=== PATIENT | male | born 1935 | race Caucasian/White ===

== ENCOUNTER → 2020-07-10 15:07 | Outpatient (BNVA) | payer MEDICARE, SELFPAY | PROVIDERS: Family Provider Family Medicine; PCP Family Medicine; Referring Provider Family Medicine; Visit Provider Specialist | DX: M79.604 Pain in right leg (principal); M79.605 Pain in left leg; G62.89 Other specified polyneuropathies | CPT/HCPCS: 95909 ==

== ENCOUNTER 2022-01-24 10:00 | Emergency (ER) | payer OTHER, SELFPAY ==
[2022-01-24 10:01] VITALS: BP 164/99; PULSE 75; RESP 17; TEMP 35.9; O2SAT 100; BMI 28.1
[2022-01-24 10:07] VITALS: BP 164/99; PULSE 76; RESP 17; O2SAT 98
--- NOTE | 2022-01-24 10:13 | CTR_ITS ---
PROCEDURE INFORMATION: Exam: CTA Head With Contrast, Arteriography Exam date and time: 01/24/2022 11:14 AM Age: 85 years old Clinical indication: Dizziness and giddiness; Additional info: Vertigo TECHNIQUE: Imaging protocol: Computed tomographic angiography of the head with contrast. Exam focused on the arteries. 3D rendering (Not supervised by radiologist): MIP and/or 3D reconstructed images were created by the technologist. Radiation optimization: All CT scans at this facility use at least one of these dose optimization techniques: automated exposure control; mA and/or kV adjustment per patient size (includes targeted exams where dose is matched to clinical indication); or iterative reconstruction. Contrast material: OMNI 350; Contrast volume: 95 ml; Contrast route: INTRAVENOUS (IV); COMPARISON: No relevant prior studies available. RADIATION DOSE METRICS: Total DLP (mGy-cm): 1068.06 FINDINGS: ANTERIOR CIRCULATION: Right internal carotid artery: There is atherosclerotic plaque most prominent in the carotid siphons with luminal irregularity. Intracranial segment is patent with no significant stenosis. No aneurysm. Right middle cerebral artery: No occlusion or significant stenosis. No aneurysm. Right anterior cerebral artery: No occlusion or significant stenosis. No aneurysm. Left internal carotid artery: There is atherosclerotic plaque most prominent in the carotid siphons with luminal irregularity. Intracranial segment is patent with no significant stenosis. No aneurysm. Left middle cerebral artery: No occlusion or significant stenosis. No aneurysm. Left anterior cerebral artery: No occlusion or significant stenosis. No aneurysm. POSTERIOR CIRCULATION: Right vertebral artery: No occlusion or significant stenosis. No aneurysm. Left vertebral artery: No occlusion or significant stenosis. No aneurysm. Basilar artery: No occlusion or significant stenosis. No aneurysm. Right posterior cerebral artery: No occlusion or significant stenosis. No aneurysm. Left posterior cerebral artery: No occlusion or significant stenosis. No aneurysm. Brain: There is diffuse cerebral atrophy present, consistent with this patient's age. Periventricular and subcortical white matter low densities are present which at this age likely represent microvascular ischemic change. Cerebral ventricles: No ventriculomegaly. Paranasal sinuses: There is mucosal thickening in multiple right ethmoid air cells. Mild mucosal thickening of the right maxillary sinus. Bones/joints: Unremarkable. No acute fracture. Soft tissues: Unremarkable. Other findings: No evidence for large acute ischemic infarction. Please note acute ischemia can be occult by head CT. PROCEDURE INFORMATION: Exam: CTA Neck With Contrast Exam date and time: 01/24/2022 11:14 AM Age: 85 years old Clinical indication: Dizziness and giddiness; Additional info: Vertigo TECHNIQUE: Imaging protocol: Computed tomographic angiography of the neck with contrast. 3D rendering (Not supervised by radiologist): MIP and/or 3D reconstructed images were created by the technologist. Radiation optimization: All CT scans at this facility use at least one of these dose optimization techniques: automated exposure control; mA and/or kV adjustment per patient size (includes targeted exams where dose is matched to clinical indication); or iterative reconstruction. Contrast material: OMNI 350; Contrast volume: 95 ml; Contrast route: INTRAVENOUS (IV); COMPARISON: No relevant prior studies available. RADIATION DOSE METRICS: Total DLP (mGy-cm): 1068.06 FINDINGS: Tubes, catheters and devices: Pacemaker with leads partially visualized. Right common carotid artery: Mild atherosclerotic plaque. No stenosis. No dissection or occlusion. Right internal carotid artery: There is atherosclerotic plaque at the origin with mild narrowing. No dissection or occlusion. Right external carotid artery: There is atherosclerotic plaque at the origin without significant stenosis or occlusion. Left common carotid artery: Mild atherosclerotic plaque. No stenosis. No dissection or occlusion. Left internal carotid artery: There is atherosclerotic plaque proximally without significant stenosis. No dissection or occlusion. Left external carotid artery: Mild atherosclerotic plaque at the origin. No occlusion or stenosis of the origin. Right vertebral artery: No stenosis. No dissection or occlusion. Left vertebral artery: No stenosis. No dissection or occlusion. Soft tissues: There are benign-appearing soft tissue calcifications. Bones/joints: There are degenerative changes in the visualized spine. CT/CT angio headneck* [id number] IMPRESSION: 1. There are senescent changes of the brain as described above. No evidence for large acute ischemic infarction or acute intracranial injury. 2. There is atherosclerotic plaque in the intracranial internal carotid arteries most prominent in the carotid siphons with luminal irregularity however no significant focal stenosis. IMPRESSION: There is atherosclerotic plaque at the origin of the right internal carotid artery with mild narrowing. REFERENCES: NASCET CRITERIA. The degree of stenosis in the cervical segment of the internal carotid artery is based on NASCET criteria. Normal is no stenosis. Mild is less than 50% stenosis. Moderate is 50-69% stenosis. Severe is 70% to 99% stenosis. Total occlusion is no detectable patent lumen.
--- NOTE | 2022-01-24 10:22 | ECG_ITS ---
[facility] Test Date: 2022-01-24 Pat Name: Eddy Miner Department: Room: Gender: Male [employer]: : 1936-06-13 Requested By: Pernell Jasso Order Number: [id number] Demarco MD: Jefferson Grover M.D. Measurements Intervals Odon Rate: 61 P: OH: QRS: -82 QRSD: 220 T: 89 QT: 499 QTc: 504 Interpretive Statements ELECTRONIC VENTRICULAR PACEMAKER ABNORMAL RHYTHM ECG No previous ECG available for comparison Electronically Signed On 01-25-2022 8:30:43 CDT by Jefferson Grover M.D. [id number]
[2022-01-24 10:26] LABS: Basophils # 0.1 10^3/uL (0.0-0.1); Basophils % 0.6 %; Eosinophils # 0.4 10^3/uL (0.0-0.8); Eosinophils % 4.9 %; Hematocrit 43.1 % (42.0-52.0); Hemoglobin 14.3 g/dL (11.7-16.6); Lymphocytes # 4.1 10^3/uL (0.8-4.8); Lymphocytes % 45.1 %; Mean Corpuscular HGB Conc 33.2 g/dL (30.0-36.0); Mean Corpuscular Volume 93.5 fl (80-94); Monocytes # 0.7 10^3/uL (0.2-0.9); Monocytes % 8.2 %; Neutrophils # 3.68 10^3/uL (1.8-7.7); Nucleated Red Blood Cells % 0 %; Platelet Count 224 10^3/cmm (130-400); Red Blood Count 4.61 10^6/uL (4.1-5.3); Red Cell Distribution Width 14.3 % (12.1-15.1)
[2022-01-24] MEDS: sodium chloride 0.9% 1,000 ML 999 ML IV (10:29)
[2022-01-24] MEDS: meclizine 25 mg tablet 50 MG PO ×2 (10:29→13:01)
--- NOTE | 2022-01-24 10:45 | PC.NURSE ---
PT PLACED ON CONTINUOUS NIBP, SPO2, AND CM
[2022-01-24 10:54] LABS: Alanine Aminotransferase 22 U/L (0-41); Albumin Level 4.6 g/dL (3.5-5.2); Alkaline Phosphatase 94 U/L (40-130); Anion Gap 14.2 (5-19); Aspartate Amino Transferase 31 U/L (0-40); Blood Urea Nitrogen 14 mg/dL (8-23); Carbon Dioxide 25 mmol/L (22-29); Chloride 101 mmol/L (98-107); Globulin 2.2 g/dL (1.3-4.6); Glucose 126 mg/dL (65-115); Lipase 28 U/L (13-60); Osmolality Calculated 284 mOsm/kg (285-295); Potassium 4.2 mmol/L (3.5-5.1); Sodium 136 mmol/L (136-145); Total Bilirubin 1.3 mg/dL (0.15-1.2); Total Protein 6.8 g/dL (6.6-8.7)
[2022-01-24 10:56] LABS: Troponin(5th) Baseline 27 ng/L (0-15)
--- NOTE | 2022-01-24 10:56 | W.ED.GENADLT ---
HPI - General Adult General: Chief complaint: Dizziness Stated complaint: DIZZY/ VOMITING Time Seen by Provider: 01/24/22 10:04 History of Present Illness: Patient is a 85M w/ hx of HTN, pacemaker dependence presenting to the ED for concerns of intermittent vertigo and light-headedness since 730am. Patient tells me upon awakening, patient has had intermittent vertigo worse with movement. Patient still reports mild 3 out of 10 vertigo. Patient has associated nausea and vomiting. Patient has any chest pain, focal weakness in the arms or legs, dysarthria, difficulty speaking, diplopia or dysphagia. Patient has no other complaints including cough, runny nose, sore throat, fever or chills, abdominal complaints, diarrhea/melena/hematochezia. Onset:730am Duration:ongoing Location:home Severity:moderate Associated symptoms: Deny chest pain, dyspnea, nausea, rash, palpitations or vomiting Review of Systems Const: Denies: fever(s) or chills Eyes: Denies: change in vision ENMT: Denies: mouth pain Card: Denies: chest pain or palpitations Resp: Denies: dyspnea or non-productive cough GI: Denies: abdominal pain, nausea, vomiting or diarrhea : Denies: dysuria Musc: Denies: extremity pain Skin/Breast: Denies: rash or new lesions Neuro: Reports: other (+vertigo/light-headedness); Denies: weakness in extremities Psych: Reports: other (Normal mood) Adarsh/Lymph: Denies: easy bruising PFS ED PFSH: Medical History (Updated 01/24/22 @ 14:14 by Pernell Jasso MD) Hypertension Pacemaker Social History (Updated 01/24/22 @ 10:58 by Pernell Jasso MD) Smoking and tobacco status: never smoked Alcohol intake: never Substance/Drug Use: never Physical Exam Const: COMMON NORMALS: alert HENMT: COMMON NORMALS: atraumatic HEAD & SCALP: atraumatic MOUTH: moist mucous membranes not abnormal Eye: COMMON NORMALS: EOMs intact bilaterally and conjunctivae normal CONJUNCTIVA: Yes conjunctivae normal Neck/C-Spine: COMMON NORMALS: full ROM and supple Resp: COMMON NORMALS: normal respiratory effort and clear to auscultation bilaterally AUSCULTATION: clear to auscultation bilaterally Cardio: COMMON NORMALS: regular rate RATE: regular rate GI: COMMON NORMALS: Soft to palpation and non-tender PALPATION: Yes Soft to palpation Extremity: COMMON NORMALS: full ROM Neuro: SENSORIUM/ORIENTATION: Yes alert MOTOR EXAM: No Abnormal motor strength present and Other motor observations present (no focal motor deficits) OTHER: Mental status? Awake, alert, and oriented to self, year, month, location, and situation.? Following simple axial and appendicular commands.? Has appropriate fund of knowledge, comprehension, and insight.? Able to recall and understands pertinent aspects of medical history and current treatment status.? ? Language? Speech is fluent without word-finding difficulties.? Intact naming, expression, healthcare receptionist, and repetition.? ? Cranial nerves? 2,3,4,6: PERRL, EOMI with no nystagmus. 5: Intact sensation to light touch, symmetric? 7: Smile symmetrical, no facial droop.? 8: Hearing grossly intact.? 9,10: Normal palate movement.? 11: Normal strength in trapezius bilaterally 12: Tongue protrudes midline.? ? Motor examination? Normal bulk & tone. Strength as follows (R/L): Delts (5/5), Biceps (5/5), Triceps (5/5), Wrist ext (5/5), hip flexors (5/5), plantarflexors (5/5), dorsiflexors (5/5). ? Reflexs? Deep tendon examination (R/L): Biceps (2+/2+), Brachialis (2+/2+), Triceps (2+/2+), Knee jerk (2+/2+), Ankle Jerk (1+, 1+), Plantars (down/down) ? Sensation? Light Touch: Grossly intact and equal in upper and lower extremities bilaterally? Distal joint position sense intact ? Coordination? Uvirev-sp-sjqn-finger movements intact without dysmetria or past-pointing.? Rapid fingertaps: preserved amplitude without decriment.? No tremor, myoclonus or truncal ataxia.? ? Gait/stance? Unable to assess gait due to vertigo symptoms Psych: COMMON NORMALS: speech normal SPEECH: Yes normal speech MOOD & AFFECT: Yes euthymic mood Course Vital Signs: Vital signs: Vital Signs Temperature 96.7 F L 01/24/22 10:01 Pulse Rate 75 09/17/22 10:01 Respiratory Rate 17 01/24/22 10:01 Blood Pressure 164/99 01/24/22 10:01 Pulse Oximetry 100 01/24/22 10:01 Oxygen Delivery Me thod 01/24/22 10:01 MDM - General Adult Medical Decision Making Patient is a 85M w/ hx of HTN, pacemaker dependence presenting to the ED for concerns of intermittent vertigo and light-headedness since 730am. Patient is neurologically intact. I was unable to assess gait due to vertigo sensation upon movement and standing. Patient received IV of meclizine with reports vertigo lightheadedness improved. Lab work-up largely unremarkable. CT head negative for any acute pathology. CTA is negative for any posterior fossa pathologies. At the present time, patient has a pacemaker and is not a candidate for MRI. Patient received meclizine and IVF and is now able to ambulate with a walker. I have given patient close follow-up primary care provider next 2 to 3 days for reassessment. As patient's symptoms are positional intermittent with negative CTA evaluation, I suspect this is likely peripheral vertigo. Rx meclizine PRN vertigo Disposition: Discharge. Patient counseled regarding diagnostic impression, treatment plan. Patient given ED strict return precautions to return for continuation, worsening, or development of new symptoms. Instructed to f/u w/ PCP regarding symptoms today. Patient verbalized understanding. Lab Data : 01/24/22 10:14 01/24/22 10:14 Radiology Impressions Head/Neck CTA 01/24/22 10:13 IMPRESSION: 1. There are senescent changes of the brain as described above. No evidence for large acute ischemic infarction or acute intracranial injury. 2. There is atherosclerotic plaque in the intracranial internal carotid arteries most prominent in the carotid siphons with luminal irregularity however no significant focal stenosis. IMPRESSION: There is atherosclerotic plaque at the origin of the right internal carotid artery with mild narrowing. REFERENCES: NASCET CRITERIA. The degree of stenosis in the cervical segment of the internal carotid artery is based on NASCET criteria. Normal is no stenosis. Mild is less than 50% stenosis. Moderate is 50-69% stenosis. Severe is 70% to 99% stenosis. Total occlusion is no detectable patent lumen. Laboratory Results WBC 9.0 10^3/uL (4.0-10.0) 01/24/22 10:14 RBC 4.61 10^6/uL (4.1-5.3) 01/24/22 10:14 Hgb 14.3 g/dL (11.7-16.6) 01/24/22 10:14 Hct 43.1 % (42.0-52.0) 01/24/22 10:14 MCV 93.5 fl (80-94) 01/24/22 10:14 MCH 31.0 pg (28.0-34.0) 01/24/22 10:14 MCHC 33.2 g/dL (30.0-36.0) 01/24/22 10:14 RDW 14.3 % (12.1-15.1) 01/24/22 10:14 Plt Count 224 10^3/cmm (130-400) 01/24/22 10:14 MPV 9.0 fL (7.4-10.4) 01/24/22 10:14 Neut % (Auto) 41.0 % 01/24/22 10:14 Lymph % (Auto) 45.1 % 01/24/22 10:14 [place] % (Auto) 8.2 % 01/24/22 10:14 Eos % (Auto) 4.9 % 01/24/22 10:14 Baso % (Auto) 0.6 % 01/24/22 10:14 Neut # (Auto) 3.68 10^3/uL (1.8-7.7) 01/24/22 10:14 Lymph # (Auto) 4.1 10^3/uL (0.8-4.8) 01/24/22 10:14 [place] # (Auto) 0.7 10^3/uL (0.2-0.9) 01/24/22 10:14 Eos # (Auto) 0.4 10^3/uL (0.0-0.8) 01/24/22 10:14 Baso # (Auto) 0.1 10^3/uL (0.0-0.1) 01/24/22 10:14 Nucleated RBC % (auto) 0 % 01/24/22 10:14 Nucleated RBCs # 0.0 /100WBC 01/24/22 10:14 Sodium 136 mmol/L (136-145) 01/24/22 10:14 Potassium 4.2 mmol/L (3.5-5.1) 01/24/22 10:14 Chloride 101 mmol/L (98-107) 01/24/22 10:14 Carbon Dioxide 25 mmol/L (22-29) 01/24/22 10:14 Anion Gap 14.2 (5-19) 01/24/22 10:14 BUN 14 mg/dL (8-23) 01/24/22 10:14 Creatinine 1.1 mg/dL (0.7-1.2) 01/24/22 10:14 GFR Calculation Not Reportable 01/24/22 10:14 Glucose 126 mg/dL (65-115) H 01/24/22 10:14 Calculated Osmolality 284 mOsm/kg (285-295) L 01/24/22 10:14 Calcium 10.0 mg/dL (8.5-10.5) 01/24/22 10:14 Total Bilirubin 1.3 mg/dL (0.15-1.2) H 01/24/22 10:14 AST 31 U/L (0-40) 01/24/22 10:14 ALT 22 U/L (0-41) 01/24/22 10:14 Alkaline Phosphatase 94 U/L (40-130) 01/24/22 10:14 Troponin T Baseline 27 ng/L (0-15) H 01/24/22 10:14 Troponin T 120 Minute 21.43 ng/L (0-15) H 01/24/22 13:10 Delta Troponin T -5.57 ABS# (0-10) L 01/24/22 13:10 Total Protein 6.8 g/dL (6.6-8.7) 01/24/22 10:14 Albumin 4.6 g/dL (3.5-5.2) 01/24/22 10:14 Globulin 2.2 g/dL (1.3-4.6) 01/24/22 10:14 Lipase 28 U/L (13-60) 01/24/22 10:14 Urine Color Yellow (Yellow) 01/24/22 10:15 Urine Appearance Clear (CLEAR) 01/24/22 10:15 Urine pH 8 (5-7) H 01/24/22 10:15 Ur Specific [place] 1.005 (1.005-1.030) 01/24/22 10:15 Urine Protein Neg (Negative) 01/24/22 10:15 Urine Glucose (UA) Norm (Normal) 01/24/22 10:15 Urine Ketones Negative (Negative) 01/24/22 10:15 Urine Blood Neg (Negative) 01/24/22 10:15 Urine Nitrate Negative (Negative) 01/24/22 10:15 Urine Bilirubin Neg (Negative) 01/24/22 10:15 Prot Sulfosalicylic Acd Negative (Negative) 01/24/22 10:15 Urine Urobilinogen Norm mg/dL (Negative) 01/24/22 10:15 Ur Leukocyte Esterase Negative (Negative) 01/24/22 10:15 Imaging Data Other Imaging: Radiologist's impression: [place] [address] CT Scan Report Signed Patient: Eddy Miner Unit #: [id number] : 06/13/1936 Age/Sex: 85 / M ADM Date: 01/24/22 Loc: ER Room/Bed: Attending Dr: Ordering Provider/Ordering MD: Pernell Jasso MD Date of Service: 01/24/22 Procedure(s): CT angio [facility] [place]* [id number] Accession Number(s): [id number] Report Number: [id number] PROCEDURE INFORMATION: Exam: CTA Head With Contrast, Arteriography Exam date and time: 01/24/2022 11:14 AM Age: 85 years old Clinical indication: Dizziness and giddiness; Additional info: Vertigo TECHNIQUE: Imaging protocol: Computed tomographic angiography of the head with contrast. Exam focused on the arteries. 3D rendering (Not supervised by radiologist): MIP and/or 3D reconstructed images were created by the technologist. Radiation optimization: All CT scans at this facility use at least one of these dose optimization techniques: automated exposure control; mA and/or kV adjustment per patient size (includes targeted exams where dose is matched to clinical indication); or iterative reconstruction. Contrast material: OMNI 350; Contrast volume: 95 ml; Contrast route: INTRAVENOUS (IV);? COMPARISON: No relevant prior studies available. RADIATION DOSE METRICS: Total DLP (mGy-cm): 1068.06 FINDINGS: ANTERIOR CIRCULATION: Right internal carotid artery: There is atherosclerotic plaque most prominent in the carotid siphons with luminal irregularity. Intracranial segment is patent with no significant stenosis. No aneurysm. Right middle cerebral artery: No occlusion or significant stenosis. No aneurysm.? Right anterior cerebral artery: No occlusion or significant stenosis. No aneurysm.? Left internal carotid artery: There is atherosclerotic plaque most prominent in the carotid siphons with luminal irregularity. Intracranial segment is patent with no significant stenosis. No aneurysm. Left middle cerebral artery: No occlusion or significant stenosis. No aneurysm.? Left anterior cerebral artery: No occlusion or significant stenosis. No aneurysm.? POSTERIOR CIRCULATION: Right vertebral artery: No occlusion or significant stenosis. No aneurysm.? Left vertebral artery: No occlusion or significant stenosis. No aneurysm.? Basilar artery: No occlusion or significant stenosis. No aneurysm. Right posterior cerebral artery: No occlusion or significant stenosis. No aneurysm.? Left posterior cerebral artery: No occlusion or significant stenosis. No aneurysm.? Brain: There is diffuse cerebral atrophy present, consistent with this patient's age. Periventricular and subcortical white matter low densities are present which at this age likely represent microvascular ischemic change. Cerebral ventricles: No ventriculomegaly. Paranasal sinuses: There is mucosal thickening in multiple right ethmoid air cells. Mild mucosal thickening of the right maxillary sinus. Bones/joints: Unremarkable. No acute fracture. Soft tissues: Unremarkable. Other findings: No evidence for large acute ischemic infarction. Please note acute ischemia can be occult by head CT. PROCEDURE INFORMATION: Exam: CTA Neck With Contrast Exam date and time: 01/24/2022 11:14 AM Age: 85 years old Clinical indication: Dizziness and giddiness; Additional info: Vertigo TECHNIQUE: Imaging protocol: Computed tomographic angiography of the neck with contrast. 3D rendering (Not supervised by radiologist): MIP and/or 3D reconstructed images were created by the technologist. Radiation optimization: All CT scans at this facility use at least one of these dose optimization techniques: automated exposure control; mA and/or kV adjustment per patient size (includes targeted exams where dose is matched to clinical indication); or iterative reconstruction. Contrast material: OMNI 350; Contrast volume: 95 ml; Contrast route: INTRAVENOUS (IV);? COMPARISON: No relevant prior studies available. RADIATION DOSE METRICS: Total DLP (mGy-cm): 1068.06 FINDINGS: Tubes, catheters and devices: Pacemaker with leads partially visualized. Right common carotid artery: Mild atherosclerotic plaque. No stenosis. No dissection or occlusion. Right internal carotid artery: There is atherosclerotic plaque at the origin with mild narrowing. No dissection or occlusion. Right external carotid artery: There is atherosclerotic plaque at the origin without significant stenosis or occlusion. Left common carotid artery: Mild atherosclerotic plaque. No stenosis. No dissection or occlusion. Left internal carotid artery: There is atherosclerotic plaque proximally without significant stenosis. No dissection or occlusion. Left external carotid artery: Mild atherosclerotic plaque at the origin. No occlusion or stenosis of the origin. Right vertebral artery: No stenosis. No dissection or occlusion. Left vertebral artery: No stenosis. No dissection or occlusion. Soft tissues: There are benign-appearing soft tissue calcifications. Bones/joints: There are degenerative changes in the visualized spine. CT/CT angio headneck* [id number] IMPRESSION: 1. There are senescent changes of the brain as described above. No evidence for large acute ischemic infarction or acute intracranial injury. 2. There is atherosclerotic plaque in the intracranial internal carotid arteries most prominent in the carotid siphons with luminal irregularity however no significant focal stenosis. ? ? IMPRESSION: There is atherosclerotic plaque at the origin of the right internal carotid artery with mild narrowing. ? REFERENCES: NASCET CRITERIA. The degree of stenosis in the cervical segment of the internal carotid artery is based on NASCET criteria. Normal is no stenosis. Mild is less than 50% stenosis. Moderate is 50-69% stenosis. Severe is 70% to 99% stenosis. Total occlusion is no detectable patent lumen. ? Dictated By: Donna Rivera MD Signed By: Donna Rivera MD Signed Date/Time: 01/24/22 1222 DD/ 1114 Discharge Plan Discharge Patient Disposition: Home Clinical Impression: Vertigo Prescriptions: New meclizine 50 mg tablet 50 mg PO BID PRN (Reason: vertigo) 10 Days Qty: 20 0RF No Action diltiazem HCl 120 mg capsule,extended release 24 hr 120 mg PO DAILY dutasteride 0.5 mg capsule 0.5 mg PO DAILY fluticasone propionate 50 mcg/actuation spray,suspension 1 spray intranasal Q12H Rx Instructions: administer into each nostril gabapentin 100 mg capsule 300 mg PO BID montelukast 10 mg tablet 10 mg PO DAILY omeprazole 20 mg tablet,delayed release (DR/EC) 20 mg PO DAILY trazodone 50 mg tablet 50 mg PO BEDTIME warfarin 3 mg tablet See Rx Instructions .ROUTE .COMPLEX Rx Instructions: 3 mg orally daily Wed-Wed and 5mg on Sundays multivitamin Tablet 1 tab PO DAILY vitamin A 2,400 mcg Capsule 2,400 mcg PO DAILY cetirizine 10 mg Tablet 10 mg PO BID potassium 99 mg Tablet 99 mg PO BEDTIME saw palmetto 160 mg Capsule 160 mg PO TID Rx Instructions: give with meal/snack Super B Complex Capsule 1 cap PO DAILY Vitamin D3 25 mcg (1,000 unit) Capsule 25 mcg PO DAILY coenzyme Q10 100 mg Capsule 100 mg PO DAILY Osteo Bi-Flex 250-200 mg Tablet 1 tab PO BID Rx Instructions: give after food/meal Acetyl L-Carnitine 250 mg Capsule 250 mg PO DAILY Romie Mag Zinc Plus D3 333 mg-133 unit -133 mg-5 mg Tablet 1 tab PO DAILY melatonin 10 mg Tablet 10 mg PO BEDTIME Combivent Respimat 20-100 mcg/actuation Mist 1 puff INHALATION BID Rx Instructions: space evenly during waking hours turmeric 400 mg Capsule 400 mg PO BID ashwagandha root extract 300 mg Capsule 300 mg PO DAILY Discharge Orders: Discharge ED (Routine); Ordered 01/24/22 Ordered By: Pernell Jasso Referrals: Shayla Mesa MD [Primary Care Provider] - Discharge Diet: Advance as tolerated Discharge Activity: Increase activity as tolerated Patient Instructions: Dizziness (ED) Activity Restrictions/Additional Instructions: Please follow-up with your primary care provider in the next 48 to 72 hours for an echo evaluation of your carotid to ensure that you will have a stroke. We cannot do an MRI today because of your pacemaker. Come back if you have any new or concerning complaints including focal weakness in the arms or legs, facial droop, double vision, drooling, slurring of speech, or any new or concerning complaints. Coding Level of Care Code ED Cafeteria Aide for [facility]an Fwd Exam Comprehensive
[2022-01-24] MEDS: iohexol 350 mg/mL 100 mL Btl IV (11:30)
[2022-01-24 12:07] VITALS: BP 156/86; PULSE 60; RESP 20; O2SAT 95
--- NOTE | 2022-01-24 12:09 | ECG_ITS ---
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 Measurements Intervals [place] Rate: 60 P: OR: QRS: -80 QRSD: 211 T: 89 QT: 511 QTc: 511 Interpretive Statements ELECTRONIC VENTRICULAR PACEMAKER ABNORMAL RHYTHM ECG Compared to ECG 01/24/2022 10:22:14 No significant changes Electronically Signed On 01-25-2022 8:37:27 CDT by Jefferson Grover M.D. [id number]
[2022-01-24 12:25] LABS: Add Urine Microscopic? NO; Charge for UA Resulting for Rev
[2022-01-24 12:31] LABS: Specific Gravity, Urine 1.005 (1.005-1.030); Urine Appearance Clear (CLEAR); Urine Color Yellow (Yellow); pH Urine 8 (5-7)
[2022-01-24 12:32] LABS: Bilirubin Urine Neg (Negative); Blood Urine Neg (Negative); Glucose Urine UA Norm (Normal); Ketones Urine Negative (Negative); Leukocyte Esterase Urine Negative (Negative); Nitrate Urine Negative (Negative); Protein Urine Neg (Negative); Sulfosalicylic Acid Urine Negative (Negative); Urobilinogen Urine Norm (Negative)
[2022-01-24 13:07] VITALS: BP 175/75; PULSE 66; RESP 19; O2SAT 98
[2022-01-24 13:50] LABS: Troponin 5 2HR 21.43 ng/L (0-15)
[2022-01-24 13:53] LABS: Troponin 5 2HR Delta -5.57 ABS# (0-10)
[2022-01-24 14:07] VITALS: BP 165/91; PULSE 67; O2SAT 97
[2022-01-24 14:52] VITALS: BP 148/77; PULSE 61; RESP 18; O2SAT 96
== END 2022-01-24 14:45 | disposition home or self-care (01) ==
PROVIDERS: Emergency Provider Emergency Medicine; PCP Family Medicine
DX: R42 Dizziness and giddiness (principal); I10 Essential (primary) hypertension; Z95.0 Presence of cardiac pacemaker
CPT/HCPCS: 70496; 70498; 80053; 81003; 83690; 84484; 85025; 93005; 96360; 99285; J7030; J8597; Q9967

== ENCOUNTER → 2022-02-25 09:58 | Outpatient (BNVA) | payer OTHER, SELFPAY | PROVIDERS: PCP Family Medicine; Visit Provider Internal Medicine Cardiovascular Disease | DX: R42 Dizziness and giddiness (principal); I10 Essential (primary) hypertension; Z95.0 Presence of cardiac pacemaker; Z87.891 Personal history of nicotine dependence | CPT/HCPCS: 99204 ==

== ENCOUNTER 2022-03-24 18:10 | Emergency (ER) | payer OTHER, SELFPAY ==
[2022-03-24 18:12] VITALS: BP 103/65; PULSE 90; RESP 18; TEMP 36.8; O2SAT 93; BMI 28.7
--- NOTE | 2022-03-24 18:28 | ED_ITS ---
HPI - Skin/Abscess/Foreign Bdy General: Chief complaint: Skin/Abscess/Foreign Body Stated complaint: ALLERGIC REACTION Time Seen by Provider: 03/24/22 18:12 Source: patient and EMS Mode of arrival: EMS Limitations: no limitations History of Present Illness: 85-year-old male who is started taking amoxicillin today for possible sinusitis he states that after taking it he started having urticaria and rash along with stream pruritus he had some slight difficulty breathing that is since resolved he did receive 25 mg of Benadryl in route and states he feels improved he still does have a rash to his trunk and extremities no difficulty breathing or talking. Associated symptoms: Deny chills, fever(s), nausea or vomiting Review of Systems Const: Denies: fever(s), chills, body aches or change in appetite Eyes: Denies: blurry vision or eye discomfort ENMT: Denies: throat pain or dental pain Card: Denies: chest pain Resp: Denies: dyspnea GI: Denies: abdominal pain, nausea, vomiting or diarrhea : Denies: dysuria Musc: Denies: neck pain or back pain Skin/Breast: Reports: rash and pruritus Neuro: Denies: headache(s) Psych: Denies: depression Adarsh/Lymph: Denies: easy bruising All/Imm: Reports: urticaria PFSH ED PFSH: Medical History Hypertension Pacemaker Surgical History S/P cardiac pacemaker procedure S/P knee surgery S/P vasectomy Family History Mother Myocardial infarction Social History Smoking and tobacco status: former smoker Alcohol intake: never Physical Exam Const: COMMON NORMALS: no acute distress, patient oriented x3 and healthy appearing HENMT: COMMON NORMALS: normocephalic and atraumatic HEAD & SCALP: normocephalic and atraumatic Eye: COMMON NORMALS: conjunctivae normal CONJUNCTIVA: Yes conjunctivae normal Neck/C-Spine: COMMON NORMALS: full ROM and supple Chest: COMMONS NORMALS: normal inspection of the chest and normal palpation of entire chest wall Resp: COMMON NORMALS: normal respiratory effort, No retractions, No use of accessory muscles and clear to auscultation bilaterally AUSCULTATION: clear to auscultation bilaterally Cardio: COMMON NORMALS: regular rate, regular rhythm and No murmurs present (Cardio) RATE: regular rate RHYTHM: regular rhythm GI: COMMON NORMALS: Normal to inspection, nondistended, normoactive bowel sounds present, Soft to palpation, non-tender and no masses PALPATION: Yes Soft to palpation Extremity: COMMON NORMALS: normal to inspection and full ROM Neuro: COMMON NORMALS: patient oriented x3, moves all extremities and no focal motor deficits Psych: COMMON NORMALS: mental status grossly normal, Normal thought process present and cooperative THOUGHT PROCESS: Normal thought process present Skin: COMMON NORMALS: no wounds NARRATIVE SKIN EXAM: Maculopapular rash to extremities and trunk Course Vital Signs: Vital signs: Vital Signs Temperature 98.2 F 03/24/22 18:12 Pulse Rate 63 03/24/22 19:29 Respiratory Rate 17 03/24/22 19:29 Blood Pressure 121/70 03/24/22 19:29 Pulse Oximetry 98 03/24/22 19:29 Oxygen Delivery Me thod 03/24/22 19:29 MDM - Skin/Abscess/Foreign Bdy Medicial Decision Making Patient presents with allergic reaction likely amoxicillin his rash here has resolved we will place on 5 days of steroids and have him stop Amoxil and placed on Keflex. Discharge Plan Discharge Patient Disposition: Home Clinical Impression: Allergic reaction to drug Condition: Stable Prescriptions: New cephalexin 500 mg capsule 500 mg PO TID 7 Days Qty: 21 0RF prednisone 50 mg tablet 50 mg PO DAILY Qty: 5 0RF No Action diltiazem HCl 120 mg capsule,extended release 24 hr 120 mg PO DAILY dutasteride 0.5 mg capsule 0.5 mg PO DAILY fluticasone propionate 50 mcg/actuation spray,suspension 1 spray intranasal Q12H Rx Instructions: administer into each nostril gabapentin 100 mg capsule 300 mg PO BID montelukast 10 mg tablet 10 mg PO DAILY omeprazole 20 mg tablet,delayed release (DR/EC) 20 mg PO DAILY trazodone 50 mg tablet 50 mg PO BEDTIME warfarin 3 mg tablet See Rx Instructions .ROUTE .COMPLEX Rx Instructions: 3 mg orally daily Wed-Wed and 5mg on Sundays aspirin [Adult Low Dose Aspirin] 81 mg tablet,delayed release (DR/EC) 81 mg PO DAILY multivitamin Tablet 1 tab PO DAILY vitamin A 2,400 mcg Capsule 2,400 mcg PO DAILY cetirizine 10 mg Tablet 10 mg PO BID potassium 99 mg Tablet 99 mg PO BEDTIME saw palmetto 160 mg Capsule 160 mg PO TID Rx Instructions: give with meal/snack Super B Complex Capsule 1 cap PO DAILY Vitamin D3 25 mcg (1,000 unit) Capsule 25 mcg PO DAILY coenzyme Q10 100 mg Capsule 100 mg PO DAILY Osteo Bi-Flex 250-200 mg Tablet 1 tab PO BID Rx Instructions: give after food/meal Acetyl L-Carnitine 250 mg Capsule 250 mg PO DAILY Romie Mag Zinc Plus D3 333 mg-133 unit -133 mg-5 mg Tablet 1 tab PO DAILY melatonin 10 mg Tablet 10 mg PO BEDTIME Combivent Respimat 20-100 mcg/actuation Mist 1 puff INHALATION BID Rx Instructions: space evenly during waking hours turmeric 400 mg Capsule 400 mg PO BID ashwagandha root extract 300 mg Capsule 300 mg PO DAILY Discharge Orders: Discharge ED (Routine); Ordered 03/24/22 Ordered By: Bin Fajardo Referrals: Shayla Mesa MD [Primary Care Provider] - Discharge Diet: Advance as tolerated Discharge Activity: Resume usual activity Patient Instructions: General Allergic Reaction (ED) Activity Restrictions/Additional Instructions: stop amoxil Coding Level of Care Code ED 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
[2022-03-24] MEDS: famotidine 20 mg/2 mL INJ 40 MG IVP (18:51)
[2022-03-24 19:29] VITALS: BP 121/70; PULSE 63; RESP 17; O2SAT 98
== END 2022-03-24 19:39 | disposition home or self-care (01) ==
PROVIDERS: Emergency Provider Emergency Medicine; PCP Family Medicine
DX: L27.0 Generalized skin eruption due to drugs and medicaments taken internally (principal); T36.0X5A Adverse effect of penicillins, initial encounter; Z79.82 Long term (current) use of aspirin; Z79.01 Long term (current) use of anticoagulants; I10 Essential (primary) hypertension; Z95.0 Presence of cardiac pacemaker; Z87.891 Personal history of nicotine dependence
CPT/HCPCS: 96374; 96375; 99284; J2930; J3490

== ENCOUNTER 2022-05-04 08:47 | Emergency (ER) | payer OTHER, SELFPAY ==
[2022-05-04] VITALS (48 sets, daily range): BP systolic 114–164; BP diastolic 64–93; PULSE 65–79; RESP 14–16; TEMP 36.4; O2SAT 91–98; BMI 29.9
--- NOTE | 2022-05-04 10:12 | USCV_ITS ---
KristoferEddy avila Age: 85 Gender: M : 06/13/1936 Exam Date: 05/04/2022 10:32 Ordering Phys: Georgie Lawson Technologist: Dameon Dimas [place] [facility] [place]: Rt leg pain and swelling PROCEDURES: Venous duplex imaging was performed in only the right lower extremity. The following venous structures were evaluated: common femoral vein, profunda vein, proximal portion of the greater saphenous vein, superficial femoral vein, and the popliteal vein. In addition, the posterior tibial and peroneal trunk were evaluated. On the right side, the common femoral, superficial femoral, profunda femoral, popliteal, posterior tibial, greater saphenous veins and the peroneal trunk were identified and interrogated in the standard fashion. These veins were found to be easily compressible with spontaneous blood flow. No evidence of insufficiency or thrombus noted. FINDINGS: Normal 2-D Doppler and augmentation and compressibility throughout the lower extremity venous structures. Additional imaging through the proximal calf veins also reveals no thrombus. Limited evaluation of the greater saphenous vein is patent with no thrombus.. CONCLUSIONS No evidence of right lower extremity DVT. Kenneth Brunner MD (Electronically Signed) Final Date: 04 May 2022 10:56 S
[2022-05-04 12:33] LABS: Basophils % 0.3 %; Eosinophils # 0.3 10^3/uL (0.0-0.8); Hematocrit 39.1 % (42.0-52.0); Hemoglobin 12.6 g/dL (11.7-16.6); Lymphocytes # 3.1 10^3/uL (0.8-4.8); Lymphocytes % 33.8 %; Mean Corpuscular HGB Conc 32.2 g/dL (30.0-36.0); Mean Corpuscular Hemoglobin 30.1 pg (28.0-34.0); Mean Corpuscular Volume 93.5 fl (80-94); Mean Platelet Volume 9.1 fL (7.4-10.4); Monocytes # 1.3 10^3/uL (0.2-0.9); Monocytes % 13.6 %; Neutrophils # 4.54 10^3/uL (1.8-7.7); Neutrophils % 49.1 %; Nucleated Red Blood Cells % 0 %; Platelet Count 203 10^3/cmm (130-400); Red Blood Count 4.18 10^6/uL (4.1-5.3); Red Cell Distribution Width 14.7 % (12.1-15.1); White Blood Count 9.3 10^3/uL (4.0-10.0)
[2022-05-04] MEDS: cefTRIAXone 2,000 MG in sodium chloride 0.9% (plus) 50 ML 100 MG IV (12:42)
[2022-05-04 12:45] LABS: Alanine Aminotransferase 24 U/L (0-41); Albumin Level 3.9 g/dL (3.5-5.2); Alkaline Phosphatase 102 U/L (40-130); Aspartate Amino Transferase 28 U/L (0-40); Blood Urea Nitrogen 14 mg/dL (8-23); Calcium 9.4 mg/dL (8.5-10.5); Carbon Dioxide 24 mmol/L (22-29); Chloride 100 mmol/L (98-107); Globulin 2.8 g/dL (1.3-4.6); Glucose 94 mg/dL (65-115); Osmolality Calculated 278 mOsm/kg (285-295); Sodium 134 mmol/L (136-145); Total Bilirubin 1.1 mg/dL (0.15-1.2); Total Protein 6.7 g/dL (6.6-8.7)
--- NOTE | 2022-05-04 13:11 | W.ED.EXTPRO ---
HPI - Extremity Problem General: Chief complaint: Extremity Injury, Lower Stated complaint: right leg swelling with pain Time Seen by Provider: 05/04/22 08:49 History of Present Illness: Mr. Miner is an 85-year-old man that presents to the emergency department with 4-day history of right lower extremity swelling, redness, tenderness. Patient has a long history of probably peripheral neuropathy. Patient reports last night he had a sudden increase in pain and burning in the right lower extremity. He noted a wound to the very aspect of the extremity and development of a new wound on the anterior aspect of the right lower extremity. There is mild increase in temperature when comparing to the contralateral side. Patient denies any fevers chills chest pain or shortness of breath. Medical history includes atrial fibrillation, hypertension, borderline diabetic, asthma, and GERD. Associated symptoms: Deny chest pain, fever(s) or rash Review of Systems General: Reports: 10 or more systems reviewed and unremarkable except in HPI and below Const: Denies: fever(s), chills, change in appetite, change in weight, fatigue or malaise Eyes: Denies: change in vision, eye discomfort, eye discharge or eye redness ENMT: Denies: throat pain, enlarged tonsils, odynophagia, hoarseness, ear or mastoid pain, ear discharge, change in hearing, tinnitus, nasal discharge, nasal congestion, post nasal drip or sinus pain Card: Denies: chest pain, palpitations, irregular heart rhythm, edema, dyspnea on exertion, orthopnea or leg pain with exertion Resp: Denies: dyspnea, productive cough, non-productive cough, wheezing, stridor or chest congestion GI: Denies: abdominal pain, nausea, vomiting, dysphagia, diarrhea, constipation, bloating, GI cramping or hematochezia : Denies: flank pain, dysuria, urinary frequency, urinary urgency, urinary hesitancy, oliguria or hematuria Musc: Reports: extremity pain and extremity swelling; Denies: neck pain, back pain, joint pain, joint swelling, joint redness, joint warmth or muscle weakness Skin/Breast: Denies: rash, pruritus, erythema, photosensitivity or new lesions Neuro: Denies: headache(s), numbness in extremities, weakness in extremities, sensory changes, lack of coordination, difficulty walking, frequent falls, dizziness, confusion, Slurred speech present, difficulty communicating thoughts, seizure-like activity or involuntary movements Endo: Denies: polyuria, polydipsia or tired all the time Adarsh/Lymph: Denies: easy bruising or easy bleeding PFSH ED PFSH: Medical History Hypertension Pacemaker Surgical History S/P cardiac pacemaker procedure S/P knee surgery S/P vasectomy Family History Mother Myocardial infarction Social History Smoking and tobacco status: former smoker Alcohol intake: never Physical Exam Const: COMMON NORMALS: no acute distress, average body habitus, patient oriented x3, no limitations, healthy appearing, alert and well nourished GENERAL APPEARANCE: cooperative, comfortable and well developed; not in distress and not anxious ORIENTATION/CONSCIOUSNESS: Yes awake, Yes oriented to person, Yes oriented to place and Yes oriented to time HENMT: COMMON NORMALS: normocephalic, atraumatic, hearing grossly normal bilaterally, external ears normal, EAC's normal, TM's normal bilaterally, Normal external nose present and Normal nasal mucous membranes and turbinates present HEAD & SCALP: normal to inspection, normocephalic and atraumatic FACE & SINUS: normal facial exam and face symmetric NOSE: Normal external nose present, Normal nares present and Normal nasal mucous membranes and turbinates present GENERAL EAR: hearing not grossly impaired EXTERNAL EAR: Yes external ears normal and Yes no periauricular adenopathy EXTERNAL AUDITORY CANAL: EAC's normal TYMPANIC MEMBRANE: TM's normal bilaterally MOUTH: Normal oral and palatal mucosa present, lip normal, tongue normal and Normal salivary glands and ducts present THROAT: posterior oropharynx normal, tonsils normal and uvula midline Eye: COMMON NORMALS: Equal, round and reactive pupils present, EOMs intact bilaterally, conjunctivae normal, no scleral icterus and no papilledema GENERAL EYE: appearance normal, both eyes and all related structures ALIGNMENT: Yes alignment normal PERIORBITAL: periorbital findings normal EYELID: eyelids normal CONJUNCTIVA: Yes conjunctivae normal PUPIL: Yes Equal, round and reactive pupils present DIRECT OPHTHALMOSCOPY: Yes no papilledema Neck/C-Spine: COMMON NORMALS: full ROM, supple, no meningeal signs and no JVD GENERAL: Yes normal visual inspection CERVICAL SPINE: Yes cervical ROM normal Lymph: LYMPHATIC: no lymphadenopathy noted Chest: COMMONS NORMALS: normal inspection of the chest Breast/axilla inspection: Yes no chest deformity, asymmetry, normal contours, no nodules, masses, tenderness Resp: COMMON NORMALS: normal respiratory effort, No retractions, No use of accessory muscles and clear to auscultation bilaterally EFFORT & INSPECTION: Yes able to speak in complete sentences, Yes symmetric chest movement, No abnormal respiratory pattern, No tachypneic and No respiratory distress AUSCULTATION: clear to auscultation bilaterally Cardio: COMMON NORMALS: no JVD, regular rate, regular rhythm and Peripheral pulses 2+ throughout RATE: regular rate RHYTHM: regular rhythm PERIPHERAL PULSES: Peripheral pulses 2+ throughout GI: COMMON NORMALS: Normal to inspection, nondistended, normoactive bowel sounds present, Soft to palpation and non-tender INSPECTION: Yes normal to inspection PALPATION: Yes Soft to palpation : COMMON NORMALS: Yes no CVA tenderness BLADDER/KIDNEY EXAM: Yes no CVA tenderness and Yes CVA tenderness Back/Pelvis: COMMON NORMALS: no CVA tenderness, thoracic and lumbar spine normal to inspection, no thoracic nor lumbar tenderness, thoraco-lumbar ROM normal and straight leg raise negative bilaterally GENERAL BACK: Yes CVA tenderness and No ecchymosis THORACIC SPINE/UPPER BACK: Yes normal to inspection LUMBAR SPINE/LOWER BACK: Yes normal to inspection and Yes straight leg raise negative bilaterally Extremity: COMMON NORMALS: normal to inspection, full ROM and capillary refill normal GENERAL: Yes normal exam except as noted Neuro: COMMON NORMALS: patient oriented x3 SENSORIUM/ORIENTATION: Yes alert, Yes oriented to person, Yes oriented to place and Yes oriented to time MENINGEAL SIGNS: Yes no meningeal signs Psych: COMMON NORMALS: mental status grossly normal, Normal thought process present, cooperative, normal affect, speech normal and activity/motor behavior normal SPEECH: Yes normal speech THOUGHT PROCESS: Normal thought process present Skin: COMMON NORMALS: turgor normal, no jaundice, no petechiae and no mottling NARRATIVE SKIN EXAM: Right lower extremity: Scab to posterior aspect of the right lower extremity. Approximately 1 cm in size. Extremity is erythematous along with warmth and edema but has a increase in erythema in the anterior aspect of the right lower extremity mid tibia. Patient has full range of motion of knee and ankle. Patient is able to dorsiflex plantarflex the foot Patient is able to dorsiflex great toe Sensation intact to light touch at medial, lateral, dorsal, plantar surface of the foot with first webspace SKIN IMAGES (MALE): 1. Scab-necrotic, approximately 1 cm in diameter 2. Area of increased erythema and warmth GENERAL SKIN EXAM: turgor normal and other Course Vital Signs: Vital signs: Vital Signs Temperature 97.6 F 05/04/22 09:21 Pulse Rate 79 05/04/22 09:21 Respiratory Rate 14 05/04/22 09:21 Blood Pressure 123/79 05/04/22 12:35 Pulse Oximetry 97 05/04/22 12:35 Oxygen Delivery Me thod 05/04/22 09:21 MDM - Extremity (Nontraumatic) Medical Decision Making Patient was evaluated in room 1. Arrived with 24 to 48-hour history of increased erythema warmth and edema to the right lower extremity. Patient did undergo ultrasound of the right lower extremity which reveals no evidence DVT. Patient reports he has had a number of rashes and has follow-up with dermatology. Patient is also being closely followed by primary care doctor, Dr. Vasquez. Was evaluated here in the emergency department for DVT as well as infection. He does not have evidence of systemic infection. No elevated white blood cell count. Electrolyte abnormalities, organ dysfunction, evidence of leukocytosis. I am going to treat him for cellulitis/abscess. He has no area of identifiable abscess as there is no fluctuance or induration. Given ceftriaxone and will be discharged home on cephalexin. Patient I have discussed him following up with primary care. He should call their office tomorrow. Medical Records I reviewed the patient's medical records. Lab Data I reviewed the patient's lab results. 05/04/22 11:56 05/04/22 11:56 Laboratory Results WBC 9.3 10^3/uL (4.0-10.0) 05/04/22 11:56 RBC 4.18 10^6/uL (4.1-5.3) 05/04/22 11:56 Hgb 12.6 g/dL (11.7-16.6) 05/04/22 11:56 Hct 39.1 % (42.0-52.0) L 05/04/22 11:56 MCV 93.5 fl (80-94) 05/04/22 11:56 MCH 30.1 pg (28.0-34.0) 05/04/22 11:56 MCHC 32.2 g/dL (30.0-36.0) 05/04/22 11:56 RDW 14.7 % (12.1-15.1) 05/04/22 11:56 Plt Count 203 10^3/cmm (130-400) 05/04/22 11:56 MPV 9.1 fL (7.4-10.4) 05/04/22 11:56 Neut % (Auto) 49.1 % 05/04/22 11:56 Lymph % (Auto) 33.8 % 05/04/22 11:56 [place] % (Auto) 13.6 % 05/04/22 11:56 Eos % (Auto) 3.0 % 05/04/22 11:56 Baso % (Auto) 0.3 % 05/04/22 11:56 Neut # (Auto) 4.54 10^3/uL (1.8-7.7) 05/04/22 11:56 Lymph # (Auto) 3.1 10^3/uL (0.8-4.8) 05/04/22 11:56 [place] # (Auto) 1.3 10^3/uL (0.2-0.9) H 05/04/22 11:56 Eos # (Auto) 0.3 10^3/uL (0.0-0.8) 05/04/22 11:56 Baso # (Auto) 0.0 10^3/uL (0.0-0.1) 05/04/22 11:56 Nucleated RBC % (auto) 0 % 05/04/22 11:56 Nucleated RBCs # 0.0 /100WBC 05/04/22 11:56 Sodium 134 mmol/L (136-145) L 05/04/22 11:56 Potassium 4.0 mmol/L (3.5-5.1) 05/04/22 11:56 Chloride 100 mmol/L (98-107) 05/04/22 11:56 Carbon Dioxide 24 mmol/L (22-29) 05/04/22 11:56 Anion Gap 14.0 (5-19) 05/04/22 11:56 BUN 14 mg/dL (8-23) 05/04/22 11:56 Creatinine 0.9 mg/dL (0.7-1.2) 05/04/22 11:56 GFR Calculation Not Reportable 05/04/22 11:56 Glucose 94 mg/dL (65-115) 05/04/22 11:56 Calculated Osmolality 278 mOsm/kg (285-295) L 05/04/22 11:56 Calcium 9.4 mg/dL (8.5-10.5) 05/04/22 11:56 Total Bilirubin 1.1 mg/dL (0.15-1.2) 05/04/22 11:56 AST 28 U/L (0-40) 05/04/22 11:56 ALT 24 U/L (0-41) 05/04/22 11:56 Alkaline Phosphatase 102 U/L (40-130) 05/04/22 11:56 Total Protein 6.7 g/dL (6.6-8.7) 05/04/22 11:56 Albumin 3.9 g/dL (3.5-5.2) 05/04/22 11:56 Globulin 2.8 g/dL (1.3-4.6) 05/04/22 11:56 Other Data I personally reviewed and interpreted the following: Ultrasound complete FINDINGS: ?Normal 2-D Doppler and augmentation and compressibility ?throughout the lower extremity venous structures.? Additional ?imaging through the proximal calf veins also reveals no ?thrombus.? Limited evaluation of the greater saphenous vein is ?patent with no thrombus.. ?CONCLUSIONS ?No evidence of right lower extremity DVT. Discharge Plan Discharge Patient Disposition: Home Clinical Impression: Cellulitis, Peripheral neuropathy Condition: Stable Prescriptions: New cephalexin 500 mg capsule 500 mg PO Q6H 7 Days Qty: 28 0RF No Action diltiazem HCl 120 mg capsule,extended release 24 hr 120 mg PO DAILY dutasteride 0.5 mg capsule 0.5 mg PO DAILY fluticasone propionate 50 mcg/actuation spray,suspension 1 spray intranasal Q12H Rx Instructions: administer into each nostril gabapentin 100 mg capsule 300 mg PO BID montelukast 10 mg tablet 10 mg PO DAILY omeprazole 20 mg tablet,delayed release (DR/EC) 20 mg PO DAILY trazodone 50 mg tablet 50 mg PO BEDTIME warfarin 3 mg tablet See Rx Instructions .ROUTE .COMPLEX Rx Instructions: 3 mg orally daily Wed-Wed and 5mg on Sundays aspirin [Adult Low Dose Aspirin] 81 mg tablet,delayed release (DR/EC) 81 mg PO DAILY prednisone 50 mg tablet 50 mg PO DAILY Qty: 5 0RF multivitamin Tablet 1 tab PO DAILY vitamin A 2,400 mcg Capsule 2,400 mcg PO DAILY cetirizine 10 mg Tablet 10 mg PO BID potassium 99 mg Tablet 99 mg PO BEDTIME saw palmetto 160 mg Capsule 160 mg PO TID Rx Instructions: give with meal/snack Super B Complex Capsule 1 cap PO DAILY Vitamin D3 25 mcg (1,000 unit) Capsule 25 mcg PO DAILY coenzyme Q10 100 mg Capsule 100 mg PO DAILY Osteo Bi-Flex 250-200 mg Tablet 1 tab PO BID Rx Instructions: give after food/meal Acetyl L-Carnitine 250 mg Capsule 250 mg PO DAILY Romie Mag Zinc Plus D3 333 mg-133 unit -133 mg-5 mg Tablet 1 tab PO DAILY melatonin 10 mg Tablet 10 mg PO BEDTIME Combivent Respimat 20-100 mcg/actuation Mist 1 puff INHALATION BID Rx Instructions: space evenly during waking hours turmeric 400 mg Capsule 400 mg PO BID ashwagandha root extract 300 mg Capsule 300 mg PO DAILY Discharge Orders: Discharge ED (Routine); Ordered 05/04/22 Ordered By: Georgie Lawson Referrals: Shayla Mesa MD [Primary Care Provider] - Discharge Diet: Advance as tolerated Discharge Activity: Resume usual activity Patient Instructions: Opioid Safety, Pain Management Activity Restrictions/Additional Instructions: Ice and elevate when at rest. Take your antibiotics as prescribed Follow-up with your primary care doctor tomorrow. Call for an appointment Return to the emergency department for new, concerning, worsening symptoms Coding Level of Care Code ED Code Machine Operator for Ishan Kendall Exam Comprehensive
--- NOTE | 2022-05-04 16:05 | ED_ITS ---
HPI - Extremity Problem General: Chief complaint: Extremity Injury, Lower Stated complaint: right leg swelling with pain Time Seen by Provider: 05/04/22 08:49 [facility]LY [facility], [facility] ED PFSH: Medical History Hypertension Pacemaker Surgical History S/P cardiac pacemaker procedure S/P knee surgery S/P vasectomy Family History Mother Myocardial infarction Social History Smoking and tobacco status: former smoker Alcohol intake: never Course Vital Signs: Vital signs: Vital Signs Temperature 97.6 F 05/04/22 09:21 Pulse Rate 65 05/04/22 14:39 Respiratory Rate 16 05/04/22 14:39 Blood Pressure 133/78 05/04/22 14:39 Pulse Oximetry 93 05/04/22 14:39 Oxygen Delivery Me thod 05/04/22 09:21 MDM - Extremity (Nontraumatic) Lab Data 05/04/22 11:56 05/04/22 11:56 Laboratory Results WBC 9.3 10^3/uL (4.0-10.0) 05/04/22 11:56 RBC 4.18 10^6/uL (4.1-5.3) 05/04/22 11:56 Hgb 12.6 g/dL (11.7-16.6) 05/04/22 11:56 Hct 39.1 % (42.0-52.0) L 05/04/22 11:56 MCV 93.5 fl (80-94) 05/04/22 11:56 MCH 30.1 pg (28.0-34.0) 05/04/22 11:56 MCHC 32.2 g/dL (30.0-36.0) 05/04/22 11:56 RDW 14.7 % (12.1-15.1) 05/04/22 11:56 Plt Count 203 10^3/cmm (130-400) 05/04/22 11:56 MPV 9.1 fL (7.4-10.4) 05/04/22 11:56 Neut % (Auto) 49.1 % 05/04/22 11:56 Lymph % (Auto) 33.8 % 05/04/22 11:56 [place] % (Auto) 13.6 % 05/04/22 11:56 Eos % (Auto) 3.0 % 05/04/22 11:56 Baso % (Auto) 0.3 % 05/04/22 11:56 Neut # (Auto) 4.54 10^3/uL (1.8-7.7) 05/04/22 11:56 Lymph # (Auto) 3.1 10^3/uL (0.8-4.8) 05/04/22 11:56 [place] # (Auto) 1.3 10^3/uL (0.2-0.9) H 05/04/22 11:56 Eos # (Auto) 0.3 10^3/uL (0.0-0.8) 05/04/22 11:56 Baso # (Auto) 0.0 10^3/uL (0.0-0.1) 05/04/22 11:56 Nucleated RBC % (auto) 0 % 05/04/22 11:56 Nucleated RBCs # 0.0 /100WBC 05/04/22 11:56 Sodium 134 mmol/L (136-145) L 05/04/22 11:56 Potassium 4.0 mmol/L (3.5-5.1) 05/04/22 11:56 Chloride 100 mmol/L (98-107) 05/04/22 11:56 Carbon Dioxide 24 mmol/L (22-29) 05/04/22 11:56 Anion Gap 14.0 (5-19) 05/04/22 11:56 BUN 14 mg/dL (8-23) 05/04/22 11:56 Creatinine 0.9 mg/dL (0.7-1.2) 05/04/22 11:56 GFR Calculation Not Reportable 05/04/22 11:56 Glucose 94 mg/dL (65-115) 05/04/22 11:56 Calculated Osmolality 278 mOsm/kg (285-295) L 05/04/22 11:56 Calcium 9.4 mg/dL (8.5-10.5) 05/04/22 11:56 Total Bilirubin 1.1 mg/dL (0.15-1.2) 05/04/22 11:56 AST 28 U/L (0-40) 05/04/22 11:56 ALT 24 U/L (0-41) 05/04/22 11:56 Alkaline Phosphatase 102 U/L (40-130) 05/04/22 11:56 Total Protein 6.7 g/dL (6.6-8.7) 05/04/22 11:56 Albumin 3.9 g/dL (3.5-5.2) 05/04/22 11:56 Globulin 2.8 g/dL (1.3-4.6) 05/04/22 11:56 Discharge Plan Discharge Patient Disposition: Home Clinical Impression: Cellulitis, Peripheral neuropathy Condition: Stable Prescriptions: New cephalexin 500 mg capsule 500 mg PO Q6H 7 Days Qty: 28 0RF No Action diltiazem HCl 120 mg capsule,extended release 24 hr 120 mg PO DAILY dutasteride 0.5 mg capsule 0.5 mg PO DAILY fluticasone propionate 50 mcg/actuation spray,suspension 1 spray intranasal Q12H Rx Instructions: administer into each nostril gabapentin 100 mg capsule 300 mg PO BID montelukast 10 mg tablet 10 mg PO DAILY omeprazole 20 mg tablet,delayed release (DR/EC) 20 mg PO DAILY trazodone 50 mg tablet 50 mg PO BEDTIME warfarin 3 mg tablet See Rx Instructions .ROUTE .COMPLEX Rx Instructions: 3 mg orally daily Wed-Wed and 5mg on Sundays aspirin [Adult Low Dose Aspirin] 81 mg tablet,delayed release (DR/EC) 81 mg PO DAILY prednisone 50 mg tablet 50 mg PO DAILY Qty: 5 0RF multivitamin Tablet 1 tab PO DAILY vitamin A 2,400 mcg Capsule 2,400 mcg PO DAILY cetirizine 10 mg Tablet 10 mg PO BID potassium 99 mg Tablet 99 mg PO BEDTIME saw palmetto 160 mg Capsule 160 mg PO TID Rx Instructions: give with meal/snack Super B Complex Capsule 1 cap PO DAILY Vitamin D3 25 mcg (1,000 unit) Capsule 25 mcg PO DAILY coenzyme Q10 100 mg Capsule 100 mg PO DAILY Osteo Bi-Flex 250-200 mg Tablet 1 tab PO BID Rx Instructions: give after food/meal Acetyl L-Carnitine 250 mg Capsule 250 mg PO DAILY Romie Mag Zinc Plus D3 333 mg-133 unit -133 mg-5 mg Tablet 1 tab PO DAILY melatonin 10 mg Tablet 10 mg PO BEDTIME Combivent Respimat 20-100 mcg/actuation Mist 1 puff INHALATION BID Rx Instructions: space evenly during waking hours turmeric 400 mg Capsule 400 mg PO BID ashwagandha root extract 300 mg Capsule 300 mg PO DAILY Discharge Orders: Discharge ED (Routine); Ordered 05/04/22 Ordered By: Georgie Lawson Referrals: Shayla Mesa MD [Primary Care Provider] - Discharge Diet: Advance as tolerated Discharge Activity: Resume usual activity Patient Instructions: Opioid Safety, Pain Management Activity Restrictions/Additional Instructions: Ice and elevate when at rest. Take your antibiotics as prescribed Follow-up with your primary care doctor tomorrow. 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
== END 2022-05-04 14:40 | disposition home or self-care (01) ==
PROVIDERS: Emergency Provider Nurse Practitioner; PCP Family Medicine
DX: L03.115 Cellulitis of right lower limb (principal); G62.9 Polyneuropathy, unspecified; I10 Essential (primary) hypertension; Z95.0 Presence of cardiac pacemaker; Z87.891 Personal history of nicotine dependence; Z79.01 Long term (current) use of anticoagulants; Z79.82 Long term (current) use of aspirin
CPT/HCPCS: 80053; 85025; 93971; 96365; 99285; J0696

== ENCOUNTER 2022-06-01 06:45 | Emergency (ER) | payer OTHER, SELFPAY ==
--- NOTE | 2022-06-01 06:54 | W.ED.SKABFB ---
HPI - Skin/Abscess/Foreign Bdy General: Chief complaint: Skin/Abscess/Foreign Body Stated complaint: cellulitis Time Seen by Provider: 06/01/22 06:54 Source: patient Mode of arrival: ambulatory History of Present Illness: 85-year-old male presents emergency room with a rash to his lower extremities bilaterally more so on the right than the left. He states he has been through 2 courses of antibiotics that he previous note from May 04. He was here and had been given a dose of ceftriaxone and discharged home on cephalexin. The rashes persisted since then. He has not had any fever sweats or chills he has had another spot on his left scapula he states it itches a lot but he does not have any rash or open wounds there. MD complaint: rash Onset (ago): week(s) Location: LLE and RLE Severity: moderate Quality: pruritic Relieving factors: none Exacerbating factors: none Associated symptoms: Deny arthralgias, chills, cough, fever(s), itching, myalgias, nausea, rigidity, short of breath or vomiting Treatments prior to arrival: none Review of Systems Const: Denies: fever(s) or chills ENMT: Denies: throat pain, ear or mastoid pain, nasal discharge or nasal congestion Card: Denies: chest pain, edema, dyspnea on exertion or orthopnea Resp: Denies: dyspnea, productive cough or non-productive cough GI: Denies: nausea or vomiting : Denies: flank pain, dysuria, urinary frequency or urinary urgency Skin/Breast: Denies: rash or pruritus PFS ED PFSH: Medical History Hypertension Pacemaker Surgical History S/P cardiac pacemaker procedure S/P knee surgery S/P vasectomy Family History Mother Myocardial infarction Social History Smoking and tobacco status: former smoker Alcohol intake: never Physical Exam Const: COMMON NORMALS: no acute distress GENERAL APPEARANCE: cooperative and comfortable ORIENTATION/CONSCIOUSNESS: Yes awake, Yes oriented to person, Yes oriented to place and Yes oriented to time HENMT: COMMON NORMALS: normocephalic, atraumatic and hearing grossly normal bilaterally HEAD & SCALP: normocephalic and atraumatic Resp: COMMON NORMALS: normal respiratory effort, No retractions, No use of accessory muscles and clear to auscultation bilaterally AUSCULTATION: clear to auscultation bilaterally Cardio: COMMON NORMALS: regular rate, regular rhythm and No murmurs present (Cardio) RATE: regular rate RHYTHM: regular rhythm GI: COMMON NORMALS: Soft to palpation and No hepatosplenomegaly present AUSCULTATION: Yes normoactive bowel sounds PALPATION: Yes Soft to palpation, No Tenderness to palpation present (GI), No Guarding due to palpation present (GI) and Yes No hepatosplenomegaly present Extremity: COMMON NORMALS: normal to inspection, capillary refill normal, no clubbing, cyanosis or edema, no calf tenderness and no pedal edema Neuro: SENSORIUM/ORIENTATION: Yes oriented to person, Yes oriented to place and Yes oriented to time Skin: OTHER: Scaled raised areas on the lower extremities bilaterally with the right much greater than the left. There is circumferential nature. They do not involve the soles of the feet. There are no vesicles no active drainage no excoriation no localized erythema or redness. No induration of the skin. Course Vital Signs: Vital signs: Vital Signs Pulse Rate 89 06/01/22 07:18 Respiratory Rate 17 06/01/22 07:18 Blood Pressure 145/101 06/01/22 07:18 Pulse Oximetry 97 06/01/22 07:18 Oxygen Delivery Me thod 06/01/22 07:18 MDM - Skin/Abscess/Foreign Bdy Medicial Decision Making Patient has been through 2 rounds of antibiotics has been using topical betamethasone or triamcinolone various times and his symptoms still persist. There is nothing any history suggesting topical irritant at this time. He has no other rash consistent with dermatitis from clothing such as a soap or fabric softener product. It is limited to just the lower extremities. We will discharge patient home he can use topical Benadryl betamethasone twice daily that he prescribed previously follow-up with dermatology as previously scheduled. His white count CRP and sed rate are all normal. Medical Records I reviewed the patient's medical records. Lab Data I reviewed the patient's lab results. 06/01/22 07:44 06/01/22 07:44 Laboratory Results WBC 7.3 10^3/uL (4.0-10.0) 06/01/22 07:44 RBC 3.95 10^6/uL (4.1-5.3) L 06/01/22 07:44 Hgb 12.0 g/dL (11.7-16.6) 06/01/22 07:44 Hct 39.2 % (42.0-52.0) L 06/01/22 07:44 MCV 99.2 fl (80-94) H 06/01/22 07:44 MCH 30.4 pg (28.0-34.0) 06/01/22 07:44 MCHC 30.6 g/dL (30.0-36.0) 06/01/22 07:44 RDW 14.2 % (12.1-15.1) 06/01/22 07:44 Plt Count 180 10^3/cmm (130-400) 06/01/22 07:44 MPV 9.2 fL (7.4-10.4) 06/01/22 07:44 Neut % (Auto) 34.1 % 06/01/22 07:44 Lymph % (Auto) 43.9 % 06/01/22 07:44 [place] % (Auto) 10.6 % 06/01/22 07:44 Eos % (Auto) 10.4 % 06/01/22 07:44 Baso % (Auto) 0.7 % 06/01/22 07:44 Neut # (Auto) 2.50 10^3/uL (1.8-7.7) 06/01/22 07:44 Lymph # (Auto) 3.2 10^3/uL (0.8-4.8) 06/01/22 07:44 [place] # (Auto) 0.8 10^3/uL (0.2-0.9) 06/01/22 07:44 Eos # (Auto) 0.8 10^3/uL (0.0-0.8) 06/01/22 07:44 Baso # (Auto) 0.1 10^3/uL (0.0-0.1) 06/01/22 07:44 Nucleated RBC % (auto) 0 % 06/01/22 07:44 Nucleated RBCs # 0.0 /100WBC 06/01/22 07:44 ESR 3 mm/hr (0-10) 06/01/22 07:44 Sodium 133 mmol/L (136-145) L 06/01/22 07:44 Potassium 3.9 mmol/L (3.5-5.1) 06/01/22 07:44 Chloride 99 mmol/L (98-107) 06/01/22 07:44 Carbon Dioxide 24 mmol/L (22-29) 06/01/22 07:44 Anion Gap 13.9 (5-19) 06/01/22 07:44 BUN 16 mg/dL (8-23) 06/01/22 07:44 Creatinine 0.9 mg/dL (0.7-1.2) 06/01/22 07:44 GFR Calculation Not Reportable 06/01/22 07:44 Glucose 101 mg/dL (65-115) 06/01/22 07:44 Calculated Osmolality 277 mOsm/kg (285-295) L 06/01/22 07:44 Calcium 9.1 mg/dL (8.5-10.5) 06/01/22 07:44 Total Bilirubin 0.5 mg/dL (0.15-1.2) 06/01/22 07:44 AST 27 U/L (0-40) 06/01/22 07:44 ALT 20 U/L (0-41) 06/01/22 07:44 Alkaline Phosphatase 94 U/L (40-130) 06/01/22 07:44 C-Reactive Protein 3.0 mg/L (0.0-4.9) 06/01/22 07:44 Total Protein 6.3 g/dL (6.6-8.7) L 06/01/22 07:44 Albumin 4.0 g/dL (3.5-5.2) 06/01/22 07:44 Globulin 2.3 g/dL (1.3-4.6) 06/01/22 07:44 Discharge Plan Discharge Patient Disposition: Home Clinical Impression: Dermatitis Condition: Stable Prescriptions: No Action diltiazem HCl 120 mg capsule,extended release 24 hr 120 mg PO DAILY dutasteride 0.5 mg capsule 0.5 mg PO DAILY fluticasone propionate 50 mcg/actuation spray,suspension 1 spray intranasal Q12H Rx Instructions: administer into each nostril gabapentin 100 mg capsule 300 mg PO BID montelukast 10 mg tablet 10 mg PO DAILY omeprazole 20 mg tablet,delayed release (DR/EC) 20 mg PO DAILY trazodone 50 mg tablet 50 mg PO BEDTIME warfarin 3 mg tablet See Rx Instructions .ROUTE .COMPLEX Rx Instructions: 3 mg orally daily Wed-Wed and 5mg on Sundays aspirin [Adult Low Dose Aspirin] 81 mg tablet,delayed release (DR/EC) 81 mg PO DAILY prednisone 50 mg tablet 50 mg PO DAILY Qty: 5 0RF multivitamin Tablet 1 tab PO DAILY vitamin A 2,400 mcg Capsule 2,400 mcg PO DAILY cetirizine 10 mg Tablet 10 mg PO BID potassium 99 mg Tablet 99 mg PO BEDTIME saw palmetto 160 mg Capsule 160 mg PO TID Rx Instructions: give with meal/snack Super B Complex Capsule 1 cap PO DAILY Vitamin D3 25 mcg (1,000 unit) Capsule 25 mcg PO DAILY coenzyme Q10 100 mg Capsule 100 mg PO DAILY Osteo Bi-Flex 250-200 mg Tablet 1 tab PO BID Rx Instructions: give after food/meal Acetyl L-Carnitine 250 mg Capsule 250 mg PO DAILY Romie Mag Zinc Plus D3 333 mg-133 unit -133 mg-5 mg Tablet 1 tab PO DAILY melatonin 10 mg Tablet 10 mg PO BEDTIME Combivent Respimat 20-100 mcg/actuation Mist 1 puff INHALATION BID Rx Instructions: space evenly during waking hours turmeric 400 mg Capsule 400 mg PO BID ashwagandha root extract 300 mg Capsule 300 mg PO DAILY Discharge Orders: Discharge ED (Routine); Ordered 06/01/22 Ordered By: Kurt Shay Referrals: Shayla Mesa MD [Primary Care Provider] - Patient Instructions: Opioid Safety, Pain Management Activity Restrictions/Additional Instructions: Continue the betamethasone topically twice a day. You may also add topical Benadryl. 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
[2022-06-01 07:18] VITALS: BP 145/101; PULSE 89; RESP 17; O2SAT 97
[2022-06-01 08:31] LABS: Alanine Aminotransferase 20 U/L (0-41); Alkaline Phosphatase 94 U/L (40-130); Anion Gap 13.9 (5-19); Aspartate Amino Transferase 27 U/L (0-40); Blood Urea Nitrogen 16 mg/dL (8-23); Calcium 9.1 mg/dL (8.5-10.5); Carbon Dioxide 24 mmol/L (22-29); Chloride 99 mmol/L (98-107); Globulin 2.3 g/dL (1.3-4.6); Glucose 101 mg/dL (65-115); Osmolality Calculated 277 mOsm/kg (285-295); Potassium 3.9 mmol/L (3.5-5.1); Sodium 133 mmol/L (136-145); Total Bilirubin 0.5 mg/dL (0.15-1.2); Total Protein 6.3 g/dL (6.6-8.7)
[2022-06-01 08:32] LABS: Basophils # 0.1 10^3/uL (0.0-0.1); Basophils % 0.7 %; Eosinophils # 0.8 10^3/uL (0.0-0.8); Eosinophils % 10.4 %; Erythrocyte Sedimentation Rate 3 mm/hr (0-10); Hematocrit 39.2 % (42.0-52.0); Lymphocytes # 3.2 10^3/uL (0.8-4.8); Lymphocytes % 43.9 %; Mean Corpuscular HGB Conc 30.6 g/dL (30.0-36.0); Mean Corpuscular Hemoglobin 30.4 pg (28.0-34.0); Mean Corpuscular Volume 99.2 fl (80-94); Mean Platelet Volume 9.2 fL (7.4-10.4); Monocytes # 0.8 10^3/uL (0.2-0.9); Monocytes % 10.6 %; Neutrophils % 34.1 %; Nucleated Red Blood Cells % 0 %; Platelet Count 180 10^3/cmm (130-400); Red Blood Count 3.95 10^6/uL (4.1-5.3); Red Cell Distribution Width 14.2 % (12.1-15.1); White Blood Count 7.3 10^3/uL (4.0-10.0)
[2022-06-01 09:29] VITALS: BP 128/93; PULSE 68; RESP 16; O2SAT 97
== END 2022-06-01 09:30 | disposition home or self-care (01) ==
PROVIDERS: Emergency Provider Family Medicine; PCP Family Medicine
DX: L30.9 Dermatitis, unspecified (principal); Z79.01 Long term (current) use of anticoagulants; Z79.82 Long term (current) use of aspirin; I10 Essential (primary) hypertension; Z95.0 Presence of cardiac pacemaker; Z87.891 Personal history of nicotine dependence
CPT/HCPCS: 80053; 85025; 85651; 86140; 99283

== ENCOUNTER 2022-06-18 12:00 | Outpatient (CLI) | payer OTHER, SELFPAY ==
--- NOTE | 2022-06-18 12:00 | USCV_ITS ---
Eddy Miner Age: 86 Gender: M : 06/13/1936 Exam Date: 06/18/2022 12:32 Ordering Phys: Yani Angel DO Technologist: Joe Keating Exam Location: [facility]_ Indication: erythema, swelling, pain rt le PROCEDURES: Venous duplex imaging was performed in only the right lower extremity. The following venous structures were evaluated: common femoral vein, profunda vein, proximal portion of the greater saphenous vein, superficial femoral vein, and the popliteal vein. In addition, the posterior tibial and peroneal trunk were evaluated. Serial compression, augmentation maneuvers, and spectral Doppler flow evaluation were performed. FINDINGS: Normal 2-D Doppler and augmentation and compressibility throughout the lower extremity venous structures. Additional imaging through the proximal calf veins also reveals no thrombus. Limited evaluation of the greater saphenous vein is patent with no thrombus.. There appears to be a lymon node in the right groin. CONCLUSIONS No evidence of right lower extremity DVT. Prominent lymph node Right groin measuring 2.1 x 1.1 cm with normal fatty hilum likely reactive Kenneth Brunner MD (Electronically Signed) Final Date: 18 June 2022 18:06 S
== END 2022-06-18 12:01 | disposition home or self-care (01) ==
LOC: RAD 12:04
PROVIDERS: PCP Family Medicine; Visit Provider Dermatology
DX: M79.661 Pain in right lower leg (principal); R60.0 Localized edema; L53.9 Erythematous condition, unspecified; R59.0 Localized enlarged lymph nodes
CPT/HCPCS: 93971

== ENCOUNTER 2022-07-13 15:22 | Outpatient (CLI) | payer OTHER, SELFPAY ==
[2022-07-13] MEDS: iohexol 350 mg/mL 500 mL Btl (per mL) PO (16:21)
--- NOTE | 2022-07-13 17:00 | CT_ITS ---
WS: [id number] CT ABDOMEN AND PELVIS WITH AND WITHOUT CONTRAST HISTORY: right inguinal lymphadenopathy with LE edema TECHNIQUE: Unenhanced 5 mm axial imaging first performed through the abdomen. Post contrast imaging t hrough the abdomen and pelvis. Oral contrast has been provided. Sagittal and coronal reformats are s ubmitted. All CT scans at [facility] use at least one of these dose optimization techniques: automated exposure control; mA and/or kV adjustment per patient size (includes targeted exams where d ose is matched to clinical indication); or iterative reconstruction. CONTRAST: Omnipaque 350; 95 mL IV. DLP: 1757.42 mGy.cm COMPARISON: None available. Lung bases are clear. Mild cardiomegaly. Single lead wire in the RIGHT heart from the cardiac pacer. Small hiatal hernia. Normal liver. Normal portal vein. Normal gallbladder. Normal spleen. There is a small splenule adjace nt to the spleen. Fatty replacement of the pancreas. No pancreatic duct dilatation. No common bile du ct dilatation. Normal adrenal glands. Moderate atherosclerosis aorta with no aneurysm. Normal enhancement of the mesenteric arteries. Kidne ys are mildly atrophied. Cortical scarring bilaterally within each kidney. Calcification in the RIGHT kidney is vascular in etiology. Exophytic 1.0 cm cyst from the mid RIGHT kidney. Parapelvic cyst LEF T kidney. No ureteral obstruction. Normal distention of the stomach. No small bowel obstruction. Colon is markedly tortuous with overlap ping loops and moderate constipation. There is mild wall thickening involving the cecum. This is very nonspecific and very minimal. Early underlying neoplasm is not excluded. If colonoscopy has not been performed this should be obtained. There are no adjacent lymph nodes. No obstructive pattern. The ap pendix is normal. No significant diverticular disease. No mesenteric or retroperitoneal adenopathy is identified. There are a few scattered benign lymph nod es which maintain their fatty hilum. No iliac chain or inguinal lymph nodes of any significance. The largest lymph node is 16 mm along the RIGHT obturator region. Inguinal canals are patent bilaterally containing fat only. Prostate gland is heterogeneous and enlarged measuring 5.8 x 4.6 cm and extending over a length of 6. 7 cm encroaching into the bladder. No destructive bone lesions. CT/CT abdomen pelvis wo/w [id number] IMPRESSION: 1. No significant lymphadenopathy within the abdomen or pelvis. There are a fe w small benign-appearing lymph nodes. 2. Prostate gland enlargement with encroachment into the urinary bladder. [place] elate with biochemical evaluation. 3. Very minimal wall thickening involving the cecum. No adjacent adenopathy. C onsider follow-up colonoscopy to exclude early neoplasm. 4. Bilateral renal atrophy with cortical scarring. No renal obstruction. 5. Moderate atherosclerosis aorta. 6. Normal appendix.
[2022-07-13] MEDS: iohexol 350 mg/mL 500 mL Btl (per mL) IV (17:08)
== END 2022-07-13 15:23 | disposition home or self-care (01) ==
PROVIDERS: PCP Family Medicine; Visit Provider Dermatology
DX: R59.0 Localized enlarged lymph nodes (principal); R60.0 Localized edema; N26.1 Atrophy of kidney (terminal); N40.0 Benign prostatic hyperplasia without lower urinary tract symptoms
CPT/HCPCS: 74178; Q9967

== ENCOUNTER → 2022-08-26 10:07 | Outpatient (BNVA) | payer OTHER, SELFPAY | PROVIDERS: PCP Family Medicine; Visit Provider Dermatology | DX: L57.0 Actinic keratosis (principal); Z48.02 Encounter for removal of sutures | CPT/HCPCS: 17000; 17003; 99024; 99213 ==

== ENCOUNTER 2022-08-28 15:38 | Outpatient (CLI) | payer OTHER, SELFPAY ==
--- NOTE | 2022-08-28 15:55 | CT_ITS ---
WS: [id number] CT HEAD TECHNIQUE: Noncontrast and contrast-enhanced CT of the head. CLINICAL INFORMATION: DIZZINESS COMPARISON: None. DLP: 2234.[address] scans at [facility] use at least one of these dose optimization techniques: automated e xposure control; mA and/or kV adjustment per patient size (includes targeted exams where dose is matc hed to clinical indication); or iterative reconstruction. FINDINGS: No evidence of intracranial hemorrhage or mass effect. Ventricular system and basal cisterns are collazo nt. Moderate to advanced small vessel changes with moderate parenchymal volume loss. No extra-axial f luid collections. No evidence of mass or mass effect. No abnormal intracranial enhancement. Intracran ial vascular calcification. Tiny chronic lacunar infarct ventral thalamus. Small vessel changes in th e deng Mastoid air cells well aerated. LEFT maxillary sinusitis with air-fluid level. Mild mucosal thickenin g ethmoid air cells. Normal visualized dural venous sinuses. CT/CT head wo/w con [id number] IMPRESSION: 1. No evidence of intracranial hemorrhage or mass effect. 2. Moderate to advanced small vessel changes with moderate parenchymal volume loss. 3. No abnormal intracranial enhancement. 4. LEFT maxillary sinusitis.
[2022-08-28] MEDS: iohexol 350 mg/mL 500 mL Btl (per mL) IV (16:11)
== END 2022-08-28 15:39 | disposition home or self-care (01) ==
LOC: RAD 15:42
PROVIDERS: PCP Family Medicine; Visit Provider Family Medicine
DX: R42 Dizziness and giddiness (principal); J32.0 Chronic maxillary sinusitis
CPT/HCPCS: 70470; Q9967

== ENCOUNTER 2022-08-28 22:31 | Emergency (ER) | payer OTHER, SELFPAY ==
[2022-08-28 22:40] VITALS: BP 167/98; PULSE 80; RESP 16; TEMP 36.6; O2SAT 97
[2022-08-29] MEDS: famotidine 20 mg Tablet 40 MG PO (03:07)
[2022-08-29] MEDS: loratadine 10 mg Tablet PO (03:07)
[2022-08-29] MEDS: dexamethasone 10 mg/mL INJ IM (03:07)
[2022-08-29 03:17] VITALS: BP 128/72; PULSE 62; RESP 16; O2SAT 96
[2022-08-29 03:20] VITALS: BP 128/72; PULSE 62; RESP 16; TEMP 36.6; O2SAT 96
--- NOTE | 2022-08-29 03:38 | ED_ITS ---
HPI - Allergic Reaction General: Chief complaint: Allergic Reaction Stated complaint: amoxicllin allergy, rash Time Seen by Provider: 08/29/22 01:29 Source: patient Mode of arrival: ambulatory Limitations: no limitations History of Present Illness: HPI narrative: Patient presents emergency department today for evaluation treatment of concerns for allergic reaction to amoxicillin. Patient states he was seen by a walk-in clinic earlier today for concerns of sinus infection. He indicated he does not keep track of his allergies-he reports his keeps track of these things, so when they asked if he was allergic to anything he indicated he was not. Patient states he received amoxicillin and took a first dose this evening. He states after couple of hours he developed itching and bright red urticaria affecting the underside of his arms and his axillary region extending down on the lateral sides of his ribs. His hands also became red and itchy. He got some redness on his face with a couple of spots that developed. He had no lips, tongue, or throat swelling or any concerns with breathing but, indicated his throat does feel little scratchy. He mentioned the medication to his who reminded him he was allergic to amoxicillin. Review of Systems General: Reports: 10 or more systems reviewed and unremarkable except in HPI and below PFSH ED PFSH: Medical History History of nonmelanoma skin cancer Hypertension Lower extremity edema Pacemaker Pain in right lower leg Surgical History S/P cardiac pacemaker procedure S/P knee surgery S/P vasectomy Family History Mother Myocardial infarction Social History Smoking and tobacco status: former smoker Alcohol intake: never Substance/Drug Use: never Physical Exam Const: COMMON NORMALS: no acute distress, average body habitus and patient oriented x3 HENMT: COMMON NORMALS: normocephalic, atraumatic, hearing grossly normal bilaterally, Normal external nose present and moist oral mucous membranes HEAD & SCALP: normocephalic and atraumatic NOSE: Normal external nose present Eye: COMMON NORMALS: Equal, round and reactive pupils present, EOMs intact bilaterally and conjunctivae normal CONJUNCTIVA: Yes conjunctivae normal PUPIL: Yes Equal, round and reactive pupils present Neck/C-Spine: COMMON NORMALS: no JVD Lymph: LYMPHATIC: no lymphadenopathy noted Resp: COMMON NORMALS: normal respiratory effort, No retractions and No use of accessory muscles Cardio: COMMON NORMALS: no JVD, regular rate and regular rhythm RATE: regular rate RHYTHM: regular rhythm GI: COMMON NORMALS: Normal to inspection, nondistended, normoactive bowel sounds present : COMMON NORMALS: Yes no CVA tenderness BLADDER/KIDNEY EXAM: Yes no CVA tenderness Back/Pelvis: COMMON NORMALS: no CVA tenderness and thoraco-lumbar ROM normal Extremity: COMMON NORMALS: normal to inspection, full ROM and capillary refill normal Neuro: COMMON NORMALS: patient oriented x3 Psych: COMMON NORMALS: mental status grossly normal, Normal thought process present, cooperative, normal affect and activity/motor behavior normal THOUGHT PROCESS: Normal thought process present Skin: NARRATIVE SKIN EXAM: Patient does have some mild erythema noted to the dorsum of the hands bilaterally. No signs of angioedema. No signs of facial swelling or urticaria on the face. Course Vital Signs: Vital signs: Vital Signs Temperature 97.9 F 08/29/22 03:20 Pulse Rate 62 08/29/22 03:20 Respiratory Rate 16 08/29/22 03:20 Blood Pressure 128/72 08/29/22 03:20 Pulse Oximetry 96 08/29/22 03:20 Oxygen Delivery Me thod Room Air 08/29/22 03:17 MDM - Allergic Reaction Medical Decision Making Patient presents to the emergency department today after taking amoxicillin with known amoxicillin allergy. Patient shows no signs of angioedema but, is complaining of scratchy throat. Patient was treated here in the emergency department with steroid, antihistamine, and H2 raquel. Continue treatment prescribed to him on his behalf for the next couple of days as we discussed the potential for rebound reaction. Since patient is being treated for sinus infection and has only taken 1 dose of his antibiotic, I did switch him over to doxycycline and instructed him to stop taking the amoxicillin. He was given strict return precautions for signs of angioedema. Patient verbalized understanding and agreement to treatment plan. Differential Diagnosis Likely anaphylaxis, allergic reaction, angioedema, contact dermatitis, adverse reaction to drug, viral enanthem and urticaria Discharge Plan Discharge Patient Disposition: Home Clinical Impression: Allergic reaction, Adverse reaction to drug Condition: Stable Prescriptions: New loratadine 10 mg tablet 10 mg PO DAILY 5 Days Qty: 5 0RF prednisone 20 mg tablet 20 mg PO BID 3 Days Qty: 6 0RF Pepcid 20 mg tablet 20 mg PO BID 3 Days Qty: 6 0RF doxycycline hyclate 100 mg tablet 100 mg PO BID 10 Days Qty: 20 0RF No Action diltiazem HCl 120 mg capsule,extended release 24 hr 120 mg PO DAILY dutasteride 0.5 mg capsule 0.5 mg PO DAILY fluticasone propionate 50 mcg/actuation spray,suspension 1 spray intranasal Q12H Rx Instructions: administer into each nostril gabapentin 100 mg capsule 300 mg PO BID montelukast 10 mg tablet 10 mg PO DAILY omeprazole 20 mg tablet,delayed release (DR/EC) 20 mg PO DAILY trazodone 50 mg tablet 50 mg PO BEDTIME warfarin 3 mg tablet See Rx Instructions .ROUTE .COMPLEX Rx Instructions: 3 mg orally daily Wed-Wed and 5mg on Sundays mupirocin 2 % ointment 1 applic topical BID Qty: 22 2RF Rx Instructions: Apply to affected area(s) until healed. All Day Allergy (cetirizine) 10 mg capsule 10 mg PO DAILY PRN clobetasol 0.05 % ointment 1 applic topical BID 14 Days Qty: 60 2RF Rx Instructions: Apply to affected areas no more then two weeks/mo prn alternating with triamcinolone aspirin [Adult Low Dose Aspirin] 81 mg tablet,delayed release (DR/EC) 81 mg PO DAILY clobetasol 0.05 % ointment 1 applic topical BID 14 Days Qty: 45 1RF Rx Instructions: Apply to affected area no more than two weeks per month. Not for face or skin folds. multivitamin Tablet 1 tab PO DAILY vitamin A 2,400 mcg Capsule 2,400 mcg PO DAILY cetirizine 10 mg Tablet 10 mg PO BID potassium 99 mg Tablet 99 mg PO BEDTIME saw palmetto 160 mg Capsule 160 mg PO TID Rx Instructions: give with meal/snack Super B Complex Capsule 1 cap PO DAILY Vitamin D3 25 mcg (1,000 unit) Capsule 25 mcg PO DAILY coenzyme Q10 100 mg Capsule 100 mg PO DAILY Osteo Bi-Flex 250-200 mg Tablet 1 tab PO BID Rx Instructions: give after food/meal Acetyl L-Carnitine 250 mg Capsule 250 mg PO DAILY Romie Mag Zinc Plus D3 333 mg-133 unit -133 mg-5 mg Tablet 1 tab PO DAILY melatonin 10 mg Tablet 10 mg PO BEDTIME Combivent Respimat 20-100 mcg/actuation Mist 1 puff INHALATION BID Rx Instructions: space evenly during waking hours turmeric 400 mg Capsule 400 mg PO BID ashwagandha root extract 300 mg Capsule 300 mg PO DAILY Discharge Orders: Discharge ED (Routine); Ordered 08/29/22 Ordered By: Alida Ortega Referrals: Shayla Mesa MD [Primary Care Provider] - Discharge Diet: Usual diet Discharge Activity: Increase activity as tolerated Patient Instructions: Antibiotic Medication Allergy (ED) Activity Restrictions/Additional Instructions: We are treating you for an allergic reaction to amoxicillin. Unfortunately, the medication can linger in your system for a couple of days. Do not take any more amoxicillin. I have switched your antibiotic over to doxycycline which will help treat sinus infection. I have given you some medication for the next few days to help combat allergic reactions and, you can still take Benadryl at home. Be sure you are increasing your clear fluids and watch for any swelling of your mouth, lip, tongue, throat, or any difficulty breathing. If these occur or, you have recurrence of body rash you should be seen and reevaluated again. Coding Level of Care Code ED Public Records Researcher for Ishan Kendall
== END 2022-08-29 03:21 | disposition home or self-care (01) ==
PROVIDERS: Emergency Provider Physician Assistant; PCP Family Medicine
DX: T88.7XXA Unspecified adverse effect of drug or medicament, initial encounter (principal); T36.0X5A Adverse effect of penicillins, initial encounter; Z79.01 Long term (current) use of anticoagulants; Z79.82 Long term (current) use of aspirin; I10 Essential (primary) hypertension; Z95.0 Presence of cardiac pacemaker; Z87.891 Personal history of nicotine dependence; X58.XXXA Exposure to other specified factors, initial encounter
CPT/HCPCS: 96372; 99284; J1100

== ENCOUNTER → 2022-09-01 09:47 | Outpatient (BNVA) | payer OTHER, SELFPAY | PROVIDERS: PCP Family Medicine; Visit Provider Specialist | DX: I48.91 Unspecified atrial fibrillation (principal); Z95.0 Presence of cardiac pacemaker; I10 Essential (primary) hypertension; Z79.01 Long term (current) use of anticoagulants; Z87.891 Personal history of nicotine dependence; Z79.82 Long term (current) use of aspirin | CPT/HCPCS: 99214 ==

== ENCOUNTER → 2022-10-16 09:49 | Outpatient (BNVA) | payer OTHER, SELFPAY | PROVIDERS: PCP Family Medicine; Visit Provider Nurse Practitioner Family | DX: L72.0 Epidermal cyst (principal); L81.4 Other melanin hyperpigmentation; Z09 Encounter for follow-up examination after completed treatment for conditions other than malignant neoplasm; Z85.828 Personal history of other malignant neoplasm of skin; Z87.891 Personal history of nicotine dependence | CPT/HCPCS: 99213 ==

== ENCOUNTER → 2022-11-17 13:35 | Outpatient (BNVA) | payer OTHER, SELFPAY | PROVIDERS: PCP Family Medicine; Visit Provider Dermatology | DX: L57.0 Actinic keratosis (principal); L40.4 Guttate psoriasis; L72.0 Epidermal cyst; L81.4 Other melanin hyperpigmentation; D69.2 Other nonthrombocytopenic purpura; Z85.828 Personal history of other malignant neoplasm of skin; Z87.891 Personal history of nicotine dependence; L81.0 Postinflammatory hyperpigmentation | CPT/HCPCS: 17000; 17003; 99214 ==

== ENCOUNTER → 2022-11-23 10:22 | Outpatient (BNVA) | payer OTHER, SELFPAY | PROVIDERS: PCP Family Medicine; Visit Provider Podiatrist Foot & Ankle Surgery | DX: M21.611 Bunion of right foot (principal) | CPT/HCPCS: 73630; 99204 ==

== ENCOUNTER → 2022-12-28 15:28 | Outpatient (BNVA) | payer OTHER, SELFPAY | PROVIDERS: PCP Family Medicine; Visit Provider Internal Medicine Cardiovascular Disease | DX: R07.9 Chest pain, unspecified (principal); Z95.0 Presence of cardiac pacemaker | CPT/HCPCS: 93005; 99214 ==

== ENCOUNTER 2023-01-03 14:42 | Emergency (ER) | payer OTHER, SELFPAY ==
[2023-01-03 14:44] VITALS: BP 134/81; PULSE 77; RESP 18; TEMP 36.3; O2SAT 96; BMI 29.2
--- NOTE | 2023-01-03 15:52 | XRR_ITS ---
PROCEDURE INFORMATION: Exam: XR Soft Tissue Neck Exam date and time: 01/03/2023 4:19 PM Age: 86 years old Clinical indication: Dysphagia / difficulty swallowing TECHNIQUE: Imaging protocol: Radiologic exam of the soft tissues of the neck. COMPARISON: CT angio headneck* [id number] 01/24/2022 11:14 AM FINDINGS: Tubes, catheters and devices: Left chest pacemaker. Airway: Normal. No abnormal narrowing. Soft tissues: Normal. Normal epiglottis. Bones/joints: Degenerative disc disease of the cervical spine. No acute osseous injury visible. XR/XR soft tissue neck [id number] IMPRESSION: No acute findings.
--- NOTE | 2023-01-03 15:52 | XRR_ITS ---
PROCEDURE INFORMATION: Exam: XR Chest Exam date and time: 01/03/2023 4:06 PM Age: 86 years old Clinical indication: Cough and dyspnea; Additional info: Dyspnea/cough TECHNIQUE: Imaging protocol: Radiologic exam of the chest. Views: 1 view. COMPARISON: CR XR chest 2V* [id number] 11/05/2017 10:25 AM FINDINGS: Tubes, catheters and devices: Left chest pacemaker is unchanged. Lungs: Unremarkable. No consolidation. Pleural spaces: Unremarkable. No pleural effusion. No pneumothorax. Heart/Mediastinum: Stable heart size. Bones/joints: Stable bones. XR/XR chest 1V portable [id number] IMPRESSION: No acute findings.
--- NOTE | 2023-01-03 16:27 | ED_ITS ---
HPI - General Adult General: Chief complaint: Upper Respiratory Infection Stated complaint: cough, congestion Time Seen by Provider: 01/03/23 15:47 Source: patient Mode of arrival: ambulatory History of Present Illness: 86-year-old male who presents emergency room with complaints of difficulty swallowing. Yesterday he tried to swallow a vitamin tablet of some sort and felt like he got stuck in his throat he was eventually able to cough it up the fragment that he did cough up it seemed to be partially dissolved and there was a missing portion of the pill. He states since then he has been a little raspy and has a slight cough no hemoptysis no fever sweats or chills he is able to drink and eat without difficulty. Onset (ago): hour(s) Relieving factors: none Exacerbating factors: none Associated symptoms: Reports cough; Deny chest pain, confusion, diaphoresis, decreased appetite, dyspnea, fevers/chi lls, headache(s), malaise, nausea, rash, palpitations, seizures, short of breath, syncope, vomiting or weakness Treatments prior to arrival: none Review of Systems Const: Denies: malaise or diaphoresis ENMT: Denies: throat pain, ear or mastoid pain, nasal discharge or nasal congestion Card: Denies: chest pain, palpitations or syncope Resp: Denies: dyspnea GI: Denies: nausea or vomiting : Denies: flank pain, dysuria, urinary frequency or urinary urgency Skin/Breast: Denies: rash Neuro: Denies: headache(s) or confusion PFSH ED PFSH: Medical History History of nonmelanoma skin cancer Hypertension Lower extremity edema Pacemaker Pain in right lower leg Surgical History S/P cardiac pacemaker procedure S/P knee surgery S/P vasectomy Family History Mother Myocardial infarction Social History Smoking and tobacco status: former smoker Alcohol intake: never Substance/Drug Use: never Physical Exam Const: GENERAL APPEARANCE: cooperative and comfortable ORIENTATION/CONSCIOUSNESS: Yes awake, Yes oriented to person, Yes oriented to place and Yes oriented to time HENMT: COMMON NORMALS: normocephalic, atraumatic and hearing grossly normal bilaterally HEAD & SCALP: normocephalic and atraumatic Resp: COMMON NORMALS: normal respiratory effort, No retractions, No use of accessory muscles and clear to auscultation bilaterally AUSCULTATION: clear to auscultation bilaterally Cardio: COMMON NORMALS: regular rate, regular rhythm and No murmurs present (Cardio) RATE: regular rate RHYTHM: regular rhythm GI: COMMON NORMALS: Soft to palpation and No hepatosplenomegaly present AUSCULTATION: Yes normoactive bowel sounds PALPATION: Yes Soft to palpation, No Tenderness to palpation present (GI), No Guarding due to palpation present (GI) and Yes No hepatosplenomegaly present Extremity: COMMON NORMALS: normal to inspection, capillary refill normal, no clubbing, cyanosis or edema, no calf tenderness and no pedal edema Neuro: SENSORIUM/ORIENTATION: Yes oriented to person, Yes oriented to place and Yes oriented to time Skin: COMMON NORMALS: no rashes or lesions noted GENERAL SKIN EXAM: no rashes or lesions noted Course Vital Signs: Vital signs: Vital Signs Temperature 97.4 F L 01/03/23 14:44 Pulse Rate 77 01/03/23 14:44 Respiratory Rate 18 01/03/23 14:44 Blood Pressure 134/81 01/03/23 14:44 Pulse Oximetry 96 01/03/23 14:44 Oxygen Delivery Me thod Room Air 01/03/23 14:44 MDM - General Adult Medical Decision Making X-rays are unremarkable exam unremarkable. There is no stridor he has no cough at this time he is able to demonstrate swallowing without any difficulty at the bedside. Offered him referral to ENT or if it is felt appropriate they can do nasopharyngoscopy he prefers not to do anything at this point. He stated he will follow-up with his primary care doctor if he has any further problems or does not improve. Advised patient to return at any time be reevaluated emergency room if he has further difficulty. Medical Records I reviewed the patient's medical records. Lab Data Radiology Impressions Chest X-Ray 01/03/23 15:52 IMPRESSION: No acute findings. Soft Tissue Neck X-Ray 01/03/23 15:52 IMPRESSION: No acute findings. Discharge Plan Discharge Patient Disposition: Home Clinical Impression: Globus sensation Condition: Stable Prescriptions: No Action dutasteride 0.5 mg capsule 0.5 mg PO DAILY gabapentin 100 mg capsule 300 mg PO BID montelukast 10 mg tablet 10 mg PO DAILY omeprazole 20 mg tablet,delayed release (DR/EC) 20 mg PO DAILY trazodone 50 mg tablet 50 mg PO BEDTIME warfarin 3 mg tablet See Rx Instructions .ROUTE .COMPLEX Rx Instructions: 3 mg orally daily and 5mg on Sundays fluticasone propionate 50 mcg/actuation spray,suspension 1 spray intranasal Q12H PRN Rx Instructions: administer into each nostril mupirocin 2 % ointment 1 applic topical BID Qty: 22 2RF Rx Instructions: Apply to affected area(s) until healed. loratadine 10 mg tablet 10 mg PO DAILY PRN albuterol sulfate [ProAir HFA] 90 mcg/actuation HFA aerosol inhaler 2 puff inhalation Q6H PRN metoprolol tartrate 25 mg tablet 25 mg PO BID Qty: 180 3RF aspirin [Adult Low Dose Aspirin] 81 mg tablet,delayed release (DR/EC) 81 mg PO DAILY (DME) Custom Molded Copolymer Orthotics and Orthopedic Shoes See Rx Instructions .Route .MEDSUPPLY Qty: 1 0RF Rx Instructions: As directed The [employer] multivitamin Tablet 1 tab PO DAILY vitamin A 2,400 mcg Capsule 2,400 mcg PO DAILY potassium 99 mg Tablet 99 mg PO BEDTIME saw palmetto 160 mg Capsule 160 mg PO TID Rx Instructions: give with meal/snack Super B Complex Capsule 1 cap PO DAILY Vitamin D3 25 mcg (1,000 unit) Capsule 25 mcg PO DAILY coenzyme Q10 100 mg Capsule 100 mg PO DAILY Osteo Bi-Flex 250-200 mg Tablet 1 tab PO BID Rx Instructions: give after food/meal Acetyl L-Carnitine 250 mg Capsule 250 mg PO DAILY Romie Mag Zinc Plus D3 333 mg-133 unit -133 mg-5 mg Tablet 1 tab PO DAILY turmeric 400 mg Capsule 400 mg PO BID ashwagandha root extract 300 mg Capsule 300 mg PO DAILY Discharge Orders: Discharge ED (Routine); Ordered 01/03/23 Ordered By: Kurt Shay Referrals: Shayla Mesa MD [Primary Care Provider] - Discharge Diet: Usual diet Discharge Activity: Resume usual activity Patient Instructions: Opioid Safety, Pain Management Activity Restrictions/Additional Instructions: Case management make arrangements for follow-up with ENT Coding Level of Care Code ED Hot Metal Charger for Ishan Kendall
== END 2023-01-03 16:46 | disposition home or self-care (01) ==
PROVIDERS: Emergency Provider Family Medicine; PCP Family Medicine
DX: F45.8 Other somatoform disorders (principal); Z79.82 Long term (current) use of aspirin; Z79.01 Long term (current) use of anticoagulants; I10 Essential (primary) hypertension; Z95.0 Presence of cardiac pacemaker; Z87.891 Personal history of nicotine dependence
CPT/HCPCS: 70360; 71045; 99283

== ENCOUNTER → 2023-01-05 15:21 | Outpatient (BNVA) | payer OTHER, MEDICARE, SELFPAY | PROVIDERS: PCP Family Medicine; Visit Provider Internal Medicine Cardiovascular Disease | DX: Z45.010 Encounter for checking and testing of cardiac pacemaker pulse generator [battery] (principal) | CPT/HCPCS: 93296 ==

== ENCOUNTER 2023-01-14 08:41 | Outpatient (CLI) | payer OTHER, MEDICARE, SELFPAY ==
[2023-01-14 09:27] VITALS: BMI 28.0
--- NOTE | 2023-01-14 09:33 | ECG_ITS ---
[facility] Test Date: 2023-01-14 Pat Name: Eddy Miner Department: Room: Gender: Male Director Of Social Media Marketing: : 1936-06-13 Requested By: Qian Bundy Order Number: [id number] Demarco MD: Qian Bundy M.D. Interpretive Statements NAME OF STUDY: LEXISCAN SESTAMIBI STRESS TEST INDICATION: Chest Pain; Shortness of Breath PROCEDURE: At the baseline, the blood pressure was 149/85 mmHg, oxygen saturation 96% with a heart rate of 61 beats per min. The electrocardiogram showed a sensed V paced rhythm. The Lexiscan was infused over a period of 20 seconds. A total of 0.4 milligrams of Lexiscan was infused. The stress phase was continued for a total of 5 minutes. Heart rate at the end of the stress phase was 61 bpm, oxygen saturation 97% with a blood pressure 111/64 mm. The EKG at the peak infusion revealed no significant ST-T wave change. Sestamibi was injected 20 seconds after the Lexiscan infusion. Blood pressure at the end of the recovery phase was 119/71 mmHg, oxygen saturation 96% with a heart rate of 61 beats per minute. CONCLUSION: 1. Non Diagnostic EKG changes with the LexiScan infusion to baseline V paced rhythm. 2. No LexiScan induced chest pain or cardiac arrhythmia. 3. Normal blood pressure and heart rate response. 4. Sestamibi/sestamibi perfusion scan pending; see separate report. Electronically Signed On 01-19-2023 12:43:28 CDT by Qian Bundy M.D. [email or web address]
--- NOTE | 2023-01-14 09:34 | NMCV_ITS ---
NM james perf SPECT r/s* [id number] Eddy Miner Age: 86 Gender: M : 06/13/1936 Exam Date: 01/14/2023 09:34 Ordering Phys: Qian Bundy MD ([email or web address]) Technologist: LILIA Knight Exam Location: [facility] Indications: CHEST PAIN STRESS TEST Please see separate stress test report in [facility] for full findings IMAGE PROTOCOL Rest/Stress 1 Lexiscan Day Radiopharmaceutical Dose (mCi) Administration Site Administered by Rest: Tc-99m 10.5 IV LILIA Johnson Sestamibi Stress:Tc-99m 32.6 IV LILIA Johnson Sestamibi Rest: 14-Jan-2023 60 Discovery 630 Stress: 14-Jan-2023 30 Discovery 630 0.4mg Lexiscan. Images obtained in supine and prone position. SPECT RESULTS Technical Quality: Excellent Raw Data Analysis: Normal Image Corrections: No attenuation or motion correction applied Summed Stress Score: 0 Summed Rest Score: 0 Summed Difference Score: 0 PERFUSION FINDINGS SPECT images demonstrate homogeneous tracer distribution throughout the myocardium. FUNCTIONAL RESULTS (calculated via Gated SPECT) Stress Image LV EF (%): 79 Stress EDV (mL):92 TID: 1.16 Stress ESV (mL):19 FUNCTIONAL FINDINGS: The left ventricle is normal in size. Transient Ischemia Dilatation of 1.16. The left ventricular ejection fraction is normal with a value of 79%. There is normal left ventricular wall thickening. Normal end diastolic and end systolic volumes. IMPRESSIONS 1. Myocardial perfusion imaging is normal. 2. Overall left ventricular systolic function is normal without regional wall motion abnormalities, LVEF=79%. 3. EKG portion of the study will be reported separately. 4. Scan indicates low risk for cardiac events. Qian Bundy MD (Electronically Signed) Final Date: 19 January 2023 09:03 S
[2023-01-14] MEDS: regadenoson 0.4 Mg/5 ml Syringe IVP (10:24)
[2023-01-14 10:43] VITALS: BP 119/71; PULSE 61
== END 2023-01-14 08:42 | disposition home or self-care (01) ==
LOC: CDL 08:42
PROVIDERS: PCP Family Medicine; Visit Provider Internal Medicine Cardiovascular Disease
DX: R07.9 Chest pain, unspecified (principal); R06.02 Shortness of breath
CPT/HCPCS: 36415; 78452; 93017; 96374; A9500; J2785

== ENCOUNTER 2023-02-28 08:08 | Emergency (ER) | payer OTHER, SELFPAY ==
[2023-02-28 08:13] VITALS: BP 159/94; PULSE 65; RESP 18; TEMP 36.8; O2SAT 99; BMI 28.0
--- NOTE | 2023-02-28 08:19 | ED_ITS ---
HPI - Skin/Abscess/Foreign Bdy General: Chief complaint: Skin/Abscess/Foreign Body Stated complaint: rash on right foot Time Seen by Provider: 02/28/23 08:11 Source: patient Mode of arrival: ambulatory History of Present Illness: 86-year-old male presents emergency room complaining of a rash that he noticed this morning on his right foot. It is pruritic mildly erythematous. He has a history of shingles he is concerned there is a recurrence of his shingles. No fever sweats or chills. MD complaint: rash Onset (ago): hour(s) Location: R foot Severity: mild Quality: pruritic Relieving factors: none Exacerbating factors: none Associated symptoms: Deny arthralgias, chills, cough, fever(s), itching, myalgias, rigidity or short of breath Treatments prior to arrival: none Review of Systems Const: Denies: fever(s) or chills Skin/Breast: Reports: rash and pruritus PFS ED PFSH: Medical History History of nonmelanoma skin cancer Hypertension Lower extremity edema Pacemaker Pain in right lower leg Surgical History S/P cardiac pacemaker procedure S/P knee surgery S/P vasectomy Family History Mother Myocardial infarction Social History Smoking and tobacco/nicotine status: former use of tobacco/nicotine Alcohol intake: never Substance/Drug Use: never Physical Exam Const: COMMON NORMALS: no acute distress GENERAL APPEARANCE: cooperative and comfortable ORIENTATION/CONSCIOUSNESS: Yes awake, Yes oriented to person, Yes oriented to place and Yes oriented to time HENMT: COMMON NORMALS: normocephalic, atraumatic and hearing grossly normal bilaterally HEAD & SCALP: normocephalic and atraumatic Resp: COMMON NORMALS: normal respiratory effort, No retractions and No use of accessory muscles Extremity: COMMON NORMALS: normal to inspection, capillary refill normal, no clubbing, cyanosis or edema, no calf tenderness and no pedal edema Neuro: SENSORIUM/ORIENTATION: Yes oriented to person, Yes oriented to place and Yes oriented to time Skin: COMMON NORMALS: no rashes or lesions noted NARRATIVE SKIN EXAM: Very mildly reddened area with no induration or thickening of the skin on the dorsum of the right foot is irregular pattern extending over the 1st-4th metatarsals and somewhat up to the ankle there is no lymphangitic spread. Small reddened area at the apex of the medial arch but does not seem to be the Nexis of the rash. There is no skin breakdown or ulceration no significant excoriation or abrasion no sign of infection. No vesicles. Slight scaling. GENERAL SKIN EXAM: no rashes or lesions noted Course 2 Vital Signs: Vital signs: Vital Signs Temperature 98.3 F 02/28/23 08:13 Pulse Rate 65 02/28/23 08:13 Respiratory Rate 18 02/28/23 08:13 Blood Pressure 159/94 02/28/23 08:13 Pulse Oximetry 99 02/28/23 08:13 MDM - Skin/Abscess/Foreign Bdy Medicial Decision Making Topical triamcinolone twice daily follow-up with primary care if has any worsening change symptoms. Medical Records I reviewed the patient's medical records. All radiology interpretation(s) finalized by discharge Discharge Plan Discharge Patient Disposition: Home Clinical Impression: Dermatitis, Peripheral neuropathy Condition: Stable Prescriptions: New triamcinolone acetonide 0.5 % cream 1 applic topical BID Qty: 15 0RF No Action dutasteride 0.5 mg capsule 0.5 mg PO DAILY gabapentin 100 mg capsule 300 mg PO BID montelukast 10 mg tablet 10 mg PO DAILY omeprazole 20 mg tablet,delayed release (DR/EC) 20 mg PO DAILY trazodone 50 mg tablet 50 mg PO BEDTIME warfarin 3 mg tablet See Rx Instructions .ROUTE .COMPLEX Rx Instructions: 3 mg orally daily Wed-Wed and 5mg on Sundays fluticasone propionate 50 mcg/actuation spray,suspension 1 spray intranasal Q12H PRN Rx Instructions: administer into each nostril mupirocin 2 % ointment 1 applic topical BID Qty: 22 2RF Rx Instructions: Apply to affected area(s) until healed. loratadine 10 mg tablet 10 mg PO DAILY PRN albuterol sulfate [ProAir HFA] 90 mcg/actuation HFA aerosol inhaler 2 puff inhalation Q6H PRN metoprolol tartrate 25 mg tablet 25 mg PO BID Qty: 180 3RF aspirin [Adult Low Dose Aspirin] 81 mg tablet,delayed release (DR/EC) 81 mg PO DAILY (DME) Custom Molded Copolymer Orthotics and Orthopedic Shoes See Rx Instructions .Route .MEDSUPPLY Qty: 1 0RF Rx Instructions: As directed The Justino Mckeon multivitamin Tablet 1 tab PO DAILY vitamin A 2,400 mcg Capsule 2,400 mcg PO DAILY potassium 99 mg Tablet 99 mg PO BEDTIME saw palmetto 160 mg Capsule 160 mg PO TID Rx Instructions: give with meal/snack Super B Complex Capsule 1 cap PO DAILY Vitamin D3 25 mcg (1,000 unit) Capsule 25 mcg PO DAILY coenzyme Q10 100 mg Capsule 100 mg PO DAILY Osteo Bi-Flex 250-200 mg Tablet 1 tab PO BID Rx Instructions: give after food/meal Acetyl L-Carnitine 250 mg Capsule 250 mg PO DAILY Romie Mag Zinc Plus D3 333 mg-133 unit -133 mg-5 mg Tablet 1 tab PO DAILY turmeric 400 mg Capsule 400 mg PO BID ashwagandha root extract 300 mg Capsule 300 mg PO DAILY Discharge Orders: Discharge ED (Routine); Ordered 02/28/23 Ordered By: Kurt Shay Referrals: Shayla Mesa MD [Primary Care Provider] - Discharge Diet: Usual diet Discharge Activity: Resume usual activity Patient Instructions: Dermatitis (ED), Opioid Safety, Pain Management Activity Restrictions/Additional Instructions: If rash does not improve or worsens follow-up with your primary care doctor for further evaluation. Coding Level of Care Code ED Content Administrator for Ishan Kendall
== END 2023-02-28 08:25 | disposition home or self-care (01) ==
PROVIDERS: Emergency Provider Family Medicine; PCP Family Medicine
DX: L30.9 Dermatitis, unspecified (principal); G62.9 Polyneuropathy, unspecified; Z79.01 Long term (current) use of anticoagulants; Z79.82 Long term (current) use of aspirin; I10 Essential (primary) hypertension; Z95.0 Presence of cardiac pacemaker; Z87.891 Personal history of nicotine dependence
CPT/HCPCS: 99283

== ENCOUNTER → 2023-03-01 13:03 | Outpatient (BNVA) | payer OTHER, SELFPAY | PROVIDERS: PCP Family Medicine; Visit Provider Dermatology | DX: L23.89 Allergic contact dermatitis due to other agents (principal); L72.0 Epidermal cyst; L72.11 Pilar cyst; L81.7 Pigmented purpuric dermatosis | CPT/HCPCS: 99214 ==

== ENCOUNTER → 2023-03-02 10:44 | Outpatient (BNVA) | payer OTHER, SELFPAY | PROVIDERS: PCP Family Medicine; Visit Provider Internal Medicine Cardiovascular Disease | DX: R42 Dizziness and giddiness (principal); I10 Essential (primary) hypertension; Z95.0 Presence of cardiac pacemaker; G62.9 Polyneuropathy, unspecified; Z87.891 Personal history of nicotine dependence | CPT/HCPCS: 99214 ==

== ENCOUNTER → 2023-03-15 13:06 | Outpatient (BNVA) | payer OTHER, SELFPAY | PROVIDERS: PCP Family Medicine; Visit Provider Nurse Practitioner Family | DX: L82.0 Inflamed seborrheic keratosis (principal); L85.3 Xerosis cutis; L57.0 Actinic keratosis; L82.1 Other seborrheic keratosis | CPT/HCPCS: 17000; 17110; 99213 ==

== ENCOUNTER 2023-03-30 13:45 | Outpatient (CLI) | payer OTHER, SELFPAY | END 2023-03-30 13:46 | disposition home or self-care (01) | PROVIDERS: PCP Family Medicine; Visit Provider Family Medicine | DX: R06.00 Dyspnea, unspecified (principal) | CPT/HCPCS: 94010; 94726; 94729 ==

== ENCOUNTER → 2023-04-14 16:28 | Outpatient (BNVA) | payer OTHER, SELFPAY | PROVIDERS: PCP Family Medicine; Visit Provider Internal Medicine Cardiovascular Disease | DX: Z45.010 Encounter for checking and testing of cardiac pacemaker pulse generator [battery] (principal) | CPT/HCPCS: 93296 ==

== ENCOUNTER → 2023-05-24 08:03 | Outpatient (BNVA) | payer OTHER, SELFPAY | PROVIDERS: PCP Family Medicine; Visit Provider Podiatrist Foot & Ankle Surgery | DX: M21.611 Bunion of right foot (principal); M65.871 Other synovitis and tenosynovitis, right ankle and foot | CPT/HCPCS: 99213 ==

== ENCOUNTER → 2023-06-10 13:46 | Outpatient (BNVA) | payer OTHER, SELFPAY | PROVIDERS: PCP Family Medicine; Visit Provider Nurse Practitioner Family | DX: L82.0 Inflamed seborrheic keratosis (principal); L85.3 Xerosis cutis; L57.0 Actinic keratosis; L82.1 Other seborrheic keratosis | CPT/HCPCS: 17000; 99214 ==

== ENCOUNTER 2023-06-22 16:05 | Inpatient (IN) | payer OTHER, SELFPAY ==
[2023-06-22] VITALS (10 sets, daily range): BP systolic 103–152; BP diastolic 54–87; PULSE 60–69; RESP 14–19; TEMP 36.7–37.8; O2SAT 91–97; BMI 27.8
--- NOTE | 2023-06-22 17:03 | W.ED.ABDPA2 ---
Documented by User: Kurt Shay DO 06/28/23 07:16 HPI - Abdominal Pain General: Chief Complaint: Abdominal Pain Stated Complaint: abd pain, fever, Time Seen by Provider: 06/22/23 17:01 Source: patient Mode of arrival: ambulatory History of Present Illness: 87-year-old male presents emergency room complaining of lightheadedness dizziness mild abdominal discomfort suprapubic over into the left lower quadrant. No fever sweats chills nausea vomiting or diarrhea. Denies dysuria urgency or frequency no hematochezia or melena. No chest discomfort. MD elicited complaint: abdominal pain Pertinent past history: none Onset (ago): minute(s) Quality: cramping Exacerbating factors: nothing Associated Symptoms: Denies chills, diarrhea, dysuria, fever(s), nausea and vomiting Review of Systems Const: Denies: fever(s) or chills Card: Denies: chest pain Resp: Denies: dyspnea GI: Reports: abdominal pain; Denies: nausea, vomiting or diarrhea : Denies: flank pain, dysuria, urinary frequency or urinary urgency Musc: Denies: neck pain or back pain Skin/Breast: Denies: rash PFSH ED PFSH: Medical History History of nonmelanoma skin cancer Pain in right lower leg Lower extremity edema Pacemaker Hypertension Surgical History S/P cardiac pacemaker procedure S/P knee surgery S/P vasectomy Family History Mother Myocardial infarction Social History Smoking and tobacco/nicotine status: former use of tobacco/nicotine Alcohol intake: never Substance/Drug Use: never Physical Exam Const: GENERAL APPEARANCE: cooperative and comfortable ORIENTATION/CONSCIOUSNESS: Yes awake, Yes oriented to person, Yes oriented to place and Yes oriented to time HENMT: COMMON NORMALS: normocephalic, atraumatic and hearing grossly normal bilaterally HEAD & SCALP: normocephalic and atraumatic Resp: COMMON NORMALS: normal respiratory effort, No retractions, No use of accessory muscles and clear to auscultation bilaterally AUSCULTATION: clear to auscultation bilaterally Cardio: COMMON NORMALS: regular rate, regular rhythm and No murmurs present (Cardio) RATE: regular rate RHYTHM: regular rhythm GI: COMMON NORMALS: No hepatosplenomegaly present AUSCULTATION: Yes normoactive bowel sounds PALPATION: Yes Tenderness to palpation present (GI) (Suprapubic left lower quadrant), No Guarding due to palpation present (GI) and Yes No hepatosplenomegaly present Extremity: COMMON NORMALS: normal to inspection, capillary refill normal, no clubbing, cyanosis or edema, no calf tenderness and no pedal edema Neuro: SENSORIUM/ORIENTATION: Yes oriented to person, Yes oriented to place and Yes oriented to time Skin: COMMON NORMALS: no rashes or lesions noted GENERAL SKIN EXAM: no rashes or lesions noted Course Vital Signs: Vital signs: Vital Signs Temperature 97.4 F L 06/26/23 07:46 Pulse Rate 59 L 06/26/23 15:43 Respiratory Rate 16 06/26/23 15:43 Blood Pressure 102/57 06/26/23 15:43 Pulse Oximetry 93 06/26/23 15:43 Oxygen Delivery Me thod Room Air 06/26/23 12:00 Oxygen Flow Rate 2 06/25/23 08:00 MDM - Abdominal Pain Medical Decision Making Care signed out to Dr. Rojas at change of shift. See final notes for diagnosis and disposition. I have discussed the patient's case with the off going physician <Dr. Shay> and I have assumed care of the patient. We have discussed the current lab/radiographic results that have been resulted and the pending tests. Lab Data 06/26/23 03:30 06/26/23 03:30 Labs/Radiology: Radiology Impressions Abdomen/Pelvis CT 06/22/23 17:30 IMPRESSION: 1. Appendix dilated to 12.5 mm with surrounding edema consistent with acute appendicitis with an apparent appendicolith at the base. 2. Prostate gland enlarged indenting the base of the urinary bladder, please correlate clinically. 3. Moderate bilateral fat containing inguinal hernias without bowel or inflammation. 4. Emphysematous changes. 5. Right kidney cyst, negative for follow up. 6. Right renal hilum vascular calcification. ADDENDUM: 06/22/231916 THIS REPORT CONTAINS FINDINGS THAT MAY BE CRITICAL TO PATIENT CARE. The findings were verbally communicated via telephone conference with Dr. Fajardo at 7:15 PM ELECTRICAL TESTS SUPERVISOR on 06/22/2023. The findings were acknowledged and understood. Laboratory Results WBC 14.55 10^3/uL (3.29-11.43) H 06/22/23 17:43 RBC 3.92 10^6/uL (3.85-5.65) 06/22/23 17:43 Hgb 13.40 g/dL (11.27-16.99) 06/22/23 17:43 Hct 40.1 % (37-53) 06/22/23 17:43 MCV 102.3 fl (82-101) H 06/22/23 17:43 MCH 34.2 pg (27-33) H 06/22/23 17:43 MCHC 33.4 g/dL (30-55) 06/22/23 17:43 RDW 13.1 % (12.1-15.1) 06/22/23 17:43 Plt Count 144 10^3/cmm (157-399) L 06/22/23 17:43 MPV 8.7 fL (7.4-10.4) 06/22/23 17:43 Neut % (Auto) 71.1 % 06/22/23 17:43 Lymph % (Auto) 21.6 % 06/22/23 17:43 Caldwell % (Auto) 6.5 % 06/22/23 17:43 Eos % (Auto) 0.3 % 06/22/23 17:43 Baso % (Auto) 0.2 % 06/22/23 17:43 Neut # (Auto) 10.33 10^3/uL (1.8-7.7) H 06/22/23 17:43 Lymph # (Auto) 3.2 10^3/uL (0.8-4.8) 06/22/23 17:43 Caldwell # (Auto) 1.0 10^3/uL (0.2-0.9) H 06/22/23 17:43 Eos # (Auto) 0.0 10^3/uL (0.0-0.8) 06/22/23 17:43 Baso # (Auto) 0.0 10^3/uL (0.0-0.1) 06/22/23 17:43 Nucleated RBC % (auto) 0 % 06/22/23 17:43 Nucleated RBCs # 0.0 /100WBC 06/22/23 17:43 PT 30.50 SECONDS (12.1-14.9) H D 06/22/23 21:08 INR 2.79 (0.8-1.2) H 06/22/23 21:08 Sodium 133 mmol/L (136-145) L 06/22/23 17:43 Potassium 4.2 mmol/L (3.5-5.1) 06/22/23 17:43 Chloride 98 mmol/L (98-107) 06/22/23 17:43 Carbon Dioxide 26 mmol/L (22-29) 06/22/23 17:43 Anion Gap 13.2 (5-19) 06/22/23 17:43 BUN 13 mg/dL (8-23) 06/22/23 17:43 Creatinine 1.0 mg/dL (0.7-1.2) 06/22/23 17:43 GFR Calculation Not Reportable 06/22/23 17:43 Glucose 140 mg/dL (65-115) H 06/22/23 17:43 Calculated Osmolality 278 mOsm/kg (285-295) L 06/22/23 17:43 Calcium 9.3 mg/dL (8.5-10.5) 06/22/23 17:43 Total Bilirubin 1.8 mg/dL (0.15-1.2) H 06/22/23 17:43 AST 28 U/L (0-40) 06/22/23 17:43 ALT 28 U/L (0-41) 06/22/23 17:43 Alkaline Phosphatase 99 U/L (40-130) 06/22/23 17:43 Troponin T 5th Gen ng/L 30 ng/L (0-15) H 06/22/23 21:08 NT-Pro-B Natriuret Pep 1156 pg/mL (0-450) H 06/22/23 21:08 Total Protein 6.3 g/dL (6.6-8.7) L 06/22/23 17:43 Albumin 4.0 g/dL (3.5-5.2) 06/22/23 17:43 Globulin 2.3 g/dL (1.3-4.6) 06/22/23 17:43 Lipase 17 U/L (13-60) 06/22/23 17:43 Blood Type O Positive 06/22/23 21:24 Rho(D) Type Rh positive 06/22/23 21:24 Antibody Screen Negative 06/22/23 21:24 Discharge Plan Discharge Patient Disposition: Admitted As Inpatient Admit Provider: Vish Bautista Clinical Impression: Acute appendicitis, Abdominal pain Condition: Stable Discharge Diet: Cardiac Discharge Activity: Resume usual activity Coding Level of Care Code ED Privacy Compliance Manager for Chg [employer]wd Documented by User: Margarito Rojas MD 06/28/23 19:55 HPI - Abdominal Pain General: Chief Complaint: Abdominal Pain Stated Complaint: abd pain, fever, Time Seen by Provider: 06/22/23 17:01 [facility] ED PFSH: Medical History History of nonmelanoma skin cancer Pain in right lower leg Lower extremity edema Pacemaker Hypertension Surgical History S/P cardiac pacemaker procedure S/P knee surgery S/P vasectomy Family History Mother Myocardial infarction Social History Smoking and tobacco/nicotine status: former use of tobacco/nicotine Alcohol intake: never Substance/Drug Use: never Course Vital Signs: Vital signs: Vital Signs Temperature 97.4 F L 06/26/23 07:46 Pulse Rate 59 L 06/26/23 15:43 Respiratory Rate 16 06/26/23 15:43 Blood Pressure 102/57 06/26/23 15:43 Pulse Oximetry 93 06/26/23 15:43 Oxygen Delivery Me thod Room Air 06/26/23 12:00 Oxygen Flow Rate 2 06/25/23 08:00 MDM - Abdominal Pain Medical Decision Making I have discussed the patient's case with the off going physician <Dr. Shay> and I have assumed care of the patient. We have discussed the current lab/radiographic results that have been resulted and the pending tests. Medical Records I reviewed the patient's medical records. Lab Data I reviewed the patient's lab results. 06/26/23 03:30 06/26/23 03:30 Labs/Radiology: Radiology Impressions Abdomen/Pelvis CT 06/22/23 17:30 IMPRESSION: 1. Appendix dilated to 12.5 mm with surrounding edema consistent with acute appendicitis with an apparent appendicolith at the base. 2. Prostate gland enlarged indenting the base of the urinary bladder, please correlate clinically. 3. Moderate bilateral fat containing inguinal hernias without bowel or inflammation. 4. Emphysematous changes. 5. Right kidney cyst, negative for follow up. 6. Right renal hilum vascular calcification. ADDENDUM: 06/22/231916 THIS REPORT CONTAINS FINDINGS THAT MAY BE CRITICAL TO PATIENT CARE. The findings were verbally communicated via telephone conference with Dr. Fajardo at 7:15 PM ELECTRICAL TESTS SUPERVISOR on 06/22/2023. The findings were acknowledged and understood. Laboratory Results WBC 14.55 10^3/uL (3.29-11.43) H 06/22/23 17:43 RBC 3.92 10^6/uL (3.85-5.65) 06/22/23 17:43 Hgb 13.40 g/dL (11.27-16.99) 06/22/23 17:43 Hct 40.1 % (37-53) 06/22/23 17:43 MCV 102.3 fl (82-101) H 06/22/23 17:43 MCH 34.2 pg (27-33) H 06/22/23 17:43 MCHC 33.4 g/dL (30-55) 06/22/23 17:43 RDW 13.1 % (12.1-15.1) 06/22/23 17:43 Plt Count 144 10^3/cmm (157-399) L 06/22/23 17:43 MPV 8.7 fL (7.4-10.4) 06/22/23 17:43 Neut % (Auto) 71.1 % 06/22/23 17:43 Lymph % (Auto) 21.6 % 06/22/23 17:43 Caldwell % (Auto) 6.5 % 06/22/23 17:43 Eos % (Auto) 0.3 % 06/22/23 17:43 Baso % (Auto) 0.2 % 06/22/23 17:43 Neut # (Auto) 10.33 10^3/uL (1.8-7.7) H 06/22/23 17:43 Lymph # (Auto) 3.2 10^3/uL (0.8-4.8) 06/22/23 17:43 Caldwell # (Auto) 1.0 10^3/uL (0.2-0.9) H 06/22/23 17:43 Eos # (Auto) 0.0 10^3/uL (0.0-0.8) 06/22/23 17:43 Baso # (Auto) 0.0 10^3/uL (0.0-0.1) 06/22/23 17:43 Nucleated RBC % (auto) 0 % 06/22/23 17:43 Nucleated RBCs # 0.0 /100WBC 06/22/23 17:43 PT 30.50 SECONDS (12.1-14.9) H D 06/22/23 21:08 INR 2.79 (0.8-1.2) H 06/22/23 21:08 Sodium 133 mmol/L (136-145) L 06/22/23 17:43 Potassium 4.2 mmol/L (3.5-5.1) 06/22/23 17:43 Chloride 98 mmol/L (98-107) 06/22/23 17:43 Carbon Dioxide 26 mmol/L (22-29) 06/22/23 17:43 Anion Gap 13.2 (5-19) 06/22/23 17:43 BUN 13 mg/dL (8-23) 06/22/23 17:43 Creatinine 1.0 mg/dL (0.7-1.2) 06/22/23 17:43 GFR Calculation Not Reportable 06/22/23 17:43 Glucose 140 mg/dL (65-115) H 06/22/23 17:43 Calculated Osmolality 278 mOsm/kg (285-295) L 06/22/23 17:43 Calcium 9.3 mg/dL (8.5-10.5) 06/22/23 17:43 Total Bilirubin 1.8 mg/dL (0.15-1.2) H 06/22/23 17:43 AST 28 U/L (0-40) 06/22/23 17:43 ALT 28 U/L (0-41) 06/22/23 17:43 Alkaline Phosphatase 99 U/L (40-130) 06/22/23 17:43 Troponin T 5th Gen ng/L 30 ng/L (0-15) H 06/22/23 21:08 NT-Pro-B Natriuret Pep 1156 pg/mL (0-450) H 06/22/23 21:08 Total Protein 6.3 g/dL (6.6-8.7) L 06/22/23 17:43 Albumin 4.0 g/dL (3.5-5.2) 06/22/23 17:43 Globulin 2.3 g/dL (1.3-4.6) 06/22/23 17:43 Lipase 17 U/L (13-60) 06/22/23 17:43 Blood Type O Positive 06/22/23 21:24 Rho(D) Type Rh positive 06/22/23 21:24 Antibody Screen Negative 06/22/23 21:24 All radiology interpretation(s) finalized by discharge Discharge Plan Discharge Patient Disposition: Admitted As Inpatient Admit Provider: Vish Bautista Clinical Impression: Acute appendicitis, Abdominal pain Condition: Stable Discharge Diet: Cardiac Discharge Activity: Resume usual activity Coding Level of Care Code ED Privacy Compliance Manager for Ishan Kendall
--- NOTE | 2023-06-22 17:30 | CTR_ITS ---
PROCEDURE INFORMATION: Exam: CT Abdomen And Pelvis Without Contrast Exam date and time: 06/22/2023 6:46 PM Age: 87 years old Clinical indication: Abdominal pain; Generalized TECHNIQUE: Imaging protocol: Computed tomography of the abdomen and pelvis without contrast. Radiation optimization: All CT scans at this facility use at least one of these dose optimization techniques: automated exposure control; mA and/or kV adjustment per patient size (includes targeted exams where dose is matched to clinical indication); or iterative reconstruction. COMPARISON: CT abdomen pelvis wo/w [id number] 07/13/2022 4:51 PM RADIATION DOSE METRICS: Total DLP (mGy-cm): 765 FINDINGS: Lungs: Emphysematous changes. Liver: Normal. No mass. Gallbladder and bile ducts: Normal. No calcified stones. No ductal dilation. Pancreas: Normal. No ductal dilation. Spleen: Normal. No splenomegaly. Adrenal glands: Normal. No mass. Kidneys and ureters: Right kidney cyst, negative for follow up. Right renal hilum vascular calcification. Stomach and bowel: Unremarkable. No obstruction. No mucosal thickening. Appendix: Appendix dilated to 12.5 mm with surrounding edema consistent with acute appendicitis with an apparent appendicolith at the base. Intraperitoneal space: Unremarkable. No free air. No significant fluid collection. Vasculature: Unremarkable. No abdominal aortic aneurysm. Lymph nodes: Unremarkable. No enlarged lymph nodes. Urinary bladder: Unremarkable as visualized. Reproductive: Prostate gland enlarged indenting the base of the urinary bladder, please correlate clinically. Bones/joints: Unremarkable. No acute fracture. Soft tissues: Moderate bilateral fat containing inguinal hernias without bowel or inflammation. CT/CT abdomen pelvis wo con [id number] IMPRESSION: 1. Appendix dilated to 12.5 mm with surrounding edema consistent with acute appendicitis with an apparent appendicolith at the base. 2. Prostate gland enlarged indenting the base of the urinary bladder, please correlate clinically. 3. Moderate bilateral fat containing inguinal hernias without bowel or inflammation. 4. Emphysematous changes. 5. Right kidney cyst, negative for follow up. 6. Right renal hilum vascular calcification.
[2023-06-22 17:53] LABS: Basophils % 0.2 %; Eosinophils % 0.3 %; Hematocrit 40.1 % (37-53); Lymphocytes # 3.2 10^3/uL (0.8-4.8); Lymphocytes % 21.6 %; Mean Corpuscular HGB Conc 33.4 g/dL (30-55); Mean Corpuscular Hemoglobin 34.2 pg (27-33); Mean Corpuscular Volume 102.3 fl (82-101); Mean Platelet Volume 8.7 fL (7.4-10.4); Monocytes % 6.5 %; Neutrophils # 10.33 10^3/uL (1.8-7.7); Neutrophils % 71.1 %; Nucleated Red Blood Cells % 0 %; Platelet Count 144 10^3/cmm (157-399); Red Blood Count 3.92 10^6/uL (3.85-5.65); Red Cell Distribution Width 13.1 % (12.1-15.1); White Blood Count 14.55 10^3/uL (3.29-11.43)
[2023-06-22 18:19] LABS: Alanine Aminotransferase 28 U/L (0-41); Alkaline Phosphatase 99 U/L (40-130); Anion Gap 13.2 (5-19); Aspartate Amino Transferase 28 U/L (0-40); Blood Urea Nitrogen 13 mg/dL (8-23); Calcium 9.3 mg/dL (8.5-10.5); Carbon Dioxide 26 mmol/L (22-29); Chloride 98 mmol/L (98-107); Creatinine Clr Calc Pharmacy 59.9689; Globulin 2.3 g/dL (1.3-4.6); Glucose 140 mg/dL (65-115); Lipase 17 U/L (13-60); Osmolality Calculated 278 mOsm/kg (285-295); Potassium 4.2 mmol/L (3.5-5.1); Sodium 133 mmol/L (136-145); Total Bilirubin 1.8 mg/dL (0.15-1.2); Total Protein 6.3 g/dL (6.6-8.7)
[2023-06-22] MEDS: ketorolac 30 mg/mL INJ IVP (19:20)
[2023-06-22] MEDS: ondansetron 2 mg/ML SDV 2 mL 4 MG IVP (19:20)
[2023-06-22] MEDS: cefTRIAXone 1,000 MG in sodium chloride 0.9% (plus) 50 ML 100 MG IV (19:32)
[2023-06-22] MEDS: metroNIDAZOLE IV 500 MG/100 ML PREMIX 100 MG IV (19:34)
[2023-06-22] MEDS: morphine 4 mg/mL SDV 1 mL IVP (20:39)
--- NOTE | 2023-06-22 21:07 | P.CONIM_ITS ---
Providers/Reason For Consult 2 Consulting Physician/Specialty*: Dr. Vish Bautista DO/General surgery Reason for Consult*: Appendicitis Attending Physician: Vish Bautista DO Primary Care Provider: Shayla Mesa MD History of Present Illness History of Present Illness Eddy Miner is a 87 year old male who presented to the hospital with a 3- day history of right lower quadrant abdominal pain. Pain is sharp and constant. Palpation makes pain worse. Nothing makes pain better. The pain does not radiate. He denies any nausea, emesis, diarrhea, constipation, hematochezia and/or melena. He does take Coumadin for A-fib and last took it last night. He last ate at 1 PM and had flavored water at [address] abdomen pelvis shows a dilated appendix with surrounding inflammation and an appendicolith. Review of Systems 2 General: Reports: 10 or more systems reviewed and unremarkable except in HPI and below Medications/Allergies Home Medications Medication Instructions Recorded Confirmed Last Taken Type dutasteride 0.5 mg capsule 0.5 mg PO DAILY 07/10/20 05/24/23 01/23/22 History montelukast 10 mg tablet 10 mg PO DAILY 07/10/20 05/24/23 01/23/22 History omeprazole 20 mg tablet,delayed 20 mg PO DAILY 07/10/20 05/24/23 01/23/22 History release trazodone 50 mg tablet 50 mg PO BEDTIME 07/10/20 05/24/23 01/23/22 History warfarin 3 mg tablet See Rx Instructions .Route .COMPLEX 07/10/20 05/24/23 01/23/22 History acetylcarnitine HCl 250 mg capsule 250 mg PO DAILY 01/24/22 05/24/23 01/23/22 History ashwagandha root extract 300 mg 300 mg PO DAILY 01/24/22 05/24/23 01/23/22 History capsule calcium carb 333 mg-vit D3 133 1 tab PO DAILY 01/24/22 05/24/23 01/23/22 History unit-mag ox 133 mg-zinc oxide 5 mg tab (Romie Mag Zinc Plus D3) cholecalciferol (vitamin D3) 25 25 mcg PO DAILY 01/24/22 05/24/23 01/23/22 History mcg (1,000 unit) capsule (Vitamin D3) coenzyme Q10 100 mg capsule 100 mg PO DAILY 01/24/22 05/24/23 01/23/22 History glucosamine-chondroitin 250 mg-200 1 tab PO BID 01/24/22 05/24/23 01/23/22 History mg tablet (Osteo Bi-Flex) multivitamin 1 tab PO DAILY 01/24/22 05/24/23 01/23/22 History potassium 99 mg tablet 99 mg PO BEDTIME 01/24/22 05/24/23 01/23/22 History saw palmetto 160 mg capsule 160 mg PO TID 01/24/22 05/24/23 01/23/22 History turmeric 400 mg capsule 400 mg PO BID 01/24/22 05/24/23 01/23/22 History vitamin A 2,400 mcg capsule 2,400 mcg PO DAILY 01/24/22 05/24/23 01/23/22 History vitamin B complex 1 cap PO DAILY 01/24/22 05/24/23 01/23/22 History aspirin 81 mg tablet,delayed 81 mg PO DAILY 02/25/22 05/24/23 Unknown History release (Adult Low Dose Aspirin) fluticasone propionate 50 1 spray intranasal Q12H PRN 09/01/22 05/24/23 Unknown History mcg/actuation nasal spray,suspension loratadine 10 mg tablet 10 mg PO DAILY PRN 09/01/22 05/24/23 Unknown History Custom Molded Copolymer Orthotics #1 ea 12/28/22 05/24/23 Unknown Rx and Orthopedic Shoes metoprolol tartrate 25 mg tablet 25 mg PO BID #180 tabs 12/28/22 05/24/23 Unknown Rx triamcinolone acetonide 0.5 % 1 applic topical BID #15 grams 02/28/23 05/24/23 Unknown Rx topical cream albuterol sulfate 90 mcg/actuation 2 puff inhalation BID 03/02/23 05/24/23 Unknown History aerosol inhaler (ProAir HFA) gabapentin 100 mg capsule 300 mg PO BID 03/02/23 05/24/23 Unknown History mupirocin 2 % topical ointment 1 applic topical BID PRN 03/02/23 05/24/23 Unknown History Allergies Allergy/AdvReac Type Severity Reaction Status Date / Time Sulfa (Sulfonamide Allergy Unknown unknown Verified 06/22/23 16:31 Antibiotics) amoxicillin Allergy ALGY-Rash Verified 06/22/23 16:31 PFSH Acute 2 PFSH: Medical History History of nonmelanoma skin cancer Pain in right lower leg Lower extremity edema Pacemaker Hypertension Surgical History S/P cardiac pacemaker procedure S/P knee surgery S/P vasectomy Family History Mother Myocardial infarction Social History Smoking and tobacco/nicotine status: former use of tobacco/nicotine Alcohol intake: never Substance/Drug Use: never Vitals/I&O/Wt Last Vital Signs Temp 98.0 F 06/22/23 16:32 Pulse 67 06/22/23 18:31 Resp 17 06/22/23 20:39 BP 146/76 06/22/23 18:31 Pulse Ox 94 06/22/23 20:39 O2 Del Method Room Air 06/22/23 18:31 Weight last 48 hrs Weight 200 lb Physical Exam 2 Narrative: General : Patient is well developed , no acute distress, oriented x3 Head : Normal cephalic, a-traumatic. Ears : Pinnae and external canal are normal. Hearing is normal. Eyes : PERRLA, Sclera and injection are normal. No conjunctival discharge. Nose : Mucous membranes are without erythema. Throat : buccal mucosa is normal, gums are without significant recession or hypertrophy. Lungs : Equal chest rise bilaterally, no use of accessory muscles, trachea is midline. Cor : Rate and rhythm are normal. Abdomen : Soft, ND, tender to palpation right lower quadrant, negative Rovsing's, no g/r/m Extremities : No edema, no cyanosis or clubbing, dorsalis pedis pulses are present bilaterally, non-tender to palpation of calves. Upper extremities are normal bilaterally. Back : non-tender to palpation, no CVA tenderness. Neuro : CN II - XII intact, Upper and lower extremities have equal and full strength Data 06/22/23 17:43 06/22/23 17:43 A&P Assessment and plan (1) Acute appendicitis: (2) Afib: Plan Stat coags Transfuse 4 units FFP Laparoscopic Appendectomy The risks and benefits of the procedure, including but not limited to, bleeding, infection, scar, numbness, pain, damage to surrounding structures, conversion to an open procedure, were explained to the patient. He is understanding of the risks and wishes to proceed. Coding Level of Care Code 80699 Diagnoses Acute appendicitis K35.80 Afib I48.91
--- NOTE | 2023-06-22 21:19 | P.HP_ITS ---
Providers/Chief Complaint 2 Primary Care Provider: Shayla Mesa MD Chief Complaint: abd pain, fever, History of Present Illness Pleasant 87-year-old gentleman with history of chronic/recurrent lower extremity pitting/nonpitting edema, pacemaker, hypertension, he states he recently had a stress test, he has not been having any chest pain, he states he has been quite active, normally goes on frequent walks. Walks are sometimes limited by pain in his feet due to bunions and other problems. Stress test looks like was done back in January 2023 and was normal. He presented to ER with right lower quadrant abdominal pain, nausea. In ER with leukocytosis 14.55, no other SIRS/sepsis signs. Noted some hyperbilirubinemia 1.8, normal alk phos, normal transaminases, normal lipase. CT abdomen pelvis showed normal gallbladder, no ductal dilation no calcified stones. He is noted to have dilated appendix 12.55 mm surrounding edema consistent with acute appendicitis with apparent appendicolith at the base. Incidentally noted prostate gland enlargement indenting the base of the urinary bladder. Incidentally seen emphysematous changes in the lungs. Inguinal hernias. Surgery was contacted in ER. Hospitalist called for admission request. Review of Systems 2 Const: Denies: fever(s), chills, body aches or malaise ENMT: Denies: throat pain Card: Denies: chest pain, edema, pre-syncope or dyspnea on exertion Resp: Denies: dyspnea, productive cough, change in phlegm color or hemoptysis GI: Reports: abdominal pain and nausea; Denies: vomiting, diarrhea, constipation, hematochezia or melena : Denies: flank pain, difficulty urinating, urinary frequency or hematuria Musc: Denies: back pain, joint swelling or joint redness Skin/Breast: Denies: rash or new lesions Neuro: Denies: headache(s) Medications/Allergies Home Medications Medication Instructions Recorded Confirmed Last Taken Type dutasteride 0.5 mg capsule 0.5 mg PO DAILY 07/10/20 05/24/23 01/23/22 History montelukast 10 mg tablet 10 mg PO DAILY 07/10/20 05/24/23 01/23/22 History omeprazole 20 mg tablet,delayed 20 mg PO DAILY 07/10/20 05/24/23 01/23/22 History release trazodone 50 mg tablet 50 mg PO BEDTIME 07/10/20 05/24/23 01/23/22 History warfarin 3 mg tablet See Rx Instructions .Route .COMPLEX 07/10/20 05/24/23 01/23/22 History acetylcarnitine HCl 250 mg capsule 250 mg PO DAILY 01/24/22 05/24/23 01/23/22 History ashwagandha root extract 300 mg 300 mg PO DAILY 01/24/22 05/24/23 01/23/22 History capsule calcium carb 333 mg-vit D3 133 1 tab PO DAILY 01/24/22 05/24/23 01/23/22 History unit-mag ox 133 mg-zinc oxide 5 mg tab (Romie Mag Zinc Plus D3) cholecalciferol (vitamin D3) 25 25 mcg PO DAILY 01/24/22 05/24/23 01/23/22 History mcg (1,000 unit) capsule (Vitamin D3) coenzyme Q10 100 mg capsule 100 mg PO DAILY 01/24/22 05/24/23 01/23/22 History glucosamine-chondroitin 250 mg-200 1 tab PO BID 01/24/22 05/24/23 01/23/22 History mg tablet (Osteo Bi-Flex) multivitamin 1 tab PO DAILY 01/24/22 05/24/23 01/23/22 History potassium 99 mg tablet 99 mg PO BEDTIME 01/24/22 05/24/23 01/23/22 History saw palmetto 160 mg capsule 160 mg PO TID 01/24/22 05/24/23 01/23/22 History turmeric 400 mg capsule 400 mg PO BID 01/24/22 05/24/23 01/23/22 History vitamin A 2,400 mcg capsule 2,400 mcg PO DAILY 01/24/22 05/24/23 01/23/22 History vitamin B complex 1 cap PO DAILY 01/24/22 05/24/23 01/23/22 History aspirin 81 mg tablet,delayed 81 mg PO DAILY 02/25/22 05/24/23 Unknown History release (Adult Low Dose Aspirin) fluticasone propionate 50 1 spray intranasal Q12H PRN 09/01/22 05/24/23 Unknown History mcg/actuation nasal spray,suspension loratadine 10 mg tablet 10 mg PO DAILY PRN 09/01/22 05/24/23 Unknown History Custom Molded Copolymer Orthotics #1 ea 12/28/22 05/24/23 Unknown Rx and Orthopedic Shoes metoprolol tartrate 25 mg tablet 25 mg PO BID #180 tabs 12/28/22 05/24/23 Unknown Rx triamcinolone acetonide 0.5 % 1 applic topical BID #15 grams 02/28/23 05/24/23 Unknown Rx topical cream albuterol sulfate 90 mcg/actuation 2 puff inhalation BID 03/02/23 05/24/23 Unknown History aerosol inhaler (ProAir HFA) gabapentin 100 mg capsule 300 mg PO BID 03/02/23 05/24/23 Unknown History mupirocin 2 % topical ointment 1 applic topical BID PRN 03/02/23 05/24/23 Unknown History Allergies Allergy/AdvReac Type Severity Reaction Status Date / Time Sulfa (Sulfonamide Allergy Unknown unknown Verified 06/22/23 16:31 Antibiotics) amoxicillin Allergy ALGY-Rash Verified 06/22/23 16:31 PFSH Acute 2 PFSH: Medical History History of nonmelanoma skin cancer Pain in right lower leg Lower extremity edema Pacemaker Hypertension Surgical History S/P cardiac pacemaker procedure S/P knee surgery S/P vasectomy Family History Mother Myocardial infarction Social History Smoking and tobacco/nicotine status: former use of tobacco/nicotine Alcohol intake: never Substance/Drug Use: never Vitals/I&O/Wt Last Vital Signs Temp 100.1 F H 06/22/23 21:10 Pulse 67 06/22/23 18:31 Resp 17 06/22/23 20:39 BP 146/76 06/22/23 18:31 Pulse Ox 94 06/22/23 20:39 O2 Del Method Room Air 06/22/23 18:31 Weight last 48 hrs Weight 90.718 kg Physical Exam 2 Narrative: Accompanied by his Const: COMMON NORMALS: patient oriented x3 and alert GENERAL APPEARANCE: c ooperative ORIENTATION/CONSCIOUSNESS: Yes awake HENMT: COMMON NORMALS: oropharynx normal Neck/C-Spine: COMMON NORMALS: no JVD Resp: COMMON NORMALS: normal respiratory effort and clear to auscultation bilaterally AUSCULTATION: clear to auscultation bilaterally Cardio: COMMON NORMALS: no JVD, regular rhythm, S1 normal heart sound present, S2 normal heart sound present and No murmurs present (Cardio) RHYTHM: regular rhythm HEART SOUNDS: S1 normal heart sound present and S2 normal heart sound present GI: COMMON NORMALS: Normal to inspection, nondistended, normoactive bowel sounds present, Soft to palpation and non-tender PALPATION: Yes Soft to palpation OTHER: RLQ tenderness Extremity: COMMON NORMALS: no joint enlargement GENERAL: Yes edema (1+ BL LE) Neuro: COMMON NORMALS: patient oriented x3 and moves all extremities S ENSORIUM/ORIENTATION: Yes alert Skin: COMMON NORMALS: no rashes or lesions noted GENERAL SKIN EXAM: no rashes or lesions noted Data 06/22/23 17:43 06/22/23 17:43 A&P Assessment and plan (1) Acute appendicitis: With SIRS, without sepsis, WBC 14.55, temp 100.1. Not tachycardic, tachypneic or other symptoms of sepsis. Risk of complicated appendicitis with noted appendicolith. Risk of rupture. Risk of progression to sepsis. Reviewed vitals, WBC, CMP, CT abdomen pelvis, ER physician note, discussed with ER physician. Pending surgery assessment for acute appendicitis. Also noted hyperbilirubinemia, without alk phos elevation, no CBD dilation, no stones or gallbladder abnormality on CT, lower quadrant pain. Pain in right lower quadrant. Recheck liver parameters. In the meantime continue to biotics ceftriaxone, Flagyl. He would be agreeable for surgical intervention. He states he is usually very active, walks quite often, although is limited somewhat by problems with his feet. Risk factors would include his age, COPD, chronic cardiac problems with atrial fibrillation, additional underlying comorbidities, but otherwise does not appear to require additional optimization before intervention. Had a normal stress test back in January. Obtain baseline troponin and EKG. NT-proBNP. NPO. DVT prophylaxis with heparin. Analgesic IV morphine. Antiemetic. Check INR (2) Hyperbilirubinemia: Recheck liver parameters. Reviewed CT abdomen pelvis. Reviewed transaminases, alk phos. Lipase. Plan Chronic lower extremity edema Chronic A-fib: Check INR. Continue metoprolol. Pacemaker Hypertension GERD: PPI HLD Insomnia OA Chronic atrial fibrillation COPD: Not in exacerbation. Breathing treatments scheduled and as needed. Requesting to confirm home medications. Please review and reconcile once available. Attestations 2 Medical Necessity Statement*: Admission of over 2 midnights anticipated for assessment of management of acute appendicitis, SIRS, risk of progression of sepsis in an elderly gentleman with additional comorbidities including atrial fibrillation, COPD. Diagnoses Acute appendicitis K35.80 Hyperbilirubinemia E80.6
--- NOTE | 2023-06-22 21:25 | P.ANESASSM_ITS ---
Pre-Anesthetic Assessment Height/Weight: Height 1.8 m Weight 90.718 kg Temp Pulse Resp BP Pulse Ox O2 Del Method 100.1 F H 67 17 146/76 94 Room Air 06/22/23 21:10 06/22/23 18:31 06/22/23 20:39 06/22/23 18:31 06/22/23 20:39 06/22/23 18:31 Operation Date: 06/22/23 21:00 Proposed Procedures p Laparoscopic Appendectomy(Not Applicable) - Vish Bautista DO Familial anesthetic complications: none Was Beta Abel taken within 24 hours: Yes Was Clonidine taken within 24 hours: N/A Social No alcohol and No tobacco Exam alert, oriented x 3, clear to auscultation bilaterally and regular rate & rhythm Airway Submandibular: within normal limits Cervical ROM: within normal limits Mallampati: Class II Dentition: false (upper) and partials (lower) CV/HEM Atrial Fibrillation and Hypertension Pacemaker GI Gastroesophageal Reflux Disease Neuropsych Neuropathy Anesthetic Plan ASA status: 3 Anesthesia: General (RSI) Medications/Allergies Home Medications Medication Instructions Recorded Confirmed Last Taken Type dutasteride 0.5 mg capsule 0.5 mg PO DAILY 07/10/20 05/24/23 01/23/22 History montelukast 10 mg tablet 10 mg PO DAILY 07/10/20 05/24/23 01/23/22 History omeprazole 20 mg tablet,delayed 20 mg PO DAILY 07/10/20 05/24/23 01/23/22 History release trazodone 50 mg tablet 50 mg PO BEDTIME 07/10/20 05/24/23 01/23/22 History warfarin 3 mg tablet See Rx Instructions .Route .COMPLEX 07/10/20 05/24/23 01/23/22 History acetylcarnitine HCl 250 mg capsule 250 mg PO DAILY 01/24/22 05/24/23 01/23/22 History ashwagandha root extract 300 mg 300 mg PO DAILY 01/24/22 05/24/23 01/23/22 History capsule calcium carb 333 mg-vit D3 133 1 tab PO DAILY 01/24/22 05/24/23 01/23/22 History unit-mag ox 133 mg-zinc oxide 5 mg tab (Romie Mag Zinc Plus D3) cholecalciferol (vitamin D3) 25 25 mcg PO DAILY 01/24/22 05/24/23 01/23/22 History mcg (1,000 unit) capsule (Vitamin D3) coenzyme Q10 100 mg capsule 100 mg PO DAILY 01/24/22 05/24/23 01/23/22 History glucosamine-chondroitin 250 mg-200 1 tab PO BID 01/24/22 05/24/23 01/23/22 History mg tablet (Osteo Bi-Flex) multivitamin 1 tab PO DAILY 01/24/22 05/24/23 01/23/22 History potassium 99 mg tablet 99 mg PO BEDTIME 01/24/22 05/24/23 01/23/22 History saw palmetto 160 mg capsule 160 mg PO TID 01/24/22 05/24/23 01/23/22 History turmeric 400 mg capsule 400 mg PO BID 01/24/22 05/24/23 01/23/22 History vitamin A 2,400 mcg capsule 2,400 mcg PO DAILY 01/24/22 05/24/23 01/23/22 History vitamin B complex 1 cap PO DAILY 01/24/22 05/24/23 01/23/22 History aspirin 81 mg tablet,delayed 81 mg PO DAILY 02/25/22 05/24/23 Unknown History release (Adult Low Dose Aspirin) fluticasone propionate 50 1 spray intranasal Q12H PRN 09/01/22 05/24/23 Unknown History mcg/actuation nasal spray,suspension loratadine 10 mg tablet 10 mg PO DAILY PRN 09/01/22 05/24/23 Unknown History Custom Molded Copolymer Orthotics #1 ea 12/28/22 05/24/23 Unknown Rx and Orthopedic Shoes metoprolol tartrate 25 mg tablet 25 mg PO BID #180 tabs 12/28/22 05/24/23 Unknown Rx triamcinolone acetonide 0.5 % 1 applic topical BID #15 grams 02/28/23 05/24/23 Unknown Rx topical cream albuterol sulfate 90 mcg/actuation 2 puff inhalation BID 03/02/23 05/24/23 Unknown History aerosol inhaler (ProAir HFA) gabapentin 100 mg capsule 300 mg PO BID 03/02/23 05/24/23 Unknown History mupirocin 2 % topical ointment 1 applic topical BID PRN 03/02/23 05/24/23 Unknown History Allergies Allergy/AdvReac Type Severity Reaction Status Date / Time Sulfa (Sulfonamide Allergy Unknown unknown Verified 06/22/23 16:31 Antibiotics) amoxicillin Allergy ALGY-Rash Verified 06/22/23 16:31 [facility] Anesthesia Medical History History of nonmelanoma skin cancer Pain in right lower leg Lower extremity edema Pacemaker Hypertension Surgical History S/P cardiac pacemaker procedure S/P knee surgery S/P vasectomy Family History Mother Myocardial infarction Social History Smoking and tobacco/nicotine status: former use of tobacco/nicotine Alcohol intake: never Substance/Drug Use: never Data Anesthesia 06/22/23 17:43 06/22/23 17:43 Short CBC 06/22/23 Range/Units 17:43 WBC 14.55 H (3.29-11.43) 10^3/uL Hgb 13.40 (11.27-16.99) g/dL Hct 40.1 (37-53) % MCV 102.3 H (82-101) fl Plt Count 144 L (157-399) 10^3/cmm Neut % (Auto) 71.1 % Neut # (Auto) 10.33 H (1.8-7.7) 10^3/uL BMP 06/22/23 17:43 Sodium 133 L Potassium 4.2 Chloride 98 Carbon Dioxide 26 BUN 13 Creatinine 1.0 Glucose 140 H Calcium 9.3 Liver Function 06/22/23 Range/Units 17:43 Total Bilirubin 1.8 H (0.15-1.2) mg/dL AST 28 (0-40) U/L ALT 28 (0-41) U/L Alkaline Phosphatase 99 (40-130) U/L Albumin 4.0 (3.5-5.2) g/dL Cardiac Studies: 2 Sestamibi Stress Test (Cardiology) 01/14
[2023-06-22 22:06] LABS: INR 2.79 (0.8-1.2)
[2023-06-22 22:08] LABS: Troponin T (5th) Once 30 ng/L (0-15)
[2023-06-22 22:18] LABS: NT Pro B Type Natriuretic Pept 1156 pg/mL (0-450)
[2023-06-22] MEDS: lidocaine-epi 2% PF 1:200,000 20 mL SDV 6 ML XX (23:07)
[2023-06-22 23:12] LABS: Add Urine Microscopic? YES; Bilirubin Urine Neg (Negative); Blood Urine Neg (Negative); Glucose Urine UA Norm (Normal); Ketones Urine Negative (Negative); Leukocyte Esterase Urine Negative (Negative); Nitrate Urine Negative (Negative); Protein Urine Trace (Negative); Urine Appearance Clear (CLEAR); Urine Color Yellow (Yellow); Urobilinogen Urine Neg (Negative); pH Urine 7 (5-7)
[2023-06-22 23:13] LABS: Add Urine Culture? No; Mucus Urine TRACE /hpf
--- NOTE | 2023-06-22 23:17 | P.OP_ITS ---
Operative Report Date of procedure: June 22, 2023 Pre-op diagnosis: Acute appendicitis Post-op diagnosis: Acute suppurative and gangrenous appendicitis Procedure done: Laparoscopic appendectomy Implants: 19 Syrian Star drain Specimens removed/disposition: Appendix Surgeon: Vish Bautista DO Anesthesia: General and Local Estimated blood loss (mL): 5 Complications: None apparent Brief History: This is a very pleasant 87-year-old gentleman who presented to the hospital with abdominal pain. He was diagnosed with acute appendicitis. Laparoscopic appendectomy was indicated. The risk and benefits were explained and documented. Procedure: Patient was wheeled into the operative room and placed on the OR table in a supine position. Abdomen was inspected prepped and draped in usual sterile fashion. Time-out was performed and all present were in agreement. A 15 blade scalp was used to make a stab incision in the left upper quadrant and intra- abdominal insufflation was achieved using a Veress needle. After localizing the tissue incisions were made and a 12 millimeter trocar was placed into the umbilicus as well as a 5mm in the right lower quadrant and a 5 mm in the left lower quadrant . The appendix was identified and was very suppurative, with surrounding purulence and an area of gangrenous necrosis near the base.. I used the ligature to ligate the mesoappendix at the base. I then used 2 PDS endo- loops to snare the base of the appendix. I then used the LigaSure to ligate the appendix distally. The appendix was removed from the abdomen using an Endo- Catch bag through the umbilical incision. All purulence was suctioned from the abdomen. I examined the abdomen and no further pathology was identified. Hemostasis was noted. A 19 Syrian Star drain was placed through the right lower quadrant and into the pelvis and right paracolic gutter. I then closed the umbilical site with a Khai-Farrukh and 0 Vicryl suture in a figure of 8 fashion. All ports removed. Skin was washed and dried. Incisions were closed with 3-0 nylon in a simple fashion. Sterile bandage was applied. Patient tolerated the procedure well. Due to the severity of his disease, I will keep him in the hospital for at least 2 days of IV antibiotics and drainage
--- NOTE | 2023-06-22 23:41 | ANE.PACU2 ---
Inpatient post-anesthesia follow up: Airway intact: Yes Vital signs: Temperature 100.1 F Pulse Rate 62 Respiratory Rate 19 Blood Pressure 140/84 Pulse Oximetry 95 Oxygen Delivery Me thod Room Air Oxygen Flow Rate Fraction of Inspir ed Oxygen Hydration adequate: Yes Nausea and vomiting: No Pain level: 3 Mental status: Baseline
[2023-06-23] VITALS (15 sets, daily range): BP systolic 103–129; BP diastolic 60–78; PULSE 59–81; RESP 15–18; TEMP 36.6–36.8; O2SAT 91–98
--- NOTE | 2023-06-23 00:10 | ANE.PACU2 ---
Inpatient post-anesthesia follow up: Airway intact: Yes Vital signs: Temperature 99.6 F Pulse Rate 60 Respiratory Rate 17 Blood Pressure 115/54 Pulse Oximetry 97 Oxygen Delivery Me thod Room Air Oxygen Flow Rate 6 Fraction of Inspir ed Oxygen Hydration adequate: Yes Nausea and vomiting: No Pain level: 2 Mental status: Baseline
[2023-06-23 00:29] LABS: INR 1.61 (0.8-1.2)
--- NOTE | 2023-06-23 00:34 | ECG_ITS ---
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 Measurements Intervals [place] Rate: 60 P: 0 [place]: 0 QRS: -80 QRSD: 202 T: 90 QT: 500 QTc: 500 Interpretive Statements ELECTRONIC VENTRICULAR PACEMAKER Compared to ECG 12/28/2022 15:34:28 No significant changes Electronically Signed On 06-23-2023 15:47:49 [employer] BLOWER by Jose Haile M.D. [id number]
--- NOTE | 2023-06-23 00:39 | PC.NURSE ---
Pt arrived on floor at 0035 transported by PACU nurse. Patient settled in bed and assessment completed; red, hive-like rash covering the patient's inner arms, back of thighs, groin, and lower sides.
[2023-06-23] MEDS: metroNIDAZOLE IV 500 MG/100 ML PREMIX 100 MG IV ×4 (01:11→18:28)
[2023-06-23] MEDS: heparin 5,000 unit/mL INJ 1 mL 5000 UNIT SUBCUT (05:36)
[2023-06-23 06:05] LABS: Basophils % 0.1 %; Hematocrit 36.5 % (37-53); Lymphocytes # 2.8 10^3/uL (0.8-4.8); Lymphocytes % 17.5 %; Mean Corpuscular HGB Conc 34.2 g/dL (30-55); Mean Corpuscular Hemoglobin 34.7 pg (27-33); Mean Corpuscular Volume 101.4 fl (82-101); Mean Platelet Volume 9.1 fL (7.4-10.4); Monocytes # 0.5 10^3/uL (0.2-0.9); Monocytes % 3.4 %; Neutrophils # 12.46 10^3/uL (1.8-7.7); Neutrophils % 78.6 %; Nucleated Red Blood Cells % 0 %; Platelet Count 129 10^3/cmm (157-399); Red Cell Distribution Width 13.2 % (12.1-15.1); White Blood Count 15.85 10^3/uL (3.29-11.43)
[2023-06-23 06:31] LABS: Alanine Aminotransferase 22 U/L (0-41); Albumin Level 3.8 g/dL (3.5-5.2); Alkaline Phosphatase 88 U/L (40-130); Anion Gap 15.7 (5-19); Aspartate Amino Transferase 23 U/L (0-40); Blood Urea Nitrogen 17 mg/dL (8-23); Calcium 8.7 mg/dL (8.5-10.5); Carbon Dioxide 23 mmol/L (22-29); Chloride 100 mmol/L (98-107); Globulin 2.6 g/dL (1.3-4.6); Glucose 162 mg/dL (65-115); Osmolality Calculated 283 mOsm/kg (285-295); Potassium 4.7 mmol/L (3.5-5.1); Sodium 134 mmol/L (136-145); Total Bilirubin 2.1 mg/dL (0.15-1.2); Total Protein 6.4 g/dL (6.6-8.7)
[2023-06-23] MEDS: ipratropium-albuterol 3 mL Neb INHALATION ×3 (07:40→20:42)
--- NOTE | 2023-06-23 08:42 | PC.PHAR ---
PT IS [facility] FOR MED LIST 8:30AM 06/23/23
[2023-06-23] MEDS: HYDROcodone-acetaminophen 7.5-325 mg Tablet 1 TAB PO ×2 (08:52→22:30)
[2023-06-23] MEDS: pantoprazole DR 40 mg Tablet PO (08:53)
[2023-06-23] MEDS: metoprolol tartrate 25 mg Tablet PO ×2 (08:53→22:21)
[2023-06-23] MEDS: cefTRIAXone 1,000 MG in sodium chloride 0.9% (plus) 50 ML 100 MG IV ×2 (08:54→20:12)
--- NOTE | 2023-06-23 09:02 | P.PN_ITS ---
Subjective 2 Subjective: Pain controlled. Drain somewhat purulent Vitals/I&O/Wt Last Vital Signs Temp 97.5 F L 06/25/23 07:29 Pulse 62 06/25/23 07:29 Resp 20 H 06/25/23 07:29 BP 136/75 06/25/23 07:29 Pulse Ox 95 06/25/23 07:29 O2 Del Method Room Air 06/25/23 07:29 O2 Flow Rate 2 06/23/23 00:35 06/24/23 06/25/23 06/25/23 22:59 06:59 14:59 Intake Total 370 / 1000 100 / 1100 480 / 480 Output Total 1160 / 1260 1445 / 2705 Balance -790 / -260 -1345 / -1605 480 / 480 Weight last 48 hrs Weight 215 lb 3.2 oz Weight 210 lb 14.4 oz Weight 210 lb 14.4 oz Physical Exam 2 Narrative: Abdomen: Soft, mildly distended, appropriately tender, no guarding rebound or masses Drain:somewhat purulent Urinary Catheter Management: Vickers: Cath Placed During This Visit: yes Reason for Continuing Indwelling Catheter: Acute Urinary Retention or Obstruction Urinary Catheter Date of Insertion: 06/24/23 Urinary Catheter Time of Insertion: 22:06 Data 06/25/23 05:03 06/25/23 05:03 A&P Assessment and plan (1) Acute gangrenous appendicitis: Plan Keep 1 more day in the hospital for IV antibiotics and drainage Attestations 2 Medical Necessity Statement*: Per primary Coding Level of Care Code Acute Code for [facility] Diagnoses Acute gangrenous appendicitis K35.891
--- NOTE | 2023-06-23 14:07 | USCV_ITS ---
Eddy Miner Age: 87 Gender: M : 06/13/1936 Exam Date: 06/23/2023 18:08 Ordering Phys: Macario Cohn MD Technologist: HERNANDEZ Exam Location: [facility] – [place] Indication: short of breath s/p appendectomy today. Hx pacer 2009. Chronic Lower Extremity pitting edema. BP: 107 / 61 HR: 70 Rhythm: Atrial fibrillation Technical Quality: Adequate MEASUREMENTS (Male / Female) Normal Values 2D ECHO LV Diastolic Diameter PLAX 4.2 cm 4.2 - 5.9 / 3.9 - 5.3 cm LV Systolic Diameter PLAX 2.6 cm IVS Diastolic Thickness 1.5 cm 0.6 - 1.0 / 0.6 - 0.9 cm IVS Systolic Thickness 1.8 cm LVPW Diastolic Thickness 1.5 cm 0.6 - 1.0 / 0.6 - 0.9 cm LVPW Systolic Thickness 1.9 cm LV Ejection Fraction 2D Teich 68.2 % LV Ejection Fraction MOD 2C 55.5 % IVC Diameter 2.1 cm M-MODE IVS Diastolic Thickness MM 0.8 cm 0.6 - 1.0 / 0.6 - 0.9 cm LA Ao Ratio MM 1.5 AV Cusp Separation MM 0.9 cm DOPPLER AV Area Cont Eq vti 0.7 cm squared AV Area Cont Eq pk 0.8 cm squared TV Peak Velocity 304.3 cm/s TR Peak Velocity 320.0 cm/s TR Peak Gradient 41.0 mmHg Right Atrial Pressure 10.0 mmHg Pulmonary Artery Systolic Pressu 51.0 mmHg FINDINGS Left Ventricle Left ventricle is normal in size. LV systolic function is normal with EF 55 to 60%. No regional wall motion abnormalities are seen. Right Ventricle Normal in size and function Right Atrium Normal in size. Pacemaker lead is seen. Left Atrium Dilated Mitral Valve Structurally normal mitral valve. Mild mitral regurgitation Aortic Valve Aortic valve is thickened. Severe aortic stenosis with aortic valve area 0.73 cm squared with mean gradient of 22 mmHg. Tricuspid Valve Mild to moderate tricuspid regurgitation. RVSP is 50-55mmHg. This is consistent with moderate pulmonary hypertension Pulmonic Valve Moderate pulmonic regurgitation. Pericardium Small sized pericardial effusion Aorta Normal in size IVC Dilated. CONCLUSIONS LV systolic function is normal with EF 55 to 60%. Pacemaker lead is seen. Left atrial dilation. Mild mitral regurgitation. Severe aortic stenosis with aortic valve area of 0.73 cm squared with mean gradient of 22 mmHg. Mild to moderate tricuspid regurgitation. Moderate pulmonary hypertension Moderate pulmonic regurgitation Small sized pericardial effusion. IVC is dilated. No comparison studies are available Jose Haile MD (Electronically Signed) Final Date: 24 June 2023 09:52 S
[2023-06-23 14:55] LABS: INR 2.08 (0.8-1.2)
--- NOTE | 2023-06-23 15:22 | P.PN_ITS ---
Subjective 2 Subjective: Patient tells me that recently he has been feeling increasingly short of breath, denies any chest pain, no palpitations, his abdominal pain is under control, has a GIA drain in place, has not passed any gas from below, has not had any bowel movement Vitals/I&O/Wt Last Vital Signs Temp 98.3 F 06/23/23 07:56 Pulse 67 06/23/23 13:31 Resp 16 06/23/23 13:25 BP 117/69 06/23/23 11:39 Pulse Ox 95 06/23/23 13:25 O2 Del Method Room Air 06/23/23 13:25 O2 Flow Rate 2 06/23/23 00:35 06/23/23 06/23/23 06/23/23 06:59 14:59 22:59 Intake Total 300 / 450 510 / 510 Output Total 55 / 55 Balance 245 / 395 510 / 510 Weight last 48 hrs Weight 97.607 kg Weight 90.718 kg Weight 90.718 kg Physical Exam 2 Const: COMMON NORMALS: no acute distress and patient oriented x3 Resp: COMMON NORMALS: normal respiratory effort, No retractions, No use of accessory muscles and clear to auscultation bilaterally AUSCULTATION: clear to auscultation bilaterally Cardio: COMMON NORMALS: regular rate, regular rhythm, S1 normal heart sound present and S2 normal heart sound present RATE: regular rate RHYTHM: r egular rhythm HEART SOUNDS: S1 normal heart sound present and S2 normal heart sound present GI: OTHER: Abdomen soft, distended, diminished bowel sounds in all 4 quadrants, no guarding, no rebound, rigidity, does have a GIA drain in place, surgical site with packing on top of bed Extremity: COMMON NORMALS: no pedal edema Neuro: COMMON NORMALS: patient oriented x3 Psych: COMMON NORMALS: mental status grossly normal Data 06/23/23 05:43 06/23/23 05:43 A&P Assessment and plan (1) Acute appendicitis: Status post laparoscopic appendectomy Findings of acute suppurative and gangrenous appendicitis ? Plan, ? Currently on a regular diet ? Serial abdominal exams ? Continue Rocephin and Flagyl next?GIA drain in place ? INR is 2.0, spoke to general surgery resume 3 mg of Coumadin tonight recheck INR in the morning (2) Hyperbilirubinemia: Plan Chronic lower extremity edema Chronic A-fib: Check INR. Continue metoprolol. Pacemaker Hypertension GERD: PPI HLD Insomnia OA Chronic atrial fibrillation COPD: Not in exacerbation. Breathing treatments scheduled and as needed. Shortness of breath, with history of A-fib, will do cardiac echo Requesting to confirm home medications. Please review and reconcile once available. Attestations 2 Medical Necessity Statement*: Patient requires hospitalization for acute appendicitis, requiring inpatient admission for IV antibiotics as patient is acute suppurative and gangrenous appendicitis Diagnoses Acute appendicitis K35.80 Hyperbilirubinemia E80.6
[2023-06-23] MEDS: warfarin 3 mg Tablet PO (17:12)
[2023-06-23] MEDS: gabapentin 100 mg Capsule PO (17:12)
[2023-06-23 22:03] LABS: Platelet Count 142 10^3/cmm (157-399)
[2023-06-23] MEDS: trazodone 50 mg Tablet PO (22:22)
[2023-06-23] MEDS: gabapentin 100 mg Capsule 200 MG PO (22:22)
[2023-06-23 22:25] LABS: INR 2.04 (0.8-1.2)
[2023-06-23 22:26] LABS: Fibrinogen 481 mg/dL (174-498); Partial Thromboplastin Time 42.9 SECONDS (23.9-36.7)
[2023-06-24] VITALS (8 sets, daily range): BP systolic 100–143; BP diastolic 56–84; PULSE 60–70; RESP 16–18; TEMP 36.4–37.2; O2SAT 92–96
[2023-06-24] MEDS: metroNIDAZOLE IV 500 MG/100 ML PREMIX 100 MG IV ×4 (02:15→21:10)
[2023-06-24] MEDS: HYDROmorphone 1 mg/mL INJ 1 mL 0.5 MG IVP (02:22)
[2023-06-24 04:58] LABS: Basophils % 0.1 %; Hematocrit 34.6 % (37-53); Lymphocytes # 2.3 10^3/uL (0.8-4.8); Lymphocytes % 17.2 %; Mean Corpuscular HGB Conc 33.8 g/dL (30-55); Mean Corpuscular Hemoglobin 34.7 pg (27-33); Mean Corpuscular Volume 102.7 fl (82-101); Mean Platelet Volume 9.7 fL (7.4-10.4); Monocytes # 0.9 10^3/uL (0.2-0.9); Monocytes % 6.7 %; Neutrophils % 75.4 %; Nucleated Red Blood Cells % 0 %; Platelet Count 128 10^3/cmm (157-399); Red Blood Count 3.37 10^6/uL (3.85-5.65); Red Cell Distribution Width 13.6 % (12.1-15.1); White Blood Count 13.52 10^3/uL (3.29-11.43)
[2023-06-24 05:13] LABS: INR 2.26 (0.8-1.2)
[2023-06-24 05:27] LABS: Alanine Aminotransferase 20 U/L (0-41); Albumin Level 3.6 g/dL (3.5-5.2); Alkaline Phosphatase 80 U/L (40-130); Anion Gap 15.1 (5-19); Aspartate Amino Transferase 26 U/L (0-40); Blood Urea Nitrogen 33 mg/dL (8-23); Calcium 8.7 mg/dL (8.5-10.5); Carbon Dioxide 24 mmol/L (22-29); Chloride 96 mmol/L (98-107); Globulin 2.6 g/dL (1.3-4.6); Glucose 118 mg/dL (65-115); Osmolality Calculated 278 mOsm/kg (285-295); Potassium 5.1 mmol/L (3.5-5.1); Sodium 130 mmol/L (136-145); Total Bilirubin 1.4 mg/dL (0.15-1.2); Total Protein 6.2 g/dL (6.6-8.7)
[2023-06-24] MEDS: dilTIAZem ER (24HR) 120 mg Capsule PO (06:52)
[2023-06-24] MEDS: ipratropium-albuterol 3 mL Neb INHALATION (08:03)
[2023-06-24] MEDS: pantoprazole DR 40 mg Tablet PO (08:48)
[2023-06-24] MEDS: cefTRIAXone 1,000 MG in sodium chloride 0.9% (plus) 50 ML 100 MG IV ×2 (08:48→20:18)
[2023-06-24] MEDS: gabapentin 100 mg Capsule PO (08:48)
[2023-06-24] MEDS: aspirin 81 mg EC Tablet PO (08:49)
[2023-06-24] MEDS: dutasteride 0.5 mg Capsule PO (08:49)
[2023-06-24] MEDS: metoprolol tartrate 25 mg Tablet PO ×2 (09:01→20:17)
[2023-06-24] MEDS: tamsulosin 0.4 mg Capsule PO (09:01)
--- NOTE | 2023-06-24 09:13 | PM.PN ---
Subjective Subjective: Patient seen and examined. Pain controlled. Tolerated diet Vitals/I&O/Wt Last Vital Signs Temp 97.5 F L 06/25/23 07:29 Pulse 62 06/25/23 07:29 Resp 20 H 06/25/23 07:29 BP 136/75 06/25/23 07:29 Pulse Ox 95 06/25/23 07:29 O2 Del Method Room Air 06/25/23 07:29 O2 Flow Rate 2 06/23/23 00:35 06/24/23 06/25/23 06/25/23 22:59 06:59 14:59 Intake Total 370 / 1000 100 / 1100 480 / 480 Output Total 1160 / 1260 1445 / 2705 Balance -790 / -260 -1345 / -1605 480 / 480 Weight last 48 hrs Weight 215 lb 3.2 oz Weight 210 lb 14.4 oz Weight 210 lb 14.4 oz Physical Exam Narrative: Abdomen: Soft, mildly distended, appropriately tender Drain: Serosanguineous, greater than 200 cc output Urinary Catheter Management: Vickers: Cath Placed During This Visit: yes Reason for Continuing Indwelling Catheter: Acute Urinary Retention or Obstruction Urinary Catheter Date of Insertion: 06/24/23 Urinary Catheter Time of Insertion: 22:06 Data 06/25/23 05:03 06/25/23 05:03 A&P Assessment and plan (1) Acute gangrenous appendicitis: Plan Keep 1 more day in the hospital for IV antibiotics and drainage Attestations Medical Necessity Statement*: Per primary Coding Level of Care Code Acute Code for [facility] Diagnoses Acute gangrenous appendicitis K35.891
[2023-06-24] MEDS: HYDROcodone-acetaminophen 7.5-325 mg Tablet 1 TAB PO ×2 (10:52→17:31)
[2023-06-24] MEDS: warfarin 3 mg Tablet PO (13:20)
[2023-06-24] MEDS: polyethylene glycol 3350 Pkt 17 gm PO (13:20)
--- NOTE | 2023-06-24 13:24 | P.PN_ITS ---
Subjective 2 Subjective: Patient was seen this morning, he reports no fevers, no chills, no cough, no abdominal pain he did have urinary retention requiring the placement of Vickers catheter has been started on Flomax Vitals/I&O/Wt Last Vital Signs Temp 97.6 F 06/24/23 11:02 Pulse 60 06/24/23 11:02 Resp 16 06/24/23 11:02 BP 143/84 06/24/23 11:02 Pulse Ox 96 06/24/23 11:02 O2 Del Method Room Air 06/24/23 11:02 O2 Flow Rate 2 06/23/23 00:35 06/23/23 06/24/23 06/24/23 22:59 06:59 14:59 Intake Total 370 / 880 100 / 980 630 / 630 Output Total 1200 / 1200 275 / 1475 100 / 100 Balance -830 / -320 -175 / -495 530 / 530 Weight last 48 hrs Weight 95.663 kg Weight 95.663 kg Weight 97.607 kg Weight 90.718 kg Weight 90.718 kg Physical Exam 2 Const: COMMON NORMALS: no acute distress and patient oriented x3 Resp: COMMON NORMALS: normal respiratory effort, No retractions, No use of accessory muscles and clear to auscultation bilaterally AUSCULTATION: clear to auscultation bilaterally Cardio: COMMON NORMALS: regular rate, regular rhythm, S1 normal heart sound present and S2 normal heart sound present RATE: regular rate RHYTHM: r egular rhythm HEART SOUNDS: S1 normal heart sound present and S2 normal heart sound present GI: COMMON NORMALS: Normal to inspection, nondistended, normoactive bowel sounds present and non-tender Extremity: COMMON NORMALS: no pedal edema Neuro: COMMON NORMALS: patient oriented x3 Psych: COMMON NORMALS: mental status grossly normal Data 06/24/23 04:15 06/24/23 04:15 A&P Assessment and plan (1) Acute appendicitis: Status post laparoscopic appendectomy Findings of acute suppurative and gangrenous appendicitis ? Plan, ? Currently on a regular diet ? Serial abdominal exams ? Continue Rocephin and Flagyl next?GIA drain in place ? INR is 2.26 -Serum sodium 130, encourage p.o. intake of fluids -Creatinine 1.3, monitor (2) Hyperbilirubinemia: Plan Chronic lower extremity edema Chronic A-fib: Check INR. Continue metoprolol. Pacemaker Hypertension GERD: PPI HLD Insomnia OA Chronic atrial fibrillation COPD: Not in exacerbation. Breathing treatments scheduled and as needed. Shortness of breath, with history of A-fib, will do cardiac echo Echocardiogram, shows severe aortic stenosis, needs to follow-up with cardiology as outpatient Requesting to confirm home medications. Please review and reconcile once available. Attestations 2 Medical Necessity Statement*: Patient requires hospitalization for acute appendicitis requiring IV antibiotics Diagnoses Acute appendicitis K35.80 Hyperbilirubinemia E80.6
[2023-06-24] MEDS: gabapentin 100 mg Capsule 200 MG PO (20:17)
[2023-06-24] MEDS: trazodone 50 mg Tablet PO (20:18)
[2023-06-25] VITALS (9 sets, daily range): BP systolic 104–136; BP diastolic 64–79; PULSE 60–68; RESP 14–20; TEMP 36.4–36.8; O2SAT 91–98; BMI 29.9
[2023-06-25] MEDS: metroNIDAZOLE IV 500 MG/100 ML PREMIX 100 MG IV ×4 (02:13→22:57)
[2023-06-25 05:35] LABS: Basophils % 0.1 %; Eosinophils % 0.4 %; Hematocrit 34.2 % (37-53); Lymphocytes # 3.6 10^3/uL (0.8-4.8); Lymphocytes % 32.9 %; Mean Corpuscular HGB Conc 33.9 g/dL (30-55); Mean Corpuscular Hemoglobin 34.8 pg (27-33); Mean Corpuscular Volume 102.7 fl (82-101); Mean Platelet Volume 9.4 fL (7.4-10.4); Monocytes # 0.7 10^3/uL (0.2-0.9); Monocytes % 6.4 %; Neutrophils # 6.53 10^3/uL (1.8-7.7); Neutrophils % 59.8 %; Nucleated Red Blood Cells % 0 %; Platelet Count 146 10^3/cmm (157-399); Red Blood Count 3.33 10^6/uL (3.85-5.65); Red Cell Distribution Width 13.3 % (12.1-15.1); White Blood Count 10.91 10^3/uL (3.29-11.43)
[2023-06-25 05:50] LABS: INR 2.51 (0.8-1.2)
[2023-06-25 06:02] LABS: Alanine Aminotransferase 22 U/L (0-41); Albumin Level 3.4 g/dL (3.5-5.2); Alkaline Phosphatase 73 U/L (40-130); Anion Gap 13.7 (5-19); Aspartate Amino Transferase 27 U/L (0-40); Blood Urea Nitrogen 30 mg/dL (8-23); Calcium 8.6 mg/dL (8.5-10.5); Carbon Dioxide 25 mmol/L (22-29); Chloride 95 mmol/L (98-107); Globulin 2.3 g/dL (1.3-4.6); Glucose 106 mg/dL (65-115); Osmolality Calculated 275 mOsm/kg (285-295); Potassium 4.7 mmol/L (3.5-5.1); Sodium 129 mmol/L (136-145); Total Protein 5.7 g/dL (6.6-8.7)
[2023-06-25] MEDS: dilTIAZem ER (24HR) 120 mg Capsule PO (06:17)
[2023-06-25 08:57] LABS: NT Pro B Type Natriuretic Pept 1779 pg/mL (0-450)
[2023-06-25] MEDS: pantoprazole DR 40 mg Tablet PO (10:38)
[2023-06-25] MEDS: gabapentin 100 mg Capsule PO (10:38)
[2023-06-25] MEDS: dutasteride 0.5 mg Capsule PO (10:38)
[2023-06-25] MEDS: metoprolol tartrate 25 mg Tablet PO ×2 (10:38→20:48)
[2023-06-25] MEDS: tamsulosin 0.4 mg Capsule PO (10:38)
[2023-06-25] MEDS: aspirin 81 mg EC Tablet PO (10:39)
[2023-06-25] MEDS: polyethylene glycol 3350 Pkt 17 gm PO (10:39)
[2023-06-25] MEDS: cefTRIAXone 1,000 MG in sodium chloride 0.9% (plus) 50 ML 100 MG IV ×2 (10:40→22:20)
[2023-06-25] MEDS: HYDROcodone-acetaminophen 7.5-325 mg Tablet 1 TAB PO ×2 (10:42→22:57)
--- NOTE | 2023-06-25 11:25 | PC.SOCIAL ---
IMM Update pg 2 of IMM updated and reviewed w/ patient. Copy provided and copy dated, initialed and placed in chart.
[2023-06-25] MEDS: warfarin 3 mg Tablet PO (13:08)
[2023-06-25 13:49] LABS: Sodium 128 mmol/L (136-145)
--- NOTE | 2023-06-25 14:26 | P.PN_ITS ---
Subjective 2 Subjective: Patient seen and examined. Pain controlled. Passing flatus and tolerating diet. Vitals/I&O/Wt Last Vital Signs Temp 97.8 F 06/25/23 11:30 Pulse 62 06/25/23 11:30 Resp 19 H 06/25/23 11:30 BP 134/79 06/25/23 11:30 Pulse Ox 96 06/25/23 11:30 O2 Del Method Room Air 06/25/23 11:30 O2 Flow Rate 2 06/25/23 08:00 06/24/23 06/25/23 06/25/23 22:59 06:59 14:59 Intake Total 370 / 1000 100 / 1100 1110 / 1110 Output Total 1160 / 1260 1445 / 2705 Balance -790 / -260 -1345 / -1605 1110 / 1110 Weight last 48 hrs Weight 215 lb 3.2 oz Weight 210 lb 14.4 oz Weight 210 lb 14.4 oz Physical Exam 2 Narrative: Abdomen: Soft, mildly distended, appropriately tender Drain serous Urinary Catheter Management: Vickers: Cath Placed During This Visit: yes Reason for Continuing Indwelling Catheter: Acute Urinary Retention or Obstruction Urinary Catheter Date of Insertion: 06/24/23 Urinary Catheter Time of Insertion: 22:06 Data 06/25/23 05:03 06/25/23 13:22 A&P Assessment and plan (1) Acute gangrenous appendicitis: Plan DC GIA drain Surgically stable for discharge Antibiotics and opioids given Follow-up my office in 2 weeks Do not soak incisions underwater for 2 weeks. Shower daily. Attestations 2 Medical Necessity Statement*: Per primary Coding Level of Care Code Acute Code for [facility] Diagnoses Acute gangrenous appendicitis K35.891
--- NOTE | 2023-06-25 16:37 | P.PN_ITS ---
Subjective 2 Subjective: Patient was seen this morning, is at bedside he is alert oriented x 3, following all commands he does have intermittent episodes of confusion which his notices and I noticed during our conversation frequently requires repeating questions, he repeats a lot of his sentences, no facial no slurring of his words, we discussed his hyponatremia serum sodium 129, encourage p.o. intake recheck serum sodium, he feels his residual voiding trial yesterday evening, will keep the Vickers catheter discussed his echocardiogram findings, with his finding of aortic stenosis, he will likely need to follow-up with cardiology as outpatient this could potentially be a reason why he is short of breath and why he has been having episodes of vertigo and dizziness Vitals/I&O/Wt Last Vital Signs Temp 97.6 F 06/25/23 15:28 Pulse 68 06/25/23 15:28 Resp 14 06/25/23 15:28 BP 117/72 06/25/23 15:28 Pulse Ox 91 06/25/23 15:28 O2 Del Method Room Air 06/25/23 15:28 O2 Flow Rate 2 06/25/23 08:00 06/25/23 06/25/23 06/25/23 06:59 14:59 22:59 Intake Total 100 / 1100 1110 / 1110 Output Total 1445 / 2705 30 / 30 Balance -1345 / -1605 1080 / 1080 Weight last 48 hrs Weight 97.613 kg Weight 95.663 kg Weight 95.663 kg Physical Exam 2 Const: COMMON NORMALS: no acute distress and patient oriented x3 Resp: COMMON NORMALS: normal respiratory effort, No retractions, No use of accessory muscles and clear to auscultation bilaterally AUSCULTATION: clear to auscultation bilaterally Cardio: COMMON NORMALS: regular rate, regular rhythm, S1 normal heart sound present and S2 normal heart sound present RATE: regular rate RHYTHM: r egular rhythm HEART SOUNDS: S1 normal heart sound present and S2 normal heart sound present GI: COMMON NORMALS: Normal to inspection, nondistended, normoactive bowel sounds present and non-tender OTHER: Surgical site looks clean and dry Extremity: COMMON NORMALS: no pedal edema Neuro: COMMON NORMALS: patient oriented x3 Psych: COMMON NORMALS: mental status grossly normal Urinary Catheter Management: Vickers: Cath Placed During This Visit: yes Reason for Continuing Indwelling Catheter: Acute Urinary Retention or Obstruction Urinary Catheter Date of Insertion: 06/24/23 Urinary Catheter Time of Insertion: 22:06 Data 06/25/23 05:03 06/25/23 13:22 A&P Assessment and plan (1) Acute appendicitis: Status post laparoscopic appendectomy Findings of acute suppurative and gangrenous appendicitis ? Plan, ? Currently on a regular diet ? Serial abdominal exams ? Continue Rocephin and Flagyl ? INR monitoring -Acute encephalopathy, likely secondary to hyponatremia, will avoid fluid as IVC is dilated on echocardiogram, will encourage p.o. intake, monitor serum sodium, potentially hyponatremia is related to heart failure will consider Lasix after liberal fluid intake for 24 hours -Severe aortic stenosis, will need to follow-up with cardiology as outpatient (2) Hyperbilirubinemia: (3) Acute hyponatremia: (4) Acute encephalopathy: (5) Severe aortic stenosis: Plan Chronic lower extremity edema Chronic A-fib: Check INR. Continue metoprolol. Pacemaker Hypertension GERD: PPI HLD Insomnia OA Chronic atrial fibrillation COPD: Not in exacerbation. Breathing treatments scheduled and as needed. Shortness of breath, with history of A-fib, will do cardiac echo Echocardiogram, shows severe aortic stenosis, needs to follow-up with cardiology as outpatient Requesting to confirm home medications. Please review and reconcile once available. Attestations 2 Medical Necessity Statement*: Patient requires hospitalization for hyponatremia, acute encephalopathy, Diagnoses Acute appendicitis K35.80 Hyperbilirubinemia E80.6 Acute hyponatremia E87.1 Acute encephalopathy G93.40 Severe aortic stenosis I35.0
[2023-06-25] MEDS: trazodone 50 mg Tablet PO (20:48)
[2023-06-25] MEDS: gabapentin 100 mg Capsule 200 MG PO (20:48)
[2023-06-25] MEDS: ipratropium-albuterol 3 mL Neb INHALATION (22:45)
[2023-06-26] VITALS (7 sets, daily range): BP systolic 102–122; BP diastolic 57–70; PULSE 58–71; RESP 16–18; TEMP 36.3–36.6; O2SAT 93–96
[2023-06-26 04:17] LABS: Basophils % 0.2 %; Eosinophils # 0.2 10^3/uL (0.0-0.8); Eosinophils % 1.7 %; Hematocrit 34.8 % (37-53); Lymphocytes # 3.3 10^3/uL (0.8-4.8); Lymphocytes % 38.2 %; Mean Corpuscular HGB Conc 33.6 g/dL (30-55); Mean Corpuscular Hemoglobin 34.4 pg (27-33); Mean Corpuscular Volume 102.4 fl (82-101); Mean Platelet Volume 9.3 fL (7.4-10.4); Monocytes # 0.7 10^3/uL (0.2-0.9); Monocytes % 8.5 %; Neutrophils # 4.45 10^3/uL (1.8-7.7); Neutrophils % 51.1 %; Nucleated Red Blood Cells % 0 %; Platelet Count 170 10^3/cmm (157-399); Red Cell Distribution Width 13.2 % (12.1-15.1); White Blood Count 8.72 10^3/uL (3.29-11.43)
[2023-06-26 04:35] LABS: Alanine Aminotransferase 21 U/L (0-41); Albumin Level 3.3 g/dL (3.5-5.2); Alkaline Phosphatase 79 U/L (40-130); Anion Gap 12.4 (5-19); Aspartate Amino Transferase 23 U/L (0-40); Blood Urea Nitrogen 23 mg/dL (8-23); C Reactive Protein 93.4 mg/L (0.0-4.9); Calcium 8.8 mg/dL (8.5-10.5); Carbon Dioxide 26 mmol/L (22-29); Chloride 95 mmol/L (98-107); Globulin 2.4 g/dL (1.3-4.6); Glucose 101 mg/dL (65-115); Magnesium 2.1 mg/dL (1.7-2.3); Osmolality Calculated 272 mOsm/kg (285-295); Potassium 4.4 mmol/L (3.5-5.1); Sodium 129 mmol/L (136-145); Total Bilirubin 1.2 mg/dL (0.15-1.2); Total Protein 5.7 g/dL (6.6-8.7)
[2023-06-26] MEDS: metroNIDAZOLE IV 500 MG/100 ML PREMIX 100 MG IV (04:42)
[2023-06-26 04:43] LABS: NT Pro B Type Natriuretic Pept 1654 pg/mL (0-450); Procalcitonin 0.23 ng/mL (0-0.5)
[2023-06-26] MEDS: dilTIAZem ER (24HR) 120 mg Capsule PO (06:29)
[2023-06-26] MEDS: polyethylene glycol 3350 Pkt 17 gm PO (08:22)
[2023-06-26] MEDS: metoprolol tartrate 25 mg Tablet PO (08:23)
[2023-06-26] MEDS: dutasteride 0.5 mg Capsule PO (08:23)
[2023-06-26] MEDS: aspirin 81 mg EC Tablet PO (08:26)
[2023-06-26] MEDS: tamsulosin 0.4 mg Capsule PO (08:26)
[2023-06-26] MEDS: pantoprazole DR 40 mg Tablet PO (08:26)
[2023-06-26] MEDS: gabapentin 100 mg Capsule PO (08:26)
--- NOTE | 2023-06-26 12:48 | P.DS_ITS ---
Discharge Providers Date of Admission: 06/22/23 21:55 Date of Discharge: June 26, 2023 Attending Provider at Admission: Vish Bautista DO Attending Provider at Discharge: Macario Cohn MD Primary Care Provider: Shayla Mesa MD Diagnoses at Discharge Discharge Diagnosis (1) Acute appendicitis: Status: Acute (2) Hyperbilirubinemia: Status: Acute (3) Acute hyponatremia: Status: Acute (4) Acute encephalopathy: Status: Acute (5) Severe aortic stenosis: Status: Acute Reason for Visit Reason for Visit: abd pain, fever, Hospital Course Hospital Course Pleasant 87-year-old gentleman with history of chronic/recurrent lower extremity pitting/nonpitting edema, pacemaker, hypertension, he states he recently had a stress test, he has not been having any chest pain, he states he has been quite active, normally goes on frequent walks. Walks are sometimes limited by pain in his feet due to bunions and other problems. Stress test looks like was done back in January 2023 and was normal. He presented to ER with right lower quadrant abdominal pain, nausea. In ER with leukocytosis 14.55, no other SIRS/sepsis signs. Noted some hyperbilirubinemia 1.8, normal alk phos, normal transaminases, normal lipase. CT abdomen pelvis showed normal gallbladder, no ductal dilation no calcified stones. He is noted to have dilated appendix 12.55 mm surrounding edema consistent with acute appendicitis with apparent appendicolith at the base. Incidentally noted prostate gland enlargement indenting the base of the urinary bladder. Incidentally seen emphysematous changes in the lungs. Inguinal hernias. Surgery was contacted in ER. Hospitalist called for admission request. Patient was admitted to [facility] for acute appendicitis, received antibiotics, status post laparoscopic appendectomy, findings of acute suppurative and gangrenous appendicitis, received IV antibiotics, overall clinically improved, discharged on antibiotics and pain control as per surgery for patient's atrial fibrillation, INR on discharge is 3, discharged on Coumadin 3 mg once daily would recheck INR on Wednesday Patient had hyponatremia during his hospitalization likely secondary to poor oral intake dehydration, serum sodium on discharge was 129, mentation is back to baseline alert oriented x 3, following all commands recheck serum sodium on Wednesday through primary care For patient's complaints of dizziness, shortness of breath he was found to have severe aortic stenosis, follow-up with cardiology as outpatient, follow-up with [facility] as outpatient, For his urinary retention discharged on Flomax,, Ritchie catheter placed due to urinary retention follow-up with urology in 2 weeks for removal of Ritchie catheter Physical Exam Const: COMMON NORMALS: no acute distress and patient oriented x3 Resp: COMMON NORMALS: normal respiratory effort, No retractions, No use of accessory muscles and clear to auscultation bilaterally AUSCULTATION: clear to auscultation bilaterally Cardio: COMMON NORMALS: regular rate, regular rhythm, S1 normal heart sound present and S2 normal heart sound present RATE: regular rate RHYTHM: regular rhythm HEART SOUNDS: S1 normal heart sound present and S2 normal heart sound present GI: COMMON NORMALS: Normal to inspection, nondistended, normoactive bowel sounds present and non-tender OTHER: surgical site looks clean and dry, GIA drain removed Extremity: COMMON NORMALS: no calf tenderness and no pedal edema Neuro: COMMON NORMALS: patient oriented x3 Psych: COMMON NORMALS: mental status grossly normal Urinary Catheter Management: Ritchie: Cath Placed During This Visit: yes Reason for Continuing Indwelling Catheter: Acute Urinary Retention or Obstruction Urinary Catheter Date of Insertion: 06/24/23 Urinary Catheter Time of Insertion: 22:06 Discharge Data Studies Completed and Pending Completed Studies During Hospitalization Category Date Time Status CT abdomen pelvis wo con [id number] Stat Cat Scan 06/22/23 17:30 Completed CV. echo complete* [id number] Routine Ultrasound 06/23/23 14:07 Completed Pending at discharge Category Date Time Status C Reactive Protein AM LABS Lab 06/27/23 04:00 Ordered C Reactive Protein AM LABS Lab 06/28/23 04:00 Ordered Complete Blood Count w/Auto AM LABS Lab 06/27/23 04:00 Ordered Complete Blood Count w/Auto AM LABS Lab 06/28/23 04:00 Ordered Comprehensive Metabolic Panel AM LABS Lab 06/27/23 04:00 Ordered Comprehensive Metabolic Panel AM LABS Lab 06/28/23 04:00 Ordered Magnesium AM LABS Lab 06/27/23 04:00 Ordered Magnesium AM LABS Lab 06/28/23 04:00 Ordered NT Pro B Type Natriuretic Pept QAM Lab 06/27/23 06:00 Ordered NT Pro B Type Natriuretic Pept QAM Lab 06/28/23 06:00 Ordered Procalcitonin AM LABS Lab 06/27/23 04:00 Ordered Procalcitonin AM LABS Lab 06/28/23 04:00 Ordered Pathology: Surgical [PTH] Routine Pth 06/22/23 23:54 Received Radiology Impressions Abdomen/Pelvis CT 06/22/23 17:30 IMPRESSION: 1. Appendix dilated to 12.5 mm with surrounding edema consistent with acute appendicitis with an apparent appendicolith at the base. 2. Prostate gland enlarged indenting the base of the urinary bladder, please correlate clinically. 3. Moderate bilateral fat containing inguinal hernias without bowel or inflammation. 4. Emphysematous changes. 5. Right kidney cyst, negative for follow up. 6. Right renal hilum vascular calcification. ADDENDUM: 06/22/231916 THIS REPORT CONTAINS FINDINGS THAT MAY BE CRITICAL TO PATIENT CARE. The findings were verbally communicated via telephone conference with Dr. Fajardo at 7:15 PM FLIGHT CONTROL SPECIALIST on 06/22/2023. The findings were acknowledged and understood. Laboratory Results WBC 8.72 10^3/uL (3.29-11.43) 06/26/23 03:30 RBC 3.40 10^6/uL (3.85-5.65) L 06/26/23 03:30 Hgb 11.70 g/dL (11.27-16.99) 06/26/23 03:30 Hct 34.8 % (37-53) L 06/26/23 03:30 MCV 102.4 fl (82-101) H 06/26/23 03:30 MCH 34.4 pg (27-33) H 06/26/23 03:30 MCHC 33.6 g/dL (30-55) 06/26/23 03:30 RDW 13.2 % (12.1-15.1) 06/26/23 03:30 Plt Count 170 10^3/cmm (157-399) 06/26/23 03:30 MPV 9.3 fL (7.4-10.4) 06/26/23 03:30 Neut % (Auto) 51.1 % 06/26/23 03:30 Lymph % (Auto) 38.2 % 06/26/23 03:30 [place] % (Auto) 8.5 % 06/26/23 03:30 Eos % (Auto) 1.7 % 06/26/23 03:30 Baso % (Auto) 0.2 % 06/26/23 03:30 Neut # (Auto) 4.45 10^3/uL (1.8-7.7) 06/26/23 03:30 Lymph # (Auto) 3.3 10^3/uL (0.8-4.8) 06/26/23 03:30 [place] # (Auto) 0.7 10^3/uL (0.2-0.9) 06/26/23 03:30 Eos # (Auto) 0.2 10^3/uL (0.0-0.8) 06/26/23 03:30 Baso # (Auto) 0.0 10^3/uL (0.0-0.1) 06/26/23 03:30 Nucleated RBC % (auto) 0 % 06/26/23 03:30 Nucleated RBCs # 0.0 /100WBC 06/26/23 03:30 PT 32.30 SECONDS (12.1-14.9) H 06/26/23 03:30 INR 3.00 (0.8-1.2) H 06/26/23 03:30 APTT 42.9 SECONDS (23.9-36.7) H 06/23/23 21:44 Fibrinogen 481 mg/dL (174-498) 06/23/23 21:44 Sodium 129 mmol/L (136-145) L 06/26/23 03:30 Potassium 4.4 mmol/L (3.5-5.1) 06/26/23 03:30 Chloride 95 mmol/L (98-107) L 06/26/23 03:30 Carbon Dioxide 26 mmol/L (22-29) 06/26/23 03:30 Anion Gap 12.4 (5-19) 06/26/23 03:30 BUN 23 mg/dL (8-23) 06/26/23 03:30 Creatinine 1.1 mg/dL (0.7-1.2) 06/26/23 03:30 GFR Calculation Not Reportable 06/26/23 03:30 Glucose 101 mg/dL (65-115) 06/26/23 03:30 Calculated Osmolality 272 mOsm/kg (285-295) L 06/26/23 03:30 Calcium 8.8 mg/dL (8.5-10.5) 06/26/23 03:30 Magnesium 2.1 mg/dL (1.7-2.3) 06/26/23 03:30 Total Bilirubin 1.2 mg/dL (0.15-1.2) 06/26/23 03:30 AST 23 U/L (0-40) 06/26/23 03:30 ALT 21 U/L (0-41) 06/26/23 03:30 Alkaline Phosphatase 79 U/L (40-130) 06/26/23 03:30 Troponin T 5th Gen ng/L 30 ng/L (0-15) H 06/22/23 21:08 C-Reactive Protein 93.4 mg/L (0.0-4.9) H 06/26/23 03:30 NT-Pro-B Natriuret Pep 1654 pg/mL (0-450) H 06/26/23 03:30 Total Protein 5.7 g/dL (6.6-8.7) L 06/26/23 03:30 Albumin 3.3 g/dL (3.5-5.2) L 06/26/23 03:30 Globulin 2.4 g/dL (1.3-4.6) 06/26/23 03:30 Lipase 17 U/L (13-60) 06/22/23 17:43 Procalcitonin 0.23 ng/mL (0-0.5) 06/26/23 03:30 Urine Color Yellow (Yellow) 06/22/23 22:10 Urine Appearance Clear (CLEAR) 06/22/23 22:10 Urine pH 7 (5-7) 06/22/23 22:10 Ur Specific [place] 1.010 (1.005-1.030) 06/22/23 22:10 Urine Protein Trace (Negative) 06/22/23 22:10 Urine Glucose (UA) Norm (Normal) 06/22/23 22:10 Urine Ketones Negative (Negative) 06/22/23 22:10 Urine Blood Neg (Negative) 06/22/23 22:10 Urine Nitrate Negative (Negative) 06/22/23 22:10 Urine Bilirubin Neg (Negative) 06/22/23 22:10 Urine Urobilinogen Neg mg/dL (Negative) 06/22/23 22:10 Ur Leukocyte Esterase Negative (Negative) 06/22/23 22:10 Urine RBC None /hpf (0-2) 06/22/23 22:10 Urine WBC None /hpf (0-5) 06/22/23 22:10 Ur Squamous Epith Cells None /hpf (0-5) 06/22/23 22:10 Amorphous Sediment Not Reportable 06/22/23 22:10 Urine Bacteria None /hpf (NONE) 06/22/23 22:10 Urine Mucus Trace /hpf 06/22/23 22:10 Blood Type O Positive 06/22/23 21:24 Rho(D) Type Rh positive 06/22/23 21:24 Antibody Screen Negative 06/22/23 21:24 Vitals Last Vital Signs Temp 97.4 F L 06/26/23 07:46 Pulse 59 L 06/26/23 12:00 Resp 16 06/26/23 12:00 BP 102/57 06/26/23 12:00 Pulse Ox 93 06/26/23 12:00 O2 Del Method Room Air 06/26/23 12:00 O2 Flow Rate 2 06/25/23 08:00 Discharge Plan Discharge Patient Disposition: Home Condition: Stable Prescriptions: New clindamycin HCl 150 mg capsule 150 mg PO QID 7 Days Qty: 28 0RF hydrocodone-acetaminophen 7.5-325 mg tablet 1 tab PO Q6H PRN (Reason: pain) Qty: 20 0RF Colace 100 mg capsule 100 mg PO BID Qty: 14 0RF tamsulosin [Flomax] 0.4 mg capsule 0.4 mg PO DAILY 30 Days Qty: 30 0RF Continued dutasteride 0.5 mg capsule 0.5 mg PO DAILY montelukast 10 mg tablet 10 mg PO QPM omeprazole 20 mg tablet,delayed release (DR/EC) 20 mg PO DAILY trazodone 50 mg tablet 50 mg PO BEDTIME fluticasone propionate 50 mcg/actuation spray,suspension 2 spray intranasal DAILY PRN (Reason: allergies) Rx Instructions: administer into each nostril gabapentin 100 mg capsule See Rx Instructions .ROUTE .COMPLEX Rx Instructions: TAKE 1 CAPSULE BY MOUTH ONCE DAILY AND 2 CAPSULES IN THE EVENING FOR NERVE PAIN. loratadine 10 mg tablet 10 mg PO DAILY PRN (Reason: allergies) mupirocin 2 % ointment 1 applic topical BID PRN (Reason: Rash) Rx Instructions: Apply to affected area(s) until healed. apply to face metoprolol tartrate 25 mg tablet 25 mg PO BID Qty: 180 3RF albuterol sulfate [ProAir HFA] 90 mcg/actuation HFA aerosol inhaler 2 puff inhalation BID aspirin [Adult Low Dose Aspirin] 81 mg tablet,delayed release (DR/EC) 81 mg PO DAILY (DME) Custom Molded Copolymer Orthotics and Orthopedic Shoes See Rx Instructions .Route .MEDSUPPLY Qty: 1 0RF Rx Instructions: As directed [employer] [facility] triamcinolone acetonide 0.5 % cream 1 applic topical BID Qty: 15 0RF Rx Instructions: apply to face ferrous sulfate [Iron (ferrous sulfate)] 325 mg (65 mg iron) Tablet 325 mg PO DAILY diltiazem HCl 120 mg capsule,extended release 24hr 120 mg PO QAM alpha lipoic acid 250 mg Capsule 250 mg PO DAILY cyclobenzaprine 10 mg Tablet 10 mg PO TID PRN (Reason: Muscle Spasm) clobetasol 0.05 % Cream See Rx Instructions .ROUTE .COMPLEX Rx Instructions: APPLY SPARINGLY TO AFFECTED AREA(S) TOPICALLY TWICE DAILY TO RASH ON HANDS UNTIL RESOLVED. DO NOT APPLY TO FACE, GROIN OR SKIN FOLDS. melatonin 3 mg Tablet 6 mg PO BEDTIME PRN (Reason: Sleep) warfarin 1 mg Tablet 3.2 mg PO DAILY olodaterol 2.5 mcg/actuation Mist 1 inh INHALATION DAILY mometasone 200 mcg/actuation Hfa Aerosol Inhaler 1 puff INHALATION BID multivitamin Tablet 1 tab PO DAILY vitamin A 2,400 mcg Capsule 2,400 mcg PO DAILY potassium 99 mg Tablet 99 mg PO BEDTIME saw palmetto 160 mg Capsule 160 mg PO TID Rx Instructions: give with meal/snack vitamin B complex Capsule 1 cap PO DAILY cholecalciferol (vitamin D3) [Vitamin D3] 25 mcg (1,000 unit) Capsule 25 mcg PO DAILY coenzyme Q10 100 mg Capsule 200 mg PO DAILY glucosamine-chondroitin [Osteo Bi-Flex] 250-200 mg Tablet 1 tab PO BID Rx Instructions: give after food/meal morning and evening acetylcarnitine HCl 250 mg Capsule 250 mg PO DAILY Romie Mag Zinc Plus D3 333 mg-133 unit -133 mg-5 mg Tablet 1 tab PO BID Rx Instructions: mornings and evenings turmeric 400 mg Capsule 400 mg PO BID ashwagandha root extract 300 mg Capsule 300 mg PO DAILY Changed warfarin 3 mg tablet See Rx Instructions .ROUTE .COMPLEX Qty: 30 0RF Rx Instructions: 3 mg orally daily Discharge Orders: Discharge Order (Routine); Ordered 06/26/23 Ordered By: Macario Cohn Referrals: Quinton Parra MD [Referring] - 1 week (ritchie in place, removal of ritchie) Antonio Serrano [Referring] - 7-10 days (We have notified your physician's clinic of the need for a follow-up appointment to be scheduled. If you have not heard from them within the next 2 business days, please call them directly. ) Vish Bautista DO [Physician] - 2 weeks (We have notified your physician's clinic of the need for a follow-up appointment to be scheduled. If you have not heard from them within the next 2 business days, please call them directly. ) Shayla Mesa MD [Primary Care Provider] - 4-7 days (We have notified your physician's clinic of the need for a follow-up appointment to be scheduled. If you have not heard from them within the next 2 business days, please call them directly. ) Jose Haile M.D [Physician] - 1 week (We have notified your physician's clinic of the need for a follow-up appointment to be scheduled. If you have not heard from them within the next 2 business days, please call them directly. ) Quinton Corrales MD [Referring] - 1 month (aortic stenosis We have notified your physician's clinic of the need for a follow-up appointment to be scheduled. If you have not heard from them within the next 2 business days, please call them directly. ) Discharge Diet: Cardiac Discharge Activity: Resume usual activity Patient Instructions: Clindamycin (By mouth), Hydrocodone/Acetaminophen (By mouth), Laxative, Stool Softeners (By mouth), Urinary Retention in Men (GEN), Ritchie Catheter Placement and Care (GEN), Laparoscopic Appendectomy (GEN), Opioid Safety Activity Restrictions/Additional Instructions: - Please see your primary care provider on Wednesday for recheck hemoglobin -Please see your primary care provider on Wednesday for recheck serum sodium, serum sodium on discharge was 129, please hydrate well drink electrolyte balanced fluids -For Coumadin continue 3 mg once daily, recheck your INR through primary care on Wednesday -Appointment has been made with urology in [place] - Discharge Attestations Time Spent in Discharge Care*: greater than 30 min Quality Metrics Clinical Quality Measures [ No reported AMI, CVA or VTE this stay] Coding Level of Care Code 90893 Total time (in minutes) for Discharge: 45 Diagnoses Acute appendicitis K35.80 Hyperbilirubinemia E80.6 Acute hyponatremia E87.1 Acute encephalopathy G93.40 Severe aortic stenosis I35.0
--- NOTE | 2023-06-26 12:49 | PC.NURSE ---
Dr. Cohn gave verbal order for patient to take Clindamycin at home.
--- NOTE | 2023-06-26 15:40 | PC.NURSE ---
Discussed discharge orders including follow up appointments, new medications, discontinued and continued medications with patient. Keep dressing clean and dry. Spouse picked medication up at pharmacy 06/25/2023. Verbalized understanding from both parties.
== END 2023-06-26 15:44 | disposition home or self-care (01) | DRG 397 ==
LOC: ER 19:58 → OR 20:51 → MEDSURG 21:56
PROVIDERS: Emergency Medicine; Internal Medicine; Admitting Provider Surgery; Emergency Provider Internal Medicine; PCP Family Medicine; Visit Provider Family Medicine
PROC: 0DTJ4ZZ Resection of Appendix, Percutaneous Endoscopic Approach (ICD-10-PCS; CPT 44970; principal; 2023-06-22 21:00)
DX: K35.891 Other acute appendicitis without perforation, with gangrene (principal); G93.41 Metabolic encephalopathy; I48.20 Chronic atrial fibrillation, unspecified; E87.1 Hypo-osmolality and hyponatremia; I10 Essential (primary) hypertension; N40.0 Benign prostatic hyperplasia without lower urinary tract symptoms; E80.6 Other disorders of bilirubin metabolism; E78.5 Hyperlipidemia, unspecified; G47.00 Insomnia, unspecified; M19.90 Unspecified osteoarthritis, unspecified site; J43.9 Emphysema, unspecified; I35.0 Nonrheumatic aortic (valve) stenosis; R33.9 Retention of urine, unspecified; Z79.01 Long term (current) use of anticoagulants; Z79.82 Long term (current) use of aspirin; Z85.828 Personal history of other malignant neoplasm of skin; Z95.0 Presence of cardiac pacemaker; Z87.891 Personal history of nicotine dependence
CPT/HCPCS: 36415; 51702; 74176; 80053; 81001; 83690; 83735; 83880; 84145; 84295; 84484; 85025; 85049; 85384; 85610; 85730; 86140; 86850; 86900; 86927; 88304; 93005; 93306; 94640; 96365; 96367; 96372; 96375; 99285; J0330; J0696; J1100; J1170; J1200; J1644; J1885; J2270; J2371; J2405; J2704; J2710; J3010; J3490; P9017; P9045

== ENCOUNTER 2023-06-30 13:19 | Emergency (ER) | payer OTHER, SELFPAY ==
[2023-06-30] VITALS (27 sets, daily range): BP systolic 127–162; BP diastolic 65–85; PULSE 60–79; RESP 3–23; TEMP 36.7; O2SAT 89–99; BMI 28.5
--- NOTE | 2023-06-30 13:20 | ECG_ITS ---
[facility] Test Date: 2023-06-30 Pat Name: Eddy Miner Department: Room: Gender: Male Vending Technician: : [id number] Requested By: Kurt Montero Order Number: [id number] Demarco MD: Tanna Guerin M.D. Measurements Intervals [place] Rate: 71 P: -88 CA: 212 QRS: -82 QRSD: 210 T: 93 QT: 478 QTc: 520 Interpretive Statements ELECTRONIC VENTRICULAR PACEMAKER ABNORMAL RHYTHM ECG Compared to ECG 06/23/2023 01:22:15 No significant changes Electronically Signed On 07-01-2023 10:49:20 MEDICAL ARTIST by Tanna Guerin M.D. [id number]
--- NOTE | 2023-06-30 13:20 | XR_ITS ---
WS: [id number] Examination: XR chest 1V portable [id number] Reason for Exam: dyspnea/cough Date: June 30, 2023 Comparison: January 03, 2023 Findings: The heart is mildly prominent in size. The mediastinum is not widened. Pacer leads are in place The lungs are hyperinflated. There is no pulmonary edema. There is no large effusion. Minimal scarring or infiltrate is suspected in the bases, particularly the left. Impression: The heart is prominent size. There is no pulmonary edema. Chronic changes are present with increased markings in the lung bases. Atelectasis, scarring, or mini mal infiltrate could have this appearance.
--- NOTE | 2023-06-30 13:21 | ED_ITS ---
HPI - Chest Pain 2 General: Chief Complaint: Chest Pain Stated Complaint: Chest pain Time Seen by Provider: 06/30/23 13:20 Source: patient Mode of arrival: ambulatory Limitations: no limitations History of Present Illness: 87-year-old male presents emergency room complaining of chest discomfort and some shortness of breath he is 1 week postop from an appendectomy he denies any fever sweats chills chest pain was transient last 3 few seconds and then resolved does not have any chest pain at this time. MD complaint: chest pain Associated symptoms: Deny abdominal pain, dyspnea or fever(s) Review of Systems 2 Const: Denies: fever(s) or chills Card: Denies: chest pain Resp: Denies: dyspnea GI: Denies: abdominal pain : Denies: dysuria, urinary frequency or urinary urgency Musc: Denies: neck pain or back pain Skin/Breast: Denies: rash PFSH ED 2 PFSH: Medical History History of nonmelanoma skin cancer Pain in right lower leg Lower extremity edema Pacemaker Hypertension Surgical History S/P cardiac pacemaker procedure S/P knee surgery S/P vasectomy Family History Mother Myocardial infarction Social History Smoking and tobacco/nicotine status: former use of tobacco/nicotine Alcohol intake: never Substance/Drug Use: never Physical Exam 2 Const: COMMON NORMALS: no acute distress GENERAL APPEARANCE: cooperative and comfortable ORIENTATION/CONSCIOUSNESS: Yes awake, Yes oriented to person, Yes oriented to place and Yes oriented to time HENMT: COMMON NORMALS: normocephalic, atraumatic and hearing grossly normal bilaterally HEAD & SCALP: normocephalic and atraumatic Resp: COMMON NORMALS: normal respiratory effort, No retractions, No use of accessory muscles and clear to auscultation bilaterally AUSCULTATION: clear to auscultation bilaterally Cardio: COMMON NORMALS: regular rate, regular rhythm and No murmurs present (Cardio) RATE: regular rate RHYTHM: regular rhythm GI: COMMON NORMALS: Soft to palpation and No hepatosplenomegaly present A USCULTATION: Yes normoactive bowel sounds PALPATION: Yes Soft to palpation, No Tenderness to palpation present (GI), No Guarding due to palpation present (GI) and Yes No hepatosplenomegaly present Extremity: COMMON NORMALS: normal to inspection, capillary refill normal, no clubbing, cyanosis or edema, no calf tenderness and no pedal edema Neuro: SENSORIUM/ORIENTATION: Yes oriented to person, Yes oriented to place and Yes oriented to time Skin: COMMON NORMALS: no rashes or lesions noted GENERAL SKIN EXAM: no rashes or lesions noted Course 2 Vital Signs: Vital signs: Vital Signs Temperature 98.1 F 06/30/23 13:20 Pulse Rate 61 06/30/23 15:20 Respiratory Rate 12 06/30/23 15:20 Blood Pressure 153/78 06/30/23 16:00 Pulse Oximetry 94 06/30/23 16:00 Oxygen Delivery Me thod Room Air 06/30/23 14:55 MDM - Chest Pain Medical Decision Making EKG and cardiac enzymes negative. Patient has been able to void without difficulty. Reviewed findings and patient discharged home follow-up with primary care doctor return if has further problems. There is no tachycardia no hypoxia no persistent chest pain no evidence of PE at this time Medical Records I reviewed the patient's medical records. Lab Data I reviewed the patient's lab results. 06/30/23 13:08 06/30/23 13:08 Laboratory Results WBC 9.47 10^3/uL (3.29-11.43) 06/30/23 13:08 RBC 3.68 10^6/uL (3.85-5.65) L 06/30/23 13:08 Hgb 12.70 g/dL (11.27-16.99) 06/30/23 13:08 Hct 36.9 % (37-53) L 06/30/23 13:08 MCV 100.3 fl (82-101) 06/30/23 13:08 MCH 34.5 pg (27-33) H 06/30/23 13:08 MCHC 34.4 g/dL (30-55) 06/30/23 13:08 RDW 13.4 % (12.1-15.1) 06/30/23 13:08 Plt Count 237 10^3/cmm (157-399) 06/30/23 13:08 MPV 8.9 fL (7.4-10.4) 06/30/23 13:08 Neut % (Auto) 38.8 % 06/30/23 13:08 Lymph % (Auto) 45.3 % 06/30/23 13:08 [place] % (Auto) 5.5 % 06/30/23 13:08 Eos % (Auto) 8.8 % 06/30/23 13:08 Baso % (Auto) 0.5 % 06/30/23 13:08 Neut # (Auto) 3.68 10^3/uL (1.8-7.7) 06/30/23 13:08 Lymph # (Auto) 4.3 10^3/uL (0.8-4.8) 06/30/23 13:08 [place] # (Auto) 0.5 10^3/uL (0.2-0.9) 06/30/23 13:08 Eos # (Auto) 0.8 10^3/uL (0.0-0.8) 06/30/23 13:08 Baso # (Auto) 0.1 10^3/uL (0.0-0.1) 06/30/23 13:08 Nucleated RBC % (auto) 0 % 06/30/23 13:08 Nucleated RBCs # 0.0 /100WBC 06/30/23 13:08 Sodium 135 mmol/L (136-145) L 06/30/23 13:08 Potassium 4.3 mmol/L (3.5-5.1) 06/30/23 13:08 Chloride 100 mmol/L (98-107) 06/30/23 13:08 Carbon Dioxide 24 mmol/L (22-29) 06/30/23 13:08 Anion Gap 15.3 (5-19) 06/30/23 13:08 BUN 14 mg/dL (8-23) 06/30/23 13:08 Creatinine 1.0 mg/dL (0.7-1.2) 06/30/23 13:08 GFR Calculation Not Reportable 06/30/23 13:08 Glucose 119 mg/dL (65-115) H 06/30/23 13:08 Calculated Osmolality 282 mOsm/kg (285-295) L 06/30/23 13:08 Calcium 9.1 mg/dL (8.5-10.5) 06/30/23 13:08 Total Bilirubin 1.0 mg/dL (0.15-1.2) 06/30/23 13:08 AST 28 U/L (0-40) 06/30/23 13:08 ALT 21 U/L (0-41) 06/30/23 13:08 Alkaline Phosphatase 137 U/L (40-130) H 06/30/23 13:08 Troponin T Baseline 34 ng/L (0-15) H 06/30/23 13:08 Troponin T 120 Minute 34.70 ng/L (0-15) H 06/30/23 15:04 Delta Troponin T 0.70 ABS# (0-10) 06/30/23 15:04 Total Protein 5.8 g/dL (6.6-8.7) L 06/30/23 13:08 Albumin 3.8 g/dL (3.5-5.2) 06/30/23 13:08 Globulin 2.0 g/dL (1.3-4.6) 06/30/23 13:08 All radiology interpretation(s) finalized by discharge Discharge Plan Discharge Patient Disposition: Home Clinical Impression: Atypical chest pain, Benign prostatic hyperplasia Condition: Stable Prescriptions: No Action dutasteride 0.5 mg capsule 0.5 mg PO DAILY montelukast 10 mg tablet 10 mg PO QPM omeprazole 20 mg tablet,delayed release (DR/EC) 20 mg PO DAILY trazodone 50 mg tablet 50 mg PO BEDTIME fluticasone propionate 50 mcg/actuation spray,suspension 2 spray intranasal DAILY PRN (Reason: allergies) Rx Instructions: administer into each nostril gabapentin 100 mg capsule See Rx Instructions .ROUTE .COMPLEX Rx Instructions: TAKE 1 CAPSULE BY MOUTH ONCE DAILY AND 2 CAPSULES IN THE EVENING FOR NERVE PAIN. loratadine 10 mg tablet 10 mg PO DAILY PRN (Reason: allergies) mupirocin 2 % ointment 1 applic topical BID PRN (Reason: Rash) Rx Instructions: Apply to affected area(s) until healed. apply to face metoprolol tartrate 25 mg tablet 25 mg PO BID Qty: 180 3RF albuterol sulfate [ProAir HFA] 90 mcg/actuation HFA aerosol inhaler 2 puff inhalation BID aspirin [Adult Low Dose Aspirin] 81 mg tablet,delayed release (DR/EC) 81 mg PO DAILY (DME) Custom Molded Copolymer Orthotics and Orthopedic Shoes See Rx Instructions .Route .MEDSUPPLY Qty: 1 0RF Rx Instructions: As directed [employer] triamcinolone acetonide 0.5 % cream 1 applic topical BID Qty: 15 0RF Rx Instructions: apply to face ferrous sulfate [Iron (ferrous sulfate)] 325 mg (65 mg iron) Tablet 325 mg PO DAILY diltiazem HCl 120 mg capsule,extended release 24hr 120 mg PO QAM alpha lipoic acid 250 mg Capsule 250 mg PO DAILY cyclobenzaprine 10 mg Tablet 10 mg PO TID PRN (Reason: Muscle Spasm) clobetasol 0.05 % Cream See Rx Instructions .ROUTE .COMPLEX Rx Instructions: APPLY SPARINGLY TO AFFECTED AREA(S) TOPICALLY TWICE DAILY TO RASH ON HANDS UNTIL RESOLVED. DO NOT APPLY TO FACE, GROIN OR SKIN FOLDS. melatonin 3 mg Tablet 6 mg PO BEDTIME PRN (Reason: Sleep) warfarin 1 mg Tablet 3.2 mg PO DAILY olodaterol 2.5 mcg/actuation Mist 1 inh INHALATION DAILY mometasone 200 mcg/actuation Hfa Aerosol Inhaler 1 puff INHALATION BID clindamycin HCl 150 mg capsule 150 mg PO QID 7 Days Qty: 28 0RF hydrocodone-acetaminophen 7.5-325 mg tablet 1 tab PO Q6H PRN (Reason: pain) Qty: 20 0RF Colace 100 mg capsule 100 mg PO BID Qty: 14 0RF warfarin 3 mg tablet See Rx Instructions .ROUTE .COMPLEX Qty: 30 0RF Rx Instructions: 3 mg orally daily Mon-sun Flomax 0.4 mg capsule 0.4 mg PO DAILY 30 Days Qty: 30 0RF multivitamin Tablet 1 tab PO DAILY vitamin A 2,400 mcg Capsule 2,400 mcg PO DAILY potassium 99 mg Tablet 99 mg PO BEDTIME saw palmetto 160 mg Capsule 160 mg PO TID Rx Instructions: give with meal/snack vitamin B complex Capsule 1 cap PO DAILY cholecalciferol (vitamin D3) [Vitamin D3] 25 mcg (1,000 unit) Capsule 25 mcg PO DAILY coenzyme Q10 100 mg Capsule 200 mg PO DAILY glucosamine-chondroitin [Osteo Bi-Flex] 250-200 mg Tablet 1 tab PO BID Rx Instructions: give after food/meal morning and evening acetylcarnitine HCl 250 mg Capsule 250 mg PO DAILY Romie Mag Zinc Plus D3 333 mg-133 unit -133 mg-5 mg Tablet 1 tab PO BID Rx Instructions: mornings and evenings turmeric 400 mg Capsule 400 mg PO BID ashwagandha root extract 300 mg Capsule 300 mg PO DAILY Discharge Orders: Discharge ED (Routine); Ordered 06/30/23 Ordered By: Kurt Shay Referrals: Shayla Mesa MD [Primary Care Provider] - Patient Instructions: Opioid Safety, Pain Management Activity Restrictions/Additional Instructions: Thank you for choosing [facility] for your healthcare needs today. Please realize this is an emergency room and that we are providing you with a medical screening exam and this may not be complete and all inclusive of all the testing and or work up that you may need to determine your ailment or severity of your illness. It is very important that you follow up as instructed or that you return to the Emergency Department should you have concerns or if your condition changes or worsens in any way. You are seen today for complaints chest pain shortness of breath your cardiac workup was negative there is no sign of acute coronary syndrome. You should follow-up with your primary care doctor. Return if you have further problems. Coding Level of Care Code ED Branch Associate Teller for Ishan Kendall
[2023-06-30 13:30] LABS: Basophils # 0.1 10^3/uL (0.0-0.1); Basophils % 0.5 %; Eosinophils # 0.8 10^3/uL (0.0-0.8); Eosinophils % 8.8 %; Hematocrit 36.9 % (37-53); Lymphocytes # 4.3 10^3/uL (0.8-4.8); Lymphocytes % 45.3 %; Mean Corpuscular HGB Conc 34.4 g/dL (30-55); Mean Corpuscular Hemoglobin 34.5 pg (27-33); Mean Corpuscular Volume 100.3 fl (82-101); Mean Platelet Volume 8.9 fL (7.4-10.4); Monocytes # 0.5 10^3/uL (0.2-0.9); Monocytes % 5.5 %; Neutrophils # 3.68 10^3/uL (1.8-7.7); Neutrophils % 38.8 %; Nucleated Red Blood Cells % 0 %; Platelet Count 237 10^3/cmm (157-399); Red Blood Count 3.68 10^6/uL (3.85-5.65); Red Cell Distribution Width 13.4 % (12.1-15.1); White Blood Count 9.47 10^3/uL (3.29-11.43)
[2023-06-30 13:57] LABS: Alanine Aminotransferase 21 U/L (0-41); Albumin Level 3.8 g/dL (3.5-5.2); Alkaline Phosphatase 137 U/L (40-130); Anion Gap 15.3 (5-19); Aspartate Amino Transferase 28 U/L (0-40); Blood Urea Nitrogen 14 mg/dL (8-23); Calcium 9.1 mg/dL (8.5-10.5); Carbon Dioxide 24 mmol/L (22-29); Chloride 100 mmol/L (98-107); Glucose 119 mg/dL (65-115); Osmolality Calculated 282 mOsm/kg (285-295); Potassium 4.3 mmol/L (3.5-5.1); Sodium 135 mmol/L (136-145); Total Protein 5.8 g/dL (6.6-8.7)
[2023-06-30 14:00] LABS: Troponin(5th) Baseline 34 ng/L (0-15)
--- NOTE | 2023-06-30 15:20 | ECG_ITS ---
[facility] Test Date: 2023-06-30 Pat Name: Eddy Miner Department: Room: Gender: Male Redye Hand: : 1936-06-13 Requested By: Kurt Montero Order Number: [id number] Demarco MD: Tanna Guerin M.D. Measurements Intervals [place] Rate: 61 P: 0 MN: 0 QRS: -78 QRSD: 211 T: 90 QT: 511 QTc: 516 Interpretive Statements ELECTRONIC VENTRICULAR PACEMAKER ABNORMAL RHYTHM ECG Compared to ECG 06/30/2023 13:25:05 No significant changes Electronically Signed On 07-01-2023 20:11:00 CLIENT SERVICE PROFESSIONAL by Tanna Guerin M.D. [id number]
--- NOTE | 2023-06-30 15:47 | PC.PHAR ---
PT IS [facility]- FAXED FOR MED LIST 3:30PM 06/30/23
== END 2023-06-30 16:28 | disposition home or self-care (01) ==
PROVIDERS: Emergency Provider Family Medicine; PCP Family Medicine
DX: R07.89 Other chest pain (principal); N40.0 Benign prostatic hyperplasia without lower urinary tract symptoms; Z79.82 Long term (current) use of aspirin; Z79.01 Long term (current) use of anticoagulants; Z95.0 Presence of cardiac pacemaker; I10 Essential (primary) hypertension; Z87.891 Personal history of nicotine dependence
CPT/HCPCS: 36415; 71045; 80053; 84484; 85025; 93005; 99285

== ENCOUNTER 2023-07-03 19:39 | Emergency (ER) | payer OTHER, SELFPAY ==
[2023-07-03] VITALS (15 sets, daily range): BP systolic 159–187; BP diastolic 77–100; PULSE 60–71; RESP 12–24; TEMP 36.6; O2SAT 86–100; BMI 27.6
--- NOTE | 2023-07-03 20:01 | XRR_ITS ---
PROCEDURE INFORMATION: Exam: XR Chest Exam date and time: 07/03/2023 8:57 PM Age: 87 years old Clinical indication: Chest pressure; Prior surgery; Surgery date: 6+ months; Surgery type: Pacemaker; Patient HX: C/O chest pain TECHNIQUE: Imaging protocol: Radiologic exam of the chest. Views: 1 view. COMPARISON: CR XR chest 1V portable [id number] 06/30/2023 1:23 PM FINDINGS: Tubes, catheters and devices: Left-sided pacemaker and 2 wire leads similar to 06/30/2023. Lungs: Shallow inspiration with low lung volumes. Slight infiltrate, atelectasis, and/or scarring left lung base appearing increased compared to 06/30/2023, though possibly accentuated by shallow inspiration with lower lung volumes currently compared to prior study. Perhaps slight atelectasis and/or crowding, mild interstitial prominence over portions of lungs. Pulmonary vasculature appears within normal. Pleural spaces: No large or obvious pneumothorax nor pleural effusion seen. Heart/Mediastinum: Stable heart size. Vasculature: Atherosclerotic disease aorta. Bones/joints: Degenerative changes spine. XR/XR chest 1V portable [id number] IMPRESSION: Shallow inspiration with low lung volumes. Slight infiltrate, atelectasis, and/or scarring left lung base appearing increased compared to 06/30/2023, though possibly accentuated by shallow inspiration with lower lung volumes currently compared to prior study. Pneumonia or other process not excluded. Perhaps slight atelectasis and/or crowding, mild interstitial prominence over portions of lungs. Follow-up standard upright PA and lateral views of the chest with deep inspiration recommended when possible.
[2023-07-03 20:33] LABS: Basophils # 0.1 10^3/uL (0.0-0.1); Basophils % 0.5 %; Eosinophils # 0.6 10^3/uL (0.0-0.8); Eosinophils % 5.5 %; Hematocrit 38.4 % (37-53); Lymphocytes # 6.4 10^3/uL (0.8-4.8); Lymphocytes % 58.4 %; Mean Corpuscular HGB Conc 33.9 g/dL (30-55); Mean Corpuscular Hemoglobin 34.3 pg (27-33); Mean Corpuscular Volume 101.3 fl (82-101); Mean Platelet Volume 8.6 fL (7.4-10.4); Monocytes # 0.5 10^3/uL (0.2-0.9); Monocytes % 4.6 %; Neutrophils # 3.35 10^3/uL (1.8-7.7); Neutrophils % 30.5 %; Nucleated Red Blood Cells % 0 %; Platelet Count 292 10^3/cmm (157-399); Red Blood Count 3.79 10^6/uL (3.85-5.65); Red Cell Distribution Width 13.3 % (12.1-15.1); White Blood Count 10.95 10^3/uL (3.29-11.43)
[2023-07-03 20:45] LABS: INR 2.76 (0.8-1.2)
[2023-07-03 20:52] LABS: Troponin(5th) Baseline 29 ng/L (0-15)
[2023-07-03 21:02] LABS: Alanine Aminotransferase 30 U/L (0-41); Albumin Level 3.8 g/dL (3.5-5.2); Alkaline Phosphatase 139 U/L (40-130); Anion Gap 16.2 (5-19); Aspartate Amino Transferase 37 U/L (0-40); Blood Urea Nitrogen 15 mg/dL (8-23); Calcium 9.6 mg/dL (8.5-10.5); Carbon Dioxide 22 mmol/L (22-29); Chloride 104 mmol/L (98-107); Globulin 2.4 g/dL (1.3-4.6); Glucose 107 mg/dL (65-115); Osmolality Calculated 287 mOsm/kg (285-295); Potassium 4.2 mmol/L (3.5-5.1); Sodium 138 mmol/L (136-145); Total Bilirubin 0.7 mg/dL (0.15-1.2); Total Protein 6.2 g/dL (6.6-8.7)
--- NOTE | 2023-07-03 21:13 | ED_ITS ---
Documented by User: Azael Phelps DO 07/03/23 21:16 HPI - Chest Pain 2 General: Chief Complaint: Chest Pain Stated Complaint: cp, chest tightness Time Seen by Provider: 07/03/23 21:07 History of Present Illness: Patient presents to the ER with chest tightness that started this afternoon. Patient was here last week for the same sensation. Patient does not describe it as a pain only at tightness. I comes and goes on its own there is nothing that the patient due to makes it better or makes it worse. It is midsternal and does not radiate. 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 Patient denies having any shortness of breath, nausea vomiting, diaphoresis, Review of Systems 2 General: Reports: 10 or more systems reviewed and unremarkable except in HPI and below PFSH ED 2 PFSH: Medical History History of nonmelanoma skin cancer Pain in right lower leg Lower extremity edema Pacemaker Hypertension Surgical History S/P cardiac pacemaker procedure S/P knee surgery S/P vasectomy Family History Mother Myocardial infarction Social History Smoking and tobacco/nicotine status: former use of tobacco/nicotine Alcohol intake: never Substance/Drug Use: never Physical Exam 2 Const: COMMON NORMALS: no acute distress, average body habitus, patient oriented x3, no limitations, healthy appearing, alert and well nourished HENMT: COMMON NORMALS: normocephalic, atraumatic, hearing grossly normal bilaterally, external ears normal, Normal external nose present, moist oral mucous membranes and oropharynx normal HEAD & SCALP: normocephalic and atraumatic NOSE: Normal external nose present EXTERNAL EAR: Yes external ears normal Neck/C-Spine: COMMON NORMALS: no JVD Chest: COMMONS NORMALS: normal inspection of the chest and normal palpation of entire chest wall Resp: COMMON NORMALS: normal respiratory effort, No retractions, No use of accessory muscles and clear to auscultation bilaterally AUSCULTATION: clear to auscultation bilaterally Cardio: COMMON NORMALS: no JVD, regular rate, regular rhythm, S1 normal heart sound present, S2 normal heart sound present, No gallops present (Cardio), No clicks present (Cardio) and No rub (Cardio) RATE: regular rate RHYTHM: r egular rhythm HEART SOUNDS: S1 normal heart sound present and S2 normal heart sound present GI: COMMON NORMALS: Normal to inspection, nondistended, normoactive bowel sounds present, Soft to palpation, non-tender, No hepatosplenomegaly present and no masses PALPATION: Yes Soft to palpation and Yes No hepatosplenomegaly present Neuro: COMMON NORMALS: patient oriented x3 SENSORIUM/ORIENTATION: Yes alert Course 2 Vital Signs: Vital signs: Vital Signs Temperature 98 F 07/03/23 19:47 Pulse Rate 60 07/03/23 22:45 Respiratory Rate 17 07/03/23 22:45 Blood Pressure 184/88 07/03/23 22:45 Pulse Oximetry 91 07/03/23 22:45 Oxygen Delivery Me thod Room Air 07/03/23 21:08 MDM - Chest Pain Differential Diagnosis Unlikely acute massive pulmonary embolism, acute respiratory failure, acute myocardial infarction, cardiac arrest or sudden cardiac Medical Records I reviewed the patient's medical records. Lab Data I reviewed the patient's lab results. 07/03/23 20:22 07/03/23 20:22 Radiology Impressions Chest X-Ray 07/03/23 20:01 IMPRESSION: Shallow inspiration with low lung volumes. Slight infiltrate, atelectasis, and/or scarring left lung base appearing increased compared to 06/30/2023, though possibly accentuated by shallow inspiration with lower lung volumes currently compared to prior study. Pneumonia or other process not excluded. Perhaps slight atelectasis and/or crowding, mild interstitial prominence over portions of lungs. Follow-up standard upright PA and lateral views of the chest with deep inspiration recommended when possible. Laboratory Results WBC 10.95 10^3/uL (3.29-11.43) 07/03/23 20:22 RBC 3.79 10^6/uL (3.85-5.65) L 07/03/23 20:22 Hgb 13.00 g/dL (11.27-16.99) 07/03/23 20: Hct 38.4 % (37-53) 07/03/23 20:22 MCV 101.3 fl (82-101) H 07/03/23 20:22 MCH 34.3 pg (27-33) H 07/03/23 20: MCHC 33.9 g/dL (30-55) 07/03/23 20:22 RDW 13.3 % (12.1-15.1) 07/03/23 20: Plt Count 292 10^3/cmm (157-399) 07/03/23 20:22 MPV 8.6 fL (7.4-10.4) 07/03/23 20:22 Neut % (Auto) 30.5 % 07/03/23 20: Lymph % (Auto) 58.4 % 07/03/23 20: [place] % (Auto) 4.6 % 07/03/23 20: Eos % (Auto) 5.5 % 07/03/23: Baso % (Auto) 0.5 % 07/03/23: Neut # (Auto) 3.35 10^3/uL (1.8-7.7) 07/03/23 20: Lymph # (Auto) 6.4 10^3/uL (0.8-4.8) H 07/03/23 20: [place] # (Auto) 0.5 10^3/uL (0.2-0.9) 07/03/23 20: Eos # (Auto) 0.6 10^3/uL (0.0-0.8) 07/03/23: Baso # (Auto) 0.1 10^3/uL (0.0-0.1) 07/03/23 20: Nucleated RBC % (auto) 0 % 07/03/23: Nucleated RBCs # 0.0 /100WBC 07/03/23 20: PT 30.20 SECONDS (12.1-14.9) H 07/03/23 20: INR 2.76 (0.8-1.2) H 07/03/23 20:22 Sodium 138 mmol/L (136-145) 07/03/23 20:22 Potassium 4.2 mmol/L (3.5-5.1) 07/03/23 20: Chloride 104 mmol/L (98-107) 07/03/23 20:22 Carbon Dioxide 22 mmol/L (22-29) 07/03/23 20:22 Anion Gap 16.2 (5-19) 07/03/23 20:22 BUN 15 mg/dL (8-23) 07/03/23 20:22 Creatinine 1.1 mg/dL (0.7-1.2) 07/03/23 20:22 GFR Calculation Not Reportable 07/03/23 20:22 Glucose 107 mg/dL (65-115) 07/03/23 20:22 Calculated Osmolality 287 mOsm/kg (285-295) 07/03/23 20:22 Calcium 9.6 mg/dL (8.5-10.5) 07/03/23 20:22 Total Bilirubin 0.7 mg/dL (0.15-1.2) 07/03/23 20:22 AST 37 U/L (0-40) 07/03/23 20:22 ALT 30 U/L (0-41) 07/03/23 20:22 Alkaline Phosphatase 139 U/L (40-130) H 07/03/23 20:22 Troponin T Baseline 29 ng/L (0-15) H 07/03/23 20:22 Troponin T 120 Minute 31.45 ng/L (0-15) H 07/03/23 22:11 Delta Troponin T 2.45 ABS# (0-10) 07/03/23 22:11 Total Protein 6.2 g/dL (6.6-8.7) L 07/03/23 20:22 Albumin 3.8 g/dL (3.5-5.2) 07/03/23 20:22 Globulin 2.4 g/dL (1.3-4.6) 07/03/23 20:22 All radiology interpretation(s) finalized by discharge Discharge Plan Discharge Patient Disposition: Home Clinical Impression: Chest pain, Severe aortic stenosis Condition: Stable Prescriptions: No Action dutasteride 0.5 mg capsule 0.5 mg PO DAILY montelukast 10 mg tablet 10 mg PO QPM omeprazole 20 mg tablet,delayed release (DR/EC) 20 mg PO DAILY trazodone 50 mg tablet 50 mg PO BEDTIME fluticasone propionate 50 mcg/actuation spray,suspension 2 spray intranasal DAILY PRN (Reason: allergies) Rx Instructions: administer into each nostril gabapentin 100 mg capsule See Rx Instructions .ROUTE .COMPLEX Rx Instructions: TAKE 1 CAPSULE BY MOUTH ONCE DAILY AND 2 CAPSULES IN THE EVENING FOR NERVE PAIN. loratadine 10 mg tablet 10 mg PO DAILY PRN (Reason: allergies) mupirocin 2 % ointment 1 applic topical BID PRN (Reason: Rash) Rx Instructions: Apply to affected area(s) until healed. apply to face metoprolol tartrate 25 mg tablet 25 mg PO BID Qty: 180 3RF albuterol sulfate [ProAir HFA] 90 mcg/actuation HFA aerosol inhaler 2 puff inhalation BID aspirin [Adult Low Dose Aspirin] 81 mg tablet,delayed release (DR/EC) 81 mg PO DAILY (DME) Custom Molded Copolymer Orthotics and Orthopedic Shoes See Rx Instructions .Route .MEDSUPPLY Qty: 1 0RF Rx Instructions: As directed [employer] triamcinolone acetonide 0.5 % cream 1 applic topical BID Qty: 15 0RF Rx Instructions: apply to face ferrous sulfate [Iron (ferrous sulfate)] 325 mg (65 mg iron) Tablet 325 mg PO DAILY diltiazem HCl 120 mg capsule,extended release 24hr 120 mg PO QAM alpha lipoic acid 250 mg Capsule 250 mg PO DAILY cyclobenzaprine 10 mg Tablet 10 mg PO TID PRN (Reason: Muscle Spasm) clobetasol 0.05 % Cream See Rx Instructions .ROUTE .COMPLEX Rx Instructions: APPLY SPARINGLY TO AFFECTED AREA(S) TOPICALLY TWICE DAILY TO RASH ON HANDS UNTIL RESOLVED. DO NOT APPLY TO FACE, GROIN OR SKIN FOLDS. melatonin 3 mg Tablet 6 mg PO BEDTIME PRN (Reason: Sleep) warfarin 1 mg Tablet 3.2 mg PO DAILY olodaterol 2.5 mcg/actuation Mist 1 inh INHALATION DAILY mometasone 200 mcg/actuation Hfa Aerosol Inhaler 1 puff INHALATION BID hydrocodone-acetaminophen 7.5-325 mg tablet 1 tab PO Q6H PRN (Reason: pain) Qty: 20 0RF Colace 100 mg capsule 100 mg PO BID Qty: 14 0RF warfarin 3 mg tablet See Rx Instructions .ROUTE .COMPLEX Qty: 30 0RF Rx Instructions: 3 mg orally daily Mon-sun Flomax 0.4 mg capsule 0.4 mg PO DAILY 30 Days Qty: 30 0RF multivitamin Tablet 1 tab PO DAILY vitamin A 2,400 mcg Capsule 2,400 mcg PO DAILY potassium 99 mg Tablet 99 mg PO BEDTIME saw palmetto 160 mg Capsule 160 mg PO TID Rx Instructions: give with meal/snack vitamin B complex Capsule 1 cap PO DAILY cholecalciferol (vitamin D3) [Vitamin D3] 25 mcg (1,000 unit) Capsule 25 mcg PO DAILY coenzyme Q10 100 mg Capsule 200 mg PO DAILY glucosamine-chondroitin [Osteo Bi-Flex] 250-200 mg Tablet 1 tab PO BID Rx Instructions: give after food/meal morning and evening acetylcarnitine HCl 250 mg Capsule 250 mg PO DAILY Romie Mag Zinc Plus D3 333 mg-133 unit -133 mg-5 mg Tablet 1 tab PO BID Rx Instructions: mornings and evenings turmeric 400 mg Capsule 400 mg PO BID ashwagandha root extract 300 mg Capsule 300 mg PO DAILY Discharge Orders: Discharge ED (Routine); Ordered 07/04/23 Ordered By: Parth Sevilla Referrals: Shayla Mesa MD [Primary Care Provider] - 4-7 days Patient Instructions: Chest Pain (ED), Aortic Stenosis (ED), Opioid Safety, Pain Management Activity Restrictions/Additional Instructions: Return to the ER for any problems or concerns. Coding Level of Care Code ED Social Worker Psychiatric for Chg Fwd Documented by User: Parth Sevilla DO 07/04/23 00:52 HPI - Chest Pain 2 General: Chief Complaint: Chest Pain Stated Complaint: cp, chest tightness Time Seen by Provider: 07/03/23 21:07 [facility] ED 2 PFSH: Medical History History of nonmelanoma skin cancer Pain in right lower leg Lower extremity edema Pacemaker Hypertension Surgical History S/P cardiac pacemaker procedure S/P knee surgery S/P vasectomy Family History Mother Myocardial infarction Social History Smoking and tobacco/nicotine status: former use of tobacco/nicotine Alcohol intake: never Substance/Drug Use: never Course 2 Vital Signs: Vital signs: Vital Signs Temperature 98 F 07/03/23 19:47 Pulse Rate 60 07/03/23 22:45 Respiratory Rate 17 07/03/23 22:45 Blood Pressure 184/88 07/03/23 22:45 Pulse Oximetry 91 07/03/23 22:45 Oxygen Delivery Me thod Room Air 07/03/23 21:08 MDM - Chest Pain Medical Decision Making 87-year-old male checked out at shift change by Dr. Phelps. This patient is now chest pain-free. He is not experiencing the pressure he was. He states that he feels improved, and would like to go home. His CBC is normal. BMP is normal. His delta troponin is 2.5. Both his baseline troponin and 2-hour troponin are near his previous troponins drawn in the past. Creatinine is 1.1. The patient has a history of severe aortic stenosis, which could cause some pressure in the chest. He will be allowed discharge. He is to follow-up as scheduled for ongoing investigation of possible intervention for the . Return for return of pain in the meantime. Lab Data 07/03/23 20:22 07/03/23 20:22 Radiology Impressions Chest X-Ray 07/03/23 20:01 IMPRESSION: Shallow inspiration with low lung volumes. Slight infiltrate, atelectasis, and/or scarring left lung base appearing increased compared to 06/30/2023, though possibly accentuated by shallow inspiration with lower lung volumes currently compared to prior study. Pneumonia or other process not excluded. Perhaps slight atelectasis and/or crowding, mild interstitial prominence over portions of lungs. Follow-up standard upright PA and lateral views of the chest with deep inspiration recommended when possible. Laboratory Results WBC 10.95 10^3/uL (3.29-11.43) 07/03/23 20:22 RBC 3.79 10^6/uL (3.85-5.65) L 07/03/23 20:22 Hgb 13.00 g/dL (11.27-16.99) 07/03/23 20:22 Hct 38.4 % (37-53) 07/03/23 20:22 MCV 101.3 fl (82-101) H 07/03/23 20:22 MCH 34.3 pg (27-33) H 07/03/23 20:22 MCHC 33.9 g/dL (30-55) 07/03/23 20:22 RDW 13.3 % (12.1-15.1) 07/03/23 20:22 Plt Count 292 10^3/cmm (157-399) 07/03/23 20:22 MPV 8.6 fL (7.4-10.4) 07/03/23 20:22 Neut % (Auto) 30.5 % 07/03/23 20: Lymph % (Auto) 58.4 % 07/03/23 20: [place] % (Auto) 4.6 % 07/03/23 20: Eos % (Auto) 5.5 % 07/03/23 20: Baso % (Auto) 0.5 % 07/03/23 20: Neut # (Auto) 3.35 10^3/uL (1.8-7.7) 07/03/23 20:22 Lymph # (Auto) 6.4 10^3/uL (0.8-4.8) H 07/03/23 20:22 [place] # (Auto) 0.5 10^3/uL (0.2-0.9) 07/03/23 20: Eos # (Auto) 0.6 10^3/uL (0.0-0.8) 07/03/23 20: Baso # (Auto) 0.1 10^3/uL (0.0-0.1) 07/03/23 20: Nucleated RBC % (auto) 0 % 07/03/23 20: Nucleated RBCs # 0.0 /100WBC 07/03/23 20:22 PT 30.20 SECONDS (12.1-14.9) H 07/03/23 20:22 INR 2.76 (0.8-1.2) H 07/03/23 20:22 Sodium 138 mmol/L (136-145) 07/03/23 20:22 Potassium 4.2 mmol/L (3.5-5.1) 07/03/23 20:22 Chloride 104 mmol/L (98-107) 07/03/23 20:22 Carbon Dioxide 22 mmol/L (22-29) 07/03/23 20:22 Anion Gap 16.2 (5-19) 07/03/23 20:22 BUN 15 mg/dL (8-23) 07/03/23 20:22 Creatinine 1.1 mg/dL (0.7-1.2) 07/03/23 20:22 GFR Calculation Not Reportable 07/03/23 20:22 Glucose 107 mg/dL (65-115) 07/03/23 20:22 Calculated Osmolality 287 mOsm/kg (285-295) 07/03/23 20:22 Calcium 9.6 mg/dL (8.5-10.5) 07/03/23 20:22 Total Bilirubin 0.7 mg/dL (0.15-1.2) 07/03/23 20:22 AST 37 U/L (0-40) 07/03/23 20:22 ALT 30 U/L (0-41) 07/03/23 20:22 Alkaline Phosphatase 139 U/L (40-130) H 07/03/23 20:22 Troponin T Baseline 29 ng/L (0-15) H 07/03/23 20:22 Troponin T 120 Minute 31.45 ng/L (0-15) H 07/03/23 22:11 Delta Troponin T 2.45 ABS# (0-10) 07/03/23 22:11 Total Protein 6.2 g/dL (6.6-8.7) L 07/03/23 20:22 Albumin 3.8 g/dL (3.5-5.2) 07/03/23 20:22 Globulin 2.4 g/dL (1.3-4.6) 07/03/23 20:22 Discharge Plan Discharge Patient Disposition: Home Clinical Impression: Chest pain, Severe aortic stenosis Condition: Stable Prescriptions: No Action dutasteride 0.5 mg capsule 0.5 mg PO DAILY montelukast 10 mg tablet 10 mg PO QPM omeprazole 20 mg tablet,delayed release (DR/EC) 20 mg PO DAILY trazodone 50 mg tablet 50 mg PO BEDTIME fluticasone propionate 50 mcg/actuation spray,suspension 2 spray intranasal DAILY PRN (Reason: allergies) Rx Instructions: administer into each nostril gabapentin 100 mg capsule See Rx Instructions .ROUTE .COMPLEX Rx Instructions: TAKE 1 CAPSULE BY MOUTH ONCE DAILY AND 2 CAPSULES IN THE EVENING FOR NERVE PAIN. loratadine 10 mg tablet 10 mg PO DAILY PRN (Reason: allergies) mupirocin 2 % ointment 1 applic topical BID PRN (Reason: Rash) Rx Instructions: Apply to affected area(s) until healed. apply to face metoprolol tartrate 25 mg tablet 25 mg PO BID Qty: 180 3RF albuterol sulfate [ProAir HFA] 90 mcg/actuation HFA aerosol inhaler 2 puff inhalation BID aspirin [Adult Low Dose Aspirin] 81 mg tablet,delayed release (DR/EC) 81 mg PO DAILY (DME) Custom Molded Copolymer Orthotics and Orthopedic Shoes See Rx Instructions .Route .MEDSUPPLY Qty: 1 0RF Rx Instructions: As directed [employer] triamcinolone acetonide 0.5 % cream 1 applic topical BID Qty: 15 0RF Rx Instructions: apply to face ferrous sulfate [Iron (ferrous sulfate)] 325 mg (65 mg iron) Tablet 325 mg PO DAILY diltiazem HCl 120 mg capsule,extended release 24hr 120 mg PO QAM alpha lipoic acid 250 mg Capsule 250 mg PO DAILY cyclobenzaprine 10 mg Tablet 10 mg PO TID PRN (Reason: Muscle Spasm) clobetasol 0.05 % Cream See Rx Instructions .ROUTE .COMPLEX Rx Instructions: APPLY SPARINGLY TO AFFECTED AREA(S) TOPICALLY TWICE DAILY TO RASH ON HANDS UNTIL RESOLVED. DO NOT APPLY TO FACE, GROIN OR SKIN FOLDS. melatonin 3 mg Tablet 6 mg PO BEDTIME PRN (Reason: Sleep) warfarin 1 mg Tablet 3.2 mg PO DAILY olodaterol 2.5 mcg/actuation Mist 1 inh INHALATION DAILY mometasone 200 mcg/actuation Hfa Aerosol Inhaler 1 puff INHALATION BID hydrocodone-acetaminophen 7.5-325 mg tablet 1 tab PO Q6H PRN (Reason: pain) Qty: 20 0RF Colace 100 mg capsule 100 mg PO BID Qty: 14 0RF warfarin 3 mg tablet See Rx Instructions .ROUTE .COMPLEX Qty: 30 0RF Rx Instructions: 3 mg orally daily Mon-sun Flomax 0.4 mg capsule 0.4 mg PO DAILY 30 Days Qty: 30 0RF multivitamin Tablet 1 tab PO DAILY vitamin A 2,400 mcg Capsule 2,400 mcg PO DAILY potassium 99 mg Tablet 99 mg PO BEDTIME saw palmetto 160 mg Capsule 160 mg PO TID Rx Instructions: give with meal/snack vitamin B complex Capsule 1 cap PO DAILY cholecalciferol (vitamin D3) [Vitamin D3] 25 mcg (1,000 unit) Capsule 25 mcg PO DAILY coenzyme Q10 100 mg Capsule 200 mg PO DAILY glucosamine-chondroitin [Osteo Bi-Flex] 250-200 mg Tablet 1 tab PO BID Rx Instructions: give after food/meal morning and evening acetylcarnitine HCl 250 mg Capsule 250 mg PO DAILY Romie Mag Zinc Plus D3 333 mg-133 unit -133 mg-5 mg Tablet 1 tab PO BID Rx Instructions: mornings and evenings turmeric 400 mg Capsule 400 mg PO BID ashwagandha root extract 300 mg Capsule 300 mg PO DAILY Discharge Orders: Discharge ED (Routine); Ordered 07/04/23 Ordered By: Parth Sevilla Referrals: Shayla Mesa MD [Primary Care Provider] - 4-7 days Patient Instructions: Chest Pain (ED), Aortic Stenosis (ED), Opioid Safety, Pain Management Activity Restrictions/Additional Instructions: Return to the ER for any problems or concerns. Coding Level of Care Code ED Social Worker Psychiatric for Ishan Kendall
[2023-07-03 22:40] LABS: Troponin 5 2HR 31.45 ng/L (0-15); Troponin 5 2HR Delta 2.45 ABS# (0-10)
--- NOTE | 2023-07-03 22:57 | ECG_ITS ---
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 Measurements Intervals [place] Rate: 61 P: 0 TX: 0 QRS: -79 QRSD: 201 T: 88 QT: 506 QTc: 510 Interpretive Statements ELECTRONIC VENTRICULAR PACEMAKER ABNORMAL RHYTHM ECG Compared to ECG 06/30/2023 15:11:36 No significant changes Electronically Signed On 07-04-2023 21:01:15 [employer] FSCM DEVELOPER by Tanna Guerin M.D. [id number]
[2023-07-04] VITALS: PULSE 71; RESP 18
[2023-07-04 00:15] VITALS: PULSE 60; RESP 17
[2023-07-04 00:30] VITALS: PULSE 61; RESP 19
[2023-07-04 00:54] VITALS: BP 154/76; PULSE 76; RESP 16; O2SAT 98
== END 2023-07-04 00:40 | disposition home or self-care (01) ==
PROVIDERS: Emergency Medicine; Emergency Provider Emergency Medicine; PCP Family Medicine
DX: R07.9 Chest pain, unspecified (principal); I35.0 Nonrheumatic aortic (valve) stenosis; Z79.82 Long term (current) use of aspirin; Z79.01 Long term (current) use of anticoagulants; Z95.0 Presence of cardiac pacemaker; I10 Essential (primary) hypertension; Z87.891 Personal history of nicotine dependence
CPT/HCPCS: 36415; 71045; 80053; 84484; 85025; 85610; 93005; 99285

== ENCOUNTER → 2023-07-12 10:13 | Outpatient (BNVA) | payer MEDICARE, SELFPAY | PROVIDERS: PCP Family Medicine; Visit Provider Surgery | DX: Z90.49 Acquired absence of other specified parts of digestive tract (principal); Z98.890 Other specified postprocedural states | CPT/HCPCS: 99024 ==

== ENCOUNTER 2023-08-19 10:25 | Emergency (ER) | payer OTHER, SELFPAY ==
[2023-08-19] VITALS (7 sets, daily range): BP systolic 120–151; BP diastolic 62–91; PULSE 60–88; RESP 14–22; TEMP 36.8; O2SAT 93–98; BMI 26.4
--- NOTE | 2023-08-19 10:33 | XRR_ITS ---
PROCEDURE INFORMATION: Exam: XR Chest Exam date and time: 08/19/2023 10:53 AM Age: 87 years old Clinical indication: Pain; Other: Cp; Prior surgery; Surgery date: 6+ months; Surgery type: Pacemaker TECHNIQUE: Imaging protocol: Radiologic exam of the chest. Views: 1 view. COMPARISON: CR XR chest 1V portable [id number] 07/03/2023 8:57 PM FINDINGS: Tubes, catheters and devices: Cardiac device left anterior chest in good position. Lungs: Unremarkable. No consolidation. Pleural spaces: Unremarkable. No pleural effusion. No pneumothorax. Heart/Mediastinum: The there is metallic cardiac valve prosthesis present. No cardiomegaly. Bones/joints: Unremarkable. XR/XR chest 1V portable [id number] IMPRESSION: 1. No acute findings. 2. Cardiac valve prosthesis is in place. 3. Cardiac device left anterior chest
--- NOTE | 2023-08-19 10:33 | ECG_ITS ---
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 Measurements Intervals [place] Rate: 78 P: 0 [place]: 0 QRS: -80 QRSD: 198 T: 88 QT: 437 QTc: 501 Interpretive Statements ELECTRONIC VENTRICULAR PACEMAKER Compared to ECG 07/03/2023 22:57:15 No significant changes Electronically Signed On 08-20-2023 17:03:36 CDT by Jose Haile M.D. [id number]
--- NOTE | 2023-08-19 10:41 | ED_ITS ---
HPI - Chest Pain 2 General: Chief Complaint: Chest Pain Stated Complaint: tight chest, sob Time Seen by Provider: 08/19/23 10:41 Source: patient Mode of arrival: ambulatory History of Present Illness: 87-year-[facility] of right chest discomfort and weakness. No nausea vomiting or diaphoresis no radiation of discomfort to the neck back or arms. He does have a little bit of a headache. 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 This morning he got up and had a little bit of abdominal discomfort he refers some of to the areas where the sheets for the TAVR or placed are somewhat uncomfortable. Additionally he has some discomfort where the trocar sites for the appendix were placed. He denies any dysuria urgency or frequency nausea or vomiting. Denies dysuria urgency or frequency nausea vomiting or diarrhea. States he actually feels somewhat better now. He also had some tightness in the right side of his chest when he had this episode this morning. Patient had a myocardial perfusion scan done in June 2022 that was normal and the lead to having the TAVR valve replacement. Previous echo showed severe aortic stenosis this was obviously done prior to the TAVR valve placement. He is not on any anticoagulants at this time. MD complaint: chest pain Onset (ago): minute(s) Onset: during rest Relieving factors: nothing Exacerbating factors: nothing Associated symptoms: Deny abdominal pain, diaphoresis, dyspnea, fever(s), leg edema, nausea, palpitations, sense of impending doom, syncope or vomiting Treatment prior to arrival: none Review of Systems 2 Const: Denies: fever(s), chills or diaphoresis Card: Denies: chest pain, palpitations or syncope Resp: Denies: dyspnea GI: Denies: abdominal pain, nausea or vomiting : Denies: dysuria, urinary frequency or urinary urgency Musc: Denies: neck pain or back pain Skin/Breast: Denies: rash PFSH ED 2 PFSH: Medical History History of nonmelanoma skin cancer Pain in right lower leg Lower extremity edema Pacemaker Hypertension Surgical History Status post laparoscopic appendectomy S/P cardiac pacemaker procedure S/P knee surgery S/P vasectomy Family History Mother Myocardial infarction Social History Smoking and tobacco/nicotine status: former use of tobacco/nicotine Alcohol intake: never Substance/Drug Use: never Physical Exam 2 Const: COMMON NORMALS: no acute distress GENERAL APPEARANCE: cooperative and comfortable ORIENTATION/CONSCIOUSNESS: Yes awake, Yes oriented to person, Yes oriented to place and Yes oriented to time HENMT: COMMON NORMALS: normocephalic, atraumatic and hearing grossly normal bilaterally HEAD & SCALP: normocephalic and atraumatic Resp: COMMON NORMALS: normal respiratory effort, No retractions, No use of accessory muscles and clear to auscultation bilaterally AUSCULTATION: clear to auscultation bilaterally Cardio: COMMON NORMALS: regular rate, regular rhythm and No murmurs present (Cardio) RATE: regular rate RHYTHM: regular rhythm GI: COMMON NORMALS: Soft to palpation and No hepatosplenomegaly present A USCULTATION: Yes normoactive bowel sounds PALPATION: Yes Soft to palpation, No Tenderness to palpation present (GI), No Guarding due to palpation present (GI) and Yes No hepatosplenomegaly present Extremity: COMMON NORMALS: normal to inspection, capillary refill normal, no clubbing, cyanosis or edema, no calf tenderness and no pedal edema Neuro: SENSORIUM/ORIENTATION: Yes oriented to person, Yes oriented to place and Yes oriented to time Skin: COMMON NORMALS: no rashes or lesions noted GENERAL SKIN EXAM: no rashes or lesions noted Course 2 Vital Signs: Vital signs: Vital Signs Temperature 98.3 F 08/19/23 10:32 Pulse Rate 88 08/19/23 14:22 Respiratory Rate 22 H 08/19/23 11:37 Blood Pressure 130/64 08/19/23 14:22 Pulse Oximetry 95 08/19/23 14:22 Oxygen Delivery Me thod Room Air 08/19/23 10:52 MDM - Chest Pain Medical Decision Making Cardiac enzymes are negative white count is 13 9 patient denies any fever sweats chills his T. bili is slightly elevated he has no right upper quadrant abdominal pain reexamined his patient no negative Santa sign.. Will discharge patient home have him follow-up with his primary care doctor within the next week and repeat his lab work. Return if he has further problems. Medical Records I reviewed the patient's medical records. Lab Data I reviewed the patient's lab results. 08/19/23 10:50 08/19/23 10:50 Radiology Impressions Chest X-Ray 08/19/23 10:33 IMPRESSION: 1. No acute findings. 2. Cardiac valve prosthesis is in place. 3. Cardiac device left anterior chest Laboratory Results WBC 13.90 10^3/uL (3.29-11.43) H 08/19/23 10:50 RBC 4.06 10^6/uL (3.85-5.65) 08/19/23 10:50 Hgb 13.90 g/dL (11.27-16.99) 08/19/23 10:50 Hct 41.0 % (37-53) 08/19/23 10:50 MCV 101.0 fl (82-101) 08/19/23 10:50 MCH 34.2 pg (27-33) H 08/19/23 10:50 MCHC 33.9 g/dL (30-55) 08/19/23 10:50 RDW 13.2 % (12.1-15.1) 08/19/23 10:50 Plt Count 111 10^3/cmm (157-399) L 08/19/23 10:50 MPV 9.1 fL (7.4-10.4) 08/19/23 10:50 Neut % (Auto) 62.3 % 08/19/23 10:50 Lymph % (Auto) 32.0 % 08/19/23 10:50 Lawrence % (Auto) 4.5 % 08/19/23 10:50 Eos % (Auto) 0.5 % 08/19/23 10:50 Baso % (Auto) 0.2 % 08/19/23 10:50 Neut # (Auto) 8.65 10^3/uL (1.8-7.7) H 08/19/23 10:50 Lymph # (Auto) 4.5 10^3/uL (0.8-4.8) 08/19/23 10:50 Lawrence # (Auto) 0.6 10^3/uL (0.2-0.9) 08/19/23 10:50 Eos # (Auto) 0.1 10^3/uL (0.0-0.8) 08/19/23 10:50 Baso # (Auto) 0.0 10^3/uL (0.0-0.1) 08/19/23 10:50 Nucleated RBC % (auto) 0 % 08/19/23 10:50 Nucleated RBCs # 0.0 /100WBC 08/19/23 10:50 PT 16.90 SECONDS (12.1-14.9) H 08/19/23 10:50 INR 1.33 (0.8-1.2) H 08/19/23 10:50 Sodium 134 mmol/L (136-145) L 08/19/23 10:50 Potassium 4.5 mmol/L (3.5-5.1) 08/19/23 10:50 Chloride 98 mmol/L (98-107) 08/19/23 10:50 Carbon Dioxide 24 mmol/L (22-29) 08/19/23 10:50 Anion Gap 16.5 (5-19) 08/19/23 10:50 BUN 13 mg/dL (8-23) 08/19/23 10:50 Creatinine 0.9 mg/dL (0.7-1.2) 08/19/23 10:50 GFR Calculation Not Reportable 08/19/23 10:50 Glucose 115 mg/dL (65-115) 08/19/23 10:50 Calculated Osmolality 279 mOsm/kg (285-295) L 08/19/23 10:50 Calcium 9.2 mg/dL (8.5-10.5) 08/19/23 10:50 Total Bilirubin 1.9 mg/dL (0.15-1.2) H 08/19/23 10:50 AST 28 U/L (0-40) 08/19/23 10:50 ALT 28 U/L (0-41) 08/19/23 10:50 Alkaline Phosphatase 136 U/L (40-130) H 08/19/23 10:50 Troponin T Baseline 67 ng/L (0-15) H 08/19/23 10:50 Troponin T 120 Minute 66.85 ng/L (0-15) H 08/19/23 13:00 Delta Troponin T -0.15 ABS# (0-10) L 08/19/23 13:00 NT-Pro-B Natriuret Pep 1602 pg/mL (0-450) H 08/19/23 10:50 Total Protein 6.0 g/dL (6.6-8.7) L 08/19/23 10:50 Albumin 4.0 g/dL (3.5-5.2) 08/19/23 10:50 Globulin 2.0 g/dL (1.3-4.6) 08/19/23 10:50 Lipase 23 U/L (13-60) 08/19/23 10:50 All radiology interpretation(s) finalized by discharge Discharge Plan Discharge Patient Disposition: Home Clinical Impression: Atypical chest pain Condition: Stable Prescriptions: No Action dutasteride 0.5 mg capsule 0.5 mg PO BEDTIME fluticasone propionate 50 mcg/actuation spray,suspension 2 spray intranasal DAILY PRN (Reason: allergies) Rx Instructions: administer into each nostril gabapentin 100 mg capsule See Rx Instructions .ROUTE .COMPLEX Rx Instructions: TAKE 1 CAPSULE BY MOUTH IN THE MORNING AND 2 CAPSULES IN THE EVENING FOR NERVE PAIN. loratadine 10 mg tablet 10 mg PO DAILY PRN (Reason: allergies) albuterol sulfate [ProAir HFA] 90 mcg/actuation HFA aerosol inhaler 2 puff inhalation BID aspirin [Adult Low Dose Aspirin] 81 mg tablet,delayed release (DR/EC) 81 mg PO DAILY (DME) Custom Molded Copolymer Orthotics and Orthopedic Shoes See Rx Instructions .Route .MEDSUPPLY Qty: 1 0RF Rx Instructions: As directed The [facility] ferrous sulfate [Iron (ferrous sulfate)] 325 mg (65 mg iron) Tablet 325 mg PO DAILY diltiazem HCl 120 mg capsule,extended release 24hr 120 mg PO QAM cyclobenzaprine 10 mg Tablet 10 mg PO TID PRN (Reason: Muscle Spasm) clobetasol 0.05 % Cream See Rx Instructions .ROUTE .COMPLEX Rx Instructions: APPLY SPARINGLY TO AFFECTED AREA(S) TOPICALLY TWICE DAILY TO RASH ON HANDS UNTIL RESOLVED. DO NOT APPLY TO FACE, GROIN OR SKIN FOLDS. melatonin 3 mg Tablet 6 mg PO BEDTIME PRN (Reason: Sleep) olodaterol 2.5 mcg/actuation Mist 2 inh INHALATION DAILY mometasone 200 mcg/actuation Hfa Aerosol Inhaler 1 puff INHALATION BID docusate sodium [Colace] 100 mg capsule 100 mg PO BID Qty: 14 0RF multivitamin Tablet 1 tab PO DAILY vitamin A 2,400 mcg Capsule 2,400 mcg PO DAILY saw palmetto 160 mg Capsule 160 mg PO TID Rx Instructions: give with meal/snack vitamin B complex Capsule 1 cap PO DAILY glucosamine-chondroitin [Osteo Bi-Flex] 250-200 mg Tablet 1 tab PO BID Rx Instructions: give after food/meal morning and evening turmeric 400 mg Capsule 400 mg PO BID Eliquis 5 mg tablet 5 mg PO BID potassium gluconate 595 mg (99 mg) Tablet 595 mg PO DAILY Discharge Orders: Discharge ED (Routine); Ordered 08/19/23 Ordered By: Kurt Shay Referrals: Shayla Mesa MD [Primary Care Provider] - Discharge Diet: Usual diet Discharge Activity: Increase activity as tolerated Patient Instructions: Opioid Safety, Pain Management Activity Restrictions/Additional Instructions: Thank you for choosing [facility] for your healthcare needs today. Please realize this is an emergency room and that we are providing you with a medical screening exam and this may not be complete and all inclusive of all the testing and or work up that you may need to determine your ailment or severity of your illness. It is very important that you follow up as instructed or that you return to the Emergency Department should you have concerns or if your condition changes or worsens in any way. Your cardiac enzymes were normal your bilirubin was slightly elevated recommend that you follow-up with your primary care doctor to have it rechecked sometime within the next 2 weeks. Coding Level of Care Code ED Strip [employer] Supervisor for Ishan Kendall
--- NOTE | 2023-08-19 10:51 | PC.PHAR ---
PT IS [facility] REQUEST FOR MED LIST 10:50AM 08/19/23
[2023-08-19 11:08] LABS: Basophils % 0.2 %; Eosinophils # 0.1 10^3/uL (0.0-0.8); Eosinophils % 0.5 %; Lymphocytes # 4.5 10^3/uL (0.8-4.8); Mean Corpuscular HGB Conc 33.9 g/dL (30-55); Mean Corpuscular Hemoglobin 34.2 pg (27-33); Mean Platelet Volume 9.1 fL (7.4-10.4); Monocytes # 0.6 10^3/uL (0.2-0.9); Monocytes % 4.5 %; Neutrophils # 8.65 10^3/uL (1.8-7.7); Neutrophils % 62.3 %; Nucleated Red Blood Cells % 0 %; Platelet Count 111 10^3/cmm (157-399); Red Blood Count 4.06 10^6/uL (3.85-5.65); Red Cell Distribution Width 13.2 % (12.1-15.1)
[2023-08-19 11:13] LABS: INR 1.33 (0.8-1.2)
[2023-08-19 11:23] LABS: Troponin(5th) Baseline 67 ng/L (0-15)
[2023-08-19 11:29] LABS: Alanine Aminotransferase 28 U/L (0-41); Alkaline Phosphatase 136 U/L (40-130); Blood Urea Nitrogen 13 mg/dL (8-23); Calcium 9.2 mg/dL (8.5-10.5); Carbon Dioxide 24 mmol/L (22-29); Chloride 98 mmol/L (98-107); Creatinine Clr Calc Pharmacy 65.1485; Glucose 115 mg/dL (65-115); Lipase 23 U/L (13-60); NT Pro B Type Natriuretic Pept 1602 pg/mL (0-450); Osmolality Calculated 279 mOsm/kg (285-295); Sodium 134 mmol/L (136-145); Total Bilirubin 1.9 mg/dL (0.15-1.2)
[2023-08-19 11:32] LABS: Anion Gap 16.5 (5-19); Aspartate Amino Transferase 28 U/L (0-40); Potassium 4.5 mmol/L (3.5-5.1)
--- NOTE | 2023-08-19 12:28 | ECG_ITS ---
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 Measurements Intervals [place] Rate: 68 P: 0 MT: 0 QRS: -83 QRSD: 210 T: 90 QT: 460 QTc: 490 Interpretive Statements ELECTRONIC VENTRICULAR PACEMAKER Compared to ECG 08/19/2023 10:27:34 No significant changes Electronically Signed On 08-20-2023 17:08:54 CDT by Jose Haile M.D. [email or web address]
[2023-08-19 13:37] LABS: Troponin 5 2HR 66.85 ng/L (0-15)
[2023-08-19 13:46] LABS: Troponin 5 2HR Delta -0.15 ABS# (0-10)
== END 2023-08-19 14:23 | disposition home or self-care (01) ==
PROVIDERS: Emergency Medicine; Emergency Provider Family Medicine; PCP Family Medicine
DX: R07.89 Other chest pain (principal); Z79.82 Long term (current) use of aspirin; Z79.01 Long term (current) use of anticoagulants; Z95.0 Presence of cardiac pacemaker; I10 Essential (primary) hypertension; Z87.891 Personal history of nicotine dependence
CPT/HCPCS: 36415; 71045; 80053; 83690; 83880; 84484; 85025; 85610; 93005; 99285

== ENCOUNTER → 2023-08-23 10:14 | Outpatient (BNVA) | payer OTHER, SELFPAY | PROVIDERS: PCP Family Medicine; Visit Provider Podiatrist Foot & Ankle Surgery | DX: M21.611 Bunion of right foot; M65.871 Other synovitis and tenosynovitis, right ankle and foot | CPT/HCPCS: 99213 ==

== ENCOUNTER 2023-08-31 16:01 | Emergency (ER) | payer OTHER, SELFPAY ==
[2023-08-31 16:05] VITALS: BP 191/96; PULSE 75; RESP 18; TEMP 36.9; O2SAT 97
--- NOTE | 2023-08-31 16:38 | ED_ITS ---
Documented by User: Kurt Shay DO 08/31/23 17:10 HPI - Headache 2 General: Chief Complaint: Headache Stated Complaint: dr see, headache, high bp Time Seen by Provider: 08/31/23 16:13 Source: patient Mode of arrival: ambulatory History of Present Illness: 87-year-old male presents emergency room from one of the walk-in clinics. He was seen there his blood pressure was 160/100 and he was complaining of some visual disturbances as well as a right sided bandlike temporal headache. Had some dizziness as well and has been in the emergency room several times recently. He does have a pacemaker he has a history of atrial fibrillation as well he is on diltiazem Eliquis and aspirin. Eliquis and aspirin. he has a history of atrial fibrillation as well he is on diltiazem. He does have a pacemaker and has been in the emergency room several times recently. Denies chest pain. Began around 3 this afternoon after he woke up from a nap. He reports some black and red dots that are flashing in the lower menjivar of vision. This is predominantly on the right but somewhat he says on the left. No pain in the eye no trauma no drainage. MD elicited complaint: headache Onset (ago): hour(s) Onset description: suddenly Location: right, frontal and temporal Quality & Timing: throbbing and pulsatile Exacerbating factors: none Relieving factors: nothing Associated symptoms: Deny chest pain, confusion, cough, diaphoresis, eye pain, eye redness, fever(s), lightheadedness, loss of vision, malaise, nausea, neck stiffness, numbness, paresthesias, photophobia, pre-syncope, rash, seizures, short of breath, sound sensitivity, syncope, vomiting or weakness Treatments prior to arrival: none Review of Systems 2 Const: Denies: fever(s), chills, malaise or diaphoresis ENMT: Denies: throat pain, ear or mastoid pain, nasal discharge or nasal congestion Card: Denies: chest pain, lightheadedness, syncope or pre-syncope Resp: Denies: dyspnea GI: Denies: abdominal pain, nausea or vomiting : Denies: dysuria, urinary frequency or urinary urgency Musc: Denies: neck pain or back pain Skin/Breast: Denies: rash Neuro: Denies: confusion PFSH ED 2 PFSH: Medical History History of nonmelanoma skin cancer Pain in right lower leg Lower extremity edema Pacemaker Hypertension Surgical History Status post laparoscopic appendectomy S/P cardiac pacemaker procedure S/P knee surgery S/P vasectomy Family History Mother Myocardial infarction Social History Smoking and tobacco/nicotine status: former use of tobacco/nicotine Alcohol intake: never Substance/Drug Use: never Physical Exam 2 Const: GENERAL APPEARANCE: cooperative and comfortable O RIENTATION/CONSCIOUSNESS: Yes awake, Yes oriented to person, Yes oriented to place and Yes oriented to time HENMT: COMMON NORMALS: normocephalic, atraumatic, hearing grossly normal bilaterally, external ears normal, EAC's normal, TM's normal bilaterally and Normal nasal mucous membranes and turbinates present HEAD & SCALP: n ormocephalic and atraumatic NOSE: Normal nasal mucous membranes and turbinates present EXTERNAL EAR: Yes external ears normal EXTERNAL AUDITORY CANAL: EAC's normal TYMPANIC MEMBRANE: TM's normal bilaterally Eye: COMMON NORMALS: Equal, round and reactive pupils present, EOMs intact bilaterally, conjunctivae normal and no scleral icterus CONJUNCTIVA: Yes conjunctivae normal PUPIL: Yes Equal, round and reactive pupils present D IRECT OPHTHALMOSCOPY: No photophobia Neck/C-Spine: COMMON NORMALS: full ROM, no lymphadenopathy, supple and no JVD Lymph: LYMPHATIC: no lymphadenopathy noted and no lymphedema noted Resp: COMMON NORMALS: normal respiratory effort, No retractions, No use of accessory muscles and clear to auscultation bilaterally AUSCULTATION: clear to auscultation bilaterally Cardio: COMMON NORMALS: no JVD, regular rate, regular rhythm and No murmurs present (Cardio) RATE: regular rate RHYTHM: regular rhythm GI: COMMON NORMALS: Soft to palpation and No hepatosplenomegaly present A USCULTATION: Yes normoactive bowel sounds PALPATION: Yes Soft to palpation, No Tenderness to palpation present (GI), No Guarding due to palpation present (GI) and Yes No hepatosplenomegaly present Extremity: COMMON NORMALS: normal to inspection, capillary refill normal, no clubbing, cyanosis or edema, no calf tenderness and no pedal edema Neuro: SENSORIUM/ORIENTATION: Yes oriented to person, Yes oriented to place and Yes oriented to time OTHER: Pupils equal reactive light extraocular moods. No visual field defects. With covering of the left of the right eye patient reports initially no visual disturbances in the left eye when the right eye is covered when the left eye is covered he reports seeing spots in the lower menjivar of vision in the right eye when I asked him if it was only in his right eye he admits that he still could see some in the left eye but it was less than in the right. No focal neurologic deficits no facial asymmetry normal strength and sensation in all extremities. Psych: COMMON NORMALS: mental status grossly normal Skin: COMMON NORMALS: no rashes or lesions noted GENERAL SKIN EXAM: no rashes or lesions noted Course 2 Vital Signs: Vital signs: Vital Signs Temperature 98.4 F 08/31/23 16:05 Pulse Rate 64 08/31/23 18:24 Respiratory Rate 22 H 08/31/23 18:24 Blood Pressure 130/70 08/31/23 18:24 Pulse Oximetry 92 08/31/23 18:24 Oxygen Delivery Me thod Room Air 08/31/23 18:24 MDM - Headache Medical Decision Making EKG shows paced rhythm Care signed out to Dr. Phelps at change of shift. See final notes for diagnosis and disposition. Medical Records I reviewed the patient's medical records. Lab Data I reviewed the patient's lab results. 08/31/23 16:55 08/31/23 16:[address] 08/31/23 16:52 IMPRESSION: No acute intracranial abnormality. Laboratory Results WBC 18.19 10^3/uL (3.29-11.43) H 08/31/23 16:55 RBC 3.73 10^6/uL (3.85-5.65) L 08/31/23 16:55 Hgb 12.60 g/dL (11.27-16.99) 08/31/23 16:55 Hct 37.5 % (37-53) 08/31/23 16:55 MCV 100.5 fl (82-101) 08/31/23 16:55 MCH 33.8 pg (27-33) H 08/31/23 16:55 MCHC 33.6 g/dL (30-55) 08/31/23 16:55 RDW 13.9 % (12.1-15.1) 08/31/23 16:55 Plt Count 243 10^3/cmm (157-399) 08/31/23 16:55 MPV 9.5 fL (7.4-10.4) 08/31/23 16:55 Neut % (Auto) 66.9 % 08/31/23 16:55 Lymph % (Auto) 29.0 % 08/31/23 16:55 [place] % (Auto) 3.1 % 08/31/23 16:55 Eos % (Auto) 0.0 % 08/31/23 16:55 Baso % (Auto) 0.2 % 08/31/23 16:55 Neut # (Auto) 12.17 10^3/uL (1.8-7.7) H 08/31/23 16:55 Lymph # (Auto) 5.3 10^3/uL (0.8-4.8) H 08/31/23 16:55 [place] # (Auto) 0.6 10^3/uL (0.2-0.9) 08/31/23 16:55 Eos # (Auto) 0.0 10^3/uL (0.0-0.8) 08/31/23 16:55 Baso # (Auto) 0.0 10^3/uL (0.0-0.1) 08/31/23 16:55 Nucleated RBC % (auto) 0 % 08/31/23 16:55 Nucleated RBCs # 0.0 /100WBC 08/31/23 16:55 Sodium 129 mmol/L (136-145) L 08/31/23 16:55 Potassium 4.6 mmol/L (3.5-5.1) 08/31/23 16:55 Chloride 94 mmol/L (98-107) L 08/31/23 16:55 Carbon Dioxide 25 mmol/L (22-29) 08/31/23 16:55 Anion Gap 14.6 (5-19) 08/31/23 16:55 BUN 19 mg/dL (8-23) 08/31/23 16:55 Creatinine 0.9 mg/dL (0.7-1.2) 08/31/23 16:55 GFR Calculation Not Reportable 08/31/23 16:55 Glucose 153 mg/dL (65-115) H 08/31/23 16:55 Calculated Osmolality 273 mOsm/kg (285-295) L 08/31/23 16:55 Calcium 9.2 mg/dL (8.5-10.5) 08/31/23 16:55 Total Bilirubin 1.0 mg/dL (0.15-1.2) 08/31/23 16:55 AST 39 U/L (0-40) 08/31/23 16:55 ALT 48 U/L (0-41) H 08/31/23 16:55 Alkaline Phosphatase 246 U/L (40-130) H 08/31/23 16:55 Total Protein 6.5 g/dL (6.6-8.7) L 08/31/23 16:55 Albumin 3.8 g/dL (3.5-5.2) 08/31/23 16:55 Globulin 2.7 g/dL (1.3-4.6) 08/31/23 16:55 No radiology studies performed this visit Discharge Plan Discharge Patient Disposition: Home Clinical Impression: Alteration in vision Hypertension Qualifiers: Hypertension type: unspecified Qualified Code(s): I10 - Essential (primary) hypertension Headache Qualifiers: Headache type: unspecified Headache chronicity pattern: acute headache I ntractability: not intractable Qualified Code(s): R51.9 - Headache, unspecified Condition: Stable Prescriptions: No Action dutasteride 0.5 mg capsule 0.5 mg PO BEDTIME fluticasone propionate 50 mcg/actuation spray,suspension 2 spray intranasal DAILY PRN (Reason: allergies) Rx Instructions: administer into each nostril gabapentin 100 mg capsule See Rx Instructions .ROUTE .COMPLEX Rx Instructions: TAKE 1 CAPSULE BY MOUTH IN THE MORNING AND 2 CAPSULES IN THE EVENING FOR NERVE PAIN. loratadine 10 mg tablet 10 mg PO DAILY PRN (Reason: allergies) albuterol sulfate [ProAir HFA] 90 mcg/actuation HFA aerosol inhaler 2 puff inhalation BID aspirin [Adult Low Dose Aspirin] 81 mg tablet,delayed release (DR/EC) 81 mg PO DAILY (DME) Custom Molded Copolymer Orthotics and Orthopedic Shoes See Rx Instructions .Route .MEDSUPPLY Qty: 1 0RF Rx Instructions: As directed The [employer] ferrous sulfate [Iron (ferrous sulfate)] 325 mg (65 mg iron) Tablet 325 mg PO DAILY diltiazem HCl 120 mg capsule,extended release 24hr 120 mg PO QAM cyclobenzaprine 10 mg Tablet 10 mg PO TID PRN (Reason: Muscle Spasm) clobetasol 0.05 % Cream See Rx Instructions .ROUTE .COMPLEX Rx Instructions: APPLY SPARINGLY TO AFFECTED AREA(S) TOPICALLY TWICE DAILY TO RASH ON HANDS UNTIL RESOLVED. DO NOT APPLY TO FACE, GROIN OR SKIN FOLDS. melatonin 3 mg Tablet 6 mg PO BEDTIME PRN (Reason: Sleep) olodaterol 2.5 mcg/actuation Mist 2 inh INHALATION DAILY mometasone 200 mcg/actuation Hfa Aerosol Inhaler 1 puff INHALATION BID docusate sodium [Colace] 100 mg capsule 100 mg PO BID Qty: 14 0RF multivitamin Tablet 1 tab PO DAILY vitamin A 2,400 mcg Capsule 2,400 mcg PO DAILY saw palmetto 160 mg Capsule 160 mg PO TID Rx Instructions: give with meal/snack vitamin B complex Capsule 1 cap PO DAILY glucosamine-chondroitin [Osteo Bi-Flex] 250-200 mg Tablet 1 tab PO BID Rx Instructions: give after food/meal morning and evening turmeric 400 mg Capsule 400 mg PO BID Eliquis 5 mg tablet 5 mg PO BID potassium gluconate 595 mg (99 mg) Tablet 595 mg PO DAILY Discharge Orders: Discharge ED (Routine); Ordered 08/31/23 Ordered By: Azael Phelps Referrals: Shayla Mesa MD [Primary Care Provider] - Patient Instructions: Vision Problems, Headache, Hypertension in the Older Adult (ED) Activity Restrictions/Additional Instructions: You have been referred to case management to make a referral to ophthalmology for further eye exam and workup. Please follow-up with your family practice physician in the next 7 to 10 days for further evaluation and treatment also. If your symptoms worsen please feel free to return to the ER. Thank you for choosing [facility] for your healthcare needs today. Please realize that you were seen in the emergency department and that we are providing you with an emergency medical screening exam and this may not be a complete and all exclusive of all testing and/or medical workup we may need to determine your element or severity of your illness. It is very important that you follow-up as instructed with your primary care provider or specialist for the additional evaluation and to discuss your medical treatment plan. You may return to the emergency department should you have concerns or if your condition changes or worsens in any way. Sign Out Sign Out Data: Patient Sign Out occurred on 08/31/23 at 17:03. Patient's care was discussed, and care was transferred from Kurt Shay DO to LARA Storey. Coding Level of Care Code ED Life Enrichment Assistant for Chg Fwd Documented by User: Azael Phelps DO 08/31/23 19:50 HPI - Headache 2 General: Chief Complaint: Headache Stated Complaint: dr see, headache, high bp Time Seen by Provider: 08/31/23 16:13 PFSH ED 2 PFSH: Medical History History of nonmelanoma skin cancer Pain in right lower leg Lower extremity edema Pacemaker Hypertension Surgical History Status post laparoscopic appendectomy S/P cardiac pacemaker procedure S/P knee surgery S/P vasectomy Family History Mother Myocardial infarction Social History Smoking and tobacco/nicotine status: former use of tobacco/nicotine Alcohol intake: never Substance/Drug Use: never Course 2 Vital Signs: Vital signs: Vital Signs Temperature 98.4 F 08/31/23 16:05 Pulse Rate 64 08/31/23 18:24 Respiratory Rate 22 H 08/31/23 18:24 Blood Pressure 130/70 08/31/23 18:24 Pulse Oximetry 92 08/31/23 18:24 Oxygen Delivery Me thod Room Air 08/31/23 18:24 MDM - Headache Medical Decision Making EKG shows paced rhythm Care signed out to Dr. Phelps at change of shift. See final notes for diagnosis and disposition. Lab work was reviewed, patient elevated white count of 18,000 for no known reason. Otherwise lab work was essentially unremarkable for any acute causes. Head CT was read off as negative. Patient was given a shot of Toradol and his headache went away. Patient has been seeing Dr. Ligia Jha ophthalmology but would like to see someone else. Patient will be referred to ophthalmology per case management. Patient be discharged from the ER. Lab Data 08/31/23 16:55 08/31/23 16:[address] 08/31/23 16:52 IMPRESSION: No acute intracranial abnormality. Laboratory Results WBC 18.19 10^3/uL (3.29-11.43) H 08/31/23 16:55 RBC 3.73 10^6/uL (3.85-5.65) L 08/31/23 16:55 Hgb 12.60 g/dL (11.27-16.99) 08/31/23 16:55 Hct 37.5 % (37-53) 08/31/23 16:55 MCV 100.5 fl (82-101) 08/31/23 16:55 MCH 33.8 pg (27-33) H 08/31/23 16:55 MCHC 33.6 g/dL (30-55) 08/31/23 16:55 RDW 13.9 % (12.1-15.1) 08/31/23 16:55 Plt Count 243 10^3/cmm (157-399) 08/31/23 16:55 MPV 9.5 fL (7.4-10.4) 08/31/23 16:55 Neut % (Auto) 66.9 % 08/31/23 16:55 Lymph % (Auto) 29.0 % 08/31/23 16:55 [place] % (Auto) 3.1 % 08/31/23 16:55 Eos % (Auto) 0.0 % 08/31/23 16:55 Baso % (Auto) 0.2 % 08/31/23 16:55 Neut # (Auto) 12.17 10^3/uL (1.8-7.7) H 08/31/23 16:55 Lymph # (Auto) 5.3 10^3/uL (0.8-4.8) H 08/31/23 16:55 [place] # (Auto) 0.6 10^3/uL (0.2-0.9) 08/31/23 16:55 Eos # (Auto) 0.0 10^3/uL (0.0-0.8) 08/31/23 16:55 Baso # (Auto) 0.0 10^3/uL (0.0-0.1) 08/31/23 16:55 Nucleated RBC % (auto) 0 % 08/31/23 16:55 Nucleated RBCs # 0.0 /100WBC 08/31/23 16:55 Sodium 129 mmol/L (136-145) L 08/31/23 16:55 Potassium 4.6 mmol/L (3.5-5.1) 08/31/23 16:55 Chloride 94 mmol/L (98-107) L 08/31/23 16:55 Carbon Dioxide 25 mmol/L (22-29) 08/31/23 16:55 Anion Gap 14.6 (5-19) 08/31/23 16:55 BUN 19 mg/dL (8-23) 08/31/23 16:55 Creatinine 0.9 mg/dL (0.7-1.2) 08/31/23 16:55 GFR Calculation Not Reportable 08/31/23 16:55 Glucose 153 mg/dL (65-115) H 08/31/23 16:55 Calculated Osmolality 273 mOsm/kg (285-295) L 08/31/23 16:55 Calcium 9.2 mg/dL (8.5-10.5) 08/31/23 16:55 Total Bilirubin 1.0 mg/dL (0.15-1.2) 08/31/23 16:55 AST 39 U/L (0-40) 08/31/23 16:55 ALT 48 U/L (0-41) H 08/31/23 16:55 Alkaline Phosphatase 246 U/L (40-130) H 08/31/23 16:55 Total Protein 6.5 g/dL (6.6-8.7) L 08/31/23 16:55 Albumin 3.8 g/dL (3.5-5.2) 08/31/23 16:55 Globulin 2.7 g/dL (1.3-4.6) 08/31/23 16:55 Discharge Plan Discharge Patient Disposition: Home Clinical Impression: Alteration in vision Hypertension Qualifiers: Hypertension type: unspecified Qualified Code(s): I10 - Essential (primary) hypertension Headache Qualifiers: Headache type: unspecified Headache chronicity pattern: acute headache I ntractability: not intractable Qualified Code(s): R51.9 - Headache, unspecified Condition: Stable Prescriptions: No Action dutasteride 0.5 mg capsule 0.5 mg PO BEDTIME fluticasone propionate 50 mcg/actuation spray,suspension 2 spray intranasal DAILY PRN (Reason: allergies) Rx Instructions: administer into each nostril gabapentin 100 mg capsule See Rx Instructions .ROUTE .COMPLEX Rx Instructions: TAKE 1 CAPSULE BY MOUTH IN THE MORNING AND 2 CAPSULES IN THE EVENING FOR NERVE PAIN. loratadine 10 mg tablet 10 mg PO DAILY PRN (Reason: allergies) albuterol sulfate [ProAir HFA] 90 mcg/actuation HFA aerosol inhaler 2 puff inhalation BID aspirin [Adult Low Dose Aspirin] 81 mg tablet,delayed release (DR/EC) 81 mg PO DAILY (DME) Custom Molded Copolymer Orthotics and Orthopedic Shoes See Rx Instructions .Route .MEDSUPPLY Qty: 1 0RF Rx Instructions: As directed The [employer] ferrous sulfate [Iron (ferrous sulfate)] 325 mg (65 mg iron) Tablet 325 mg PO DAILY diltiazem HCl 120 mg capsule,extended release 24hr 120 mg PO QAM cyclobenzaprine 10 mg Tablet 10 mg PO TID PRN (Reason: Muscle Spasm) clobetasol 0.05 % Cream See Rx Instructions .ROUTE .COMPLEX Rx Instructions: APPLY SPARINGLY TO AFFECTED AREA(S) TOPICALLY TWICE DAILY TO RASH ON HANDS UNTIL RESOLVED. DO NOT APPLY TO FACE, GROIN OR SKIN FOLDS. melatonin 3 mg Tablet 6 mg PO BEDTIME PRN (Reason: Sleep) olodaterol 2.5 mcg/actuation Mist 2 inh INHALATION DAILY mometasone 200 mcg/actuation Hfa Aerosol Inhaler 1 puff INHALATION BID docusate sodium [Colace] 100 mg capsule 100 mg PO BID Qty: 14 0RF multivitamin Tablet 1 tab PO DAILY vitamin A 2,400 mcg Capsule 2,400 mcg PO DAILY saw palmetto 160 mg Capsule 160 mg PO TID Rx Instructions: give with meal/snack vitamin B complex Capsule 1 cap PO DAILY glucosamine-chondroitin [Osteo Bi-Flex] 250-200 mg Tablet 1 tab PO BID Rx Instructions: give after food/meal morning and evening turmeric 400 mg Capsule 400 mg PO BID Eliquis 5 mg tablet 5 mg PO BID potassium gluconate 595 mg (99 mg) Tablet 595 mg PO DAILY Discharge Orders: Discharge ED (Routine); Ordered 08/31/23 Ordered By: Azael Phelps Referrals: Shayla Mesa MD [Primary Care Provider] - Patient Instructions: Vision Problems, Headache, Hypertension in the Older Adult (ED) Activity Restrictions/Additional Instructions: You have been referred to case management to make a referral to ophthalmology for further eye exam and workup. Please follow-up with your family practice physician in the next 7 to 10 days for further evaluation and treatment also. If your symptoms worsen please feel free to return to the ER. Thank you for choosing [facility] for your healthcare needs today. Please realize that you were seen in the emergency department and that we are providing you with an emergency medical screening exam and this may not be a complete and all exclusive of all testing and/or medical workup we may need to determine your element or severity of your illness. It is very important that you follow-up as instructed with your primary care provider or specialist for the additional evaluation and to discuss your medical treatment plan. You may return to the emergency department should you have concerns or if your condition changes or worsens in any way. Sign Out Sign Out Data: Patient Sign Out occurred on 08/31/23 at 17:03. Patient's care was discussed, and care was transferred from Kurt Shay DO to LARA Storey. Coding Level of Care Code ED Life Enrichment Assistant for Ishan Kendall
--- NOTE | 2023-08-31 16:51 | ECG_ITS ---
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 Measurements Intervals Ava Rate: 68 P: 0 LA: 0 QRS: -79 QRSD: 193 T: 88 QT: 447 QTc: 477 Interpretive Statements ELECTRONIC VENTRICULAR PACEMAKER ABNORMAL RHYTHM ECG Compared to ECG 08/19/2023 12:28:11 No significant changes Electronically Signed On 08-31-2023 21:42:43 CDT by Tanna Guerin M.D. [id number]
--- NOTE | 2023-08-31 16:52 | CTR_ITS ---
PROCEDURE INFORMATION: Exam: CT Head Without Contrast Exam date and time: 08/31/2023 5:16 PM Age: 87 years old Clinical indication: Visual disturbance; Additional info: Visual disturbances, elevated blood pressure TECHNIQUE: Imaging protocol: Computed tomography of the head without contrast. Radiation optimization: All CT scans at this facility use at least one of these dose optimization techniques: automated exposure control; mA and/or kV adjustment per patient size (includes targeted exams where dose is matched to clinical indication); or iterative reconstruction. COMPARISON: CT head wo/w con [id number] 08/28/2022 4:06 PM RADIATION DOSE METRICS: Total DLP (mGy-cm): 1101.59 FINDINGS: Brain: Mild diffuse cortical volume loss. Severe hypodensities in supratentorial periventricular and subcortical white matter, consistent with microangiopathy. No intracranial hemorrhage. Cerebral ventricles: No ventriculomegaly. Paranasal sinuses: Postsurgical changes of the paranasal sinuses. Mucosal thickening in the ethmoid air cells. No air-fluid level. Mastoid air cells: Visualized mastoid air cells are well aerated. Orbital cavities: Prior cataract surgery. Bones/joints: Unremarkable. No acute fracture. Soft tissues: Unremarkable. Vasculature: No hyperdense artery. CT/CT head wo con* [id number] IMPRESSION: No acute intracranial abnormality.
[2023-08-31 17:00] VITALS: BP 168/74; PULSE 61; RESP 18; O2SAT 96
[2023-08-31 17:04] LABS: Basophils % 0.2 %; Hematocrit 37.5 % (37-53); Lymphocytes # 5.3 10^3/uL (0.8-4.8); Mean Corpuscular HGB Conc 33.6 g/dL (30-55); Mean Corpuscular Hemoglobin 33.8 pg (27-33); Mean Corpuscular Volume 100.5 fl (82-101); Mean Platelet Volume 9.5 fL (7.4-10.4); Monocytes # 0.6 10^3/uL (0.2-0.9); Monocytes % 3.1 %; Neutrophils # 12.17 10^3/uL (1.8-7.7); Neutrophils % 66.9 %; Nucleated Red Blood Cells % 0 %; Platelet Count 243 10^3/cmm (157-399); Red Blood Count 3.73 10^6/uL (3.85-5.65); Red Cell Distribution Width 13.9 % (12.1-15.1); White Blood Count 18.19 10^3/uL (3.29-11.43)
[2023-08-31 17:23] LABS: Alanine Aminotransferase 48 U/L (0-41); Albumin Level 3.8 g/dL (3.5-5.2); Alkaline Phosphatase 246 U/L (40-130); Anion Gap 14.6 (5-19); Aspartate Amino Transferase 39 U/L (0-40); Blood Urea Nitrogen 19 mg/dL (8-23); Calcium 9.2 mg/dL (8.5-10.5); Carbon Dioxide 25 mmol/L (22-29); Chloride 94 mmol/L (98-107); Creatinine Clr Calc Pharmacy 65.5934; Globulin 2.7 g/dL (1.3-4.6); Glucose 153 mg/dL (65-115); Osmolality Calculated 273 mOsm/kg (285-295); Potassium 4.6 mmol/L (3.5-5.1); Sodium 129 mmol/L (136-145); Total Protein 6.5 g/dL (6.6-8.7)
[2023-08-31 17:45] VITALS: BP 155/77; PULSE 60; RESP 18; O2SAT 92
[2023-08-31 18:24] VITALS: BP 130/70; PULSE 64; RESP 22; O2SAT 92
[2023-08-31] MEDS: ketorolac 30 mg/mL INJ IVP (18:31)
[2023-08-31 19:50] VITALS: BP 132/65; PULSE 76; RESP 16; O2SAT 91
[2023-08-31 20:23] VITALS: BP 132/65; PULSE 76; RESP 16; TEMP 36.9; O2SAT 91
== END 2023-08-31 20:27 | disposition home or self-care (01) ==
PROVIDERS: Family Medicine; Emergency Provider Emergency Medicine; PCP Family Medicine
DX: R51.9 Headache, unspecified (principal); I10 Essential (primary) hypertension; H53.9 Unspecified visual disturbance; Z79.82 Long term (current) use of aspirin; Z79.01 Long term (current) use of anticoagulants; Z87.891 Personal history of nicotine dependence; Z95.0 Presence of cardiac pacemaker
CPT/HCPCS: 70450; 80053; 85025; 93005; 96374; 99285; J1885

== ENCOUNTER 2023-09-01 07:35 | Inpatient (IN) | payer OTHER, SELFPAY ==
[2023-09-01] VITALS (65 sets, daily range): BP systolic 132–183; BP diastolic 57–86; PULSE 60–75; RESP 17–33; TEMP 36.7–38.7; O2SAT 88–98; BMI 25.7
--- NOTE | 2023-09-01 07:39 | XRR_ITS ---
PROCEDURE INFORMATION: Exam: XR Chest Exam date and time: 09/01/2023 7:42 AM Age: 87 years old Clinical indication: Cough and dyspnea; Prior surgery; Surgery date: 6+ months; Surgery type: Pacer; Additional info: Dyspnea/cough TECHNIQUE: Imaging protocol: Radiologic exam of the chest. Views: 1 view. COMPARISON: CR XR chest 1V portable [id number] 08/19/2023 10:53 AM FINDINGS: Tubes, catheters and devices: Atrioventricular pacemaker. Lungs: Hypoinflation and interstitial disease. Pleural spaces: No significant pleural effusion. Heart/Mediastinum: Valve prosthesis. No cardiomegaly. Vasculature: Calcification of the thoracic aorta. Bones/joints: Osteopenia and degenerative change. XR/XR chest 1V portable [id number] IMPRESSION: 1. Hypoinflation and interstitial disease. 2. Additional findings as described above.
--- NOTE | 2023-09-01 07:40 | ECG_ITS ---
[facility] Test Date: 2023-09-01 Pat Name: Eddy Miner Department: Room: Gender: Male Cupola Man: : 1936-06-13 Requested By: Kurt Montero Order Number: [id number] Demarco MD: Tanna Guerin M.D. Measurements Intervals [place]on Rate: 61 P: 0 SC: 0 QRS: -81 QRSD: 196 T: 83 QT: 446 QTc: 452 Interpretive Statements ELECTRONIC VENTRICULAR PACEMAKER ABNORMAL RHYTHM ECG INTERPRETATION BASED ON A DEFAULT AGE OF 40 YEARS Compared to ECG 08/31/2023 16:51:58 No significant changes Electronically Signed On 09-01-2023 18:29:55 CDT by Tanna Guerin M.D. [id number] f
[2023-09-01 07:56] LABS: Basophils % 0.1 %; Lymphocytes # 7.3 10^3/uL (0.8-4.8); Lymphocytes % 39.9 %; Mean Corpuscular Hemoglobin 33.7 pg (27-33); Mean Corpuscular Volume 99.2 fl (82-101); Mean Platelet Volume 9.4 fL (7.4-10.4); Monocytes # 0.7 10^3/uL (0.2-0.9); Monocytes % 4.1 %; Neutrophils # 10.08 10^3/uL (1.8-7.7); Neutrophils % 55.2 %; Nucleated Red Blood Cells % 0 %; Platelet Count 243 10^3/cmm (157-399); Red Blood Count 3.53 10^6/uL (3.85-5.65); White Blood Count 18.26 10^3/uL (3.29-11.43)
[2023-09-01 08:15] LABS: Alanine Aminotransferase 39 U/L (0-41); Albumin Level 3.4 g/dL (3.5-5.2); Alkaline Phosphatase 202 U/L (40-130); Anion Gap 19.5 (5-19); Aspartate Amino Transferase 30 U/L (0-40); Blood Urea Nitrogen 24 mg/dL (8-23); Calcium 8.8 mg/dL (8.5-10.5); Carbon Dioxide 22 mmol/L (22-29); Chloride 94 mmol/L (98-107); Creatinine Clr Calc Pharmacy 52.6962; Globulin 2.6 g/dL (1.3-4.6); Glucose 107 mg/dL (65-115); Osmolality Calculated 277 mOsm/kg (285-295); Potassium 4.5 mmol/L (3.5-5.1); Sodium 131 mmol/L (136-145); Total Bilirubin 1.4 mg/dL (0.15-1.2); Troponin(5th) Baseline 46 ng/L (0-15)
[2023-09-01 08:18] LABS: Slide Review Slide Review Perform
--- NOTE | 2023-09-01 08:33 | PC.PHAR ---
faxed [place] for med list
--- NOTE | 2023-09-01 08:50 | CT_ITS ---
WS: [id number] CT HEAD NONCONTRAST HISTORY: fall/AMS TECHNIQUE: Contiguous axial imaging performed through the brain in 2.5 mm imaging. Bone and soft tiss ue windows. Sagittal and coronal reformats reviewed. All CT scans at [facility] use at least one of these dose optimization techniques: automated exposure control; mA and/or kV adjustment per pa tient size (includes targeted exams where dose is matched to clinical indication); or iterative recon struction. DLP: 2136.33 mGy.cm COMPARISON: 08/31/2023 No acute intracranial hemorrhage, midline shift or mass effect. 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 No prior infarct. Posterior fossa is negat eliel. Ventricles: Normal size with no hydrocephalus. No inferior displacement of the cerebellar tonsils. Paranasal sinuses: Minimal mucoperiosteal thickening in the ethmoid air cells. No air-fluid levels. Mastoid air cells: Well pneumatized. Calvarium and scalp: Skull is intact with no soft tissue edema or swelling. IMPRESSION: 1. Stable noncontrast head CT since 08/31/2023. 2. No acute intracranial hemorrhage. 3. 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
--- NOTE | 2023-09-01 08:51 | ED_ITS ---
HPI - Weakness 2 General: Chief complaint: ER Hold Stated complaint: weaknesss, fall Time Seen by Provider: 09/01/23 07:36 Source: patient Mode of arrival: EMS History of Present Illness: 87-year-old male presents to the emergen cy room patient has altered mental status generalized weakness. He was seen yesterday he had not felt well and was referred to the emergency room from the walk-in clinic with visual disturbances and elevated blood pressure his blood pressure did improve by the time he arrived here. CT of his head was done and was unremarkable he is on apixaban. His headache improved. He was discharged home with referral to ophthalmology for evaluation for visual changes. He had no other focal neurologic deficits. He is difficult to converse with at this time. He will answer questions but struggles with completing his answers and seems to doze off. His white count was elevated yesterday. But he had no fever. MD Complaint: generalized weakness Onset (ago): minute(s) Duration: constant Relieving factors: none Exacerbating factors: none Associated symptoms: Denies chest pain, chills, confusion, melena, decreased appetite, diaphoresis, dysuria, easy bruising, fever(s), headache(s), myalgias, nausea, rash, short of breath, syncope or vomiting Review of Systems 2 Const: Denies: fever(s), chills or diaphoresis Card: Denies: chest pain or syncope Resp: Denies: dyspnea GI: Denies: nausea, vomiting or melena : Denies: dysuria Musc: Denies: neck pain or back pain Skin/Breast: Denies: rash Neuro: Denies: headache(s) or confusion Adarsh/Lymph: Denies: easy bruising PFSH ED 2 PFSH: Medical History Presence of permanent cardiac pacemaker Severe aortic stenosis History of nonmelanoma skin cancer Pain in right lower leg Lower extremity edema Pacemaker Hypertension Surgical History Status post transcatheter aortic valve replacement (TAVR) using bioprosthesis Status post laparoscopic appendectomy S/P cardiac pacemaker procedure S/P knee surgery S/P vasectomy Family History Mother Myocardial infarction Social History Smoking and tobacco/nicotine status: former use of tobacco/nicotine Alcohol intake: never Substance/Drug Use: never Physical Exam 2 Const: GENERAL APPEARANCE: cooperative ORIENTATION/CONSCIOUSNESS: Yes awake, Yes oriented to person, Yes oriented to place and Yes oriented to time HENMT: COMMON NORMALS: normocephalic, atraumatic and hearing grossly normal bilaterally HEAD & SCALP: normocephalic and atraumatic Resp: COMMON NORMALS: normal respiratory effort, No retractions, No use of accessory muscles and clear to auscultation bilaterally AUSCULTATION: clear to auscultation bilaterally Cardio: COMMON NORMALS: regular rate, regular rhythm and No murmurs present (Cardio) RATE: regular rate RHYTHM: regular rhythm GI: COMMON NORMALS: Soft to palpation and No hepatosplenomegaly present A USCULTATION: Yes normoactive bowel sounds PALPATION: Yes Soft to palpation, No Tenderness to palpation present (GI), No Guarding due to palpation present (GI) and Yes No hepatosplenomegaly present Extremity: COMMON NORMALS: normal to inspection, capillary refill normal, no clubbing, cyanosis or edema, no calf tenderness and no pedal edema Neuro: SENSORIUM/ORIENTATION: Yes oriented to person, Yes oriented to place and Yes oriented to time Skin: COMMON NORMALS: no rashes or lesions noted GENERAL SKIN EXAM: no rashes or lesions noted Course 2 Vital Signs: Vital signs: Vital Signs Temperature 98.1 F 09/10/23 11:37 Pulse Rate 60 09/10/23 11:37 Respiratory Rate 16 09/10/23 11:37 Blood Pressure 167/76 09/10/23 12:03 Pulse Oximetry 94 09/10/23 11:37 Oxygen Delivery Me thod Room Air 09/10/23 11:37 Oxygen Flow Rate 3 09/06/23 12:46 Fraction of Inspir ed Oxygen 21 09/04/23 06:14 MDM - Weakness Medical Decision Making Patient has a history of atrial fibrillation recently had a TAVR. Acute encephalopathy with fever and elevated white count no definitive finding labs and imaging reviewed with patient. Discussed with hospitalist will admit prophylactically start antibiotics. May need to consider lumbar tap however he is still on his Eliquis and has been taking it up until he came to the ER today. Medical Records I reviewed the patient's medical records. Lab Data I reviewed the patient's lab results. 09/10/23 05:01 09/10/23 05:01 Radiology Impressions Abdomen/Pelvis CT 09/05/23 08:30 IMPRESSION: 1. When compared with recent study from 09/01/2023, there are new fluid collections in the presacral region in the right anterior pelvis. These do not appear to represent organized abscesses at this point in time . The right anterior fluid collection lies adjacent to portions of the colon and small bowel loops . There is mild small bowel wall thickening involving portions of the ileum as well as the duodenum suggesting inflammation/enteritis 2. Negative for free or extraluminal air 3. 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 4. Moderate amount of stool in the colon with a large amount of stool in the rectum worrisome for impending fecal impaction. Mildly dilated small bowel loops may indicate an adynamic ileus. 5. Vickers catheter. Wall thickening bladder 6. Enlarged prostate gland 7. Bilateral inguinal hernias. Bladder extends minimally into the mouth of the right hernia 8. Bilateral renal cortical scarring. Probable cysts both kidneys. Negative for hydronephrosis. New line 9. Interval increase in size of bilateral pleural effusions and increase in bibasilar atelectasis 9. TAVR. Pacemaker. Small pleural effusion. COMMENTS: Consistent with the [employer]'s Incidental Findings Committee white paper (J Am Jorgito Radiol 2018): Any incidental renal lesion less than 1 cm or classified as too small to characterize, or any incidental cystic renal lesion characterized as simple-appearing, is likely benign. No follow-up imaging is recommended for these lesions per consensus recommendations based on imaging criteria. Lumbar Spine CT 09/08/23 11:35 IMPRESSION: No evidence of discitis or osteomyelitis. Shoulder X-Ray 09/08/23 11:35 IMPRESSION: No acute findings. Chest/Abdomen/Pelvis CT 09/08/23 11:37 IMPRESSION: 1. Moderate bilateral pleural effusions slightly increased compared to previous with compressive atelectasis in the lung bases. Cardiomegaly. 2. No evidence of drainable abscess or fluid collection in the pelvis. Trace benign-appearing fluid in the RIGHT pericolic gutter. This is improved compared to previous. 3. Vickers catheter. Enlarged prostate. 4. Gallbladder appears normal. 5. 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 Thoracentesis Ultrasound 09/10/23 06:00 IMPRESSION: 1. Uncomplicated ultrasound-guided LEFT thoracentesis. 2. Compressive atelectasis RIGHT lower lobe. No safe window access to perform RIGHT lower lobe thoracentesis Chest X-Ray 09/10/23 11:57 IMPRESSION: Properly positioned right arm PICC line which was confirmed over the phone with the technologist at 1:05 p.m. Interstitial lung opacities in the right lung appear increased compared to the examination of earlier today. Laboratory Results WBC 18.26 10^3/uL (3.29-11.43) H 09/01/23 07:45 RBC 3.53 10^6/uL (3.85-5.65) L 09/01/23 07:45 Hgb 11.90 g/dL (11.27-16.99) 09/01/23 07:45 Hct 35.0 % (37-53) L 09/01/23 07:45 MCV 99.2 fl (82-101) 09/01/23 07:45 MCH 33.7 pg (27-33) H 09/01/23 07:45 MCHC 34.0 g/dL (30-55) 09/01/23 07:45 RDW 14.0 % (12.1-15.1) 09/01/23 07:45 Plt Count 243 10^3/cmm (157-399) 09/01/23 07:45 MPV 9.4 fL (7.4-10.4) 09/01/23 07:45 Neut % (Auto) 55.2 % 09/01/23 07:45 Lymph % (Auto) 39.9 % 09/01/23 07:45 [place] % (Auto) 4.1 % 09/01/23 07:45 Eos % (Auto) 0.0 % 09/01/23 07:45 Baso % (Auto) 0.1 % 09/01/23 07:45 Neut # (Auto) 10.08 10^3/uL (1.8-7.7) H 09/01/23 07:45 Lymph # (Auto) 7.3 10^3/uL (0.8-4.8) H 09/01/23 07:45 [place] # (Auto) 0.7 10^3/uL (0.2-0.9) 09/01/23 07:45 Eos # (Auto) 0.0 10^3/uL (0.0-0.8) 09/01/23 07:45 Baso # (Auto) 0.0 10^3/uL (0.0-0.1) 09/01/23 07:45 Nucleated RBC % (auto) 0 % 09/01/23 07:45 Nucleated RBCs # 0.0 /100WBC 09/01/23 07:45 PT 21.80 SECONDS (12.1-14.9) H 09/01/23 07:45 INR 1.83 (0.8-1.2) H 09/01/23 07:45 Specimen Type Arterial 09/01/23 08:50 Sample Site Radial, right 09/01/23 08:50 ABG pH 7.55 (7.35-7.45) H 09/01/23 08:50 ABG pCO2 27.9 mmHg (35-45) L 09/01/23 08:50 ABG pO2 70.2 mmHg (80.0-100.0) L 09/01/23 08:50 ABG PO2/FiO2 Ratio 0 09/01/23 08:50 ABG HCO3 24.1 mmol/L (22-26) 09/01/23 08:50 ABG O2 Saturation 95.9 09/01/23 08:50 ABG Base Excess 2.5 mmol/L (-2.0-2.0) H 09/01/23 08:50 Benjamin Test Pos 09/01/23 08:50 A-a O2 Gradient 5.8 mmHg (5-10) 09/01/23 08:50 Hematocrit 38.9 % (42-52) L 09/01/23 08:50 Hgb O2 Saturation 94.5 % (95-100) L 09/01/23 08:50 Carboxyhemoglobin 1.3 %THgb (0.4-20.1) 09/01/23 08:50 Methemoglobin 0.1 % (0.4-1.5) L 09/01/23 08:50 Total Hemoglobin 12.7 g/dL (14-18) L 09/01/23 08:50 Sodium 132.0 mmol/L (131-143) 09/01/23 08:50 Potassium 3.9 mmol/L (3.5-5.0) 09/01/23 08:50 Glucose 109.0 mg/dL (70-115) 09/01/23 08:50 Ionized Calcium 1.2 mmol/L (1.1-1.4) 09/01/23 08:50 O2 Delivery Device Room air 09/01/23 08:50 FiO2 21.0 % 09/01/23 08:50 Tailor Helper ID glc 09/01/23 08:50 Sodium 131 mmol/L (136-145) L 09/01/23 07:45 Potassium 4.5 mmol/L (3.5-5.1) 09/01/23 07:45 Chloride 94 mmol/L (98-107) L 09/01/23 07:45 Carbon Dioxide 22 mmol/L (22-29) 09/01/23 07:45 Anion Gap 19.5 (5-19) H 09/01/23 07:45 BUN 24 mg/dL (8-23) H 09/01/23 07:45 Creatinine 1.1 mg/dL (0.7-1.2) 09/01/23 07:45 GFR Calculation Not Reportable 09/01/23 07:45 Glucose 107 mg/dL (65-115) 09/01/23 07:45 Calculated Osmolality 277 mOsm/kg (285-295) L 09/01/23 07:45 Lactic Acid 4.7 mmol/L (0.5-2.2) H* 09/01/23 07:45 Lactic Acid (Sepsis) 1.4 mmol/L (0.5-2.2) 09/01/23 10:13 Calcium 8.8 mg/dL (8.5-10.5) 09/01/23 07:45 Magnesium 2.1 mg/dL (1.7-2.3) 09/01/23 07:45 Total Bilirubin 1.4 mg/dL (0.15-1.2) H 09/01/23 07:45 AST 30 U/L (0-40) 09/01/23 07:45 ALT 39 U/L (0-41) 09/01/23 07:45 Alkaline Phosphatase 202 U/L (40-130) H 09/01/23 07:45 Troponin T Baseline 46 ng/L (0-15) H 09/01/23 07:45 Troponin T 120 Minute 50.18 ng/L (0-15) H 09/01/23 10:13 Delta Troponin T 4.18 ABS# (0-10) 09/01/23 10:13 Total Protein 6.0 g/dL (6.6-8.7) L 09/01/23 07:45 Albumin 3.4 g/dL (3.5-5.2) L 09/01/23 07:45 Globulin 2.6 g/dL (1.3-4.6) 09/01/23 07:45 Lipase 21 U/L (13-60) 09/01/23 07:45 Urine Color Yellow (Yellow) 09/01/23 09:36 Urine Appearance Clear (CLEAR) 09/01/23 09:36 Urine pH 8 (5-7) H 09/01/23 09:36 Ur Specific [place] 1.015 (1.005-1.030) 09/01/23 09:36 Urine Protein Neg (Negative) 09/01/23 09:36 Urine Glucose (UA) Norm (Normal) 09/01/23 09:36 Urine Ketones Negative (Negative) 09/01/23 09:36 Urine Blood Neg (Negative) 09/01/23 09:36 Urine Nitrate Negative (Negative) 09/01/23 09:36 Urine Bilirubin Neg (Negative) 09/01/23 09:36 Urine Urobilinogen Norm mg/dL (Negative) 09/01/23 09:36 Ur Leukocyte Esterase Negative (Negative) 09/01/23 09:36 All radiology interpretation(s) finalized by discharge Discharge Plan Discharge Patient Disposition: Admitted As Inpatient Admit Provider: Shamar Lerner Clinical Impression: Sepsis, Afib, Acute encephalopathy Condition: Stable Coding Level of Care Code ED 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
[2023-09-01 09:05] LABS: ABG PCO2 27.9 mmHg (35-45); ABG PH Result 7.55 (7.35-7.45); Alveolar-Arterial Oxygen Gradi 5.8 mmHg (5-10); Arterial Blood Gas Hematocrit 38.9 % (42-52); Base Excess ABG 2.5 mmol/L (-2.0-2.0); Blood Gas Allen Test Pos; Blood Gas Operator Identificat glc; Blood Gas Sample Site Radial, right; Blood Gas Sample Type Arterial; Carboxyhemoglobin 1.3 %THgb (0.4-20.1); HCO3 ABG 24.1 mmol/L (22-26); HGB O2 Sat 94.5 % (95-100); Ionized Calcium Level - ABG 1.2 mmol/L (1.1-1.4); Methemoglobin 0.1 % (0.4-1.5); Oxygen Device ROOM AIR; Oxygen Saturation ABG 95.9; PO2 ABG 70.2 mmHg (80.0-100.0); PO2 FiO2 Ratio Arterial Blood 0; Potassium Level - ABG 3.9 mmol/L (3.5-5.0); Total Hemoglobin 12.7 g/dL (14-18)
[2023-09-01 09:36] LABS: Lipase 21 U/L (13-60); Magnesium 2.1 mg/dL (1.7-2.3)
[2023-09-01 09:40] LABS: Add Urine Microscopic? NO; Charge for UA Resulting for Rev
--- NOTE | 2023-09-01 09:46 | PC.PHAR ---
MEDICATIONS ENTERED ARE WHAT THE PTS STATES THE PT TAKES -[facility] METOPROLOL TART 25MG BID DCED PTS STATES THE PT IS NOT TAKING ANYMORE-PTS STATES THE PT TAKES PRILOSEC 20MG QAM,TRAZODONE 50MG HS AND SINGULAIR 10MG QPM NONE WERE ON THE PTS [facility] MED LIST
[2023-09-01 09:55] LABS: Lactic Sepsis W/Reflex 4.7 mmol/L (0.5-2.2)
--- NOTE | 2023-09-01 09:56 | ECG_ITS ---
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 Measurements Intervals [place] Rate: 62 P: 0 NH: 0 QRS: -74 QRSD: 193 T: 84 QT: 462 QTc: 470 Interpretive Statements ELECTRONIC VENTRICULAR PACEMAKER ABNORMAL RHYTHM ECG Compared to ECG 09/01/2023 08:03:08 No significant changes Electronically Signed On 09-01-2023 18:50:25 CDT by Tanna Guerin M.D. [id number]
[2023-09-01 10:05] LABS: Bilirubin Urine Neg (Negative); Blood Urine Neg (Negative); Glucose Urine UA Norm (Normal); Ketones Urine Negative (Negative); Leukocyte Esterase Urine Negative (Negative); Nitrate Urine Negative (Negative); Protein Urine Neg (Negative); Specific Gravity, Urine 1.015 (1.005-1.030); Urine Appearance Clear (CLEAR); Urine Color Yellow (Yellow); Urobilinogen Urine Norm (Negative); pH Urine 8 (5-7)
--- NOTE | 2023-09-01 10:14 | US_ITS ---
WS: [id number] RIGHT UPPER QUADRANT ULTRASOUND HISTORY: elevated t bili/alk phos COMPARISON: CT abdomen 09/01/2023 Liver: 16.4 cm in length. Normal size liver and echogenicity. No bile duct dilatation or mass. Portal Vein: Normal hepatopetal flow with monophasic waveform. Gallbladder: Normally distended gallbladder with no stones or wall thickening. CBD: 0.3 cm Pancreas: Poorly visualized. Obscured by bowel gas. Right kidney: 12.0 cm in length. Normal size kidney. Cortical thinning and scarring as seen on the pr ior CT. No hydronephrosis or obstruction. Cortical cyst 1.5 cm. Aorta and IVC: Unremarkable abdominal aorta and IVC. No ascites. IMPRESSION: 1. Normal gallbladder. 2. No bile duct dilatation. 3. No RIGHT renal obstruction.
--- NOTE | 2023-09-01 10:15 | CT_ITS ---
WS: [id number] CT ABDOMEN AND PELVIS NONCONTRAST HISTORY: Abdominal pain TECHNIQUE: Imaging performed through the abdomen and pelvis. Coronal and sagittal reformats are submi tted. All CT scans at [facility] use at least one of these dose optimization techniques: auto mated exposure control; mA and/or kV adjustment per patient size (includes targeted exams where dose is matched to clinical indication); or iterative reconstruction. DLP: 797.10 mGy.cm COMPARISON: 06/22/2023 Significant motion artifact. Lower thorax: Dependent changes at the lung bases and very small pleural effusions. Heart is enlarged . Aortic valve replacement. Liver: Limited by motion artifact. Gallbladder: Present. Limited otherwise. Pancreas: Atrophic and fatty replaced. Spleen: Normal size with adjacent splenule. Adrenal glands: Normal. No mass. Right kidney: Mild perinephric stranding. No obstruction. Reidentified are small cortical masses whic h are unchanged. Nonobstructing calcification in the central renal pelvis. RIGHT ureter is not dilate d. Left kidney: Mild perinephric stranding. Focal areas of cortical thinning and scarring. Small extrare nal pelvis. No obstruction. Aorta: Mild atherosclerosis abdominal aorta with no aneurysm. No free fluid, intraperitoneal air or significant lymphadenopathy. GI tract: Nondistended stomach. No small bowel obstruction. Marked diffuse constipation. No wall thic kening or colitis. Abdominal wall: Negative. No hernia. Pelvis: Urinary bladder is normally distended. Prostate gland is enlarged. Bilateral inguinal canals contain fat. Osseous structures: Unremarkable. IMPRESSION: 1. Study is compromised by motion artifact. 2. Very small bilateral pleural effusions. 3. Cardiomegaly and aortic valve replacement. 4. No renal obstruction. 5. Bilateral perinephric stranding with mild cortical thinning and scarring. 6. Diffuse marked constipation. No obstructing lesion is identified by CT. 7. No evidence for acute diverticulitis. 8. Prostate enlargement.
[2023-09-01 10:40] LABS: Troponin 5 2HR 50.18 ng/L (0-15); Troponin 5 2HR Delta 4.18 ABS# (0-10)
[2023-09-01] MEDS: meropenem 1,000 MG in sodium chloride 0.9% (plus) 50 ML 100 MG IV (10:40)
[2023-09-01 10:54] LABS: Reflex Lactate Order REFLEX LACTIC ORDERD
[2023-09-01 11:26] LABS: Lactic Acid level (Lactate) 1.4 mmol/L (0.5-2.2)
[2023-09-01 11:29] LABS: INR 1.83 (0.8-1.2)
[2023-09-01] MEDS: vancomycin 1,000 MG in sodium chloride 0.9% 250 ML 250 MG IV (11:32)
--- NOTE | 2023-09-01 13:15 | USCV_ITS ---
Eddy Miner Age: 87 Gender: M : 06/13/1936 Exam Date: 09/01/2023 13:25 Ordering Phys: Shamar Lerner MD Technologist: TRISTIN [place] [facility] [place]: recent ao pros taver BP: 153 / 76 HR: 105 Rhythm: Sinus Technical Quality: Adequate MEASUREMENTS (Male / Female) Normal Values 2D ECHO LV Diastolic Diameter PLAX 4.3 cm 4.2 - 5.9 / 3.9 - 5.3 cm IVS Diastolic Thickness 1.5 cm 0.6 - 1.0 / 0.6 - 0.9 cm IVS Systolic Thickness 1.8 cm LVPW Diastolic Thickness 1.3 cm 0.6 - 1.0 / 0.6 - 0.9 cm LVPW Systolic Thickness 1.5 cm LVOT Diameter 2.7 cm LV Ejection Fraction 2D Teich 70.5 % LV Ejection Fraction MOD 2C 66.6 % LV Ejection Fraction 2C AL 67.3 % LA Diameter 4.4 cm RA Systolic Volume 4C AL 59.9 ml RA Systolic Volume 4C MOD 59.0 ml M-MODE LA Ao Ratio MM 1.5 AV Cusp Separation MM 2.9 cm DOPPLER AV Peak Velocity 192.0 cm/s LVOT Peak Velocity 114.0 cm/s AV Area Cont Eq vti 3.6 cm squared AV Area Cont Eq pk 3.4 cm squared MV Peak Velocity 166.0 cm/s MV Area PHT 5.5 cm squared Mitral E to A Ratio 3.9 TV Peak Velocity 265.5 cm/s TR Peak Velocity 324.0 cm/s TR Peak Gradient 42.0 mmHg TV Peak E Velocity 75.0 cm/s PV Peak Velocity 117.0 cm/s FINDINGS Left Ventricle Normal left ventricular size, systolic function and wall thickness, with no regional wall motion abnormalities. Grade II/IV diastolic dysfunction, moderately elevated filling pressures. Left ventricular ejection fraction is estimated at 65 %. Right Ventricle Normal right ventricular size and systolic function. Right Atrium The right atrium is normal in size. Left Atrium The left atrium is normal in size. Mitral Valve Structurally normal mitral valve. Moderate mitral valve regurgitation. Aortic Valve Aortic valve is thickened. There may have been a transaortic valve replacement done. Trace to mild aortic insufficiency. Tricuspid Valve Structurally normal tricuspid valve. Mild tricuspid valve regurgitation. Pulmonic Valve Pulmonic valve not well visualized. Pericardium Normal pericardium without effusion. Aorta Normal ascending aorta dimension. IVC The inferior vena cava appears normal. CONCLUSIONS Normal left ventricular size, systolic function and wall thickness, with no regional wall motion abnormalities. Grade II/IV diastolic dysfunction, moderately elevated filling pressures. Left ventricular ejection fraction is estimated at 65 %. Structurally normal mitral valve. Moderate mitral valve regurgitation. Aortic valve is thickened. There may have been a transaortic valve replacement done. Trace to mild aortic insufficiency. Previous echo was done 2 months ago. There was severe aortic stenosis. It appears a transaortic valve has been placed since then. Otherwise, no change. Dr. Jefferson Grover MD (Electronically Signed) Final Date: 01 September 2023 16:18 S
--- NOTE | 2023-09-01 13:22 | P.HP_ITS ---
Providers/Chief Complaint 2 Admitting Physician: Shamar Lerenr Primary Care Provider: Shayla Mesa MD Chief Complaint: weaknesss, fall History of Present Illness Pleasant 87-year-old gentleman with history of atrial fibrillation, PPM, previously on warfarin, currently on Eliquis, earlier in June had a laparoscopic appendectomy with appendix necrosis although apparently without spillage, at the same time he was found to have aortic stenosis and underwent TAVR. He came to ER on 08/30 was found to be hypertensive, had some dizziness, headache, some defects in left lower visual field with agatha, flashing lights, was referred to ophthalmology. He returns today to ER due to lethargy/altered mental status, running fever 101 at home. In ER leukocytosis 18.26. He is now more alert, denies headache, denies pain or discomfort. Has mild tenderness in right lower quadrant. CT abdomen pelvis obtained, study compromised by motion. Noted diffuse constipation. Cardiomegaly and aortic replacement. Bilateral perinephric stranding with mild cortical thinning and scarring. Urinalysis unremarkable. Prostate enlargement. Very small pleural effusions. In ER he is febrile one 1.7, WBC 18.26, ABG 7.55/27.9/70.2, lactic acid 4.7, T. bili 1.4, alk phos 202. Gallbladder ultrasound obtained with normal gallbladder, no bile duct dilation, no right renal obstruction. Head CT without intracranial hemorrhage, moderate atrophy and volume loss and small vessel disease. Chest x- ray with hyperinflation, interstitial disease. Review of Systems 2 Const: Reports: fever(s), fatigue (gen weakness), daytime sleepiness and other; Denies: chills, body aches or malaise ENMT: Denies: throat pain, oral sores or ear or mastoid pain Card: Denies: chest pain, edema, pre-syncope or dyspnea on exertion Resp: Denies: dyspnea, productive cough, change in phlegm color or hemoptysis GI: Denies: abdominal pain, nausea, vomiting, diarrhea, constipation, hematochezia or melena : Denies: flank pain, difficulty urinating, urinary frequency or hematuria Musc: Denies: back pain, joint swelling or joint redness Skin/Breast: Denies: rash or new lesions Neuro: Reports: headache(s); Denies: numbness in extremities, weakness in extremities, dizziness, confusion or seizure-like activity Medications/Allergies Home Medications Medication Instructions Recorded Confirmed Last Taken Type dutasteride 0.5 mg capsule 0.5 mg PO QPM 07/10/20 09/01/23 08/18/23 History glucosamine-chondroitin 250 mg-200 1 tab PO BID 01/24/22 09/01/23 06/22/23 07:00 History mg tablet (Osteo Bi-Flex) multivitamin 1 tab PO QAM 01/24/22 09/01/23 08/19/23 History saw palmetto 160 mg capsule 160 mg PO TID 01/24/22 09/01/23 06/22/23 07:00 History turmeric 400 mg capsule 400 mg PO BID 01/24/22 09/01/23 06/22/23 07:00 History vitamin A 2,400 mcg capsule 2,400 mcg PO DAILY 01/24/22 09/01/23 06/21/23 17:00 History vitamin B complex 1 cap PO QAM 01/24/22 09/01/23 06/22/23 07:00 History aspirin 81 mg tablet,delayed 81 mg PO QAM 02/25/22 09/01/23 08/19/23 History release (Adult Low Dose Aspirin) fluticasone propionate 50 2 spray intranasal DAILY PRN 09/01/22 09/01/23 06/22/23 07:00 History mcg/actuation nasal allergies spray,suspension loratadine 10 mg tablet 10 mg PO DAILY PRN allergies 09/01/22 09/01/23 06/22/23 07:00 History Custom Molded Copolymer Orthotics #1 ea 12/28/22 09/01/23 Unknown Rx and Orthopedic Shoes albuterol sulfate 90 mcg/actuation 2 puff inhalation BID PRN 03/02/23 09/01/23 06/22/23 07:00 History aerosol inhaler (ProAir HFA) Shortness Of Breath clobetasol 0.05 % topical cream See Rx Instructions .Route .COMPLEX 06/23/23 09/01/23 Unknown History cyclobenzaprine 10 mg tablet 10 mg PO TID PRN Muscle Spasm 06/23/23 09/01/23 09/01/23 03:30 History diltiazem HCl 120 mg 120 mg PO QAM 02/09/01/23 06/22/23 07:00 History capsule,extended release 24 hr ferrous sulfate 325 mg (65 mg 325 mg PO DAILY@06/23/23 09/01/23 08/19/23 History iron) tablet (Iron (ferrous sulfate)) mometasone 200 mcg/actuation HFA 1 puff inhalation BID 06/23/23 09/01/23 08/31/23 History aerosol inhaler olodaterol 2.5 mcg/actuation mist 2 inh inhalation QAM 06/23/23 09/01/23 09/01/23 History for inhalation apixaban 5 mg tablet (Eliquis) 5 mg PO BID 08/19/23 09/01/23 08/19/23 History potassium gluconate 595 mg (99 mg) 595 mg PO QPM 08/19/23 09/01/23 Unknown History tablet Super R-Lipoic Acid 1 cap PO QAM 09/01/23 09/01/23 Unknown History acetylcarnitine HCl 250 mg capsule 250 mg PO DAILY 09/01/23 09/01/23 Unknown History ascorbic acid (vitamin C) 500 mg 500 mg PO DAILY@09/01/23 09/01/23 Unknown History tablet (Vitamin C) ashwashiradha root extract 500 mg 500 mg PO DAILY 09/01/23 09/01/23 Unknown History capsule calcium carb 333 mg-vit D3 133 1 tab PO BID 09/01/23 09/01/23 Unknown History unit-mag ox 133 mg-zinc oxide 5 mg tab (Romie Mag Zinc Plus D3) cholecalciferol (vitamin D3) 125 125 mcg PO QAM 09/01/23 09/01/23 Unknown History mcg (5,000 unit) tablet (Vitamin D3) coenzyme Q10 100 mg capsule 100 mg PO QAM 09/01/23 09/01/23 Unknown History (CoQ-10) cyanocobalamin (vitamin B-12) 1,000 mcg PO DAILY@09/01/23 09/01/23 Unknown History 1,000 mcg tablet (Vitamin B-12) gabapentin 300 mg capsule 300 mg PO TID 09/01/23 09/01/23 Unknown History montelukast 10 mg tablet 10 mg PO QPM 09/01/23 09/01/23 Unknown History omeprazole magnesium 20 mg 20 mg PO QAM 09/01/23 09/01/23 Unknown History tablet,delayed release (Prilosec OTC) prednisone 20 mg tablet 40 mg PO DAILY 09/01/23 09/01/23 08/31/23 History FINISHED 08/31/23 trazodone 50 mg tablet 50 mg PO BEDTIME 09/01/23 09/01/23 Unknown History Allergies Allergy/AdvReac Type Severity Reaction Status Date / Time Sulfa (Sulfonamide Allergy Unknown unknown Verified 08/23/23 10:20 Antibiotics) amlodipine Allergy Unknown Verified 08/31/23 16:10 amoxicillin Allergy ALGY-Rash Verified 08/23/23 10:20 Iodinated Contrast Media Allergy Unknown Verified 08/23/23 10:20 PFSH Acute 2 PFSH: Medical History History of nonmelanoma skin cancer Pain in right lower leg Lower extremity edema Pacemaker Hypertension Surgical History Status post laparoscopic appendectomy S/P cardiac pacemaker procedure S/P knee surgery S/P vasectomy Family History Mother Myocardial infarction Social History Smoking and tobacco/nicotine status: former use of tobacco/nicotine Alcohol intake: never Substance/Drug Use: never Vitals/I&O/Wt Last Vital Signs Temp 101.7 F H 09/01/23 11:28 Pulse 71 09/01/23 11:28 Resp 18 09/01/23 07:38 BP 183/73 09/01/23 11:28 Pulse Ox 96 09/01/23 11:28 O2 Del Method Room Air 09/01/23 11:28 Weight last 48 hrs Weight 83.915 kg Physical Exam 2 Narrative: Accompanied by his Const: COMMON NORMALS: patient oriented x3; negative for alert GENERAL APPEARANCE: cooperative O RIENTATION/CONSCIOUSNESS: Yes lethargic (Wakes up to) HENMT: COMMON NORMALS: oropharynx normal Neck/C-Spine: COMMON NORMALS: no JVD Resp: COMMON NORMALS: normal respiratory effort and clear to auscultation bilaterally AUSCULTATION: clear to auscultation bilaterally Cardio: COMMON NORMALS: no JVD, regular rhythm, S1 normal heart sound present, S2 normal heart sound present and No murmurs present (Cardio) RHYTHM: regular rhythm HEART SOUNDS: S1 normal heart sound present and S2 normal heart sound present GI: COMMON NORMALS: Normal to inspection, nondistended, normoactive bowel sounds present, Soft to palpation and non-tender PALPATION: Yes Soft to palpation Extremity: COMMON NORMALS: no joint enlargement and no pedal edema Neuro: COMMON NORMALS: patient oriented x3 and moves all extremities S ENSORIUM/ORIENTATION: Yes alert OTHER: No rigidity Skin: COMMON NORMALS: no rashes or lesions noted GENERAL SKIN EXAM: no rashes or lesions noted Data 09/01/23 07:45 09/01/23 07:45 Micro: Microbiology 09/01/23 10:13 Blood Culture - Preliminary Blood SPECIMEN COLLECTED 09/01/23 10:14 Blood Culture - Preliminary Blood SPECIMEN COLLECTED A&P Assessment and plan (1) Sepsis: Severe sepsis with leukocytosis 18.6, fever one 1.7. Lactic acidosis 4.7. Source unclear. Lethargic, history obtained from his . No headache or neck stiffness. Did have a headache yesterday. Some tenderness right lower quadrant, noncontrast CT abdomen pelvis unremarkable. He does have an iodine allergy. No rigidity, minimal tenderness on deep palpation of right lower quadrant. Blood cultures collected. Reviewed vitals, CBC, INR, ABG, CMP, UA, chest x-ray, head CT, gallbladder ultrasound, CT abdomen pelvis, ER note, discussed with ER provider. He is on anticoagulation with Eliquis. ER physician not comfortable performing lumbar puncture at current time. Consider LP after further withholding Eliquis. Continue empiric antibiotic coverage with meropenem, vancomycin. Monitor for risk of seizure with meropenem, Giurgius COVID-19 treated with vancomycin. Follow-up blood cultures. Check respiratory viral panel. (2) Acute encephalopathy: Acute metabolic encephalopathy possibly secondary to sepsis, infection unclear source, possibility of pharyngitis, his states he has also been started on cyclobenzaprine, possibly medication toxicity, hold cyclobenzaprine for now. Check respiratory viral panel. Empiric antibiotics as above Unable to perform MRI due to pacemaker. Has a IV contrast allergy. CT of the head unremarkable but with moderate atrophy and volume loss and small vessel disease. Plan Atrial fibrillation Status post TAVR Status post laparoscopic appendectomy in June Attestations 2 Medical Necessity Statement*: Admission of over 2 midnights anticipated for assessment management of severe sepsis of unclear source, acute encephalopathy. Diagnoses Sepsis A41.9 Acute encephalopathy G93.40
--- NOTE | 2023-09-01 13:40 | ECG_ITS ---
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 Measurements Intervals [place] Rate: 64 P: 0 DE: 0 QRS: -79 QRSD: 196 T: 76 QT: 470 QTc: 486 Interpretive Statements ELECTRONIC VENTRICULAR PACEMAKER ABNORMAL RHYTHM ECG Compared to ECG 09/01/2023 09:56:44 No significant changes Electronically Signed On 09-01-2023 18:54:58 CDT by Tanna Guerin M.D. [email or web address]
[2023-09-01] MEDS: lactated ringers 1,000 ML 75 ML IV (13:56)
[2023-09-01] MEDS: sodium chloride 0.9% 1,000 ML 100 ML IV (13:56)
[2023-09-01] MEDS: heparin 5,000 unit/mL INJ 1 mL 5000 UNIT SUBCUT (14:03)
[2023-09-01 14:18] LABS: Troponin 5 6HR 54.36 ng/L (0-15); Troponin 5 6HR Delta 8.36 ng/L (0-12)
[2023-09-01] MEDS: gabapentin 300 mg Capsule PO ×2 (15:00→20:07)
[2023-09-01 18:04] LABS: Adenovirus Not Detected (NOT DETECT); Chlamydia Pneumoniae Not Detected (NOT DETECT); Coronavirus 229E,HKU1,NL63,OC4 Not Detected (NOT DETECT); Human Metapneumovirus Not Detected (NOT DETECT); Human Rhinovirus/Enterovirus Not Detected (NOT DETECT); Influenza A Not Detected (NOT DETECT); Influenza A H1 Not Detected (NOT DETECT); Influenza A H1-2009 Not Detected (NOT DETECT); Influenza A H3 Not Detected (NOT DETECT); Influenza B Not Detected (NOT DETECT); Mycoplasma Pneumoniae Not Detected (NOT DETECT); Parainfluenza Virus Type 1 Not Detected (NOT DETECT); Parainfluenza Virus Type 2 Not Detected (NOT DETECT); Parainfluenza Virus Type 3 Not Detected (NOT DETECT); Parainfluenza Virus Type 4 Not Detected (NOT DETECT); Respiratory Syncytial Virus A Not Detected (NOT DETECT); Respiratory Syncytial Virus B Not Detected (NOT DETECT); SARS-COV-2 Not Detected (NOT DETECT)
--- NOTE | 2023-09-01 19:33 | PC.NURSE ---
Patient arrived to ICU room 2 at approximately 1840. Patient is AOX4, Patient does have redness on sacral area that is bleachable. Patient has bruising on abdomen and left hip. Bilateral AC IV present from ER, fluids running from ER into right AC. Patient has no requests or complaints at this time.
[2023-09-01] MEDS: meropenem 2,000 MG in sodium chloride 0.9% (100 ml) 100 ML 200 MG IV (19:56)
[2023-09-01] MEDS: trazodone 50 mg Tablet PO (20:07)
[2023-09-01] MEDS: hyDRALAzine 20 mg/mL INJ 1 mL 5 MG IVP (21:30)
--- NOTE | 2023-09-01 22:13 | PC.NURSE ---
Patient had a blood pressure of 174/81. Dr. Maciel notified and ordered 5mg Hydralizine IVP ONCE.
--- NOTE | 2023-09-01 22:23 | PC.NURSE ---
17 beat run V.Tach: Dr. Maciel notified of V.Tach run, current vitals, no active chest pain @2220. Image of strip sent via volt. Strip placed in paper chart.
[2023-09-02] VITALS (106 sets, daily range): BP systolic 122–176; BP diastolic 58–114; PULSE 59–79; RESP 13–34; TEMP 37.1–38.2; O2SAT 89–98
[2023-09-02 00:52] LABS: Bacillus cereus group Not Detected (NOT DETECT); Bacillus subtillis group Not Detected (NOT DETECT); Corynebacterium Not Detected (NOT DETECT); Cutibacterium acnes (P.acnes) Not Detected (NOT DETECT); Enterococcus Detected (NOT DETECT); Enterococcus faecalis Detected (NOT DETECT); Enterococcus faecium Not Detected (NOT DETECT); Lactobacillus species Not Detected (NOT DETECT); Listeria Not Detected (NOT DETECT); Listeria monocytogenes Not Detected (NOT DETECT); Micrococcus Not Detected (NOT DETECT); Pan Candida Not Detected (NOT DETECT); Pan Gram-Negative Not Detected (NOT DETECT); Staphylococcus epidermidis Not Detected (NOT DETECT); Staphylococcus lugdunensis Not Detected (NOT DETECT); Staphylococcus species Not Detected (NOT DETECT); Streptococcus agalactiae Not Detected (NOT DETECT); Streptococcus anginosus group Not Detected (NOT DETECT); Streptococcus pneumoniae Not Detected (NOT DETECT); Streptococcus pyogenes Not Detected (NOT DETECT); Streptococcus species Not Detected (NOT DETECT); vanA Not Detected ` (NOT DETECT); vanC Not Detected (NOT DETECT)
[2023-09-02] MEDS: heparin 5,000 unit/mL INJ 1 mL 5000 UNIT SUBCUT ×2 (00:56→14:29)
[2023-09-02] MEDS: lactated ringers 1,000 ML 75 ML IV ×2 (02:14→16:12)
[2023-09-02] MEDS: meropenem 2,000 MG in sodium chloride 0.9% (100 ml) 100 ML 200 MG IV ×3 (02:14→18:57)
[2023-09-02 04:10] LABS: Basophils % 0.1 %; Hematocrit 35.9 % (37-53); Lymphocytes # 5.1 10^3/uL (0.8-4.8); Mean Corpuscular HGB Conc 32.9 g/dL (30-55); Mean Corpuscular Hemoglobin 33.6 pg (27-33); Mean Corpuscular Volume 102.3 fl (82-101); Mean Platelet Volume 9.4 fL (7.4-10.4); Monocytes # 0.9 10^3/uL (0.2-0.9); Monocytes % 5.1 %; Neutrophils # 11.43 10^3/uL (1.8-7.7); Neutrophils % 65.1 %; Nucleated Red Blood Cells % 0 %; Platelet Count 211 10^3/cmm (157-399); Red Blood Count 3.51 10^6/uL (3.85-5.65); White Blood Count 17.55 10^3/uL (3.29-11.43)
[2023-09-02 04:41] LABS: Alanine Aminotransferase 35 U/L (0-41); Albumin Level 3.2 g/dL (3.5-5.2); Alkaline Phosphatase 182 U/L (40-130); Anion Gap 14.8 (5-19); Aspartate Amino Transferase 47 U/L (0-40); Blood Urea Nitrogen 17 mg/dL (8-23); Calcium 8.6 mg/dL (8.5-10.5); Carbon Dioxide 25 mmol/L (22-29); Chloride 97 mmol/L (98-107); Creatinine Clr Calc Pharmacy 75.4289; Globulin 2.7 g/dL (1.3-4.6); Glucose 127 mg/dL (65-115); Osmolality Calculated 279 mOsm/kg (285-295); Potassium 3.8 mmol/L (3.5-5.1); Sodium 133 mmol/L (136-145); Total Bilirubin 3.1 mg/dL (0.15-1.2); Total Protein 5.9 g/dL (6.6-8.7)
[2023-09-02] MEDS: aspirin 81 mg EC Tablet PO (05:36)
[2023-09-02] MEDS: pantoprazole DR 40 mg Tablet PO (05:36)
--- NOTE | 2023-09-02 05:46 | PC.NURSE ---
Urinary Catheter: Present on arrival to ICU. Unknown insertion time.
[2023-09-02] MEDS: gabapentin 300 mg Capsule PO ×3 (09:06→21:22)
[2023-09-02] MEDS: vancomycin 1,500 MG/300 ML PIGGYBACK 200 MG IV (11:53)
--- NOTE | 2023-09-02 17:42 | P.PN_ITS ---
Subjective 2 Subjective: His reports she is making him but still with daytime sleepiness between brief episodes of alertness. Subjectively he states that he feels somewhat better. At rest he is not in pain or discomfort. Denies any additional symptoms. On evaluation he does have some posterior neck pain with tilting his head forward. Tenderness with palpation in right lower quadrant. Vitals/I&O/Wt Last Vital Signs Temp 100.1 F H 09/02/23 13:00 Pulse 62 09/02/23 16:00 Resp 24 H 09/02/23 16:00 BP 128/69 09/02/23 16:00 Pulse Ox 96 09/02/23 16:00 O2 Del Method Room Air 09/02/23 16:00 09/02/23 09/02/23 09/02/23 06:59 14:59 22:59 Intake Total 1087.5 / 2442.5 800 / 800 1000 / 1800 Output Total 750 / 1800 Balance 337.5 / 642.5 800 / 800 1000 / 1800 Weight last 48 hrs Weight 90.991 kg Weight 91.989 kg Weight 83.915 kg Physical Exam 2 Narrative: Accompanied by his Const: COMMON NORMALS: patient oriented x3 and alert GENERAL APPEARANCE: c ooperative and lethargic (Wakes up to) ORIENTATION/CONSCIOUSNESS: Yes lethargic (Wakes up to) HENMT: COMMON NORMALS: oropharynx normal Neck/C-Spine: COMMON NORMALS: no JVD Resp: COMMON NORMALS: normal respiratory effort and clear to auscultation bilaterally AUSCULTATION: clear to auscultation bilaterally Cardio: COMMON NORMALS: no JVD, regular rhythm, S1 normal heart sound present, S2 normal heart sound present and No murmurs present (Cardio) RHYTHM: regular rhythm HEART SOUNDS: S1 normal heart sound present and S2 normal heart sound present GI: COMMON NORMALS: Normal to inspection, nondistended, normoactive bowel sounds present and Soft to palpation PALPATION: Yes Soft to palpation and Yes Tenderness to palpation present (GI) Details: RLQ Extremity: COMMON NORMALS: no joint enlargement and no pedal edema Neuro: COMMON NORMALS: patient oriented x3 and moves all extremities S ENSORIUM/ORIENTATION: Yes alert and Yes lethargic (Wakes up to) OTHER: No rigidity, but pain with tilting his head forward. Skin: COMMON NORMALS: no rashes or lesions noted GENERAL SKIN EXAM: no rashes or lesions noted Urinary Catheter Management: Vickers: Cath Placed During This Visit: yes Reason for Continuing Indwelling Catheter: Accurate Measurement of Urinary Output in Critically Ill Patients Urinary Catheter Date of Insertion: 09/02/23 Urinary Catheter Time of Insertion: 19:00 Data 09/02/23 03:25 09/02/23 03:25 Micro: Microbiology 09/01/23 10:13 Blood Culture - Preliminary Blood NEGATIVE TO DATE 09/01/23 10:14 Blood Culture - Preliminary Blood Enterococcus faecalis A&P Assessment and plan (1) Sepsis: Reviewed vitals, CBC, CMP, blood culture. Echocardiogram. Mildly improved leukocytosis. /low grade fever recurrs. Blood culture on review positive for enterococcus. Continue meropenem, vanco. Discussed with case worker. With neck pain on flexion, AMS, will request LP. RLQ tenderness, with unramarable CT imaging of this area, but unenhanced study. After LP premedicate for contrast CT. Thickning of aortic valve on echo repored suggestive of TAVR, no obvious vegetation, but with bacteremia, foreign body, will discuss and consider GABRIELA. Maintaining Hemodynamics. Discussed with them transfer out of ICU. He is on anticoagulation with Eliquis. ER physician not comfortable performing lumbar puncture at current time. Consider LP after further withholding Eliquis. Continue empiric antibiotic coverage with meropenem, vancomycin. Monitor for risk of seizure with meropenem, Giurgius COVID-19 treated with vancomycin. Follow-up blood cultures. Check respiratory viral panel. (2) Acute encephalopathy: Per discussion with his persistent acute metabolic encephalopathy possibly secondary to sepsis, infection unclear source, possibility of pharyngitis, his states he has also been started on cyclobenzaprine, possibly medication toxicity, hold cyclobenzaprine for now. Continue empiric antibiotic coverage. Noted positive blood culture as above. Check respiratory viral panel. Empiric antibiotics as above Unable to perform MRI due to pacemaker. Has a IV contrast allergy. CT of the head unremarkable but with moderate atrophy and volume loss and small vessel disease. Plan Atrial fibrillation Status post TAVR Status post laparoscopic appendectomy in June Attestations 2 Medical Necessity Statement*: Continue admission for assessment management of sepsis, enterococcal bacteremia, acute encephalopathy. Diagnoses Sepsis A41.9 Acute encephalopathy G93.40
--- NOTE | 2023-09-02 19:51 | PC.NURSE ---
Shift summary: Mr Miner has rested in the bed most of the shift. He did get out of bed one time for BSC use. He was weak, gait belt and 2 assist. Going back to be a walker also provided, he transferred better this time. He remains in a paced rhythm. He did have one temp. over 100 early afternoon. Other Vital signs WNL. He has spent most of the shift resting with eyes closed. He has picked at his clear liquid meals, he stated he does not eat sugar. Urine output of 775ml. One large Bm noted this am.
[2023-09-02] MEDS: acetaminophen 325 mg Tablet 650 MG PO (21:22)
[2023-09-02] MEDS: trazodone 50 mg Tablet PO (21:22)
[2023-09-03] VITALS (10 sets, daily range): BP systolic 127–163; BP diastolic 58–79; PULSE 59–75; RESP 14–21; TEMP 36.6–37.3; O2SAT 91–96
--- NOTE | 2023-09-03 00:13 | FL_ITS ---
WS: [id number] LUMBAR PUNCTURE CLINICAL INFORMATION: sepsis, poss meningitis COMPARISON: None. TECHNIQUE: Informed consent: The procedure and its potential risk and complications were discussed with the luis ent. Verbal and written consent was obtained. Timeout: A timeout was performed to confirm correct patient, procedure, and site. Patient was prepped and draped in the usual sterile fashion. Lidocaine 1% was used for local anesthes ia. Utilizing fluoroscopic guidance, a 3.5 inch 22-gauge spinal needle was advanced into the subarach noid space at L3-L4 via LEFT oblique sublaminar approach. Free flow of clear to slightly cloudy CSF w as obtained. 12 cc of CSF was collected and sent the lab for further analysis. FLUOROSCOPIC TIME: 1min [id number] # of spot films: 1 IMPRESSION: Fluoroscopically guided lumbar puncture. No immediate complications
[2023-09-03] MEDS: heparin 5,000 unit/mL INJ 1 mL 5000 UNIT SUBCUT (00:33)
[2023-09-03] MEDS: meropenem 2,000 MG in sodium chloride 0.9% (100 ml) 100 ML 200 MG IV ×3 (03:32→18:13)
[2023-09-03] MEDS: lactated ringers 1,000 ML 75 ML IV ×2 (05:00→14:46)
[2023-09-03] MEDS: pantoprazole DR 40 mg Tablet PO (05:02)
[2023-09-03] MEDS: aspirin 81 mg EC Tablet PO (05:02)
[2023-09-03 05:36] LABS: Basophils % 0.2 %; Eosinophils # 0.1 10^3/uL (0.0-0.8); Eosinophils % 0.7 %; Hematocrit 32.7 % (37-53); Lymphocytes # 3.9 10^3/uL (0.8-4.8); Lymphocytes % 30.5 %; Mean Corpuscular HGB Conc 33.3 g/dL (30-55); Mean Corpuscular Hemoglobin 33.1 pg (27-33); Mean Corpuscular Volume 99.4 fl (82-101); Mean Platelet Volume 9.5 fL (7.4-10.4); Monocytes # 0.7 10^3/uL (0.2-0.9); Monocytes % 5.7 %; Neutrophils # 8.04 10^3/uL (1.8-7.7); Neutrophils % 62.4 %; Nucleated Red Blood Cells % 0 %; Platelet Count 175 10^3/cmm (157-399); Red Blood Count 3.29 10^6/uL (3.85-5.65); Red Cell Distribution Width 13.7 % (12.1-15.1); White Blood Count 12.87 10^3/uL (3.29-11.43)
[2023-09-03 05:54] LABS: Alanine Aminotransferase 40 U/L (0-41); Albumin Level 2.8 g/dL (3.5-5.2); Alkaline Phosphatase 168 U/L (40-130); Anion Gap 10.6 (5-19); Aspartate Amino Transferase 49 U/L (0-40); Blood Urea Nitrogen 17 mg/dL (8-23); Calcium 8.4 mg/dL (8.5-10.5); Carbon Dioxide 27 mmol/L (22-29); Chloride 98 mmol/L (98-107); Creatinine Clr Calc Pharmacy 67.8937; Globulin 2.6 g/dL (1.3-4.6); Glucose 98 mg/dL (65-115); Osmolality Calculated 276 mOsm/kg (285-295); Potassium 3.6 mmol/L (3.5-5.1); Sodium 132 mmol/L (136-145); Total Bilirubin 2.8 mg/dL (0.15-1.2); Total Protein 5.4 g/dL (6.6-8.7)
[2023-09-03] MEDS: gabapentin 300 mg Capsule PO ×3 (08:50→20:08)
--- NOTE | 2023-09-03 10:05 | PC.SOCIAL ---
IMM Update pg 2 of IMM Updated and reviewed w/ patient. Copy provided and copy dated, initialed and placed in chart.
--- NOTE | 2023-09-03 13:06 | PC.SOCIAL ---
Records faxed to [facility] for [facility] for opthamology f/u.
[2023-09-03 14:31] LABS: CSF Mononuclear # 0.041 10^3/uL (50-90); Mononuclear WBC CSF % 53 % (50-90); Polynuclear Cells ,CSF # 0.037 10^3/uL (0-10); Polynuclear WBC CSF % 47 % (0-10); Red Blood Cell CSF 0 10^3/uL (0-0); White Blood Cell CSF 78 /uL (0-5)
[2023-09-03 14:34] LABS: Cyto Order Verification No Order
[2023-09-03] MEDS: vancomycin 1,500 MG/300 ML PIGGYBACK 200 MG IV (14:46)
[2023-09-03 14:47] LABS: Glucose CSF 35 mg/dL (40-70); Total Protein CSF 69 mg/dL (15-45)
[2023-09-03 14:54] LABS: Appearance CSF HAZY (CLEAR); Color CSF COLORLESS (COLORLESS); Pathology Referral Yes
--- NOTE | 2023-09-03 17:13 | PC.NURSE ---
Pt confused and agitated. 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 Pulling at IVs. This RN calls , Pippa. Pippa states she will come sit with pt until he calms down.
[2023-09-03] MEDS: trazodone 50 mg Tablet PO (20:08)
--- NOTE | 2023-09-03 22:13 | P.PN_ITS ---
Subjective 2 Subjective: Sleeping, wakes up to voice, reports he is doing all right. No headache today. reported he was having some cough, holding onto his chest while coughing. He states he does that to brace himself. Some pain in the back of the neck. Vitals/I&O/Wt Last Vital Signs Temp 99.1 F 09/03/23 20:00 Pulse 61 09/03/23 21:44 Resp 17 09/03/23 20:00 BP 163/79 09/03/23 20:00 Pulse Ox 96 09/03/23 20:00 O2 Del Method Room Air 09/03/23 20:00 09/03/23 09/03/23 09/03/23 06:59 14:59 22:59 Intake Total 437.5 / 2950.0 850 / 850 520 / 1370 Output Total 500 / 1275 900 / 900 Balance -62.5 / 1675.0 850 / 850 -380 / 470 Weight last 48 hrs Weight 94.574 kg Weight 90.991 kg Physical Exam 2 Narrative: Accompanied by his Const: COMMON NORMALS: patient oriented x3 and alert GENERAL APPEARANCE: c ooperative and lethargic (Wakes up to) ORIENTATION/CONSCIOUSNESS: Yes lethargic (Wakes up to) HENMT: COMMON NORMALS: oropharynx normal Neck/C-Spine: COMMON NORMALS: no JVD Resp: COMMON NORMALS: normal respiratory effort and clear to auscultation bilaterally AUSCULTATION: clear to auscultation bilaterally Cardio: COMMON NORMALS: no JVD, regular rhythm, S1 normal heart sound present, S2 normal heart sound present and No murmurs present (Cardio) RHYTHM: regular rhythm HEART SOUNDS: S1 normal heart sound present and S2 normal heart sound present GI: COMMON NORMALS: Normal to inspection, nondistended, normoactive bowel sounds present, Soft to palpation and non-tender PALPATION: Yes Soft to palpation and Yes Tenderness to palpation present (GI) Extremity: COMMON NORMALS: no joint enlargement and no pedal edema Neuro: COMMON NORMALS: patient oriented x3 and moves all extremities S ENSORIUM/ORIENTATION: Yes alert and Yes lethargic (Wakes up to) OTHER: No rigidity, but pain with tilting his head forward. Skin: COMMON NORMALS: no rashes or lesions noted GENERAL SKIN EXAM: no rashes or lesions noted Urinary Catheter Management: Vickers: Cath Placed During This Visit: yes Reason for Continuing Indwelling Catheter: Accurate Measurement of Urinary Output in Critically Ill Patients Urinary Catheter Date of Insertion: 09/02/23 Urinary Catheter Time of Insertion: 19:00 Data 09/03/23 05:27 09/03/23 05:27 Micro: Microbiology 09/03/23 13:50 Gram Stain - Final Cerebrospinal Fluid A&P Assessment and plan (1) Sepsis: Reviewed vitals, CBC, CMP, blood culture. Discussed with patient and his regarding lumbar puncture which are scheduled for today. CSF obtained, reviewed CSF WBC, RBC, polymorphonuclear and ammonia trial counts. Does have 78 WBC, 47% PMNs, 37 cells. Glucose low at 35, protein elevated at 69. Picture consistent with bacterial meningitis, likely enterococcal consistent with bacteremia. Follow-up CSF culture. Continue antibiotic coverage with meropenem, vancomycin. Monitor for risk of seizure with meropenem, risk of AURA with vancomycin. Discussed with them additionally further assessment with GABRIELA given concern for presence of TAVR, bacteremia, possibility of endocarditis. They are agreeable. Discussed with amr physician, appreciate consultation. Additionally discussed consideration of premedicating for contrast-enhanced CT abdomen pelvis to further assess for any collection following appendectomy. Discussed with radiologist, no collection visible on noncontrast study. So far have not yet premedicated him for contrast-enhanced CT as he overall has been improving and prefer to spare him steroids with active bacteremia as well as pending LP. Tomorrow we will repeat blood culture. Discussed with nurse case management. He was on anticoagulation with Eliquis. (2) Acute encephalopathy: Per History obtained today from his without change in terms of symptoms of acute metabolic encephalopathy possibly secondary to sepsis, meningitis. Check respiratory viral panel. Empiric antibiotics as above Unable to perform MRI due to pacemaker. Has a IV contrast allergy. CT of the head unremarkable but with moderate atrophy and volume loss and small vessel disease. Plan Atrial fibrillation Status post TAVR Status post laparoscopic appendectomy in June Attestations 2 Medical Necessity Statement*: Continue admission for assessment management of sepsis, enterococcal bacteremia, meningitis, acute encephalopathy in a gentleman with TAVR. and High Time for a total of 75 minutes, includes reviewing past or interval history, examining/interviewing patient, placing orders, counseling patient/family/other support, discussing plan of care with staff, communicating with other healthcare providers, documenting encounter and coordinating care Diagnoses Sepsis A41.9 Acute encephalopathy G93.40
[2023-09-04] VITALS (11 sets, daily range): BP systolic 134–165; BP diastolic 67–78; PULSE 60–70; RESP 16–17; TEMP 36.4–36.9; O2SAT 92–96
[2023-09-04] MEDS: meropenem 2,000 MG in sodium chloride 0.9% (100 ml) 100 ML 200 MG IV ×3 (02:05→19:20)
[2023-09-04] MEDS: lactated ringers 1,000 ML 75 ML IV ×2 (03:13→19:21)
[2023-09-04] MEDS: acetaminophen 325 mg Tablet 650 MG PO (04:49)
[2023-09-04] MEDS: pantoprazole DR 40 mg Tablet PO (05:03)
[2023-09-04] MEDS: aspirin 81 mg EC Tablet PO (05:03)
[2023-09-04 06:45] LABS: Basophils % 0.1 %; Eosinophils # 0.1 10^3/uL (0.0-0.8); Eosinophils % 0.6 %; Lymphocytes # 5.9 10^3/uL (0.8-4.8); Lymphocytes % 36.4 %; Mean Corpuscular HGB Conc 34.4 g/dL (30-55); Mean Corpuscular Hemoglobin 33.7 pg (27-33); Mean Corpuscular Volume 98.2 fl (82-101); Mean Platelet Volume 9.5 fL (7.4-10.4); Monocytes # 0.9 10^3/uL (0.2-0.9); Monocytes % 5.7 %; Neutrophils % 56.6 %; Nucleated Red Blood Cells % 0 %; Platelet Count 185 10^3/cmm (157-399); Red Blood Count 3.26 10^6/uL (3.85-5.65); Red Cell Distribution Width 13.5 % (12.1-15.1); White Blood Count 16.23 10^3/uL (3.29-11.43)
[2023-09-04 07:07] LABS: Alanine Aminotransferase 55 U/L (0-41); Albumin Level 2.6 g/dL (3.5-5.2); Alkaline Phosphatase 197 U/L (40-130); Anion Gap 11.4 (5-19); Aspartate Amino Transferase 56 U/L (0-40); Blood Urea Nitrogen 15 mg/dL (8-23); Calcium 7.7 mg/dL (8.5-10.5); Carbon Dioxide 23 mmol/L (22-29); Chloride 99 mmol/L (98-107); Creatinine Clr Calc Pharmacy 75.6292; Globulin 2.3 g/dL (1.3-4.6); Glucose 118 mg/dL (65-115); Osmolality Calculated 272 mOsm/kg (285-295); Potassium 3.4 mmol/L (3.5-5.1); Sodium 130 mmol/L (136-145); Total Bilirubin 2.4 mg/dL (0.15-1.2); Total Protein 4.9 g/dL (6.6-8.7)
--- NOTE | 2023-09-04 08:08 | P.CONIM_ITS ---
Providers/Reason For Consult 2 Consulting Physician/Specialty*: LYDIA Guerin MD/cardiology Reason for Consult*: Patient with gram-positive bacteremia to consider GABRIELA to rule out endocarditis Requesting Physician: Dr. Lerner Attending Physician: Shamar Lerner Primary Care Provider: Shayla Mesa MD History of Present Illness History of Present Illness Eddy Miner is a 87 year old male admitted to the hospital through the emergency room where he presented with complaints of progressive weakness, low- grade fever and generalized aches and pains. His blood culture grew Enterococcus faecalis from 1 out of 2 bottles. Cardiology consult is requested to consider a GABRIELA to evaluate for endocarditis. This patient apparently had a acute suppurative and gangrenous appendicitis for which he underwent emergency laparoscopic appendectomy on 23 June. He was found to have a severe aortic valve stenosis by echocardiogram at that time. In the beginning of this month, he underwent TAVR at the [facility] in [place]. According to the patient and his , he has not been feeling that well ever since his appendectomy. He has not been having some amount of lethargy and weakness. However he felt strong enough to go for the aortic valve intervention. But after the intervention, he did not feel any better. He has been getting progressively weaker. He was finding it difficult to navigate around. On the day of hospital admission, he almost dropped to the floor as he was trying to get back to his bed from the bathroom. His had to call the neighbor to help him get out of the floor. He was found to be extremely weak. For that reason, he was brought to the hospital. He has no history for any stomach ulcers or bleeding. No dysphagia. No history of CVA. He had a Myocardial perfusion imaging in December of last year which was unremarkable. He was having some neck rigidity and headache during this hospital admission for which he underwent a lumbar puncture. He has some signs of meningitis. Cardiology consult is mainly requested to do a GABRIELA to evaluate for any endocarditis especially in view of his recent aortic valve replacement. He has no previous history for any coronary disease, myocardial infarction or congestive heart failure. He has a history of chronic atrial fibrillation with? Symptomatic bradycardia. He has a permanent pacemaker and seems to be functioning okay. The pacemaker was placed in August of 2019 at the [facility] by Dr. England. He is on long-term oral anticoagulation. He has no history for endocarditis or osteomyelitis. Review of Systems 2 Narrative: CONSTITUTIONAL: Low-grade fever and generalized weakness as mentioned above. EYES: No blurring of vision or other visual disturbances lately. ENT: No hoarseness of voice, auditory disturbances or sore throat. CARDIOVASCULAR: As mentioned above. RESPIRATORY: No significant cough. GASTROINTESTINAL: Acute suppurative gangrenous appendicitis as mentioned above GENITOURINARY: No dysuria or hematuria. INTEGUMENTARY: No skin rashes or history of skin cancer. NEURO: No transient ischemic attacks or amaurosis. PSYCHIATRIC: No history of psychosis or major depression. HEMATOLOGIC: No bleeding disorders or significant anemia. ENDOCRINE: No history of polyuria or polydipsia. MUSCULOSKELETAL: No recent joint pain or swelling. ALLERGY/IMMUNOLOGY: As mentioned above. Medications/Allergies Home Medications Medication Instructions Recorded Confirmed Last Taken Type dutasteride 0.5 mg capsule 0.5 mg PO QPM 07/10/20 09/01/23 08/18/23 History glucosamine-chondroitin 250 mg-200 1 tab PO BID 01/24/22 09/01/23 06/22/23 07:00 History mg tablet (Osteo Bi-Flex) multivitamin 1 tab PO QAM 01/24/22 09/01/23 08/19/23 History saw palmetto 160 mg capsule 160 mg PO TID 01/24/22 09/01/23 06/22/23 07:00 History turmeric 400 mg capsule 400 mg PO BID 01/24/22 09/01/23 06/22/23 07:00 History vitamin A 2,400 mcg capsule 2,400 mcg PO DAILY 01/24/22 09/01/23 06/21/23 17:00 History vitamin B complex 1 cap PO QAM 01/24/22 09/01/23 06/22/23 07:00 History aspirin 81 mg tablet,delayed 81 mg PO QAM 02/25/22 09/01/23 08/19/23 History release (Adult Low Dose Aspirin) fluticasone propionate 50 2 spray intranasal DAILY PRN 09/01/22 09/01/23 06/22/23 07:00 History mcg/actuation nasal allergies spray,suspension loratadine 10 mg tablet 10 mg PO DAILY PRN allergies 09/01/22 09/01/23 06/22/23 07:00 History Custom Molded Copolymer Orthotics #1 ea 12/28/22 09/01/23 Unknown Rx and Orthopedic Shoes albuterol sulfate 90 mcg/actuation 2 puff inhalation BID PRN 03/02/23 09/01/23 06/22/23 07:00 History aerosol inhaler (ProAir HFA) Shortness Of Breath clobetasol 0.05 % topical cream See Rx Instructions .Route .COMPLEX 06/23/23 09/01/23 Unknown History cyclobenzaprine 10 mg tablet 10 mg PO TID PRN Muscle Spasm 06/23/23 09/01/23 09/01/23 03:30 History diltiazem HCl 120 mg 120 mg PO QAM 06/23/23 09/01/23 06/22/23 07:00 History capsule,extended release 24 hr ferrous sulfate 325 mg (65 mg 325 mg PO DAILY@06/23/23 09/01/23 08/19/23 History iron) tablet (Iron (ferrous sulfate)) mometasone 200 mcg/actuation HFA 1 puff inhalation BID 06/23/23 09/01/23 08/31/23 History aerosol inhaler olodaterol 2.5 mcg/actuation mist 2 inh inhalation QAM 06/23/23 09/01/23 09/01/23 History for inhalation apixaban 5 mg tablet (Eliquis) 5 mg PO BID 08/19/23 09/01/23 08/19/23 History potassium gluconate 595 mg (99 mg) 595 mg PO QPM 08/19/23 09/01/23 Unknown History tablet Super R-Lipoic Acid 1 cap PO QAM 09/01/23 09/01/23 Unknown History acetylcarnitine HCl 250 mg capsule 250 mg PO DAILY 09/01/23 09/01/23 Unknown History ascorbic acid (vitamin C) 500 mg 500 mg PO DAILY@12 09/01/23 09/01/23 Unknown History tablet (Vitamin C) ashwagandha root extract 500 mg 500 mg PO DAILY 09/01/23 09/01/23 Unknown History capsule calcium carb 333 mg-vit D3 133 1 tab PO BID 09/01/23 09/01/23 Unknown History unit-mag ox 133 mg-zinc oxide 5 mg tab (Romie Mag Zinc Plus D3) cholecalciferol (vitamin D3) 125 125 mcg PO QAM 09/01/23 09/01/23 Unknown History mcg (5,000 unit) tablet (Vitamin D3) coenzyme Q10 100 mg capsule 100 mg PO QAM 09/01/23 09/01/23 Unknown History (CoQ-10) cyanocobalamin (vitamin B-12) 1,000 mcg PO DAILY@12 09/01/23 09/01/23 Unknown History 1,000 mcg tablet (Vitamin B-12) gabapentin 300 mg capsule 300 mg PO TID 09/01/23 09/01/23 Unknown History montelukast 10 mg tablet 10 mg PO QPM 09/01/23 09/01/23 Unknown History omeprazole magnesium 20 mg 20 mg PO QAM 09/01/23 09/01/23 Unknown History tablet,delayed release (Prilosec OTC) prednisone 20 mg tablet 40 mg PO DAILY 09/01/23 09/01/23 08/31/23 History FINISHED 08/31/23 trazodone 50 mg tablet 50 mg PO BEDTIME 09/01/23 09/01/23 Unknown History Allergies Allergy/AdvReac Type Severity Reaction Status Date / Time Sulfa (Sulfonamide Allergy Unknown unknown Verified 08/23/23 10:20 Antibiotics) amlodipine Allergy Unknown Verified 08/31/23 16:10 amoxicillin Allergy ALGY-Rash Verified 08/23/23 10:20 Iodinated Contrast Media Allergy Unknown Verified 08/23/23 10:20 Current Medications Generic Name Dose Route Start Last Admin Trade Name Freq PRN Reason Stop Dose Admin Acetaminophen 650 mg 09/01/23 13:24 09/04/23 04:49 Acetaminophen 325 Mg Tablet PO 650 mg Q6H PRN Administration Mild/Mod Pain Or Temp >/= 101 Aspirin 81 mg 09/02/23 06:00 09/04/23 05:03 Aspirin 81 Mg Ec Tablet PO 81 mg QAM TERENCE Administration Gabapentin 300 mg 09/01/23 15:00 09/03/23 20:08 Gabapentin 300 Mg Capsule PO 300 mg TID TERENCE Administration Heparin Sodium (Porcine) 5,000 unit 09/01/23 13:30 09/03/23 00:33 Heparin 5,000 Unit/Ml Inj 1 Ml SUBCUT 5,000 unit Q12H TERENCE Administration Meropenem 2,000 mg/ Sodium 100 mls @ 200 mls/hr 09/01/23 19:00 09/04/23 02:47 Chloride IV Infused Q8H TERENCE Infusion Protocol Lactated Ringer's 1,000 mls @ 75 mls/hr 09/01/23 13:30 09/04/23 03:13 Lactated Ringers IV 75 mls/hr .[id number] TERENCE Administration Vancomycin/PEG/NADA/Lysine/Water 1,500 mg in 300 mls @ 200 mls/hr 09/03/23 14:00 09/03/23 16:27 Vancocin IV Infused Q24H TERENCE Infusion Pantoprazole Sodium 40 mg 09/02/23 06:00 09/04/23 05:[address] 40 Mg Tablet PO 40 mg QAM TERENCE Administration Trazodone HCl 50 mg 09/01/23 21:00 09/03/23 20:08 Trazodone 50 Mg Tablet PO 50 mg BEDTIME TERENCE Administration PFSH Acute 2 PFSH: Medical History History of nonmelanoma skin cancer Pain in right lower leg Lower extremity edema Pacemaker Hypertension Surgical History Status post laparoscopic appendectomy S/P cardiac pacemaker procedure S/P knee surgery S/P vasectomy Family History Mother Myocardial infarction Social History Smoking and tobacco/nicotine status: former use of tobacco/nicotine Alcohol intake: never Substance/Drug Use: never Vitals/I&O/Wt Last Vital Signs Temp 97.8 F 09/04/23 07:20 Pulse 60 09/04/23 07:20 Resp 16 09/04/23 07:20 BP 165/74 09/04/23 07:20 Pulse Ox 94 09/04/23 07:20 O2 Del Method Room Air 09/04/23 07:20 FiO2 21 09/04/23 06:14 09/03/23 09/04/23 09/04/23 22:59 06:59 14:59 Intake Total 1000 / 1850 1153.75 / 3003.75 Output Total 900 / 900 300 / 1200 Balance 100 / 950 853.75 / 1803.75 Weight last 48 hrs Weight 204 lb Weight 208 lb 8 oz Physical Exam 2 Narrative: GENERAL: The patient is alert and oriented times three. Not in any acute distress. But appears very tired HEENT: Minimal pallor. No icterus or lymphadenopathy.Oral cavity: There are no mucous membrane lesions. NECK: Trachea appears to be central. No masses noted. No JVD or thyromegaly appreciated. RESPIRATORY: Chest is symmetrical. No intercostals muscle retraction or any accessory muscle activation. There is no chest wall tenderness. Breath sounds are heard bilaterally. No rales or rhonchi heard. No evidence of any consolidation. BREASTS: Deferred. HEART: The heart sounds are normal. No S3 or S4. Short systolic murmur in the lower sternal border. No diastolic murmurs. No pericardial rub ABDOMEN: No vessel pulsations or distention. No tenderness. No organomegaly appreciated. Bowel sounds are normally heard. : Deferred. RECTAL: Deferred. LYMPHATIC: No lymphadenopathy noted in the neck. EXTREMITIES: No edema or cyanosis. No clubbing. MUSCULOSKELETAL: No acute joint deformities or swelling SKIN: There are no significant rashes or ecchymosis NEUROPSYCHIATRIC: The patient is alert and oriented x3. Appears to be in a good mood. No tremors or rigidity noted. Urinary Catheter Management: Vickers: Cath Placed During This Visit: yes Reason for Continuing Indwelling Catheter: Acute Urinary Retention or Obstruction Urinary Catheter Date of Insertion: 09/02/23 Urinary Catheter Time of Insertion: 19:00 Data 09/04/23 06:36 09/04/23 06:36 Other Labs: Laboratory Last Values WBC 16.23 10^3/uL (3.29-11.43) H 09/04/23 06:36 RBC 3.26 10^6/uL (3.85-5.65) L 09/04/23 06:36 Hgb 11.00 g/dL (11.27-16.99) L 09/04/23 06:36 Hct 32.0 % (37-53) L 09/04/23 06:36 MCV 98.2 fl (82-101) 09/04/23 06:36 MCH 33.7 pg (27-33) H 09/04/23 06:36 MCHC 34.4 g/dL (30-55) 09/04/23 06:36 RDW 13.5 % (12.1-15.1) 09/04/23 06:36 Plt Count 185 10^3/cmm (157-399) 09/04/23 06:36 MPV 9.5 fL (7.4-10.4) 09/04/23 06:36 Neut % (Auto) 56.6 % 09/04/23 06:36 Lymph % (Auto) 36.4 % 09/04/23 06:36 Winston % (Auto) 5.7 % 09/04/23 06:36 Eos % (Auto) 0.6 % 09/04/23 06:36 Baso % (Auto) 0.1 % 09/04/23 06:36 Neut # (Auto) 9.20 10^3/uL (1.8-7.7) H 09/04/23 06:36 Lymph # (Auto) 5.9 10^3/uL (0.8-4.8) H 09/04/23 06:36 Winston # (Auto) 0.9 10^3/uL (0.2-0.9) 09/04/23 06:36 Eos # (Auto) 0.1 10^3/uL (0.0-0.8) 09/04/23 06:36 Baso # (Auto) 0.0 10^3/uL (0.0-0.1) 09/04/23 06:36 Nucleated RBC % (auto) 0 % 09/04/23 06:36 Nucleated RBCs # 0.0 /100WBC 09/04/23 06:36 PT 21.80 SECONDS (12.1-14.9) H 09/01/23 07:45 INR 1.83 (0.8-1.2) H 09/01/23 07:45 Specimen Type Arterial 09/01/23 08:50 Sample Site Radial, right 09/01/23 08:50 ABG pH 7.55 (7.35-7.45) H 09/01/23 08:50 ABG pCO2 27.9 mmHg (35-45) L 09/01/23 08:50 ABG pO2 70.2 mmHg (80.0-100.0) L 09/01/23 08:50 ABG PO2/FiO2 Ratio 0 09/01/23 08:50 ABG HCO3 24.1 mmol/L (22-26) 09/01/23 08:50 ABG O2 Saturation 95.9 09/01/23 08:50 ABG Base Excess 2.5 mmol/L (-2.0-2.0) H 09/01/23 08:50 Benjamin Test Pos 09/01/23 08:50 A-a O2 Gradient 5.8 mmHg (5-10) 09/01/23 08:50 Hematocrit 38.9 % (42-52) L 09/01/23 08:50 Hgb O2 Saturation 94.5 % (95-100) L 09/01/23 08:50 Carboxyhemoglobin 1.3 %THgb (0.4-20.1) 09/01/23 08:50 Methemoglobin 0.1 % (0.4-1.5) L 09/01/23 08:50 Total Hemoglobin 12.7 g/dL (14-18) L 09/01/23 08:50 Sodium 132.0 mmol/L (131-143) 09/01/23 08:50 Potassium 3.9 mmol/L (3.5-5.0) 09/01/23 08:50 Glucose 109.0 mg/dL (70-115) 09/01/23 08:50 Ionized Calcium 1.2 mmol/L (1.1-1.4) 09/01/23 08:50 O2 Delivery Device Room air 09/01/23 08:50 FiO2 21.0 % 09/01/23 08:50 Tankerman ID glc 09/01/23 08:50 Sodium 130 mmol/L (136-145) L 09/04/23 06:36 Potassium 3.4 mmol/L (3.5-5.1) L 09/04/23 06:36 Chloride 99 mmol/L (98-107) 09/04/23 06:36 Carbon Dioxide 23 mmol/L (22-29) 09/04/23 06:36 Anion Gap 11.4 (5-19) 09/04/23 06:36 BUN 15 mg/dL (8-23) 09/04/23 06:36 Creatinine 0.7 mg/dL (0.7-1.2) 09/04/23 06:36 GFR Calculation Not Reportable 09/04/23 06:36 Glucose 118 mg/dL (65-115) H 09/04/23 06:36 Calculated Osmolality 272 mOsm/kg (285-295) L 09/04/23 06:36 Lactic Acid 4.7 mmol/L (0.5-2.2) H* 09/01/23 07:45 Lactic Acid (Sepsis) 1.4 mmol/L (0.5-2.2) 09/01/23 10:13 Calcium 7.7 mg/dL (8.5-10.5) L 09/04/23 06:36 Magnesium 2.1 mg/dL (1.7-2.3) 09/01/23 07:45 Total Bilirubin 2.4 mg/dL (0.15-1.2) H 09/04/23 06:36 AST 56 U/L (0-40) H 09/04/23 06:36 ALT 55 U/L (0-41) H 09/04/23 06:36 Alkaline Phosphatase 197 U/L (40-130) H 09/04/23 06:36 Troponin T Baseline 46 ng/L (0-15) H 09/01/23 07:45 Troponin T 120 Minute 50.18 ng/L (0-15) H 09/01/23 10:13 Delta Troponin T 4.18 ABS# (0-10) 09/01/23 10:13 Troponin T Hi Sens 6Hr 54.36 ng/L (0-15) H 09/01/23 13:55 Troponin T Hi Sens 6Hr Delta 8.36 ng/L (0-12) 09/01/23 13:55 Total Protein 4.9 g/dL (6.6-8.7) L 09/04/23 06:36 Albumin 2.6 g/dL (3.5-5.2) L 09/04/23 06:36 Globulin 2.3 g/dL (1.3-4.6) 09/04/23 06:36 Lipase 21 U/L (13-60) 09/01/23 07:45 Urine Color Yellow (Yellow) 09/01/23 09:36 Urine Appearance Clear (CLEAR) 09/01/23 09:36 Urine pH 8 (5-7) H 09/01/23 09:36 Ur Specific [place] 1.015 (1.005-1.030) 09/01/23 09:36 Urine Protein Neg (Negative) 09/01/23 09:36 Urine Glucose (UA) Norm (Normal) 09/01/23 09:36 Urine Ketones Negative (Negative) 09/01/23 09:36 Urine Blood Neg (Negative) 09/01/23 09:36 Urine Nitrate Negative (Negative) 09/01/23 09:36 Urine Bilirubin Neg (Negative) 09/01/23 09:36 Urine Urobilinogen Norm mg/dL (Negative) 09/01/23 09:36 Ur Leukocyte Esterase Negative (Negative) 09/01/23 09:36 CSF Appearance Hazy (CLEAR) 09/03/23 13:50 CSF Color Colorless (COLORLESS) 09/03/23 13:50 CSF WBC 78 /uL (0-5) H 09/03/23 13:50 CSF RBC 0 10^3/uL (0-0) 09/03/23 13:50 CSF Mononuclear # Auto 0.041 10^3/uL (50-90) L 09/03/23 13:50 CSF Mononuclear WBCs % 53 % (50-90) 09/03/23 13:50 CSF Polynuclear WBCs # 0.037 10^3/uL (0-10) 09/03/23 13:50 CSF Polynuclear WBCs % 47 % (0-10) H 09/03/23 13:50 CSF Diff Comment Yes 09/03/23 13:50 CSF Glucose 35 mg/dL (40-70) L 09/03/23 13:50 CSF Total Protein 69 mg/dL (15-45) H 09/03/23 13:50 Adenovirus (PCR) Not detected (NOT DETECT) 09/01/23 16:14 C. pneumoniae DNA (PCR) Not detected (NOT DETECT) 09/01/23 16:14 Coronavirus 229E (PCR) Not detected (NOT DETECT) 09/01/23 16:14 Human Metapneumovir PCR Not detected (NOT DETECT) 09/01/23 16:14 Influenza A (H1) PCR Not detected (NOT DETECT) 09/01/23 16:14 Influ A (H1/09) PCR Not detected (NOT DETECT) 09/01/23 16:14 Influenza A (H3) PCR Not detected (NOT DETECT) 09/01/23 16:14 Influenza Type A (PCR) Not detected (NOT DETECT) 09/01/23 16:14 Influenza Type B (PCR) Not detected (NOT DETECT) 09/01/23 16:14 M. pneumoniae (PCR) Not detected (NOT DETECT) 09/01/23 16:14 Parainfluenza 1 (PCR) Not detected (NOT DETECT) 09/01/23 16:14 Parainfluenza 2 (PCR) Not detected (NOT DETECT) 09/01/23 16:14 Parainfluenza 3 (PCR) Not detected (NOT DETECT) 09/01/23 16:14 Parainfluenza 4 (PCR) Not detected (NOT DETECT) 09/01/23 16:14 RSV Type A (PCR) Not detected (NOT DETECT) 09/01/23 16:14 RSV Type B (PCR) Not detected (NOT DETECT) 09/01/23 16:14 Entero/Rhino (PCR) Not detected (NOT DETECT) 09/01/23 16:14 SARS-CoV-2 (PCR) Not detected (NOT DETECT) 09/01/23 16:14 Micro: Microbiology 09/03/23 13:50 Gram Stain - Final Cerebrospinal Fluid Other data: Echocardiogram done on 09/01/2023 normal left ventricular size, systolic function and wall thickness, with no regional wall motion abnormalities. Grade II/IV diastolic dysfunction, moderately elevated filling pressures. Left ventricular ejection fraction is estimated at 65 %. Structurally normal mitral valve. Moderate mitral valve regurgitation. Aortic valve is thickened. There may have been a transaortic valve replacement done. Trace to mild aortic insufficiency. Previous echo was done 2 months ago. There was severe aortic stenosis. It appears a transaortic valve has been placed since then. Otherwise, no change. Procedure(s): NM james perf SPECT r/s* [id number] ?IMPRESSIONS ?1. Myocardial perfusion imaging is normal. ?2. Overall left ventricular systolic function is normal without regional wall ?motion abnormalities, LVEF=79%. ?3. EKG portion of the study will be reported separately. ?4. Scan indicates low risk for cardiac events. A&P Assessment and plan (1) Bacteremia: Possibility of endocarditis is a consideration. I agree with the GABRIELA to rule out endocarditis. Discussed with the patient and his about the procedure, possible risk and benefits. The risk of aspiration, bleeding, soft tissue injury, perforation of the stomach/esophagus and other concomitant complications were explained to the patient in detail. The patient understood this well and consented to proceed. I answered all the questions the patient and his had to their satisfaction. We may go ahead and do schedule this as early as possible. (2) Status post transcatheter aortic valve replacement (TAVR) using bioprosthesis: In view of the recent appendectomy and the TAVR, possibility of intra-abdominal infection entering into the bloodstream is a consideration. (3) Hypertension: Currently normotensive. Qualifiers: Hypertension type: unspecified Qualified Code(s): I10 - Essential (primary) hypertension (4) Chronic atrial fibrillation: The patient is on long-term oral anticoagulation. This may be continued. I may hold the Eliquis this morning (5) Presence of permanent cardiac pacemaker: The pacemaker function appears to be appropriate. (6) Hypertension: Currently normotensive. Qualifiers: Hypertension type: primary hypertension Qualified Code(s): I10 - Essential (primary) hypertension (7) Status post appendectomy: Because of the suppurative gangrenous appendicitis, possibility of this being a source is a consideration. Plan Will go ahead and schedule this procedure as early as possible Based on the GABRIELA findings, further recommendations will be made Consult Attestations 2 Medical Necessity Statement: Deferred to the primary Coding Level of Care Code 03512 Diagnoses Bacteremia R78.81 Status post transcatheter aortic valve replacement (TAVR) using bioprosthesis Z95.3 Hypertension I10 Hypertension type: unspecified Chronic atrial fibrillation I48.20 Presence of permanent cardiac pacemaker Z95.0 Status post appendectomy Z90.49
[2023-09-04] MEDS: gabapentin 300 mg Capsule PO ×3 (08:15→20:19)
[2023-09-04] MEDS: vancomycin 1,500 MG/300 ML PIGGYBACK 200 MG IV (14:24)
--- NOTE | 2023-09-04 18:41 | P.PN_ITS ---
Subjective 2 Subjective: Reports he is doing okay. Appears to be in better mood today, with quips and banter. Denies any headache. Does have some tenderness in right lower quadrant. No headache. Vitals/I&O/Wt Last Vital Signs Temp 97.9 F 09/04/23 16:27 Pulse 62 09/04/23 16:27 Resp 16 09/04/23 16:27 BP 153/69 09/04/23 16:27 Pulse Ox 95 09/04/23 16:27 O2 Del Method Room Air 09/04/23 16:27 FiO2 21 09/04/23 06:14 09/04/23 09/04/23 09/04/23 06:59 14:59 22:59 Intake Total 1153.75 / 3003.75 100 / 100 1300 / 1400 Output Total 300 / 1200 2300 / 2300 Balance 853.75 / 1803.75 -2200 / -2200 1300 / -900 Weight last 48 hrs Weight 92.533 kg Weight 94.574 kg Physical Exam 2 Narrative: Accompanied by his Const: COMMON NORMALS: patient oriented x3 and alert GENERAL APPEARANCE: c ooperative and lethargic (Wakes up to) ORIENTATION/CONSCIOUSNESS: Yes lethargic (Wakes up to) HENMT: COMMON NORMALS: oropharynx normal Neck/C-Spine: COMMON NORMALS: no JVD Resp: COMMON NORMALS: normal respiratory effort and clear to auscultation bilaterally AUSCULTATION: clear to auscultation bilaterally Cardio: COMMON NORMALS: no JVD, regular rhythm, S1 normal heart sound present, S2 normal heart sound present and No murmurs present (Cardio) RHYTHM: regular rhythm HEART SOUNDS: S1 normal heart sound present and S2 normal heart sound present GI: COMMON NORMALS: Normal to inspection, nondistended, normoactive bowel sounds present and Soft to palpation PALPATION: Yes Soft to palpation and Yes Tenderness to palpation present (GI) Details: RLQ Extremity: COMMON NORMALS: no joint enlargement and no pedal edema Neuro: COMMON NORMALS: patient oriented x3 and moves all extremities S ENSORIUM/ORIENTATION: Yes alert and Yes lethargic (Wakes up to) OTHER: No rigidity, but pain with tilting his head forward. Skin: COMMON NORMALS: no rashes or lesions noted GENERAL SKIN EXAM: no rashes or lesions noted Urinary Catheter Management: Vickers: Cath Placed During This Visit: yes Reason for Continuing Indwelling Catheter: Other Urinary Catheter Date of Insertion: 09/02/23 Urinary Catheter Time of Insertion: 19:00 Data 09/04/23 06:36 09/04/23 06:36 Micro: Microbiology 09/03/23 13:50 Gram Stain - Final Cerebrospinal Fluid CSF Culture - Preliminary 09/04/23 13:19 Blood Culture - Preliminary Blood SPECIMEN COLLECTED 09/04/23 13:16 Blood Culture - Preliminary Blood SPECIMEN COLLECTED A&P Assessment and plan (1) Bacteremia due to Enterococcus: High-grade enterococcal bacteremia, 4/4 bottles positive., Reviewed preliminary currently. Reviewed vitals, CBC, CMP, vancomycin trough. Also has concomitant meningitis. Unclear if enterococcal meningitis with bacteremia versus bacteremia with seeding causing meningitis. Does also have aortic valve which is at risk of seeding with bacteria. As per discussion with him and with cardiology arrangements are being made with him and cardiology for GABRIELA. Consideration was given whether could be done today, but it appears to be until Wednesday. He also has been having tenderness on palpation right lower quadrant, has had necrotizing appendicitis 2 months ago with laparoscopic appendectomy. Will additionally has prescription with him and his of risks assess with contrast and head CT. He requires premedication due to prior contrast allergy as per discussion with him and his . Requested prednisone Dose at 13 hours, 7 hours and [address] as well as Benadryl 50 mg [address] we have not pursued the CT sooner, discussed with them concerns regarding immune suppression with prednisone. The purpose of taking this risk and obtain the study would be to find a possible source of bacteremia in case there is any residual abscess, fluid collection, leak at the site of prior necrotizing appendicitis. Collected repeat blood culture today. Reassess. Continue empiric coverage with meropenem, vancomycin, monitor for risk of seizure with meropenem, risk of kidney injury with vancomycin. Follow-up repeat blood culture, assess when he may have a PICC line placed as per discussion with him and his to continue IV antibiotic regimen outpatient. Follow-up enterococcal culture for sensitivities. Consider referral for follow-up with ID clinic. 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 Additional assessment as above. Continue treatment with meropenem, Comycin as above. For now on isolation, pending CSF cultures. Follow-up. Unable to perform MRI due to pacemaker. Has a IV contrast allergy. CT of the head unremarkable but with moderate atrophy and volume loss and small vessel disease. His encephalopathy so far has improved he is more alert, more awake, in better spirits today. 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 (3) Sepsis: Sepsis resolved. Reviewed vitals, CBC, CMP. Blood culture, CSF culture. Plan Atrial fibrillation: Eliquis has been on hold for lumbar puncture. Will resume on some prophylactic heparin for now. Pending additional assessment with CT abdomen pelvis, GABRIELA, consider resumption of anticoagulation no further procedures anticipated. Status post TAVR Status post laparoscopic appendectomy in June Attestations 2 Medical Necessity Statement*: Continue admission for assessment of management of high-grade enterococcal bacteremia, meningitis, and gentleman with TAVR, assessment for possible endocarditis, assessment of right lower quadrant pain with previously necrotizing appendicitis 2 months ago in a gentleman of advanced age. Diagnoses Bacteremia due to Enterococcus R78.81; B95.2 Acute encephalopathy G93.40 Sepsis A41.9
[2023-09-04] MEDS: predniSONE 20 mg Tablet 50 MG PO (19:20)
[2023-09-04] MEDS: trazodone 50 mg Tablet PO (20:19)
[2023-09-05] VITALS (8 sets, daily range): BP systolic 126–162; BP diastolic 61–79; PULSE 60–76; RESP 17–20; TEMP 36.2–36.5; O2SAT 92–95
[2023-09-05] MEDS: predniSONE 20 mg Tablet 50 MG PO ×2 (01:25→06:33)
[2023-09-05] MEDS: heparin 5,000 unit/mL INJ 1 mL 5000 UNIT SUBCUT ×2 (01:25→14:52)
[2023-09-05] MEDS: meropenem 2,000 MG in sodium chloride 0.9% (100 ml) 100 ML 200 MG IV ×3 (03:00→21:53)
[2023-09-05 04:41] LABS: Basophils % 0.1 %; Hematocrit 33.8 % (37-53); Lymphocytes # 5.8 10^3/uL (0.8-4.8); Lymphocytes % 30.6 %; Mean Corpuscular HGB Conc 33.7 g/dL (30-55); Mean Corpuscular Hemoglobin 33.3 pg (27-33); Mean Corpuscular Volume 98.8 fl (82-101); Mean Platelet Volume 9.9 fL (7.4-10.4); Monocytes # 0.4 10^3/uL (0.2-0.9); Monocytes % 1.9 %; Neutrophils # 12.62 10^3/uL (1.8-7.7); Neutrophils % 66.9 %; Nucleated Red Blood Cells % 0 %; Platelet Count 175 10^3/cmm (157-399); Red Blood Count 3.42 10^6/uL (3.85-5.65); Red Cell Distribution Width 13.4 % (12.1-15.1); White Blood Count 18.82 10^3/uL (3.29-11.43)
[2023-09-05 05:02] LABS: Alanine Aminotransferase 53 U/L (0-41); Albumin Level 2.8 g/dL (3.5-5.2); Alkaline Phosphatase 209 U/L (40-130); Anion Gap 15.6 (5-19); Aspartate Amino Transferase 46 U/L (0-40); Blood Urea Nitrogen 15 mg/dL (8-23); Calcium 7.8 mg/dL (8.5-10.5); Carbon Dioxide 22 mmol/L (22-29); Chloride 101 mmol/L (98-107); Creatinine Clr Calc Pharmacy 75.6292; Globulin 2.4 g/dL (1.3-4.6); Glucose 143 mg/dL (65-115); Osmolality Calculated 283 mOsm/kg (285-295); Potassium 3.6 mmol/L (3.5-5.1); Sodium 135 mmol/L (136-145); Total Bilirubin 2.2 mg/dL (0.15-1.2); Total Protein 5.2 g/dL (6.6-8.7)
[2023-09-05] MEDS: pantoprazole DR 40 mg Tablet PO (06:33)
[2023-09-05] MEDS: diphenhydrAMINE 50 mg Capsule PO (06:33)
[2023-09-05] MEDS: aspirin 81 mg EC Tablet PO (06:33)
--- NOTE | 2023-09-05 08:30 | CTR_ITS ---
PROCEDURE INFORMATION: Exam: CT Abdomen And Pelvis With Contrast Exam date and time: 09/05/2023 9:46 AM Age: 87 years old Clinical indication: Abdominal pain; Localized; Right lower quadrant (rlq); Additional info: Rlq tenderness, enterococcal bacteremia, necrotic appendicitis 2 mo ago. TECHNIQUE: Imaging protocol: Computed tomography of the abdomen and pelvis with contrast. Radiation optimization: All CT scans at this facility use at least one of these dose optimization techniques: automated exposure control; mA and/or kV adjustment per patient size (includes targeted exams where dose is matched to clinical indication); or iterative reconstruction. Contrast material: OMNI 350; Contrast volume: 100 ml; Contrast route: INTRAVENOUS (IV); Other contrast: Oral, water soluble, 750 ml; COMPARISON: CT abdomen pelvis wo con [id number] 09/01/2023 10:27 AM RADIATION DOSE METRICS: Total DLP (mGy-cm): 845.15 FINDINGS: Tubes, catheters and devices: There is a pacemaker in place. There is coronary artery calcification. There is a small pericardial effusion. There are small bilateral pleural effusions that have increased in size compared with the prior study Lungs: There is bibasilar atelectasis which has increased compared with the prior study. Heart: This patient has undergone previous TAVR procedure. Liver: Low-density adjacent to the falciform ligament is favored to be focal fatty infiltration of the liver. The liver is otherwise unremarkable. Gallbladder and bile ducts: There are no gallstones detected there may be some sludge in the gallbladder. There is no gallbladder wall thickening or biliary ductal dilatation. Pancreas: The pancreas is mildly atrophic. No pancreatic mass or ductal dilatation is present. Spleen: Abnormal low-density is noted in the anterior spleen not seen previously however the previous study did not have contrast. 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 There is accessory splenic tissue. Adrenal glands: The adrenal glands are unremarkable. Kidneys and ureters: There is bilateral renal cortical scarring. Low-density lesions in both kidneys favored to be cysts. There is renovascular calcification. There is no hydronephrosis. There is bilateral perinephric stranding. Stomach and bowel: The bowel-gas pattern is not obstructed. Mildly dilated small bowel with air-fluid levels may indicate an adynamic ileus. There is a moderate amount of stool in the colon with a large amount of stool in the rectum with rectal distension, worrisome for fecal impaction. Appendix: Patient had necrotic appendicitis in June 2023 and presumably the appendix was removed Intraperitoneal space: There is free fluid anterior to the sacrum and in the right anterior pelvis which was not present previously. There is no organized abscess. The right anterior pelvic fluid collection lies adjacent to portions of the colon and small bowel loops. There is mild small bowel wall thickening involving ileal loops. There also is bowel wall thickening involving the duodenum . Findings suggest enteritis/inflammation. There is no free or extraluminal air Vasculature: There are atherosclerotic changes in the aorta and branch vessels . Lymph nodes: There are mildly prominent external iliac lymph nodes as before. There are mildly enlarged retroperitoneal lymph nodes as before Urinary bladder: There is a Vickers catheter in the bladder with circumferential bladder wall thickening . Small focus of air in the bladder likely introduced via the Vickers catheter Reproductive: The prostate gland is enlarged and heterogeneous. Bones/joints: Unremarkable. No acute fracture. Soft tissues: There are small moderate bilateral inguinal hernias containing fat. The anterior right side of the bladder extends minimally into the mouth of the right inguinal hernia. There is no bowel in either 1. CT/CT abdomen pelvis w con* [id number] IMPRESSION: 1. When compared with recent study from 09/01/2023, there are new fluid collections in the presacral region in the right anterior pelvis. These do not appear to represent organized abscesses at this point in time . The right anterior fluid collection lies adjacent to portions of the colon and small bowel loops . There is mild small bowel wall thickening involving portions of the ileum as well as the duodenum suggesting inflammation/enteritis 2. Negative for free or extraluminal air 3. 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 4. Moderate amount of stool in the colon with a large amount of stool in the rectum worrisome for impending fecal impaction. Mildly dilated small bowel loops may indicate an adynamic ileus. 5. Vickers catheter. Wall thickening bladder 6. Enlarged prostate gland 7. Bilateral inguinal hernias. Bladder extends minimally into the mouth of the right hernia 8. Bilateral renal cortical scarring. Probable cysts both kidneys. Negative for hydronephrosis. New line 9. Interval increase in size of bilateral pleural effusions and increase in bibasilar atelectasis 9. TAVR. Pacemaker. Small pleural effusion. COMMENTS: Consistent with the [employer]'s Incidental Findings Committee white paper (J Am Jorgito Radiol 2018): Any incidental renal lesion less than 1 cm or classified as too small to characterize, or any incidental cystic renal lesion characterized as simple-appearing, is likely benign. No follow-up imaging is recommended for these lesions per consensus recommendations based on imaging criteria.
[2023-09-05] MEDS: vancomycin 1,500 MG/300 ML PIGGYBACK 200 MG IV (09:12)
[2023-09-05] MEDS: iohexol 350 mg/mL 500 mL Btl (per mL) IV (09:50)
[2023-09-05] MEDS: iohexol 350 mg/mL 500 mL Btl (per mL) PO (09:59)
[2023-09-05] MEDS: lactated ringers 1,000 ML 75 ML IV (10:50)
[2023-09-05] MEDS: bisacodyl 10 mg Supp PR (14:53)
[2023-09-05] MEDS: gabapentin 300 mg Capsule PO ×2 (14:53→21:32)
--- NOTE | 2023-09-05 15:33 | P.CONIM_ITS ---
Providers/Reason For Consult 2 Consulting Physician/Specialty*: General surgery Reason for Consult*: Bacteremia Attending Physician: Shamar Lerner Primary Care Provider: Shayla Mesa MD History of Present Illness History of Present Illness Eddy Miner is a 87 year old male, with history of gangrenous appendicitis in June that was treated with appendectomy and subsequently had total aortic valve replacement at the beginning of August. He recently presented to the hospital with altered mental status low-grade fever and weakness. He was noted to have E. coli bacteremia. During hospital stay he complained of some pain in his right lower quadrant and therefore a CAT scan of the abdomen pelvis with contrast was obtained, CT scan showed evidence of mild inflammation of the terminal ileum as well as some free fluid in the pelvis. No significant abscess or any other findings concerning for the possibility of a small bowel obstruction or bowel perforation. Review of Systems 2 General: Reports: ROS unobtainable due to medical condition Medications/Allergies Home Medications Medication Instructions Recorded Confirmed Last Taken Type dutasteride 0.5 mg capsule 0.5 mg PO QPM 07/10/20 09/01/23 08/18/23 History glucosamine-chondroitin 250 mg-200 1 tab PO BID 01/24/22 09/01/23 06/22/23 07:00 History mg tablet (Osteo Bi-Flex) multivitamin 1 tab PO QAM 01/24/22 09/01/23 08/19/23 History saw palmetto 160 mg capsule 160 mg PO TID 01/24/22 09/01/23 06/22/23 07:00 History turmeric 400 mg capsule 400 mg PO BID 01/24/22 09/01/23 06/22/23 07:00 History vitamin A 2,400 mcg capsule 2,400 mcg PO DAILY 01/24/22 09/01/23 06/21/23 17:00 History vitamin B complex 1 cap PO QAM 01/24/22 09/01/23 06/22/23 07:00 History aspirin 81 mg tablet,delayed 81 mg PO QAM 02/25/22 09/01/23 08/19/23 History release (Adult Low Dose Aspirin) fluticasone propionate 50 2 spray intranasal DAILY PRN 09/01/22 09/01/23 06/22/23 07:00 History mcg/actuation nasal allergies spray,suspension loratadine 10 mg tablet 10 mg PO DAILY PRN allergies 09/01/22 09/01/23 06/22/23 07:00 History Custom Molded Copolymer Orthotics #1 ea 12/28/22 09/01/23 Unknown Rx and Orthopedic Shoes albuterol sulfate 90 mcg/actuation 2 puff inhalation BID PRN 03/02/23 09/01/23 06/22/23 07:00 History aerosol inhaler (ProAir HFA) Shortness Of Breath clobetasol 0.05 % topical cream See Rx Instructions .Route .COMPLEX 06/23/23 09/01/23 Unknown History cyclobenzaprine 10 mg tablet 10 mg PO TID PRN Muscle Spasm 06/23/23 09/01/23 09/01/23 03:30 History diltiazem HCl 120 mg 120 mg PO QAM 06/23/23 09/01/23 06/22/23 07:00 History capsule,extended release 24 hr ferrous sulfate 325 mg (65 mg 325 mg PO DAILY@12 06/23/23 09/01/23 08/19/23 History iron) tablet (Iron (ferrous sulfate)) mometasone 200 mcg/actuation HFA 1 puff inhalation BID 06/23/23 09/01/23 08/31/23 History aerosol inhaler olodaterol 2.5 mcg/actuation mist 2 inh inhalation QAM 06/23/23 09/01/23 09/01/23 History for inhalation apixaban 5 mg tablet (Eliquis) 5 mg PO BID 08/19/23 09/01/23 08/19/23 History potassium gluconate 595 mg (99 mg) 595 mg PO QPM 08/19/23 09/01/23 Unknown History tablet Super R-Lipoic Acid 1 cap PO QAM 09/01/23 09/01/23 Unknown History acetylcarnitine HCl 250 mg capsule 250 mg PO DAILY 09/01/23 09/01/23 Unknown History ascorbic acid (vitamin C) 500 mg 500 mg PO DAILY@12 09/01/23 09/01/23 Unknown History tablet (Vitamin C) ashwagandha root extract 500 mg 500 mg PO DAILY 09/01/23 09/01/23 Unknown History capsule calcium carb 333 mg-vit D3 133 1 tab PO BID 09/01/23 09/01/23 Unknown History unit-mag ox 133 mg-zinc oxide 5 mg tab (Romie Mag Zinc Plus D3) cholecalciferol (vitamin D3) 125 125 mcg PO QAM 09/01/23 09/01/23 Unknown History mcg (5,000 unit) tablet (Vitamin D3) coenzyme Q10 100 mg capsule 100 mg PO QAM 09/01/23 09/01/23 Unknown History (CoQ-10) cyanocobalamin (vitamin B-12) 1,000 mcg PO DAILY@12 09/01/23 09/01/23 Unknown History 1,000 mcg tablet (Vitamin B-12) gabapentin 300 mg capsule 300 mg PO TID 09/01/23 09/01/23 Unknown History montelukast 10 mg tablet 10 mg PO QPM 09/01/23 09/01/23 Unknown History omeprazole magnesium 20 mg 20 mg PO QAM 09/01/23 09/01/23 Unknown History tablet,delayed release (Prilosec OTC) prednisone 20 mg tablet 40 mg PO DAILY 09/01/23 09/01/23 08/31/23 History FINISHED 08/31/23 trazodone 50 mg tablet 50 mg PO BEDTIME 09/01/23 09/01/23 Unknown History Allergies Allergy/AdvReac Type Severity Reaction Status Date / Time Sulfa (Sulfonamide Allergy Unknown unknown Verified 08/23/23 10:20 Antibiotics) amlodipine Allergy Unknown Verified 08/31/23 16:10 amoxicillin Allergy ALGY-Rash Verified 08/23/23 10:20 Iodinated Contrast Media Allergy Unknown Verified 08/23/23 10:20 Current Medications Generic Name Dose Route Start Last Admin Trade Name Freq PRN Reason Stop Dose Admin Acetaminophen 650 mg 09/01/23 13:24 09/04/23 04:49 Acetaminophen 325 Mg Tablet PO 650 mg Q6H PRN Administration Mild/Mod Pain Or Temp >/= 101 Aspirin 81 mg 09/02/23 06:00 09/05/23 06:33 Aspirin 81 Mg Ec Tablet PO 81 mg QAM TERENCE Administration Bisacodyl 10 mg 09/05/23 13:05 09/05/23 14:53 Bisacodyl 10 Mg Supp MN 10 mg DAILY TERENCE Administration Gabapentin 300 mg 09/01/23 15:00 09/05/23 14:53 Gabapentin 300 Mg Capsule PO 300 mg TID TERENCE Administration Heparin Sodium (Porcine) 5,000 unit 09/01/23 13:30 09/05/23 14:52 Heparin 5,000 Unit/Ml Inj 1 Ml SUBCUT 5,000 unit Q12H TERENCE Administration Meropenem 2,000 mg/ Sodium 100 mls @ 200 mls/hr 09/01/23 19:00 09/05/23 15:10 Chloride IV 200 mls/hr Q8H TERENCE Administration Protocol Lactated Ringer's 1,000 mls @ 75 mls/hr 09/01/23 13:30 09/05/23 10:50 Lactated Ringers IV 75 mls/hr .[id number] TERENCE Administration Vancomycin/PEG/NADA/Lysine/Water 1,500 mg in 300 mls @ 200 mls/hr 09/04/23 14:00 09/05/23 11:48 Vancocin IV Infused Q18H TERENCE Infusion Pantoprazole Sodium 40 mg 09/02/23 06:00 09/05/23 06:[address] 40 Mg Tablet PO 40 mg QAM TERENCE Administration Polyethylene Glycol 17 gm 09/05/23 13:05 09/05/23 14:49 Polyethylene Glycol 3350 Pkt 17 Gm PO Not Given BID TERENCE Trazodone HCl 50 mg 09/01/23 21:00 09/04/23 20:19 Trazodone 50 Mg Tablet PO 50 mg BEDTIME TERENCE Administration PFSH Acute 2 PFSH: Medical History History of nonmelanoma skin cancer Pain in right lower leg Lower extremity edema Pacemaker Hypertension Surgical History Status post laparoscopic appendectomy S/P cardiac pacemaker procedure S/P knee surgery S/P vasectomy Family History Mother Myocardial infarction Social History Smoking and tobacco/nicotine status: former use of tobacco/nicotine Alcohol intake: never Substance/Drug Use: never Vitals/I&O/Wt Last Vital Signs Temp 97.6 F 09/05/23 12:00 Pulse 74 09/05/23 15:31 Resp 18 09/05/23 15:31 BP 126/61 09/05/23 12:00 Pulse Ox 95 09/05/23 15:31 O2 Del Method Room Air 09/05/23 15:31 FiO2 21 09/04/23 06:14 09/05/23 09/05/23 09/05/23 06:59 14:59 22:59 Intake Total 1633.75 / 3133.75 1686.25 / 1686.25 Output Total 1475 / 3775 Balance 158.75 / -641.25 1686.25 / 1686.25 Weight last 48 hrs Weight 204 lb 3.2 oz Weight 204 lb Physical Exam 2 GI: OTHER: Abdominal exam is benign, abdomen is soft nontender nondistended. Surgical incisions are well-healed. Digital rectal examination was done, soft stool was noted on the rectal wall, no need for disimpaction. Urinary Catheter Management: Vickers: Cath Placed During This Visit: yes Reason for Continuing Indwelling Catheter: Acute Urinary Retention or Obstruction Urinary Catheter Date of Insertion: 09/02/23 Urinary Catheter Time of Insertion: 19:00 Data 09/05/23 04:07 09/05/23 04:07 Micro: Microbiology 09/04/23 13:19 Blood Culture - Preliminary Blood NEGATIVE TO DATE 09/04/23 13:16 Blood Culture - Preliminary Blood NEGATIVE TO DATE 09/01/23 10:13 Blood Culture - Final Blood Enterococcus faecalis 09/01/23 10:14 Blood Culture - Final Blood Enterococcus faecalis 09/03/23 13:50 Gram Stain - Final Cerebrospinal Fluid CSF Culture - Preliminary A&P Assessment and plan (1) Bacteremia due to Enterococcus: (2) Sepsis: Plan After complete history, physical examination and review of all available clinical data the following is my assessment. Patient presented with E. coli bacteremia and altered mental status in the setting of recent history of gangrenous appendicitis and recent total aortic valve replacement. From the general surgery standpoint we were consulted as newly obtained CT scan of the abdomen and pelvis show evidence of mild duodenitis as well is mild terminal 80s with some small amount of free fluid around the terminal ileum, patient abdominal examination is completely benign. Intra-abdominal free fluid is likely reactive to small amount of inflammation at the level of the terminal ileum, no surgical intervention is recommended. Medical management with antibiotics should suffice for treatment of terminal ileitis. In addition to these there was concern for the possibility of fecal impaction, I did follow over digital rectal examination showed evidence only of soft stool at the level of the rectal vault indicating that no fecal impaction has occurred at this time. While it is very difficult to identify the source of his bacteremia, there is a small chance of a persistent bacterial translocation due to recent history of gangrenous appendicitis that progressed into bacteremia and sepsis. The main concern at this point is the presence of an aortic prosthesis that may be colonized due to bacteremia. Patient will require follow-up with cardiac surgery versus cardiology for this. There is no additional intervention I can offer from the general surgery standpoint at this point. I will continue to follow-up with the patient while inpatient to ensure adequate progression of the abdominal examination. Per family member report patient is having bowel movements and had 1 today, she recently received a suppository. He is unable to have additional bowel movements may consider an enema as this would likely remove the soft stool from the rectum. -No acute surgical intervention -No need for additional intervention for finding of ileitis minimal amount of free fluid in pelvis -Continue antibiotics as guided by primary team and infectious diseases team -Consider follow-up with cardiac surgery versus cardiology consultation for evaluation of the need of additional intervention due to possible graft colonization due to bacteremia. -All other management per primary team. Coding Level of Care Code Acute Code for [facility] Fwd Diagnoses Bacteremia due to Enterococcus R78.81; B95.2 Sepsis A41.9
[2023-09-05] MEDS: polyethylene glycol 3350 Pkt 17 gm PO (17:08)
--- NOTE | 2023-09-05 18:49 | PM.PN ---
Subjective Subjective: Overall he is feeling better, slightly more energetic today. Some improvement in appetite. Vitals/I&O/Wt Last Vital Signs Temp 97.7 F 09/05/23 18:09 Pulse 71 09/05/23 18:09 Resp 20 H 09/05/23 18:09 BP 139/71 09/05/23 18:09 Pulse Ox 95 09/05/23 18:09 O2 Del Method Room Air 09/05/23 18:09 FiO2 21 09/04/23 06:14 09/05/23 09/05/23 09/05/23 06:59 14:59 22:59 Intake Total 1633.75 / 3133.75 1686.25 / 1686.25 580 / 2266.25 Output Total 1475 / 3775 1200 / 1200 Balance 158.75 / -641.25 1686.25 / 1686.25 -620 / 1066.25 Weight last 48 hrs Weight 92.624 kg Weight 92.533 kg Physical Exam Narrative: Accompanied by his Const: COMMON NORMALS: patient oriented x3 and alert GENERAL APPEARANCE: cooperative and lethargic (Wakes up to) ORIENTATION/CONSCIOUSNESS: Yes lethargic (Wakes up to) HENMT: COMMON NORMALS: oropharynx normal Neck/C-Spine: COMMON NORMALS: no JVD Resp: COMMON NORMALS: normal respiratory effort and clear to auscultation bilaterally AUSCULTATION: clear to auscultation bilaterally Cardio: COMMON NORMALS: no JVD, regular rhythm, S1 normal heart sound present, S2 normal heart sound present and No murmurs present (Cardio) RHYTHM: regular rhythm HEART SOUNDS: S1 normal heart sound present and S2 normal heart sound present GI: COMMON NORMALS: Normal to inspection, nondistended, normoactive bowel sounds present, Soft to palpation and non-tender PALPATION: Yes Soft to palpation and Yes Tenderness to palpation present (GI) Extremity: COMMON NORMALS: no joint enlargement and no pedal edema Neuro: COMMON NORMALS: patient oriented x3 and moves all extremities SENSORIUM/ORIENTATION: Yes alert and Yes lethargic (Wakes up to) OTHER: No rigidity, but pain with tilting his head forward. Skin: COMMON NORMALS: no rashes or lesions noted GENERAL SKIN EXAM: no rashes or lesions noted Urinary Catheter Management: Vickers: Cath Placed During This Visit: yes Reason for Continuing Indwelling Catheter: Acute Urinary Retention or Obstruction Urinary Catheter Date of Insertion: 09/02/23 Urinary Catheter Time of Insertion: 19:00 Data 09/05/23 04:07 09/05/23 04:07 Micro: Microbiology 09/04/23 13:19 Blood Culture - Preliminary Blood NEGATIVE TO DATE 09/04/23 13:16 Blood Culture - Preliminary Blood NEGATIVE TO DATE 09/01/23 10:13 Blood Culture - Final Blood Enterococcus faecalis 09/01/23 10:14 Blood Culture - Final Blood Enterococcus faecalis 09/03/23 13:50 Gram Stain - Final Cerebrospinal Fluid CSF Culture - Preliminary A&P Assessment and plan (1) Bacteremia due to Enterococcus: Reviewed results of CT abdomen pelvis, discussed with him and his , discussed with surgeon, appreciate surgical consultation reviewed vitals, CBC, CMP, repeat blood culture. Repeat blood cultures so far without growth. If continues without growth consider placement of PICC line for continued antibiotic therapy. As per discussion with him, his and surgeon unclear significance of new fluid collections in presacral region in the right anterior pelvis on the contrast-enhanced CT after premedication. mild small bowel wall thickening involving portions of ileum as well as duodenum suggesting inflammation/enteritis. Moderate amount of stool in the colon with large amount of stool in the rectum worrisome for impending fecal impaction. Other incidental findings with enlarged prostate, some wall thickening of the bladder. Bilateral inguinal hernias, cortical renal scarring, probable cysts of both kidneys, no hydronephrosis. Small pleural effusion increasing in size. Stop IV fluid. Surgical consultation for additional consideration of significance of abdominal/pelvic fluid collections with enterococcal bacteremia. High-grade enterococcal bacteremia, 4/4 bottles positive. Possible endocarditis. With concomitant meningitis. Clear source of bacteremia, possibly secondary meningitis versus meningitis with concomitant bacteremia. Also has TAVR. Pending GABRIELA -discussed with force adjustment supervisor, likely Wednesday. Will make n.p.o. after midnight Continue empiric coverage with meropenem, vancomycin, monitor for risk of seizure with meropenem, risk of kidney injury with vancomycin. Follow-up repeat blood culture, if remains negative consider PICC line to continue IV antibiotic regimen outpatient. Consider referral for follow-up with ID clinic. (2) Acute encephalopathy: Appears mostly resolved. Reviewed CSF cultures so far without growth. 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 Additional assessment as above. Continue treatment with meropenem, Comycin as above. For now on isolation, pending CSF cultures. Follow-up. Unable to perform MRI due to pacemaker. Has a IV contrast allergy. CT of the head unremarkable but with moderate atrophy and volume loss and small vessel disease. (3) Sepsis: Sepsis resolved. Plan Atrial fibrillation: Eliquis has been on hold for lumbar puncture. prophylactic heparin for now. consider resumption of anticoagulation no further procedures anticipated. Status post TAVR Status post laparoscopic appendectomy in June Possible enteritis: With some wall thickening involving portions of the ileum as well as duodenum suggesting inflammation/enteritis. Bilateral cortical scarring incidentally noted on CT. Probable cysts of both kidneys. BPH: Incidentally noted on CT abdomen pelvis Inguinal hernias: Incidentally noted on CT abdomen pelvis Attestations Medical Necessity Statement*: Continue admission for assessment of management of high-grade enterococcal bacteremia, possible endocarditis with TAVR, meningitis, assessment of right lower quadrant pain with previously necrotizing appendicitis 2 months ago in a gentleman of advanced age. Diagnoses Bacteremia due to Enterococcus R78.81; B95.2 Acute encephalopathy G93.40 Sepsis A41.9
[2023-09-05] MEDS: trazodone 50 mg Tablet PO (21:32)
[2023-09-06] VITALS (17 sets, daily range): BP systolic 107–152; BP diastolic 58–75; PULSE 60–71; RESP 12–20; TEMP 35.9–36.6; O2SAT 92–100; BMI 28.8
[2023-09-06 01:21] LABS: Vancomycin Trough 13.9 ug/mL (10-15)
[2023-09-06] MEDS: vancomycin 1,500 MG/300 ML PIGGYBACK 200 MG IV ×2 (01:55→22:09)
[2023-09-06] MEDS: heparin 5,000 unit/mL INJ 1 mL 5000 UNIT SUBCUT (01:55)
[2023-09-06] MEDS: meropenem 2,000 MG in sodium chloride 0.9% (100 ml) 100 ML 200 MG IV (04:56)
--- NOTE | 2023-09-06 06:00 | USCV_ITS ---
Eddy Miner Age: 87 Gender: M : 06/13/1936 Exam Date: 09/06/2023 12:26 Ordering Phys: Tanna Guerin MD ([email or web address]) Technologist: Exam Location: [facility] – [place] Indication: ? veg BP: / HR: Rhythm: Sinus Technical Quality: Adequate MEASUREMENTS (Male / Female) Normal Values Medications IV propofol was administered as by the anesthesia service. Please refer to anesthesia note for details Complications None Proc. Components The GABRIELA probe was passed into the posterior pharynx , mid- esophagus, distal esophagus, and gastric fundus. GABRIELA was performed at multiple levels. FINDINGS Left Ventricle Right Ventricle Normal right ventricular size and systolic function. Right Atrium Pacemaker wire in the SVC and the right atrium with no masses or vegetations Left Atrium Moderately increased left atrial size. LA Appendage Of normal size with diminished contractility IA Septum Appears to be intact, based on the color for the proximal Mitral Valve Mild-moderate mitral valve regurgitation. Aortic Valve The bioprosthetic valve rhythm aortic position appears to be well-seated. No vegetations or masses were noted on the valves. Tricuspid Valve No gross abnormalities noted. Mild tricuspid regurgitation Pulmonic Valve No gross abnormalities noted . No mass or vegetations noted Pericardium No pericardial effusion. Aorta Intimal thickening and minimal plaques in the descending aorta CONCLUSIONS 1. No masses or vegetations on the valves including the bioprosthetic valve at the aortic position. 2. No intracardiac masses noted. 3. Moderate mitral regurgitation with mild tricuspid regurgitation. 4. Left atrial appendage is found to be of normal size with diminished contractility. 5. Intact atrial septum with no PFO or ASD by color-flow Doppler examination No similar previous studies are available for comparison Dr Tanna Guerin MD FAC (Electronically Signed) Final Date: 09 Sep 2023 16:52 S
[2023-09-06 06:19] LABS: Basophils % 0.1 %; Hematocrit 32.4 % (37-53); Lymphocytes # 8.6 10^3/uL (0.8-4.8); Lymphocytes % 35.9 %; Mean Corpuscular HGB Conc 34.3 g/dL (30-55); Mean Corpuscular Hemoglobin 33.5 pg (27-33); Mean Corpuscular Volume 97.9 fl (82-101); Mean Platelet Volume 9.8 fL (7.4-10.4); Monocytes % 4.2 %; Neutrophils # 14.17 10^3/uL (1.8-7.7); Nucleated Red Blood Cells % 0 %; Platelet Count 167 10^3/cmm (157-399); Red Blood Count 3.31 10^6/uL (3.85-5.65); Red Cell Distribution Width 13.7 % (12.1-15.1); White Blood Count 23.99 10^3/uL (3.29-11.43)
[2023-09-06 06:40] LABS: Alanine Aminotransferase 48 U/L (0-41); Albumin Level 2.7 g/dL (3.5-5.2); Alkaline Phosphatase 174 U/L (40-130); Anion Gap 12.5 (5-19); Aspartate Amino Transferase 39 U/L (0-40); Blood Urea Nitrogen 19 mg/dL (8-23); Carbon Dioxide 24 mmol/L (22-29); Chloride 105 mmol/L (98-107); Creatinine Clr Calc Pharmacy 75.9965; Glucose 120 mg/dL (65-115); Osmolality Calculated 289 mOsm/kg (285-295); Potassium 3.5 mmol/L (3.5-5.1); Sodium 138 mmol/L (136-145); Total Bilirubin 1.2 mg/dL (0.15-1.2); Total Protein 4.7 g/dL (6.6-8.7)
[2023-09-06 07:26] LABS: Slide Review Slide Review Perform
--- NOTE | 2023-09-06 12:04 | ANES.PREANE2 ---
Pre-Anesthetic Assessment Height/Weight: Height 1.8 m Weight 93.531 kg Temp Pulse Resp BP Pulse Ox O2 Del Method FiO2 97.7 F 63 18 107/58 92 Room Air 09/06/23 08:29 09/06/23 08:29 09/06/23 08:29 09/06/23 08:29 09/06/23 08:29 09/06/23 08:29 09/04/23 06:14 Operation Date: 09/06/23 12:30 Proposed Procedures p GABRIELA(Not Applicable) - Tanna Guerin MD Social Tobacco and No alcohol Airway Submandibular: within normal limits Cervical ROM: within normal limits Pulmonary Chronic Obstructive Pulmonary Disease, Cough, Exertional Dyspnea and Shortness of Breath CV/HEM Atrial Fibrillation (s/p pacemaker), Arrythmia, Coronary Artery Disease and Murmur s/p AVR GI Gastroesophageal Reflux Disease Anesthetic Plan ASA status: 4 Anesthesia: MAC Medications/Allergies Home Medications Medication Instructions Recorded Confirmed Last Taken Type dutasteride 0.5 mg capsule 0.5 mg PO QPM 07/10/20 09/01/23 08/18/23 History glucosamine-chondroitin 250 mg-200 1 tab PO BID 01/24/22 09/01/23 06/22/23 07:00 History mg tablet (Osteo Bi-Flex) multivitamin 1 tab PO QAM 01/24/22 09/01/23 08/19/23 History saw palmetto 160 mg capsule 160 mg PO TID 01/24/22 09/01/23 06/22/23 07:00 History turmeric 400 mg capsule 400 mg PO BID 01/24/22 09/01/23 06/22/23 07:00 History vitamin A 2,400 mcg capsule 2,400 mcg PO DAILY 01/24/22 09/01/23 06/21/23 17:00 History vitamin B complex 1 cap PO QAM 01/24/22 09/01/23 06/22/23 07:00 History aspirin 81 mg tablet,delayed 81 mg PO QAM 02/25/22 09/01/23 08/19/23 History release (Adult Low Dose Aspirin) fluticasone propionate 50 2 spray intranasal DAILY PRN 09/01/22 09/01/23 06/22/23 07:00 History mcg/actuation nasal allergies spray,suspension loratadine 10 mg tablet 10 mg PO DAILY PRN allergies 09/01/22 09/01/23 06/22/23 07:00 History Custom Molded Copolymer Orthotics #1 ea 12/28/22 09/01/23 Unknown Rx and Orthopedic Shoes albuterol sulfate 90 mcg/actuation 2 puff inhalation BID PRN 03/02/23 09/01/23 06/22/23 07:00 History aerosol inhaler (ProAir HFA) Shortness Of Breath clobetasol 0.05 % topical cream See Rx Instructions .Route .COMPLEX 06/23/23 09/01/23 Unknown History cyclobenzaprine 10 mg tablet 10 mg PO TID PRN Muscle Spasm 06/23/23 09/01/23 09/01/23 03:30 History diltiazem HCl 120 mg 120 mg PO QAM 06/23/23 09/01/23 06/22/23 07:00 History capsule,extended release 24 hr ferrous sulfate 325 mg (65 mg 325 mg PO DAILY@12 06/23/23 09/01/23 08/19/23 History iron) tablet (Iron (ferrous sulfate)) mometasone 200 mcg/actuation HFA 1 puff inhalation BID 06/23/23 09/01/23 08/31/23 History aerosol inhaler olodaterol 2.5 mcg/actuation mist 2 inh inhalation QAM 06/23/23 09/01/23 09/01/23 History for inhalation apixaban 5 mg tablet (Eliquis) 5 mg PO BID 08/19/23 09/01/23 08/19/23 History potassium gluconate 595 mg (99 mg) 595 mg PO QPM 08/19/23 09/01/23 Unknown History tablet Super R-Lipoic Acid 1 cap PO QAM 09/01/23 09/01/23 Unknown History acetylcarnitine HCl 250 mg capsule 250 mg PO DAILY 09/01/23 09/01/23 Unknown History ascorbic acid (vitamin C) 500 mg 500 mg PO DAILY@12 09/01/23 09/01/23 Unknown History tablet (Vitamin C) ashwagandha root extract 500 mg 500 mg PO DAILY 09/01/23 09/01/23 Unknown History capsule calcium carb 333 mg-vit D3 133 1 tab PO BID 09/01/23 09/01/23 Unknown History unit-mag ox 133 mg-zinc oxide 5 mg tab (Romie Mag Zinc Plus D3) cholecalciferol (vitamin D3) 125 125 mcg PO QAM 09/01/23 09/01/23 Unknown History mcg (5,000 unit) tablet (Vitamin D3) coenzyme Q10 100 mg capsule 100 mg PO QAM 09/01/23 09/01/23 Unknown History (CoQ-10) cyanocobalamin (vitamin B-12) 1,000 mcg PO DAILY@12 09/01/23 09/01/23 Unknown History 1,000 mcg tablet (Vitamin B-12) gabapentin 300 mg capsule 300 mg PO TID 09/01/23 09/01/23 Unknown History montelukast 10 mg tablet 10 mg PO QPM 09/01/23 09/01/23 Unknown History omeprazole magnesium 20 mg 20 mg PO QAM 09/01/23 09/01/23 Unknown History tablet,delayed release (Prilosec OTC) prednisone 20 mg tablet 40 mg PO DAILY 09/01/23 09/01/23 08/31/23 History FINISHED 08/31/23 trazodone 50 mg tablet 50 mg PO BEDTIME 09/01/23 09/01/23 Unknown History Allergies Allergy/AdvReac Type Severity Reaction Status Date / Time Sulfa (Sulfonamide Allergy Unknown unknown Verified 08/23/23 10:20 Antibiotics) amlodipine Allergy Unknown Verified 08/31/23 16:10 amoxicillin Allergy ALGY-Rash Verified 08/23/23 10:20 Iodinated Contrast Media Allergy Unknown Verified 08/23/23 10:20 Current Medications Generic Name Dose Route Start Last Admin Trade Name Freq PRN Reason Stop Dose Admin Acetaminophen 650 mg 09/01/23 13:24 09/04/23 04:49 Acetaminophen 325 Mg Tablet PO 650 mg Q6H PRN Administration Mild/Mod Pain Or Temp >/= 101 Aspirin 81 mg 09/02/23 06:00 09/06/23 04:51 Aspirin 81 Mg Ec Tablet PO Not Given QAM TERENCE Bisacodyl 10 mg 09/05/23 13:05 09/06/23 10:54 Bisacodyl 10 Mg Supp TX Not Given DAILY TERENCE Gabapentin 300 mg 09/01/23 15:00 09/06/23 10:54 Gabapentin 300 Mg Capsule PO Not Given TID TERENCE Lactated Ringer's 1,000 mls @ 75 mls/hr 09/01/23 13:30 09/05/23 10:50 Lactated Ringers IV 75 mls/hr .[id number] TERENCE Administration Vancomycin/PEG/NADA/Lysine/Water 1,500 mg in 300 mls @ 200 mls/hr 09/04/23 14:00 09/06/23 03:44 Vancocin IV Infused Q18H TERENCE Infusion Meropenem 2,000 mg/ Sodium 100 mls @ 200 mls/hr 09/05/23 21:45 09/06/23 05:45 Chloride IV Infused Q8H TERENCE Infusion Pantoprazole Sodium 40 mg 09/02/23 06:00 09/06/23 04:[address] 40 Mg Tablet PO Not Given QAM TERENCE Polyethylene Glycol 17 gm 09/05/23 13:05 09/06/23 10:54 Polyethylene Glycol 3350 Pkt 17 Gm PO Not Given BID TERENCE Trazodone HCl 50 mg 09/01/23 21:00 09/05/23 21:32 Trazodone 50 Mg Tablet PO 50 mg BEDTIME TERENCE Administration PFSH Anesthesia Medical History History of nonmelanoma skin cancer Pain in right lower leg Lower extremity edema Pacemaker Hypertension Surgical History Status post laparoscopic appendectomy S/P cardiac pacemaker procedure S/P knee surgery S/P vasectomy Family History Mother Myocardial infarction Social History Smoking and tobacco/nicotine status: former use of tobacco/nicotine Alcohol intake: never Substance/Drug Use: never Data Anesthesia 09/06/23 05:53 09/06/23 05:53 Short CBC 09/05/23 09/06/23 Range/Units 04:07 05:53 WBC 18.82 H 23.99 H (3.29-11.43) 10^3/uL Hgb 11.40 11.10 L (11.27-16.99) g/dL Hct 33.8 L 32.4 L (37-53) % MCV 98.8 97.9 (82-101) fl Plt Count 175 167 (157-399) 10^3/cmm Neut % (Auto) 66.9 59.0 % Neut # (Auto) 12.62 H 14.17 H (1.8-7.7) 10^3/uL BMP 09/05/23 09/06/23 04:07 05:53 Sodium 135 L 138 Potassium 3.6 3.5 Chloride 101 105 Carbon Dioxide 22 24 BUN 15 19 Creatinine 0.7 0.8 Glucose 143 H 120 H Calcium 7.8 L 8.0 L Liver Function 09/05/23 09/06/23 Range/Units 04:07 05:53 Total Bilirubin 2.2 H 1.2 (0.15-1.2) mg/dL AST 46 H 39 (0-40) U/L ALT 53 H 48 H (0-41) U/L Alkaline Phosphatase 209 H 174 H (40-130) U/L Albumin 2.8 L 2.7 L (3.5-5.2) g/dL Microbiology 09/03/23 13:50 Gram Stain - Final Cerebrospinal Fluid CSF Culture - Final 09/04/23 13:19 Blood Culture - Preliminary Blood NEGATIVE TO DATE 09/04/23 13:16 Blood Culture - Preliminary Blood NEGATIVE TO DATE 09/01/23 10:13 Blood Culture - Final Blood Enterococcus faecalis 09/01/23 10:14 Blood Culture - Final Blood Enterococcus faecalis Cardiac Studies: Echocardiogram 09/01/23 Sestamibi Stress Test (Cardiology) 01/14/23
--- NOTE | 2023-09-06 12:05 | ANES.PREANE2 ---
Pre-Anesthetic Assessment Height/Weight: Height 1.8 m Weight 93.531 kg Temp Pulse Resp BP Pulse Ox O2 Del Method FiO2 97.7 F 63 18 107/58 92 Room Air 09/06/23 08:29 09/06/23 08:29 09/06/23 08:29 09/06/23 08:29 09/06/23 08:29 09/06/23 08:29 09/04/23 06:14 Operation Date: 09/06/23 12:30 Proposed Procedures p GABRIELA(Not Applicable) - Tanna Guerin MD Familial anesthetic complications: none Social No alcohol and No tobacco (quit 1947) Exam alert, oriented x 3, clear to auscultation bilaterally and regular rate & rhythm Airway Submandibular: within normal limits Cervical ROM: within normal limits Mallampati: Class II Dentition: false Pulmonary Chronic Obstructive Pulmonary Disease Medications/Allergies Home Medications Medication Instructions Recorded Confirmed Last Taken Type dutasteride 0.5 mg capsule 0.5 mg PO QPM 07/10/20 09/01/23 08/18/23 History glucosamine-chondroitin 250 mg-200 1 tab PO BID 01/24/22 09/01/23 06/22/23 07:00 History mg tablet (Osteo Bi-Flex) multivitamin 1 tab PO QAM 01/24/22 09/01/23 08/19/23 History saw palmetto 160 mg capsule 160 mg PO TID 01/24/22 09/01/23 06/22/23 07:00 History turmeric 400 mg capsule 400 mg PO BID 01/24/22 09/01/23 06/22/23 07:00 History vitamin A 2,400 mcg capsule 2,400 mcg PO DAILY 01/24/22 09/01/23 06/21/23 17:00 History vitamin B complex 1 cap PO QAM 01/24/22 09/01/23 06/22/23 07:00 History aspirin 81 mg tablet,delayed 81 mg PO QAM 02/25/22 09/01/23 08/19/23 History release (Adult Low Dose Aspirin) fluticasone propionate 50 2 spray intranasal DAILY PRN 09/01/22 09/01/23 06/22/23 07:00 History mcg/actuation nasal allergies spray,suspension loratadine 10 mg tablet 10 mg PO DAILY PRN allergies 09/01/22 09/01/23 06/22/23 07:00 History Custom Molded Copolymer Orthotics #1 ea 12/28/22 09/01/23 Unknown Rx and Orthopedic Shoes albuterol sulfate 90 mcg/actuation 2 puff inhalation BID PRN 03/02/23 09/01/23 06/22/23 07:00 History aerosol inhaler (ProAir HFA) Shortness Of Breath clobetasol 0.05 % topical cream See Rx Instructions .Route .COMPLEX 06/23/23 09/01/23 Unknown History cyclobenzaprine 10 mg tablet 10 mg PO TID PRN Muscle Spasm 06/23/23 09/01/23 09/01/23 03:30 History diltiazem HCl 120 mg 120 mg PO QAM 06/23/23 09/01/23 06/22/23 07:00 History capsule,extended release 24 hr ferrous sulfate 325 mg (65 mg 325 mg PO DAILY@12 06/23/23 09/01/23 08/19/23 History iron) tablet (Iron (ferrous sulfate)) mometasone 200 mcg/actuation HFA 1 puff inhalation BID 06/23/23 09/01/23 08/31/23 History aerosol inhaler olodaterol 2.5 mcg/actuation mist 2 inh inhalation QAM 06/23/23 09/01/23 09/01/23 History for inhalation apixaban 5 mg tablet (Eliquis) 5 mg PO BID 08/19/23 09/01/23 08/19/23 History potassium gluconate 595 mg (99 mg) 595 mg PO QPM 08/19/23 09/01/23 Unknown History tablet Super R-Lipoic Acid 1 cap PO QAM 09/01/23 09/01/23 Unknown History acetylcarnitine HCl 250 mg capsule 250 mg PO DAILY 09/01/23 09/01/23 Unknown History ascorbic acid (vitamin C) 500 mg 500 mg PO DAILY@12 09/01/23 09/01/23 Unknown History tablet (Vitamin C) ashwagandha root extract 500 mg 500 mg PO DAILY 09/01/23 09/01/23 Unknown History capsule calcium carb 333 mg-vit D3 133 1 tab PO BID 09/01/23 09/01/23 Unknown History unit-mag ox 133 mg-zinc oxide 5 mg tab (Romie Mag Zinc Plus D3) cholecalciferol (vitamin D3) 125 125 mcg PO QAM 09/01/23 09/01/23 Unknown History mcg (5,000 unit) tablet (Vitamin D3) coenzyme Q10 100 mg capsule 100 mg PO QAM 09/01/23 09/01/23 Unknown History (CoQ-10) cyanocobalamin (vitamin B-12) 1,000 mcg PO DAILY@12 09/01/23 09/01/23 Unknown History 1,000 mcg tablet (Vitamin B-12) gabapentin 300 mg capsule 300 mg PO TID 09/01/23 09/01/23 Unknown History montelukast 10 mg tablet 10 mg PO QPM 09/01/23 09/01/23 Unknown History omeprazole magnesium 20 mg 20 mg PO QAM 09/01/23 09/01/23 Unknown History tablet,delayed release (Prilosec OTC) prednisone 20 mg tablet 40 mg PO DAILY 09/01/23 09/01/23 08/31/23 History FINISHED 08/31/23 trazodone 50 mg tablet 50 mg PO BEDTIME 09/01/23 09/01/23 Unknown History Allergies Allergy/AdvReac Type Severity Reaction Status Date / Time Sulfa (Sulfonamide Allergy Unknown unknown Verified 08/23/23 10:20 Antibiotics) amlodipine Allergy Unknown Verified 08/31/23 16:10 amoxicillin Allergy ALGY-Rash Verified 08/23/23 10:20 Iodinated Contrast Media Allergy Unknown Verified 08/23/23 10:20 Current Medications Generic Name Dose Route Start Last Admin Trade Name Freq PRN Reason Stop Dose Admin Acetaminophen 650 mg 09/01/23 13:24 09/04/23 04:49 Acetaminophen 325 Mg Tablet PO 650 mg Q6H PRN Administration Mild/Mod Pain Or Temp >/= 101 Aspirin 81 mg 09/02/23 06:00 09/06/23 04:51 Aspirin 81 Mg Ec Tablet PO Not Given QAM TERENCE Bisacodyl 10 mg 09/05/23 13:05 09/06/23 10:54 Bisacodyl 10 Mg Supp [place] Not Given DAILY TERENCE Gabapentin 300 mg 09/01/23 15:00 09/06/23 10:54 Gabapentin 300 Mg Capsule PO Not Given TID TERENCE Lactated Ringer's 1,000 mls @ 75 mls/hr 09/01/23 13:30 09/05/23 10:50 Lactated Ringers IV 75 mls/hr .[id number] TERENCE Administration Vancomycin/PEG/NADA/Lysine/Water 1,500 mg in 300 mls @ 200 mls/hr 09/04/23 14:00 09/06/23 03:44 Vancocin IV Infused Q18H TERENCE Infusion Meropenem 2,000 mg/ Sodium 100 mls @ 200 mls/hr 09/05/23 21:45 09/06/23 05:45 Chloride IV Infused Q8H TERENCE Infusion Pantoprazole Sodium 40 mg 09/02/23 06:00 09/06/23 04:[address] 40 Mg Tablet PO Not Given QAM TERENCE Polyethylene Glycol 17 gm 09/05/23 13:05 09/06/23 10:54 Polyethylene Glycol 3350 Pkt 17 Gm PO Not Given BID TERENCE Trazodone HCl 50 mg 09/01/23 21:00 09/05/23 21:32 Trazodone 50 Mg Tablet PO 50 mg BEDTIME TERENCE Administration PFSH Anesthesia Medical History History of nonmelanoma skin cancer Pain in right lower leg Lower extremity edema Pacemaker Hypertension Surgical History Status post laparoscopic appendectomy S/P cardiac pacemaker procedure S/P knee surgery S/P vasectomy Family History Mother Myocardial infarction Social History Smoking and tobacco/nicotine status: former use of tobacco/nicotine Alcohol intake: never Substance/Drug Use: never Data Anesthesia 09/06/23 05:53 09/06/23 05:53 Short CBC 09/05/23 09/06/23 Range/Units 04:07 05:53 WBC 18.82 H 23.99 H (3.29-11.43) 10^3/uL Hgb 11.40 11.10 L (11.27-16.99) g/dL Hct 33.8 L 32.4 L (37-53) % MCV 98.8 97.9 (82-101) fl Plt Count 175 167 (157-399) 10^3/cmm Neut % (Auto) 66.9 59.0 % Neut # (Auto) 12.62 H 14.17 H (1.8-7.7) 10^3/uL BMP 09/05/23 09/06/23 04:07 05:53 Sodium 135 L 138 Potassium 3.6 3.5 Chloride 101 105 Carbon Dioxide 22 24 BUN 15 19 Creatinine 0.7 0.8 Glucose 143 H 120 H Calcium 7.8 L 8.0 L Liver Function 09/05/23 09/06/23 Range/Units 04:07 05:53 Total Bilirubin 2.2 H 1.2 (0.15-1.2) mg/dL AST 46 H 39 (0-40) U/L ALT 53 H 48 H (0-41) U/L Alkaline Phosphatase 209 H 174 H (40-130) U/L Albumin 2.8 L 2.7 L (3.5-5.2) g/dL Microbiology 09/03/23 13:50 Gram Stain - Final Cerebrospinal Fluid CSF Culture - Final 09/04/23 13:19 Blood Culture - Preliminary Blood NEGATIVE TO DATE 09/04/23 13:16 Blood Culture - Preliminary Blood NEGATIVE TO DATE 09/01/23 10:13 Blood Culture - Final Blood Enterococcus faecalis 09/01/23 10:14 Blood Culture - Final Blood Enterococcus faecalis Cardiac Studies: Echocardiogram 09/01/23 Sestamibi Stress Test (Cardiology) 01/14/23
--- NOTE | 2023-09-06 12:16 | W.PM.OPSUD ---
Surgery/Procedure H&P Update DATE OF PROCEDURE: September 06, 2023 DATE H&P PERFORMED: 09/04/23 H&P UPDATE INFORMATION: I have reviewed H&P completed within last 30 days, I have examined patient prior to procedure and No changes to prior documentation PREOP DIAGNOSIS: Gram-positive bacteremia PRIMARY INDICATION FOR PROCEDURE: Rule out endocarditis PLANNED PROCEDURE: Operation Date: 09/06/23 12:30 Proposed Procedures p GABRIELA(Not Applicable) - Tanna Guerin MD
[2023-09-06] MEDS: sodium chloride 0.9% 1,000 ML 30 ML IV (12:21)
[2023-09-06 13:17] LABS: Procalcitonin 0.08 ng/mL (0-0.5); Thyroid Stimulating Hormone 1.32 uIU/mL (0.27-4.20)
[2023-09-06 13:30] LABS: Iron 34 ug/dL (59-158); Percent Saturation 22.8 % (20-50); Total Iron Binding Capacity 149 mcg/dl; Unsaturated Iron Binding 115 ug/dL (112-347)
--- NOTE | 2023-09-06 13:48 | ANE.PACU2 ---
Inpatient post-anesthesia follow up: Vital signs: Temperature 97.3 F Pulse Rate 65 Respiratory Rate 18 Blood Pressure 125/68 Pulse Oximetry 99 Oxygen Delivery Me thod Room Air Oxygen Flow Rate 3 Fraction of Inspir ed Oxygen 21 Hydration adequate: Yes Nausea and vomiting: No Pain level: 1 Mental status: Baseline
[2023-09-06 13:54] LABS: Vitamin B12 > 2000 pg/mL (232-1245)
[2023-09-06] MEDS: gabapentin 300 mg Capsule PO ×2 (15:21→22:10)
[2023-09-06] MEDS: ferrous sulfate EC 325 mg Tablet PO (15:21)
[2023-09-06] MEDS: cyanocobalamin 1,000 mcg Tablet 1000 MCG PO (15:21)
[2023-09-06] MEDS: lactated ringers 1,000 ML 75 ML IV (15:22)
[2023-09-06] MEDS: ampicillin 2,000 MG in sodium chloride 0.9% (plus) 50 ML 100 MG IV ×2 (15:22→17:36)
--- NOTE | 2023-09-06 15:33 | P.PN_ITS ---
Subjective 2 Subjective: Hospital course, labs appreciated. Today morning seen post TTE. at bedside. Patient denies any nausea, vomiting, headache. Has remained afebrile. Appreciate blood work and hemodynamics. Vitals/I&O/Wt Last Vital Signs Temp 97.3 F L 09/06/23 13:10 Pulse 65 09/06/23 13:10 Resp 18 09/06/23 13:10 BP 125/68 09/06/23 13:10 Pulse Ox 99 09/06/23 13:10 O2 Del Method Room Air 09/06/23 13:10 O2 Flow Rate 3 09/06/23 12:46 FiO2 21 09/04/23 06:14 09/06/23 09/06/23 09/06/23 06:59 14:59 22:59 Intake Total 1400 / 3766.25 300 / 300 Output Total 1125 / 2525 Balance 275 / 1241.25 300 / 300 Weight last 48 hrs Weight 93.531 kg Weight 92.624 kg Physical Exam 2 Narrative: Accompanied by his Const: COMMON NORMALS: patient oriented x3 and alert GENERAL APPEARANCE: c ooperative and lethargic (Wakes up to) ORIENTATION/CONSCIOUSNESS: Yes lethargic (Wakes up to) HENMT: COMMON NORMALS: oropharynx normal Neck/C-Spine: COMMON NORMALS: no JVD Resp: COMMON NORMALS: normal respiratory effort and clear to auscultation bilaterally AUSCULTATION: clear to auscultation bilaterally Cardio: COMMON NORMALS: no JVD, regular rhythm, S1 normal heart sound present, S2 normal heart sound present and No murmurs present (Cardio) RHYTHM: regular rhythm HEART SOUNDS: S1 normal heart sound present and S2 normal heart sound present GI: COMMON NORMALS: Normal to inspection, nondistended, normoactive bowel sounds present, Soft to palpation and non-tender PALPATION: Yes Soft to palpation and Yes Tenderness to palpation present (GI) Extremity: COMMON NORMALS: no joint enlargement and no pedal edema Neuro: COMMON NORMALS: patient oriented x3 and moves all extremities S ENSORIUM/ORIENTATION: Yes alert and Yes lethargic (Wakes up to) OTHER: No rigidity, but pain with tilting his head forward. Skin: COMMON NORMALS: no rashes or lesions noted GENERAL SKIN EXAM: no rashes or lesions noted Urinary Catheter Management: Vickers: Cath Placed During This Visit: yes Reason for Continuing Indwelling Catheter: Other Urinary Catheter Date of Insertion: 09/02/23 Urinary Catheter Time of Insertion: 19:00 Data 09/06/23 05:53 09/06/23 05:53 Micro: Microbiology 09/03/23 13:50 Gram Stain - Final Cerebrospinal Fluid CSF Culture - Final 09/04/23 13:19 Blood Culture - Preliminary Blood NEGATIVE TO DATE 09/04/23 13:16 Blood Culture - Preliminary Blood NEGATIVE TO DATE 09/01/23 10:13 Blood Culture - Final Blood Enterococcus faecalis 09/01/23 10:14 Blood Culture - Final Blood Enterococcus faecalis A&P Assessment and plan (1) Bacteremia due to Enterococcus: Unclear source. Does have recent history of necrotizing appendicitis followed by TAVR. Repeat blood cultures from 09/03 so far negative. Appreciate sensitivities. Patient continues to have worsening of leukocytosis. Has remained afebrile though. Patient gives history of allergies to penicillin with rash. Note complaints or history of anaphylaxis or difficulty in breathing. He is agreeable to try ampicillin. Continue with IV vancomycin. Monitor troughs. Switch from meropenem to IV ampicillin 2 g every 4 hours. Monitor renal functions. Appreciate GABRIELA results. Plan for repeat TTE today to rule out infective endocarditis. Patient has history of TAVR and pacemaker implantation. Patient is at high risk for endocarditis as per modified Cornell criteria with 1 major (blood culture positive with Enterococcus )and 2 minor criteria (predisposing heart condition including heart valve and pacemaker along with fever of more than 100 Fahrenheit on admission). Patient does have fluid collection at presacral area. Also concerns for enteritis on CT abdomen pelvis. Appreciate surgical recommendations. Patient will need overall at least 4 to 6 weeks of IV antibiotics from 4 set up negative blood cultures. Plan for PICC line placement once repeat blood cultures from 09/03 remain negative for next 24 hours. Worsening leukocytosis is seen. Unclear reason for now. Did complain of diarrhea overnight. Rule out C. difficile. Appreciate CSF studies which ruled out meningitis. CSF cultures negative. Patient does have abdominal collection as seen on CT abdomen/pelvis. Will discuss with surgery again for possible need of I&D versus washout. Antibiotic changes as above. (2) Acute encephalopathy: Most likely resolved. Mostly in setting of sepsis or infection on admission. CSF on admission appreciated. No concerns for meningitis. Unable to perform MRI due to pacemaker. Has a IV contrast allergy. CT of the head unremarkable but with moderate atrophy and volume loss and small vessel disease. (3) Sepsis: Sepsis resolved. Plan Atrial fibrillation: Rate controlled. It seems patient takes Cardizem 120 mg oral daily at home. Currently rate controlled in 60s without any Cardizem. Will continue to monitor on telemetry. Restart Eliquis. Lumbar puncture has been done. Stop heparin. Status post TAVR Status post laparoscopic appendectomy in June BPH: Restart home dose of dutasteride. Incidentally noted on CT abdomen pelvis CODE STATUS: Limited resuscitation. Again discussed in detail with patient and at bedside. Start on cardiac diet Eliquis will be sufficient for DVT prophylaxis Protonix for PUD prophylaxis Physical deconditioning: Worsening over last few weeks as per the . Patient was not even able to go to bathroom from bed recently with few episodes of dragging himself on the knees. Physical therapy. Attestations 2 Medical Necessity Statement*: Requires further hospitalization for management of bacteremia secondary to Enterococcus while endocarditis is ruled out, worsening leukocytosis, physical deconditioning while safe discharge planning and outside antibiotics are set up. Diagnoses Bacteremia due to Enterococcus R78.81; B95.2 Acute encephalopathy G93.40 Sepsis A41.9
[2023-09-06] MEDS: dutasteride 0.5 mg Capsule PO (17:36)
[2023-09-06] MEDS: apixaban 5 mg Tablet PO (17:36)
[2023-09-06] MEDS: polyethylene glycol 3350 Pkt 17 gm PO (17:40)
[2023-09-06] MEDS: trazodone 50 mg Tablet PO (22:10)
--- NOTE | 2023-09-06 22:19 | PM.PN ---
Subjective Medications: Medication Review Details: Current Medications Acetaminophen (Acetaminophen 325 Mg Tablet) 650 mg PO Q6H PRN PRN Reason: Mild/Mod Pain Or Temp >/= 101 Last Admin: 09/04/23 04:49 Dose: 650 mg Albuterol Sulfate (Albuterol 2.5 Mg/3 Ml Neb) 2.5 mg INHALATION Q6H.RESP PRN PRN Reason: SHORTNESS OF BREATH Apixaban (Apixaban 5 Mg Tablet) 5 mg PO BID [facility] Last Admin: 09/06/23 17:36 Dose: 5 mg Aspirin (Aspirin 81 Mg Ec Tablet) 81 mg PO QAM [facility] Last Admin: 09/06/23 04:51 Dose: Not Given Bisacodyl (Bisacodyl 10 Mg Supp) 10 mg MN DAILY [facility] Last Admin: 09/06/23 10:54 Dose: Not Given Cyanocobalamin (Cyanocobalamin 1,000 Mcg Tablet) 1,000 mcg PO DAILY@12 [facility] Last Admin: 09/06/23 15:21 Dose: 1,000 mcg Dutasteride (Dutasteride 0.5 Mg Capsule) 0.5 mg PO QPM [facility] Last Admin: 09/06/23 17:36 Dose: 0.5 mg Ferrous Sulfate (Ferrous Sulfate Ec 325 Mg Tablet) 325 mg PO DAILY@12 [facility] Last Admin: 09/06/23 15:21 Dose: 325 mg Gabapentin (Gabapentin 300 Mg Capsule) 300 mg PO TID [facility] Last Admin: 09/06/23 22:10 Dose: 300 mg Lactated Ringer's (Lactated Ringers) 1,000 mls @ 75 mls/hr IV .[id number] [facility] Last Admin: 09/06/23 15:22 Dose: 75 mls/hr Vancomycin/PEG/NADA/Lysine/Water (Vancocin) 1,500 mg in 300 mls @ 200 mls/hr IV Q18H [facility] Last Admin: 09/06/23 22:09 Dose: 200 mls/hr Ampicillin Sodium 2,000 mg/ (Sodium Chloride) 50 mls @ 100 mls/hr IV Q4H [facility]; Protocol Last Infusion: 09/06/23 18:21 Dose: Infused Ondansetron HCl (Ondansetron 2 Mg/Ml Sdv 2 Ml) 4 mg IVP Q8H PRN PRN Reason: vomiting, or N/V if npo Pantoprazole Sodium (Pantoprazole Dr 40 Mg Tablet) 40 mg PO QAM [facility] Last Admin: 09/06/23 04:51 Dose: Not Given Polyethylene Glycol (Polyethylene Glycol 3350 Pkt 17 Gm) 17 gm PO BID [facility] Last Admin: 09/06/23 17:40 Dose: 17 gm Trazodone HCl (Trazodone 50 Mg Tablet) 50 mg PO BEDTIME [facility] Last Admin: 09/06/23 22:10 Dose: 50 mg Vitals/I&O/Wt Last Vital Signs Temp 97.6 F 09/06/23 20:03 Pulse 66 09/06/23 20:03 Resp 18 09/06/23 20:03 BP 130/66 09/06/23 20:03 Pulse Ox 98 09/06/23 20:03 O2 Del Method Room Air 09/06/23 20:03 O2 Flow Rate 3 09/06/23 12:46 FiO2 21 09/04/23 06:14 09/06/23 09/06/23 09/06/23 06:59 14:59 22:59 Intake Total 1400 / 3766.25 300 / 300 1060 / 1360 Output Total 1125 / 2525 Balance 275 / 1241.25 300 / 300 1060 / 1360 Weight last 48 hrs Weight 206 lb 3.2 oz Weight 204 lb 3.2 oz Physical Exam Narrative: GENERAL: The patient is alert and oriented times three. Not in any acute distress. But appears very tired HEENT: Minimal pallor. No icterus or lymphadenopathy.Oral cavity: There are no mucous membrane lesions. NECK: Trachea appears to be central. No masses noted. No JVD or thyromegaly appreciated. RESPIRATORY: Chest is symmetrical. No intercostals muscle retraction or any accessory muscle activation. There is no chest wall tenderness. Breath sounds are heard bilaterally. No rales or rhonchi heard. No evidence of any consolidation. BREASTS: Deferred. HEART: The heart sounds are normal. No S3 or S4. Short systolic murmur in the lower sternal border. No diastolic murmurs. No pericardial rub ABDOMEN: No vessel pulsations or distention. No tenderness. No organomegaly appreciated. Bowel sounds are normally heard. : Deferred. RECTAL: Deferred. LYMPHATIC: No lymphadenopathy noted in the neck. EXTREMITIES: No edema or cyanosis. No clubbing. MUSCULOSKELETAL: No acute joint deformities or swelling SKIN: There are no significant rashes or ecchymosis NEUROPSYCHIATRIC: The patient is alert and oriented x3. Appears to be in a good mood. No tremors or rigidity noted. Urinary Catheter Management: Vickers: Cath Placed During This Visit: yes Reason for Continuing Indwelling Catheter: Other Urinary Catheter Date of Insertion: 09/02/23 Urinary Catheter Time of Insertion: 19:00 Data 09/06/23 05:53 09/06/23 05:53 Other Labs: Laboratory Last Values WBC 23.99 10^3/uL (3.29-11.43) H 09/06/23 05:53 RBC 3.31 10^6/uL (3.85-5.65) L 09/06/23 05:53 Hgb 11.10 g/dL (11.27-16.99) L 09/06/23 05:53 Hct 32.4 % (37-53) L 09/06/23 05:53 MCV 97.9 fl (82-101) 09/06/23 05:53 MCH 33.5 pg (27-33) H 09/06/23 05:53 MCHC 34.3 g/dL (30-55) 09/06/23 05:53 RDW 13.7 % (12.1-15.1) 09/06/23 05:53 Plt Count 167 10^3/cmm (157-399) 09/06/23 05:53 MPV 9.8 fL (7.4-10.4) 09/06/23 05:53 Neut % (Auto) 59.0 % 09/06/23 05:53 Lymph % (Auto) 35.9 % 09/06/23 05:53 [place] % (Auto) 4.2 % 09/06/23 05:53 Eos % (Auto) 0.0 % 09/06/23 05:53 Baso % (Auto) 0.1 % 09/06/23 05:53 Neut # (Auto) 14.17 10^3/uL (1.8-7.7) H 09/06/23 05:53 Lymph # (Auto) 8.6 10^3/uL (0.8-4.8) H 09/06/23 05:53 [place] # (Auto) 1.0 10^3/uL (0.2-0.9) H 09/06/23 05:53 Eos # (Auto) 0.0 10^3/uL (0.0-0.8) 09/06/23 05:53 Baso # (Auto) 0.0 10^3/uL (0.0-0.1) 09/06/23 05:53 Nucleated RBC % (auto) 0 % 09/06/23 05:53 Nucleated RBCs # 0.0 /100WBC 09/06/23 05:53 PT 21.80 SECONDS (12.1-14.9) H 09/01/23 07:45 INR 1.83 (0.8-1.2) H 09/01/23 07:45 Specimen Type Arterial 09/01/23 08:50 Sample Site Radial, right 09/01/23 08:50 ABG pH 7.55 (7.35-7.45) H 09/01/23 08:50 ABG pCO2 27.9 mmHg (35-45) L 09/01/23 08:50 ABG pO2 70.2 mmHg (80.0-100.0) L 09/01/23 08:50 ABG PO2/FiO2 Ratio 0 09/01/23 08:50 ABG HCO3 24.1 mmol/L (22-26) 09/01/23 08:50 ABG O2 Saturation 95.9 09/01/23 08:50 ABG Base Excess 2.5 mmol/L (-2.0-2.0) H 09/01/23 08:50 Benjamin Test Pos 09/01/23 08:50 A-a O2 Gradient 5.8 mmHg (5-10) 09/01/23 08:50 Hematocrit 38.9 % (42-52) L 09/01/23 08:50 Hgb O2 Saturation 94.5 % (95-100) L 09/01/23 08:50 Carboxyhemoglobin 1.3 %THgb (0.4-20.1) 09/01/23 08:50 Methemoglobin 0.1 % (0.4-1.5) L 09/01/23 08:50 Total Hemoglobin 12.7 g/dL (14-18) L 09/01/23 08:50 Sodium 132.0 mmol/L (131-143) 09/01/23 08:50 Potassium 3.9 mmol/L (3.5-5.0) 09/01/23 08:50 Glucose 109.0 mg/dL (70-115) 09/01/23 08:50 Ionized Calcium 1.2 mmol/L (1.1-1.4) 09/01/23 08:50 O2 Delivery Device Room air 09/01/23 08:50 FiO2 21.0 % 09/01/23 08:50 Buffet Attendant ID [email or web address] 09/01/23 08:50 Sodium 138 mmol/L (136-145) 09/06/23 05:53 Potassium 3.5 mmol/L (3.5-5.1) 09/06/23 05:53 Chloride 105 mmol/L (98-107) 09/06/23 05:53 Carbon Dioxide 24 mmol/L (22-29) 09/06/23 05:53 Anion Gap 12.5 (5-19) 09/06/23 05:53 BUN 19 mg/dL (8-23) 09/06/23 05:53 Creatinine 0.8 mg/dL (0.7-1.2) 09/06/23 05:53 GFR Calculation Not Reportable 09/06/23 05:53 Glucose 120 mg/dL (65-115) H 09/06/23 05:53 Calculated Osmolality 289 mOsm/kg (285-295) 09/06/23 05:53 Lactic Acid 4.7 mmol/L (0.5-2.2) H* 09/01/23 07:45 Lactic Acid (Sepsis) 1.4 mmol/L (0.5-2.2) 09/01/23 10:13 Calcium 8.0 mg/dL (8.5-10.5) L 09/06/23 05:53 Magnesium 2.1 mg/dL (1.7-2.3) 09/01/23 07:45 Iron 34 ug/dL (59-158) L 09/06/23 05:53 TIBC 149 mcg/dl 09/06/23 05:53 % Saturation 22.8 % (20-50) 09/06/23 05:53 Unsat Iron Binding 115 ug/dL (112-347) 09/06/23 05:53 Total Bilirubin 1.2 mg/dL (0.15-1.2) 09/06/23 05:53 AST 39 U/L (0-40) 09/06/23 05:53 ALT 48 U/L (0-41) H 09/06/23 05:53 Alkaline Phosphatase 174 U/L (40-130) H 09/06/23 05:53 Troponin T Baseline 46 ng/L (0-15) H 09/01/23 07:45 Troponin T 120 Minute 50.18 ng/L (0-15) H 09/01/23 10:13 Delta Troponin T 4.18 ABS# (0-10) 09/01/23 10:13 Troponin T Hi Sens 6Hr 54.36 ng/L (0-15) H 09/01/23 13:55 Troponin T Hi Sens 6Hr Delta 8.36 ng/L (0-12) 09/01/23 13:55 Total Protein 4.7 g/dL (6.6-8.7) L 09/06/23 05:53 Albumin 2.7 g/dL (3.5-5.2) L 09/06/23 05:53 Globulin 2.0 g/dL (1.3-4.6) 09/06/23 05:53 Lipase 21 U/L (13-60) 09/01/23 07:45 Vitamin B12 > 2000 pg/mL (232-1245) H 09/06/23 05:53 Procalcitonin 0.08 ng/mL (0-0.5) 09/06/23 05:53 TSH 1.32 uIU/mL (0.27-4.20) 09/06/23 05:53 Urine Color Yellow (Yellow) 09/01/23 09:36 Urine Appearance Clear (CLEAR) 09/01/23 09:36 Urine pH 8 (5-7) H 09/01/23 09:36 Ur Specific [place] 1.015 (1.005-1.030) 09/01/23 09:36 Urine Protein Neg (Negative) 09/01/23 09:36 Urine Glucose (UA) Norm (Normal) 09/01/23 09:36 Urine Ketones Negative (Negative) 09/01/23 09:36 Urine Blood Neg (Negative) 09/01/23 09:36 Urine Nitrate Negative (Negative) 09/01/23 09:36 Urine Bilirubin Neg (Negative) 09/01/23 09:36 Urine Urobilinogen Norm mg/dL (Negative) 09/01/23 09:36 Ur Leukocyte Esterase Negative (Negative) 09/01/23 09:36 CSF Appearance Hazy (CLEAR) 09/03/23 13:50 CSF Color Colorless (COLORLESS) 09/03/23 13:50 CSF WBC 78 /uL (0-5) H 09/03/23 13:50 CSF RBC 0 10^3/uL (0-0) 09/03/23 13:50 CSF Mononuclear # Auto 0.041 10^3/uL (50-90) L 09/03/23 13:50 CSF Mononuclear WBCs % 53 % (50-90) 09/03/23 13:50 CSF Polynuclear WBCs # 0.037 10^3/uL (0-10) 09/03/23 13:50 CSF Polynuclear WBCs % 47 % (0-10) H 09/03/23 13:50 CSF Diff Comment Yes 09/03/23 13:50 CSF Glucose 35 mg/dL (40-70) L 09/03/23 13:50 CSF Total Protein 69 mg/dL (15-45) H 09/03/23 13:50 Vancomycin Trough 13.9 ug/mL (10-15) 09/06/23 00:53 Adenovirus (PCR) Not detected (NOT DETECT) 09/01/23 16:14 C. pneumoniae DNA (PCR) Not detected (NOT DETECT) 09/01/23 16:14 Coronavirus 229E (PCR) Not detected (NOT DETECT) 09/01/23 16:14 Human Metapneumovir PCR Not detected (NOT DETECT) 09/01/23 16:14 Influenza A (H1) PCR Not detected (NOT DETECT) 09/01/23 16:14 Influ A (H1/09) PCR Not detected (NOT DETECT) 09/01/23 16:14 Influenza A (H3) PCR Not detected (NOT DETECT) 09/01/23 16:14 Influenza Type A (PCR) Not detected (NOT DETECT) 09/01/23 16:14 Influenza Type B (PCR) Not detected (NOT DETECT) 09/01/23 16:14 M. pneumoniae (PCR) Not detected (NOT DETECT) 09/01/23 16:14 Parainfluenza 1 (PCR) Not detected (NOT DETECT) 09/01/23 16:14 Parainfluenza 2 (PCR) Not detected (NOT DETECT) 09/01/23 16:14 Parainfluenza 3 (PCR) Not detected (NOT DETECT) 09/01/23 16:14 Parainfluenza 4 (PCR) Not detected (NOT DETECT) 09/01/23 16:14 RSV Type A (PCR) Not detected (NOT DETECT) 09/01/23 16:14 RSV Type B (PCR) Not detected (NOT DETECT) 09/01/23 16:14 Entero/Rhino (PCR) Not detected (NOT DETECT) 09/01/23 16:14 SARS-CoV-2 (PCR) Not detected (NOT DETECT) 09/01/23 16:14 Micro: Microbiology 09/03/23 13:50 Gram Stain - Final Cerebrospinal Fluid CSF Culture - Final A&P Assessment and plan (1) Bacteremia: GABRIELA was performed today. No vegetations were noted. Moderate mitral regurgitation was noted. (2) Status post transcatheter aortic valve replacement (TAVR) using bioprosthesis: The valve appears to be well-seated. No masses or vegetations noted. (3) Hypertension: Currently normotensive. Qualifiers: Hypertension type: unspecified Qualified Code(s): I10 - Essential (primary) hypertension (4) Chronic atrial fibrillation: The patient is on long-term oral anticoagulation. This may be continued. I may hold the Eliquis this morning (5) Presence of permanent cardiac pacemaker: The pacemaker function appears to be appropriate. (6) Hypertension: Currently normotensive. Qualifiers: Hypertension type: primary hypertension Qualified Code(s): I10 - Essential (primary) hypertension (7) Status post appendectomy: Because of the suppurative gangrenous appendicitis, possibility of this being a source is a consideration. Plan May continue on the current management. I may sign off at this point Attestations Medical Necessity Statement*: Deferred to the primary Coding Level of Care Code 96629 Diagnoses Bacteremia R78.81 Status post transcatheter aortic valve replacement (TAVR) using bioprosthesis Z95.3 Hypertension I10 Hypertension type: unspecified Chronic atrial fibrillation I48.20 Presence of permanent cardiac pacemaker Z95.0 Status post appendectomy Z90.49
[2023-09-07] VITALS (8 sets, daily range): BP systolic 118–178; BP diastolic 66–81; PULSE 60–68; RESP 16–18; TEMP 36.7–37.6; O2SAT 92–96
[2023-09-07] MEDS: ampicillin 2,000 MG in sodium chloride 0.9% (plus) 50 ML 100 MG IV ×6 (00:44→20:58)
[2023-09-07] MEDS: lactated ringers 1,000 ML 75 ML IV ×2 (04:30→20:57)
[2023-09-07 06:21] LABS: Basophils % 0.1 %; Eosinophils # 0.1 10^3/uL (0.0-0.8); Eosinophils % 0.4 %; Hematocrit 35.1 % (37-53); Lymphocytes # 7.6 10^3/uL (0.8-4.8); Lymphocytes % 35.3 %; Mean Corpuscular Hemoglobin 33.3 pg (27-33); Mean Corpuscular Volume 100.9 fl (82-101); Mean Platelet Volume 9.8 fL (7.4-10.4); Monocytes % 4.5 %; Neutrophils # 12.71 10^3/uL (1.8-7.7); Neutrophils % 59.1 %; Nucleated Red Blood Cells % 0 %; Platelet Count 135 10^3/cmm (157-399); Red Blood Count 3.48 10^6/uL (3.85-5.65); Red Cell Distribution Width 14.1 % (12.1-15.1); White Blood Count 21.54 10^3/uL (3.29-11.43)
[2023-09-07 06:22] LABS: Alanine Aminotransferase 72 U/L (0-41); Albumin Level 2.8 g/dL (3.5-5.2); Alkaline Phosphatase 207 U/L (40-130); Anion Gap 10.4 (5-19); Aspartate Amino Transferase 68 U/L (0-40); Blood Urea Nitrogen 18 mg/dL (8-23); Calcium 8.4 mg/dL (8.5-10.5); Carbon Dioxide 28 mmol/L (22-29); Chloride 101 mmol/L (98-107); Creatinine Clr Calc Pharmacy 75.3369; Globulin 2.5 g/dL (1.3-4.6); Glucose 87 mg/dL (65-115); Osmolality Calculated 283 mOsm/kg (285-295); Potassium 3.4 mmol/L (3.5-5.1); Sodium 136 mmol/L (136-145); Total Bilirubin 1.5 mg/dL (0.15-1.2); Total Protein 5.3 g/dL (6.6-8.7)
[2023-09-07 06:23] LABS: Chol HDL Ratio 4.14 mg/dL (1.0-5.00); Cholesterol 120 mg/dL (0-200); HDL Cholesterol 29 mg/dL (60-100); LDL Cholesterol Calculated 67 mg/dL (50-129); Magnesium 2.2 mg/dL (1.7-2.3); Triglycerides 121 mg/dL (0-150); VLDL Cholestrol Calculation 24 mg/dL (0-30)
[2023-09-07 06:42] LABS: Folate Level 11.7 ng/mL (4.5-32.2)
[2023-09-07] MEDS: aspirin 81 mg EC Tablet PO (06:46)
[2023-09-07] MEDS: pantoprazole DR 40 mg Tablet PO (06:46)
[2023-09-07 07:01] LABS: Slide Review Slide Review Perform
[2023-09-07 07:20] LABS: Estmated Average Glucose 111; Hemoglobin A1C 5.5 % (4.0-6.0)
[2023-09-07] MEDS: apixaban 5 mg Tablet PO ×2 (08:55→18:15)
[2023-09-07] MEDS: acetaminophen 325 mg Tablet 650 MG PO (08:55)
[2023-09-07] MEDS: gabapentin 300 mg Capsule PO ×3 (08:55→21:00)
[2023-09-07 10:10] LABS: C.Diff PCR (Lab) NEGATIVE (Negative)
[2023-09-07] MEDS: ferrous sulfate EC 325 mg Tablet PO (11:39)
[2023-09-07] MEDS: cyanocobalamin 1,000 mcg Tablet 1000 MCG PO (11:39)
[2023-09-07 13:18] LABS: Glucose Point of Care 113 mg/dL (70-110)
[2023-09-07] MEDS: vancomycin 1,500 MG/300 ML PIGGYBACK 200 MG IV (14:12)
--- NOTE | 2023-09-07 15:09 | P.PN_ITS ---
Subjective 2 Subjective: No acute events overnight. Patient denies any nausea vomiting, headache. Laying comfortably in bed. Remains on room air. Blood pressure slightly elevated. Has remained afebrile. Did not work with physical therapy in the morning today because of shoulder pain. Vitals/I&O/Wt Last Vital Signs Temp 98.2 F 09/07/23 11:40 Pulse 62 09/07/23 11:40 Resp 16 09/07/23 11:40 BP 152/75 09/07/23 11:40 Pulse Ox 96 09/07/23 11:40 O2 Del Method Room Air 09/07/23 11:40 O2 Flow Rate 3 09/06/23 12:46 FiO2 21 09/04/23 06:14 09/07/23 09/07/23 09/07/23 06:59 14:59 22:59 Intake Total 1865 / 3225 100 / 100 Output Total 1000 / 1000 Balance 865 / 2225 100 / 100 Weight last 48 hrs Weight 91.739 kg Weight 93.531 kg Physical Exam 2 Narrative: Accompanied by his Const: COMMON NORMALS: patient oriented x3 and alert GENERAL APPEARANCE: c ooperative and lethargic (Wakes up to) ORIENTATION/CONSCIOUSNESS: Yes lethargic (Wakes up to) HENMT: COMMON NORMALS: oropharynx normal Neck/C-Spine: COMMON NORMALS: no JVD Resp: COMMON NORMALS: normal respiratory effort and clear to auscultation bilaterally AUSCULTATION: clear to auscultation bilaterally Cardio: COMMON NORMALS: no JVD, regular rhythm, S1 normal heart sound present, S2 normal heart sound present and No murmurs present (Cardio) RHYTHM: regular rhythm HEART SOUNDS: S1 normal heart sound present and S2 normal heart sound present GI: COMMON NORMALS: Normal to inspection, nondistended, normoactive bowel sounds present, Soft to palpation and non-tender PALPATION: Yes Soft to palpation and Yes Tenderness to palpation present (GI) Extremity: COMMON NORMALS: no joint enlargement and no pedal edema Neuro: COMMON NORMALS: patient oriented x3 and moves all extremities S ENSORIUM/ORIENTATION: Yes alert and Yes lethargic (Wakes up to) OTHER: No rigidity, but pain with tilting his head forward. Skin: COMMON NORMALS: no rashes or lesions noted GENERAL SKIN EXAM: no rashes or lesions noted Urinary Catheter Management: Vickers: Cath Placed During This Visit: yes Reason for Continuing Indwelling Catheter: Other Urinary Catheter Date of Insertion: 09/02/23 Urinary Catheter Time of Insertion: 19:00 Data 09/07/23 05:29 09/07/23 05:29 Micro: Microbiology 09/07/23 08:13 Stool Lactoferrin - Final Stool 09/03/23 13:50 Gram Stain - Final Cerebrospinal Fluid CSF Culture - Final A&P Assessment and plan (1) Bacteremia due to Enterococcus: Unclear source. Does have recent history of necrotizing appendicitis followed by TAVR. Repeat blood cultures from 09/03 so far negative. Appreciate sensitivities. Patient continues to have worsening of leukocytosis. Has remained afebrile though. Patient gives history of allergies to penicillin with rash. Note complaints or history of anaphylaxis or difficulty in breathing. He is agreeable to try ampicillin. Continue with IV vancomycin. Monitor troughs. Switch from meropenem to IV ampicillin 2 g every 4 hours. Monitor renal functions. Appreciate GABRIELA results. Plan for repeat TTE today to rule out infective endocarditis. Patient has history of TAVR and pacemaker implantation. Patient is at high risk for endocarditis as per modified Cornell criteria with 1 major (blood culture positive with Enterococcus )and 2 minor criteria (predisposing heart condition including heart valve and pacemaker along with fever of more than 100 Fahrenheit on admission). Patient does have fluid collection at presacral area. Also concerns for enteritis on CT abdomen pelvis. Appreciate surgical recommendations. Patient will need overall at least 4 to 6 weeks of IV antibiotics from 4 set up negative blood cultures. Plan for PICC line placement once repeat blood cultures from 09/03 remain negative for next 24 hours. Worsening leukocytosis is seen. Unclear reason for now. Did complain of diarrhea overnight. Rule out C. difficile. Appreciate CSF studies which ruled out meningitis. CSF cultures negative. Patient does have abdominal collection as seen on CT abdomen/pelvis. Will discuss with surgery again for possible need of I&D versus washout. Antibiotic changes as above. (2) Acute encephalopathy: Most likely resolved. Mostly in setting of sepsis or infection on admission. CSF on admission appreciated. No concerns for meningitis. Unable to perform MRI due to pacemaker. Has a IV contrast allergy. CT of the head unremarkable but with moderate atrophy and volume loss and small vessel disease. (3) Sepsis: Sepsis resolved. Plan Atrial fibrillation: Rate controlled. It seems patient takes Cardizem 120 mg oral daily at home. Currently rate controlled in 60s without any Cardizem. Will continue to monitor on telemetry. Restart Eliquis. Lumbar puncture has been done. Stop heparin. Status post TAVR Status post laparoscopic appendectomy in June BPH: Restart home dose of dutasteride. Incidentally noted on CT abdomen pelvis CODE STATUS: Limited resuscitation. Again discussed in detail with patient and at bedside. Start on cardiac diet Eliquis will be sufficient for DVT prophylaxis Protonix for PUD prophylaxis Physical deconditioning: Worsening over last few weeks as per the . Patient was not even able to go to bathroom from bed recently with few episodes of dragging himself on the knees. Physical therapy. Plan for the day: Patient has tolerated ampicillin well. No concerns for anaphylaxis or rash. Continue with IV ampicillin. Stop vancomycin. Patient is at high risk of endocarditis given modified Cornell study. Endocarditis currently ruled out with GABRIELA. Will try to treat patient aggressively given high risk of IES for modified Cornell score. Continue with ampicillin. Add ceftriaxone 1 g daily. Patient will most likely need treatment for overall 6 weeks. Leukocytosis slightly trending down to 21,000 today. Stool studies negative for C. difficile. Repeat blood cultures so far negative.If remains negative for next 24 hours we will plan for PICC line tomorrow. Physical therapy. Monitor BMP. So far creatinine stable. Goal blood pressure less than 140/90 mmHg. Blood pressure slightly elevated. Heart rate well-controlled. Continue with Cardizem for now. If needed will add low-dose ROBERT versus ARB. Discharge plan: Plan to discharge home with home health versus to SNF as patient would need to IV antibiotics for overall 6 weeks and possibly physical therapy given physical deconditioning. Will discuss in detail with patient and family. Case management on board. Attestations 2 Medical Necessity Statement*: Requires further hospitalization for management of Enterococcus bacteremia in a patient with high concerns for infective endocarditis while outpatient antibiotics and safe discharge planning sought. Coding Level of Care Code Acute Code for [facility] Diagnoses Bacteremia due to Enterococcus R78.81; B95.2 Acute encephalopathy G93.40 Sepsis A41.9
[2023-09-07] MEDS: cefTRIAXone 1,000 MG in sodium chloride 0.9% (plus) 50 ML 100 MG IV (15:51)
[2023-09-07] MEDS: dutasteride 0.5 mg Capsule PO (18:15)
[2023-09-07] MEDS: trazodone 50 mg Tablet PO (21:00)
[2023-09-08] VITALS (10 sets, daily range): BP systolic 133–198; BP diastolic 70–93; PULSE 66–71; RESP 16–20; TEMP 36.4–38.4; O2SAT 91–96
[2023-09-08] MEDS: ampicillin 2,000 MG in sodium chloride 0.9% (plus) 50 ML 100 MG IV ×7 (00:45→23:33)
[2023-09-08] MEDS: acetaminophen 325 mg Tablet 650 MG PO ×2 (03:55→11:42)
[2023-09-08] MEDS: pantoprazole DR 40 mg Tablet PO (05:19)
[2023-09-08] MEDS: aspirin 81 mg EC Tablet PO (05:19)
[2023-09-08 06:28] LABS: Basophils % 0.1 %; Eosinophils # 0.1 10^3/uL (0.0-0.8); Eosinophils % 0.4 %; Lymphocytes # 7.3 10^3/uL (0.8-4.8); Lymphocytes % 33.9 %; Mean Corpuscular HGB Conc 33.1 g/dL (30-55); Mean Corpuscular Volume 99.7 fl (82-101); Mean Platelet Volume 10.5 fL (7.4-10.4); Monocytes % 4.4 %; Neutrophils # 12.92 10^3/uL (1.8-7.7); Neutrophils % 60.4 %; Nucleated Red Blood Cells % 0 %; Platelet Count 108 10^3/cmm (157-399); Red Blood Count 3.21 10^6/uL (3.85-5.65); Red Cell Distribution Width 14.1 % (12.1-15.1)
[2023-09-08 06:48] LABS: Alanine Aminotransferase 52 U/L (0-41); Albumin Level 2.5 g/dL (3.5-5.2); Alkaline Phosphatase 198 U/L (40-130); Anion Gap 11.4 (5-19); Aspartate Amino Transferase 33 U/L (0-40); Blood Urea Nitrogen 14 mg/dL (8-23); Calcium 8.1 mg/dL (8.5-10.5); Carbon Dioxide 26 mmol/L (22-29); Chloride 103 mmol/L (98-107); Creatinine Clr Calc Pharmacy 75.3892; Globulin 2.4 g/dL (1.3-4.6); Glucose 106 mg/dL (65-115); Osmolality Calculated 285 mOsm/kg (285-295); Potassium 3.4 mmol/L (3.5-5.1); Sodium 137 mmol/L (136-145); Total Bilirubin 2.1 mg/dL (0.15-1.2); Total Protein 4.9 g/dL (6.6-8.7)
[2023-09-08 06:54] LABS: Magnesium 2.1 mg/dL (1.7-2.3)
[2023-09-08 07:17] LABS: Slide Review Slide Review Perform
--- NOTE | 2023-09-08 07:59 | PM.PN ---
Subjective Subjective: 87-year-old male who had a history of appendectomy for gangrenous appendicitis in June 2023 he subsequently underwent aortic valve replacement on August 2023 and eventually developed bacteremia due to E. coli and sepsis and he was admitted for this reason. During hospital stay he was consulted as a CT scan of the abdomen pelvis show evidence of a minimal amount of terminal ileitis area with some small amount of free fluid surrounding terminal ileum and therefore I was asked for my opinion on these findings. Since then from the general surgery standpoint patient has been doing okay. He has been having regular bowel movements, tolerating diet and has no abdominal pain. From the infectious standpoint patient continues to appear septic, bacteremic. This morning discussion with the patient and family member they state that he feels uncomfortable is having progressive shortness of breath. According to the patient and family member it up at some point he will decompensate or his status worsen they likely will prefer to proceed with palliative care. Vitals/I&O/Wt Last Vital Signs Temp 98.7 F 09/08/23 07:36 Pulse 69 09/08/23 07:36 Resp 16 09/08/23 07:36 BP 155/70 09/08/23 07:36 Pulse Ox 94 09/08/23 07:36 O2 Del Method Room Air 09/08/23 07:36 O2 Flow Rate 3 09/06/23 12:46 FiO2 21 09/04/23 06:14 09/07/23 09/08/23 09/08/23 22:59 06:59 14:59 Intake Total 1570 / 1670 220 / 1890 Output Total 1150 / 1150 650 / 1800 Balance 420 / 520 -430 / 90 Weight last 48 hrs Weight 202 lb 9 oz Weight 202 lb 4 oz Physical Exam Narrative: General : Patient is well developed , no acute distress, oriented x3 Head : Normal cephalic, a-traumatic. Nose : Mucous membranes are without erythema. Lungs : Equal chest rise bilaterally, no use of accessory muscles, trachea is midline. CV : Rate and rhythm are normal. Abdomen : Soft, ND, NT, no g/r/m Extremities : No edema. Upper extremities are normal bilaterally. Back : non-tender to palpation, no CVA tenderness. Urinary Catheter Management: Vickers: Cath Placed During This Visit: yes Reason for Continuing Indwelling Catheter: Other Urinary Catheter Date of Insertion: 09/02/23 Urinary Catheter Time of Insertion: 19:00 Data 09/08/23 06:02 09/08/23 06:02 Micro: Microbiology 09/07/23 08:13 Stool Lactoferrin - Final Stool A&P Assessment and plan (1) Severe aortic stenosis: (2) Status post laparoscopic appendectomy: (3) Sepsis: (4) Bacteremia due to Enterococcus: Plan On my evaluation this morning abdominal exam is benign, patient continues to have bowel movements, has good bowel sounds and is tolerating diet. No additional recommendations can be made from the general surgery standpoint regarding the possible source of bacteremia. On my discussion this morning with patient and family member, it is apparent that there were of the severity of the situation and they have decided to continue to live status worsens they might prefer to proceed with a more palliative route and continue additional care. All other management will be continued by medical team, I will continue to follow-up with the patient to ensure adequate progression of abdominal exam. No surgical interventions are recommended at this time. Attestations Medical Necessity Statement*: Per medical team Coding Level of Care Code Acute Code for [facility] Diagnoses Severe aortic stenosis I35.0 Status post laparoscopic appendectomy Z90.49 Sepsis A41.9 Bacteremia due to Enterococcus R78.81; B95.2
[2023-09-08] MEDS: gabapentin 300 mg Capsule PO ×3 (08:40→20:18)
[2023-09-08] MEDS: polyethylene glycol 3350 Pkt 17 gm PO (08:40)
[2023-09-08] MEDS: apixaban 5 mg Tablet PO (08:40)
[2023-09-08] MEDS: lactated ringers 1,000 ML 75 ML IV ×2 (08:41→21:36)
--- NOTE | 2023-09-08 11:35 | CT_ITS ---
WS: [id number] CT LUMBAR SPINE TECHNIQUE: Contrast-enhanced CT of the lumbar spine with coronal and sagittal reformatted images. CLINICAL INFORMATION: source of infection COMPARISON: None. DLP: 1176.[address] scans at [facility] use at least one of these dose optimization techniques: automated e xposure control; mA and/or kV adjustment per patient size (includes targeted exams where dose is matc hed to clinical indication); or iterative reconstruction. FINDINGS: Mild lumbar curve. No acute compression fractures. No evidence of discitis or osteomyelitis. No evide nce of paravertebral abscess. L1-L2: Mild annular bulging. Mild RIGHT foraminal narrowing. Mild facet arthropathy. L2-L3: Mild facet arthropathy. Spinal canal and foramen are patent. L3-L4: Mild annular bulging. Slight narrowing of the subarticular recess bilaterally. Mild RIGHT fora eliazar narrowing. L4-L5: Mild disc bulging with mild central canal stenosis. Small foraminal protrusions with mild fora eliazar narrowing. Moderate facet arthropathy. L5-S1: Mild annular bulging. Mild LEFT foraminal narrowing. Spinal canal and RIGHT foramen are patent . Moderate facet arthropathy. CT/CT lumbar spine w con [id number] IMPRESSION: No evidence of discitis or osteomyelitis.
--- NOTE | 2023-09-08 11:35 | XRR_ITS ---
PROCEDURE INFORMATION: Exam: XR Right Shoulder Exam date and time: 09/08/2023 12:04 PM Age: 87 years old Clinical indication: Pain; Shoulder; Right TECHNIQUE: Imaging protocol: Radiologic exam of the right shoulder. Views: 2 or more views. COMPARISON: CR XR chest 1V portable [id number] 09/01/2023 7:42 AM FINDINGS: Bones/joints: Normal. Soft tissues: Normal. XR/XR shoulder RT min 2V* [id number] IMPRESSION: No acute findings.
--- NOTE | 2023-09-08 11:35 | XRR_ITS ---
PROCEDURE INFORMATION: Exam: XR Left Shoulder Exam date and time: 09/08/2023 12:06 PM Age: 87 years old Clinical indication: Pain; Shoulder; Bilateral TECHNIQUE: Imaging protocol: Radiologic exam of the left shoulder. Views: 2 or more views. COMPARISON: CR XR chest 1V portable [id number] 09/01/2023 7:42 AM FINDINGS: Tubes, catheters and devices: Pacemaker noted. Bones/joints: Normal. Soft tissues: Normal. XR/XR shoulder LT min 2V* [id number] IMPRESSION: No acute findings.
--- NOTE | 2023-09-08 11:37 | CT_ITS ---
WS: [id number] CT CHEST, ABDOMEN, AND PELVIS TECHNIQUE: Contrast-enhanced CT of the chest, abdomen, and pelvis with coronal and sagittal reformatt ed images. CLINICAL INFORMATION: abd collection, possible achalculous cholecystitis COMPARISON: CT abdomen pelvis 09/05/2023 DLP: 1176.[address] scans at [facility] use at least one of these dose optimization techniques: automated e xposure control; mA and/or kV adjustment per patient size (includes targeted exams where dose is matc hed to clinical indication); or iterative reconstruction. CT CHEST: Moderate bilateral pleural effusions with compressive atelectasis in the lung bases similar to the pr evious studies. Cardiomegaly. Aortic calcification. Coronary calcification. Cardiac pacer. Aortic edy ve replacement. Mild thoracic kyphosis. Mild thoracic curve. No new pulmonary infiltrates. Shallow in spiration. CT ABDOMEN AND PELVIS: Diffuse fatty infiltration of the liver. Gallbladder appears normal. Motion degrades some images. Fat ty atrophy of the pancreas. Adrenal glands are normal. Heterogeneous splenic enhancement suspected in farct involving the tip of the spleen similar to previous. Normal GE junction. Small splenule. Normal caliber abdominal aorta. Celiac and SMA are patent. Bilateral renal parenchymal scarring. No h ydronephrosis. Small RIGHT renal cyst. Vickers catheter. Enlarged prostate. Fat-containing inguinal her nias. Small amount of fluid in the RIGHT pericolic gutter. No evidence of drainable abscess or fluid collection in the pelvis. No other acute findings. CT/CT chest abdpel w/*[id number] IMPRESSION: 1. Moderate bilateral pleural effusions slightly increased compared to previou s with compressive atelectasis in the lung bases. Cardiomegaly. 2. No evidence of drainable abscess or fluid collection in the pelvis. Trace b enign-appearing fluid in the RIGHT pericolic gutter. This is improved compared to previous. 3. Vickers catheter. Enlarged prostate. 4. Gallbladder appears normal. 5. 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
[2023-09-08 11:39] LABS: Erythrocyte Sedimentation Rate 7 mm/hr (0-10)
[2023-09-08] MEDS: cyanocobalamin 1,000 mcg Tablet 1000 MCG PO (11:42)
[2023-09-08] MEDS: ferrous sulfate EC 325 mg Tablet PO (11:42)
[2023-09-08 11:59] LABS: C Reactive Protein 122.7 mg/L (0.0-4.9)
[2023-09-08] MEDS: methylPREDNISolone sod succ 40 mg/mL INJ IVP (13:59)
[2023-09-08] MEDS: diphenhydrAMINE 50 mg/mL SDV 1mL IVP (14:00)
[2023-09-08] MEDS: iohexol 350 mg/mL 500 mL Btl (per mL) IV (14:36)
--- NOTE | 2023-09-08 15:22 | P.PN_ITS ---
Subjective 2 Subjective: Today morning seen with at bedside. Patient is tired appearing. Worked with physical therapy. Denies any nausea, vomiting, headache. Tmax of 101.1 Fahrenheit overnight. Complaining of bilateral shoulder pain. Denies of any pain in his knees. Complaining of back pain on and off. Denies any other hardware in the body. Complaining of sore over his upper lip and below his lower lip. States the fourth developed within last 24 hours. Does give history of getting occasional sore around the lips. Vitals/I&O/Wt Last Vital Signs Temp 98.7 F 09/08/23 11:35 Pulse 67 09/08/23 11:35 Resp 16 09/08/23 11:35 BP 152/82 09/08/23 11:35 Pulse Ox 96 09/08/23 11:35 O2 Del Method Room Air 09/08/23 11:35 O2 Flow Rate 3 09/06/23 12:46 FiO2 21 09/04/23 06:14 09/08/23 09/08/23 09/08/23 06:59 14:59 22:59 Intake Total 220 / 1890 980 / 980 Output Total 650 / 1800 Balance -430 / 90 980 / 980 Weight last 48 hrs Weight 91.881 kg Weight 91.739 kg Physical Exam 2 Narrative: Accompanied by his Const: COMMON NORMALS: patient oriented x3 and alert GENERAL APPEARANCE: c ooperative and lethargic (Wakes up to) ORIENTATION/CONSCIOUSNESS: Yes lethargic (Wakes up to) HENMT: COMMON NORMALS: oropharynx normal Neck/C-Spine: COMMON NORMALS: no JVD Resp: COMMON NORMALS: normal respiratory effort and clear to auscultation bilaterally AUSCULTATION: clear to auscultation bilaterally Cardio: COMMON NORMALS: no JVD, regular rhythm, S1 normal heart sound present, S2 normal heart sound present and No murmurs present (Cardio) RHYTHM: regular rhythm HEART SOUNDS: S1 normal heart sound present and S2 normal heart sound present GI: COMMON NORMALS: Normal to inspection, nondistended, normoactive bowel sounds present, Soft to palpation and non-tender PALPATION: Yes Soft to palpation and Yes Tenderness to palpation present (GI) Extremity: COMMON NORMALS: no joint enlargement and no pedal edema Neuro: COMMON NORMALS: patient oriented x3 and moves all extremities S ENSORIUM/ORIENTATION: Yes alert and Yes lethargic (Wakes up to) OTHER: No rigidity, but pain with tilting his head forward. Skin: NARRATIVE SKIN EXAM: Well scabbed vesicular sore present above the left side of the upper lip and below the right side of the lower lip. Urinary Catheter Management: Vickers: Cath Placed During This Visit: yes Reason for Continuing Indwelling Catheter: Other Urinary Catheter Date of Insertion: 09/02/23 Urinary Catheter Time of Insertion: 19:00 Data 09/09/23 04:46 09/09/23 04:46 Micro: Microbiology 09/08/23 10:02 Blood Culture - Preliminary Blood SPECIMEN COLLECTED 09/08/23 09:57 Blood Culture - Preliminary Blood SPECIMEN COLLECTED A&P Assessment and plan (1) Bacteremia due to Enterococcus: Unclear source. Does have recent history of necrotizing appendicitis followed by TAVR. Repeat blood cultures from 09/03 so far negative. Appreciate sensitivities. Patient continues to have worsening of leukocytosis. Has remained afebrile though. Patient gives history of allergies to penicillin with rash. Note complaints or history of anaphylaxis or difficulty in breathing. He is agreeable to try ampicillin. Continue with IV vancomycin. Monitor troughs. Switch from meropenem to IV ampicillin 2 g every 4 hours. Monitor renal functions. Appreciate GABRIELA results. Plan for repeat TTE today to rule out infective endocarditis. Patient has history of TAVR and pacemaker implantation. Patient is at high risk for endocarditis as per modified Cornell criteria with 1 major (blood culture positive with Enterococcus )and 2 minor criteria (predisposing heart condition including heart valve and pacemaker along with fever of more than 100 Fahrenheit on admission). Patient does have fluid collection at presacral area. Also concerns for enteritis on CT abdomen pelvis. Appreciate surgical recommendations. Patient will need overall at least 4 to 6 weeks of IV antibiotics from 4 set up negative blood cultures. Plan for PICC line placement once repeat blood cultures from 09/03 remain negative for next 24 hours. Worsening leukocytosis is seen. Unclear reason for now. Did complain of diarrhea overnight. Rule out C. difficile. Appreciate CSF studies which ruled out meningitis. CSF cultures negative. Patient does have abdominal collection as seen on CT abdomen/pelvis. Will discuss with surgery again for possible need of I&D versus washout. Antibiotic changes as above. (2) Acute encephalopathy: Most likely resolved. Mostly in setting of sepsis or infection on admission. CSF on admission appreciated. No concerns for meningitis. Unable to perform MRI due to pacemaker. Has a IV contrast allergy. CT of the head unremarkable but with moderate atrophy and volume loss and small vessel disease. (3) Sepsis: Sepsis resolved. (4) Hypertension: Qualifiers: Hypertension type: primary hypertension Qualified Code(s): I10 - Essential (primary) hypertension (5) Status post transcatheter aortic valve replacement (TAVR) using bioprosthesis: (6) Afib: Qualifiers: Atrial fibrillation type: unspecified Qualified Code(s): I48.91 - Unspecified atrial fibrillation Plan Atrial fibrillation: Rate controlled. It seems patient takes Cardizem 120 mg oral daily at home. Currently rate controlled in 60s without any Cardizem. Will continue to monitor on telemetry. Restart Eliquis. Lumbar puncture has been done. Stop heparin. Status post TAVR Status post laparoscopic appendectomy in June BPH: Restart home dose of dutasteride. Incidentally noted on CT abdomen pelvis CODE STATUS: Limited resuscitation. Again discussed in detail with patient and at bedside. Start on cardiac diet Eliquis will be sufficient for DVT prophylaxis Protonix for PUD prophylaxis Physical deconditioning: Worsening over last few weeks as per the . Patient was not even able to go to bathroom from bed recently with few episodes of dragging himself on the knees. Physical therapy. Plan for the day: Patient developed fever overnight. Going up to 101.1 Fahrenheit. White count has remained elevated up to 21,000. C. difficile was ruled out. Given occurrence of fever with continuous elevated to stable white count we will have to look for further source of infection. Will rescan CT abdomen pelvis with contrast, CT of the spine with contrast along with bilateral shoulder x-rays. Skeletal survey done otherwise patient does not show any swelling, erythema or pain of the joints. Does have sore around the lips. Does give history of source of fever. Cannot rule out herpes labialis. Start on Valtrex 1000 mg twice daily. For now we will continue with current IV antibiotics with ampicillin and ceftriaxone at current dose. Monitor renal functions. Repeat blood cultures. Blood cultures sent on 09/03 so far negative. CSF cultures negative. Continue with physical therapy. Patient remains afebrile and blood cultures remain negative for last 48 hours we will plan for PICC line placement. Plan for further investigations depending on the results of the CT ordered. Blood pressure still elevated. Continue to monitor for now. Discharge plan: Plan to discharge home with home health versus to SNF as patient would need to IV antibiotics for overall 6 weeks and possibly physical therapy given physical deconditioning. Will discuss in detail with patient and family. Case management on board. Attestations 2 Medical Necessity Statement*: Requires further hospitalization for management of enterococcal bacteremia as patient continues to spike fever while further source evaluation,, meningitis as he is high risk for infective endocarditis, physical deconditioning while safe discharge planning is sought. , Diagnoses Bacteremia due to Enterococcus R78.81; B95.2 Acute encephalopathy G93.40 Sepsis A41.9 Primary hypertension I10 Hypertension type: primary hypertension Status post transcatheter aortic valve replacement (TAVR) using bioprosthesis Z95.3 Atrial fibrillation, unspecified type I48.91 Atrial fibrillation type: unspecified
[2023-09-08] MEDS: cefTRIAXone 1,000 MG in sodium chloride 0.9% (plus) 50 ML 100 MG IV (17:07)
[2023-09-08] MEDS: valACYclovir 1,000 mg Tablet 1000 MG PO (17:08)
[2023-09-08] MEDS: dutasteride 0.5 mg Capsule PO (17:08)
[2023-09-08] MEDS: trazodone 50 mg Tablet PO (20:18)
[2023-09-09] VITALS (10 sets, daily range): BP systolic 92–158; BP diastolic 64–81; PULSE 60–74; RESP 16–19; TEMP 36.3–36.8; O2SAT 91–96
[2023-09-09 05:03] LABS: Basophils % 0.1 %; Lymphocytes # 5.8 10^3/uL (0.8-4.8); Mean Corpuscular HGB Conc 33.9 g/dL (30-55); Mean Corpuscular Hemoglobin 33.8 pg (27-33); Mean Corpuscular Volume 99.7 fl (82-101); Mean Platelet Volume 10.4 fL (7.4-10.4); Monocytes # 0.4 10^3/uL (0.2-0.9); Monocytes % 2.8 %; Neutrophils # 8.25 10^3/uL (1.8-7.7); Neutrophils % 56.7 %; Nucleated Red Blood Cells % 0 %; Platelet Count 105 10^3/cmm (157-399); Red Blood Count 3.11 10^6/uL (3.85-5.65); Red Cell Distribution Width 14.2 % (12.1-15.1); White Blood Count 14.56 10^3/uL (3.29-11.43)
[2023-09-09 05:31] LABS: Slide Review Slide Review Perform
[2023-09-09] MEDS: ampicillin 2,000 MG in sodium chloride 0.9% (plus) 50 ML 100 MG IV ×5 (05:31→20:44)
[2023-09-09] MEDS: pantoprazole DR 40 mg Tablet PO (05:31)
[2023-09-09 05:34] LABS: Magnesium 2.1 mg/dL (1.7-2.3)
[2023-09-09 05:38] LABS: Alanine Aminotransferase 41 U/L (0-41); Albumin Level 2.6 g/dL (3.5-5.2); Alkaline Phosphatase 183 U/L (40-130); Anion Gap 10.8 (5-19); Aspartate Amino Transferase 24 U/L (0-40); Blood Urea Nitrogen 14 mg/dL (8-23); Calcium 8.2 mg/dL (8.5-10.5); Carbon Dioxide 28 mmol/L (22-29); Chloride 102 mmol/L (98-107); Creatinine Clr Calc Pharmacy 74.1996; Globulin 2.3 g/dL (1.3-4.6); Glucose 140 mg/dL (65-115); Osmolality Calculated 287 mOsm/kg (285-295); Potassium 3.8 mmol/L (3.5-5.1); Sodium 137 mmol/L (136-145); Total Bilirubin 1.3 mg/dL (0.15-1.2); Total Protein 4.9 g/dL (6.6-8.7)
[2023-09-09] MEDS: valACYclovir 1,000 mg Tablet 1000 MG PO ×2 (08:26→17:05)
[2023-09-09] MEDS: gabapentin 300 mg Capsule PO ×3 (08:27→20:44)
[2023-09-09] MEDS: lactated ringers 1,000 ML 75 ML IV (08:31)
[2023-09-09] MEDS: cyanocobalamin 1,000 mcg Tablet 1000 MCG PO (11:30)
[2023-09-09] MEDS: ferrous sulfate EC 325 mg Tablet PO (11:30)
[2023-09-09] MEDS: losartan 50 mg Tablet 25 MG PO (14:32)
[2023-09-09] MEDS: cefTRIAXone 1,000 MG in sodium chloride 0.9% (plus) 50 ML 100 MG IV (14:33)
[2023-09-09] MEDS: dutasteride 0.5 mg Capsule PO (17:05)
--- NOTE | 2023-09-09 17:14 | P.PN_ITS ---
Subjective 2 Subjective: No acute vents overnight. Patient has remained afebrile last 24 hours. Today morning seen with at bedside. He states he is feeling slightly better. Had a good bowel movement earlier today morning. Seems to be more energetic. States he has been breathing better. Does not have any further belly pain while coughing. Vitals/I&O/Wt Last Vital Signs Temp 98.2 F 09/09/23 15:29 Pulse 74 09/09/23 15:29 Resp 16 09/09/23 15:29 BP 158/73 09/09/23 15:29 Pulse Ox 96 09/09/23 15:29 O2 Del Method Room Air 09/09/23 15:29 O2 Flow Rate 3 09/06/23 12:46 FiO2 21 09/04/23 06:14 09/09/23 09/09/23 09/09/23 06:59 14:59 22:59 Intake Total 100 / 2198.75 1278.75 / 1278.75 50 / 1328.75 Output Total 250 / 1800 250 / 250 Balance -150 / 398.75 1028.75 / 1028.75 50 / 1078.75 Weight last 48 hrs Weight 88.649 kg Weight 91.881 kg Physical Exam 2 Narrative: Accompanied by his Const: COMMON NORMALS: patient oriented x3 and alert GENERAL APPEARANCE: c ooperative and lethargic (Wakes up to) ORIENTATION/CONSCIOUSNESS: Yes lethargic (Wakes up to) HENMT: COMMON NORMALS: oropharynx normal Neck/C-Spine: COMMON NORMALS: no JVD Resp: COMMON NORMALS: normal respiratory effort and clear to auscultation bilaterally AUSCULTATION: clear to auscultation bilaterally Cardio: COMMON NORMALS: no JVD, regular rhythm, S1 normal heart sound present, S2 normal heart sound present and No murmurs present (Cardio) RHYTHM: regular rhythm HEART SOUNDS: S1 normal heart sound present and S2 normal heart sound present GI: COMMON NORMALS: Normal to inspection, nondistended, normoactive bowel sounds present, Soft to palpation and non-tender PALPATION: Yes Soft to palpation and Yes Tenderness to palpation present (GI) Extremity: COMMON NORMALS: no joint enlargement and no pedal edema Neuro: COMMON NORMALS: patient oriented x3 and moves all extremities S ENSORIUM/ORIENTATION: Yes alert and Yes lethargic (Wakes up to) OTHER: No rigidity, but pain with tilting his head forward. Skin: COMMON NORMALS: no rashes or lesions noted NARRATIVE SKIN EXAM: Well scabbed vesicular sore present above the left side of the upper lip and below the right side of the lower lip. GENERAL SKIN EXAM: no rashes or lesions noted Urinary Catheter Management: Vickers: Cath Placed During This Visit: yes Reason for Continuing Indwelling Catheter: Other Urinary Catheter Date of Insertion: 09/02/23 Urinary Catheter Time of Insertion: 19:00 Data 09/09/23 04:46 09/09/23 04:46 Micro: Microbiology 09/04/23 13:19 Blood Culture - Final Blood NO GROWTH AFTER 5 DAYS 09/04/23 13:16 Blood Culture - Final Blood NO GROWTH AFTER 5 DAYS 09/08/23 10:02 Blood Culture - Preliminary Blood NEGATIVE TO DATE 09/08/23 09:57 Blood Culture - Preliminary Blood NEGATIVE TO DATE A&P Assessment and plan (1) Bacteremia due to Enterococcus: Unclear source. Does have recent history of necrotizing appendicitis followed by TAVR. Repeat blood cultures from 09/03 so far negative. Appreciate sensitivities. Patient continues to have worsening of leukocytosis. Has remained afebrile though. Patient gives history of allergies to penicillin with rash. Note complaints or history of anaphylaxis or difficulty in breathing. He is agreeable to try ampicillin. Continue with IV vancomycin. Monitor troughs. Switch from meropenem to IV ampicillin 2 g every 4 hours. Monitor renal functions. Appreciate GABRIELA results. Plan for repeat TTE today to rule out infective endocarditis. Patient has history of TAVR and pacemaker implantation. Patient is at high risk for endocarditis as per modified Cornell criteria with 1 major (blood culture positive with Enterococcus )and 2 minor criteria (predisposing heart condition including heart valve and pacemaker along with fever of more than 100 Fahrenheit on admission). Patient does have fluid collection at presacral area. Also concerns for enteritis on CT abdomen pelvis. Appreciate surgical recommendations. Patient will need overall at least 4 to 6 weeks of IV antibiotics from 4 set up negative blood cultures. Plan for PICC line placement once repeat blood cultures from 09/03 remain negative for next 24 hours. Worsening leukocytosis is seen. Unclear reason for now. Did complain of diarrhea overnight. Rule out C. difficile. Appreciate CSF studies which ruled out meningitis. CSF cultures negative. Patient does have abdominal collection as seen on CT abdomen/pelvis. Will discuss with surgery again for possible need of I&D versus washout. Antibiotic changes as above. (2) Acute encephalopathy: Most likely resolved. Mostly in setting of sepsis or infection on admission. CSF on admission appreciated. No concerns for meningitis. Unable to perform MRI due to pacemaker. Has a IV contrast allergy. CT of the head unremarkable but with moderate atrophy and volume loss and small vessel disease. (3) Sepsis: Sepsis resolved. 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 It seems patient takes Cardizem 120 mg oral daily at home. Currently rate controlled in 60s without any Cardizem. Will continue to monitor on telemetry. Restart Eliquis. Lumbar puncture has been done. Stop heparin. Status post TAVR Status post laparoscopic appendectomy in June BPH: Restart home dose of dutasteride. Incidentally noted on CT abdomen pelvis CODE STATUS: Limited resuscitation. Again discussed in detail with patient and at bedside. Start on cardiac diet Eliquis will be sufficient for DVT prophylaxis Protonix for PUD prophylaxis Physical deconditioning: Worsening over last few weeks as per the . Patient was not even able to go to bathroom from bed recently with few episodes of dragging himself on the knees. Physical therapy. Plan for the day: Leukocytosis trending down today. Down to 14,000. Patient has remained afebrile. CT surveillance yesterday showed bilateral pleural effusion. Patient will need diagnostic pleural tap to rule out empyema. He is agreeable. Hold off on Eliquis. Plan for thoracentesis in AM. N.p.o. after midnight. Otherwise CT abdomen pelvis shows improvement in pelvic collection. No concerns for abscess. Shoulder x-rays within normal limits. Continue with oral Valtrex. Continue with IV ampicillin and IV ceftriaxone. Patient is on dual therapy given high concerns for infective endocarditis as per modified Lagrange criteria. Repeat blood cultures so far negative. Plan for PICC line in a.m. if patient's blood cultures remain negative and if he remains afebrile. Stop IV fluids. Patient's blood pressure is elevated. Add losartan 25 mg oral daily. Goal blood pressure less than 140/90 mmHg. Discharge plan: Patient has been accepted to SNF. Will plan to discharge to SNF with PICC line placement for 6 weeks of IV antibiotics once medically stable. Attestations 2 Medical Necessity Statement*: Requires further hospitalization for management of Enterococcus bacteremia, physical deconditioning while safe discharge planning and outpatient antibiotics along with source control is done. 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
[2023-09-09] MEDS: trazodone 50 mg Tablet PO (20:44)
[2023-09-10] VITALS (9 sets, daily range): BP systolic 160–178; BP diastolic 70–79; PULSE 57–62; RESP 16–18; TEMP 36.6–37.1; O2SAT 91–95
[2023-09-10] MEDS: ampicillin 2,000 MG in sodium chloride 0.9% (plus) 50 ML 100 MG IV ×7 (01:06→23:28)
[2023-09-10] MEDS: lactated ringers 1,000 ML 75 ML IV (02:18)
[2023-09-10 05:43] LABS: Basophils % 0.1 %; Eosinophils # 0.2 10^3/uL (0.0-0.8); Eosinophils % 0.9 %; Hematocrit 31.2 % (37-53); Lymphocytes # 9.1 10^3/uL (0.8-4.8); Lymphocytes % 47.2 %; Mean Corpuscular HGB Conc 33.3 g/dL (30-55); Mean Corpuscular Hemoglobin 33.3 pg (27-33); Monocytes # 0.8 10^3/uL (0.2-0.9); Monocytes % 4.2 %; Neutrophils # 9.01 10^3/uL (1.8-7.7); Neutrophils % 47.1 %; Nucleated Red Blood Cells % 0 %; Platelet Count 133 10^3/cmm (157-399); Red Blood Count 3.12 10^6/uL (3.85-5.65); Red Cell Distribution Width 14.5 % (12.1-15.1); White Blood Count 19.18 10^3/uL (3.29-11.43)
--- NOTE | 2023-09-10 05:46 | PC.NURSE ---
Pt had 11 beat run of vtach this morning at 0016 before pacemaker began pacing again. Pt was asymptomatic during episode. Dr. Mesa was notified and telemetry strip was printed and posted in the pt chart.
--- NOTE | 2023-09-10 06:00 | US_ITS ---
WS: [id number] ULTRASOUND-GUIDED THORACENTESIS CLINICAL INFORMATION: possible empyema, bilateral diagnostic PROCEDURE: Informed consent: The risks, benefits, and alternatives of the procedure were discussed with the luis ent. Verbal and written consent was obtained. Timeout: A timeout was performed to confirm the correct patient, procedure, and site. Site: LEFT chest Preparation: A suitable skin site was identified. The patient was prepped and draped in usual sterile fashion. Lidocaine 1% was used for local anesthesia. Catheter: 4 Faroese One-Step catheter. Fluid Volume: 800 ml Color: Reddish-orange Fluid collected for laboratory analysis. Complications: None. / thoracentesis [id number] IMPRESSION: 1. Uncomplicated ultrasound-guided LEFT thoracentesis. 2. Compressive atelectasis RIGHT lower lobe. No safe window access to perform RIGHT lower lobe thoracentesis
[2023-09-10 06:01] LABS: Slide Review Slide Review Perform
[2023-09-10 06:12] LABS: Alanine Aminotransferase 49 U/L (0-41); Albumin Level 2.6 g/dL (3.5-5.2); Alkaline Phosphatase 182 U/L (40-130); Anion Gap 11.4 (5-19); Aspartate Amino Transferase 41 U/L (0-40); Blood Urea Nitrogen 17 mg/dL (8-23); Calcium 8.2 mg/dL (8.5-10.5); Carbon Dioxide 28 mmol/L (22-29); Chloride 103 mmol/L (98-107); Creatinine Clr Calc Pharmacy 76.8916; Globulin 2.2 g/dL (1.3-4.6); Glucose 93 mg/dL (65-115); Osmolality Calculated 289 mOsm/kg (285-295); Potassium 3.4 mmol/L (3.5-5.1); Sodium 139 mmol/L (136-145); Total Protein 4.8 g/dL (6.6-8.7)
[2023-09-10 06:47] LABS: INR 1.68 (0.8-1.2)
[2023-09-10 06:48] LABS: Partial Thromboplastin Time 39.5 SECONDS (23.9-36.7)
--- NOTE | 2023-09-10 09:40 | P.PN_ITS ---
Subjective 2 Subjective: 87-year-old male who was admitted to the hospital with E. coli bacteremia. I have been following the patient due to remote history of appendectomy and findings on [facility] of inflammation in the terminal ileum with free fluid at the level of the pelvis. Patient has remained stable over the last 24 hours, shortness of breath is slightly improved. Has been ambulating, tolerating diet,, having bowel movements, complains of minimal abdominal pain in the lower abdomen. Vitals/I&O/Wt Last Vital Signs Temp 97.8 F 09/10/23 07:24 Pulse 61 09/10/23 07:39 Resp 18 09/10/23 07:39 BP 172/79 09/10/23 07:24 Pulse Ox 95 09/10/23 07:39 O2 Del Method Room Air 09/10/23 07:39 O2 Flow Rate 3 09/06/23 12:46 FiO2 21 09/04/23 06:14 09/09/23 09/10/23 09/10/23 22:59 06:59 14:59 Intake Total 1150 / 2428.75 100 / 2528.75 Output Total 900 / 1150 500 / 1650 Balance 250 / 1278.75 -400 / 878.75 Weight last 48 hrs Weight 211 lb 9 oz Weight 195 lb 7 oz Physical Exam 2 Narrative: Patient is alert and oriented, no significant distress at the time of evaluation. GI: OTHER: Abdomen is soft, nontender, nondistended no peritoneal signs. Urinary Catheter Management: Vickers: Cath Placed During This Visit: yes Reason for Continuing Indwelling Catheter: Acute Urinary Retention or Obstruction Urinary Catheter Date of Insertion: 09/02/23 Urinary Catheter Time of Insertion: 19:00 Data 09/10/23 05:01 09/10/23 05:01 Micro: Microbiology 09/04/23 13:19 Blood Culture - Final Blood NO GROWTH AFTER 5 DAYS 09/04/23 13:16 Blood Culture - Final Blood NO GROWTH AFTER 5 DAYS 09/08/23 10:02 Blood Culture - Preliminary Blood NEGATIVE TO DATE 09/08/23 09:57 Blood Culture - Preliminary Blood NEGATIVE TO DATE A&P Assessment and plan (1) Status post laparoscopic appendectomy: (2) Bacteremia due to Enterococcus: Plan From the general surgery standpoint, patient has had adequate progression. Repeat CT scan of the chest abdomen and pelvis that was done 48 hours ago showed improvement of the minimal amount of free fluid in the abdomen and there is no evidence of persistent enteritis or terminal ileitis. His abdominal exam is benign. Patient will continue management of bacteremia per medical team, at this point no additional surgical intervention is indicated and general surgery will follow-up in the periphery and remain available as needed. Attestations 2 Medical Necessity Statement*: Per medical team Coding Level of Care Code Acute Code for Chg Fwd Diagnoses Status post laparoscopic appendectomy Z90.49 Bacteremia due to Enterococcus R78.81; B95.2
--- NOTE | 2023-09-10 10:25 | XRR_ITS ---
PROCEDURE INFORMATION: Exam: XR Chest Exam date and time: 09/10/2023 11:26 AM Age: 87 years old Clinical indication: Device placement; Other: Post thoracentesis TECHNIQUE: Imaging protocol: Radiologic exam of the chest. Views: 1 view. COMPARISON: CT chest abdpel w/*[id number] 05/14/2023 14:07 FINDINGS: Tubes, catheters and devices: Two lead pacemaker on the left side of the chest, stable. TAVR is present. Lungs: Mild infiltrates versus atelectasis at the lung bases, [id number]-left. Pleural spaces: Suspected small right pleural effusion. No evidence of pneumothorax status post thoracentesis. Heart/Mediastinum: The heart size is stable. Bones/joints: Unremarkable. XR/XR chest 1V portable [id number] IMPRESSION: 1. No evidence of pneumothorax status post thoracentesis. Small residual right pleural effusion suspected 2. Mild infiltrate versus atelectasis at the lung bases, [id number]-left
[2023-09-10 11:22] LABS: Body Fluid Polynuclear #Cells 0.031; Body Fluid WBC 130 /uL; Monocytes # Body Fluid 0.099
[2023-09-10 11:42] LABS: Lactate Dehydrogenase 347 U/L (135-225)
[2023-09-10 11:46] LABS: Apprearance, Body Fluid CLOUDY; Color, Body Fluid YELLOW
[2023-09-10 11:48] LABS: PATH Referral YES
--- NOTE | 2023-09-10 11:57 | XR_ITS ---
WS: [id number] XR chest 1V portable [id number] REASON FOR EXAM: Post PICC insertion FINDINGS: Compared to the examination of earlier today, there is been placement of a right arm PICC line. The t ip is located in the distal superior vena cava. Interstitial lung opacities in the right lung have increased compared to the exam of earlier today. No other interval change or new finding. XR/XR chest 1V portable [id number] IMPRESSION: Properly positioned right arm PICC line which was confirmed over the phone with the technologist at 1:05 p.m. Interstitial lung opacities in the right lung appear increased compared to the examination of earlier today.
[2023-09-10] MEDS: losartan 50 mg Tablet 25 MG PO (12:03)
[2023-09-10] MEDS: ferrous sulfate EC 325 mg Tablet PO (12:03)
[2023-09-10] MEDS: cyanocobalamin 1,000 mcg Tablet 1000 MCG PO (12:03)
[2023-09-10] MEDS: pantoprazole DR 40 mg Tablet PO (12:04)
[2023-09-10] MEDS: valACYclovir 1,000 mg Tablet 1000 MG PO ×2 (12:04→17:25)
[2023-09-10 12:13] LABS: Albumin Body Fluid 0.7 g/dL; Creatinine Body Fluid 0.73 (0.7-1.2)
[2023-09-10 12:14] LABS: LDH Pleural Fluid 74 U/L; Total Protein Pleural Fluid 0.9 g/dL; Triglycerides, Pleural Fluid 17 mg/dL
[2023-09-10 12:16] LABS: Cyto Order Verification Order Verified
--- NOTE | 2023-09-10 13:05 | PICC.NOTE ---
Single lumen PICC placed to right basilic vein. Referred to vascular access nurse for PICC placement due to need for IV antibiotics x 6 weeks. Risks and benefits discussed with patient and spouse and informed consent obtained. Right arm assessed with right basilic vein measuring 3.4 mm, straight, and apparent best choice for placement. Using sterile technique and MST, right basilic vein accessed x 1 stick. Mid-arm circumference measured 10 cm from right AC 30 cm. Trimmed cath 47 cm with 0 cm external length noted. CXR shows tip in distal SVC, in good position for use per radiologist. Line secured with stat-lock. Insertion site covered with Biopatch and TSM. Report given to bedside nurseNatalia.
--- NOTE | 2023-09-10 13:42 | P.PN_ITS ---
Subjective 2 Subjective: No acute events overnight. Patient has remained hemodynamically stable and afebrile. Underwent thoracentesis of the left lung with removal of 800 cc of fluid. Tolerated the procedure well. Patient states he is feeling better. Oral sores are improving. Denies any nausea, vomiting, headache. Seems a little more energetic. Vitals/I&O/Wt Last Vital Signs Temp 98.1 F 09/10/23 11:37 Pulse 60 09/10/23 11:37 Resp 16 09/10/23 11:37 BP 167/76 09/10/23 12:03 Pulse Ox 94 09/10/23 11:37 O2 Del Method Room Air 09/10/23 11:37 O2 Flow Rate 3 09/06/23 12:46 FiO2 21 09/04/23 06:14 09/09/23 09/10/23 09/10/23 22:59 06:59 14:59 Intake Total 1150 / 2428.75 100 / 2528.75 290 / 290 Output Total 900 / 1150 500 / 1650 800 / 800 Balance 250 / 1278.75 -400 / 878.75 -510 / -510 Weight last 48 hrs Weight 95.963 kg Weight 88.649 kg Physical Exam 2 Narrative: Accompanied by his Const: COMMON NORMALS: patient oriented x3 and alert GENERAL APPEARANCE: c ooperative, comfortable, well kempt, well developed and frail appearing O RIENTATION/CONSCIOUSNESS: Yes awake, Yes oriented to person, Yes oriented to place and Yes oriented to time HENMT: COMMON NORMALS: oropharynx normal Neck/C-Spine: COMMON NORMALS: no JVD Resp: COMMON NORMALS: normal respiratory effort and clear to auscultation bilaterally AUSCULTATION: clear to auscultation bilaterally Cardio: COMMON NORMALS: no JVD, regular rhythm, S1 normal heart sound present, S2 normal heart sound present and No murmurs present (Cardio) RHYTHM: regular rhythm HEART SOUNDS: S1 normal heart sound present and S2 normal heart sound present GI: COMMON NORMALS: Normal to inspection, nondistended, normoactive bowel sounds present, Soft to palpation and non-tender PALPATION: Yes Soft to palpation and Yes Tenderness to palpation present (GI) Extremity: COMMON NORMALS: no joint enlargement and no pedal edema Neuro: COMMON NORMALS: patient oriented x3 and moves all extremities S ENSORIUM/ORIENTATION: Yes alert, Yes oriented to person, Yes oriented to place and Yes oriented to time OTHER: No rigidity, but pain with tilting his head forward. Psych: APPEARANCE: Yes well kempt Skin: COMMON NORMALS: no rashes or lesions noted NARRATIVE SKIN EXAM: Well scabbed vesicular sore present above the left side of the upper lip and below the right side of the lower lip. GENERAL SKIN EXAM: no rashes or lesions noted Urinary Catheter Management: Vickers: Cath Placed During This Visit: yes Reason for Continuing Indwelling Catheter: Acute Urinary Retention or Obstruction Urinary Catheter Date of Insertion: 09/02/23 Urinary Catheter Time of Insertion: 19:00 Data 09/10/23 05:01 09/10/23 05:01 Micro: Microbiology 09/04/23 13:19 Blood Culture - Final Blood NO GROWTH AFTER 5 DAYS 09/04/23 13:16 Blood Culture - Final Blood NO GROWTH AFTER 5 DAYS 09/08/23 10:02 Blood Culture - Preliminary Blood NEGATIVE TO DATE 09/08/23 09:57 Blood Culture - Preliminary Blood NEGATIVE TO DATE A&P Assessment and plan (1) Bacteremia due to Enterococcus: Unclear source. Does have recent history of necrotizing appendicitis followed by TAVR. Repeat blood cultures from 09/03 so far negative. Appreciate sensitivities. Patient continues to have worsening of leukocytosis. Has remained afebrile though. Patient gives history of allergies to penicillin with rash. Note complaints or history of anaphylaxis or difficulty in breathing. He is agreeable to try ampicillin. Continue with IV vancomycin. Monitor troughs. Switch from meropenem to IV ampicillin 2 g every 4 hours. Monitor renal functions. Appreciate GABRIELA results. Plan for repeat TTE today to rule out infective endocarditis. Patient has history of TAVR and pacemaker implantation. Patient is at high risk for endocarditis as per modified Cornell criteria with 1 major (blood culture positive with Enterococcus )and 2 minor criteria (predisposing heart condition including heart valve and pacemaker along with fever of more than 100 Fahrenheit on admission). Patient does have fluid collection at presacral area. Also concerns for enteritis on CT abdomen pelvis. Appreciate surgical recommendations. Patient will need overall at least 4 to 6 weeks of IV antibiotics from 4 set up negative blood cultures. Plan for PICC line placement once repeat blood cultures from 09/03 remain negative for next 24 hours. Worsening leukocytosis is seen. Unclear reason for now. Did complain of diarrhea overnight. Rule out C. difficile. Appreciate CSF studies which ruled out meningitis. CSF cultures negative. Patient does have abdominal collection as seen on CT abdomen/pelvis. Will discuss with surgery again for possible need of I&D versus washout. Antibiotic changes as above. (2) Acute encephalopathy: Most likely resolved. Mostly in setting of sepsis or infection on admission. CSF on admission appreciated. No concerns for meningitis. Unable to perform MRI due to pacemaker. Has a IV contrast allergy. CT of the head unremarkable but with moderate atrophy and volume loss and small vessel disease. (3) Sepsis: Sepsis resolved. 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 It seems patient takes Cardizem 120 mg oral daily at home. Currently rate controlled in 60s without any Cardizem. Will continue to monitor on telemetry. Restart Eliquis. Lumbar puncture has been done. Stop heparin. Status post TAVR Status post laparoscopic appendectomy in June BPH: Restart home dose of dutasteride. Incidentally noted on CT abdomen pelvis CODE STATUS: Limited resuscitation. Again discussed in detail with patient and at bedside. Start on cardiac diet Eliquis will be sufficient for DVT prophylaxis Protonix for PUD prophylaxis Physical deconditioning: Worsening over last few weeks as per the . Patient was not even able to go to bathroom from bed recently with few episodes of dragging himself on the knees. Physical therapy. Plan for the day: No further fevers. Has remained hemodynamically stable. Underwent left-sided thoracentesis with removal of 800 cc. Appreciate fluid studies to be transudative. Follow-up cultures. Appreciate chest x-ray. Stop IV fluids. IV Lasix 40 mg one-time. Replace potassium 40 mg. DC Vickers. Continue with current IV antibiotics. Repeat blood cultures have remained negative. Blood pressure still elevated. Increase dose of losartan to 50 mg daily. PICC line placement today. Plan to continue IV antibiotics for overall 6 weeks from 09/03. Will need weekly CBC, CMP and ESR to be followed by primary care provider. Discharge plan: If remains hemodynamically stable and afebrile will plan to discharge in next 24 hours if blood cultures remain negative. Case management alerted. Patient can be discharged over the weekend as per case management. Discharge medical reconciliation empirically done. Attestations 2 Medical Necessity Statement*: Requires further hospitalization for management of enterococcal bacteremia while source of infection is sought, empyema is ruled out and safe discharge planning with outpatient antibiotics are set up Diagnoses Bacteremia due to Enterococcus R78.81; B95.2 Acute encephalopathy G93.40 Sepsis A41.9 Primary hypertension I10 Hypertension type: primary hypertension Status post transcatheter aortic valve replacement (TAVR) using bioprosthesis Z95.3 Atrial fibrillation, unspecified type I48.91 Atrial fibrillation type: unspecified Physical deconditioning R53.81 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
[2023-09-10] MEDS: FUROsemide 10 mg/mL SDV 4mL 40 MG IVP (14:40)
[2023-09-10] MEDS: potassium chloride ER 20 mEq Tablet 40 MEQ PO (14:43)
[2023-09-10] MEDS: gabapentin 300 mg Capsule PO ×2 (14:43→20:45)
[2023-09-10] MEDS: cefTRIAXone 1,000 MG in sodium chloride 0.9% (plus) 50 ML 100 MG IV (14:44)
[2023-09-10] MEDS: dutasteride 0.5 mg Capsule PO (17:24)
[2023-09-10] MEDS: apixaban 5 mg Tablet PO (17:24)
[2023-09-10] MEDS: trazodone 50 mg Tablet PO (20:45)
[2023-09-11] VITALS (8 sets, daily range): BP systolic 165–176; BP diastolic 65–77; PULSE 59–62; RESP 16–18; TEMP 36.8–37.1; O2SAT 93–94
[2023-09-11] MEDS: ampicillin 2,000 MG in sodium chloride 0.9% (plus) 50 ML 100 MG IV ×3 (03:37→12:59)
[2023-09-11 05:25] LABS: Basophils % 0.2 %; Eosinophils # 0.2 10^3/uL (0.0-0.8); Eosinophils % 0.8 %; Lymphocytes % 44.6 %; Mean Corpuscular HGB Conc 33.3 g/dL (30-55); Mean Corpuscular Hemoglobin 33.6 pg (27-33); Mean Corpuscular Volume 100.9 fl (82-101); Mean Platelet Volume 10.2 fL (7.4-10.4); Monocytes % 4.9 %; Neutrophils # 9.82 10^3/uL (1.8-7.7); Neutrophils % 48.9 %; Nucleated Red Blood Cells % 0 %; Platelet Count 111 10^3/cmm (157-399); Red Blood Count 3.27 10^6/uL (3.85-5.65); Red Cell Distribution Width 14.4 % (12.1-15.1); White Blood Count 20.09 10^3/uL (3.29-11.43)
[2023-09-11 05:41] LABS: Alanine Aminotransferase 48 U/L (0-41); Albumin Level 2.7 g/dL (3.5-5.2); Alkaline Phosphatase 202 U/L (40-130); Aspartate Amino Transferase 40 U/L (0-40); Blood Urea Nitrogen 14 mg/dL (8-23); Calcium 8.3 mg/dL (8.5-10.5); Carbon Dioxide 29 mmol/L (22-29); Chloride 101 mmol/L (98-107); Creatinine Clr Calc Pharmacy 76.8916; Globulin 2.3 g/dL (1.3-4.6); Glucose 98 mg/dL (65-115); Osmolality Calculated 286 mOsm/kg (285-295); Sodium 138 mmol/L (136-145); Total Bilirubin 1.9 mg/dL (0.15-1.2)
[2023-09-11 05:42] LABS: Anion Gap 11.4 (5-19); Potassium 3.4 mmol/L (3.5-5.1)
[2023-09-11 06:24] LABS: SARS Covid-2 Antigen negative (Negative)
[2023-09-11] MEDS: gabapentin 300 mg Capsule PO (09:37)
[2023-09-11] MEDS: pantoprazole DR 40 mg Tablet PO (09:37)
[2023-09-11] MEDS: valACYclovir 1,000 mg Tablet 1000 MG PO (09:37)
[2023-09-11] MEDS: apixaban 5 mg Tablet PO (09:38)
[2023-09-11] MEDS: aspirin 81 mg EC Tablet PO (09:38)
[2023-09-11] MEDS: losartan 50 mg Tablet 25 MG PO (09:38)
[2023-09-11] MEDS: polyethylene glycol 3350 Pkt 17 gm PO (09:39)
[2023-09-11] MEDS: ferrous sulfate EC 325 mg Tablet PO (12:58)
[2023-09-11] MEDS: cyanocobalamin 1,000 mcg Tablet 1000 MCG PO (12:59)
--- NOTE | 2023-09-11 13:46 | PM.DCS ---
Discharge Providers Date of Admission: 09/01/23 13:21 Date of Discharge: September 11, 2023 Attending Provider at Admission: Shamar Lerner Attending Provider at Discharge: Cuong Martínez MD Consults: Surgery: Dr. Vamsi Plasencia Cardiology: Dr. Guerin Primary Care Provider: Shayla Mesa MD Diagnoses at Discharge Discharge Diagnosis (1) Bacteremia due to Enterococcus: Status: Acute (2) Acute encephalopathy: Status: Resolved (3) Sepsis: Status: Acute (4) Hypertension: Status: Acute Qualifiers: Hypertension type: primary hypertension Qualified Code(s): I10 - Essential (primary) hypertension (5) Status post transcatheter aortic valve replacement (TAVR) using bioprosthesis: Status: Acute (6) Afib: Status: Acute Qualifiers: Atrial fibrillation type: unspecified Qualified Code(s): I48.91 - Unspecified atrial fibrillation (7) Physical deconditioning: Status: Acute (8) 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 He came to ER on 08/30 was found to be hypertensive, had some dizziness, headache, some defects in left lower visual field with agatha, flashing lights, was referred to ophthalmology. He returns today to ER due to lethargy/altered mental status, running fever 101 at home. In ER leukocytosis 18.26. He is now more alert, denies headache, denies pain or discomfort. Has mild tenderness in right lower quadrant. CT abdomen pelvis obtained, study compromised by motion. Noted diffuse constipation. Cardiomegaly and aortic replacement. Bilateral perinephric stranding with mild cortical thinning and scarring. Urinalysis unremarkable. Prostate enlargement. Very small pleural effusions. In ER he is febrile one 1.7, WBC 18.26, ABG 7.55/27.9/70.2, lactic acid 4.7, T. bili 1.4, alk phos 202. Gallbladder ultrasound obtained with normal gallbladder, no bile duct dilation, no right renal obstruction. Head CT without intracranial hemorrhage, moderate atrophy and volume loss and small vessel disease. Chest x-ray with hyperinflation, interstitial disease. Hospital Course Hospital Course He was admitted to the hospital for further evaluation and management of severe sepsis along with acute metabolic encephalopathy. He was started on broad-spectrum antibiotics along with IV fluids. On admission respiratory viral panel was negative. There was concern for meningitis for which lumbar puncture was done. CSF studies were consistent with meningitis though CSF cultures remain negative. Patient's blood cultures from admission came back positive for high-grade Enterococcus faecalis. Subsequent blood cultures from 09/03 have remained negative. Patient's mentation gradually improved while being on antibiotics. He continued to have an elevated but stable white count of around 20,000. Because of persistent leukocytosis further workup was done to rule out indolent collection or source of infection. He underwent x-ray shoulders which ruled out any infection, CT lumbar spine which ruled out discitis, CT abdomen pelvis showed stable to improving collection in the right paracolic gutter. C. difficile was ruled out. Cardiology was consulted and patient underwent GABRIELA which ruled out infective endocarditis though he is at a high risk of infective endocarditis as per modified Iredell criteria with 1 major (blood culture positive with Enterococcus )and 2 minor criteria (predisposing heart condition including heart valve and pacemaker along with fever of more than 100 Fahrenheit on admission). He also underwent left sided thoracentesis in which fluid was consistent with transudative study. Fluid cultures have remained negative so far. His antibiotics were tailored as per culture sensitivities. Patient has remained hemodynamically stable and afebrile for overall last 48 hours. PICC line was placed on 09/09. Patient was found to have significant physical deconditioning for which safe discharge plan were discussed in detail with the patient and patient and spouse were interested in transfer to SNF for rehab and completion of IV antibiotics. He has been discharged on IV ampicillin 2 g every 4 hours, ceftriaxone 1 g daily for next 6 weeks from 09/03. He is weekly CBC, CMP and ESR which will be followed by the PCP. He should have a repeat blood culture in 6 weeks. During hospitalization he was found to have slightly elevated blood pressure for which his home dose of losartan was increased. He also was found to have urinary retention for which Vickers was replaced. He is to follow-up with urology as an outpatient. If Vickers catheter remains in place for more than 1 month it should be replaced. Physical Exam Narrative: Accompanied by his Const: COMMON NORMALS: patient oriented x3 and alert GENERAL APPEARANCE: cooperative, comfortable, well kempt, well developed, lethargic (Wakes up to) and frail appearing ORIENTATION/CONSCIOUSNESS: Yes awake, Yes oriented to person, Yes oriented to place, Yes oriented to time and Yes lethargic (Wakes up to) HENMT: COMMON NORMALS: oropharynx normal Neck/C-Spine: COMMON NORMALS: no JVD Resp: COMMON NORMALS: normal respiratory effort and clear to auscultation bilaterally AUSCULTATION: clear to auscultation bilaterally Cardio: COMMON NORMALS: no JVD, regular rhythm, S1 normal heart sound present, S2 normal heart sound present and No murmurs present (Cardio) RHYTHM: regular rhythm HEART SOUNDS: S1 normal heart sound present and S2 normal heart sound present GI: COMMON NORMALS: Normal to inspection, nondistended, normoactive bowel sounds present, Soft to palpation and non-tender PALPATION: Yes Soft to palpation and Yes Tenderness to palpation present (GI) Extremity: COMMON NORMALS: no joint enlargement and no pedal edema Neuro: COMMON NORMALS: patient oriented x3 and moves all extremities SENSORIUM/ORIENTATION: Yes alert, Yes oriented to person, Yes oriented to place, Yes oriented to time and Yes lethargic (Wakes up to) OTHER: No rigidity, but pain with tilting his head forward. Psych: APPEARANCE: Yes well kempt Skin: COMMON NORMALS: no rashes or lesions noted NARRATIVE SKIN EXAM: Well scabbed vesicular sore present above the left side of the upper lip and below the right side of the lower lip. GENERAL SKIN EXAM: no rashes or lesions noted Urinary Catheter Management: Vickers: Cath Placed During This Visit: yes, but has since been removed by the nurse Reason for Continuing Indwelling Catheter: Acute Urinary Retention or Obstruction Urinary Catheter Date of Insertion: 09/10/23 Urinary Catheter Time of Insertion: 17:39 Date Urinary Catheter Removed: 09/10/23 Time Urinary Catheter Discontinued: 14:15 Discharge Data Studies Completed and Pending Completed Studies During Hospitalization Category Date Time Status CT abdomen pelvis w con* [id number] Routine Cat Scan 09/05/23 08:[address] abdomen pelvis wo con [id number] Stat Cat Scan 09/01/23 10:[address] chest abdomen pelvis [CT chest abdpel w/*[id number] Cat Scan 09/08/23 11:37 Completed ] Routine CT head wo con* [id number] Stat Cat Scan 09/01/23 08:[address] lumbar spine w con [id number] Routine Cat Scan 09/08/23 11:35 Completed CXRP [XR chest 1V portable [id number]] Routine Exams 09/10/23 11:57 Completed FL guided lumbarpunc dx* [id number] Routine Exams 09/03/23 00:13 Completed XR chest 1V portable [id number] Stat Exams 09/01/23 07:39 Completed XR chest 1V portable [id number] Stat Exams 09/10/23 10:25 Completed XR shoulder LT min 2V* [id number] Routine Exams 09/08/23 11:35 Completed XR shoulder RT min 2V* [id number] Routine Exams 09/08/23 11:35 Completed CV. echo complete* [id number] Urgent Ultrasound 09/01/23 13:15 Completed CV. echo transesophageal [id number] Routine Ultrasound 09/06/23 06:00 Completed US gall bladder 35013 Stat Ultrasound 09/01/23 10:14 Completed US thoracentesis [id number] Routine Ultrasound 09/10/23 06:00 Completed Pending at discharge Category Date Time Status Amylase, Pleural Fluid Routine Lab 09/10/23 10:50 Received Blood Culture Stat Lab 09/08/23 10:02 Results Body Fluid Culture & GS Routine Lab 09/10/23 10:50 Results Mycobacteria, Culture w/Fluor Routine Lab 09/10/23 10:50 Received Cytology [PTH] Routine Pth 09/10/23 10:55 Received Radiology Impressions Abdomen/Pelvis CT 09/05/23 08:30 IMPRESSION: 1. When compared with recent study from 09/01/2023, there are new fluid collections in the presacral region in the right anterior pelvis. These do not appear to represent organized abscesses at this point in time . The right anterior fluid collection lies adjacent to portions of the colon and small bowel loops . There is mild small bowel wall thickening involving portions of the ileum as well as the duodenum suggesting inflammation/enteritis 2. Negative for free or extraluminal air 3. 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 4. Moderate amount of stool in the colon with a large amount of stool in the rectum worrisome for impending fecal impaction. Mildly dilated small bowel loops may indicate an adynamic ileus. 5. Vickers catheter. Wall thickening bladder 6. Enlarged prostate gland 7. Bilateral inguinal hernias. Bladder extends minimally into the mouth of the right hernia 8. Bilateral renal cortical scarring. Probable cysts both kidneys. Negative for hydronephrosis. New line 9. Interval increase in size of bilateral pleural effusions and increase in bibasilar atelectasis 9. TAVR. Pacemaker. Small pleural effusion. COMMENTS: Consistent with the [employer]'s Incidental Findings Committee white paper (J Am Jorgito Radiol 2018): Any incidental renal lesion less than 1 cm or classified as too small to characterize, or any incidental cystic renal lesion characterized as simple-appearing, is likely benign. No follow-up imaging is recommended for these lesions per consensus recommendations based on imaging criteria. Lumbar Spine CT 09/08/23 11:35 IMPRESSION: No evidence of discitis or osteomyelitis. Shoulder X-Ray 09/08/23 11:35 IMPRESSION: No acute findings. Chest/Abdomen/Pelvis CT 09/08/23 11:37 IMPRESSION: 1. Moderate bilateral pleural effusions slightly increased compared to previous with compressive atelectasis in the lung bases. Cardiomegaly. 2. No evidence of drainable abscess or fluid collection in the pelvis. Trace benign-appearing fluid in the RIGHT pericolic gutter. This is improved compared to previous. 3. Vickers catheter. Enlarged prostate. 4. Gallbladder appears normal. 5. 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 Thoracentesis Ultrasound 09/10/23 06:00 IMPRESSION: 1. Uncomplicated ultrasound-guided LEFT thoracentesis. 2. Compressive atelectasis RIGHT lower lobe. No safe window access to perform RIGHT lower lobe thoracentesis Chest X-Ray 09/10/23 11:57 IMPRESSION: Properly positioned right arm PICC line which was confirmed over the phone with the technologist at 1:05 p.m. Interstitial lung opacities in the right lung appear increased compared to the examination of earlier today. Microbiology 09/10/23 10:50 Pleural Fluid Gram Stain - Final 09/10/23 10:50 Pleural Fluid Body Fluid Culture - Preliminary 09/04/23 13:19 Blood Blood Culture - Final NO GROWTH AFTER 5 DAYS 09/04/23 13:16 Blood Blood Culture - Final NO GROWTH AFTER 5 DAYS 09/08/23 10:02 Blood Blood Culture - Preliminary NEGATIVE TO DATE 09/08/23 09:57 Blood Blood Culture - Preliminary NEGATIVE TO DATE 09/07/23 08:13 Stool Stool Lactoferrin - Final 09/03/23 13:50 Cerebrospinal Fluid Gram Stain - Final 09/03/23 13:50 Cerebrospinal Fluid CSF Culture - Final 09/01/23 10:13 Blood Blood Culture - Final Enterococcus faecalis 09/01/23 10:14 Blood Blood Culture - Final Enterococcus faecalis Laboratory Results WBC 20.09 10^3/uL (3.29-11.43) H 09/11/23 04:52 RBC 3.27 10^6/uL (3.85-5.65) L 09/11/23 04:52 Hgb 11.00 g/dL (11.27-16.99) L 09/11/23 04:52 Hct 33.0 % (37-53) L 09/11/23 04:52 MCV 100.9 fl (82-101) 09/11/23 04:52 MCH 33.6 pg (27-33) H 09/11/23 04:52 MCHC 33.3 g/dL (30-55) 09/11/23 04:52 RDW 14.4 % (12.1-15.1) 09/11/23 04:52 Plt Count 111 10^3/cmm (157-399) L 09/11/23 04:52 MPV 10.2 fL (7.4-10.4) 09/11/23 04:52 Neut % (Auto) 48.9 % 09/11/23 04:52 Lymph % (Auto) 44.6 % 09/11/23 04:52 Hitchcock % (Auto) 4.9 % 09/11/23 04:52 Eos % (Auto) 0.8 % 09/11/23 04:52 Baso % (Auto) 0.2 % 09/11/23 04:52 Neut # (Auto) 9.82 10^3/uL (1.8-7.7) H 09/11/23 04:52 Lymph # (Auto) 9.0 10^3/uL (0.8-4.8) H 09/11/23 04:52 Hitchcock # (Auto) 1.0 10^3/uL (0.2-0.9) H 09/11/23 04:52 Eos # (Auto) 0.2 10^3/uL (0.0-0.8) 09/11/23 04:52 Baso # (Auto) 0.0 10^3/uL (0.0-0.1) 09/11/23 04:52 Nucleated RBC % (auto) 0 % 09/11/23 04:52 Nucleated RBCs # 0.0 /100WBC 09/11/23 04:52 Differential Comment Yes 09/10/23 10:50 ESR 7 mm/hr (0-10) 09/08/23 06:02 PT 20.40 SECONDS (12.1-14.9) H 09/10/23 06:19 INR 1.68 (0.8-1.2) H 09/10/23 06:19 APTT 39.5 SECONDS (23.9-36.7) H 09/10/23 06:19 Specimen Type Arterial 09/01/23 08:50 Sample Site Radial, right 09/01/23 08:50 ABG pH 7.55 (7.35-7.45) H 09/01/23 08:50 ABG pCO2 27.9 mmHg (35-45) L 09/01/23 08:50 ABG pO2 70.2 mmHg (80.0-100.0) L 09/01/23 08:50 ABG PO2/FiO2 Ratio 0 09/01/23 08:50 ABG HCO3 24.1 mmol/L (22-26) 09/01/23 08:50 ABG O2 Saturation 95.9 09/01/23 08:50 ABG Base Excess 2.5 mmol/L (-2.0-2.0) H 09/01/23 08:50 Benjamin Test Pos 09/01/23 08:50 A-a O2 Gradient 5.8 mmHg (5-10) 09/01/23 08:50 Hematocrit 38.9 % (42-52) L 09/01/23 08:50 Hgb O2 Saturation 94.5 % (95-100) L 09/01/23 08:50 Carboxyhemoglobin 1.3 %THgb (0.4-20.1) 09/01/23 08:50 Methemoglobin 0.1 % (0.4-1.5) L 09/01/23 08:50 Total Hemoglobin 12.7 g/dL (14-18) L 09/01/23 08:50 Sodium 132.0 mmol/L (131-143) 09/01/23 08:50 Potassium 3.9 mmol/L (3.5-5.0) 09/01/23 08:50 Glucose 109.0 mg/dL (70-115) 09/01/23 08:50 Ionized Calcium 1.2 mmol/L (1.1-1.4) 09/01/23 08:50 O2 Delivery Device Room air 09/01/23 08:50 FiO2 21.0 % 09/01/23 08:50 Locomotive Crane Operator Helper ID glc 09/01/23 08:50 Sodium 138 mmol/L (136-145) 09/11/23 04:52 Potassium 3.4 mmol/L (3.5-5.1) L 09/11/23 04:52 Chloride 101 mmol/L (98-107) 09/11/23 04:52 Carbon Dioxide 29 mmol/L (22-29) 09/11/23 04:52 Anion Gap 11.4 (5-19) 09/11/23 04:52 BUN 14 mg/dL (8-23) 09/11/23 04:52 Creatinine 0.7 mg/dL (0.7-1.2) 09/11/23 04:52 GFR Calculation Not Reportable 09/11/23 04:52 Glucose 98 mg/dL (65-115) 09/11/23 04:52 POC Glucose 113 mg/dL (70-110) H 09/07/23 13:14 Estimat Average Glucose 111 09/07/23 05:29 Hemoglobin A1c 5.5 % (4.0-6.0) 09/07/23 05:29 Calculated Osmolality 286 mOsm/kg (285-295) 09/11/23 04:52 Lactic Acid 4.7 mmol/L (0.5-2.2) H* 09/01/23 07:45 Lactic Acid (Sepsis) 1.4 mmol/L (0.5-2.2) 09/01/23 10:13 Calcium 8.3 mg/dL (8.5-10.5) L 09/11/23 04:52 Magnesium 2.1 mg/dL (1.7-2.3) 09/09/23 04:46 Iron 34 ug/dL (59-158) L 09/06/23 05:53 TIBC 149 mcg/dl 09/06/23 05:53 % Saturation 22.8 % (20-50) 09/06/23 05:53 Unsat Iron Binding 115 ug/dL (112-347) 09/06/23 05:53 Total Bilirubin 1.9 mg/dL (0.15-1.2) H 09/11/23 04:52 AST 40 U/L (0-40) 09/11/23 04:52 ALT 48 U/L (0-41) H 09/11/23 04:52 Alkaline Phosphatase 202 U/L (40-130) H 09/11/23 04:52 Lactate Dehydrogenase 347 U/L (135-225) H 09/10/23 05:01 Troponin T Baseline 46 ng/L (0-15) H 09/01/23 07:45 Troponin T 120 Minute 50.18 ng/L (0-15) H 09/01/23 10:13 Delta Troponin T 4.18 ABS# (0-10) 09/01/23 10:13 Troponin T Hi Sens 6Hr 54.36 ng/L (0-15) H 09/01/23 13:55 Troponin T Hi Sens 6Hr Delta 8.36 ng/L (0-12) 09/01/23 13:55 C-Reactive Protein 122.7 mg/L (0.0-4.9) H 09/08/23 06:02 Total Protein 5.0 g/dL (6.6-8.7) L 09/11/23 04:52 Albumin 2.7 g/dL (3.5-5.2) L 09/11/23 04:52 Globulin 2.3 g/dL (1.3-4.6) 09/11/23 04:52 Triglycerides 121 mg/dL (0-150) 09/07/23 05:29 Cholesterol 120 mg/dL (0-200) 09/07/23 05:29 LDL Cholesterol, Calc 67 mg/dL (50-129) 09/07/23 05:29 Total VLDL Cholesterol 24 mg/dL (0-30) 09/07/23 05:29 HDL Cholesterol 29 mg/dL (60-100) L 09/07/23 05:29 Cholesterol/HDL Ratio 4.14 mg/dL (1.0-5.00) 09/07/23 05:29 Lipase 21 U/L (13-60) 09/01/23 07:45 Vitamin B12 > 2000 pg/mL (232-1245) H 09/06/23 05:53 Folate 11.7 ng/mL (4.5-32.2) 09/07/23 05:29 Procalcitonin 0.08 ng/mL (0-0.5) 09/06/23 05:53 TSH 1.32 uIU/mL (0.27-4.20) 09/06/23 05:53 Urine Color Yellow (Yellow) 09/01/23 09:36 Urine Appearance Clear (CLEAR) 09/01/23 09:36 Urine pH 8 (5-7) H 09/01/23 09:36 Ur Specific [place] 1.015 (1.005-1.030) 09/01/23 09:36 Urine Protein Neg (Negative) 09/01/23 09:36 Urine Glucose (UA) Norm (Normal) 09/01/23 09:36 Urine Ketones Negative (Negative) 09/01/23 09:36 Urine Blood Neg (Negative) 09/01/23 09:36 Urine Nitrate Negative (Negative) 09/01/23 09:36 Urine Bilirubin Neg (Negative) 09/01/23 09:36 Urine Urobilinogen Norm mg/dL (Negative) 09/01/23 09:36 Ur Leukocyte Esterase Negative (Negative) 09/01/23 09:36 Fluid Color Yellow 09/10/23 10:50 Fluid Appearance Cloudy 09/10/23 10:50 Fluid WBC 130 /uL 09/10/23 10:50 Fluid RBC 3.000 10^3/uL 09/10/23 10:50 Fluid Hematocrit 0.0 % 09/10/23 10:50 Fld Polynuclear WBCs # 0.031 09/10/23 10:50 Fld Polynuclear WBCs % 23.800 % 09/10/23 10:50 Fl Mononucl WBCs #(Auto) 0.099 09/10/23 10:50 Fl Mononuclear % Auto 76.200 % 09/10/23 10:50 Fld Crystal Laterality Not Reportable 09/10/23 10:50 Fluid Albumin 0.7 g/dL 09/10/23 10:50 Fluid Creatinine 0.73 (0.7-1.2) 09/10/23 10:50 CSF Appearance Hazy (CLEAR) 09/03/23 13:50 CSF Color Colorless (COLORLESS) 09/03/23 13:50 CSF WBC 78 /uL (0-5) H 09/03/23 13:50 CSF RBC 0 10^3/uL (0-0) 09/03/23 13:50 CSF Mononuclear # Auto 0.041 10^3/uL (50-90) L 09/03/23 13:50 CSF Mononuclear WBCs % 53 % (50-90) 09/03/23 13:50 CSF Polynuclear WBCs # 0.037 10^3/uL (0-10) 09/03/23 13:50 CSF Polynuclear WBCs % 47 % (0-10) H 09/03/23 13:50 CSF Diff Comment Yes 09/03/23 13:50 CSF Glucose 35 mg/dL (40-70) L 09/03/23 13:50 CSF Total Protein 69 mg/dL (15-45) H 09/03/23 13:50 Pleural pH 9.00 (6.5-7.5) H 09/10/23 10:50 Pleural Total Protein 0.9 g/dL 09/10/23 10:50 Pleural LDH 74 U/L 09/10/23 10:50 Pleural Glucose 100.0 mg/dL 09/10/23 10:50 Pleural Triglycerides 17 mg/dL 09/10/23 10:50 Vancomycin Trough 13.9 ug/mL (10-15) 09/06/23 00:53 Adenovirus (PCR) Not detected (NOT DETECT) 09/01/23 16:14 C. pneumoniae DNA (PCR) Not detected (NOT DETECT) 09/01/23 16:14 C. difficile (PCR) Negative (Negative) 09/07/23 08:13 Coronavirus 229E (PCR) Not detected (NOT DETECT) 09/01/23 16:14 Human Metapneumovir PCR Not detected (NOT DETECT) 09/01/23 16:14 Influenza A (H1) PCR Not detected (NOT DETECT) 09/01/23 16:14 Influ A (H1/09) PCR Not detected (NOT DETECT) 09/01/23 16:14 Influenza A (H3) PCR Not detected (NOT DETECT) 09/01/23 16:14 Influenza Type A (PCR) Not detected (NOT DETECT) 09/01/23 16:14 Influenza Type B (PCR) Not detected (NOT DETECT) 09/01/23 16:14 M. pneumoniae (PCR) Not detected (NOT DETECT) 09/01/23 16:14 Parainfluenza 1 (PCR) Not detected (NOT DETECT) 09/01/23 16:14 Parainfluenza 2 (PCR) Not detected (NOT DETECT) 09/01/23 16:14 Parainfluenza 3 (PCR) Not detected (NOT DETECT) 09/01/23 16:14 Parainfluenza 4 (PCR) Not detected (NOT DETECT) 09/01/23 16:14 RSV Type A (PCR) Not detected (NOT DETECT) 09/01/23 16:14 RSV Type B (PCR) Not detected (NOT DETECT) 09/01/23 16:14 Entero/Rhino (PCR) Not detected (NOT DETECT) 09/01/23 16:14 SARS-CoV-2 (PCR) Not detected (NOT DETECT) 09/01/23 16:14 SARS-CoV-2 Ag (Rapid) negative (Negative) 09/11/23 06:00 Vitals Last Vital Signs Temp 98.2 F 09/11/23 11:48 Pulse 59 L 09/11/23 11:48 Resp 16 09/11/23 11:48 BP 176/65 09/11/23 11:48 Pulse Ox 94 09/11/23 11:48 O2 Del Method Room Air 09/11/23 11:48 O2 Flow Rate 3 09/06/23 12:46 FiO2 21 09/04/23 06:14 Discharge Plan Discharge Patient Disposition: Xfer SNF Condition: Stable Prescriptions: New losartan 50 mg Tablet 50 mg PO DAILY Qty: 30 0RF Continued dutasteride 0.5 mg capsule 0.5 mg PO QPM fluticasone propionate 50 mcg/actuation spray,suspension 2 spray intranasal DAILY PRN (Reason: allergies) Rx Instructions: administer into each nostril loratadine 10 mg tablet 10 mg PO DAILY PRN (Reason: allergies) albuterol sulfate [ProAir HFA] 90 mcg/actuation HFA aerosol inhaler 2 puff inhalation BID PRN (Reason: Shortness Of Breath) aspirin [Adult Low Dose Aspirin] 81 mg tablet,delayed release (DR/EC) 81 mg PO QAM (DME) Custom Molded Copolymer Orthotics and Orthopedic Shoes See Rx Instructions .Route .MEDSUPPLY Qty: 1 0RF Rx Instructions: As directed The [facility] ferrous sulfate [Iron (ferrous sulfate)] 325 mg (65 mg iron) Tablet 325 mg PO DAILY@12 cyclobenzaprine 10 mg Tablet 10 mg PO TID PRN (Reason: Muscle Spasm) clobetasol 0.05 % Cream See Rx Instructions .ROUTE .COMPLEX Rx Instructions: APPLY SPARINGLY TO AFFECTED AREA(S) TOPICALLY TWICE DAILY TO RASH ON HANDS UNTIL RESOLVED NEEDED. DO NOT APPLY TO FACE, GROIN OR SKIN FOLDS. olodaterol 2.5 mcg/actuation Mist 2 inh INHALATION QAM mometasone 200 mcg/actuation Hfa Aerosol Inhaler 1 puff INHALATION BID trazodone 50 mg Tablet 50 mg PO BEDTIME Vitamin B-12 1,000 mcg Tablet 1,000 mcg PO DAILY@12 Vitamin C 500 mg Tablet 500 mg PO DAILY@12 gabapentin 300 mg Capsule 300 mg PO TID montelukast 10 mg Tablet 10 mg PO QPM CoQ-10 100 mg Capsule 100 mg PO QAM Prilosec OTC 20 mg Tablet,Delayed Release (Dr/Ec) 20 mg PO QAM acetylcarnitine HCl 250 mg Capsule 250 mg PO DAILY Vitamin D3 125 mcg (5,000 unit) Tablet 125 mcg PO QAM Romie Mag Zinc Plus D3 333 mg-133 unit -133 mg-5 mg Tablet 1 tab PO BID ashwagandha root extract 500 mg Capsule 500 mg PO DAILY Super R-Lipoic Acid 1 cap PO QAM multivitamin Tablet 1 tab PO QAM vitamin A 2,400 mcg Capsule 2,400 mcg PO DAILY saw palmetto 160 mg Capsule 160 mg PO TID Rx Instructions: give with meal/snack vitamin B complex Capsule 1 cap PO QAM glucosamine-chondroitin [Osteo Bi-Flex] 250-200 mg Tablet 1 tab PO BID Rx Instructions: give after food/meal morning and evening turmeric 400 mg Capsule 400 mg PO BID Eliquis 5 mg tablet 5 mg PO BID potassium gluconate 595 mg (99 mg) Tablet 595 mg PO QPM Discontinued diltiazem HCl 120 mg capsule,extended release 24hr 120 mg PO QAM prednisone 20 mg tablet 40 mg PO DAILY Rx Instructions: FOR 5 DAYS (RX FILLED 08/27/23) Discharge Orders: Discharge Order (Routine); Ordered 09/11/23 Ordered By: Cuong Martínez Other Ambulatory Orders: DME: [employer] (Order) Location: None Selected Ordered By: Shamar Lerner Referrals: [facility] [Outside] [facility] [Occupational Therapist] - 09/22/23 3:30 pm Discharge Diet: Cardiac Discharge Activity: Resume usual activity and Increase activity as tolerated Patient Instructions: Opioid Safety Activity Restrictions/Additional Instructions: Patient is to have IV ampicillin 2 g every 4 hours for next 6 weeks along with ceftriaxone 1 g daily from 09/03 for 6 weeks. He is to have weekly CBC and CMP along with ESR to be followed by PCP. PICC line is to be removed after completion of IV antibiotics. Weekly PICC line dressing changes. Please follow-up with urology as an outpatient. Vickers catheter remains in more than 1 month. Should be replaced. Last changed on 09/09. Cardizem has been stopped. Losartan 50 mg daily has been started. Goal blood pressure less than 140/90 mmHg. Discharge Attestations Time Spent in Discharge Care*: greater than 30 min Specific Discharge Activities: educating patient, educating and/or supporting family/caregiver, discussing with pcp/other providers, discussing with counter caser/social workers/dc planners, documenting/other paperwork and evaluating patient/reviewing data Status at Discharge: Cognitive status at discharge: cognitively intact, Behavioral status at discharge: cooperative, Functional status at discharge: uses cane/walker, Overall status at discharge: patient is progressing back to baseline Quality Metrics Clinical Quality Measures [ No reported AMI, CVA or VTE this stay] Coding Level of Care Code 26821 Total time (in minutes) for Discharge: 70 Diagnoses Bacteremia due to Enterococcus R78.81; B95.2 Acute encephalopathy G93.40 Sepsis A41.9 Primary hypertension I10 Hypertension type: primary hypertension Status post transcatheter aortic valve replacement (TAVR) using bioprosthesis Z95.3 Atrial fibrillation, unspecified type I48.91 Atrial fibrillation type: unspecified Physical deconditioning R53.81 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
--- NOTE | 2023-09-11 14:19 | PC.NURSE ---
This nurse called report to Joyce at [facility]. All questions addressed and answered at this time.
[2023-09-16 21:25] LABS: Amylase, Pleural Fluid <10 U/L
== END 2023-09-11 14:58 | disposition skilled nursing facility (03) | DRG 871 ==
LOC: ER 08:53 → ER IP 13:21 → ICU 18:02 → MEDSURG 09-03 00:48
PROVIDERS: Internal Medicine Cardiovascular Disease; Admitting Provider Internal Medicine; Emergency Provider Family Medicine; PCP Family Medicine; Visit Provider Student in an Organized Health Care Education/Training Program
PROC: B24BZZZ Ultrasonography of Heart with Aorta (ICD-10-PCS; CPT 93312; principal; 2023-09-06 12:30)
DX: A41.9 Sepsis, unspecified organism (principal); G03.9 Meningitis, unspecified; G93.41 Metabolic encephalopathy; I48.20 Chronic atrial fibrillation, unspecified; E87.20 Acidosis, unspecified; R65.20 Severe sepsis without septic shock; K59.00 Constipation, unspecified; I10 Essential (primary) hypertension; B95.2 Enterococcus as the cause of diseases classified elsewhere; B00.1 Herpesviral vesicular dermatitis; M25.512 Pain in left shoulder; M25.511 Pain in right shoulder; N40.0 Benign prostatic hyperplasia without lower urinary tract symptoms; W19.XXXA Unspecified fall, initial encounter; Z79.82 Long term (current) use of aspirin; Z79.01 Long term (current) use of anticoagulants; Z95.0 Presence of cardiac pacemaker; Z95.3 Presence of xenogenic heart valve; Z85.828 Personal history of other malignant neoplasm of skin; Z87.891 Personal history of nicotine dependence; Z88.0 Allergy status to penicillin
CPT/HCPCS: 32555; 36415; 36416; 36573; 51702; 62328; 70450; 71045; 71260; 72132; 73030; 74176; 74177; 76705; 80051; 80053; 80061; 80202; 80503; 81003; 82042; 82150; 82330; 82570; 82607; 82746; 82805; 82945; 82962; 83036; 83540; 83550; 83605; 83615; 83630; 83690; 83735; 83986; 84145; 84157; 84443; 84478; 84484; 85014; 85025; 85610; 85651; 85730; 86140; 87015; 87040; 87070; 87075; 87077; 87116; 87150; 87186; 87205; 87206; 87426; 87486; 87493; 87581; 87633; 87801; 88112; 88305; 89050; 93005; 93306; 93312; 93320; 93325; 94664; 96365; 96367; 96372; 97110; 97116; 97161; 97530; 99285; J0290; J0360; J0696; J1200; J1644; J1940; J2185; J2704; J2919; J3370; J7030; J7050; J7120; J7512; Q0163; Q9967

== ENCOUNTER 2023-09-21 16:08 | Inpatient (IN) | payer OTHER, SELFPAY ==
[2023-09-21] VITALS (10 sets, daily range): BP systolic 113–186; BP diastolic 56–115; PULSE 79–105; RESP 16–28; TEMP 36.8–36.9; O2SAT 91–97; BMI 28.5
--- NOTE | 2023-09-21 16:10 | XRR_ITS ---
PROCEDURE INFORMATION: Exam: XR Chest Exam date and time: 09/21/2023 4:21 PM Age: 87 years old Clinical indication: Cough and dyspnea; Prior surgery; Surgery date: 6+ months; Surgery type: Pacer; Additional info: Dyspnea/cough TECHNIQUE: Imaging protocol: Radiologic exam of the chest. Views: 1 view. COMPARISON: CR XR chest 1V portable [id number] 09/10/2023 1:01 PM FINDINGS: Tubes, catheters and devices: Right-sided PICC line with tip in SVC again noted. Cardiac pacemaker is in place. Lungs: Suboptimal pulmonary expansion with associated accentuation of bronchovascular markings. Interval decrease in right pulmonary airspace and ground-glass opacities . Continued left basilar atelectasis and/or airspace disease accompanied by coarsened reticular and ground-glass opacities. Interval improvement in pulmonary vascular congestion. Pleural spaces: No pleural effusion or pneumothorax. Heart/Mediastinum: Prior AVR. Cardiomediastinal contours accentuated by low lung volumes and AP technique. Bones/joints: No significant pathology. XR/XR chest 1V portable [id number] IMPRESSION: Interval decrease in pulmonary vascular congestion. Interval improved aeration of the right lung continued left basilar abnormalities with indeterminate components of atelectasis and/or airspace disease.
--- NOTE | 2023-09-21 16:20 | ECG_ITS ---
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 Measurements Intervals [place] Rate: 81 P: -55 AL: 171 QRS: -17 QRSD: 164 T: 146 QT: 423 QTc: 493 Interpretive Statements ATRIAL FIBRILLATION LEFT BUNDLE BRANCH BLOCK [120+ ms QRS DURATION, 80+ ms Q/S IN V1/V2, 85+ ms R IN I/aVL/V5/V6] Compared to ECG 09/01/2023 13:51:52 Left bundle-branch block now present Ventricular-paced complex(es) or rhythm no longer present Electronically Signed On 09-21-2023 17:46:54 CDT by Jose Haile M.D. [id number]
--- NOTE | 2023-09-21 16:23 | CTR_ITS ---
PROCEDURE INFORMATION: Exam: CT Head Without Contrast Exam date and time: 09/21/2023 5:34 PM Age: 87 years old Clinical indication: Altered mental status/memory loss; Patient HX: Patient is alert and aware; Additional info: AMS TECHNIQUE: Imaging protocol: Computed tomography of the head without contrast. Radiation optimization: All CT scans at this facility use at least one of these dose optimization techniques: automated exposure control; mA and/or kV adjustment per patient size (includes targeted exams where dose is matched to clinical indication); or iterative reconstruction. COMPARISON: CT head wo con* [id number] 09/01/2023 9:29 AM RADIATION DOSE METRICS: Total DLP (mGy-cm): 1089 FINDINGS: Brain: Moderate cerebral atrophy. Generalized moderate low-attenuation in the white matter most likely representing small vessel ischemic change. No evidence of mass effect, intracranial hemorrhage or extra-axial collection. No acute infarct. Cerebral ventricles: Unremarkable for age. Paranasal sinuses: No significant pathology. Mastoid air cells: Mastoids are within normal limits. Orbital cavities: Orbits are within normal limits. Bones: Unremarkable. No acute fracture. Soft tissues: No significant pathology. CT/CT head wo con* [id number] IMPRESSION: No acute pathology or significant interval change.
--- NOTE | 2023-09-21 16:33 | W.ED.AMS ---
HPI - Altered Mental Status General: Chief Complaint: Altered Mental Status Stated Complaint: Weakness Time Seen by Provider: 09/21/23 16:10 Source: patient Mode of arrival: EMS History of Present Illness: 87-year-old male presents emergency room via EMS with complaints of confusion and disorientation. Patient was hospitalized approximately 3 weeks ago ultimately grew Enterococcus from blood cultures. He was treated with IV antibiotics via PICC line unfortunately on arrival here his MAR is not available so not sure of where he is at regarding these antibiotics. He is unable to tell us. 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 This is something he does do regularly. He is aware he is at the hospital. He is also aware that when he was discharged she was discharged from the hospital during his last hospitalization to [place]. He is unable to give me a lot of details about why he was sent here. He denies chest or abdominal pain. Does have a Vickers replaced. No fever at this time. MD complaint: altered mental status and confusion Onset (ago): minute(s) Severity: moderate Associated symptoms: Deny auditory hallucinations, visual hallucinations, delusions, depression, homicidal ideation, racing thoughts or suicidal ideation Review of Systems Const: Denies: fever(s) or chills Card: Denies: chest pain Resp: Denies: dyspnea GI: Denies: abdominal pain : Denies: dysuria, urinary frequency or urinary urgency Musc: Denies: neck pain or back pain Skin/Breast: Denies: rash Psych: Denies: depression, visual hallucinations, auditory hallucinations, suicidal ideation or homicidal ideation [facility] ED PFSH: Medical History Afib Presence of permanent cardiac pacemaker Severe aortic stenosis History of nonmelanoma skin cancer Pain in right lower leg Lower extremity edema Pacemaker Hypertension Surgical History Status post transcatheter aortic valve replacement (TAVR) using bioprosthesis Status post laparoscopic appendectomy S/P cardiac pacemaker procedure S/P knee surgery S/P vasectomy Family History Mother Myocardial infarction Social History Smoking and tobacco/nicotine status: former use of tobacco/nicotine Alcohol intake: never Substance/Drug Use: never Physical Exam Const: GENERAL APPEARANCE: cooperative and comfortable ORIENTATION/CONSCIOUSNESS: Yes awake HENMT: COMMON NORMALS: normocephalic, atraumatic and hearing grossly normal bilaterally HEAD & SCALP: normocephalic and atraumatic Resp: COMMON NORMALS: normal respiratory effort, No retractions, No use of accessory muscles and clear to auscultation bilaterally AUSCULTATION: clear to auscultation bilaterally Cardio: COMMON NORMALS: regular rate, regular rhythm and No murmurs present (Cardio) RATE: regular rate RHYTHM: regular rhythm GI: COMMON NORMALS: Soft to palpation and No hepatosplenomegaly present AUSCULTATION: Yes normoactive bowel sounds PALPATION: Yes Soft to palpation, No Tenderness to palpation present (GI), No Guarding due to palpation present (GI) and Yes No hepatosplenomegaly present Extremity: COMMON NORMALS: normal to inspection, capillary refill normal, no clubbing, cyanosis or edema, no calf tenderness and no pedal edema Psych: THOUGHT CONTENT: No delusions Skin: COMMON NORMALS: no rashes or lesions noted GENERAL SKIN EXAM: no rashes or lesions noted Course Vital Signs: Vital signs: Vital Signs Temperature 98.2 F 09/21/23 16:09 Pulse Rate 104 H 09/21/23 20:21 Respiratory Rate 25 H 09/21/23 20:21 Blood Pressure 138/115 09/21/23 20:21 Pulse Oximetry 93 09/21/23 20:21 Oxygen Delivery Me thod Room Air 09/21/23 19:26 MDM - Altered Mental Status Medical Decision Making Patient has a fairly complicated history recently hospitalized [place] Enterococcus he is on ampicillin and ceftriaxone for 6 months looks like he has a secondary bladder infection now. We did confirm his dosage and timing and gave him ampicillin dose it was 1 hour late compared to the 4-hour timing due to the logistics of getting the records from the shelter. He also is encephalopathic he is very confused and disoriented. Finally his troponin is slightly elevated above his baseline his second troponin is positive delta of 8 he has been started on anticoagulation his EKG did not show any acute changes. Will admit discussed with the hospitalist orders written Medical Records I reviewed the patient's medical records. Lab Data I reviewed the patient's lab results. 09/21/23 16:50 09/21/23 16:50 Radiology Impressions Chest X-Ray 09/21/23 16:10 IMPRESSION: Interval decrease in pulmonary vascular congestion. Interval improved aeration of the right lung continued left basilar abnormalities with indeterminate components of atelectasis and/or airspace disease. Head CT 09/21/23 16:23 IMPRESSION: No acute pathology or significant interval change. Laboratory Results WBC 19.30 10^3/uL (3.29-11.43) H 09/21/23 16:50 RBC 3.37 10^6/uL (3.85-5.65) L 09/21/23 16:50 Hgb 11.50 g/dL (11.27-16.99) 09/21/23 16:50 Hct 35.2 % (37-53) L 09/21/23 16:50 MCV 104.5 fl (82-101) H 09/21/23 16:50 MCH 34.1 pg (27-33) H 09/21/23 16:50 MCHC 32.7 g/dL (30-55) 09/21/23 16:50 RDW 16.2 % (12.1-15.1) H 09/21/23 16:50 Plt Count 171 10^3/cmm (157-399) 09/21/23 16:50 MPV 10.2 fL (7.4-10.4) 09/21/23 16:50 Neut % (Auto) 44.8 % 09/21/23 16:50 Lymph % (Auto) 48.9 % 09/21/23 16:50 [place] % (Auto) 4.4 % 09/21/23 16:50 Eos % (Auto) 1.0 % 09/21/23 16:50 Baso % (Auto) 0.4 % 09/21/23 16:50 Neut # (Auto) 8.65 10^3/uL (1.8-7.7) H 09/21/23 16:50 Lymph # (Auto) 9.4 10^3/uL (0.8-4.8) H 09/21/23 16:50 [place] # (Auto) 0.8 10^3/uL (0.2-0.9) 09/21/23 16:50 Eos # (Auto) 0.2 10^3/uL (0.0-0.8) 09/21/23 16:50 Baso # (Auto) 0.1 10^3/uL (0.0-0.1) 09/21/23 16:50 Nucleated RBC % (auto) 0 % 09/21/23 16:50 Nucleated RBCs # 0.0 /100WBC 09/21/23 16:50 Sodium 139 mmol/L (136-145) 09/21/23 16:50 Potassium 3.2 mmol/L (3.5-5.1) L 09/21/23 16:50 Chloride 103 mmol/L (98-107) 09/21/23 16:50 Carbon Dioxide 27 mmol/L (22-29) 09/21/23 16:50 Anion Gap 12.2 (5-19) 09/21/23 16:50 BUN 10 mg/dL (8-23) 09/21/23 16:50 Creatinine 0.7 mg/dL (0.7-1.2) 09/21/23 16:50 GFR Calculation Not Reportable 09/21/23 16:50 Glucose 121 mg/dL (65-115) H 09/21/23 16:50 Calculated Osmolality 288 mOsm/kg (285-295) 09/21/23 16:50 Lactic Acid 1.6 mmol/L (0.5-2.2) 09/21/23 16:50 Calcium 8.3 mg/dL (8.5-10.5) L 09/21/23 16:50 Total Bilirubin 1.7 mg/dL (0.15-1.2) H 09/21/23 16:50 AST 35 U/L (0-40) 09/21/23 16:50 ALT 27 U/L (0-41) 09/21/23 16:50 Alkaline Phosphatase 269 U/L (40-130) H 09/21/23 16:50 Troponin T Baseline 112 ng/L (0-15) H* 09/21/23 16:50 Troponin T 120 Minute 120.0 ng/L (0-15) H 09/21/23 19:02 Delta Troponin T 8.0 ABS# (0-10) 09/21/23 19:02 Total Protein 5.8 g/dL (6.6-8.7) L 09/21/23 16:50 Albumin 3.1 g/dL (3.5-5.2) L 09/21/23 16:50 Globulin 2.7 g/dL (1.3-4.6) 09/21/23 16:50 Urine Color Dark yellow (Yellow) 09/21/23 18:20 Urine Appearance Cloudy (CLEAR) A 09/21/23 18:20 Urine pH 6 (5-7) 09/21/23 18:20 Ur Specific [place] 1.015 (1.005-1.030) 09/21/23 18:20 Urine Protein 1+ (Negative) H 09/21/23 18:20 Urine Glucose (UA) Norm (Normal) 09/21/23 18:20 Urine Ketones Negative (Negative) 09/21/23 18:20 Urine Blood 3+ (Negative) H 09/21/23 18:20 Urine Nitrate Negative (Negative) 09/21/23 18:20 Urine Bilirubin Neg (Negative) 09/21/23 18:20 Urine Urobilinogen Norm mg/dL (Negative) 09/21/23 18:20 Ur Leukocyte Esterase 2+ (Negative) H 09/21/23 18:20 Urine RBC >100 /hpf (0-2) H 09/21/23 18:20 Urine WBC >100 /hpf (0-5) H 09/21/23 18:20 Ur Squamous Epith Cells Rare /hpf (0-5) 09/21/23 18:20 Amorphous Sediment Not Reportable 09/21/23 18:20 Urine Bacteria Trace /hpf (NONE) 09/21/23 18:20 Urine Mucus Trace /hpf 09/21/23 18:20 Urine Yeast 4+ /hpf H 09/21/23 18:20 All radiology interpretation(s) finalized by discharge Discharge Plan Discharge Patient Disposition: Admitted As Inpatient Admit Provider: Catina Maciel Clinical Impression: Sepsis, Bacteremia due to Enterococcus, Cystitis, Urinary retention, Hypokalemia, Elevated bilirubin Condition: Stable Coding Level of Care Code ED Schedule Supervisor for Ishan Kendall
--- NOTE | 2023-09-21 16:36 | PC.PHAR ---
[facility]
[2023-09-21 17:09] LABS: Basophils # 0.1 10^3/uL (0.0-0.1); Basophils % 0.4 %; Eosinophils # 0.2 10^3/uL (0.0-0.8); Hematocrit 35.2 % (37-53); Lymphocytes # 9.4 10^3/uL (0.8-4.8); Lymphocytes % 48.9 %; Mean Corpuscular HGB Conc 32.7 g/dL (30-55); Mean Corpuscular Hemoglobin 34.1 pg (27-33); Mean Corpuscular Volume 104.5 fl (82-101); Mean Platelet Volume 10.2 fL (7.4-10.4); Monocytes # 0.8 10^3/uL (0.2-0.9); Monocytes % 4.4 %; Neutrophils # 8.65 10^3/uL (1.8-7.7); Neutrophils % 44.8 %; Nucleated Red Blood Cells % 0 %; Platelet Count 171 10^3/cmm (157-399); Red Blood Count 3.37 10^6/uL (3.85-5.65); Red Cell Distribution Width 16.2 % (12.1-15.1)
[2023-09-21 17:29] LABS: Alanine Aminotransferase 27 U/L (0-41); Albumin Level 3.1 g/dL (3.5-5.2); Alkaline Phosphatase 269 U/L (40-130); Anion Gap 12.2 (5-19); Aspartate Amino Transferase 35 U/L (0-40); Blood Urea Nitrogen 10 mg/dL (8-23); Calcium 8.3 mg/dL (8.5-10.5); Carbon Dioxide 27 mmol/L (22-29); Chloride 103 mmol/L (98-107); Creatinine Clr Calc Pharmacy 75.7959; Globulin 2.7 g/dL (1.3-4.6); Glucose 121 mg/dL (65-115); Osmolality Calculated 288 mOsm/kg (285-295); Potassium 3.2 mmol/L (3.5-5.1); Sodium 139 mmol/L (136-145); Total Bilirubin 1.7 mg/dL (0.15-1.2); Total Protein 5.8 g/dL (6.6-8.7); Troponin(5th) Baseline 112 ng/L (0-15)
[2023-09-21 17:58] LABS: Slide Review Slide Review Perform
--- NOTE | 2023-09-21 18:23 | ECG_ITS ---
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 Measurements Intervals [place] Rate: 85 P: 0 SD: 0 QRS: -60 QRSD: 172 T: 125 QT: 422 QTc: 505 Interpretive Statements ATRIAL FIBRILLATION LEFT AXIS DEVIATION [QRS AXIS < -30] LEFT BUNDLE BRANCH BLOCK [120+ ms QRS DURATION, 80+ ms Q/S IN V1/V2, 85+ ms R IN I/aVL/V5/V6] Compared to ECG 09/21/2023 16:20:41 Left-axis deviation now present Electronically Signed On 09-22-2023 16:29:48 CDT by Jose Haile M.D. [id number]
[2023-09-21 18:53] LABS: Add Urine Microscopic? YES; Bilirubin Urine Neg (Negative); Blood Urine 3+ (Negative); Glucose Urine UA Norm (Normal); Ketones Urine Negative (Negative); Leukocyte Esterase Urine 2+ (Negative); Nitrate Urine Negative (Negative); Protein Urine 1+ (Negative); Specific Gravity, Urine 1.015 (1.005-1.030); Urine Appearance Cloudy (CLEAR); Urine Color Dark Yellow (Yellow); Urobilinogen Urine Norm (Negative); pH Urine 6 (5-7)
[2023-09-21 18:56] LABS: Add Urine Culture? Yes; Bacteria Urine TRACE /hpf; Mucus Urine TRACE /hpf; RBC Urine >100 /hpf (0-2); Squamous Epithelial Cell Urine RARE /hpf (0-5); WBC Urine >100 /hpf (0-5)
--- NOTE | 2023-09-21 19:01 | PC.NURSE ---
[facility] AND SPOKE WITH JASPER NURSE. DR LAWTON VERBALIZED NEED FOR [facility] AND PAPERWORK. I CALLED [facility] TWICE AND THEY STATED THEY WOULD SEND OVER MAR WITH PAPERWORK. AT 1850 CONTACTED [facility] AGAIN AND STATED THEY WOULD SEND OVER PAPERWORK. AWAITING PAPERWORK AT THIS TIME.
--- OUTSIDE RECORDS SUMMARY | 2023-09-21 19:28 | XMS_ITS | Patient Health Record ---
Author Name Unknown Organization [facility], [facility] Address [address] [place] [address] Care Team Providers Care Hair Stylist Name Role Phone HAILEE PEÑALOZA Unavailable [phone] MARCUS MARIN Unavailable [phone] Allergies Allergen (clinical drug ingredient) Drug/Non Drug Allergy documented on EMR Reaction Allergy Type Onset Date Status amoxicillin Amoxicillin Unknown Drug Allergy Act eliel Iodinated contrast media (substance) Iodinated Diagnostic Agents rash Drug Allergy Active Substance with sulfonamide structure and antibacterial mechanism of action (substance) Sulfa Antibiotics Unknown Drug Allergy Active Results Component Value Reference Range Notes Bladder scan Reviewed date:07/27/2023 10:41:12 AM Interpretation: Performing Lab: Notes/Report: Urinalysis, Routine Reviewed date:07/27/2023 10:19:51 AM Interpretation: Performing Lab: Notes/Report: Urine-Color yellow Appearance clear Glucose - Bilirubin - Ketones - Specific [place] 1.010 Occult Blood - pH 7.0 Urine Protein - Urobilinogen,Semi-Qn - Nitrite, Urine - WBC Esterase - Reason For Referral No Information Medications Medication SIG (Take, Route, Frequency, Duration) Notes Start Date End Date Status Dutasteride 0.5 MG 1 capsule Orally Onc e a day Unknown Gabapentin 300 MG 1 capsule Orally Onc e a day Unknown Co Q 10 100 MG as directed Orally Unknown traZODone HCl 50 MG 1 tablet at bedtime as needed Orally Once a day Unknown Multivitamin - 1 tablet Orally Once a day Unknown Vitamin A 2400 MCG (8000 UT) as directed Orally Unknown dilTIAZem HCl 120 MG as directed Orally Unknown Potassium 99 MG 1 tablet Orally Once a day Unknown Aspirin 81 MG 1 tablet Orally Once a day Unknown Ashwagandha 300 MG as directed Orally Unknown Osteo Bi-Flex Triple Strength - as directed Orally Unknown Acetyl L-Carnitine U nknown Saw [place] 450 MG as directed Orally Unknown Vitamin B Complex - as directed Orally Unknown Calcium Magnesium Zinc 333-133-5 MG 1 tablet with meals Orally Three times a day Unknown Turmeric 500 MG as directed Orally Unknown Vitamin D3 25 MCG (1000 UT) 1 capsule Or ally Once a day Unknown Omeprazole 20 MG 1 capsule 30 minutes before morning meal Orally Once a day Unknown Montelukast Sodium 10 MG 1 tablet Orally Once a day Unknown Fluticasone Propionate 50 MCG/ACT 1 spray in each nostril Nasally Once a day Unknown Warfarin Sodium 3 MG 1 tablet Orally Onc e a day Unknown Stiolto Respimat 2.5-2.5 MCG/ACT 2 puffs Inhalation Once a day Unknown Social History Tobacco Use: Social History Observation Description Date Details (start date - stop date) Never Smoker NA - NA Tobacco Control (Standard) Question Answer Notes Tobacco use: Nonsmoker Problems Problem Type SNOMED Code ICD Code Onset Dates Problem Status W/U Status Risk Notes Problem Lower urinary tract symptoms due to benign prostatic hypertrophy (90243788082069) 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) Active confirmed Problem Benign prostatic hyperplasia (379439727) BPH (benign prostatic hyperplasia) (N40.0) Active confirmed Vital Signs Heart Rate 69 /min 07/27/2023 Temperature 97 degrees Fahrenheit 07/27/2023 Height-cm 180.34 cm 07/27/2023 Blood pressure diastolic 70 mm Hg 07/27/2023 Weight-kg 85.28 kg 07/27/2023 Height 71 in 07/27/2023 Blood pressure systolic 133 mm Hg 07/27/2023 Weight 188 lbs 07/27/2023 BMI 26.22 kg/m2 07/27/2023 Procedures Procedure Date Ordered Date Performed Result Body Sit e Voiding Trial 06/29/2023 06/29/2023 N/A Encounters Encounter Location Date Provider Diagnosis [facility] [place] [address] [place] [address] 06/29/2023 HAILEE PEÑALOZA Acute urinary retention R33.8 ; Benign localized hyperplasia of prostate with urinary obstruction N40.1 and Catheter (urine) change required Z46.6 [facility], [place] [place] [address] 07/27/2023 HAILEE PEÑALOZA Benign localized hyperplasia of prostate with urinary obstruction N40.1 ; History of urinary retention Z87.898 and Excessive urination at night R35.1 [facility] [address] [place] [address] 06/25/2023 MARCUS MARIN Assessments Encounter Date Diagnosis (ICD Code) Assessment Notes Treatment Notes Treatment Clinical Notes 06/29/2023 Acute urinary retention (ICD-10 - R33.8) 07/27/2023 Benign localized hyperplasia of prostate with urinary obstruction (ICD-10 - N40.1) Pt doing well after ritchie removal. He has no bother from LUTS after stopping tamsulosin and remaining on dutasteride monotherapy. UA clear. Emptying well. Will have him RTC in 1 year with FR/PVR or sooner if needed. 07/27/2023 History of urinary retention (ICD-10 - Z87.898) 06/29/2023 Benign localized hyperplasia of prostate with urinary obstruction (ICD-10 - N40.1) 06/29/2023 Catheter (urine) change required (ICD-10 - Z46.6) 07/27/2023 Excessive urination at night (ICD-10 - R35.1) Plan Of Treatment Next Appt Details Provider Name:HAILEE RIVERO LULA, 08/01/2024 11:00:00 AM, [address] [place], [address], Insurance Providers Payer Name Payer Address Payer Phone Subscriber Number Group Number Insured Name Patient Relationship to Insured Coverage Start Date Coverage End Date [employer] [address] [place], [place] [id number] Eddy Miner Self - patient is the insured Medical (General) History Medical History History ICD Code skin cancer asthma arhtritis Surgical History Surgery Date(Month/Year) cardiac pacemaker placement knee surgery vasectomy
--- NOTE | 2023-09-21 19:29 | PC.NURSE ---
Blood pressure documentation Pt had bp of 113/56 in chart which was entered in error by prior nursing staff.
[2023-09-21 19:35] LABS: Lactic Sepsis W/Reflex 1.6 mmol/L (0.5-2.2)
--- NOTE | 2023-09-21 20:20 | CTR_ITS ---
PROCEDURE INFORMATION: Exam: CT Abdomen And Pelvis Without Contrast Exam date and time: 09/22/2023 12:52 AM Age: 87 years old Clinical indication: Other: UTI; Prior surgery; Surgery date: 6+ months; Surgery type: Appy; Additional info: UTI, R/O obstructive uropathy TECHNIQUE: Imaging protocol: Computed tomography of the abdomen and pelvis without contrast. Radiation optimization: All CT scans at this facility use at least one of these dose optimization techniques: automated exposure control; mA and/or kV adjustment per patient size (includes targeted exams where dose is matched to clinical indication); or iterative reconstruction. COMPARISON: CT chest abdpel w/*[id number] 09/08/2023 2:07 PM RADIATION DOSE METRICS: Total DLP (mGy-cm): 756.9 FINDINGS: Lungs: Mild probable atelectasis in the lower lungs, pneumonitis not excluded. The appearance is similar to the prior exam. There are again large bilateral pleural effusions, similar to the prior exam. Heart: Small pericardial effusion, not significantly changed. Coronary arteries: Prominent coronary artery calcifications noted. Evidence for prior aortic valve replacement. Liver: Unremarkable. Gallbladder and bile ducts: No visible gallstones by CT. No biliary tree dilation. Pancreas: Partial fatty replacement of the pancreas, unchanged. Spleen: There are again nonspecific low-attenuation areas involving the anterior aspect of the spleen. These could represent splenic infarcts. These were better visualized on the prior postcontrast exam. Adrenal glands: Unremarkable. Kidneys and ureters: No hydronephrosis of either kidney. No visible renal or ureteral calculus. Areas of probable parenchymal scarring involving both kidneys, unchanged. Stable small probable renal cysts, too small to accurately characterize by CT. Mild perinephric stranding bilaterally, not significantly changed. This is a nonspecific appearance and could well be chronic. Possibility of pyelonephritis should also be considered, please correlate clinically. Stomach and bowel: No significant bowel distention. There are no CT findings to strongly suggest diverticulitis. Appendix: Reportedly, there has been prior appendectomy. Intraperitoneal space: No free intraperitoneal air, or generalized ascites. Vasculature: Moderate aortic and other vascular calcifications. No evidence for abdominal aortic aneurysm. Lymph nodes: No significant retroperitoneal adenopathy. Urinary bladder: Vickers catheter in the urinary bladder. Suspect some diffuse urinary bladder wall thickening. Evaluation is limited, as the bladder is essentially empty. This may be related to the prostate enlargement and chronic partial outlet obstruction. While nonspecific, this could also indicate evidence for cystitis. Please correlate clinically. Reproductive: Prostate enlargement with transverse diameter of 5.5 cm. Correlation with PSA levels may be useful to help exclude prostate malignancy. Bones/joints: Small amount of fluid in the posterior lower pelvis, not significantly changed. Soft tissues: Small bilateral inguinal hernias, containing no bowel, not significantly changed. CT/CT abdomen pelvis wo con [id number] IMPRESSION: 1. No hydronephrosis of either kidney. No visible renal or ureteral calculus. 2. Mild perinephric stranding bilaterally, see above discussion. 3. Prostate enlargement and suspected urinary bladder wall thickening, see above. 4. No free air or significant bowel distention. 5. Small amount of fluid in the posterior lower pelvis, not significantly changed. 6. Large bilateral pleural effusions and mild lower lung opacities, see above. 7. Small pericardial effusion. 8. Other findings discussed above.
--- NOTE | 2023-09-21 20:30 | PM.HP ---
Providers/Chief Complaint Admitting Physician: Catina Maciel MD Primary Care Provider: Shayla Mesa MD Chief Complaint: Weakness History of Present Illness Eddy Miner is a 87 year old male recent history of appendicitis requiring laparoscopic appendectomy, recent history of TAVR, recent history of Enterococcus bacteremia, etiology unclear on Rocephin and ampicillin, Vickers catheter in place, atrial fibrillation, pacemaker placement, on Eliquis therapy, who presents [facility] due to altered mental status. Currently patient alert to person, not to place, to time he thinks he is at the assisted, he can follow commands, he is able to use my fingers bilaterally, wiggle his toes able to smile for me, he denies any complaints, no chest pain, no shortness of breath, no abdominal pain, no fevers, he was hypertensive in the emergency room, pulse 104, respiratory rate 25, temperature 98.2, 93% on room air, no facial droop, no slurring of his words, cannot discern any focal weakness on examination, Review of Systems Const: Denies: fever(s) Card: Denies: chest pain Resp: Denies: dyspnea GI: Denies: abdominal pain Medications/Allergies Home Medications Medication Instructions Recorded Confirmed Last Taken Type dutasteride 0.5 mg capsule 0.5 mg PO QPM 07/10/20 09/21/23 09/20/23 History multivitamin 1 tab PO QAM 01/24/22 09/21/23 09/21/23 History saw palmetto 160 mg capsule 160 mg PO TID 01/24/22 09/21/23 09/21/23 History turmeric 400 mg capsule 400 mg PO BID 01/24/22 09/21/23 09/21/23 History aspirin 81 mg tablet,delayed 81 mg PO QAM 02/25/22 09/21/23 09/21/23 History release (Adult Low Dose Aspirin) fluticasone propionate 50 2 spray intranasal DAILY PRN 09/01/22 09/21/23 06/22/23 07:00 History mcg/actuation nasal allergies spray,suspension loratadine 10 mg tablet 10 mg PO DAILY PRN allergies 09/01/22 09/21/23 09/21/23 History Custom Molded Copolymer Orthotics #1 ea 12/28/22 09/21/23 Unknown Rx and Orthopedic Shoes albuterol sulfate 90 mcg/actuation 2 puff inhalation BID PRN 03/02/23 09/21/23 09/21/23 History aerosol inhaler (ProAir HFA) Shortness Of Breath clobetasol 0.05 % topical cream See Rx Instructions .Route .COMPLEX 06/23/23 09/21/23 09/21/23 History cyclobenzaprine 10 mg tablet 10 mg PO TID PRN Muscle Spasm 06/23/23 09/21/23 09/01/23 03:30 History ferrous sulfate 325 mg (65 mg 325 mg PO DAILY 06/23/23 09/21/23 09/21/23 History iron) tablet (Iron (ferrous sulfate)) mometasone 200 mcg/actuation HFA 1 puff inhalation BID 06/23/23 09/21/23 09/21/23 History aerosol inhaler olodaterol 2.5 mcg/actuation mist 2 inh inhalation QAM 06/23/23 09/21/23 09/21/23 History for inhalation apixaban 5 mg tablet (Eliquis) 5 mg PO BID 08/19/23 09/21/23 09/21/23 History potassium gluconate 595 mg (99 mg) 595 mg PO QPM 08/19/23 09/21/23 09/20/23 History tablet ascorbic acid (vitamin C) 500 mg 500 mg PO DAILY 09/01/23 09/21/23 09/21/23 History tablet (Vitamin C) ashwagandha root extract 500 mg 500 mg PO DAILY 09/01/23 09/21/23 09/21/23 History capsule calcium carb 333 mg-vit D3 133 1 tab PO BID 09/01/23 09/21/23 09/21/23 History unit-mag ox 133 mg-zinc oxide 5 mg tab (Romie Mag Zinc Plus D3) coenzyme Q10 100 mg capsule 100 mg PO QAM 09/01/23 09/21/23 09/21/23 History (CoQ-10) cyanocobalamin (vitamin B-12) 1,000 mcg PO DAILY 09/01/23 09/21/23 09/21/23 History 1,000 mcg tablet (Vitamin B-12) gabapentin 300 mg capsule 300 mg PO TID 09/01/23 09/21/23 09/21/23 History montelukast 10 mg tablet 10 mg PO QPM 09/01/23 09/21/23 09/20/23 History omeprazole magnesium 20 mg 20 mg PO QAM 09/01/23 09/21/23 09/21/23 History tablet,delayed release (Prilosec OTC) trazodone 50 mg tablet 50 mg PO BEDTIME 09/01/23 09/21/23 09/20/23 History losartan 50 mg tablet 50 mg PO DAILY #30 tabs 09/10/23 09/21/23 09/21/23 Rx ampicillin sodium 2 gram 2 g IV Q4H 09/21/23 09/21/23 09/21/23 History intravenous solution bisacodyl 10 mg rectal suppository 10 mg MS DAILY PRN Constipation 09/21/23 09/21/23 Unknown History (Dulcolax (bisacodyl)) ceftriaxone 1 gram intravenous 1 g IV Q24H 09/21/23 09/21/23 09/21/23 History solution cholecalciferol (vitamin D3) 25 25 mcg PO DAILY 09/21/23 09/21/23 09/21/23 History mcg (1,000 unit) tablet magnesium hydroxide 400 mg/5 mL 30 ml PO DAILY PRN Constipation 09/21/23 09/21/23 Unknown History oral suspension (Milk of Magnesia) polyethylene glycol 3350 17 17 g PO DAILY 09/21/23 09/21/23 Unknown History gram/dose oral powder (Miralax) sodium chloride 0.9 % See Rx Instructions .Route .COMPLEX 09/21/23 09/21/23 09/21/23 History sodium phosphates 19 gram-7 118 ml MS DAILY PRN Constipation 09/21/23 09/21/23 Unknown History gram/118 mL enema (Fleet Enema) Allergies Allergy/AdvReac Type Severity Reaction Status Date / Time Sulfa (Sulfonamide Allergy Unknown unknown Verified 08/23/23 10:20 Antibiotics) amlodipine Allergy Unknown Verified 08/31/23 16:10 amoxicillin Allergy ALGY-Rash Verified 08/23/23 10:20 Iodinated Contrast Media Allergy Unknown Verified 08/23/23 10:20 PFSH Acute PFSH: Medical History Afib Presence of permanent cardiac pacemaker Severe aortic stenosis History of nonmelanoma skin cancer Pain in right lower leg Lower extremity edema Pacemaker Hypertension Surgical History Status post transcatheter aortic valve replacement (TAVR) using bioprosthesis Status post laparoscopic appendectomy S/P cardiac pacemaker procedure S/P knee surgery S/P vasectomy Family History Mother Myocardial infarction Social History Smoking and tobacco/nicotine status: former use of tobacco/nicotine Alcohol intake: never Substance/Drug Use: never Vitals/I&O/Wt Last Vital Signs Temp 98.2 F 09/21/23 16:09 Pulse 104 H 09/21/23 20:21 Resp 25 H 09/21/23 20:21 BP 138/115 09/21/23 20:21 Pulse Ox 93 09/21/23 20:21 O2 Del Method Room Air 09/21/23 19:26 Weight last 48 hrs Weight 92.986 kg Physical Exam Const: COMMON NORMALS: no acute distress HENMT: COMMON NORMALS: normocephalic HEAD & SCALP: normocephalic Eye: COMMON NORMALS: Equal, round and reactive pupils present and EOMs intact bilaterally Neck/C-Spine: COMMON NORMALS: no JVD Resp: COMMON NORMALS: normal respiratory effort, No retractions, No use of accessory muscles and clear to auscultation bilaterally AUSCULTATION: clear to auscultation bilaterally Cardio: COMMON NORMALS: regular rate, regular rhythm, S1 normal heart sound present and S2 normal heart sound present RATE: regular rate RHYTHM: regular rhythm HEART SOUNDS: S1 normal heart sound present and S2 normal heart sound present GI: COMMON NORMALS: Normal to inspection, nondistended, normoactive bowel sounds present, Soft to palpation and non-tender Extremity: COMMON NORMALS: no calf tenderness and no pedal edema Neuro: OTHER: Can follow simple neurologic testing able to smile for me, squeeze my fingers bilaterally, wiggles toes, alert to person, not to place, not to time currently thinks he is at the assisted Psych: COMMON NORMALS: mental status grossly normal Sepsis: Is patient septic: Yes Focused sepsis exam performed: Yes Focused sepsis exam: DP PT pulses greater palpable, cap refill less than 2 seconds, no mottling Date exam was performed: 09/21/23 Time exam was performed: 20:00 Data 09/21/23 16:50 09/21/23 16:50 Micro: Microbiology 09/21/23 17:54 Blood Culture - Preliminary Blood SPECIMEN COLLECTED 09/21/23 16:50 Blood Culture - Preliminary Blood SPECIMEN COLLECTED A&P Assessment and plan (1) Acute encephalopathy: (2) UTI (urinary tract infection): (3) NSTEMI (non-ST elevated myocardial infarction): (4) Sepsis: Plan Acute encephalopathy ? Likely secondary to UTI, sepsis ? Neurochecks, any stroke scale, aspiration precautions Complicated urinary tract infection, ? Likely associated with Vickers catheter ? While being on Rocephin, ampicillin ? Indicates multidrug-resistant organism, especially as he is at the [facility] ? Plan ? Remove Vickers catheter, culture tip, placement of Vickers catheter ? Urine cultures ? Blood cultures ? Cover for ESBL start meropenem ? Start vancomycin ? CT scan abdomen pelvis with IV contrast Sepsis, sepsis features met, given encephalopathy, source of infection, elevated troponins, elevated white blood cell count NSTEMI ? No complaints of chest pain, no complaints of shortness of breath, chronically on Eliquis therapy ? Serial EKGs, serial troponins, telemetry monitoring ? Continue aspirin ? Continue heparin drip History of TAVR History of appendicitis status post appendectomy History of atrial fibrillation on Eliquis therapy History of pacemaker placement Right PICC line in place Recent hospitalization for Enterococcus bacteremia, on Rocephin and ampicillin Full code Heparin drip for DVT prophylaxis Attestations Medical Necessity Statement*: Patient requires hospitalization, inpatient, greater than 2 midnights, for acute encephalopathy, UTI, NSTEMI Diagnoses Acute encephalopathy G93.40 UTI (urinary tract infection) N39.0 NSTEMI (non-ST elevated myocardial infarction) I21.4 Sepsis A41.9
[2023-09-21] MEDS: trazodone 50 mg Tablet PO (21:01)
[2023-09-21] MEDS: pantoprazole 40 mg SDV IVP (21:01)
[2023-09-21] MEDS: gabapentin 300 mg Capsule PO (21:01)
[2023-09-21] MEDS: hyDRALAzine 20 mg/mL INJ 1 mL 5 MG IVP (21:01)
[2023-09-21 21:07] LABS: Procalcitonin 0.07 ng/mL (0-0.5)
[2023-09-21] MEDS: vancomycin 1,250 MG/250 ML PIGGYBACK 250 MG IV (21:10)
[2023-09-21] MEDS: heparin drip 25,000 UNIT/500 ML PREMIX 26.0399999999999991 UNIT IV (21:37)
[2023-09-21 21:39] LABS: C Reactive Protein 70.6 mg/L (0.0-4.9); Thyroid Stimulating Hormone 2.98 uIU/mL (0.27-4.20)
[2023-09-21] MEDS: heparin 5,000 unit/mL INJ 1 mL IV (21:41)
[2023-09-21] MEDS: meropenem 1,000 MG in sodium chloride 0.9% (plus) 50 ML 100 MG IV (22:22)
--- NOTE | 2023-09-21 22:37 | ECG_ITS ---
[facility] Test Date: 2023-09-21 Pat Name: Eddy Miner Department: Room: 279 Gender: Male Membership Secretary: : 1936-06-13 Requested By: Kurt Montero Order Number: [id number] Demarco MD: Jose Haile M.D. Measurements Intervals [employer] Rate: 88 P: 0 [place]: 0 QRS: -43 QRSD: 169 T: 158 QT: 442 QTc: 537 Interpretive Statements ATRIAL FIBRILLATION LEFT AXIS DEVIATION [QRS AXIS < -30] INTRAVENTRICULAR CONDUCTION DELAY [130+ ms QRS DURATION] Compared to ECG 09/21/2023 18:23:35 Intraventricular conduction delay now present Left bundle-branch block no longer present Electronically Signed On 09-22-2023 16:28:36 CDT by Jose Haile M.D. [id number]
[2023-09-22] VITALS (14 sets, daily range): BP systolic 127–189; BP diastolic 59–90; PULSE 68–110; RESP 16–22; TEMP 36.4–36.6; O2SAT 92–95
[2023-09-22 00:30] LABS: Troponin 5 6HR Delta 1.4 ng/L (0-12)
[2023-09-22 00:41] LABS: Troponin 5 6HR 113.4 ng/L (0-15)
[2023-09-22] MEDS: ipratropium-albuterol 3 mL Neb INHALATION (03:30)
[2023-09-22 04:25] LABS: Basophils # 0.1 10^3/uL (0.0-0.1); Basophils % 0.3 %; Eosinophils # 0.1 10^3/uL (0.0-0.8); Eosinophils % 0.7 %; Hematocrit 32.2 % (37-53); Lymphocytes # 8.6 10^3/uL (0.8-4.8); Mean Corpuscular HGB Conc 32.9 g/dL (30-55); Mean Corpuscular Hemoglobin 33.7 pg (27-33); Mean Corpuscular Volume 102.2 fl (82-101); Mean Platelet Volume 10.1 fL (7.4-10.4); Monocytes # 0.9 10^3/uL (0.2-0.9); Monocytes % 4.6 %; Neutrophils # 9.77 10^3/uL (1.8-7.7); Neutrophils % 49.9 %; Nucleated Red Blood Cells % 0 %; Platelet Count 161 10^3/cmm (157-399); Red Blood Count 3.15 10^6/uL (3.85-5.65); Red Cell Distribution Width 16.1 % (12.1-15.1); White Blood Count 19.56 10^3/uL (3.29-11.43)
[2023-09-22 04:42] LABS: Anion Gap 12.1 (5-19); Blood Urea Nitrogen 9 mg/dL (8-23); Calcium 8.4 mg/dL (8.5-10.5); Carbon Dioxide 26 mmol/L (22-29); Chloride 105 mmol/L (98-107); Glucose 119 mg/dL (65-115); Osmolality Calculated 290 mOsm/kg (285-295); Potassium 3.1 mmol/L (3.5-5.1); Sodium 140 mmol/L (136-145)
[2023-09-22 04:51] LABS: Creatinine Clr Calc Pharmacy 75.1117
[2023-09-22 04:52] LABS: Partial Thromboplastin Time > 250.0 SECONDS (23.9-36.7)
[2023-09-22 05:10] LABS: Slide Review Slide Review Perform
[2023-09-22] MEDS: meropenem 1,000 MG in sodium chloride 0.9% (plus) 50 ML 100 MG IV ×3 (05:24→21:53)
[2023-09-22] MEDS: aspirin 81 mg EC Tablet PO (05:24)
[2023-09-22] MEDS: gabapentin 300 mg Capsule PO ×3 (09:10→20:45)
[2023-09-22] MEDS: losartan 50 mg Tablet PO (09:12)
[2023-09-22 09:20] LABS: Partial Thromboplastin Time 42.7 SECONDS (23.9-36.7)
[2023-09-22] MEDS: polyethylene glycol 3350 Pkt 17 gm PO (09:21)
[2023-09-22] MEDS: vancomycin 1,250 MG/250 ML PIGGYBACK 250 MG IV ×2 (09:22→20:46)
--- NOTE | 2023-09-22 13:34 | P.PN_ITS ---
Subjective 2 Subjective: Seen this morning. at bedside. No acute events overnight. Patient seems somewhat confused. Vitals/I&O/Wt Last Vital Signs Temp 97.6 F 09/22/23 12:00 Pulse 88 09/22/23 12:00 Resp 18 09/22/23 12:00 BP 168/90 09/22/23 12:00 Pulse Ox 94 09/22/23 12:00 O2 Del Method Room Air 09/22/23 12:00 09/21/23 09/22/23 09/22/23 22:59 06:59 14:59 Intake Total 250 / 250 409.658 / 043.458 3380 / 1210 Output Total 400 / 400 1000 / 1000 Balance 250 / 250 9.658 / 259.658 210 / 210 Weight last 48 hrs Weight 91.127 kg Weight 92.986 kg Weight 92.986 kg Physical Exam 2 Const: COMMON NORMALS: no acute distress HENMT: COMMON NORMALS: normocephalic HEAD & SCALP: normocephalic Eye: COMMON NORMALS: Equal, round and reactive pupils present and EOMs intact bilaterally PUPIL: Yes Equal, round and reactive pupils present Neck/C-Spine: COMMON NORMALS: no JVD Resp: COMMON NORMALS: normal respiratory effort, No retractions, No use of accessory muscles and clear to auscultation bilaterally AUSCULTATION: clear to auscultation bilaterally Cardio: COMMON NORMALS: no JVD, regular rate, regular rhythm, S1 normal heart sound present and S2 normal heart sound present RATE: regular rate RHYTHM: regular rhythm HEART SOUNDS: S1 normal heart sound present and S2 normal heart sound present GI: COMMON NORMALS: Normal to inspection, nondistended, normoactive bowel sounds present, Soft to palpation and non-tender PALPATION: Yes Soft to palpation Extremity: COMMON NORMALS: no calf tenderness and no pedal edema Neuro: OTHER: Can follow simple neurologic testing able to smile for me, squeeze my fingers bilaterally, wiggles toes, alert to person, not to place, not to time [facility] Psych: COMMON NORMALS: mental status grossly normal Urinary Catheter Management: Vickers: Cath Placed During This Visit: yes Reason for Continuing Indwelling Catheter: Chronic Indwelling Urinary Catheter on Admission Urinary Catheter Date of Insertion: 09/21/23 Urinary Catheter Time of Insertion: 23:04 Sepsis: Is patient septic: Yes Focused sepsis exam performed: Yes F ocused sepsis exam: DP PT pulses greater palpable, cap refill less than 2 seconds, no mottling Date exam was performed: 09/21/23 Time exam was performed: 20:00 Data 09/22/23 03:45 09/22/23 03:45 Micro: Microbiology 09/21/23 17:54 Blood Culture - Preliminary Blood SPECIMEN COLLECTED 09/21/23 16:50 Blood Culture - Preliminary Blood SPECIMEN COLLECTED A&P Assessment and plan (1) Acute encephalopathy: (2) UTI (urinary tract infection): (3) NSTEMI (non-ST elevated myocardial infarction): (4) Sepsis: Plan Acute encephalopathy ? Likely secondary to UTI, sepsis ? Neurochecks, any stroke scale, aspiration precautions Complicated urinary tract infection, ? Likely associated with Vickers catheter ? While being on Rocephin, ampicillin ? Indicates multidrug-resistant organism, especially as he is at the residential facility ? Plan ? Remove Vickers catheter, culture tip, placement of Vickers catheter?this was done overnight. ? Urine cultures ? Blood cultures ? Cover for ESBL start meropenem ? Start vancomycin ? CT scan abdomen pelvis with IV contrast Sepsis, sepsis features met, given encephalopathy, source of infection, elevated troponins, elevated white blood cell count NSTEMI ? No complaints of chest pain, no complaints of shortness of breath, chronically on Eliquis therapy ? Serial EKGs, serial troponins, telemetry monitoring ? Continue aspirin ? Continue heparin drip History of TAVR History of appendicitis status post appendectomy History of atrial fibrillation on Eliquis therapy History of pacemaker placement Right PICC line in place Recent hospitalization for Enterococcus bacteremia, on Rocephin and ampicillin Full code Heparin drip for DVT prophylaxis Continue above management for now. Attestations 2 Medical Necessity Statement*: Patient requires hospitalization, inpatient, greater than 2 midnights, for acute encephalopathy, UTI, NSTEMI Diagnoses Acute encephalopathy G93.40 UTI (urinary tract infection) N39.0 NSTEMI (non-ST elevated myocardial infarction) I21.4 Sepsis A41.9
[2023-09-22 16:06] LABS: Partial Thromboplastin Time 194.8 SECONDS (23.9-36.7)
[2023-09-22] MEDS: dutasteride 0.5 mg Capsule PO (18:04)
[2023-09-22 18:34] LABS: Partial Thromboplastin Time 59.6 SECONDS (23.9-36.7)
[2023-09-22] MEDS: trazodone 50 mg Tablet PO (20:45)
[2023-09-22] MEDS: pantoprazole 40 mg SDV IVP (20:46)
[2023-09-22] MEDS: heparin drip 25,000 UNIT/500 ML PREMIX 26.0399999999999991 UNIT IV (23:25)
[2023-09-23] VITALS (11 sets, daily range): BP systolic 145–185; BP diastolic 79–109; PULSE 69–85; RESP 16–24; TEMP 36.4–37.4; O2SAT 92–97
[2023-09-23] MEDS: metoprolol tartrate 25 mg Tablet PO ×3 (01:06→20:07)
[2023-09-23 01:57] LABS: Partial Thromboplastin Time 181.8 SECONDS (23.9-36.7)
[2023-09-23] MEDS: aspirin 81 mg EC Tablet PO (05:58)
[2023-09-23] MEDS: meropenem 1,000 MG in sodium chloride 0.9% (plus) 50 ML 100 MG IV ×3 (05:58→21:26)
[2023-09-23 06:59] LABS: Partial Thromboplastin Time 35.5 SECONDS (23.9-36.7)
[2023-09-23 07:56] LABS: Basophils # 0.1 10^3/uL (0.0-0.1); Basophils % 0.4 %; Eosinophils # 0.1 10^3/uL (0.0-0.8); Eosinophils % 0.5 %; Lymphocytes % 46.9 %; Mean Corpuscular HGB Conc 32.8 g/dL (30-55); Mean Corpuscular Hemoglobin 33.7 pg (27-33); Mean Corpuscular Volume 102.6 fl (82-101); Mean Platelet Volume 10.2 fL (7.4-10.4); Monocytes # 0.9 10^3/uL (0.2-0.9); Monocytes % 4.9 %; Neutrophils # 9.02 10^3/uL (1.8-7.7); Neutrophils % 46.8 %; Nucleated Red Blood Cells % 0 %; Platelet Count 160 10^3/cmm (157-399); Red Blood Count 3.12 10^6/uL (3.85-5.65); Red Cell Distribution Width 16.6 % (12.1-15.1); White Blood Count 19.23 10^3/uL (3.29-11.43)
[2023-09-23 08:17] LABS: Blood Urea Nitrogen 10 mg/dL (8-23); Carbon Dioxide 25 mmol/L (22-29); Chloride 102 mmol/L (98-107); Creatinine Clr Calc Pharmacy 75.0947; Glucose 122 mg/dL (65-115); Magnesium 1.8 mg/dL (1.7-2.3); Osmolality Calculated 282 mOsm/kg (285-295); Sodium 136 mmol/L (136-145)
[2023-09-23 08:22] LABS: Anion Gap 12.5 (5-19); Potassium 3.5 mmol/L (3.5-5.1)
[2023-09-23 09:23] LABS: Vancomycin Trough 14.4 ug/mL (10-15)
[2023-09-23] MEDS: vancomycin 1,250 MG/250 ML PIGGYBACK 250 MG IV ×2 (09:43→20:07)
[2023-09-23] MEDS: gabapentin 300 mg Capsule PO ×3 (09:43→20:07)
[2023-09-23] MEDS: losartan 50 mg Tablet PO (09:43)
[2023-09-23] MEDS: polyethylene glycol 3350 Pkt 17 gm PO (09:43)
--- NOTE | 2023-09-23 13:01 | P.PN_ITS ---
Subjective 2 Subjective: Seen this morning. Patient tells me if the year 2023 Abhijit is the president and he knows he is in [place]. 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 Physical therapist at bedside. She states this is his baseline mental status because she has seen him before. Vitals/I&O/Wt Last Vital Signs Temp 98.2 F 09/23/23 07:52 Pulse 70 09/23/23 11:56 Resp 17 09/23/23 11:56 BP 145/79 09/23/23 11:56 Pulse Ox 97 09/23/23 11:56 O2 Del Method Room Air 09/23/23 11:56 09/22/23 09/23/23 09/23/23 22:59 06:59 14:59 Intake Total 1066.204 / 2276.204 477.054 / 2753.258 370 / 370 Output Total 900 / 2350 250 / 2600 Balance 166.204 / -73.796 227.054 / 153.258 370 / 370 Weight last 48 hrs Weight 91.081 kg Weight 91.127 kg Weight 92.986 kg Weight 92.986 kg Physical Exam 2 Const: COMMON NORMALS: no acute distress HENMT: COMMON NORMALS: normocephalic HEAD & SCALP: normocephalic Eye: COMMON NORMALS: Equal, round and reactive pupils present and EOMs intact bilaterally PUPIL: Yes Equal, round and reactive pupils present Neck/C-Spine: COMMON NORMALS: no JVD Resp: COMMON NORMALS: normal respiratory effort, No retractions, No use of accessory muscles and clear to auscultation bilaterally AUSCULTATION: clear to auscultation bilaterally Cardio: COMMON NORMALS: no JVD, regular rate, regular rhythm, S1 normal heart sound present and S2 normal heart sound present RATE: regular rate RHYTHM: regular rhythm HEART SOUNDS: S1 normal heart sound present and S2 normal heart sound present GI: COMMON NORMALS: Normal to inspection, nondistended, normoactive bowel sounds present, Soft to palpation and non-tender PALPATION: Yes Soft to palpation Extremity: COMMON NORMALS: no calf tenderness and no pedal edema Neuro: OTHER: Alert oriented x 3. Psych: COMMON NORMALS: mental status grossly normal Urinary Catheter Management: Vickers: Cath Placed During This Visit: yes Reason for Continuing Indwelling Catheter: Chronic Indwelling Urinary Catheter on Admission Urinary Catheter Date of Insertion: 09/21/23 Urinary Catheter Time of Insertion: 23:04 Sepsis: Is patient septic: Yes Focused sepsis exam performed: Yes F ocused sepsis exam: DP PT pulses greater palpable, cap refill less than 2 seconds, no mottling Date exam was performed: 09/21/23 Time exam was performed: 20:00 Data 09/23/23 07:50 09/23/23 07:50 Micro: Microbiology 09/21/23 18:20 Urine Culture - Preliminary Urine,Clean Catch Yeast species 09/21/23 17:54 Blood Culture - Preliminary Blood NEGATIVE TO DATE 09/21/23 16:50 Blood Culture - Preliminary Blood NEGATIVE TO DATE A&P Assessment and plan (1) Acute encephalopathy: (2) UTI (urinary tract infection): (3) NSTEMI (non-ST elevated myocardial infarction): (4) Sepsis: Plan Acute encephalopathy ? Likely secondary to UTI, sepsis ? Neurochecks, any stroke scale, aspiration precautions Complicated urinary tract infection, ? Likely associated with Vickers catheter ? While being on Rocephin, ampicillin ? Indicates multidrug-resistant organism, especially as [facility] is [facility] the [facility] ? Plan ? Remove Vickers catheter, culture tip, placement of Vickers catheter?this was done overnight. ? Urine cultures ? Blood cultures ? Cover for ESBL start meropenem ? Start vancomycin ? CT scan abdomen pelvis with IV contrast : 1. No hydronephrosis of either kidney. No visible renal or ureteral calculus. 2. Mild perinephric stranding bilaterally, see above discussion. 3. Prostate enlargement and suspected urinary bladder wall thickening, see above. 4. No free air or significant bowel distention. 5. Small amount of fluid in the posterior lower pelvis, not significantly changed. 6. Large bilateral pleural effusions and mild lower lung opacities, see above. 7. Small pericardial effusion. 8. Other findings discussed above. Sepsis, sepsis features met, given encephalopathy, source of infection, elevated troponins, elevated white blood cell count NSTEMI ? No complaints of chest pain, no complaints of shortness of breath, chronically on Eliquis therapy ? Serial EKGs, serial troponins, telemetry monitoring ? Continue aspirin ? Continue heparin drip History of TAVR History of appendicitis status post appendectomy History of atrial fibrillation on Eliquis therapy History of pacemaker placement Right PICC line in place Recent hospitalization for Enterococcus bacteremia, on Rocephin and ampicillin Full code Heparin drip for DVT prophylaxis Today's plan 09/22 -Urine culture positive for yeast. Final speciation pending. ? White count persistently 19,000. ? Continue patient on vancomycin, meropenem at this time ? Add IV fluconazole 200 daily ? Patient seems to be at baseline mental status. ? Will continue to check labs in AM. ? Will wait for final urine culture before deciding on further management ? Check fungal blood cultures and beta D glucan. ? Continue PT ? Patient denies have any chest pain. - In light of trop elevation, will do stress test once sepsis resovles. - stop heparin drip today - restart patient on eliquis. continue on aspirin and eliquis. discussed with cardiology. Attestations 2 Medical Necessity Statement*: Patient requires hospitalization, inpatient, greater than 2 midnights, for acute encephalopathy, UTI, NSTEMI Diagnoses Acute encephalopathy G93.40 UTI (urinary tract infection) N39.0 NSTEMI (non-ST elevated myocardial infarction) I21.4 Sepsis A41.9
[2023-09-23] MEDS: fluconazole premix 200 MG/100 ML PREMIX 100 MG IV (14:01)
[2023-09-23 14:20] LABS: Partial Thromboplastin Time 135.4 SECONDS (23.9-36.7)
[2023-09-23] MEDS: dutasteride 0.5 mg Capsule PO (18:14)
[2023-09-23] MEDS: trazodone 50 mg Tablet PO (20:07)
[2023-09-23] MEDS: pantoprazole 40 mg SDV IVP (20:07)
[2023-09-23] MEDS: apixaban 5 mg Tablet PO (20:09)
[2023-09-24] VITALS (13 sets, daily range): BP systolic 150–177; BP diastolic 72–92; PULSE 60–92; RESP 16–24; TEMP 36.4–37.2; O2SAT 93–97
[2023-09-24] MEDS: meropenem 1,000 MG in sodium chloride 0.9% (plus) 50 ML 100 MG IV ×3 (06:04→21:27)
[2023-09-24] MEDS: aspirin 81 mg EC Tablet PO (06:05)
[2023-09-24 06:39] LABS: Basophils # 0.1 10^3/uL (0.0-0.1); Basophils % 0.4 %; Eosinophils # 0.1 10^3/uL (0.0-0.8); Eosinophils % 0.6 %; Hematocrit 35.2 % (37-53); Lymphocytes # 9.8 10^3/uL (0.8-4.8); Mean Corpuscular HGB Conc 32.4 g/dL (30-55); Mean Corpuscular Hemoglobin 33.5 pg (27-33); Mean Corpuscular Volume 103.5 fl (82-101); Mean Platelet Volume 10.2 fL (7.4-10.4); Monocytes # 0.9 10^3/uL (0.2-0.9); Monocytes % 4.2 %; Neutrophils # 10.29 10^3/uL (1.8-7.7); Neutrophils % 48.2 %; Nucleated Red Blood Cells % 0 %; Platelet Count 156 10^3/cmm (157-399); Red Cell Distribution Width 16.8 % (12.1-15.1); White Blood Count 21.36 10^3/uL (3.29-11.43)
[2023-09-24 06:57] LABS: Anion Gap 13.2 (5-19); Blood Urea Nitrogen 13 mg/dL (8-23); Calcium 8.7 mg/dL (8.5-10.5); Carbon Dioxide 26 mmol/L (22-29); Chloride 101 mmol/L (98-107); Creatinine Clr Calc Pharmacy 75.5791; Glucose 114 mg/dL (65-115); Magnesium 1.9 mg/dL (1.7-2.3); Osmolality Calculated 285 mOsm/kg (285-295); Potassium 3.2 mmol/L (3.5-5.1); Sodium 137 mmol/L (136-145)
[2023-09-24] MEDS: losartan 50 mg Tablet 100 MG PO ×2 (09:32→09:36)
[2023-09-24] MEDS: metoprolol tartrate 25 mg Tablet PO ×2 (09:32→20:18)
[2023-09-24] MEDS: gabapentin 300 mg Capsule PO ×3 (09:32→20:17)
[2023-09-24] MEDS: polyethylene glycol 3350 Pkt 17 gm PO (09:33)
[2023-09-24] MEDS: hyDRALAzine 50 mg Tablet PO ×3 (09:33→20:17)
[2023-09-24] MEDS: apixaban 5 mg Tablet PO ×2 (09:35→20:17)
[2023-09-24] MEDS: vancomycin 1,250 MG/250 ML PIGGYBACK 250 MG IV ×2 (09:36→20:19)
--- NOTE | 2023-09-24 11:21 | P.PN_ITS ---
Subjective 2 Subjective: Seen this morning. Patient is alert oriented x 2. Does not know where he is. WBC count 21,000. Urine culture positive for heavy yeast. Fluconazole was started yesterday. ? Had a discussion with patient's that he may be having hospital-acquired delirium versus onset of dementia. Patient does have sundowning as per reported by nursing staff and has a waxing waning picture of confusion at times. He has good days and bad days. I do acknowledge that he may have had meningitis previous hospital admission and endocarditis was looked at. He was also bacteremic. He was sent to assisted on ampicillin and ceftriaxone x 6 weeks total. 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 Vitals/I&O/Wt Last Vital Signs Temp 97.5 F L 09/24/23 11:15 Pulse 71 09/24/23 11:15 Resp 16 09/24/23 11:15 BP 166/92 09/24/23 11:15 Pulse Ox 95 09/24/23 11:15 O2 Del Method Room Air 09/24/23 11:15 09/23/23 09/24/23 09/24/23 22:59 06:59 14:59 Intake Total 510 / 1268.304 300 / 1568.304 300 / 300 Output Total 750 / 750 425 / 1175 Balance -240 / 518.304 -125 / 393.304 300 / 300 Weight last 48 hrs Weight 92.397 kg Weight 91.081 kg Physical Exam 2 Const: COMMON NORMALS: no acute distress HENMT: COMMON NORMALS: normocephalic HEAD & SCALP: normocephalic Eye: COMMON NORMALS: Equal, round and reactive pupils present and EOMs intact bilaterally PUPIL: Yes Equal, round and reactive pupils present Neck/C-Spine: COMMON NORMALS: no JVD Resp: COMMON NORMALS: normal respiratory effort, No retractions, No use of accessory muscles and clear to auscultation bilaterally AUSCULTATION: clear to auscultation bilaterally Cardio: COMMON NORMALS: no JVD, regular rate, regular rhythm, S1 normal heart sound present and S2 normal heart sound present RATE: regular rate RHYTHM: regular rhythm HEART SOUNDS: S1 normal heart sound present and S2 normal heart sound present GI: COMMON NORMALS: Normal to inspection, nondistended, normoactive bowel sounds present, Soft to palpation and non-tender PALPATION: Yes Soft to palpation Extremity: COMMON NORMALS: no calf tenderness and no pedal edema Neuro: OTHER: Alert oriented x 3. Psych: COMMON NORMALS: mental status grossly normal Urinary Catheter Management: Vickers: Cath Placed During This Visit: yes Reason for Continuing Indwelling Catheter: Other Urinary Catheter Date of Insertion: 09/21/23 Urinary Catheter Time of Insertion: 23:04 Sepsis: Is patient septic: Yes Focused sepsis exam performed: Yes F ocused sepsis exam: DP PT pulses greater palpable, cap refill less than 2 seconds, no mottling Date exam was performed: 09/21/23 Time exam was performed: 20:00 Data 09/24/23 06:17 09/24/23 06:17 Micro: Microbiology 09/24/23 09:24 Blood Culture - Preliminary Blood SPECIMEN COLLECTED 09/24/23 09:30 Blood Culture - Preliminary Blood SPECIMEN COLLECTED 09/21/23 23:01 Catheter Tip Culture - Preliminary Other Source Yeast species 09/21/23 18:20 Urine Culture - Preliminary Urine,Clean Catch Yeast species A&P Assessment and plan (1) Acute encephalopathy: (2) UTI (urinary tract infection): (3) NSTEMI (non-ST elevated myocardial infarction): (4) Sepsis: Plan Acute encephalopathy ? Likely secondary to UTI, sepsis ? Neurochecks, any stroke scale, aspiration precautions Complicated urinary tract infection, ? Likely associated with Vickers catheter ? While being on Rocephin, ampicillin ? Indicates multidrug-resistant organism, especially as he is at the [facility] facility ? Plan ? Remove Vickers catheter, culture tip, placement of Vickers catheter?this was done overnight. ? Urine cultures ? Blood cultures ? Cover for ESBL start meropenem ? Start vancomycin ? CT scan abdomen pelvis with IV contrast : 1. No hydronephrosis of either kidney. No visible renal or ureteral calculus. 2. Mild perinephric stranding bilaterally, see above discussion. 3. Prostate enlargement and suspected urinary bladder wall thickening, see above. 4. No free air or significant bowel distention. 5. Small amount of fluid in the posterior lower pelvis, not significantly changed. 6. Large bilateral pleural effusions and mild lower lung opacities, see above. 7. Small pericardial effusion. 8. Other findings discussed above. Sepsis, sepsis features met, given encephalopathy, source of infection, elevated troponins, elevated white blood cell count NSTEMI ? No complaints of chest pain, no complaints of shortness of breath, chronically on Eliquis therapy ? Serial EKGs, serial troponins, telemetry monitoring ? Continue aspirin ? Continue heparin drip History of TAVR History of appendicitis status post appendectomy History of atrial fibrillation on Eliquis therapy History of pacemaker placement Right PICC line in place Recent hospitalization for Enterococcus bacteremia, on Rocephin and ampicillin Full code Heparin drip for DVT prophylaxis Today's plan 09/22 -Urine culture positive for yeast. Final speciation pending. ? White count persistently 21,000. ? Continue patient on vancomycin, meropenem at this time ? continue IV fluconazole 200 daily ? I do have a suspicion that patient may have some dementia component along with his possible metabolic encephalopathy. Patient does have sundowning as well. This may also be hospital-acquired delirium. Discussed this with the in detail. ? Will continue to check labs in AM. ? Will wait for final urine culture before deciding on further management ? Check fungal blood cultures and beta D glucan. ? Continue PT ? Patient denies have any chest pain. - In light of trop elevation, will do stress test once sepsis resovles. - stop heparin drip today - restart patient on eliquis. continue on aspirin and eliquis. discussed with cardiology. Attestations 2 Medical Necessity Statement*: Patient requires hospitalization, inpatient, greater than 2 midnights, for acute encephalopathy, UTI, NSTEMI Diagnoses Acute encephalopathy G93.40 UTI (urinary tract infection) N39.0 NSTEMI (non-ST elevated myocardial infarction) I21.4 Sepsis A41.9
[2023-09-24] MEDS: fluconazole premix 200 MG/100 ML PREMIX 100 MG IV (13:13)
--- NOTE | 2023-09-24 14:20 | PC.SOCIAL ---
Pg 2 IMM Explained to pt & Pg 2 IMM. No questions voiced. Provided pt a copy. Initialed, dated, & timed a copy & placed in chart.
[2023-09-24] MEDS: dutasteride 0.5 mg Capsule PO (18:27)
[2023-09-24] MEDS: pantoprazole 40 mg SDV IVP (20:18)
[2023-09-24] MEDS: trazodone 50 mg Tablet PO (20:18)
[2023-09-25] VITALS (11 sets, daily range): BP systolic 126–177; BP diastolic 71–83; PULSE 66–84; RESP 16–22; TEMP 36.4–36.6; O2SAT 94–98
[2023-09-25] MEDS: aspirin 81 mg EC Tablet PO (05:06)
[2023-09-25] MEDS: meropenem 1,000 MG in sodium chloride 0.9% (plus) 50 ML 100 MG IV ×3 (05:06→22:12)
[2023-09-25 06:21] LABS: Basophils # 0.1 10^3/uL (0.0-0.1); Basophils % 0.2 %; Eosinophils # 0.1 10^3/uL (0.0-0.8); Eosinophils % 0.5 %; Hematocrit 35.2 % (37-53); Lymphocytes # 9.7 10^3/uL (0.8-4.8); Lymphocytes % 45.7 %; Mean Corpuscular HGB Conc 31.8 g/dL (30-55); Mean Corpuscular Volume 103.8 fl (82-101); Mean Platelet Volume 10.7 fL (7.4-10.4); Monocytes % 4.7 %; Neutrophils # 10.29 10^3/uL (1.8-7.7); Neutrophils % 48.3 %; Nucleated Red Blood Cells % 0 %; Platelet Count 115 10^3/cmm (157-399); Red Blood Count 3.39 10^6/uL (3.85-5.65); Red Cell Distribution Width 16.6 % (12.1-15.1); White Blood Count 21.33 10^3/uL (3.29-11.43)
[2023-09-25 06:43] LABS: Blood Urea Nitrogen 14 mg/dL (8-23); Calcium 8.1 mg/dL (8.5-10.5); Carbon Dioxide 25 mmol/L (22-29); Chloride 103 mmol/L (98-107); Glucose 112 mg/dL (65-115); Magnesium 1.9 mg/dL (1.7-2.3); Osmolality Calculated 285 mOsm/kg (285-295); Sodium 137 mmol/L (136-145)
[2023-09-25 06:48] LABS: Anion Gap 12.4 (5-19); Creatinine Clr Calc Pharmacy 75.7628; Potassium 3.4 mmol/L (3.5-5.1)
[2023-09-25] MEDS: ipratropium-albuterol 3 mL Neb INHALATION (08:31)
[2023-09-25] MEDS: gabapentin 300 mg Capsule PO ×3 (08:46→20:28)
[2023-09-25] MEDS: polyethylene glycol 3350 Pkt 17 gm PO (08:46)
[2023-09-25] MEDS: vancomycin 1,250 MG/250 ML PIGGYBACK 250 MG IV ×2 (08:46→20:28)
[2023-09-25] MEDS: hyDRALAzine 50 mg Tablet PO ×3 (08:46→20:27)
[2023-09-25] MEDS: losartan 50 mg Tablet 100 MG PO (08:46)
[2023-09-25] MEDS: apixaban 5 mg Tablet PO ×2 (08:49→20:28)
[2023-09-25] MEDS: metoprolol tartrate 25 mg Tablet PO ×2 (08:49→20:27)
[2023-09-25 10:43] LABS: Glucose Point of Care 105 mg/dL (70-110)
[2023-09-25] MEDS: fluconazole premix 200 MG/100 ML PREMIX 100 MG IV (14:06)
[2023-09-25 15:14] LABS: C Reactive Protein 76.2 mg/L (0.0-4.9); Creatine Phosphokinase 38 U/L (39-308); Phosphorus 2.4 mg/dL (2.5-4.5)
--- NOTE | 2023-09-25 15:40 | P.PN_ITS ---
Subjective 2 Subjective: Seen with pleasantly confused Afebrile Vitals/I&O/Wt Last Vital Signs Temp 97.9 F 09/25/23 15:31 Pulse 71 09/25/23 15:31 Resp 17 09/25/23 15:31 BP 141/79 09/25/23 15:31 Pulse Ox 98 09/25/23 15:31 O2 Del Method Room Air 09/25/23 15:31 09/25/23 09/25/23 09/25/23 06:59 14:59 22:59 Intake Total 50 / 1170 540 / 540 100 / 640 Output Total 400 / 400 Balance -350 / 770 540 / 540 100 / 640 Weight last 48 hrs Weight 204 lb 12.8 oz Weight 203 lb 11.2 oz Physical Exam 2 Const: COMMON NORMALS: no acute distress HENMT: COMMON NORMALS: normocephalic HEAD & SCALP: normocephalic Eye: COMMON NORMALS: Equal, round and reactive pupils present and EOMs intact bilaterally PUPIL: Yes Equal, round and reactive pupils present Neck/C-Spine: COMMON NORMALS: no JVD Resp: COMMON NORMALS: normal respiratory effort, No retractions, No use of accessory muscles and clear to auscultation bilaterally AUSCULTATION: clear to auscultation bilaterally Cardio: COMMON NORMALS: no JVD, regular rate, regular rhythm, S1 normal heart sound present and S2 normal heart sound present RATE: regular rate RHYTHM: regular rhythm HEART SOUNDS: S1 normal heart sound present and S2 normal heart sound present GI: COMMON NORMALS: Normal to inspection, nondistended, normoactive bowel sounds present, Soft to palpation and non-tender PALPATION: Yes Soft to palpation Extremity: COMMON NORMALS: no calf tenderness and no pedal edema Neuro: OTHER: Alert oriented x 3. Psych: COMMON NORMALS: mental status grossly normal Urinary Catheter Management: Vickers: Cath Placed During This Visit: yes Reason for Continuing Indwelling Catheter: Chronic Indwelling Urinary Catheter on Admission Urinary Catheter Date of Insertion: 09/21/23 Urinary Catheter Time of Insertion: 23:04 Sepsis: Is patient septic: Yes Focused sepsis exam performed: Yes F ocused sepsis exam: DP PT pulses greater palpable, cap refill less than 2 seconds, no mottling Date exam was performed: 09/21/23 Time exam was performed: 20:00 Data 09/25/23 06:00 09/25/23 06:00 Micro: Microbiology 09/21/23 23:01 Catheter Tip Culture - Final Other Source Nohemy albicans 09/21/23 18:20 Urine Culture - Final Urine,Clean Catch Nohemy albicans 09/24/23 09:24 Blood Culture - Preliminary Blood NEGATIVE TO DATE 09/24/23 09:30 Blood Culture - Preliminary Blood NEGATIVE TO DATE A&P Assessment and plan (1) Acute encephalopathy: (2) UTI (urinary tract infection): (3) NSTEMI (non-ST elevated myocardial infarction): (4) Sepsis: Plan Acute encephalopathy ? Likely secondary to UTI, sepsis ? Neurochecks, any stroke scale, aspiration precautions Complicated urinary tract infection, ? Likely associated with Vickers catheter ? While being on Rocephin, ampicillin ? Indicates multidrug-resistant organism, especially as he is at the assisted facility ? Plan ? Remove Vickers catheter, culture tip, placement of Vickers catheter?this was done ? Urine cultures ? Blood cultures ? Cover for ESBL meropenem ? Start vancomycin ? CT scan abdomen pelvis with IV contrast : 1. No hydronephrosis of either kidney. No visible renal or ureteral calculus. 2. Mild perinephric stranding bilaterally, see above discussion. 3. Prostate enlargement and suspected urinary bladder wall thickening, see above. 4. No free air or significant bowel distention. 5. Small amount of fluid in the posterior lower pelvis, not significantly changed. 6. Large bilateral pleural effusions and mild lower lung opacities, see above. 7. Small pericardial effusion. 8. Other findings discussed above. Sepsis, sepsis features met, given encephalopathy, source of infection, elevated troponins, elevated white blood cell count NSTEMI ? No complaints of chest pain, no complaints of shortness of breath, chronically on Eliquis therapy ? Serial EKGs, serial troponins, telemetry monitoring ? Continue aspirin ? Continue eliquis History of TAVR History of appendicitis status post appendectomy History of atrial fibrillation on Eliquis therapy History of pacemaker placement Right PICC line in place Recent hospitalization for Enterococcus bacteremia, on Rocephin and ampicillin Full code Attestations 2 Medical Necessity Statement*: abx Coding Level of Care Code 50951 Diagnoses Acute encephalopathy G93.40 UTI (urinary tract infection) N39.0 NSTEMI (non-ST elevated myocardial infarction) I21.4 Sepsis A41.9
[2023-09-25] MEDS: dutasteride 0.5 mg Capsule PO (18:23)
[2023-09-25] MEDS: trazodone 50 mg Tablet PO (20:28)
[2023-09-25] MEDS: pantoprazole 40 mg SDV IVP (20:28)
[2023-09-25 21:29] LABS: Folate Level 17.7 ng/mL (4.5-32.2)
[2023-09-26] VITALS (8 sets, daily range): BP systolic 114–151; BP diastolic 54–94; PULSE 71–89; RESP 16–21; TEMP 36.3–36.7; O2SAT 95–97
[2023-09-26] MEDS: meropenem 1,000 MG in sodium chloride 0.9% (plus) 50 ML 100 MG IV ×3 (05:03→22:42)
[2023-09-26] MEDS: aspirin 81 mg EC Tablet PO (05:04)
[2023-09-26 09:13] LABS: Vancomycin Trough 22.7 ug/mL (10-15)
[2023-09-26] MEDS: gabapentin 300 mg Capsule PO ×3 (11:07→20:55)
[2023-09-26] MEDS: hyDRALAzine 50 mg Tablet PO ×2 (15:01→20:55)
[2023-09-26] MEDS: fluconazole premix 200 MG/100 ML PREMIX 100 MG IV (15:05)
[2023-09-26 15:06] LABS: Basophils % 0.2 %; Eosinophils # 0.3 10^3/uL (0.0-0.8); Eosinophils % 1.3 %; Hematocrit 34.8 % (37-53); Lymphocytes # 10.2 10^3/uL (0.8-4.8); Lymphocytes % 51.1 %; Mean Corpuscular Hemoglobin 33.7 pg (27-33); Mean Corpuscular Volume 102.1 fl (82-101); Mean Platelet Volume 10.7 fL (7.4-10.4); Monocytes # 1.1 10^3/uL (0.2-0.9); Monocytes % 5.3 %; Neutrophils # 8.31 10^3/uL (1.8-7.7); Neutrophils % 41.6 %; Nucleated Red Blood Cells % 0 %; Platelet Count 86 10^3/cmm (157-399); Red Blood Count 3.41 10^6/uL (3.85-5.65); Red Cell Distribution Width 17.1 % (12.1-15.1); White Blood Count 19.92 10^3/uL (3.29-11.43)
[2023-09-26 15:26] LABS: Alanine Aminotransferase 20 U/L (0-41); Albumin Level 2.4 g/dL (3.5-5.2); Alkaline Phosphatase 226 U/L (40-130); Blood Urea Nitrogen 15 mg/dL (8-23); C Reactive Protein 71.5 mg/L (0.0-4.9); Calcium 8.6 mg/dL (8.5-10.5); Carbon Dioxide 25 mmol/L (22-29); Chloride 104 mmol/L (98-107); Globulin 2.4 g/dL (1.3-4.6); Glucose 112 mg/dL (65-115); Osmolality Calculated 288 mOsm/kg (285-295); Sodium 138 mmol/L (136-145); Total Bilirubin 1.4 mg/dL (0.15-1.2); Total Protein 4.8 g/dL (6.6-8.7)
[2023-09-26 15:34] LABS: Anion Gap 12.3 (5-19); Aspartate Amino Transferase 36 U/L (0-40); Potassium 3.3 mmol/L (3.5-5.1)
[2023-09-26 15:36] LABS: Slide Review Slide Review Perform
--- NOTE | 2023-09-26 16:23 | P.PN_ITS ---
Subjective 2 Subjective: Pleasantly confused. at bedside. Afebrile. Discussed CODE STATUS and wants to be DNR/DNI with Vitals/I&O/Wt Last Vital Signs Temp 98.1 F 09/26/23 15:30 Pulse 75 09/26/23 15:30 Resp 16 09/26/23 15:30 BP 130/69 09/26/23 11:39 Pulse Ox 96 09/26/23 15:30 O2 Del Method Room Air 09/26/23 15:30 09/26/23 09/26/23 09/26/23 06:59 14:59 22:59 Intake Total 100 / 1110 240 / 240 Output Total 400 / 800 Balance -300 / 310 240 / 240 Weight last 48 hrs Weight 203 lb 1.6 oz Weight 204 lb 12.8 oz Physical Exam 2 Const: COMMON NORMALS: no acute distress HENMT: COMMON NORMALS: normocephalic HEAD & SCALP: normocephalic Eye: COMMON NORMALS: Equal, round and reactive pupils present and EOMs intact bilaterally PUPIL: Yes Equal, round and reactive pupils present Neck/C-Spine: COMMON NORMALS: no JVD Resp: COMMON NORMALS: normal respiratory effort, No retractions, No use of accessory muscles and clear to auscultation bilaterally AUSCULTATION: clear to auscultation bilaterally Cardio: COMMON NORMALS: no JVD, regular rate, regular rhythm, S1 normal heart sound present and S2 normal heart sound present RATE: regular rate RHYTHM: regular rhythm HEART SOUNDS: S1 normal heart sound present and S2 normal heart sound present GI: COMMON NORMALS: Normal to inspection, nondistended, normoactive bowel sounds present, Soft to palpation and non-tender PALPATION: Yes Soft to palpation Extremity: COMMON NORMALS: no calf tenderness and no pedal edema Neuro: OTHER: Alert oriented x 3. Psych: COMMON NORMALS: mental status grossly normal Urinary Catheter Management: Vickers: Cath Placed During This Visit: yes Reason for Continuing Indwelling Catheter: Chronic Indwelling Urinary Catheter on Admission Urinary Catheter Date of Insertion: 09/21/23 Urinary Catheter Time of Insertion: 23:04 Sepsis: Is patient septic: Yes Focused sepsis exam performed: Yes F ocused sepsis exam: DP PT pulses greater palpable, cap refill less than 2 seconds, no mottling Date exam was performed: 05/14/24 Time exam was performed: 20:00 Data 09/26/23 14:58 09/26/23 14:58 Micro: Microbiology 09/21/23 23:01 Catheter Tip Culture - Final Other Source Nohemy albicans 09/21/23 18:20 Urine Culture - Final Urine,Clean Catch Nohemy albicans A&P Assessment and plan (1) Acute encephalopathy: (2) UTI (urinary tract infection): (3) NSTEMI (non-ST elevated myocardial infarction): (4) Sepsis: Plan Acute encephalopathy ? Likely secondary to UTI, sepsis ? Neurochecks, any stroke scale, aspiration precautions Complicated urinary tract infection, ? Likely associated with Vickers catheter ? While being on Rocephin, ampicillin ? Indicates multidrug-resistant organism, especially as he is at the [facility] facility ? Plan ? Remove Vickers catheter, culture tip, placement of Vickers catheter?this was done ? Urine cultures ? Blood cultures ? Cover for ESBL meropenem ? Start vancomycin ? CT scan abdomen pelvis with IV contrast : 1. No hydronephrosis of either kidney. No visible renal or ureteral calculus. 2. Mild perinephric stranding bilaterally, see above discussion. 3. Prostate enlargement and suspected urinary bladder wall thickening, see above. 4. No free air or significant bowel distention. 5. Small amount of fluid in the posterior lower pelvis, not significantly changed. 6. Large bilateral pleural effusions and mild lower lung opacities, see above. 7. Small pericardial effusion. 8. Other findings discussed above. Sepsis, sepsis features met, given encephalopathy, source of infection, elevated troponins, elevated white blood cell count NSTEMI ? No complaints of chest pain, no complaints of shortness of breath, chronically on Eliquis therapy ? Serial EKGs, serial troponins, telemetry monitoring ? Continue aspirin ? Continue eliquis History of TAVR History of appendicitis status post appendectomy History of atrial fibrillation on Eliquis therapy History of pacemaker placement Right PICC line in place Recent hospitalization for Enterococcus bacteremia, on Rocephin and ampicillin DNR DNI Attestations 2 Medical Necessity Statement*: Eddy Miner requires ongoing inpatient care for abx Coding Level of Care Code 13924 Diagnoses Acute encephalopathy G93.40 UTI (urinary tract infection) N39.0 NSTEMI (non-ST elevated myocardial infarction) I21.4 Sepsis A41.9
[2023-09-26] MEDS: vancomycin 1,250 MG/250 ML PIGGYBACK 250 MG IV (17:04)
[2023-09-26] MEDS: dutasteride 0.5 mg Capsule PO (17:37)
[2023-09-26] MEDS: pantoprazole 40 mg SDV IVP (20:28)
[2023-09-26] MEDS: metoprolol tartrate 25 mg Tablet PO (20:54)
[2023-09-26] MEDS: apixaban 5 mg Tablet PO (20:54)
[2023-09-26] MEDS: trazodone 50 mg Tablet PO (20:55)
[2023-09-27] VITALS (9 sets, daily range): BP systolic 117–158; BP diastolic 69–89; PULSE 68–87; RESP 16–19; TEMP 36.4–37.4; O2SAT 94–97
[2023-09-27] MEDS: meropenem 1,000 MG in sodium chloride 0.9% (plus) 50 ML 100 MG IV ×3 (05:15→21:28)
[2023-09-27] MEDS: aspirin 81 mg EC Tablet PO (05:15)
[2023-09-27] MEDS: vancomycin 1,250 MG/250 ML PIGGYBACK 250 MG IV (08:43)
[2023-09-27] MEDS: apixaban 5 mg Tablet PO (08:43)
[2023-09-27] MEDS: losartan 50 mg Tablet 100 MG PO (08:43)
[2023-09-27] MEDS: gabapentin 300 mg Capsule PO ×3 (08:43→21:22)
[2023-09-27] MEDS: metoprolol tartrate 25 mg Tablet PO ×2 (08:43→21:22)
[2023-09-27] MEDS: hyDRALAzine 50 mg Tablet PO ×3 (08:43→21:22)
[2023-09-27] MEDS: polyethylene glycol 3350 Pkt 17 gm PO (08:43)
--- NOTE | 2023-09-27 09:16 | USCV_ITS ---
KristoferEddy Age: 87 Gender: M : 06/13/1936 Exam Date: 09/27/2023 19:14 Ordering Phys: Mimi Palm MD Technologist: HERNANDEZ [place] [facility] [place]: pericardial effusion, history of atrial fibrillation, has dual pacer. BP: 154 / 89 HR: 67 Rhythm: Pace rhythm with atrial fibrillation Technical Quality: Adequate MEASUREMENTS (Male / Female) Normal Values 2D ECHO LV Diastolic Diameter PLAX 3.7 cm 4.2 - 5.9 / 3.9 - 5.3 cm IVS Diastolic Thickness 1.8 cm 0.6 - 1.0 / 0.6 - 0.9 cm IVS Systolic Thickness 1.9 cm LVPW Diastolic Thickness 1.5 cm 0.6 - 1.0 / 0.6 - 0.9 cm LVPW Systolic Thickness 1.9 cm LVOT Diameter 2.2 cm LV Ejection Fraction 2D Teich 51.4 % LV Ejection Fraction MOD 2C 33.7 % LV Ejection Fraction 2C AL 36.7 % LA Diameter 5.6 cm LA Sys Volume AL 126.4 cm cubed LA Sys Volume Index AL 57.8 cm cubed/m squared Aorta at Sinotubular Diameter 2.8 cm IVC Diameter 1.8 cm M-MODE LA Ao Ratio MM 1.6 AV Cusp Separation MM 0.7 cm DOPPLER AV Peak Velocity 207.0 cm/s LVOT Peak Velocity 162.0 cm/s AV Area Cont Eq vti 2.7 cm squared AV Area Cont Eq pk 2.9 cm squared MV Peak Velocity 112.0 cm/s MV Area PHT 3.9 cm squared Mitral E to A Ratio 0.0 TV Peak Velocity 273.0 cm/s TR Peak Velocity 292.0 cm/s TR Peak Gradient 34.1 mmHg TV Peak E Velocity 53.0 cm/s Right Atrial Pressure 10.0 mmHg Pulmonary Artery Systolic Pressu 44.1 mmHg PV Peak Velocity 74.0 cm/s FINDINGS Left Ventricle Normal LV size ejection fraction of around 50% (visual). Moderate concentric left ventricular hypertrophy.abnormal septal motion consistent with pacemaker. Grade III/IV diastolic dysfunction (restrictive filling pattern), severely elevated filling pressures. Right Ventricle Pacemaker wire in the right ventricle Right Atrium Pacemaker wire in the right atrium.mildly increased right atrial size. Left Atrium Moderately increased left atrial size. Mitral Valve Thickened mitral valve. Aortic Valve The bioprosthetic valve the aortic position appears to be well- seated. Mild to moderate eccentric aortic regurgitation. Peak velocity of the aortic valve was 2.07 m/s with a peak gradient of 17 and a mean gradient of 8 mmHg Tricuspid Valve Trace to mild tricuspid valve regurgitation. Estimated pulmonary artery peak systolic pressure 44 mmHg Pulmonic Valve Mild pulmonary valve regurgitation. Pericardium Small echo-free space anteriorly and posteriorly. Seems to have a large left-sided pleural effusion Aorta Normal aortic annulus size. IVC Normal IVC dimension with <50% respiratory change of the inferior vena cava. CONCLUSIONS Normal LV size ejection fraction of around 50%, (visual). Moderate concentric left ventricular hypertrophy.abnormal septal motion consistent with pacemaker. Grade III/IV diastolic dysfunction (restrictive filling pattern), severely elevated filling pressures. Moderately increased left atrial size. Mildly increased right atrial size. The bioprosthetic valve the aortic position appears to be well- seated. Mild to moderate eccentric aortic regurgitation. Peak velocity of the aortic valve was 2.07 m/s with a peak gradient of 17 and a mean gradient of 8 mmHg. Trace to mild tricuspid valve regurgitation. Mild pulm hypertension with an estimated pulmonary artery peak systolic pressure 44 mmHg. Mild pulmonary valve regurgitation. Features of small pericardial effusion Possibly large left-sided pleural effusion Pacemaker wire in the right atrium and right ventricle Compared to the previous study from 09/01/2023, there is slightly more pericardial effusion(from trivial to small) Dr Tanna Guerin MD FAC (Electronically Signed) Final Date: 28 Sep 2023 08:59 S
--- NOTE | 2023-09-27 09:16 | XRR_ITS ---
PROCEDURE INFORMATION: Exam: XR Chest Exam date and time: 09/27/2023 9:25 AM Age: 87 years old Clinical indication: Condition or disease; Lung condition and disease; Pleural effusion; Other: Not specified; Prior surgery; Surgery date: 6+ months; Surgery type: Pacer; Additional info: Followup pleural effusion TECHNIQUE: Imaging protocol: Radiologic exam of the chest. Views: 1 view. COMPARISON: CR XR chest 1V portable [id number] 09/21/2023 4:21 PM FINDINGS: Tubes, catheters and devices: Unchanged PICC line, multi lead pacemaker/defibrillator and stable TAVR. Lungs: Bibasilar infiltrates and atelectasis plus small pleural effusions are increasing when compared to the prior study. There is vascular engorgement as well. The findings are likely due to CHF. Pleural spaces: Unremarkable. No pleural effusion. No pneumothorax. Heart/Mediastinum: Unremarkable. No cardiomegaly. Bones/joints: Unremarkable. XR/XR chest 1V portable [id number] IMPRESSION: Increasing opacity in the lower lobes likely due to CHF.
--- NOTE | 2023-09-27 10:02 | CT_ITS ---
WS: [id number] CT CHEST, ABDOMEN AND PELVIS WITHOUT HISTORY: pleural effusion, fluid collection followup TECHNIQUE: Contiguous 5 mm axial imaging performed through the chest, abdomen and pelvis without IV c ontrast, oral contrast has not been provided. Coronal and sagittal reformats chest. Coronal and sagit carlos reformats through the abdomen and pelvis. All CT scans at [facility] use at least one of these dose optimization techniques: automated exposure control; mA and/or kV adjustment per patient s ize (includes targeted exams where dose is matched to clinical indication); or iterative reconstructi on. CONTRAST: None DLP: 971.28 mGy.cm COMPARISON: 09/22/2023, 09/08/[address]: Moderate to large bilateral pleural effusions very slightly increased since 09/08/2023. Major ity of the lower lung menjivar are collapsed by the fluid. There is mild hazy attenuation from edema th roughout the lungs. No mass. Mild cardiomegaly. Small pericardial effusion has increased very slightl y. Prior aortic valve replacement. Cardiac pacer. Moderate atherosclerosis aorta. No dilatation. Mild soft tissue anasarca. Abdomen CT: Unenhanced imaging demonstrates no change in appearance of the liver or spleen. There are a few low-attenuation areas within the spleen which may be cysts. These could be prior infarcts. The se have been present on the last several CT examinations. Marked atrophy and fatty replacement of the pancreas. No adrenal mass. No renal obstruction. Bilateral perinephric stranding. Vascular calcifica tion RIGHT renal pelvis. Focal cortical scarring mid LEFT kidney. Atherosclerosis aorta. No GI tract obstruction. No colitis. Moderate sigmoid diverticulosis without acute diverticulitis. No ascites. Pelvic CT: Small amount of free fluid in the pelvis. There is a Vickers catheter in place. There is marked soft tissue anasarca in the lower abdomen and pelvis. Inguinal canals are patent bila terally containing fat and fluid only. CT/[place] [id number] IMPRESSION: 1. Moderate to large bilateral pleural effusions have slightly increased in si ze since 09/08/2023. 2. Mild pulmonary congestion and compressive atelectasis. 3. Prior aortic valve replacement. 4. No renal obstruction. 5. Variable attenuation in the spleen may be from prior infarcts. No change si nce 09/08/2023. 6. Extensive soft tissue anasarca. Soft tissue anasarca has progressed since t he prior recent studies. Small amount of fluid in the pelvis. No persistent foc al collection and no suspicious abscess. 7. Mild perinephric stranding.
[2023-09-27 12:14] LABS: Basophils # 0.1 10^3/uL (0.0-0.1); Basophils % 0.3 %; Eosinophils # 0.2 10^3/uL (0.0-0.8); Eosinophils % 1.1 %; Hematocrit 35.3 % (37-53); Lymphocytes # 10.2 10^3/uL (0.8-4.8); Lymphocytes % 49.6 %; Mean Corpuscular HGB Conc 33.1 g/dL (30-55); Mean Corpuscular Hemoglobin 33.9 pg (27-33); Mean Corpuscular Volume 102.3 fl (82-101); Mean Platelet Volume 10.3 fL (7.4-10.4); Monocytes # 1.1 10^3/uL (0.2-0.9); Monocytes % 5.2 %; Neutrophils # 8.91 10^3/uL (1.8-7.7); Neutrophils % 43.2 %; Nucleated Red Blood Cells % 0 %; Platelet Count 68 10^3/cmm (157-399); Red Blood Count 3.45 10^6/uL (3.85-5.65); Red Cell Distribution Width 17.2 % (12.1-15.1)
[2023-09-27 12:33] LABS: Alanine Aminotransferase 20 U/L (0-41); Albumin Level 2.4 g/dL (3.5-5.2); Alkaline Phosphatase 224 U/L (40-130); Aspartate Amino Transferase 34 U/L (0-40); Blood Urea Nitrogen 15 mg/dL (8-23); Calcium 8.4 mg/dL (8.5-10.5); Carbon Dioxide 25 mmol/L (22-29); Chloride 104 mmol/L (98-107); Creatine Phosphokinase 26 U/L (39-308); Globulin 2.3 g/dL (1.3-4.6); Glucose 108 mg/dL (65-115); Magnesium 1.8 mg/dL (1.7-2.3); Osmolality Calculated 287 mOsm/kg (285-295); Phosphorus 2.1 mg/dL (2.5-4.5); Sodium 138 mmol/L (136-145); Total Bilirubin 1.6 mg/dL (0.15-1.2); Total Protein 4.7 g/dL (6.6-8.7)
[2023-09-27 12:34] LABS: Troponin T (5th) Once 165 ng/L (0-15)
[2023-09-27 12:47] LABS: Anion Gap 12.3 (5-19); Potassium 3.3 mmol/L (3.5-5.1)
[2023-09-27 13:12] LABS: Slide Review Slide Review Perform
--- NOTE | 2023-09-27 14:35 | ECG_ITS ---
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 Measurements Intervals [place] Rate: 83 P: 0 NC: 0 QRS: -49 QRSD: 159 T: 120 QT: 413 QTc: 486 Interpretive Statements UNCERTAIN IRREGULAR RHYTHM ELECTRONIC VENTRICULAR PACEMAKER -- CONTOUR ANALYSIS BASED ON INTRINSIC RHYTHM INTRAVENTRICULAR CONDUCTION DELAY [130+ ms QRS DURATION] Electronically Signed On 09-27-2023 18:10:01 CDT by Jose Haile M.D. [id number]
[2023-09-27] MEDS: fluconazole premix 200 MG/100 ML PREMIX 100 MG IV (15:01)
--- NOTE | 2023-09-27 15:34 | P.PN_ITS ---
Subjective 2 Subjective: Patient underwent CT scan of chest abdomen pelvis this afternoon Afebrile. Sats stable on room air Vitals/I&O/Wt Last Vital Signs Temp 97.9 F 09/27/23 12:00 Pulse 68 09/27/23 12:00 Resp 18 09/27/23 12:00 BP 140/82 09/27/23 12:00 Pulse Ox 97 09/27/23 12:00 O2 Del Method Room Air 09/27/23 12:00 09/27/23 09/27/23 09/27/23 06:59 14:59 22:59 Intake Total 100 / 740 850 / 850 Output Total 300 / 750 400 / 400 Balance -200 / -10 450 / 450 Weight last 48 hrs Weight 207 lb 7 oz Weight 203 lb 1.6 oz Physical Exam 2 Const: COMMON NORMALS: no acute distress HENMT: COMMON NORMALS: normocephalic HEAD & SCALP: normocephalic Eye: COMMON NORMALS: Equal, round and reactive pupils present and EOMs intact bilaterally PUPIL: Yes Equal, round and reactive pupils present Neck/C-Spine: COMMON NORMALS: no JVD Resp: COMMON NORMALS: normal respiratory effort, No retractions, No use of accessory muscles and clear to auscultation bilaterally AUSCULTATION: clear to auscultation bilaterally Cardio: COMMON NORMALS: no JVD, regular rate, regular rhythm, S1 normal heart sound present and S2 normal heart sound present RATE: regular rate RHYTHM: regular rhythm HEART SOUNDS: S1 normal heart sound present and S2 normal heart sound present GI: COMMON NORMALS: Normal to inspection, nondistended, normoactive bowel sounds present, Soft to palpation and non-tender PALPATION: Yes Soft to palpation Extremity: COMMON NORMALS: no calf tenderness and no pedal edema Neuro: OTHER: Alert oriented x 3. Psych: COMMON NORMALS: mental status grossly normal Urinary Catheter Management: Vickers: Cath Placed During This Visit: yes Reason for Continuing Indwelling Catheter: Acute Urinary Retention or Obstruction Urinary Catheter Date of Insertion: 09/21/23 Urinary Catheter Time of Insertion: 23:04 Sepsis: Is patient septic: Yes Focused sepsis exam performed: Yes F ocused sepsis exam: DP PT pulses greater palpable, cap refill less than 2 seconds, no mottling Date exam was performed: 09/21/23 Time exam was performed: 20:00 Data 09/27/23 11:55 09/27/23 11:55 Micro: Microbiology 09/21/23 17:54 Blood Culture - Final Blood NO GROWTH AFTER 5 DAYS 09/21/23 16:50 Blood Culture - Final Blood NO GROWTH AFTER 5 DAYS A&P Assessment and plan (1) Acute encephalopathy: (2) UTI (urinary tract infection): (3) NSTEMI (non-ST elevated myocardial infarction): (4) Sepsis: (5) Thrombocytopenia: (6) Pleural effusion: Plan Acute encephalopathy ? Likely secondary to UTI, sepsis ? Neurochecks, any stroke scale, aspiration precautions Complicated urinary tract infection, ? Likely associated with Vickers catheter ? While being on Rocephin, ampicillin ? Indicates multidrug-resistant organism, especially as he is at the group home facility ? Plan ? Remove Vickers catheter, culture tip, placement of Vickers catheter?this was done ? Urine cultures ? Blood cultures ? Cover for ESBL meropenem ? Start vancomycin ? CT scan abdomen pelvis with IV contrast : 1. No hydronephrosis of either kidney. No visible renal or ureteral calculus. 2. Mild perinephric stranding bilaterally, see above discussion. 3. Prostate enlargement and suspected urinary bladder wall thickening, see above. 4. No free air or significant bowel distention. 5. Small amount of fluid in the posterior lower pelvis, not significantly changed. 6. Large bilateral pleural effusions and mild lower lung opacities, see above. 7. Small pericardial effusion. 8. Other findings discussed above. Sepsis, sepsis features met, given encephalopathy, source of infection, elevated troponins, elevated white blood cell count Pleural and pericardial effusion --Check echocardiogram, IV Lasix, discussed with radiology. Anticipate thoracentesis on Wednesday or NSTEMI ? No complaints of chest pain, no complaints of shortness of breath, chronically on Eliquis therapy ? Serial EKGs, serial troponins, telemetry monitoring ? Continue aspirin ? Continue eliquis History of TAVR History of appendicitis status post appendectomy History of atrial fibrillation on Eliquis therapy History of pacemaker placement Right PICC line in place Recent hospitalization for Enterococcus bacteremia, on Rocephin and ampicillin DNR DNI Attestations 2 Medical Necessity Statement*: Eddy Abdoulaye Miner requires ongoing inpatient care for antibiotics, monitoring labs, thoracentesis Coding Level of Care Code 37365 Diagnoses Acute encephalopathy G93.40 UTI (urinary tract infection) N39.0 NSTEMI (non-ST elevated myocardial infarction) I21.4 Sepsis A41.9 Thrombocytopenia D69.6 Pleural effusion J90
--- NOTE | 2023-09-27 15:35 | PC.SOCIAL ---
IMM Update pg 2 of IMM updated and reviewed w/ patients . Copy provided and copy dated, initialed and placed in chart.
[2023-09-27] MEDS: FUROsemide 10 mg/mL SDV 2mL 20 MG IVP (16:44)
[2023-09-27] MEDS: phosphorus 250 mg Tablet PO (17:09)
[2023-09-27] MEDS: dutasteride 0.5 mg Capsule PO (17:09)
[2023-09-27] MEDS: pantoprazole 40 mg SDV IVP (20:53)
[2023-09-27] MEDS: trazodone 50 mg Tablet PO (21:22)
[2023-09-27] MEDS: potassium chloride premix 100 ML 25 MEQ IV (22:17)
[2023-09-28] VITALS (11 sets, daily range): BP systolic 120–148; BP diastolic 62–84; PULSE 68–86; RESP 16–22; TEMP 36.3–36.7; O2SAT 92–98
[2023-09-28] MEDS: vancomycin 1,250 MG/250 ML PIGGYBACK 250 MG IV ×2 (02:55→21:27)
[2023-09-28] MEDS: meropenem 1,000 MG in sodium chloride 0.9% (plus) 50 ML 100 MG IV ×3 (05:31→22:45)
[2023-09-28] MEDS: polyethylene glycol 3350 Pkt 17 gm PO (09:08)
[2023-09-28] MEDS: losartan 50 mg Tablet 100 MG PO (09:08)
[2023-09-28] MEDS: potassium chloride ER 20 mEq Tablet 40 MEQ PO (09:08)
[2023-09-28] MEDS: hyDRALAzine 50 mg Tablet PO ×3 (09:08→20:27)
[2023-09-28] MEDS: metoprolol tartrate 25 mg Tablet PO ×2 (09:08→20:27)
[2023-09-28] MEDS: phosphorus 250 mg Tablet PO ×2 (09:08→18:09)
[2023-09-28] MEDS: gabapentin 300 mg Capsule PO ×3 (09:08→20:27)
[2023-09-28 09:43] LABS: Basophils # 0.1 10^3/uL (0.0-0.1); Basophils % 0.3 %; Eosinophils # 0.1 10^3/uL (0.0-0.8); Eosinophils % 0.5 %; Hematocrit 36.2 % (37-53); Lymphocytes % 49.6 %; Mean Corpuscular HGB Conc 32.3 g/dL (30-55); Mean Corpuscular Hemoglobin 33.6 pg (27-33); Mean Platelet Volume 10.3 fL (7.4-10.4); Monocytes # 0.9 10^3/uL (0.2-0.9); Neutrophils # 9.98 10^3/uL (1.8-7.7); Nucleated Red Blood Cells % 0 %; Platelet Count 58 10^3/cmm (157-399); Red Blood Count 3.48 10^6/uL (3.85-5.65); Red Cell Distribution Width 17.3 % (12.1-15.1)
[2023-09-28 10:04] LABS: Alanine Aminotransferase 20 U/L (0-41); Albumin Level 2.4 g/dL (3.5-5.2); Alkaline Phosphatase 230 U/L (40-130); Blood Urea Nitrogen 16 mg/dL (8-23); C Reactive Protein 117.9 mg/L (0.0-4.9); Calcium 8.5 mg/dL (8.5-10.5); Carbon Dioxide 26 mmol/L (22-29); Chloride 106 mmol/L (98-107); Creatinine Clr Calc Pharmacy 75.8691; Globulin 2.5 g/dL (1.3-4.6); Glucose 133 mg/dL (65-115); Osmolality Calculated 293 mOsm/kg (285-295); Sodium 140 mmol/L (136-145); Total Bilirubin 1.9 mg/dL (0.15-1.2); Total Protein 4.9 g/dL (6.6-8.7)
[2023-09-28 10:07] LABS: Anion Gap 11.6 (5-19); Aspartate Amino Transferase 41 U/L (0-40); Potassium 3.6 mmol/L (3.5-5.1)
[2023-09-28] MEDS: ipratropium-albuterol 3 mL Neb INHALATION (11:19)
--- NOTE | 2023-09-28 11:43 | PC.NURSE ---
dr. dang okayed pts family to give him his 2 inhalers.
[2023-09-28] MEDS: fluconazole premix 200 MG/100 ML PREMIX 11 MG IV (15:19)
[2023-09-28] MEDS: FUROsemide 10 mg/mL SDV 2mL 20 MG IVP (15:20)
--- NOTE | 2023-09-28 15:27 | P.PN_ITS ---
Subjective 2 Subjective: afebrile staff reports some auditory hallucinations Vitals/I&O/Wt Last Vital Signs Temp 97.7 F 09/28/23 08:00 Pulse 70 09/28/23 12:00 Resp 16 09/28/23 12:00 BP 120/62 09/28/23 12:00 Pulse Ox 96 09/28/23 12:00 O2 Del Method Room Air 09/28/23 12:00 09/28/23 09/28/23 09/28/23 06:59 14:59 22:59 Intake Total 400 / 1450 240 / 240 Output Total 1000 / 2250 Balance -600 / -800 240 / 240 Weight last 48 hrs Weight 205 lb 7 oz Weight 207 lb 7 oz Physical Exam 2 Const: COMMON NORMALS: no acute distress HENMT: COMMON NORMALS: normocephalic HEAD & SCALP: normocephalic Eye: COMMON NORMALS: Equal, round and reactive pupils present and EOMs intact bilaterally PUPIL: Yes Equal, round and reactive pupils present Neck/C-Spine: COMMON NORMALS: no JVD Resp: COMMON NORMALS: normal respiratory effort, No retractions, No use of accessory muscles and clear to auscultation bilaterally AUSCULTATION: clear to auscultation bilaterally Cardio: COMMON NORMALS: no JVD, regular rate, regular rhythm, S1 normal heart sound present and S2 normal heart sound present RATE: regular rate RHYTHM: regular rhythm HEART SOUNDS: S1 normal heart sound present and S2 normal heart sound present GI: COMMON NORMALS: Normal to inspection, nondistended, normoactive bowel sounds present, Soft to palpation and non-tender PALPATION: Yes Soft to palpation Extremity: COMMON NORMALS: no calf tenderness and no pedal edema Neuro: OTHER: Alert oriented x 3. Psych: COMMON NORMALS: mental status grossly normal Urinary Catheter Management: Vickers: Cath Placed During This Visit: yes Reason for Continuing Indwelling Catheter: Acute Urinary Retention or Obstruction Urinary Catheter Date of Insertion: 09/21/23 Urinary Catheter Time of Insertion: 23:04 Sepsis: Is patient septic: Yes Focused sepsis exam performed: Yes F ocused sepsis exam: DP PT pulses greater palpable, cap refill less than 2 seconds, no mottling Date exam was performed: 09/21/23 Time exam was performed: 20:00 Data 09/28/23 09:08 09/28/23 09:08 A&P Assessment and plan (1) Acute encephalopathy: (2) UTI (urinary tract infection): (3) NSTEMI (non-ST elevated myocardial infarction): (4) Sepsis: (5) Thrombocytopenia: (6) Pleural effusion: Plan Acute encephalopathy Hallucinations ? Likely secondary to UTI, sepsis ? Neurochecks, any stroke scale, aspiration precautions - echo done Complicated urinary tract infection, ? Likely associated with Vickers catheter ? While being on Rocephin, ampicillin ? Indicates multidrug-resistant organism, especially as he is at the custodial facility ? Plan ? Remove Vickers catheter, culture tip, placement of Vickers catheter?this was done ? Urine cultures ? Blood cultures ? Cover for ESBL meropenem ? Start vancomycin ? CT scan abdomen pelvis with IV contrast : 1. No hydronephrosis of either kidney. No visible renal or ureteral calculus. 2. Mild perinephric stranding bilaterally, see above discussion. 3. Prostate enlargement and suspected urinary bladder wall thickening, see above. 4. No free air or significant bowel distention. 5. Small amount of fluid in the posterior lower pelvis, not significantly changed. 6. Large bilateral pleural effusions and mild lower lung opacities, see above. 7. Small pericardial effusion. 8. Other findings discussed above. Sepsis, sepsis features met, given encephalopathy, source of infection, elevated troponins, elevated white blood cell count --repeat blood cx, cdiff pending Arm swelling --check US Pleural and pericardial effusion -- echocardiogram, IV Lasix, discussed with radiology. Anticipate thoracentesis on Wednesday or -- hold antiplatelet and anticoagulation NSTEMI ? No complaints of chest pain, no complaints of shortness of breath, chronically on Eliquis therapy ? Serial EKGs, serial troponins, telemetry monitoring ? Continue aspirin ? Continue eliquis - will consult cardiology History of TAVR History of appendicitis status post appendectomy History of atrial fibrillation on Eliquis therapy History of pacemaker placement Right PICC line in place Recent hospitalization for Enterococcus bacteremia, on Rocephin and ampicillin DNR DNI Attestations 2 Medical Necessity Statement*: Eddy Miner requires ongoing inpatient care for abx Coding Level of Care Code 85855 Diagnoses Acute encephalopathy G93.40 UTI (urinary tract infection) N39.0 NSTEMI (non-ST elevated myocardial infarction) I21.4 Sepsis A41.9 Thrombocytopenia D69.6 Pleural effusion J90
--- NOTE | 2023-09-28 15:39 | USCV_ITS ---
Eddy Miner Age: 87 Gender: M : 06/13/1936 Exam Date: 09/28/2023 19:21 Ordering Phys: Mimi Palm MD Technologist: HERNANDEZ Exam Location: [facility] [place] Indication: bilateral arm swelling. s/p RIGHT PICC line at mid humeral level 2-3 weeks ago per patient. HISTORY: bilateral arm swelling. s/p RIGHT PICC line at mid humeral level 2-3 weeks ago per patient. PROCEDURES: Venous duplex imaging was performed in bilateral upper extremities. The following venous structures were evaluated: internal jugular vein, subclavian vein, axillary vein, and brachial veins. In addition, the basilic vein, cephalic vein, radial veins, and ulnar veins. FINDINGS: PICC line noted in the right upper extremity, no thrombus associated with the PICC line. No upper extremity thrombus seen on either side. CONCLUSIONS No evidence for upper extremity deep venous thrombosis. Dr. Amelia Thompson DO (Electronically Signed) Final Date: 29 Sep 2023 07:26 S
[2023-09-28] MEDS: dutasteride 0.5 mg Capsule PO (18:09)
[2023-09-28 18:15] LABS: Fungitell 1-3-B Glucan Assay <31 pg/mL; Interpretation NEGATIVE
--- NOTE | 2023-09-28 19:45 | P.CONIM_ITS ---
Providers/Reason For Consult 2 Consulting Physician/Specialty*: LYDIA Guerin MD/cardiology Reason for Consult*: Patient with a recent aortic valve replacement/persistent elevated white cell count Requesting Physician: Dr. Palm Attending Physician: Mimi Palm MD Primary Care Provider: Shayla Mesa MD History of Present Illness History of Present Illness Eddy Miner is a 87 year old male with a history of chronic atrial fibrillation, permanent pacer implantation for symptomatic bradycardia, status post recent TAVR, status post emergency laparoscopic appendectomy for suppurative and gangrenous appendicitis, he is readmitted to the hospital through the emergency room where he presented with altered mental status. He was found to have elevated troponin T. His blood culture grew Enterococcus faecalis during the last hospital admission. He was treated with IV antibiotics and was discharged home on IV ampicillin and ceftriaxone. He continues to have elevated white cell count. He also was found to have significantly elevated inflammatory markers. He was found to have small pericardial effusion by echocardiogram. There was a concern of pericarditis/non-ST relation myocardial infarction. Cardiology consult is requested for further cardiac evaluation recommendations. This patient is admitted to the hospital last month, when he presented with complaints of progressive weakness, low-grade fever and generalized aches and pains. His blood culture grew Enterococcus faecalis from 1 out of 2 bottles. This patient apparently had a acute suppurative and gangrenous appendicitis for which he underwent emergency laparoscopic appendectomy on 23 of June. He was found to have a severe aortic valve stenosis by echocardiogram at that time. In the beginning of August he underwent TAVR at the [facility] in [place]. According to the patient and his , he has not been feeling that well ever since his appendectomy. He has not been having some amount of lethargy and weakness. However he felt strong enough to go for the aortic valve intervention. But after the intervention, he did not feel any better. He has been getting progressively weaker. He was having some neck rigidity and headache during this hospital admission for which he underwent a lumbar puncture. He has some signs of meningitis. The GABRIELA was done on the of last month and was found to have no intracardiac masses or vegetations. He has no previous history for any coronary disease, myocardial infarction or congestive heart failure. He has a history of chronic atrial fibrillation with? Symptomatic bradycardia. He has a permanent pacemaker and seems to be functioning okay. The pacemaker was placed in August of 2019 at the [facility] by Dr. England. He is on long-term oral anticoagulation. He has no previous history for endocarditis or osteomyelitis. Patient denies any chest pain. It is not clear whether he had any coronary intervention prior to the TAVR. Patient was brought back to the hospital because of the altered mental status confusion. He has no fever or chills. No severe cough. Denies any headache or blurring of vision. Review of Systems 2 Narrative: CONSTITUTIONAL: No fever or chills. [] EYES: No blurring of vision or other visual disturbances lately. ENT: No hoarseness of voice, auditory disturbances or sore throat. CARDIOVASCULAR: As mentioned above. RESPIRATORY: No significant cough. GASTROINTESTINAL: No hematemesis or melena. GENITOURINARY: Recurrent UTI INTEGUMENTARY: No skin rashes or history of skin cancer. NEURO: Altered mental status as mentioned above PSYCHIATRIC: No history of psychosis or major depression. HEMATOLOGIC: No bleeding disorders or significant anemia. ENDOCRINE: No history of polyuria or polydipsia. MUSCULOSKELETAL: No recent joint pain or swelling. ALLERGY/IMMUNOLOGY: As mentioned above. Medications/Allergies Home Medications Medication Instructions Recorded Confirmed Last Taken Type dutasteride 0.5 mg capsule 0.5 mg PO QPM 07/10/20 09/21/23 09/20/23 History multivitamin 1 tab PO QAM 01/24/22 09/21/23 09/21/23 History saw palmetto 160 mg capsule 160 mg PO TID 01/24/22 09/21/23 09/21/23 History turmeric 400 mg capsule 400 mg PO BID 01/24/22 09/21/23 09/21/23 History aspirin 81 mg tablet,delayed 81 mg PO QAM 02/25/22 09/21/23 09/21/23 History release (Adult Low Dose Aspirin) fluticasone propionate 50 2 spray intranasal DAILY PRN 09/01/22 09/21/23 06/22/23 07:00 History mcg/actuation nasal allergies spray,suspension loratadine 10 mg tablet 10 mg PO DAILY PRN allergies 09/01/22 09/21/23 09/21/23 History Custom Molded Copolymer Orthotics #1 ea 12/28/22 09/21/23 Unknown Rx and Orthopedic Shoes albuterol sulfate 90 mcg/actuation 2 puff inhalation BID PRN 03/02/23 09/21/23 09/21/23 History aerosol inhaler (ProAir HFA) Shortness Of Breath clobetasol 0.05 % topical cream See Rx Instructions .Route .COMPLEX 06/23/23 09/21/23 09/21/23 History cyclobenzaprine 10 mg tablet 10 mg PO TID PRN Muscle Spasm 06/23/23 09/21/23 09/01/23 03:30 History ferrous sulfate 325 mg (65 mg 325 mg PO DAILY 06/23/23 09/21/23 09/21/23 History iron) tablet (Iron (ferrous sulfate)) mometasone 200 mcg/actuation HFA 1 puff inhalation BID 06/23/23 09/21/23 09/21/23 History aerosol inhaler olodaterol 2.5 mcg/actuation mist 2 inh inhalation QAM 06/23/23 09/21/23 09/21/23 History for inhalation apixaban 5 mg tablet (Eliquis) 5 mg PO BID 08/19/23 09/21/23 09/21/23 History potassium gluconate 595 mg (99 mg) 595 mg PO QPM 08/19/23 09/21/23 09/20/23 History tablet ascorbic acid (vitamin C) 500 mg 500 mg PO DAILY 09/01/23 09/21/23 09/21/23 History tablet (Vitamin C) ashwagandha root extract 500 mg 500 mg PO DAILY 09/01/23 09/21/23 09/21/23 History capsule calcium carb 333 mg-vit D3 133 1 tab PO BID 09/01/23 09/21/23 09/21/23 History unit-mag ox 133 mg-zinc oxide 5 mg tab (Romie Mag Zinc Plus D3) coenzyme Q10 100 mg capsule 100 mg PO QAM 09/01/23 09/21/23 09/21/23 History (CoQ-10) cyanocobalamin (vitamin B-12) 1,000 mcg PO DAILY 09/01/23 09/21/23 09/21/23 History 1,000 mcg tablet (Vitamin B-12) gabapentin 300 mg capsule 300 mg PO TID 09/01/23 09/21/23 09/21/23 History montelukast 10 mg tablet 10 mg PO QPM 0409/21/23 09/20/23 History omeprazole magnesium 20 mg 20 mg PO QAM 09/01/23 09/21/23 09/21/23 History tablet,delayed release (Prilosec OTC) trazodone 50 mg tablet 50 mg PO BEDTIME 09/01/23 09/21/23 09/20/23 History losartan 50 mg tablet 50 mg PO DAILY #30 tabs 09/10/23 09/21/23 09/21/23 Rx ampicillin sodium 2 gram 2 g IV Q4H 09/21/23 09/21/23 09/21/23 History intravenous solution bisacodyl 10 mg rectal suppository 10 mg [place] DAILY PRN Constipation 09/21/23 09/21/23 Unknown History (Dulcolax (bisacodyl)) ceftriaxone 1 gram intravenous 1 g IV Q24H 09/21/23 09/21/23 09/21/23 History solution cholecalciferol (vitamin D3) 25 25 mcg PO DAILY 09/21/23 09/21/23 09/21/23 History mcg (1,000 unit) tablet magnesium hydroxide 400 mg/5 mL 30 ml PO DAILY PRN Constipation 09/21/23 09/21/23 Unknown History oral suspension (Milk of Magnesia) polyethylene glycol 3350 17 17 g PO DAILY 09/21/23 09/21/23 Unknown History gram/dose oral powder (Miralax) sodium chloride 0.9 % See Rx Instructions .Route .COMPLEX 09/21/23 09/21/23 09/21/23 History sodium phosphates 19 gram-7 118 ml [place] DAILY PRN Constipation 09/21/23 09/21/23 Unknown History gram/118 mL enema (Fleet Enema) Allergies Allergy/AdvReac Type Severity Reaction Status Date / Time Sulfa (Sulfonamide Allergy Unknown unknown Verified 08/23/23 10:20 Antibiotics) amlodipine Allergy Unknown Verified 08/31/23 16:10 amoxicillin Allergy ALGY-Rash Verified 08/23/23 10:20 Iodinated Contrast Media Allergy Unknown Verified 08/23/23 10:20 Current Medications Generic Name Dose Route Start Last Admin Trade Name Freq PRN Reason Stop Dose Admin Albuterol/Ipratropium 3 ml 09/21/23 22:56 09/28/23 11:19 Ipratropium-Albuterol 3 Ml Neb INHALATION 3 ml Q6H.RESP PRN Administration SHORTNESS OF BREATH Apixaban 5 mg 09/23/23 21:00 09/27/23 08:43 Apixaban 5 Mg Tablet PO 5 mg BID@0900,2100 TERENCE Administration Aspirin 81 mg 09/22/23 06:00 09/27/23 05:15 Aspirin 81 Mg Ec Tablet PO 81 mg QAM TERENCE Administration Dutasteride 0.5 mg 09/22/23 18:00 09/28/23 18:09 Dutasteride 0.5 Mg Capsule PO 0.5 mg QPM TERENCE Administration Furosemide 20 mg 09/27/23 14:45 09/28/23 15:20 Furosemide 10 Mg/Ml Sdv 2ml IVP 20 mg Q24H TERENCE Administration Gabapentin 300 mg 09/21/23 21:00 09/28/23 15:20 Gabapentin 300 Mg Capsule PO 300 mg TID TERENCE Administration Hydralazine HCl 50 mg 09/26/23 15:00 09/28/23 15:20 Hydralazine 50 Mg Tablet PO 50 mg TID TERENCE Administration Meropenem 1,000 mg/ Sodium 50 mls @ 100 mls/hr 09/21/23 22:00 09/28/23 15:49 Chloride IV Infused Q8H TERENCE Infusion Protocol Fluconazole 200 mg in 100 mls @ 100 mls/hr 09/23/23 13:15 09/28/23 15:19 Diflucan Premix IV 11 mls/hr Q24H TERENCE Administration Vancomycin/PEG/NADA/Lysine/Water 1,250 mg in 250 mls @ 250 mls/hr 09/26/23 15:00 09/28/23 05:22 Vancocin IV Infused Q18H TERENCE Infusion Losartan Potassium 100 mg 09/24/23 08:30 09/28/23 09:08 Losartan 50 Mg Tablet PO 100 mg DAILY TERENCE Administration Metoprolol Tartrate 25 mg 09/23/23 01:00 09/28/23 09:08 Metoprolol Tartrate 25 Mg Tablet PO 25 mg BID@0900,2100 TERENCE Administration Pantoprazole Sodium 40 mg 09/21/23 20:38 09/27/23 20:53 Pantoprazole 40 Mg Sdv IVP 40 mg Q24H TERENCE Administration Polyethylene Glycol 17 gm 09/22/23 09:00 09/28/23 09:08 Polyethylene Glycol 3350 Pkt 17 Gm PO 17 gm DAILY TERENCE Administration Potassium Chloride 40 meq 09/28/23 09:00 09/28/23 09:08 Potassium Chloride Er 20 Meq Tablet PO 40 meq DAILY TERENCE Administration Potassium Phosphate 250 mg 09/27/23 18:00 09/28/23 18:09 Phosphorus 250 Mg Tablet PO 250 mg BID TERENCE Administration Trazodone HCl 50 mg 09/21/23 21:00 09/27/23 21:22 Trazodone 50 Mg Tablet PO 50 mg BEDTIME TERENCE Administration PFSH Acute 2 PFSH: Medical History Afib Presence of permanent cardiac pacemaker Severe aortic stenosis History of nonmelanoma skin cancer Pain in right lower leg Lower extremity edema Pacemaker Hypertension Surgical History Status post transcatheter aortic valve replacement (TAVR) using bioprosthesis Status post laparoscopic appendectomy S/P cardiac pacemaker procedure S/P knee surgery S/P vasectomy Family History Mother Myocardial infarction Social History Smoking and tobacco/nicotine status: former use of tobacco/nicotine Alcohol intake: never Substance/Drug Use: never Vitals/I&O/Wt Last Vital Signs Temp 98.0 F 09/28/23 16:00 Pulse 83 09/28/23 16:00 Resp 17 09/28/23 16:00 BP 148/83 09/28/23 16:00 Pulse Ox 95 09/28/23 16:00 O2 Del Method Room Air 09/28/23 12:00 09/28/23 09/28/23 09/28/23 06:59 14:59 22:59 Intake Total 400 / 1450 480 / 480 290 / 770 Output Total 1000 / 2250 Balance -600 / -800 480 / 480 290 / 770 Weight last 48 hrs Weight 205 lb 7 oz Weight 207 lb 7 oz Physical Exam 2 Narrative: GENERAL: The patient is alert and oriented to person. Not in any acute distress. HEENT: Moderate pallor. No icterus or lymphadenopathy.Oral cavity: There are no mucous membrane lesions. NECK: Trachea appears to be central. No masses noted. No JVD or thyromegaly appreciated. RESPIRATORY: Chest is symmetrical. No intercostals muscle retraction or any accessory muscle activation. There is no chest wall tenderness. Breath sounds are heard bilaterally. No rales or rhonchi heard. No evidence of any consolidation. BREASTS: Deferred. HEART: The heart sounds are normal. No S3 or S4. No significant murmurs. No pericardial rub ABDOMEN: No vessel pulsations or distention. No tenderness. No organomegaly appreciated. Bowel sounds are normally heard. : Deferred. RECTAL: Deferred. LYMPHATIC: No lymphadenopathy noted in the neck. EXTREMITIES: No edema or cyanosis. No clubbing. MUSCULOSKELETAL: No acute joint deformities or swelling SKIN: There are no significant rashes or ecchymosis NEUROPSYCHIATRIC: The patient is alert oriented to person. No focal motor deficits noted. Urinary Catheter Management: Vickers: Cath Placed During This Visit: yes Reason for Continuing Indwelling Catheter: Acute Urinary Retention or Obstruction Urinary Catheter Date of Insertion: 09/21/23 Urinary Catheter Time of Insertion: 23:04 Data 09/29/23 06:09 09/29/23 06:09 Other Labs: Laboratory Last Values WBC 22.20 10^3/uL (3.29-11.43) H 09/28/23 09:08 RBC 3.48 10^6/uL (3.85-5.65) L 09/28/23 09:08 Hgb 11.70 g/dL (11.27-16.99) 09/28/23 09:08 Hct 36.2 % (37-53) L 09/28/23 09:08 MCV 104.0 fl (82-101) H 09/28/23 09:08 MCH 33.6 pg (27-33) H 09/28/23 09:08 MCHC 32.3 g/dL (30-55) 09/28/23 09:08 RDW 17.3 % (12.1-15.1) H 09/28/23 09:08 Plt Count 58 10^3/cmm (157-399) L 09/28/23 09:08 MPV 10.3 fL (7.4-10.4) 09/28/23 09:08 Neut % (Auto) 45.0 % 09/28/23 09:08 Lymph % (Auto) 49.6 % 09/28/23 09:08 [place] % (Auto) 4.0 % 09/28/23 09:08 Eos % (Auto) 0.5 % 09/28/23 09:08 Baso % (Auto) 0.3 % 09/28/23 09:08 Neut # (Auto) 9.98 10^3/uL (1.8-7.7) H 09/28/23 09:08 Lymph # (Auto) 11.0 10^3/uL (0.8-4.8) H 09/28/23 09:08 [place] # (Auto) 0.9 10^3/uL (0.2-0.9) 09/28/23 09:08 Eos # (Auto) 0.1 10^3/uL (0.0-0.8) 09/28/23 09:08 Baso # (Auto) 0.1 10^3/uL (0.0-0.1) 09/28/23 09:08 Nucleated RBC % (auto) 0 % 09/28/23 09:08 Nucleated RBCs # 0.0 /100WBC 09/28/23 09:08 APTT 135.4 SECONDS (23.9-36.7) H D 09/23/23 13:50 Sodium 140 mmol/L (136-145) 09/28/23 09:08 Potassium 3.6 mmol/L (3.5-5.1) 09/28/23 09:08 Chloride 106 mmol/L (98-107) 09/28/23 09:08 Carbon Dioxide 26 mmol/L (22-29) 09/28/23 09:08 Anion Gap 11.6 (5-19) 09/28/23 09:08 BUN 16 mg/dL (8-23) 09/28/23 09:08 Creatinine 0.6 mg/dL (0.7-1.2) L 09/28/23 09:08 GFR Calculation Not Reportable 09/28/23 09:08 Glucose 133 mg/dL (65-115) H 09/28/23 09:08 POC Glucose 105 mg/dL (70-110) 09/25/23 10:39 Calculated Osmolality 293 mOsm/kg (285-295) 09/28/23 09:08 Lactic Acid 1.6 mmol/L (0.5-2.2) 09/21/23 16:50 Calcium 8.5 mg/dL (8.5-10.5) 09/28/23 09:08 Phosphorus 2.1 mg/dL (2.5-4.5) L 09/27/23 11:55 Magnesium 1.8 mg/dL (1.7-2.3) 09/27/23 11:55 Total Bilirubin 1.9 mg/dL (0.15-1.2) H 09/28/23 09:08 AST 41 U/L (0-40) H 09/28/23 09:08 ALT 20 U/L (0-41) 09/28/23 09:08 Alkaline Phosphatase 230 U/L (40-130) H 09/28/23 09:08 Creatine Kinase 26 U/L (39-308) L 09/27/23 11:55 Troponin T 5th Gen ng/L 165 ng/L (0-15) H* 09/27/23 11:55 Troponin T Baseline 112 ng/L (0-15) H* 09/21/23 16:50 Troponin T 120 Minute 120.0 ng/L (0-15) H 09/21/23 19:02 Delta Troponin T 8.0 ABS# (0-10) 09/21/23 19:02 Troponin T Hi Sens 6Hr 113.4 ng/L (0-15) H 09/21/23 23:13 Troponin T Hi Sens 6Hr Delta 1.4 ng/L (0-12) 09/21/23 23:13 C-Reactive Protein 117.9 mg/L (0.0-4.9) H 09/28/23 09:08 Total Protein 4.9 g/dL (6.6-8.7) L 09/28/23 09:08 Albumin 2.4 g/dL (3.5-5.2) L 09/28/23 09:08 Globulin 2.5 g/dL (1.3-4.6) 09/28/23 09:08 Folate 17.7 ng/mL (4.5-32.2) 09/25/23 20:43 Procalcitonin 0.07 ng/mL (0-0.5) 09/21/23 19:02 TSH 2.98 uIU/mL (0.27-4.20) 09/21/23 19:02 Urine Color Dark yellow (Yellow) 09/21/23 18:20 Urine Appearance Cloudy (CLEAR) A 09/21/23 18:20 Urine pH 6 (5-7) 09/21/23 18:20 Ur Specific [place] 1.015 (1.005-1.030) 09/21/23 18:20 Urine Protein 1+ (Negative) H 09/21/23 18:20 Urine Glucose (UA) Norm (Normal) 09/21/23 18:20 Urine Ketones Negative (Negative) 09/21/23 18:20 Urine Blood 3+ (Negative) H 09/21/23 18:20 Urine Nitrate Negative (Negative) 09/21/23 18:20 Urine Bilirubin Neg (Negative) 09/21/23 18:20 Urine Urobilinogen Norm mg/dL (Negative) 09/21/23 18:20 Ur Leukocyte Esterase 2+ (Negative) H 09/21/23 18:20 Urine RBC >100 /hpf (0-2) H 09/21/23 18:20 Urine WBC >100 /hpf (0-5) H 09/21/23 18:20 Ur Squamous Epith Cells Rare /hpf (0-5) 09/21/23 18:20 Amorphous Sediment Not Reportable 09/21/23 18:20 Urine Bacteria Trace /hpf (NONE) 09/21/23 18:20 Urine Mucus Trace /hpf 09/21/23 18:20 Urine Yeast 4+ /hpf H 09/21/23 18:20 Vancomycin Trough 22.7 ug/mL (10-15) H 09/26/23 08:51 Beta-(1,3)-D-Glucan <31 pg/mL 09/24/23 09:30 B-(1,3)-D-Glucan Intrp Negative 09/24/23 09:30 Other data: EKG from 09/27/2023 revealed Atrial fibrillation with demand V pacing. Nonspecific IVCD. No acute ST-T changes. transthoracic echocardiogram from yesterday Normal LV size ejection fraction of around 50%, (visual). Moderate concentric left ventricular hypertrophy.abnormal septal motion consistent with pacemaker. Grade III/IV diastolic dysfunction (restrictive filling pattern), severely elevated filling pressures. Moderately increased left atrial size. Mildly increased right atrial size. The bioprosthetic valve the aortic position appears to be well- seated. Mild to moderate eccentric aortic regurgitation. Peak velocity of the aortic valve was 2.07 m/s with a peak gradient of 17 and a mean gradient of 8 mmHg. Trace to mild tricuspid valve regurgitation. Mild pulm hypertension with an estimated pulmonary artery peak systolic pressure 44 mmHg. Mild pulmonary valve regurgitation. Features of small pericardial effusion Possibly large left-sided pleural effusion Pacemaker wire in the right atrium and right ventricle Compared to the previous study from 09/01/2023, there is slightly more pericardial effusion(from trivial to small) EKG from today revealed Atrial fibrillation with demand V paced rhythm. GABRIELA on 09/06/2023 1. No masses or vegetations on the valves including the bioprosthetic valve at the aortic position. 2. No intracardiac masses noted. 3. Moderate mitral regurgitation with mild tricuspid regurgitation. 4. Left atrial appendage is found to be of normal size with diminished contractility. 5. Intact atrial septum with no PFO or ASD by color-flow Doppler examination No similar previous studies are available for c A&P Assessment and plan (1) Elevated troponin: Patient has elevated troponin T with no significant delta. Possibility of sepsis causing this is a consideration. And non-ST elevation myocardial infarction cannot be excluded. It is not clear at this point whether this patient had any significant coronary disease or not. We will try to get the medical records from the [facility]. He does not seem to have any evidence of pericarditis. The EKG is unremarkable. Patient has no chest pain or pericardial rub. (2) Status post transcatheter aortic valve replacement (TAVR) using bioprosthesis: Valve function appears to be appropriate. May continue on the current management. Repeat GABRIELA to rule out any endocarditis may be appropriate, if everything else is excluded. (3) Chronic atrial fibrillation: Continue on the current medications. Patient is on long-term oral anticoagulation. (4) Sepsis: Patient is being treated for urosepsis. Other etiologies cannot be excluded. C. difficile also is a consideration. He has a large pleural effusion may suggest pulmonary infective process. Qualifiers: Sepsis acute organ dysfunction status: without acute organ dysfunction Sepsis type: sepsis due to unspecified organism Qualified Code(s): A41.9 - Sepsis, unspecified organism (5) UTI (urinary tract infection): Patient has a history of recurrent UTI. Qualifiers: Urinary tract infection type: catheter-associated UTI Indwelling urinary catheter type: unspecified Encounter type: sequela Qualified Code(s): T83.511S - Infection and inflammatory reaction due to indwelling urethral catheter, sequela; N39.0 - Urinary tract infection, site not specified (6) Large pleural effusion: The etiology is not clear. The pleural fluid needs to be started. Consult Attestations 2 Medical Necessity Statement: Will try to get the medical records from [facility] the specifically the cardiac catheterization data. Thoracentesis and pleural fluid studies would be appropriate. May consider repeat GABRIELA to rule out endocarditis may be considered Based on the clinical progress, further recommendations will be made Thank you for the opportunity to evaluate this patient and make these recommendations Coding Level of Care Code 88109 Diagnoses Elevated troponin R79.89 Status post transcatheter aortic valve replacement (TAVR) using bioprosthesis Z95.3 Chronic atrial fibrillation I48.20 Sepsis without acute organ dysfunction, due to unspecified organism A41.9 Sepsis acute organ dysfunction status: without acute organ dysfunction Sepsis type: sepsis due to unspecified organism Urinary tract infection associated with catheterization of urinary tract, unspecified indwelling urinary catheter type, sequela T83.511S; N39.0 Urinary tract infection type: catheter-associated UTI Indwelling urinary catheter type: unspecified Encounter type: sequela Large pleural effusion J90
[2023-09-28] MEDS: pantoprazole 40 mg SDV IVP (20:26)
[2023-09-28] MEDS: trazodone 50 mg Tablet PO (20:27)
[2023-09-29] VITALS (13 sets, daily range): BP systolic 118–171; BP diastolic 60–78; PULSE 62–90; RESP 17–20; TEMP 36.5–36.8; O2SAT 90–98; BMI 28.6
[2023-09-29] MEDS: meropenem 1,000 MG in sodium chloride 0.9% (plus) 50 ML 100 MG IV ×3 (05:40→21:28)
[2023-09-29 06:28] LABS: Basophils # 0.1 10^3/uL (0.0-0.1); Basophils % 0.3 %; Eosinophils # 0.2 10^3/uL (0.0-0.8); Hematocrit 31.8 % (37-53); Lymphocytes # 9.9 10^3/uL (0.8-4.8); Lymphocytes % 49.5 %; Mean Corpuscular HGB Conc 32.7 g/dL (30-55); Mean Corpuscular Hemoglobin 33.7 pg (27-33); Mean Corpuscular Volume 102.9 fl (82-101); Mean Platelet Volume 10.5 fL (7.4-10.4); Monocytes % 5.1 %; Neutrophils # 8.72 10^3/uL (1.8-7.7); Neutrophils % 43.6 %; Nucleated Red Blood Cells % 0 %; Platelet Count 52 10^3/cmm (157-399); Red Blood Count 3.09 10^6/uL (3.85-5.65); White Blood Count 20.02 10^3/uL (3.29-11.43)
[2023-09-29 06:50] LABS: Alanine Aminotransferase 24 U/L (0-41); Albumin Level 2.3 g/dL (3.5-5.2); Alkaline Phosphatase 221 U/L (40-130); Blood Urea Nitrogen 17 mg/dL (8-23); Calcium 8.4 mg/dL (8.5-10.5); Carbon Dioxide 27 mmol/L (22-29); Chloride 104 mmol/L (98-107); Creatinine Clr Calc Pharmacy 75.8463; Globulin 2.2 g/dL (1.3-4.6); Glucose 109 mg/dL (65-115); Osmolality Calculated 288 mOsm/kg (285-295); Sodium 138 mmol/L (136-145); Total Bilirubin 1.5 mg/dL (0.15-1.2); Total Protein 4.5 g/dL (6.6-8.7)
[2023-09-29 07:04] LABS: Anion Gap 10.3 (5-19); Aspartate Amino Transferase 45 U/L (0-40); Potassium 3.3 mmol/L (3.5-5.1)
[2023-09-29 07:47] LABS: Slide Review Slide Review Perform
[2023-09-29] MEDS: gabapentin 300 mg Capsule PO ×3 (09:41→21:28)
[2023-09-29] MEDS: losartan 50 mg Tablet 100 MG PO (09:41)
[2023-09-29] MEDS: polyethylene glycol 3350 Pkt 17 gm PO (09:42)
[2023-09-29] MEDS: potassium chloride ER 20 mEq Tablet 40 MEQ PO (09:42)
[2023-09-29] MEDS: metoprolol tartrate 25 mg Tablet PO ×2 (09:42→21:27)
[2023-09-29] MEDS: phosphorus 250 mg Tablet PO ×2 (09:42→17:11)
--- NOTE | 2023-09-29 09:47 | US_ITS ---
WS: [id number] RIGHT UPPER QUADRANT ULTRASOUND HISTORY: inc bilirubin, ast COMPARISON: 09/01/2023 Liver: 13.2 cm in length. Normal size liver and echogenicity. No bile duct dilatation or mass. Portal Vein: Poorly visualized. Gallbladder: Sludge within the gallbladder. No stones. No wall thickening. CBD: 0.7 cm Pancreas: Completely obscured. Right kidney: 11.7 cm in length. Normal size and echogenicity. No hydronephrosis or mass. Aorta and IVC: Obscured. No ascites. US/US abdomen limited [id number] IMPRESSION: 1. Sludge within the gallbladder. No stones identified. No wall thickening. 2. Common bile duct is top normal size. 3. No ascites.
--- NOTE | 2023-09-29 09:48 | PC.SOCIAL ---
IMM Update pg 2 of IMM updated and reviewed w/ patients . Copy provided and copy dated, initialed and placed in chart.
[2023-09-29 11:28] LABS: INR 1.49 (0.8-1.2)
--- NOTE | 2023-09-29 13:32 | PC.NURSE ---
US here to perform thoracentesis. Dr. Zavala yet to arrive. VS stable.
--- NOTE | 2023-09-29 13:59 | P.PN_ITS ---
Subjective 2 Subjective: resting comfortably afebrile plan for thoracentesis today Vitals/I&O/Wt Last Vital Signs Temp 97.9 F 09/29/23 12:00 Pulse 71 09/29/23 13:32 Resp 20 H 09/29/23 13:32 BP 152/77 09/29/23 13:32 Pulse Ox 96 09/29/23 13:32 O2 Del Method Room Air 09/29/23 13:32 09/28/23 09/29/23 09/29/23 22:59 06:59 14:59 Intake Total 640 / 1120 100 / 1220 480 / 480 Output Total 300 / 300 800 / 800 Balance 640 / 1120 -200 / 920 -320 / -320 Weight last 48 hrs Weight 205 lb 4.8 oz Weight 205 lb 7 oz Physical Exam 2 Const: COMMON NORMALS: no acute distress HENMT: COMMON NORMALS: normocephalic HEAD & SCALP: normocephalic Eye: COMMON NORMALS: Equal, round and reactive pupils present and EOMs intact bilaterally PUPIL: Yes Equal, round and reactive pupils present Neck/C-Spine: COMMON NORMALS: no JVD Resp: COMMON NORMALS: normal respiratory effort, No retractions, No use of accessory muscles and clear to auscultation bilaterally AUSCULTATION: clear to auscultation bilaterally Cardio: COMMON NORMALS: no JVD, regular rate, regular rhythm, S1 normal heart sound present and S2 normal heart sound present RATE: regular rate RHYTHM: regular rhythm HEART SOUNDS: S1 normal heart sound present and S2 normal heart sound present GI: COMMON NORMALS: Normal to inspection, nondistended, normoactive bowel sounds present, Soft to palpation and non-tender PALPATION: Yes Soft to palpation Extremity: COMMON NORMALS: no calf tenderness and no pedal edema Neuro: OTHER: Alert oriented x 3. Psych: COMMON NORMALS: mental status grossly normal Urinary Catheter Management: Vickers: Cath Placed During This Visit: yes Reason for Continuing Indwelling Catheter: Acute Urinary Retention or Obstruction Urinary Catheter Date of Insertion: 09/21/23 Urinary Catheter Time of Insertion: 23:04 Sepsis: Is patient septic: Yes Focused sepsis exam performed: Yes F ocused sepsis exam: DP PT pulses greater palpable, cap refill less than 2 seconds, no mottling Date exam was performed: 09/21/23 Time exam was performed: 20:00 Data 09/29/23 06:09 09/29/23 06:09 Micro: Microbiology 09/29/23 09:42 Blood Culture - Preliminary Blood SPECIMEN COLLECTED 09/29/23 09:35 Blood Culture - Preliminary Blood SPECIMEN COLLECTED 09/24/23 09:24 Blood Culture - Final Blood NO GROWTH AFTER 5 DAYS 09/24/23 09:30 Blood Culture - Final Blood NO GROWTH AFTER 5 DAYS A&P Assessment and plan (1) Acute encephalopathy: (2) UTI (urinary tract infection): (3) NSTEMI (non-ST elevated myocardial infarction): (4) Sepsis: (5) Thrombocytopenia: (6) Pleural effusion: Plan Acute encephalopathy Hallucinations ? Likely secondary to UTI, sepsis ? Neurochecks, any stroke scale, aspiration precautions - echo done Complicated urinary tract infection, ? Likely associated with Vickers catheter ? While being on Rocephin, ampicillin ? Indicates multidrug-resistant organism, especially as he is at the custodial facility ? Plan ? Remove Vickers catheter, culture tip, placement of Vickers catheter?this was done ? Urine cultures ? Blood cultures ? Cover for ESBL meropenem ? Start vancomycin ? CT scan abdomen pelvis with IV contrast : 1. No hydronephrosis of either kidney. No visible renal or ureteral calculus. 2. Mild perinephric stranding bilaterally, see above discussion. 3. Prostate enlargement and suspected urinary bladder wall thickening, see above. 4. No free air or significant bowel distention. 5. Small amount of fluid in the posterior lower pelvis, not significantly changed. 6. Large bilateral pleural effusions and mild lower lung opacities, see above. 7. Small pericardial effusion. 8. Other findings discussed above. Sepsis, sepsis features met, given encephalopathy, source of infection, elevated troponins, elevated white blood cell count --repeat blood cx, cdiff pending --start PO Vanc --will check serologies for high inflammatory markers Arm swelling --check US--pending Pleural and pericardial effusion -- echocardiogram, IV Lasix, discussed with radiology. Anticipate thoracentesis on Wednesday or -- hold antiplatelet and anticoagulation NSTEMI ? No complaints of chest pain, no complaints of shortness of breath, chronically on Eliquis therapy ? Serial EKGs, serial troponins, telemetry monitoring ? Continue aspirin ? Continue eliquis - consult cardiology History of TAVR History of appendicitis status post appendectomy History of atrial fibrillation on Eliquis therapy History of pacemaker placement Right PICC line in place Recent hospitalization for Enterococcus bacteremia, on Rocephin and ampicillin DNR DNI Attestations 2 Medical Necessity Statement*: Eddy Miner requires ongoing inpatient care for thoracentesis, antibiotics Coding Level of Care Code 26043 Diagnoses Acute encephalopathy G93.40 UTI (urinary tract infection) N39.0 NSTEMI (non-ST elevated myocardial infarction) I21.4 Sepsis A41.9 Thrombocytopenia D69.6 Pleural effusion J90
--- NOTE | 2023-09-29 13:59 | XR_ITS ---
WS: [id number] CHEST XRAY TECHNIQUE: Portable chest. CLINICAL INFORMATION: s/p right thora COMPARISON: 09/27/2023 FINDINGS: Stable RIGHT PICC line. Heart: Cardiomegaly. Aortic calcification. Cardiac pacer. Aortic valve. Lungs: Resolved RIGHT pleural effusion status post thoracentesis. No pneumothorax. Small LEFT pleural effusion. Bones: Osteopenia. XR/XR chest 1V portable [id number] IMPRESSION: Resolved RIGHT pleural effusion status post thoracentesis. No pneumothorax.
--- NOTE | 2023-09-29 14:01 | PC.NURSE ---
right thora complete. 1000ml off of clear yellow fluid. Pt tolerated well. VS remain stable. Portable chest ordered at this time
[2023-09-29 14:26] LABS: Body Fluid Polynuclear #Cells 0.075; Body Fluid WBC 250 /uL; Monocytes # Body Fluid 0.175
[2023-09-29 14:36] LABS: Cyto Order Verification No Order; PATH Referral YES
[2023-09-29 14:37] LABS: Apprearance, Body Fluid CLOUDY; Color, Body Fluid PALE YELLOW; Fluid Laterality PLEURAL FLUID
--- NOTE | 2023-09-29 14:52 | US_ITS ---
WS: [id number] ULTRASOUND-GUIDED RIGHT THORACENTESIS CLINICAL INFORMATION: pleural effusion PROCEDURE: Informed consent: The risks, benefits, and alternatives of the procedure were discussed with the luis ent. Verbal and written consent was obtained. Timeout: A timeout was performed to confirm the correct patient, procedure, and site. Site: RIGHT chest Preparation: A suitable skin site was identified. The patient was prepped and draped in usual sterile fashion. Lidocaine 1% was used for local anesthesia. Catheter: 4 [place]vian One-Step catheter. Fluid Volume: 1000 ml Color: Clear yellow Fluid sent for requested diagnostic tests. Complications: None. / thoracentesis [id number] IMPRESSION: Uncomplicated ultrasound-guided RIGHT thoracentesis.
[2023-09-29 14:58] LABS: Albumin Body Fluid 0.6 g/dL; LDH Body Fluid 88 U/L; Total Protein Pleural Fluid 0.8 g/dL
[2023-09-29] MEDS: fluconazole premix 200 MG/100 ML PREMIX 100 MG IV (15:03)
[2023-09-29] MEDS: hyDRALAzine 50 mg Tablet PO ×2 (15:14→21:27)
[2023-09-29] MEDS: FUROsemide 10 mg/mL SDV 2mL 20 MG IVP (15:14)
[2023-09-29] MEDS: vancomycin 125 mg Capsule PO ×2 (15:14→21:27)
[2023-09-29 15:20] LABS: Creatine Phosphokinase 22 U/L (39-308); Vancomycin Trough 17.9 ug/mL (10-15)
[2023-09-29] MEDS: vancomycin 1,250 MG/250 ML PIGGYBACK 250 MG IV (17:10)
[2023-09-29] MEDS: dutasteride 0.5 mg Capsule PO (17:11)
--- NOTE | 2023-09-29 18:02 | PM.PN ---
Subjective Subjective: The patient seem to be improving. Still he appears to be confused. Remains afebrile. The white cell count remains elevated. He is on multiple antibiotics. Also is being treated for possible C. difficile. Medications: Medication Review Details: Current Medications Acetaminophen (Acetaminophen 325 Mg Tablet) 650 mg PO Q6H PRN PRN Reason: Mild/Mod Pain Or Temp >/= 101 Albuterol/Ipratropium (Ipratropium-Albuterol 3 Ml Neb) 3 ml INHALATION Q6H.RESP PRN PRN Reason: SHORTNESS OF BREATH Last Admin: 09/28/23 11:19 Dose: 3 ml Apixaban (Apixaban 5 Mg Tablet) 5 mg PO BID@0900,2100 [facility] Last Admin: 09/27/23 08:43 Dose: 5 mg Aspirin (Aspirin 81 Mg Ec Tablet) 81 mg PO QAM [facility] Last Admin: 09/27/23 05:15 Dose: 81 mg Dutasteride (Dutasteride 0.5 Mg Capsule) 0.5 mg PO QPM [facility] Last Admin: 09/29/23 17:11 Dose: 0.5 mg Furosemide (Furosemide 10 Mg/Ml Sdv 2ml) 20 mg IVP Q24H [facility] Last Admin: 09/29/23 15:14 Dose: 20 mg Gabapentin (Gabapentin 300 Mg Capsule) 300 mg PO TID [facility] Last Admin: 09/29/23 15:14 Dose: 300 mg Hydralazine HCl (Hydralazine 50 Mg Tablet) 50 mg PO TID [facility] Last Admin: 09/29/23 15:14 Dose: 50 mg Meropenem 1,000 mg/ Sodium (Chloride) 50 mls @ 100 mls/hr IV Q8H [facility]; Protocol Last Infusion: 09/29/23 15:08 Dose: Infused Fluconazole (Diflucan Premix) 200 mg in 100 mls @ 100 mls/hr IV Q24H [facility] Last Infusion: 09/29/23 16:22 Dose: Infused Vancomycin/PEG/NADA/Lysine/Water (Vancocin) 1,250 mg in 250 mls @ 250 mls/hr IV Q18H [facility] Last Admin: 09/29/23 17:10 Dose: 250 mls/hr Losartan Potassium (Losartan 50 Mg Tablet) 100 mg PO DAILY [facility] Last Admin: 09/29/23 09:41 Dose: 100 mg Metoprolol Tartrate (Metoprolol Tartrate 25 Mg Tablet) 25 mg PO BID@0900,2100 [facility] Last Admin: 09/29/23 09:42 Dose: 25 mg Ondansetron HCl (Ondansetron 2 Mg/Ml Sdv 2 Ml) 4 mg IVP Q6H PRN PRN Reason: NAUSEA AND VOMITING Pantoprazole Sodium (Pantoprazole 40 Mg Sdv) 40 mg IVP Q24H [facility] Last Admin: 09/28/23 20:26 Dose: 40 mg Polyethylene Glycol (Polyethylene Glycol 3350 Pkt 17 Gm) 17 gm PO DAILY [facility] Last Admin: 09/29/23 09:42 Dose: 17 gm Potassium Chloride (Potassium Chloride Er 20 Meq Tablet) 40 meq PO DAILY [facility] Last Admin: 09/29/23 09:42 Dose: 40 meq Potassium Phosphate (Phosphorus 250 Mg Tablet) 250 mg PO BID [facility] Last Admin: 09/29/23 17:11 Dose: 250 mg Trazodone HCl (Trazodone 50 Mg Tablet) 50 mg PO BEDTIME [facility] Last Admin: 09/28/23 20:27 Dose: 50 mg Vancomycin HCl (Vancomycin 125 Mg Capsule) 125 mg PO Q6H [facility] Last Admin: 09/29/23 15:14 Dose: 125 mg Vitals/I&O/Wt Last Vital Signs Temp 98.3 F 09/29/23 16:00 Pulse 83 09/29/23 16:00 Resp 18 09/29/23 16:00 BP 141/74 09/29/23 16:00 Pulse Ox 95 09/29/23 16:00 O2 Del Method Room Air 09/29/23 16:00 09/29/23 09/29/23 09/29/23 06:59 14:59 22:59 Intake Total 100 / 1220 480 / 480 210 / 690 Output Total 300 / 300 800 / 800 1000 / 1800 Balance -200 / 920 -320 / -320 -790 / -1110 Weight last 48 hrs Weight 205 lb 4.8 oz Weight 205 lb 7 oz Physical Exam Narrative: GENERAL: The patient is alert and oriented to person. Not in any acute distress. HEENT: Moderate pallor. No icterus or lymphadenopathy.Oral cavity: There are no mucous membrane lesions. NECK: Trachea appears to be central. No masses noted. No JVD or thyromegaly appreciated. RESPIRATORY: Chest is symmetrical. No intercostals muscle retraction or any accessory muscle activation. There is no chest wall tenderness. Breath sounds are heard bilaterally. No rales or rhonchi heard. No evidence of any consolidation. BREASTS: Deferred. HEART: The heart sounds are normal. No S3 or S4. Short ejection systolic murmur at the aortic area. No diastolic murmurs. No pericardial rub ABDOMEN: No vessel pulsations or distention. No tenderness. No organomegaly appreciated. Bowel sounds are normally heard. : Deferred. RECTAL: Deferred. LYMPHATIC: No lymphadenopathy noted in the neck. EXTREMITIES: No edema or cyanosis. No clubbing. MUSCULOSKELETAL: No acute joint deformities or swelling SKIN: There are no significant rashes or ecchymosis NEUROPSYCHIATRIC: The patient is alert oriented to person. No focal motor deficits noted. Urinary Catheter Management: Vickers: Cath Placed During This Visit: yes Reason for Continuing Indwelling Catheter: Acute Urinary Retention or Obstruction Urinary Catheter Date of Insertion: 09/21/23 Urinary Catheter Time of Insertion: 23:04 Data 09/29/23 06:09 09/29/23 06:09 Other Labs: Laboratory Results - last 24 hr 09/24/23 09/28/23 09/28/23 09:30 19:46 Unknown WBC RBC Hgb Hct MCV MCH MCHC RDW Plt Count MPV Neut % (Auto) Lymph % (Auto) Grayson % (Auto) Eos % (Auto) Baso % (Auto) Neut # (Auto) Lymph # (Auto) Grayson # (Auto) Eos # (Auto) Baso # (Auto) Nucleated RBC % (auto) Nucleated RBCs # Differential Comment Yes PT INR Sodium Potassium Chloride Carbon Dioxide Anion Gap BUN Creatinine GFR Calculation Glucose Calculated Osmolality Calcium Total Bilirubin AST ALT Alkaline Phosphatase Creatine Kinase Total Protein Albumin Globulin Fluid Color Pale yellow Fluid Appearance Cloudy Fluid WBC 250 Fluid RBC 1.000 Fld Polynuclear WBCs # 0.075 Fld Polynuclear WBCs % 30.000 Fl Mononucl WBCs #(Auto) 0.175 Fl Mononuclear % Auto 70.000 Fld Crystal Laterality Pleural fluid Fluid Albumin 0.6 Fluid LDH 88 Pleural Total Protein 0.8 Vancomycin Trough 19.0 H Rheumatoid Factor Beta-(1,3)-D-Glucan <31 B-(1,3)-D-Glucan Intrp Negative 09/29/23 09/29/23 09/29/23 06:09 10:12 14:48 WBC 20.02 H RBC 3.09 L Hgb 10.40 L Hct 31.8 L MCV 102.9 H MCH 33.7 H MCHC 32.7 RDW 17.0 H Plt Count 52 L MPV 10.5 H Neut % (Auto) 43.6 Lymph % (Auto) 49.5 Grayson % (Auto) 5.1 Eos % (Auto) 1.0 Baso % (Auto) 0.3 Neut # (Auto) 8.72 H Lymph # (Auto) 9.9 H Grayson # (Auto) 1.0 H Eos # (Auto) 0.2 Baso # (Auto) 0.1 Nucleated RBC % (auto) 0 Nucleated RBCs # 0.0 Differential Comment PT 18.50 H INR 1.49 H Sodium 138 Potassium 3.3 L Chloride 104 Carbon Dioxide 27 Anion Gap 10.3 BUN 17 Creatinine 0.6 L GFR Calculation Not Reportable Glucose 109 Calculated Osmolality 288 Calcium 8.4 L Total Bilirubin 1.5 H AST 45 H ALT 24 Alkaline Phosphatase 221 H Creatine Kinase 22 L Total Protein 4.5 L Albumin 2.3 L Globulin 2.2 Fluid Color Fluid Appearance Fluid WBC Fluid RBC Fld Polynuclear WBCs # Fld Polynuclear WBCs % Fl Mononucl WBCs #(Auto) Fl Mononuclear % Auto Fld Crystal Laterality Fluid Albumin Fluid LDH Pleural Total Protein Vancomycin Trough 17.9 H Rheumatoid Factor 11.0 Beta-(1,3)-D-Glucan B-(1,3)-D-Glucan Intrp Micro: Microbiology 09/29/23 09:42 Blood Culture - Preliminary Blood SPECIMEN COLLECTED 09/29/23 09:35 Blood Culture - Preliminary Blood SPECIMEN COLLECTED 09/24/23 09:24 Blood Culture - Final Blood NO GROWTH AFTER 5 DAYS 09/24/23 09:30 Blood Culture - Final Blood NO GROWTH AFTER 5 DAYS A&P Assessment and plan (1) Elevated troponin: Patient has elevated troponin T with no significant delta. Possibility of sepsis causing this is a consideration. And non-ST elevation myocardial infarction cannot be excluded. It is not clear at this point whether this patient had any significant coronary disease or not. We will try to get the medical records from the [facility]. He does not seem to have any evidence of pericarditis. The EKG is unremarkable. Patient has no chest pain or pericardial rub. We have not yet received the medical records. (2) Status post transcatheter aortic valve replacement (TAVR) using bioprosthesis: Valve function appears to be appropriate. May continue on the current management. Repeat GABRIELA to rule out any endocarditis may be appropriate, if everything else is excluded. We may await and the see the clinical response to the other interventions. (3) Chronic atrial fibrillation: Continue on the current medications. Patient is on long-term oral anticoagulation. (4) Sepsis: Patient is being treated for urosepsis. Other etiologies cannot be excluded. C. difficile also is a consideration. He has a large pleural effusion may suggest pulmonary infective process. Pleural fluid studies are pending. Patient had a thoracentesis today. Qualifiers: Sepsis acute organ dysfunction status: without acute organ dysfunction Sepsis type: sepsis due to unspecified organism Qualified Code(s): A41.9 - Sepsis, unspecified organism (5) UTI (urinary tract infection): Patient has a history of recurrent UTI. Qualifiers: Encounter type: sequela Indwelling urinary catheter type: unspecified Urinary tract infection type: catheter-associated UTI Qualified Code(s): T83.511S - Infection and inflammatory reaction due to indwelling urethral catheter, sequela; N39.0 - Urinary tract infection, site not specified (6) Large pleural effusion: The etiology is not clear. The pleural fluid studies are pending Plan Based on the patient's clinical response to the above interventions, further recommendations will be made. We may consider a GABRIELA, if the patient continues to have persistent leukocytosis. Will review the medical records from [facility]. Discussed with Dr. Arpita Britton Medical Necessity Statement*: Deferred to the primary Coding Level of Care Code 68163 Diagnoses Elevated troponin R79.89 Status post transcatheter aortic valve replacement (TAVR) using bioprosthesis Z95.3 Chronic atrial fibrillation I48.20 Sepsis without acute organ dysfunction, due to unspecified organism A41.9 Sepsis acute organ dysfunction status: without acute organ dysfunction Sepsis type: sepsis due to unspecified organism Urinary tract infection associated with catheterization of urinary tract, unspecified indwelling urinary catheter type, sequela T83.511S; N39.0 Encounter type: sequela Indwelling urinary catheter type: unspecified Urinary tract infection type: catheter-associated UTI Large pleural effusion J90
[2023-09-29] MEDS: trazodone 50 mg Tablet PO (21:28)
[2023-09-29] MEDS: pantoprazole 40 mg SDV IVP (21:28)
[2023-09-30] VITALS (14 sets, daily range): BP systolic 101–182; BP diastolic 53–85; PULSE 66–90; RESP 16–18; TEMP 36.4–37; O2SAT 95–98
[2023-09-30] MEDS: vancomycin 125 mg Capsule PO ×4 (03:35→19:43)
[2023-09-30] MEDS: meropenem 1,000 MG in sodium chloride 0.9% (plus) 50 ML 100 MG IV ×3 (06:27→21:02)
[2023-09-30] MEDS: polyethylene glycol 3350 Pkt 17 gm PO (09:16)
[2023-09-30] MEDS: gabapentin 300 mg Capsule PO ×3 (09:16→19:43)
[2023-09-30] MEDS: metoprolol tartrate 25 mg Tablet PO ×2 (09:16→19:43)
[2023-09-30] MEDS: losartan 50 mg Tablet 100 MG PO (09:16)
[2023-09-30] MEDS: phosphorus 250 mg Tablet PO ×2 (09:16→17:19)
[2023-09-30] MEDS: hyDRALAzine 50 mg Tablet PO ×2 (09:16→19:43)
[2023-09-30] MEDS: potassium chloride ER 20 mEq Tablet 40 MEQ PO (09:17)
[2023-09-30] MEDS: vancomycin 1,250 MG/250 ML PIGGYBACK 250 MG IV (09:17)
[2023-09-30 12:44] LABS: CENTROMERE B ANTIBODY <1.0 NEG AI (<1.0 NEG); JO-1 ANTIBODY <1.0 NEG AI (<1.0 NEG); RNP ANTIBODY <1.0 NEG AI (<1.0 NEG); SCL-70 ANTIBODY <1.0 NEG AI (<1.0 NEG); SJOGREN'S ANTIBODY (SS-A) <1.0 NEG AI (<1.0 NEG); SM ANTIBODY <1.0 NEG AI (<1.0 NEG); SS-B <1.0 NEG AI (<1.0 NEG)
[2023-09-30 13:10] LABS: Cyclic Citrullinated Peptide <16 UNITS
[2023-09-30 13:16] LABS: Basophils # 0.1 10^3/uL (0.0-0.1); Basophils % 0.3 %; Eosinophils # 0.1 10^3/uL (0.0-0.8); Eosinophils % 0.6 %; Lymphocytes # 9.5 10^3/uL (0.8-4.8); Lymphocytes % 44.9 %; Mean Corpuscular HGB Conc 32.5 g/dL (30-55); Mean Corpuscular Hemoglobin 33.7 pg (27-33); Mean Corpuscular Volume 103.6 fl (82-101); Mean Platelet Volume 11.7 fL (7.4-10.4); Monocytes % 4.7 %; Neutrophils # 10.33 10^3/uL (1.8-7.7); Neutrophils % 49.1 %; Nucleated Red Blood Cells % 0 %; Platelet Count 59 10^3/cmm (157-399); Red Blood Count 3.09 10^6/uL (3.85-5.65); Red Cell Distribution Width 16.9 % (12.1-15.1); White Blood Count 21.07 10^3/uL (3.29-11.43)
[2023-09-30 13:31] LABS: Alanine Aminotransferase 20 U/L (0-41); Albumin Level 2.3 g/dL (3.5-5.2); Alkaline Phosphatase 226 U/L (40-130); Aspartate Amino Transferase 37 U/L (0-40); Blood Urea Nitrogen 17 mg/dL (8-23); Calcium 8.2 mg/dL (8.5-10.5); Carbon Dioxide 28 mmol/L (22-29); Chloride 104 mmol/L (98-107); Creatinine Clr Calc Pharmacy 74.5022; Globulin 2.4 g/dL (1.3-4.6); Glucose 121 mg/dL (65-115); Magnesium 1.8 mg/dL (1.7-2.3); Osmolality Calculated 291 mOsm/kg (285-295); Sodium 139 mmol/L (136-145); Total Bilirubin 2.1 mg/dL (0.15-1.2); Total Protein 4.7 g/dL (6.6-8.7)
--- NOTE | 2023-09-30 13:34 | XR_ITS ---
WS: [id number] CHEST XRAY TECHNIQUE: Portable chest. CLINICAL INFORMATION: post left thora COMPARISON: 09/29/2023 FINDINGS: Cardiac pacer. Aortic valve replacement. RIGHT PICC line. Heart: Cardiomegaly. Aortic calcification. Lungs: Improved LEFT pleural effusion status post thoracentesis. LEFT basilar atelectasis. No pneumot horax. Bones: Osteopenia. XR/XR chest 1V portable [id number] IMPRESSION: Improved LEFT pleural effusion status post thoracentesis. LEFT basilar atele ctasis. No pneumothorax.
[2023-09-30 13:37] LABS: Anion Gap 10.5 (5-19); Potassium 3.5 mmol/L (3.5-5.1)
[2023-09-30 14:15] LABS: COMPLEMENT COMPONENT C3C 119 mg/dL; COMPLEMENT COMPONENT C4C 19 mg/dL
--- NOTE | 2023-09-30 14:52 | US_ITS ---
WS: [id number] ULTRASOUND-GUIDED THORACENTESIS CLINICAL INFORMATION: pleural effusion COMPARISON: None. PROCEDURE: Informed consent: The risks, benefits, and alternatives of the procedure were discussed with the luis ent. Verbal and written consent was obtained. Timeout: A timeout was performed to confirm the correct patient, procedure, and site. Site: LEFT chest Preparation: A suitable skin site was identified. The patient was prepped and draped in usual sterile fashion. Lidocaine 1% was used for local anesthesia. Catheter: 4 Kyr[place]z One-Step catheter. Fluid Volume: 1000 ml Color: Clear yellow Complications: None. / thoracentesis [id number] IMPRESSION: Uncomplicated ultrasound-guided LEFT thoracentesis.
[2023-09-30] MEDS: fluconazole premix 200 MG/100 ML PREMIX 100 MG IV (15:33)
--- NOTE | 2023-09-30 15:37 | P.PN_ITS ---
Subjective 2 Subjective: Status post thoracentesis yesterday. 100 cc of fluid was removed. Plan for later today. at bedside. Reports that he is feeling like his breathing is better. Afebrile. Vitals/I&O/Wt Last Vital Signs Temp 97.5 F L 09/30/23 11:27 Pulse 75 09/30/23 13:47 Resp 16 09/30/23 11:27 BP 117/67 09/30/23 13:47 Pulse Ox 97 09/30/23 13:47 O2 Del Method Room Air 09/30/23 13:47 09/30/23 09/30/23 09/30/23 06:59 14:59 22:59 Intake Total 350 / 350 Output Total 300 / 2850 Balance -300 / -1860 350 / 350 Weight last 48 hrs Weight 197 lb 4 oz Weight 205 lb 4.8 oz Physical Exam 2 Const: COMMON NORMALS: no acute distress HENMT: COMMON NORMALS: normocephalic HEAD & SCALP: normocephalic Eye: COMMON NORMALS: Equal, round and reactive pupils present and EOMs intact bilaterally PUPIL: Yes Equal, round and reactive pupils present Neck/C-Spine: COMMON NORMALS: no JVD Resp: COMMON NORMALS: normal respiratory effort, No retractions, No use of accessory muscles and clear to auscultation bilaterally AUSCULTATION: clear to auscultation bilaterally Cardio: COMMON NORMALS: no JVD, regular rate, regular rhythm, S1 normal heart sound present and S2 normal heart sound present RATE: regular rate RHYTHM: regular rhythm HEART SOUNDS: S1 normal heart sound present and S2 normal heart sound present GI: COMMON NORMALS: Normal to inspection, nondistended, normoactive bowel sounds present, Soft to palpation and non-tender PALPATION: Yes Soft to palpation Extremity: COMMON NORMALS: no calf tenderness and no pedal edema Neuro: OTHER: Alert oriented x 3. Psych: COMMON NORMALS: mental status grossly normal Urinary Catheter Management: Vickers: Cath Placed During This Visit: yes Reason for Continuing Indwelling Catheter: Acute Urinary Retention or Obstruction Urinary Catheter Date of Insertion: 09/21/23 Urinary Catheter Time of Insertion: 23:04 Sepsis: Is patient septic: Yes Focused sepsis exam performed: Yes F ocused sepsis exam: DP PT pulses greater palpable, cap refill less than 2 seconds, no mottling Date exam was performed: 09/21/23 Time exam was performed: 20:00 Data 09/30/23 13:05 09/30/23 13:05 Micro: Microbiology 09/28/23 Unknown Gram Stain - Final Pleural Fluid Body Fluid Culture - Preliminary 09/29/23 09:42 Blood Culture - Preliminary Blood NEGATIVE TO DATE 09/29/23 09:35 Blood Culture - Preliminary Blood NEGATIVE TO DATE A&P Assessment and plan (1) Acute encephalopathy: (2) UTI (urinary tract infection): Qualifiers: Urinary tract infection type: catheter-associated UTI Indwelling urinary catheter type: unspecified Encounter type: sequela Qualified Code(s): T83.511S - Infection and inflammatory reaction due to indwelling urethral catheter, sequela; N39.0 - Urinary tract infection, site not specified (3) NSTEMI (non-ST elevated myocardial infarction): (4) Sepsis: Qualifiers: Sepsis acute organ dysfunction status: without acute organ dysfunction Sepsis type: sepsis due to unspecified organism Qualified Code(s): A41.9 - Sepsis, unspecified organism (5) Thrombocytopenia: (6) Pleural effusion: Plan Acute encephalopathy Hallucinations ? Likely secondary to UTI, sepsis ? Neurochecks, any stroke scale, aspiration precautions - echo done, previously seen small pericardial effusion. Complicated urinary tract infection, ? Likely associated with Vickers catheter ? While being on Rocephin, ampicillin ? Indicates multidrug-resistant organism, especially as he is at the [facility] facility ? Plan ? Remove Vickers catheter, culture tip, placement of Vickers catheter?this was done ? Urine cultures ? Blood cultures ? Cover for ESBL meropenem ? S vancomycin ? CT scan abdomen pelvis with IV contrast : 1. No hydronephrosis of either kidney. No visible renal or ureteral calculus. 2. Mild perinephric stranding bilaterally, see above discussion. 3. Prostate enlargement and suspected urinary bladder wall thickening, see above. 4. No free air or significant bowel distention. 5. Small amount of fluid in the posterior lower pelvis, not significantly changed. 6. Large bilateral pleural effusions and mild lower lung opacities, see above. 7. Small pericardial effusion. 8. Other findings discussed above. Sepsis, sepsis features met, given encephalopathy, source of infection, elevated troponins, elevated white blood cell count --repeat blood cx, cdiff pending --start PO Vanc --will check serologies for high inflammatory markers Arm swelling --check US--no DVT Suspected cholecystitis -- Ultrasound was done. Sludge within the gallbladder no stones identified or wall thickening Pleural and pericardial effusion -- echocardiogram, IV Lasix, discussed with radiology. Thoracentesis yesterday and today -- hold antiplatelet and anticoagulation NSTEMI ? No complaints of chest pain, no complaints of shortness of breath, chronically on Eliquis therapy ? Serial EKGs, serial troponins, telemetry monitoring ? Continue aspirin ? Continue eliquis - consult cardiology . History of TAVR History of appendicitis status post appendectomy History of atrial fibrillation on Eliquis therapy History of pacemaker placement Right PICC line in place Recent hospitalization for Enterococcus bacteremia, on Rocephin and ampicillin DNR DNI Disposition: Will likely monitor over weekend: Likely discharge on IV antibiotics. Attestations 2 Medical Necessity Statement*: Eddy Miner requires ongoing inpatient care for antibiotics, possible GABRIELA. Awaiting thoracentesis Coding Level of Care Code 55336 Diagnoses Acute encephalopathy G93.40 Urinary tract infection associated with catheterization of urinary tract, unspecified indwelling urinary catheter type, sequela T83.511S; N39.0 Urinary tract infection type: catheter-associated UTI Indwelling urinary catheter type: unspecified Encounter type: sequela NSTEMI (non-ST elevated myocardial infarction) I21.4 Sepsis without acute organ dysfunction, due to unspecified organism A41.9 Sepsis acute organ dysfunction status: without acute organ dysfunction Sepsis type: sepsis due to unspecified organism Thrombocytopenia D69.6 Pleural effusion J90
[2023-09-30] MEDS: FUROsemide 10 mg/mL SDV 2mL 20 MG IVP (16:02)
[2023-09-30] MEDS: dutasteride 0.5 mg Capsule PO (17:19)
[2023-09-30] MEDS: trazodone 50 mg Tablet PO (19:43)
[2023-09-30] MEDS: pantoprazole 40 mg SDV IVP (19:43)
[2023-10-01] VITALS (9 sets, daily range): BP systolic 106–146; BP diastolic 55–84; PULSE 63–82; RESP 17–21; TEMP 36.3–37.1; O2SAT 92–96
[2023-10-01] MEDS: vancomycin 1,250 MG/250 ML PIGGYBACK 250 MG IV ×2 (02:54→23:30)
[2023-10-01] MEDS: vancomycin 125 mg Capsule PO ×3 (02:54→14:37)
[2023-10-01] MEDS: meropenem 1,000 MG in sodium chloride 0.9% (plus) 50 ML 100 MG IV ×3 (05:28→22:29)
[2023-10-01 05:54] LABS: Basophils # 0.1 10^3/uL (0.0-0.1); Basophils % 0.4 %; Eosinophils # 0.1 10^3/uL (0.0-0.8); Eosinophils % 0.5 %; Hematocrit 32.1 % (37-53); Lymphocytes # 8.8 10^3/uL (0.8-4.8); Lymphocytes % 44.1 %; Mean Corpuscular HGB Conc 31.2 g/dL (30-55); Mean Corpuscular Hemoglobin 33.3 pg (27-33); Mean Platelet Volume 10.9 fL (7.4-10.4); Monocytes # 1.2 10^3/uL (0.2-0.9); Monocytes % 5.8 %; Neutrophils # 9.75 10^3/uL (1.8-7.7); Neutrophils % 48.7 %; Nucleated Red Blood Cells % 0 %; Platelet Count 69 10^3/cmm (157-399); White Blood Count 20.05 10^3/uL (3.29-11.43)
[2023-10-01 06:17] LABS: Alanine Aminotransferase 18 U/L (0-41); Albumin Level 2.2 g/dL (3.5-5.2); Alkaline Phosphatase 224 U/L (40-130); Anion Gap 10.4 (5-19); Aspartate Amino Transferase 31 U/L (0-40); Blood Urea Nitrogen 17 mg/dL (8-23); Calcium 8.5 mg/dL (8.5-10.5); Carbon Dioxide 27 mmol/L (22-29); Chloride 105 mmol/L (98-107); Creatinine Clr Calc Pharmacy 74.2269; Globulin 2.1 g/dL (1.3-4.6); Glucose 99 mg/dL (65-115); Osmolality Calculated 290 mOsm/kg (285-295); Potassium 3.4 mmol/L (3.5-5.1); Sodium 139 mmol/L (136-145); Total Protein 4.3 g/dL (6.6-8.7)
[2023-10-01] MEDS: ipratropium-albuterol 3 mL Neb INHALATION (08:48)
[2023-10-01] MEDS: phosphorus 250 mg Tablet PO ×2 (09:01→18:05)
[2023-10-01] MEDS: hyDRALAzine 50 mg Tablet PO ×3 (09:01→22:25)
[2023-10-01] MEDS: losartan 50 mg Tablet 100 MG PO (09:01)
[2023-10-01] MEDS: gabapentin 300 mg Capsule PO ×2 (09:01→14:37)
[2023-10-01] MEDS: potassium chloride ER 20 mEq Tablet 40 MEQ PO (09:01)
[2023-10-01] MEDS: polyethylene glycol 3350 Pkt 17 gm PO (09:02)
[2023-10-01] MEDS: metoprolol tartrate 25 mg Tablet PO ×2 (09:03→22:25)
--- NOTE | 2023-10-01 14:06 | P.PN_ITS ---
Subjective 2 Subjective: Patient continues to feel weak and seems very lethargic. Still remaining afebrile. The white cell count is persistently elevated. Medications: Medication Review Details: Current Medications Acetaminophen (Acetaminophen 325 Mg Tablet) 650 mg PO Q6H PRN PRN Reason: Mild/Mod Pain Or Temp >/= 101 Albuterol/Ipratropium (Ipratropium-Albuterol 3 Ml Neb) 3 ml INHALATION Q6H.RESP PRN PRN Reason: SHORTNESS OF BREATH Last Admin: 10/01/23 08:48 Dose: 3 ml Apixaban (Apixaban 5 Mg Tablet) 5 mg PO BID@0900,2100 [facility] Last Admin: 09/27/23 08:43 Dose: 5 mg Aspirin (Aspirin 81 Mg Ec Tablet) 81 mg PO QAM [facility] Last Admin: 09/27/23 05:15 Dose: 81 mg Furosemide (Furosemide 10 Mg/Ml Sdv 4ml) 40 mg IVP Q8H [facility] Stop: 10/02/23 02:01 Last Admin: 10/01/23 18:05 Dose: 40 mg Gabapentin (Gabapentin 300 Mg Capsule) 300 mg PO TID [facility] Last Admin: 10/01/23 14:37 Dose: 300 mg Hydralazine HCl (Hydralazine 50 Mg Tablet) 50 mg PO TID [facility] Last Admin: 10/01/23 14:37 Dose: 50 mg Meropenem 1,000 mg/ Sodium (Chloride) 50 mls @ 100 mls/hr IV Q8H [facility]; Protocol Last Infusion: 10/01/23 15:13 Dose: Infused Fluconazole (Diflucan Premix) 200 mg in 100 mls @ 100 mls/hr IV Q24H [facility] Last Infusion: 10/01/23 16:17 Dose: Infused Vancomycin/PEG/NADA/Lysine/Water (Vancocin) 1,250 mg in 250 mls @ 250 mls/hr IV Q18H [facility] Last Infusion: 10/01/23 04:15 Dose: Infused Albumin Human (Albumin) 25 g in 100 mls @ 60 mls/hr IV Q8H [facility] Stop: 10/02/23 03:39 Last Admin: 10/01/23 18:04 Dose: 60 mls/hr Losartan Potassium (Losartan 50 Mg Tablet) 100 mg PO DAILY [facility] Last Admin: 10/01/23 09:01 Dose: 100 mg Metoprolol Tartrate (Metoprolol Tartrate 25 Mg Tablet) 25 mg PO BID@0900,2100 [facility] Last Admin: 10/01/23 09:03 Dose: 25 mg Ondansetron HCl (Ondansetron 2 Mg/Ml Sdv 2 Ml) 4 mg IVP Q6H PRN PRN Reason: NAUSEA AND VOMITING Pantoprazole Sodium (Pantoprazole 40 Mg Sdv) 40 mg IVP Q24H [facility] Last Admin: 09/30/23 19:43 Dose: 40 mg Polyethylene Glycol (Polyethylene Glycol 3350 Pkt 17 Gm) 17 gm PO DAILY [facility] Last Admin: 10/01/23 09:02 Dose: 17 gm Potassium Chloride (Potassium Chloride Er 20 Meq Tablet) 40 meq PO DAILY [facility] Last Admin: 10/01/23 09:01 Dose: 40 meq Potassium Phosphate (Phosphorus 250 Mg Tablet) 250 mg PO BID [facility] Last Admin: 10/01/23 18:05 Dose: 250 mg Trazodone HCl (Trazodone 50 Mg Tablet) 50 mg PO BEDTIME [facility] Last Admin: 09/30/23 19:43 Dose: 50 mg Vitals/I&O/Wt Last Vital Signs Temp 98.7 F 10/01/23 12:00 Pulse 70 10/01/23 12:00 Resp 17 10/01/23 12:00 BP 106/60 10/01/23 12:00 Pulse Ox 95 10/01/23 12:00 O2 Del Method Room Air 10/01/23 12:00 09/30/23 10/01/23 10/01/23 22:59 06:59 14:59 Intake Total 150 / 500 420 / 920 Output Total 525 / 525 Balance 150 / 500 -105 / 395 Weight last 48 hrs Weight 195 lb 9.6 oz Weight 197 lb 4 oz Physical Exam 2 Narrative: GENERAL: The patient is alert and oriented to person. Not in any acute distress. Lethargic HEENT: Moderate pallor. No icterus or lymphadenopathy.Oral cavity: There are no mucous membrane lesions. NECK: Trachea appears to be central. No masses noted. No JVD or thyromegaly appreciated. RESPIRATORY: Chest is symmetrical. No intercostals muscle retraction or any accessory muscle activation. There is no chest wall tenderness. Breath sounds are heard bilaterally. No rales or rhonchi heard. No evidence of any consolidation. BREASTS: Deferred. HEART: The heart sounds are normal. No S3 or S4. Short ejection systolic murmur at the aortic area. No diastolic murmurs. No pericardial rub ABDOMEN: No vessel pulsations or distention. No tenderness. No organomegaly appreciated. Bowel sounds are normally heard. : Deferred. RECTAL: Deferred. LYMPHATIC: No lymphadenopathy noted in the neck. EXTREMITIES: No edema or cyanosis. No clubbing. MUSCULOSKELETAL: No acute joint deformities or swelling SKIN: There are no significant rashes or ecchymosis NEUROPSYCHIATRIC: The patient is alert oriented to person. No focal motor deficits noted. Urinary Catheter Management: Vickers: Cath Placed During This Visit: yes Reason for Continuing Indwelling Catheter: Acute Urinary Retention or Obstruction Urinary Catheter Date of Insertion: 09/21/23 Urinary Catheter Time of Insertion: 23:04 Data 10/02/23 05:57 10/02/23 05:57 Other Labs: Laboratory Last Values WBC 20.05 10^3/uL (3.29-11.43) H 10/01/23 05:44 RBC 3.00 10^6/uL (3.85-5.65) L 10/01/23 05:44 Hgb 10.00 g/dL (11.27-16.99) L 10/01/23 05:44 Hct 32.1 % (37-53) L 10/01/23 05:44 MCV 107.0 fl (82-101) H 10/01/23 05:44 MCH 33.3 pg (27-33) H 10/01/23 05:44 MCHC 31.2 g/dL (30-55) 10/01/23 05:44 RDW 17.0 % (12.1-15.1) H 10/01/23 05:44 Plt Count 69 10^3/cmm (157-399) L 10/01/23 05:44 MPV 10.9 fL (7.4-10.4) H 10/01/23 05:44 Neut % (Auto) 48.7 % 10/01/23 05:44 Lymph % (Auto) 44.1 % 10/01/23 05:44 Branch % (Auto) 5.8 % 10/01/23 05:44 Eos % (Auto) 0.5 % 10/01/23 05:44 Baso % (Auto) 0.4 % 10/01/23 05:44 Neut # (Auto) 9.75 10^3/uL (1.8-7.7) H 10/01/23 05:44 Lymph # (Auto) 8.8 10^3/uL (0.8-4.8) H 10/01/23 05:44 Branch # (Auto) 1.2 10^3/uL (0.2-0.9) H 10/01/23 05:44 Eos # (Auto) 0.1 10^3/uL (0.0-0.8) 10/01/23 05:44 Baso # (Auto) 0.1 10^3/uL (0.0-0.1) 10/01/23 05:44 Nucleated RBC % (auto) 0 % 10/01/23 05:44 Nucleated RBCs # 0.0 /100WBC 10/01/23 05:44 Differential Comment Yes 09/28/23 Unknown PT 18.50 SECONDS (12.1-14.9) H 09/29/23 10:12 INR 1.49 (0.8-1.2) H 09/29/23 10:12 APTT 135.4 SECONDS (23.9-36.7) H D 09/23/23 13:50 Sodium 139 mmol/L (136-145) 10/01/23 05:44 Potassium 3.4 mmol/L (3.5-5.1) L 10/01/23 05:44 Chloride 105 mmol/L (98-107) 10/01/23 05:44 Carbon Dioxide 27 mmol/L (22-29) 10/01/23 05:44 Anion Gap 10.4 (5-19) 10/01/23 05:44 BUN 17 mg/dL (8-23) 10/01/23 05:44 Creatinine 0.7 mg/dL (0.7-1.2) 10/01/23 05:44 GFR Calculation Not Reportable 10/01/23 05:44 Glucose 99 mg/dL (65-115) 10/01/23 05:44 POC Glucose 105 mg/dL (70-110) 09/25/23 10:39 Calculated Osmolality 290 mOsm/kg (285-295) 10/01/23 05:44 Lactic Acid 1.6 mmol/L (0.5-2.2) 09/21/23 16:50 Calcium 8.5 mg/dL (8.5-10.5) 10/01/23 05:44 Phosphorus 2.1 mg/dL (2.5-4.5) L 09/27/23 11:55 Magnesium 1.8 mg/dL (1.7-2.3) 09/30/23 13:05 Total Bilirubin 2.0 mg/dL (0.15-1.2) H 10/01/23 05:44 AST 31 U/L (0-40) 10/01/23 05:44 ALT 18 U/L (0-41) 10/01/23 05:44 Alkaline Phosphatase 224 U/L (40-130) H 10/01/23 05:44 Creatine Kinase 22 U/L (39-308) L 09/29/23 14:48 Troponin T 5th Gen ng/L 165 ng/L (0-15) H* 09/27/23 11:55 Troponin T Baseline 112 ng/L (0-15) H* 09/21/23 16:50 Troponin T 120 Minute 120.0 ng/L (0-15) H 09/21/23 19:02 Delta Troponin T 8.0 ABS# (0-10) 09/21/23 19:02 Troponin T Hi Sens 6Hr 113.4 ng/L (0-15) H 09/21/23 23:13 Troponin T Hi Sens 6Hr Delta 1.4 ng/L (0-12) 09/21/23 23:13 C-Reactive Protein 117.9 mg/L (0.0-4.9) H 09/28/23 09:08 Total Protein 4.3 g/dL (6.6-8.7) L 10/01/23 05:44 Albumin 2.2 g/dL (3.5-5.2) L 10/01/23 05:44 Globulin 2.1 g/dL (1.3-4.6) 10/01/23 05:44 Folate 17.7 ng/mL (4.5-32.2) 09/25/23 20:43 Procalcitonin 0.07 ng/mL (0-0.5) 09/21/23 19:02 TSH 2.98 uIU/mL (0.27-4.20) 09/21/23 19:02 Urine Color Dark yellow (Yellow) 09/21/23 18:20 Urine Appearance Cloudy (CLEAR) A 09/21/23 18:20 Urine pH 6 (5-7) 09/21/23 18:20 Ur Specific [place] 1.015 (1.005-1.030) 09/21/23 18:20 Urine Protein 1+ (Negative) H 09/21/23 18:20 Urine Glucose (UA) Norm (Normal) 09/21/23 18:20 Urine Ketones Negative (Negative) 09/21/23 18:20 Urine Blood 3+ (Negative) H 09/21/23 18:20 Urine Nitrate Negative (Negative) 09/21/23 18:20 Urine Bilirubin Neg (Negative) 09/21/23 18:20 Urine Urobilinogen Norm mg/dL (Negative) 09/21/23 18:20 Ur Leukocyte Esterase 2+ (Negative) H 09/21/23 18:20 Urine RBC >100 /hpf (0-2) H 09/21/23 18:20 Urine WBC >100 /hpf (0-5) H 09/21/23 18:20 Ur Squamous Epith Cells Rare /hpf (0-5) 09/21/23 18:20 Amorphous Sediment Not Reportable 09/21/23 18:20 Urine Bacteria Trace /hpf (NONE) 09/21/23 18:20 Urine Mucus Trace /hpf 09/21/23 18:20 Urine Yeast 4+ /hpf H 09/21/23 18:20 Fluid Color Pale yellow 09/28/23 Unknown Fluid Appearance Cloudy 09/28/23 Unknown Fluid WBC 250 /uL 09/28/23 Unknown Fluid RBC 1.000 10^3/uL 09/28/23 Unknown Fld Polynuclear WBCs # 0.075 09/28/23 Unknown Fld Polynuclear WBCs % 30.000 % 09/28/23 Unknown Fl Mononucl WBCs #(Auto) 0.175 09/28/23 Unknown Fl Mononuclear % Auto 70.000 % 09/28/23 Unknown Fld Crystal Laterality Pleural fluid 09/28/23 Unknown Fluid Albumin 0.6 g/dL 09/28/23 Unknown Fluid LDH 88 U/L 09/28/23 Unknown Pleural Total Protein 0.8 g/dL 09/28/23 Unknown Vancomycin Trough 17.9 ug/mL (10-15) H 09/29/23 14:48 Rheumatoid Factor 11.0 IU/mL (0-14) 09/29/23 14:48 Cycl Citrul Peptide IgG <16 UNITS 09/29/23 14:48 AYDEE IFA Animal Tis Res Negative (NEGATIVE) 09/29/23 14:48 KRISTINE-1 Antibody <1.0 neg AI (<1.0 NEG) 09/29/23 14:48 SS-A Antibody <1.0 neg AI (<1.0 NEG) 09/29/23 14:48 SS-B Antibody <1.0 neg AI (<1.0 NEG) 09/29/23 14:48 Sm (Uriostegui) Antibody <1.0 neg AI (<1.0 NEG) 09/29/23 14:48 SURVEY RODMAN Antibody <1.0 neg AI (<1.0 NEG) 09/29/23 14:48 Scl-70 Antibody <1.0 neg AI (<1.0 NEG) 09/29/23 14:48 Centromere B Antibody <1.0 neg AI (<1.0 NEG) 09/29/23 14:48 Complement C3c 119 mg/dL 09/29/23 14:48 Complement C4c 19 mg/dL 09/29/23 14:48 CH50 Classical Pathway 58 U/mL (31-60) 09/29/23 14:48 Beta-(1,3)-D-Glucan <31 pg/mL 09/24/23 09:30 B-(1,3)-D-Glucan Intrp Negative 09/24/23 09:30 Micro: Microbiology 09/28/23 Unknown Gram Stain - Final Pleural Fluid Body Fluid Culture - Preliminary 09/29/23 09:42 Blood Culture - Preliminary Blood NEGATIVE TO DATE 09/29/23 09:35 Blood Culture - Preliminary Blood NEGATIVE TO DATE A&P Assessment and plan (1) Elevated troponin: Patient has elevated troponin T with no significant delta. Possibility of sepsis causing this is a consideration. And non-ST elevation myocardial infarction cannot be excluded. It is not clear at this point whether this patient had any significant coronary disease or not. He does not seem to have any evidence of pericarditis. The EKG is unremarkable. Patient has no chest pain or pericardial rub. (2) Status post transcatheter aortic valve replacement (TAVR) using bioprosthesis: Valve function appears to be appropriate. May continue on the current management. Repeat GABRIELA to rule out any endocarditis may be appropriate, if everything else is excluded. We may await and the see the clinical response to the other interventions. I discussed with the patient and his about this procedure. The patient is not very keen to have it done. I explained in detail the benefits and risks of the procedure. The family needs little more time to make a decision. (3) Chronic atrial fibrillation: Continue on the current medications. Patient is on long-term oral anticoagulation. (4) Sepsis: Patient is being treated for urosepsis. Other etiologies cannot be excluded. C. difficile also is a consideration. The pleural fluid appears to be an exudate. Etiology is unclear. Qualifiers: Sepsis acute organ dysfunction status: without acute organ dysfunction Sepsis type: sepsis due to unspecified organism Qualified Code(s): A41.9 - Sepsis, unspecified organism (5) UTI (urinary tract infection): Patient has a history of recurrent UTI. Qualifiers: Encounter type: sequela Indwelling urinary catheter type: unspecified Urinary tract infection type: catheter-associated UTI Qualified Code(s): T 83.511S - Infection and inflammatory reaction due to indwelling urethral catheter, sequela; N39.0 - Urinary tract infection, site not specified (6) Large pleural effusion: Status post thoracentesis. Respiratory status seems to be stable Plan May continue on the current management. Once the family and the patient decides on the GABRIELA, we may make arrangements to have it done Attestations 2 Medical Necessity Statement*: Deferred to the primary Coding Level of Care Code 01804 Diagnoses Elevated troponin R79.89 Status post transcatheter aortic valve replacement (TAVR) using bioprosthesis Z95.3 Chronic atrial fibrillation I48.20 Sepsis without acute organ dysfunction, due to unspecified organism A41.9 Sepsis acute organ dysfunction status: without acute organ dysfunction Sepsis type: sepsis due to unspecified organism Urinary tract infection associated with catheterization of urinary tract, unspecified indwelling urinary catheter type, sequela T83.511S; N39.0 Encounter type: sequela Indwelling urinary catheter type: unspecified Urinary tract infection type: catheter-associated UTI Large pleural effusion J90
[2023-10-01 14:26] LABS: COMPLEMENT, TOTAL (CH50) 58 U/mL (31-60)
[2023-10-01] MEDS: FUROsemide 10 mg/mL SDV 2mL 20 MG IVP (14:40)
[2023-10-01] MEDS: fluconazole premix 200 MG/100 ML PREMIX 100 MG IV (14:42)
--- NOTE | 2023-10-01 14:55 | PC.SOCIAL ---
IMM Update pg 2 of IMM updated and reviewed w/ patients . Copy provided and copy dated, initialed and placed in chart.
[2023-10-01 16:10] LABS: ANA SCREEN, IFA NEGATIVE (NEGATIVE)
--- NOTE | 2023-10-01 16:10 | PM.PN ---
Subjective Subjective: This is an 87-year-old gentleman with a very complicated medical course. Back in June he had a significant appendicitis. He had this removed. They found at the time he had severe aortic stenosis and subsequently had surgery on this as well. Since then he is just continued to decline and has not really recovered. He was admitted to the hospital this time around for acute encephalopathy. Thought to be from a UTI and sepsis. Urine culture has only grown out Nohemy albicans. Last blood culture was done on 09/29/2023. This 1 was negative. He has been on fluconazole for several days now. CT scan of his chest abdomen and pelvis showed a significant pleural effusion. This has been tapped 2 separate times with large volumes extracted. There also appears to be some anasarca on CT scan. He has had a transesophageal echocardiogram done last months which did not reveal any vegetations. Limited echocardiogram done on September 26 showed concentric LVH with a 50% ejection fraction. Aortic valve still seem to be intact. With a mild to moderate regurgitation. Overall he and his family feel like he is continuing to decline. Confusion may have improved some but definitely still has issues with that mostly in the mornings. They are starting to think about possible comfort care and hospice as well. I am set to have another discussion with him this afternoon. Medications: Reviewed: Yes Medication Review Details: Current Medications Acetaminophen (Acetaminophen 325 Mg Tablet) 650 mg PO Q6H PRN PRN Reason: Mild/Mod Pain Or Temp >/= 101 Albuterol/Ipratropium (Ipratropium-Albuterol 3 Ml Neb) 3 ml INHALATION Q6H.RESP PRN PRN Reason: SHORTNESS OF BREATH Last Admin: 10/01/23 08:48 Dose: 3 ml Apixaban (Apixaban 5 Mg Tablet) 5 mg PO BID@0900,2100 [facility] Last Admin: 09/27/23 08:43 Dose: 5 mg Aspirin (Aspirin 81 Mg Ec Tablet) 81 mg PO QAM [facility] Last Admin: 09/27/23 05:15 Dose: 81 mg Dutasteride (Dutasteride 0.5 Mg Capsule) 0.5 mg PO QPM [facility] Last Admin: 09/30/23 17:19 Dose: 0.5 mg Furosemide (Furosemide 10 Mg/Ml Sdv 2ml) 20 mg IVP Q24H [facility] Last Admin: 10/01/23 14:40 Dose: 20 mg Gabapentin (Gabapentin 300 Mg Capsule) 300 mg PO TID [facility] Last Admin: 10/01/23 14:37 Dose: 300 mg Hydralazine HCl (Hydralazine 50 Mg Tablet) 50 mg PO TID [facility] Last Admin: 10/01/23 14:37 Dose: 50 mg Meropenem 1,000 mg/ Sodium (Chloride) 50 mls @ 100 mls/hr IV Q8H [facility]; Protocol Last Infusion: 10/01/23 15:13 Dose: Infused Fluconazole (Diflucan Premix) 200 mg in 100 mls @ 100 mls/hr IV Q24H [facility] Last Admin: 10/01/23 14:42 Dose: 100 mls/hr Vancomycin/PEG/NADA/Lysine/Water (Vancocin) 1,250 mg in 250 mls @ 250 mls/hr IV Q18H [facility] Last Infusion: 10/01/23 04:15 Dose: Infused Losartan Potassium (Losartan 50 Mg Tablet) 100 mg PO DAILY [facility] Last Admin: 10/01/23 09:01 Dose: 100 mg Metoprolol Tartrate (Metoprolol Tartrate 25 Mg Tablet) 25 mg PO BID@0900,2100 [facility] Last Admin: 10/01/23 09:03 Dose: 25 mg Ondansetron HCl (Ondansetron 2 Mg/Ml Sdv 2 Ml) 4 mg IVP Q6H PRN PRN Reason: NAUSEA AND VOMITING Pantoprazole Sodium (Pantoprazole 40 Mg Sdv) 40 mg IVP Q24H [facility] Last Admin: 09/30/23 19:43 Dose: 40 mg Polyethylene Glycol (Polyethylene Glycol 3350 Pkt 17 Gm) 17 gm PO DAILY [facility] Last Admin: 10/01/23 09:02 Dose: 17 gm Potassium Chloride (Potassium Chloride Er 20 Meq Tablet) 40 meq PO DAILY [facility] Last Admin: 10/01/23 09:01 Dose: 40 meq Potassium Phosphate (Phosphorus 250 Mg Tablet) 250 mg PO BID [facility] Last Admin: 10/01/23 09:01 Dose: 250 mg Trazodone HCl (Trazodone 50 Mg Tablet) 50 mg PO BEDTIME [facility] Last Admin: 09/30/23 19:43 Dose: 50 mg Vancomycin HCl (Vancomycin 125 Mg Capsule) 125 mg PO Q6H [facility] Last Admin: 10/01/23 14:37 Dose: 125 mg Vitals/I&O/Wt Last Vital Signs Temp 98.7 F 10/01/23 12:00 Pulse 70 10/01/23 12:00 Resp 17 10/01/23 12:00 BP 106/60 10/01/23 12:00 Pulse Ox 95 10/01/23 12:00 O2 Del Method Room Air 10/01/23 12:00 10/01/23 10/01/23 10/01/23 06:59 14:59 22:59 Intake Total 420 / 920 50 / 50 Output Total 525 / 525 Balance -105 / 395 50 / 50 Weight last 48 hrs Weight 195 lb 9.6 oz Weight 197 lb 4 oz Physical Exam Narrative: General: No acute distress, Alert. Well nourished. Heart: Regular rate and rhythm. No murmurs, rubs or gallops. Normal capillary refill. Lungs: Clear to auscultation. No wheezes, rhonchi or rales. Abdomen: Positive bowel sounds. Non-tender, non-distended. No hepatosplenomegaly. No gaurding. Extremities: No clubbing, cyanosis. He has pretty diffuse edema with 2+ in his legs. Edema. Negative Nam's Urinary Catheter Management: Vickers: Cath Placed During This Visit: yes Reason for Continuing Indwelling Catheter: Acute Urinary Retention or Obstruction Urinary Catheter Date of Insertion: 09/21/23 Urinary Catheter Time of Insertion: 23:04 Data 10/01/23 05:44 10/01/23 05:44 Micro: Microbiology 09/28/23 Unknown Gram Stain - Final Pleural Fluid Body Fluid Culture - Preliminary A&P Assessment and plan (1) Status post transcatheter aortic valve replacement (TAVR) using bioprosthesis: Valve on recent echocardiogram looks to be okay. Does have a mild to moderate regurgitation. But no vegetation seen. I do think with the persistent elevated white blood cell count doing another transesophageal echocardiogram is probably prudent. He is currently on vancomycin but I am not sure if that is really indicated at this time. C. difficile testing is all been negative on several tests. Not a bad idea to continue the IV version until an endocarditis can be more accurately ruled out. (2) Chronic atrial fibrillation: Stable (3) Thrombocytopenia: Platelet counts have been running low for a while. Little bit better today. (4) Elevated bilirubin: Not sure what is causing the liver dysfunction. He does have some elevated bilirubin. Also has evidence of anasarca. He is got low protein and low albumin which may be contributing to his pleural effusion and overall anasarca picture. Ultrasound the gallbladder does show some sludge and ultimately this may be a gallbladder issue driving a lot of his condition. On exam he really does not have any significant tenderness in this area. (5) Anasarca: At this point again unclear what is driving this. I would like to try couple doses of albumin followed by Lasix and see if we can get some of this fluid off and get his condition improved. (6) UTI (urinary tract infection): The only thing we have been able to grow out has been Nohemy. He has been on fluconazole long enough to treat this. Probably repeat a urine culture at this point. Qualifiers: Urinary tract infection type: catheter-associated UTI Indwelling urinary catheter type: unspecified Encounter type: sequela Qualified Code(s): T83.511S - Infection and inflammatory reaction due to indwelling urethral catheter, sequela; N39.0 - Urinary tract infection, site not specified (7) Acute encephalopathy: Unclear how much of this right now is due to infection and how much is just worsening dementia and the effects of his ongoing chronic illnesses. Has improved some though. (8) Large pleural effusion: Not sure if this is related to the anasarca or some congestive heart failure related to his heart valve replacement. Will attempt to diurese him some and see how he does. Attestations Medical Necessity Statement*: Patient has acute medical problems including congestive heart failure, anasarca that require continued inpatient IV treatments and monitoring. Coding Level of Care Code Acute Code for Chg Fwd Diagnoses Status post transcatheter aortic valve replacement (TAVR) using bioprosthesis Z95.3 Chronic atrial fibrillation I48.20 Thrombocytopenia D69.6 Elevated bilirubin R17 Anasarca R60.1 Urinary tract infection associated with catheterization of urinary tract, unspecified indwelling urinary catheter type, sequela T83.511S; N39.0 Urinary tract infection type: catheter-associated UTI Indwelling urinary catheter type: unspecified Encounter type: sequela Acute encephalopathy G93.40 Large pleural effusion J90
[2023-10-01] MEDS: albumin 25 G/100 ML BAG 60 G IV (18:04)
[2023-10-01] MEDS: FUROsemide 10 mg/mL SDV 4mL 40 MG IVP (18:05)
[2023-10-01] MEDS: pantoprazole 40 mg SDV IVP (20:21)
[2023-10-02] VITALS (9 sets, daily range): BP systolic 120–155; BP diastolic 62–77; PULSE 59–91; RESP 16–20; TEMP 36.4–37; O2SAT 91–96
[2023-10-02] MEDS: FUROsemide 10 mg/mL SDV 4mL 40 MG IVP (02:00)
[2023-10-02] MEDS: albumin 25 G/100 ML BAG 60 G IV (02:02)
[2023-10-02] MEDS: meropenem 1,000 MG in sodium chloride 0.9% (plus) 50 ML 100 MG IV ×2 (06:06→17:34)
[2023-10-02 06:18] LABS: Basophils # 0.1 10^3/uL (0.0-0.1); Basophils % 0.3 %; Eosinophils # 0.2 10^3/uL (0.0-0.8); Hematocrit 28.5 % (37-53); Lymphocytes # 7.4 10^3/uL (0.8-4.8); Lymphocytes % 42.8 %; Mean Corpuscular HGB Conc 32.6 g/dL (30-55); Mean Corpuscular Hemoglobin 34.4 pg (27-33); Mean Corpuscular Volume 105.6 fl (82-101); Mean Platelet Volume 11.5 fL (7.4-10.4); Monocytes # 0.9 10^3/uL (0.2-0.9); Monocytes % 5.3 %; Neutrophils # 8.66 10^3/uL (1.8-7.7); Neutrophils % 50.1 %; Nucleated Red Blood Cells % 0 %; Platelet Count 60 10^3/cmm (157-399); Red Cell Distribution Width 16.7 % (12.1-15.1); White Blood Count 17.27 10^3/uL (3.29-11.43)
[2023-10-02 06:41] LABS: Alanine Aminotransferase 26 U/L (0-41); Albumin Level 2.8 g/dL (3.5-5.2); Alkaline Phosphatase 216 U/L (40-130); Anion Gap 10.6 (5-19); Aspartate Amino Transferase 43 U/L (0-40); Blood Urea Nitrogen 17 mg/dL (8-23); C Reactive Protein 111.3 mg/L (0.0-4.9); Calcium 8.9 mg/dL (8.5-10.5); Carbon Dioxide 33 mmol/L (22-29); Chloride 99 mmol/L (98-107); Creatinine Clr Calc Pharmacy 72.4738; Globulin 2.2 g/dL (1.3-4.6); Glucose 100 mg/dL (65-115); Osmolality Calculated 292 mOsm/kg (285-295); Sodium 140 mmol/L (136-145); Total Bilirubin 2.3 mg/dL (0.15-1.2)
[2023-10-02 06:55] LABS: Potassium 2.6 mmol/L (3.5-5.1)
[2023-10-02 07:12] LABS: Hepatitis A Antibody IgM Non-Reactive (Nonreactive); Hepatitis B Core AB, Total Non-Reactive (Nonreactive); Hepatitis B Surface AB < 3.5 (11.5-1000); Hepatitis B Surface Antigen Non-Reactive (Nonreactive); Hepatitis C Virus Antibody Non-Reactive (Nonreactive)
[2023-10-02] MEDS: potassium chloride ER 20 mEq Tablet 40 MEQ PO ×3 (09:22→17:33)
[2023-10-02] MEDS: phosphorus 250 mg Tablet PO ×2 (09:22→17:34)
[2023-10-02] MEDS: metoprolol tartrate 25 mg Tablet PO ×2 (09:22→21:16)
[2023-10-02] MEDS: losartan 50 mg Tablet 100 MG PO (09:22)
[2023-10-02] MEDS: hyDRALAzine 50 mg Tablet PO ×3 (09:22→21:16)
[2023-10-02] MEDS: polyethylene glycol 3350 Pkt 17 gm PO (09:23)
[2023-10-02 10:50] LABS: Magnesium 1.7 mg/dL (1.7-2.3)
--- NOTE | 2023-10-02 12:32 | PC.NURSE ---
Dr. Waldron asked if patient can return to [facility] this weekend. 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
[2023-10-02] MEDS: vancomycin 1,250 MG/250 ML PIGGYBACK 250 MG IV (15:16)
[2023-10-02] MEDS: fluconazole premix 200 MG/100 ML PREMIX 100 MG IV (16:28)
--- NOTE | 2023-10-02 17:16 | P.PN_ITS ---
Subjective 2 Subjective: The patient has had loss going overall today. He feels okay, but has been speaking with his and he has decided that he would like to hospice care instead of proceeding with multiple interventions. He feels like he will get his hopes up with a procedure or intervention that may help, and then something else pops up once that is taken care of. He is ready to be done with all of the interventions. His states that she is not able to care for him at home and would not be able to provide the level of care that he needs. She would not be able to do in-home hospice at this point. They would like to consider hospice in a nursing facility. Vitals/I&O/Wt Last Vital Signs Temp 98.1 F 10/02/23 12:00 Pulse 64 10/02/23 12:00 Resp 18 10/02/23 12:00 BP 120/64 10/02/23 12:00 Pulse Ox 94 10/02/23 12:00 O2 Del Method Room Air 10/02/23 07:52 10/02/23 10/02/23 10/02/23 06:59 14:59 22:59 Intake Total 400 / 650 220 / 220 250 / 470 Output Total 3525 / 4825 650 / 650 Balance -3125 / -4175 -430 / -430 250 / -180 Weight last 48 hrs Weight 185 lb 1.6 oz Weight 195 lb 9.6 oz Physical Exam 2 Narrative: General: Alert and oriented x 3. In no acute distress. Generalized weakness noted. Eyes: PERRLA, EOM intact. Mouth: No erythema or tonsilar enlargement. No masses noted. Neck: No thyromegaly. No lymphadenopathy. Heart: Regular rate and rhythm. No murmurs. Lungs: Decreased air entry bilaterally with crackles in the bases. No wheezes appreciated. Abdomen: Soft, non-tender. No hepatosplenomegaly. Extremities: +1 pitting edema bilaterally. Urinary Catheter Management: Vickers: Cath Placed During This Visit: yes Reason for Continuing Indwelling Catheter: Chronic Indwelling Urinary Catheter on Admission Urinary Catheter Date of Insertion: 09/21/23 Urinary Catheter Time of Insertion: 23:04 Data 10/02/23 05:57 10/02/23 05:57 Micro: Microbiology 09/28/23 Unknown Gram Stain - Final Pleural Fluid Body Fluid Culture - Final A&P Assessment and plan (1) Anasarca: The patient's swelling has improved overall after the Lasix that he received yesterday. His breathing is slightly better as well. (2) Hypokalemia: The patient has significant hypokalemia likely related to increased Lasix. We will increase his oral potassium to twice a day. (3) Pleural effusion: (4) Elevated bilirubin: The patient's bilirubin levels are elevated and there is some concern that this could be related to his gallbladder. He has sludge in his gallbladder on ultrasound. No being said there are no obvious signs of cholecystitis. It is certainly possible that this is related to fluid buildup as well. The patient has not been interested in pursuing this further and does not want to have a consultation for cholecystectomy at this time. (5) Thrombocytopenia: (6) Bacteremia due to Enterococcus: This seems to be treated sufficiently. Plan The patient request to be put on hospice as he is tired of having so many different treatments and does not want to have any further interventions. He would like to move towards hospice in a [facility] setting. We will work on getting this set up. He was previously at [facility] and we will plan to try and work towards this. They would not be able to take him today. We will continue to work on getting him set up for this. We will stop checking labs at this point and stop medications that could cause discomfort at this point. Attestations 2 Medical Necessity Statement*: The patient continues to need inpatient care as we transition him to hospice care at a nursing facility. His stay continues to need to cross 2 midnights. Coding Level of Care Code Acute Code for [facility] Diagnoses Anasarca R60.1 Hypokalemia E87.6 Pleural effusion J90 Elevated bilirubin R17 Thrombocytopenia D69.6 Bacteremia due to Enterococcus R78.81; B95.2
--- NOTE | 2023-10-02 17:57 | PM.PN ---
Subjective Subjective: Patient continues to remain afebrile. The white cell count seems to be coming down. We received the medical records from [facility]. Patient had a nonobstructive coronary artery disease. Medications: Medication Review Details: Current Medications Acetaminophen (Acetaminophen 325 Mg Tablet) 650 mg PO Q6H PRN PRN Reason: Mild/Mod Pain Or Temp >/= 101 Albuterol/Ipratropium (Ipratropium-Albuterol 3 Ml Neb) 3 ml INHALATION Q6H.RESP PRN PRN Reason: SHORTNESS OF BREATH Last Admin: 10/01/23 08:48 Dose: 3 ml Apixaban (Apixaban 5 Mg Tablet) 5 mg PO BID@0900,2100 [facility] Last Admin: 09/27/23 08:43 Dose: 5 mg Aspirin (Aspirin 81 Mg Ec Tablet) 81 mg PO QAM [facility] Last Admin: 09/27/23 05:15 Dose: 81 mg Gabapentin (Gabapentin 300 Mg Capsule) 300 mg PO TID [facility] Last Admin: 10/01/23 14:37 Dose: 300 mg Hydralazine HCl (Hydralazine 50 Mg Tablet) 50 mg PO TID [facility] Last Admin: 10/02/23 15:17 Dose: 50 mg Meropenem 1,000 mg/ Sodium (Chloride) 50 mls @ 100 mls/hr IV Q8H [facility]; Protocol Last Admin: 10/02/23 17:34 Dose: 100 mls/hr Fluconazole (Diflucan Premix) 200 mg in 100 mls @ 100 mls/hr IV Q24H [facility] Last Admin: 10/02/23 16:28 Dose: 100 mls/hr Vancomycin/PEG/NADA/Lysine/Water (Vancocin) 1,250 mg in 250 mls @ 250 mls/hr IV Q18H [facility] Last Infusion: 10/02/23 16:31 Dose: Infused Losartan Potassium (Losartan 50 Mg Tablet) 100 mg PO DAILY [facility] Last Admin: 10/02/23 09:22 Dose: 100 mg Metoprolol Tartrate (Metoprolol Tartrate 25 Mg Tablet) 25 mg PO BID@0900,2100 [facility] Last Admin: 10/02/23 09:22 Dose: 25 mg Ondansetron HCl (Ondansetron 2 Mg/Ml Sdv 2 Ml) 4 mg IVP Q6H PRN PRN Reason: NAUSEA AND VOMITING Pantoprazole Sodium (Pantoprazole 40 Mg Sdv) 40 mg IVP Q24H [facility] Last Admin: 10/01/23 20:21 Dose: 40 mg Polyethylene Glycol (Polyethylene Glycol 3350 Pkt 17 Gm) 17 gm PO DAILY [facility] Last Admin: 10/02/23 09:23 Dose: 17 gm Potassium Chloride (Potassium Chloride Er 20 Meq Tablet) 40 meq PO BID [facility] Last Admin: 10/02/23 17:33 Dose: 40 meq Potassium Phosphate (Phosphorus 250 Mg Tablet) 250 mg PO BID [facility] Last Admin: 10/02/23 17:34 Dose: 250 mg Trazodone HCl (Trazodone 50 Mg Tablet) 50 mg PO BEDTIME [facility] Last Admin: 09/30/23 19:43 Dose: 50 mg Vitals/I&O/Wt Last Vital Signs Temp 98.1 F 10/02/23 16:00 Pulse 59 L 10/02/23 16:00 Resp 17 10/02/23 16:00 BP 147/77 10/02/23 16:00 Pulse Ox 95 10/02/23 16:00 O2 Del Method Room Air 10/02/23 07:52 10/02/23 10/02/23 10/02/23 06:59 14:59 22:59 Intake Total 400 / 650 220 / 220 325 / 545 Output Total 3525 / 4825 650 / 650 Balance -3125 / -4175 -430 / -430 325 / -105 Weight last 48 hrs Weight 185 lb 1.6 oz Weight 195 lb 9.6 oz Physical Exam Narrative: GENERAL: The patient is alert and oriented to person. Not in any acute distress. Persistently confused HEENT: Moderate pallor. No icterus or lymphadenopathy.Oral cavity: There are no mucous membrane lesions. NECK: Trachea appears to be central. No masses noted. No JVD or thyromegaly appreciated. RESPIRATORY: Chest is symmetrical. No intercostals muscle retraction or any accessory muscle activation. There is no chest wall tenderness. Breath sounds are heard bilaterally. No rales or rhonchi heard. No evidence of any consolidation. BREASTS: Deferred. HEART: The heart sounds are normal. No S3 or S4. Short ejection systolic murmur at the aortic area. No diastolic murmurs. No pericardial rub ABDOMEN: No vessel pulsations or distention. No tenderness. No organomegaly appreciated. Bowel sounds are normally heard. : Deferred. RECTAL: Deferred. LYMPHATIC: No lymphadenopathy noted in the neck. EXTREMITIES: No edema or cyanosis. No clubbing. MUSCULOSKELETAL: No acute joint deformities or swelling SKIN: There are no significant rashes or ecchymosis NEUROPSYCHIATRIC: The patient is alert oriented to person. No focal motor deficits noted. Urinary Catheter Management: Vickers: Cath Placed During This Visit: yes Reason for Continuing Indwelling Catheter: Chronic Indwelling Urinary Catheter on Admission Urinary Catheter Date of Insertion: 09/21/23 Urinary Catheter Time of Insertion: 23:04 Data 10/02/23 05:57 10/02/23 05:57 Micro: Microbiology 09/28/23 Unknown Gram Stain - Final Pleural Fluid Body Fluid Culture - Final A&P Assessment and plan (1) Elevated troponin: Since the patient was found to have nonobstructive coronary disease, most likely this is related to a type II SD. At this point, the patient did not require specific intervention. (2) Status post transcatheter aortic valve replacement (TAVR) using bioprosthesis: The valve function appears to be appropriate. The patient and the family are wanting to hold off on the GABRIELA for the time being. Since the white cell count is coming down, it might be appropriate. (3) Chronic atrial fibrillation: Continue on the current medications. Patient is on long-term oral anticoagulation. (4) Sepsis: Patient is being treated for urosepsis. Other etiologies cannot be excluded. C. difficile also is a consideration. The pleural fluid appears to be an exudate. Etiology is unclear. Qualifiers: Sepsis acute organ dysfunction status: without acute organ dysfunction Sepsis type: sepsis due to unspecified organism Qualified Code(s): A41.9 - Sepsis, unspecified organism (5) UTI (urinary tract infection): Patient has a history of recurrent UTI. Qualifiers: Urinary tract infection type: catheter-associated UTI Indwelling urinary catheter type: unspecified Encounter type: sequela Qualified Code(s): T83.511S - Infection and inflammatory reaction due to indwelling urethral catheter, sequela; N39.0 - Urinary tract infection, site not specified (6) Large pleural effusion: Status post thoracentesis. Respiratory status seems to be stable (7) Hypokalemia: The potassium is being corrected Plan May continue on the current management. Once the family and the patient decides on the GABRIELA, we may make arrangements to have it done Attestations Medical Necessity Statement*: Deferred to the primary Coding Level of Care Code 69972 Diagnoses Elevated troponin R79.89 Status post transcatheter aortic valve replacement (TAVR) using bioprosthesis Z95.3 Chronic atrial fibrillation I48.20 Sepsis without acute organ dysfunction, due to unspecified organism A41.9 Sepsis acute organ dysfunction status: without acute organ dysfunction Sepsis type: sepsis due to unspecified organism Urinary tract infection associated with catheterization of urinary tract, unspecified indwelling urinary catheter type, sequela T83.511S; N39.0 Urinary tract infection type: catheter-associated UTI Indwelling urinary catheter type: unspecified Encounter type: sequela Large pleural effusion J90 Hypokalemia E87.6
[2023-10-02] MEDS: pantoprazole 40 mg SDV IVP (20:08)
--- NOTE | 2023-10-02 22:14 | CTR_ITS ---
PROCEDURE INFORMATION: Exam: CT Head Without Contrast Exam date and time: 10/02/2023 11:04 PM Age: 87 years old Clinical indication: Injury or trauma; Fall; Blunt trauma (contusions or hematomas); Patient HX: Patient fell striking head on floor. TECHNIQUE: Imaging protocol: Computed tomography of the head without contrast. Radiation optimization: All CT scans at this facility use at least one of these dose optimization techniques: automated exposure control; mA and/or kV adjustment per patient size (includes targeted exams where dose is matched to clinical indication); or iterative reconstruction. COMPARISON: CT head wo con* [id number] 09/21/2023 5:34 PM RADIATION DOSE METRICS: Total DLP (mGy-cm): 1032.58 FINDINGS: Brain: Large amount of diffuse white matter disease likely reflecting chronic microvascular ischemic changes. Cerebral ventricles: No ventriculomegaly. Paranasal sinuses: Paranasal sinus opacifications. Mastoid air cells: Visualized mastoid air cells are well aerated. Bones: Unremarkable. No acute fracture. Soft tissues: Unremarkable. CT/CT head wo con* [id number] IMPRESSION: 1. Negative for intracranial hemorrhage or mass effect 2. Large amount of diffuse white matter disease likely reflecting chronic microvascular ischemic changes. 3. Paranasal sinus opacifications.
--- NOTE | 2023-10-02 22:38 | PC.NURSE ---
Patient's is the only listed family member in the chart. She is currently inpatient and not able to be notified of patient fall.
--- NOTE | 2023-10-02 23:30 | PC.NURSE ---
patient was found by Rosa Cisneros RN sitting on the floor beside the bedside commode and bed, after being placed on the bedside commode. Patient was assessed by this nurse, Tracy Good RN and charge nurse. No complaints of pain by the patient and no wounds were assessed. Vital signs post fall: 143/75, 77 heart rate, 91% oxygen on room air, 98.6 temperature, 16 respirations. Patient was assisted back to bed and physician was notified. Bed in the lowest position, call light within reach, bed alarm reset. Physician ordered head CT STAT.
[2023-10-03] VITALS (10 sets, daily range): BP systolic 148–182; BP diastolic 73–84; PULSE 72–81; RESP 12–20; TEMP 36.5–36.8; O2SAT 94–95; BMI 25.4
[2023-10-03] MEDS: meropenem 1,000 MG in sodium chloride 0.9% (plus) 50 ML 100 MG IV ×2 (02:27→12:33)
[2023-10-03 02:40] LABS: ANCA Screen NEGATIVE (NEGATIVE)
--- NOTE | 2023-10-03 08:49 | PM.PN ---
Subjective Subjective: Patient and the family has decided for comfort measures. Patient denies any chest pain or unusual shortness of breath. The potassium is back to normal Medications: Medication Review Details: Current Medications Acetaminophen (Acetaminophen 325 Mg Tablet) 650 mg PO Q6H PRN PRN Reason: Mild/Mod Pain Or Temp >/= 101 Albuterol/Ipratropium (Ipratropium-Albuterol 3 Ml Neb) 3 ml INHALATION Q6H.RESP PRN PRN Reason: SHORTNESS OF BREATH Last Admin: 10/01/23 08:48 Dose: 3 ml Apixaban (Apixaban 5 Mg Tablet) 5 mg PO BID@0900,2100 [facility] [place] Last Admin: 09/27/23 08:43 Dose: 5 mg Aspirin (Aspirin 81 Mg Ec Tablet) 81 mg PO QAM [facility] [place] Last Admin: 09/27/23 05:15 Dose: 81 mg Gabapentin (Gabapentin 300 Mg Capsule) 300 mg PO TID [facility] [place] Last Admin: 10/01/23 14:37 Dose: 300 mg Hydralazine HCl (Hydralazine 50 Mg Tablet) 50 mg PO TID [facility] [place] Last Admin: 10/02/23 21:16 Dose: 50 mg Meropenem 1,000 mg/ Sodium (Chloride) 50 mls @ 100 mls/hr IV Q8H [facility] [place]; Protocol Last Infusion: 10/03/23 04:04 Dose: Infused Fluconazole (Diflucan Premix) 200 mg in 100 mls @ 100 mls/hr IV Q24H [facility] [place] Last Infusion: 10/02/23 18:36 Dose: Infused Vancomycin/PEG/NADA/Lysine/Water (Vancocin) 1,250 mg in 250 mls @ 250 mls/hr IV Q18H [facility] [place] Last Infusion: 10/02/23 16:31 Dose: Infused Losartan Potassium (Losartan 50 Mg Tablet) 100 mg PO DAILY [facility] [place] Last Admin: 10/02/23 09:22 Dose: 100 mg Metoprolol Tartrate (Metoprolol Tartrate 25 Mg Tablet) 25 mg PO BID@0900,2100 [facility] [place] Last Admin: 10/02/23 21:16 Dose: 25 mg Ondansetron HCl (Ondansetron 2 Mg/Ml Sdv 2 Ml) 4 mg IVP Q6H PRN PRN Reason: NAUSEA AND VOMITING Pantoprazole Sodium (Pantoprazole 40 Mg Sdv) 40 mg IVP Q24H [facility] [place] Last Admin: 10/02/23 20:08 Dose: 40 mg Polyethylene Glycol (Polyethylene Glycol 3350 Pkt 17 Gm) 17 gm PO DAILY [facility] [place] Last Admin: 10/03/23 08:33 Dose: Not Given Potassium Chloride (Potassium Chloride Er 20 Meq Tablet) 40 meq PO BID [facility] [place] Last Admin: 10/02/23 17:33 Dose: 40 meq Potassium Phosphate (Phosphorus 250 Mg Tablet) 250 mg PO BID [facility] [place] Last Admin: 10/02/23 17:34 Dose: 250 mg Trazodone HCl (Trazodone 50 Mg Tablet) 50 mg PO BEDTIME [facility] [place] Last Admin: 09/30/23 19:43 Dose: 50 mg Vitals/I&O/Wt Last Vital Signs Temp 97.7 F 10/03/23 08:00 Pulse 72 10/03/23 08:01 Resp 16 10/03/23 08:01 BP 163/83 10/03/23 08:00 Pulse Ox 94 10/03/23 08:01 O2 Del Method Room Air 10/03/23 08:01 10/02/23 10/03/23 10/03/23 22:59 06:59 14:59 Intake Total 475 / 695 50 / 745 Output Total 550 / 1200 Balance 475 / 45 -500 / -455 Weight last 48 hrs Weight 182 lb 8 oz Weight 185 lb 1.6 oz Physical Exam Narrative: GENERAL: The patient is alert and oriented to person. Not in any acute distress. HEENT: Moderate pallor. No icterus or lymphadenopathy.Oral cavity: There are no mucous membrane lesions. NECK: Trachea appears to be central. No masses noted. No JVD or thyromegaly appreciated. RESPIRATORY: Chest is symmetrical. No intercostals muscle retraction or any accessory muscle activation. There is no chest wall tenderness. Breath sounds are heard bilaterally. No rales or rhonchi heard. No evidence of any consolidation. BREASTS: Deferred. HEART: The heart sounds are normal. No S3 or S4. Short ejection systolic murmur at the aortic area. No diastolic murmurs. No pericardial rub ABDOMEN: No vessel pulsations or distention. No tenderness. No organomegaly appreciated. Bowel sounds are normally heard. : Deferred. RECTAL: Deferred. LYMPHATIC: No lymphadenopathy noted in the neck. EXTREMITIES: No edema or cyanosis. No clubbing. MUSCULOSKELETAL: No acute joint deformities or swelling SKIN: There are no significant rashes or ecchymosis NEUROPSYCHIATRIC: The patient is alert oriented to person. No focal motor deficits noted. Urinary Catheter Management: Vickers: Cath Placed During This Visit: yes Reason for Continuing Indwelling Catheter: Chronic Indwelling Urinary Catheter on Admission Urinary Catheter Date of Insertion: 09/21/23 Urinary Catheter Time of Insertion: 23:04 Data 10/02/23 05:57 10/03/23 21:28 Other Labs: Laboratory Last Values WBC 17.27 10^3/uL (3.29-11.43) H 10/02/23 05:57 RBC 2.70 10^6/uL (3.85-5.65) L 10/02/23 05:57 Hgb 9.30 g/dL (11.27-16.99) L 10/02/23 05:57 Hct 28.5 % (37-53) L 10/02/23 05:57 MCV 105.6 fl (82-101) H 10/02/23 05:57 MCH 34.4 pg (27-33) H 10/02/23 05:57 MCHC 32.6 g/dL (30-55) 10/02/23 05:57 RDW 16.7 % (12.1-15.1) H 10/02/23 05:57 Plt Count 60 10^3/cmm (157-399) L 10/02/23 05:57 MPV 11.5 fL (7.4-10.4) H 10/02/23 05:57 Neut % (Auto) 50.1 % 10/02/23 05:57 Lymph % (Auto) 42.8 % 10/02/23 05:57 [place] % (Auto) 5.3 % 10/02/23 05:57 Eos % (Auto) 1.0 % 10/02/23 05:57 Baso % (Auto) 0.3 % 10/02/23 05:57 Neut # (Auto) 8.66 10^3/uL (1.8-7.7) H 10/02/23 05:57 Lymph # (Auto) 7.4 10^3/uL (0.8-4.8) H 10/02/23 05:57 [place] # (Auto) 0.9 10^3/uL (0.2-0.9) 10/02/23 05:57 Eos # (Auto) 0.2 10^3/uL (0.0-0.8) 10/02/23 05:57 Baso # (Auto) 0.1 10^3/uL (0.0-0.1) 10/02/23 05:57 Nucleated RBC % (auto) 0 % 10/02/23 05:57 Nucleated RBCs # 0.0 /100WBC 10/02/23 05:57 Differential Comment Yes 09/28/23 Unknown PT 18.50 SECONDS (12.1-14.9) H 09/29/23 10:12 INR 1.49 (0.8-1.2) H 09/29/23 10:12 APTT 135.4 SECONDS (23.9-36.7) H D 09/23/23 13:50 Sodium 140 mmol/L (136-145) 10/02/23 05:57 Potassium 2.6 mmol/L (3.5-5.1) L* 10/02/23 05:57 Chloride 99 mmol/L (98-107) 10/02/23 05:57 Carbon Dioxide 33 mmol/L (22-29) H 10/02/23 05:57 Anion Gap 10.6 (5-19) 10/02/23 05:57 BUN 17 mg/dL (8-23) 10/02/23 05:57 Creatinine 0.7 mg/dL (0.7-1.2) 10/02/23 05:57 GFR Calculation Not Reportable 10/02/23 05:57 Glucose 100 mg/dL (65-115) 10/02/23 05:57 POC Glucose 105 mg/dL (70-110) 09/25/23 10:39 Calculated Osmolality 292 mOsm/kg (285-295) 10/02/23 05:57 Lactic Acid 1.6 mmol/L (0.5-2.2) 09/21/23 16:50 Calcium 8.9 mg/dL (8.5-10.5) 10/02/23 05:57 Phosphorus 2.1 mg/dL (2.5-4.5) L 09/27/23 11:55 Magnesium 1.7 mg/dL (1.7-2.3) 10/02/23 05:57 Total Bilirubin 2.3 mg/dL (0.15-1.2) H 10/02/23 05:57 AST 43 U/L (0-40) H 10/02/23 05:57 ALT 26 U/L (0-41) 10/02/23 05:57 Alkaline Phosphatase 216 U/L (40-130) H 10/02/23 05:57 Creatine Kinase 22 U/L (39-308) L 09/29/23 14:48 Troponin T 5th Gen ng/L 165 ng/L (0-15) H* 09/27/23 11:55 Troponin T Baseline 112 ng/L (0-15) H* 09/21/23 16:50 Troponin T 120 Minute 120.0 ng/L (0-15) H 09/21/23 19:02 Delta Troponin T 8.0 ABS# (0-10) 09/21/23 19:02 Troponin T Hi Sens 6Hr 113.4 ng/L (0-15) H 09/21/23 23:13 Troponin T Hi Sens 6Hr Delta 1.4 ng/L (0-12) 09/21/23 23:13 C-Reactive Protein 111.3 mg/L (0.0-4.9) H 10/02/23 05:57 Total Protein 5.0 g/dL (6.6-8.7) L 10/02/23 05:57 Albumin 2.8 g/dL (3.5-5.2) L 10/02/23 05:57 Globulin 2.2 g/dL (1.3-4.6) 10/02/23 05:57 Folate 17.7 ng/mL (4.5-32.2) 09/25/23 20:43 Procalcitonin 0.07 ng/mL (0-0.5) 09/21/23 19:02 TSH 2.98 uIU/mL (0.27-4.20) 09/21/23 19:02 Urine Color Dark yellow (Yellow) 09/21/23 18:20 Urine Appearance Cloudy (CLEAR) A 09/21/23 18:20 Urine pH 6 (5-7) 09/21/23 18:20 Ur Specific [place] 1.015 (1.005-1.030) 09/21/23 18:20 Urine Protein 1+ (Negative) H 09/21/23 18:20 Urine Glucose (UA) Norm (Normal) 09/21/23 18:20 Urine Ketones Negative (Negative) 09/21/23 18:20 Urine Blood 3+ (Negative) H 09/21/23 18:20 Urine Nitrate Negative (Negative) 09/21/23 18:20 Urine Bilirubin Neg (Negative) 09/21/23 18:20 Urine Urobilinogen Norm mg/dL (Negative) 09/21/23 18:20 Ur Leukocyte Esterase 2+ (Negative) H 09/21/23 18:20 Urine RBC >100 /hpf (0-2) H 09/21/23 18:20 Urine WBC >100 /hpf (0-5) H 09/21/23 18:20 Ur Squamous Epith Cells Rare /hpf (0-5) 09/21/23 18:20 Amorphous Sediment Not Reportable 09/21/23 18:20 Urine Bacteria Trace /hpf (NONE) 09/21/23 18:20 Urine Mucus Trace /hpf 09/21/23 18:20 Urine Yeast 4+ /hpf H 09/21/23 18:20 Fluid Color Pale yellow 09/28/23 Unknown Fluid Appearance Cloudy 09/28/23 Unknown Fluid WBC 250 /uL 09/28/23 Unknown Fluid RBC 1.000 10^3/uL 09/28/23 Unknown Fld Polynuclear WBCs # 0.075 09/28/23 Unknown Fld Polynuclear WBCs % 30.000 % 09/28/23 Unknown Fl Mononucl WBCs #(Auto) 0.175 09/28/23 Unknown Fl Mononuclear % Auto 70.000 % 09/28/23 Unknown Fld Crystal Laterality Pleural fluid 09/28/23 Unknown Fluid Albumin 0.6 g/dL 09/28/23 Unknown Fluid LDH 88 U/L 09/28/23 Unknown Pleural Total Protein 0.8 g/dL 09/28/23 Unknown Vancomycin Trough 17.9 ug/mL (10-15) H 09/29/23 14:48 Rheumatoid Factor 11.0 IU/mL (0-14) 09/29/23 14:48 Cycl Citrul Peptide IgG <16 UNITS 09/29/23 14:48 AYDEE IFA Animal Tis Res Negative (NEGATIVE) 09/29/23 14:48 ANCA Screen Negative (NEGATIVE) 09/29/23 14:48 ANCA Titer Not Reportable 09/29/23 14:48 KRISTINE-1 Antibody <1.0 neg AI (<1.0 NEG) 09/29/23 14:48 SS-A Antibody <1.0 neg AI (<1.0 NEG) 09/29/23 14:48 SS-B Antibody <1.0 neg AI (<1.0 NEG) 09/29/23 14:48 Sm (Uriostegui) Antibody <1.0 neg AI (<1.0 NEG) 09/29/23 14:48 PODODERMATOLOGIST Antibody <1.0 neg AI (<1.0 NEG) 09/29/23 14:48 Scl-70 Antibody <1.0 neg AI (<1.0 NEG) 09/29/23 14:48 Centromere B Antibody <1.0 neg AI (<1.0 NEG) 09/29/23 14:48 Complement C3c 119 mg/dL 09/29/23 14:48 Complement C4c 19 mg/dL 09/29/23 14:48 CH50 Classical Pathway 58 U/mL (31-60) 09/29/23 14:48 Hepatitis A IgM Ab Non-reactive (Nonreactive) 10/02/23 05:57 Hep Bs Antigen Non-reactive (Nonreactive) 10/02/23 05:57 Hep Bs Antibody < 3.5 (11.5-1000) L 10/02/23 05:57 Hep B Core Total Ab Non-reactive (Nonreactive) 10/02/23 05:57 Hepatitis C Antibody Non-reactive (Nonreactive) 10/02/23 05:57 Beta-(1,3)-D-Glucan <31 pg/mL 09/24/23 09:30 B-(1,3)-D-Glucan Intrp Negative 09/24/23 09:30 Micro: Microbiology 09/28/23 Unknown Gram Stain - Final Pleural Fluid Body Fluid Culture - Final A&P Assessment and plan (1) Elevated troponin: Since the patient was found to have nonobstructive coronary disease, most likely this is related to a type II TN. At this point, the patient did not require specific intervention. (2) Status post transcatheter aortic valve replacement (TAVR) using bioprosthesis: The valve function appears to be appropriate. The patient and the family are wanting to hold off on the GABRIELA for the time being. Since the white cell count is coming down, it might be appropriate. (3) Chronic atrial fibrillation: Continue on the current medications. Patient is on long-term oral anticoagulation. (4) Sepsis: Management as per the primary Qualifiers: Sepsis acute organ dysfunction status: without acute organ dysfunction Sepsis type: sepsis due to unspecified organism Qualified Code(s): A41.9 - Sepsis, unspecified organism (5) Large pleural effusion: Status post thoracentesis. Respiratory status seems to be stable (6) Hypokalemia: The potassium is back to normal Plan Since the patient and the family wants only comfort measures, I may sign off at this point. Please feel free to contact me with any further questions or concerns regarding his cardiovascular status Attestations Medical Necessity Statement*: Deferred to the primary Coding Level of Care Code 50912 Diagnoses Elevated troponin R79.89 Status post transcatheter aortic valve replacement (TAVR) using bioprosthesis Z95.3 Chronic atrial fibrillation I48.20 Sepsis without acute organ dysfunction, due to unspecified organism A41.9 Sepsis acute organ dysfunction status: without acute organ dysfunction Sepsis type: sepsis due to unspecified organism Large pleural effusion J90 Hypokalemia E87.6
[2023-10-03] MEDS: phosphorus 250 mg Tablet PO ×2 (09:50→17:32)
[2023-10-03] MEDS: metoprolol tartrate 25 mg Tablet PO ×2 (09:50→21:08)
[2023-10-03] MEDS: losartan 50 mg Tablet 100 MG PO (09:50)
[2023-10-03] MEDS: hyDRALAzine 50 mg Tablet PO ×3 (09:50→21:08)
[2023-10-03] MEDS: potassium chloride ER 20 mEq Tablet 40 MEQ PO ×2 (09:51→17:32)
[2023-10-03] MEDS: vancomycin 1,250 MG/250 ML PIGGYBACK 250 MG IV (09:56)
[2023-10-03] MEDS: fluconazole premix 200 MG/100 ML PREMIX 100 MG IV (15:38)
--- NOTE | 2023-10-03 17:15 | P.PN_ITS ---
Subjective 2 Subjective: The patient is feeling okay today. He wants to move to comfort care. He does not have any significant pain at this time. Vitals/I&O/Wt Last Vital Signs Temp 97.8 F 10/03/23 16:00 Pulse 74 10/03/23 16:00 Resp 17 10/03/23 16:00 BP 161/78 10/03/23 16:00 Pulse Ox 94 10/03/23 16:00 O2 Del Method Room Air 10/03/23 12:22 10/03/23 10/03/23 10/03/23 06:59 14:59 22:59 Intake Total 50 / 745 540 / 540 Output Total 550 / 1200 Balance -500 / -455 540 / 540 Weight last 48 hrs Weight 182 lb 8 oz Weight 185 lb 1.6 oz Physical Exam 2 Narrative: General: Alert and oriented x 3. In no acute distress. Generalized weakness noted. Mouth: No erythema or tonsilar enlargement. No masses noted. Neck: No thyromegaly. No lymphadenopathy. Heart: Regular rate and rhythm. No murmurs. Lungs: Decreased air entry bilaterally with crackles in the bases. No wheezes appreciated. Abdomen: Soft, non-tender. No hepatosplenomegaly. Extremities: +1 pitting edema bilaterally. Urinary Catheter Management: Vickers: Cath Placed During This Visit: yes Reason for Continuing Indwelling Catheter: Chronic Indwelling Urinary Catheter on Admission Urinary Catheter Date of Insertion: 09/21/23 Urinary Catheter Time of Insertion: 23:04 Data 10/02/23 05:57 10/02/23 05:57 Micro: Microbiology 09/28/23 Unknown Fungal Smear - Preliminary Pleural Fluid 09/28/23 Unknown Gram Stain - Final Pleural Fluid Body Fluid Culture - Final A&P Assessment and plan (1) Anasarca: The patient's swelling has improved overall. His breathing seems to be stable at this time. (2) Hypokalemia: The patient has significant hypokalemia likely related to increased Lasix. His potassium was replaced, however no further blood draws are being done due to moving to comfort care. (3) Pleural effusion: (4) Elevated bilirubin: (5) Thrombocytopenia: (6) Bacteremia due to Enterococcus: Plan We have been working on getting the patient set up for moving towards comfort care. We will move towards comfort care treatment here in the hospital and get him set up for this as an outpatient. He would like to go to [place] where he will be eventually transition to hospice care. Currently awaiting placement. We will have case management work towards helping get this arranged. Attestations 2 Medical Necessity Statement*: The patient is moving towards comfort care and continues to need medications and assistance due to his generalized weakness. His stay will cross 2 midnights and we will continue to work towards getting him placement as his is unable to care for him at home even with hospice assistance. Coding Level of Care Code Acute Code for Chg Fwd Diagnoses Anasarca R60.1 Hypokalemia E87.6 Pleural effusion J90 Elevated bilirubin R17 Thrombocytopenia D69.6 Bacteremia due to Enterococcus R78.81; B95.2
[2023-10-03] MEDS: pantoprazole 40 mg SDV IVP (21:08)
[2023-10-03 22:01] LABS: Blood Urea Nitrogen 19 mg/dL (8-23); Carbon Dioxide 27 mmol/L (22-29); Chloride 104 mmol/L (98-107); Creatinine Clr Calc Pharmacy 72.0399; Glucose 117 mg/dL (65-115); NT Pro B Type Natriuretic Pept 9022 pg/mL (0-450); Osmolality Calculated 295 mOsm/kg (285-295); Sodium 141 mmol/L (136-145)
[2023-10-04] VITALS (7 sets, daily range): BP systolic 166–195; BP diastolic 79–94; PULSE 69–92; RESP 16–18; TEMP 36.6–37; O2SAT 90–96
[2023-10-04] MEDS: hyDRALAzine 20 mg/mL INJ 1 mL 5 MG IVP (00:10)
[2023-10-04] MEDS: hyDRALAzine 50 mg Tablet PO ×3 (07:37→21:45)
[2023-10-04] MEDS: losartan 50 mg Tablet 100 MG PO (07:37)
[2023-10-04] MEDS: phosphorus 250 mg Tablet PO ×2 (07:37→17:13)
[2023-10-04] MEDS: potassium chloride ER 20 mEq Tablet 40 MEQ PO (07:38)
[2023-10-04] MEDS: polyethylene glycol 3350 Pkt 17 gm PO (07:39)
[2023-10-04] MEDS: metoprolol tartrate 25 mg Tablet PO ×2 (07:40→21:45)
--- NOTE | 2023-10-04 12:05 | PC.SOCIAL ---
IMM Update Pg. 2 of IMM updated and reviewed with patient who verbalized understanding. Copy provided.
--- NOTE | 2023-10-04 16:55 | P.PN_ITS ---
Subjective 2 Subjective: Hospital course, labs appreciated. Patient seen laying comfortably in bed. Awake and alert. Denies any new complaints. States she is comfortable for now. Vitals/I&O/Wt Last Vital Signs Temp 98.3 F 10/04/23 12:00 Pulse 69 10/04/23 12:00 Resp 18 10/04/23 12:00 BP 170/79 10/04/23 12:00 Pulse Ox 93 10/04/23 12:00 O2 Del Method Room Air 10/04/23 08:16 10/04/23 10/04/23 10/04/23 06:59 14:59 22:59 Intake Total 120 / 1015 Output Total 300 / 600 Balance -180 / 415 Weight last 48 hrs Weight 79.634 kg Weight 82.781 kg Physical Exam 2 Narrative: Deferred given hospice status Urinary Catheter Management: Vickers: Cath Placed During This Visit: yes Reason for Continuing Indwelling Catheter: Chronic Indwelling Urinary Catheter on Admission Urinary Catheter Date of Insertion: 09/21/23 Urinary Catheter Time of Insertion: 23:04 Data 10/02/23 05:57 10/03/23 21:28 Micro: Microbiology 09/29/23 09:42 Blood Culture - Final Blood NO GROWTH AFTER 5 DAYS 09/29/23 09:35 Blood Culture - Final Blood NO GROWTH AFTER 5 DAYS 09/28/23 Unknown Fungal Smear - Preliminary Pleural Fluid A&P Assessment and plan (1) Anasarca: The patient's swelling has improved overall. His breathing seems to be stable at this time. (2) Hypokalemia: The patient has significant hypokalemia likely related to increased Lasix. His potassium was replaced, however no further blood draws are being done due to moving to comfort care. (3) Pleural effusion: (4) Elevated bilirubin: (5) Thrombocytopenia: (6) Bacteremia due to Enterococcus: Plan Multiple goals of care discussions were done with family and patient earlier this admission. Plan was to go ahead with multiple investigations though patient requested to the previous physician of moving towards hospice/comfort care measures. Currently comfort care measures and transferred to SNF with hospice care is being set up. Patient is comfortable. Continue treatment as per hospice protocol. DNR/DNI. Dysphagia level 5 diet Attestations 2 Medical Necessity Statement*: Requires further hospitalization while hospice care is being set up in a patient who was initially admitted for altered mental status, Enterococcus bacteremia with high concerns for infective endocarditis, UTI Diagnoses Anasarca R60.1 Hypokalemia E87.6 Pleural effusion J90 Elevated bilirubin R17 Thrombocytopenia D69.6 Bacteremia due to Enterococcus R78.81; B95.2
[2023-10-04] MEDS: pantoprazole 40 mg SDV IVP (21:45)
[2023-10-05] VITALS (8 sets, daily range): BP systolic 151–173; BP diastolic 66–83; PULSE 81–103; RESP 18–22; TEMP 36.6–37.4; O2SAT 92–98
[2023-10-05 08:16] LABS: THYROID PEROXIDASE ANTIBODIES <1 IU/mL (<9)
[2023-10-05] MEDS: metoprolol tartrate 25 mg Tablet PO ×2 (09:21→21:02)
[2023-10-05] MEDS: losartan 50 mg Tablet 100 MG PO (09:21)
[2023-10-05] MEDS: hyDRALAzine 50 mg Tablet PO ×3 (09:21→21:02)
[2023-10-05] MEDS: polyethylene glycol 3350 Pkt 17 gm PO (09:22)
--- NOTE | 2023-10-05 15:34 | P.PN_ITS ---
Subjective 2 Subjective: No acute events overnight. Seen with at bedside. Patient seems to be in some pain, less comfortable today. Vitals/I&O/Wt Last Vital Signs Temp 97.8 F 10/05/23 07:40 Pulse 81 10/05/23 11:25 Resp 20 H 10/05/23 11:25 BP 153/74 10/05/23 11:25 Pulse Ox 98 10/05/23 11:25 O2 Del Method Room Air 10/05/23 11:25 10/05/23 10/05/23 10/05/23 06:59 14:59 22:59 Intake Total 0 / 180 Output Total 250 / 1300 Balance -250 / -1120 Weight last 48 hrs Weight 78.67 kg Weight 79.634 kg Physical Exam 2 Narrative: Deferred given hospice status Urinary Catheter Management: Vickers: Cath Placed During This Visit: yes Reason for Continuing Indwelling Catheter: Other Urinary Catheter Date of Insertion: 09/21/23 Urinary Catheter Time of Insertion: 23:04 Data 10/02/23 05:57 10/03/23 21:28 Micro: Microbiology 10/03/23 23:39 Urine Culture - Preliminary Urine Catheterized A&P Assessment and plan (1) Anasarca: The patient's swelling has improved overall. His breathing seems to be stable at this time. (2) Hypokalemia: The patient has significant hypokalemia likely related to increased Lasix. His potassium was replaced, however no further blood draws are being done due to moving to comfort care. (3) Pleural effusion: (4) Elevated bilirubin: (5) Thrombocytopenia: (6) Bacteremia due to Enterococcus: Plan Multiple goals of care discussions were done with family and patient earlier this admission. Plan was to go ahead with multiple investigations though patient requested to the previous physician of moving towards hospice/comfort care measures. Currently comfort care measures and transferred to SNF with hospice care is being set up. Patient is comfortable. As hospice is being set up at senior living will initiate hospice care while being inpatient. DNR/DNI. Attestations 2 Medical Necessity Statement*: Requires further hospitalization while outpatient hospice is being set up Coding Level of Care Code Acute Code for Chg Fwd Diagnoses Anasarca R60.1 Hypokalemia E87.6 Pleural effusion J90 Elevated bilirubin R17 Thrombocytopenia D69.6 Bacteremia due to Enterococcus R78.81; B95.2
[2023-10-05] MEDS: pantoprazole 40 mg SDV IVP (21:02)
[2023-10-06] VITALS (10 sets, daily range): BP systolic 133–161; BP diastolic 76–79; PULSE 72–83; RESP 12–24; TEMP 36.7–37.2; O2SAT 92–97
--- NOTE | 2023-10-06 05:58 | PC.NURSE ---
pt refused multiple times to turn or reposition nurse is aware
[2023-10-06] MEDS: morphine 4 mg/mL SDV 1 mL IVP ×6 (06:30→18:59)
[2023-10-06 08:30] LABS: Vit D 1,25 (Oh)2, Total 17 pg/mL (18-72); Vit D2 1,25 (Oh)2 <8 pg/mL; Vit D3 1,25 (Oh)2 17 pg/mL
[2023-10-06] MEDS: blistex lip oint 7 gm Tube 1 APPLIC TOPICAL (08:52)
[2023-10-06] MEDS: morphine 10 mg/0.5 mL oral liq UD SUBLINGUAL (08:52)
--- NOTE | 2023-10-06 10:54 | P.DS_ITS ---
Discharge Providers Date of Admission: 09/21/23 19:05 Date of Discharge: October 06, 2023 Attending Provider at Admission: Catina Maciel MD Attending Provider at Discharge: Cuong Martínez MD Primary Care Provider: Shayla Mesa MD Diagnoses at Discharge Discharge Diagnosis (1) Anasarca: Status: Acute (2) Hypokalemia: Status: Acute (3) Pleural effusion: Status: Acute (4) Elevated bilirubin: Status: Acute (5) Thrombocytopenia: Status: Acute (6) Bacteremia due to Enterococcus: Status: Acute Reason for Visit Reason for Visit: Weakness Brief History: History as per HPI: Eddy Miner is a 87 year old male recent history of appendicitis requiring laparoscopic appendectomy, recent history of TAVR, recent history of Enterococcus bacteremia, etiology unclear on Rocephin and ampicillin, Vickers catheter in place, atrial fibrillation, pacemaker placement, on Eliquis therapy, who presents [facility] due to altered mental status. Currently patient alert to person, not to place, to time he thinks he is at the intermediate, he can follow commands, he is able to use my fingers bilaterally, wiggle his toes able to smile for me, he denies any complaints, no chest pain, no shortness of breath, no abdominal pain, no fevers, he was hypertensive in the emergency room, pulse 104, respiratory rate 25, temperature 98.2, 93% on room air, no facial droop, no slurring of his words, cannot discern any focal weakness on examination, Hospital Course Hospital Course Patient was admitted to the hospital further evaluation and management of altered mental status thought to be in setting of UTI, sepsis along with recent history of bacteremia from Enterococcus. He was continued on IV antibiotics which were broadened given concerns for UTI. During hospitalization blood cultures remain negative but urine culture positive for yeast. On admission there were concerns for non-ST elevation UT for which cardiology was consulted and he underwent repeat echocardiogram that showed an EF of 50% with moderate concentric LVH, grade 2 diastolic dysfunction with bioprosthetic aortic valve, mild to moderate eccentric aortic regurgitation, mild TR with PASP of 44 mmHg. He was found to have a slightly more pericardial effusion as compared to the study done on 08/31. He continued to have leukocytosis for which he again underwent further investigation with CT of chest abdomen pelvis. For persistent pleural effusion he again underwent thoracentesis to rule out empyema. Because of prolonged hospitalization both currently and previous with constant decline in his health multiple goals of care discussions were done with patient and his family at bedside. Patient requested for hospice and comfort care measures. Patient is being discharged to hospice for further management. Physical Exam Narrative: Deferred given hospice status Urinary Catheter Management: Vickers: Cath Placed During This Visit: yes Reason for Continuing Indwelling Catheter: Hospice/Comfort/Palliative Care Urinary Catheter Date of Insertion: 09/21/23 Urinary Catheter Time of Insertion: 23:04 Discharge Data Studies Completed and Pending Completed Studies During Hospitalization Category Date Time Status CT abdomen pelvis wo con 08885 Routine Cat Scan 09/21/23 20:[address] [place] [address]/[id number] Routine Cat Scan 09/27/23 10:[address] head wo con* 12601 Stat Cat Scan 09/21/23 16:[address] head wo con* 10557 Stat Cat Scan 10/02/23 22:14 Completed CXRP [XR chest 1V portable [id number]] Routine Exams 09/27/23 09:16 Completed XR chest 1V portable [id number] Stat Exams 09/21/23 16:10 Completed XR chest 1V portable [id number] Stat Exams 09/29/23 13:59 Completed XR chest 1V portable [id number] Stat Exams 09/30/23 13:34 Completed CV. echo limited 05617 Routine Ultrasound 09/27/23 09:16 Completed US abdomen limited 18727 Routine Ultrasound 09/29/23 09:47 Completed US thoracentesis [id number] Routine Ultrasound 09/29/23 14:52 Completed US thoracentesis [id number] Routine Ultrasound 09/30/23 14:52 Completed US venous duplex upper extremity bilater [CV venous Ultrasound 09/28/23 15:39 [place] [id number]] Routine Pending at discharge Category Date Time Status AYDEE SCREEN [AYDEE Profile Rheumatology] AM LABS Lab 09/29/23 14:48 Results CDIFF [C.Diff PCR (Lab)] Routine Lab 09/27/23 10:02 Uncollected Fungal Culture not HR/SK/BL Routine Lab 09/28/23 Results Vitamin B1(Thiamin) Plas/Ser Routine Lab 09/25/23 20:43 Received Radiology Impressions Abdomen/Pelvis CT 09/21/23 20:20 IMPRESSION: 1. No hydronephrosis of either kidney. No visible renal or ureteral calculus. 2. Mild perinephric stranding bilaterally, see above discussion. 3. Prostate enlargement and suspected urinary bladder wall thickening, see above. 4. No free air or significant bowel distention. 5. Small amount of fluid in the posterior lower pelvis, not significantly changed. 6. Large bilateral pleural effusions and mild lower lung opacities, see above. 7. Small pericardial effusion. 8. Other findings discussed above. Chest/Abdomen/Pelvis CT 09/27/23 10:02 IMPRESSION: 1. Moderate to large bilateral pleural effusions have slightly increased in size since 09/08/2023. 2. Mild pulmonary congestion and compressive atelectasis. 3. Prior aortic valve replacement. 4. No renal obstruction. 5. Variable attenuation in the spleen may be from prior infarcts. No change since 09/08/2023. 6. Extensive soft tissue anasarca. Soft tissue anasarca has progressed since the prior recent studies. Small amount of fluid in the pelvis. No persistent focal collection and no suspicious abscess. 7. Mild perinephric stranding. Abdomen Ultrasound 09/29/23 09:47 IMPRESSION: 1. Sludge within the gallbladder. No stones identified. No wall thickening. 2. Common bile duct is top normal size. 3. No ascites. Chest X-Ray 09/30/23 13:34 IMPRESSION: Improved LEFT pleural effusion status post thoracentesis. LEFT basilar atelectasis. No pneumothorax. Thoracentesis Ultrasound 09/30/23 14:52 IMPRESSION: Uncomplicated ultrasound-guided LEFT thoracentesis. Head CT 10/02/23 22:14 IMPRESSION: 1. Negative for intracranial hemorrhage or mass effect 2. Large amount of diffuse white matter disease likely reflecting chronic microvascular ischemic changes. 3. Paranasal sinus opacifications. Echocardiogram: CONCLUSIONS Normal LV size ejection fraction of around 50%, (visual). Moderate concentric left ventricular hypertrophy.abnormal septal motion consistent with pacemaker. Grade III/IV diastolic dysfunction (restrictive filling pattern), severely elevated filling pressures. Moderately increased left atrial size. Mildly increased right atrial size. The bioprosthetic valve the aortic position appears to be well- seated. Mild to moderate eccentric aortic regurgitation. Peak velocity of the aortic valve was 2.07 m/s with a peak gradient of 17 and a mean gradient of 8 mmHg. Trace to mild tricuspid valve regurgitation. Mild pulm hypertension with an estimated pulmonary artery peak systolic pressure 44 mmHg. Mild pulmonary valve regurgitation. Features of small pericardial effusion Possibly large left-sided pleural effusion Pacemaker wire in the right atrium and right ventricle Compared to the previous study from 09/01/2023, there is slightly more pericardial effusion(from trivial to small) Dr Tanna Guerin MD [facility] (Electronically Signed) Final Date: 28 Sep 2023 08:59 Microbiology 10/03/23 23:39 Urine Catheterized Urine Culture - Final 09/29/23 09:42 Blood Blood Culture - Final NO GROWTH AFTER 5 DAYS 09/29/23 09:35 Blood Blood Culture - Final NO GROWTH AFTER 5 DAYS 09/28/23 Unknown Pleural Fluid Fungal Smear - Preliminary 09/28/23 Unknown Pleural Fluid Gram Stain - Final 09/28/23 Unknown Pleural Fluid Body Fluid Culture - Final 09/24/23 09:24 Blood Blood Culture - Final NO GROWTH AFTER 5 DAYS 09/24/23 09:30 Blood Blood Culture - Final NO GROWTH AFTER 5 DAYS 09/21/23 17:54 Blood Blood Culture - Final NO GROWTH AFTER 5 DAYS 09/21/23 16:50 Blood Blood Culture - Final NO GROWTH AFTER 5 DAYS 09/21/23 23:01 Other Source Catheter Tip Culture - Final Nohemy albicans 09/21/23 18:20 Urine,Clean Catch Urine Culture - Final Nohemy albicans Laboratory Results WBC 17.27 10^3/uL (3.29-11.43) H 10/02/23 05:57 RBC 2.70 10^6/uL (3.85-5.65) L 10/02/23 05:57 Hgb 9.30 g/dL (11.27-16.99) L 10/02/23 05:57 Hct 28.5 % (37-53) L 10/02/23 05:57 MCV 105.6 fl (82-101) H 10/02/23 05:57 MCH 34.4 pg (27-33) H 10/02/23 05:57 MCHC 32.6 g/dL (30-55) 10/02/23 05:57 RDW 16.7 % (12.1-15.1) H 10/02/23 05:57 Plt Count 60 10^3/cmm (157-399) L 10/02/23 05:57 MPV 11.5 fL (7.4-10.4) H 10/02/23 05:57 Neut % (Auto) 50.1 % 10/02/23 05:57 Lymph % (Auto) 42.8 % 10/02/23 05:57 [place] % (Auto) 5.3 % 10/02/23 05:57 Eos % (Auto) 1.0 % 10/02/23 05:57 Baso % (Auto) 0.3 % 10/02/23 05:57 Neut # (Auto) 8.66 10^3/uL (1.8-7.7) H 10/02/23 05:57 Lymph # (Auto) 7.4 10^3/uL (0.8-4.8) H 10/02/23 05:57 [place] # (Auto) 0.9 10^3/uL (0.2-0.9) 10/02/23 05:57 Eos # (Auto) 0.2 10^3/uL (0.0-0.8) 10/02/23 05:57 Baso # (Auto) 0.1 10^3/uL (0.0-0.1) 10/02/23 05:57 Nucleated RBC % (auto) 0 % 10/02/23 05:57 Nucleated RBCs # 0.0 /100WBC 10/02/23 05:57 Differential Comment Yes 09/28/23 Unknown PT 18.50 SECONDS (12.1-14.9) H 09/29/23 10:12 INR 1.49 (0.8-1.2) H 09/29/23 10:12 APTT 135.4 SECONDS (23.9-36.7) H D 09/23/23 13:50 Sodium 141 mmol/L (136-145) 10/03/23 21:28 Potassium 4.0 mmol/L (3.5-5.1) 10/03/23 21:28 Chloride 104 mmol/L (98-107) 10/03/23 21:28 Carbon Dioxide 27 mmol/L (22-29) 10/03/23 21:28 Anion Gap 14.0 (5-19) 10/03/23 21:28 BUN 19 mg/dL (8-23) 10/03/23 21:28 Creatinine 0.7 mg/dL (0.7-1.2) 10/03/23 21:28 GFR Calculation Not Reportable 05/26/24 21:28 Glucose 117 mg/dL (65-115) H 10/03/23 21:28 POC Glucose 105 mg/dL (70-110) 09/25/23 10:39 Calculated Osmolality 295 mOsm/kg (285-295) 10/03/23 21:28 Lactic Acid 1.6 mmol/L (0.5-2.2) 09/21/23 16:50 Calcium 9.0 mg/dL (8.5-10.5) 10/03/23 21:28 Phosphorus 2.1 mg/dL (2.5-4.5) L 09/27/23 11:55 Magnesium 1.7 mg/dL (1.7-2.3) 10/02/23 05:57 Total Bilirubin 2.3 mg/dL (0.15-1.2) H 10/02/23 05:57 AST 43 U/L (0-40) H 10/02/23 05:57 ALT 26 U/L (0-41) 10/02/23 05:57 Alkaline Phosphatase 216 U/L (40-130) H 10/02/23 05:57 Creatine Kinase 22 U/L (39-308) L 09/29/23 14:48 Troponin T 5th Gen ng/L 165 ng/L (0-15) H* 09/27/23 11:55 Troponin T Baseline 112 ng/L (0-15) H* 09/21/23 16:50 Troponin T 120 Minute 120.0 ng/L (0-15) H 09/21/23 19:02 Delta Troponin T 8.0 ABS# (0-10) 09/21/23 19:02 Troponin T Hi Sens 6Hr 113.4 ng/L (0-15) H 09/21/23 23:13 Troponin T Hi Sens 6Hr Delta 1.4 ng/L (0-12) 09/21/23 23:13 C-Reactive Protein 111.3 mg/L (0.0-4.9) H 10/02/23 05:57 NT-Pro-B Natriuret Pep 9022 pg/mL (0-450) H 10/03/23 21:28 Total Protein 5.0 g/dL (6.6-8.7) L 10/02/23 05:57 Albumin 2.8 g/dL (3.5-5.2) L 10/02/23 05:57 Globulin 2.2 g/dL (1.3-4.6) 10/02/23 05:57 25-OH Vitamin D Total 17 pg/mL (18-72) L 10/02/23 05:57 1,25 Dihydroxy Vit D2 <8 pg/mL 10/02/23 05:57 1,25 Dihydroxy Vit D3 17 pg/mL 10/02/23 05:57 Folate 17.7 ng/mL (4.5-32.2) 09/25/23 20:43 Procalcitonin 0.07 ng/mL (0-0.5) 09/21/23 19:02 TSH 2.98 uIU/mL (0.27-4.20) 09/21/23 19:02 Urine Color Dark yellow (Yellow) 09/21/23 18:20 Urine Appearance Cloudy (CLEAR) A 09/21/23 18:20 Urine pH 6 (5-7) 09/21/23 18:20 Ur Specific [place] 1.015 (1.005-1.030) 09/21/23 18:20 Urine Protein 1+ (Negative) H 09/21/23 18:20 Urine Glucose (UA) Norm (Normal) 09/21/23 18:20 Urine Ketones Negative (Negative) 09/21/23 18:20 Urine Blood 3+ (Negative) H 09/21/23 18:20 Urine Nitrate Negative (Negative) 09/21/23 18:20 Urine Bilirubin Neg (Negative) 09/21/23 18:20 Urine Urobilinogen Norm mg/dL (Negative) 09/21/23 18:20 Ur Leukocyte Esterase 2+ (Negative) H 09/21/23 18:20 Urine RBC >100 /hpf (0-2) H 09/21/23 18:20 Urine WBC >100 /hpf (0-5) H 09/21/23 18:20 Ur Squamous Epith Cells Rare /hpf (0-5) 09/21/23 18:20 Amorphous Sediment Not Reportable 09/21/23 18:20 Urine Bacteria Trace /hpf (NONE) 09/21/23 18:20 Urine Mucus Trace /hpf 09/21/23 18:20 Urine Yeast 4+ /hpf H 09/21/23 18:20 Fluid Color Pale yellow 09/28/23 Unknown Fluid Appearance Cloudy 09/28/23 Unknown Fluid WBC 250 /uL 09/28/23 Unknown Fluid RBC 1.000 10^3/uL 09/28/23 Unknown Fld Polynuclear WBCs # 0.075 09/28/23 Unknown Fld Polynuclear WBCs % 30.000 % 09/28/23 Unknown Fl Mononucl WBCs #(Auto) 0.175 09/28/23 Unknown Fl Mononuclear % Auto 70.000 % 09/28/23 Unknown Fld Crystal Laterality Pleural fluid 09/28/23 Unknown Fluid Albumin 0.6 g/dL 09/28/23 Unknown Fluid LDH 88 U/L 09/28/23 Unknown Pleural Total Protein 0.8 g/dL 09/28/23 Unknown Vancomycin Trough 17.9 ug/mL (10-15) H 09/29/23 14:48 Rheumatoid Factor 11.0 IU/mL (0-14) 09/29/23 14:48 Cycl Citrul Peptide IgG <16 UNITS 09/29/23 14:48 AYDEE IFA Animal Tis Res Negative (NEGATIVE) 09/29/23 14:48 ANCA Screen Negative (NEGATIVE) 09/29/23 14:48 ANCA Titer Not Reportable 09/29/23 14:48 KRISTINE-1 Antibody <1.0 neg AI (<1.0 NEG) 09/29/23 14:48 SS-A Antibody <1.0 neg AI (<1.0 NEG) 09/29/23 14:48 SS-B Antibody <1.0 neg AI (<1.0 NEG) 09/29/23 14:48 Sm (Uriostegui) Antibody <1.0 neg AI (<1.0 NEG) 09/29/23 14:48 LEAF SUCKER OPERATOR Antibody <1.0 neg AI (<1.0 NEG) 09/29/23 14:48 Scl-70 Antibody <1.0 neg AI (<1.0 NEG) 09/29/23 14:48 Centromere B Antibody <1.0 neg AI (<1.0 NEG) 09/29/23 14:48 Thyroid Peroxidase Ab <1 IU/mL (<9) 09/29/23 14:48 Complement C3c 119 mg/dL 09/29/23 14:48 Complement C4c 19 mg/dL 09/29/23 14:48 CH50 Classical Pathway 58 U/mL (31-60) 09/29/23 14:48 Hepatitis A IgM Ab Non-reactive (Nonreactive) 10/02/23 05:57 Hep Bs Antigen Non-reactive (Nonreactive) 10/02/23 05:57 Hep Bs Antibody < 3.5 (11.5-1000) L 10/02/23 05:57 Hep B Core Total Ab Non-reactive (Nonreactive) 10/02/23 05:57 Hepatitis C Antibody Non-reactive (Nonreactive) 10/02/23 05:57 Beta-(1,3)-D-Glucan <31 pg/mL 09/24/23 09:30 B-(1,3)-D-Glucan Intrp Negative 09/24/23 09:30 Vitals Last Vital Signs Temp 98.1 F 10/06/23 07:41 Pulse 83 10/06/23 07:41 Resp 21 H 10/06/23 07:41 BP 161/79 10/06/23 07:41 Pulse Ox 94 10/06/23 07:41 O2 Del Method Room Air 10/06/23 10:04 Discharge Plan Discharge Patient Disposition: Hospice - Medical Facility Condition: Stable Prescriptions: Continued dutasteride 0.5 mg capsule 0.5 mg PO QPM fluticasone propionate 50 mcg/actuation spray,suspension 2 spray intranasal DAILY PRN (Reason: allergies) Rx Instructions: administer into each nostril loratadine 10 mg tablet 10 mg PO DAILY PRN (Reason: allergies) albuterol sulfate [ProAir HFA] 90 mcg/actuation HFA aerosol inhaler 2 puff inhalation BID PRN (Reason: Shortness Of Breath) aspirin [Adult Low Dose Aspirin] 81 mg tablet,delayed release (DR/EC) 81 mg PO QAM (DME) Custom Molded C[employer]mer Orthotics and Orthopedic Shoes See Rx Instructions .Route .MEDSUPPLY Qty: 1 0RF Rx Instructions: As directed [facility] ferrous sulfate [Iron (ferrous sulfate)] 325 mg (65 mg iron) Tablet 325 mg PO DAILY cyclobenzaprine 10 mg Tablet 10 mg PO TID PRN (Reason: Muscle Spasm) clobetasol 0.05 % Cream See Rx Instructions .ROUTE .COMPLEX Rx Instructions: APPLY SPARINGLY TO AFFECTED AREA(S) TOPICALLY TWICE DAILY TO RASH ON HANDS UNTIL RESOLVED NEEDED. DO NOT APPLY TO FACE, GROIN OR SKIN FOLDS. olodaterol 2.5 mcg/actuation Mist 2 inh INHALATION QAM mometasone 200 mcg/actuation Hfa Aerosol Inhaler 1 puff INHALATION BID trazodone 50 mg Tablet 50 mg PO BEDTIME cyanocobalamin (vitamin B-12) [Vitamin B-12] 1,000 mcg Tablet 1,000 mcg PO DAILY ascorbic acid (vitamin C) [Vitamin C] 500 mg Tablet 500 mg PO DAILY gabapentin 300 mg Capsule 300 mg PO TID montelukast 10 mg Tablet 10 mg PO QPM coenzyme Q10 [CoQ-10] 100 mg Capsule 100 mg PO QAM omeprazole magnesium [Prilosec OTC] 20 mg Tablet,Delayed Release (Dr/Ec) 20 mg PO QAM Romie Mag Zinc Plus D3 333 mg-133 unit -133 mg-5 mg Tablet 1 tab PO BID ashwagandha root extract 500 mg Capsule 500 mg PO DAILY losartan 50 mg Tablet 50 mg PO DAILY Qty: 30 0RF multivitamin Tablet 1 tab PO QAM saw palmetto 160 mg Capsule 160 mg PO TID Rx Instructions: give with meal/snack turmeric 400 mg Capsule 400 mg PO BID Eliquis 5 mg tablet 5 mg PO BID potassium gluconate 595 mg (99 mg) Tablet 595 mg PO QPM Miralax 17 gram/dose Powder 17 g PO DAILY cholecalciferol (vitamin D3) 25 mcg (1,000 unit) Tablet 25 mcg PO DAILY ceftriaxone 1 gram Recon Soln 1 g IV Q24H Rx Instructions: FOR 6 WEEKS ampicillin sodium 2 gram Recon Soln 2 g IV Q4H Rx Instructions: FOR 6 WEEKS sodium chloride 0.9 % Solution See Rx Instructions .ROUTE .COMPLEX Rx Instructions: Administer 10ml before and after IV drug administration for flush before and after medications, 10 flushes every 24 hours. Milk of Magnesia 400 mg/5 mL Suspension 30 ml PO DAILY PRN (Reason: Constipation) Dulcolax (bisacodyl) 10 mg Suppository 10 mg WI DAILY PRN (Reason: Constipation) Fleet Enema 19-7 gram/118 mL Enema 118 ml WI DAILY PRN (Reason: Constipation) Discharge Orders: Discharge Order (Routine); Ordered 10/06/23 Ordered By: Cuong Martínez Referrals: [facility] [Outside] Shayla Mesa MD [Primary Care Provider] - Discharge Diet: Usual diet Patient Instructions: Altered Mental Status (ED), Opioid Safety Discharge Attestations Time Spent in Discharge Care*: greater than 30 min Status at Discharge: Cognitive status at discharge: cognitively intact , Behavioral status at discharge: cooperative , Quality Metrics Clinical Quality Measures [ No reported AMI, CVA or VTE this stay] Coding Level of Care Code 23934 Total time (in minutes) for Discharge: 30 Diagnoses Anasarca R60.1 Hypokalemia E87.6 Pleural effusion J90 Elevated bilirubin R17 Thrombocytopenia D69.6 Bacteremia due to Enterococcus R78.81; B95.2
[2023-10-06] MEDS: LORazepam 2 mg/mL INJ 10 mL MDV IVP (11:08)
--- NOTE | 2023-10-06 20:21 | PC.NURSE ---
Addendum entered by Kathryn King RN 10/06/23 21:17: Dr. Lerner notified of . Addendum entered by Kathryn King RN 10/06/23 20:25: states that they are wanting to send patient's body to [facility]. notified that we will place patient's body in the morgue until she is able to get that set up. [facility] and warehouse associate notified of this situation. Original Note: Patient's TOD verified with second RN at 19:49. Family at bedside. Magnet placed over patient's pacemaker after TOD pronounced.
--- NOTE | 2023-10-06 21:10 | PC.NURSE ---
Addendum entered by Kathryn King RN 10/06/23 21:32: Patient transferred to the [facility] at this time with household appliance repairer. Original Note: MTS and saving site state that patient is not a candidate for donation. Post-mortum care completed. Voicemail left to hospice nurse. Patient to be transferred to [facility] soon.
--- NOTE | 2023-10-06 21:16 | PC.NURSE ---
3 [facility] notified of patient passing. Physician notified at this time.
[2023-10-07 09:37] LABS: Vitamin B1(Thiamin) Plas/Ser 140
--- NOTE | 2023-10-09 17:00 | PM.DDS ---
Discharge Providers DDS Date of Admission: 09/21/23 19:05 Date Summary Completed: 10/09/23 Attending Provider at Admission: Catina Maciel MD Time of : 19:49 Attending Provider at Discharge: Cuong Martínez MD Primary Care Provider: Shayla Mesa MD DS Diagnoses Hospital Diagnoses (1) Anasarca: (2) Hypokalemia: (3) Pleural effusion: (4) Elevated bilirubin: (5) Thrombocytopenia: (6) Bacteremia due to Enterococcus: Reason for Visit Reason for Visit Weakness Summary Date and Time of Date of : 10/06/23 Time of : 19:49 Summary Summary: Patient was admitted to the hospital further evaluation and management of altered mental status thought to be in setting of UTI, sepsis along with recent history of bacteremia from Enterococcus. He was continued on IV antibiotics which were broadened given concerns for UTI. During hospitalization blood cultures remain negative but urine culture positive for yeast. On admission there were concerns for non-ST elevation HI for which cardiology was consulted and he underwent repeat echocardiogram that showed an EF of 50% with moderate concentric LVH, grade 2 diastolic dysfunction with bioprosthetic aortic valve, mild to moderate eccentric aortic regurgitation, mild TR with PASP of 44 mmHg. He was found to have a slightly more pericardial effusion as compared to the study done on 08/31. He continued to have leukocytosis for which he again underwent further investigation with CT of chest abdomen pelvis. For persistent pleural effusion he again underwent thoracentesis to rule out empyema. Because of prolonged hospitalization both currently and previous with constant decline in his health multiple goals of care discussions were done with patient and his family at bedside. Patient requested for hospice and comfort care measures. Patient was transitioned to inpatient hospice on 09/27. He and comfortable status on 10/05 at 1949 Additional Data Confirmation of as documented by pronouncing clinician: no pulse and no respirations Family: contacted Additional persons at bedside: nursing staff Attending/PCP notified?: Attending notified Was code activated?: No Autopsy requested?: No Advance directives?: Yes Hospice patient?: Yes Discharge Plan Discharge Patient Disposition: Condition: Stable Probable Cause of Probable cause of : Cardiac arrest DS Attestations Time Spent in /Discharge Care*: less than 30 min Quality - AMI: AMI present?: No Quality - Stroke: CVA present?: No Quality - VTE: VTE present?: No Deep Vein Thrombosis/Pulmonary Embolism Present on Admission: No Coding Level of Care Code 19385 Total time (in minutes) for Discharge: 20 Diagnoses Anasarca R60.1 Hypokalemia E87.6 Pleural effusion J90 Elevated bilirubin R17 Thrombocytopenia D69.6 Bacteremia due to Enterococcus R78.81; B95.2
[2023-10-11] LABS: DNA AB (DS) CRITHIDIA,IFA NEGATIVE (NEGATIVE)
== END 2023-10-06 21:34 | disposition expired | DRG 871 ==
LOC: ER 16:46 → MEDSURG 19:27
PROVIDERS: Family Medicine; Internal Medicine; Admitting Provider Internal Medicine; Emergency Provider Family Medicine; PCP Family Medicine; Visit Provider Student in an Organized Health Care Education/Training Program
DX: A41.9 Sepsis, unspecified organism (principal); G93.41 Metabolic encephalopathy; I21.4 Non-ST elevation (NSTEMI) myocardial infarction; B37.49 Other urogenital candidiasis; I50.30 Unspecified diastolic (congestive) heart failure; J90 Pleural effusion, not elsewhere classified; R65.20 Severe sepsis without septic shock; E87.6 Hypokalemia; D69.6 Thrombocytopenia, unspecified; B95.2 Enterococcus as the cause of diseases classified elsewhere; I11.0 Hypertensive heart disease with heart failure; Z95.3 Presence of xenogenic heart valve; I08.2 Rheumatic disorders of both aortic and tricuspid valves; Z51.5 Encounter for palliative care; I46.9 Cardiac arrest, cause unspecified; I48.91 Unspecified atrial fibrillation; Z96.89 Presence of other specified functional implants; Z87.891 Personal history of nicotine dependence; Z75.1 Person awaiting admission to adequate facility elsewhere; Z66 Do not resuscitate
CPT/HCPCS: 32555; 36415; 36416; 36592; 51702; 70450; 71045; 71250; 74176; 76705; 80048; 80053; 80202; 80503; 81001; 82042; 82550; 82652; 82746; 82962; 83605; 83615; 83735; 83880; 84100; 84145; 84157; 84425; 84443; 84484; 85025; 85610; 85730; 86036; 86140; 86160; 86162; 86200; 86235; 86255; 86376; 86431; 86705; 86706; 86709; 86803; 87040; 87070; 87075; 87086; 87102; 87106; 87205; 87206; 87340; 87449; 89050; 93005; 93308; 93970; 94640; 94664; 96365; 96367; 96375; 97110; 97116; 97161; 97167; 97530; 97535; 99285; C9113; J0360; J1450; J1644; J1940; J2060; J2185; J2270; J3370; J3480; P9046